=== PATIENT | female | born 1960 | race Caucasian/White ===

== ENCOUNTER 2016-11-13 11:57 | Emergency (ER) | payer MEDICAID, OTHER ==
[~2016-11-13] VITALS: Ht 142.2 cm; Wt 45.4 kg
[2016-11-13 13:15] LABS: Basophils # (auto) 0 uL; Basophils % (auto) 0.1 % (0.0-2.0); DEFINITIVE VIEW TRANSMISSION; Eosinophils # (auto) 0.1 uL; Eosinophils % (auto) 0.6 % (0.0-7.0); Hematocrit 40.7 % (36.0-46.0); Hemoglobin 12.7 g/dL (12.2-16.2); Lymphocytes # (auto) 0.8 uL; Lymphocytes % (auto) 5.9 % (10.0-50.0); Mean Corpuscular Hemoglobin 26.8 pg (28.0-32.0); Mean Corpuscular Hgb Conc. 31.2 g/dL (32.0-36.0); Mean Corpuscular Volume 85.9 fL (80.0-100.0); Mean Platelet Volume 8.8 fL (7.4-10.4); Monocytes # (auto) 1.2 uL; Monocytes % (auto) 8.3 % (0.0-12.0); Neutrophils # (auto) 12.1 uL; Neutrophils % (auto) 85.1 % (37.0-80.0); Platelet Count (auto) 336 10^3/uL (140-450); Red Cell Distribution Width 15.8 % (11.6-16.0); White Blood Cell 14.2 10^3/uL (4.4-10.8)
[2016-11-13] MEDS ORDERED: TETANUS-DIPTH-ACEL PERTUSSIS 0.5ML SYRG IM ONE (13:15)
[2016-11-13 13:37] LABS: Albumin 2.8 g/dL (3.4-5.0); BUN/Creatinine Ratio 8.5; Calcium 9.2 mg/dL (8.5-10.1); Magnesium 2.2 mg/dL (1.6-2.6); Potassium 3.8 mmol/L (3.5-5.1)
[2016-11-13] MEDS ORDERED: MORPHINE SULF INJ 2 MG/ML SYRINGE 1ML IV ONE ×4 (13:45→21:30)
[2016-11-13] MEDS ORDERED: ONDANSETRON HCL 4 MG/2 ML VIAL IV ONE ×4 (13:45→21:30)
[2016-11-13] MEDS ORDERED: SODIUM CHLORIDE 0.9% 1,000 ML IV ONE (13:45)
[2016-11-13 14:46] LABS: Bilirubin, Total 1.1 mg/dL (0.2-1.0); Total Protein 7.1 g/dL (6.4-8.2)
[2016-11-13 22:09] VITALS: BP 118/73
== END 2016-11-13 22:50 | disposition short-term general hospital (02) ==
LOC: ER 11:57
DX: S22.32XA Fracture of one rib, left side, initial encounter for closed fracture (principal); S61.217A Laceration without foreign body of left little finger without damage to nail, initial encounter; R06.02 Shortness of breath; I10 Essential (primary) hypertension; V49.9XXA Car occupant (driver) (passenger) injured in unspecified traffic accident, initial encounter; Y93.89 Activity, other specified; Y99.8 Other external cause status; Y92.89 Other specified places as the place of occurrence of the external cause
CPT/HCPCS: 36415; 71250; 73110; 73130; 74176; 80053; 83735; 84484; 85025; 90471; 90715; 96361; 96374; 96375; 96376; 99285; J2270; J2405; J7030

== ENCOUNTER 2024-02-21 12:05 | Inpatient (IN) | payer MEDICAID ==
[~2024-02-21] VITALS: Ht 152.4 cm; Wt 109.0 kg
[2024-02-21 12:50] LABS: Basophils # (auto) 0.1 10 ^3/uL (0-0.2); Basophils % (auto) 0.6 % (0.0-2.0); Eosinophils # (auto) 0.1 10 ^3/uL (0-0.8); Eosinophils % (auto) 0.9 % (0.0-7.0); Hematocrit 45.6 % (36.0-46.0); Lymphocytes # (auto) 1.3 10 ^3/uL (0.4-5.4); Lymphocytes % (auto) 9.2 % (10.0-50.0); Mean Corpuscular Hemoglobin 29.2 pg (28.0-32.0); Mean Corpuscular Hgb Conc. 32.9 g/dL (32.0-36.0); Mean Corpuscular Volume 88.8 fL (80.0-100.0); Monocytes % (auto) 7.2 % (0.0-12.0); Neutrophils # (auto) 11.7 10 ^3/uL (1.6-8.6); Neutrophils % (auto) 82.1 % (37.0-80.0); Red Blood Cells 5.13 10^6/uL (4.0-5.20); Red Cell Distribution Width 13.9 % (11.8-14.3); White Blood Cell 14.2 10^3/uL (4.4-10.8)
[2024-02-21 13:00] LABS: Chloride 108 mmol/L (98-107); Potassium 4.5 mmol/L (3.5-5.1); Sodium 139 mmol/L (136-145)
[2024-02-21 13:01] LABS: Anion Gap 6 (5-15); Calcium 9.7 mg/dL (8.7-10.4); Carbon Dioxide 25 mmol/L (20-30)
[2024-02-21 13:06] LABS: BUN/Creatinine Ratio 11.2 (10.0-20.0); Blood Urea Nitrogen 12 mg/dL (9-23); Glucose 111 mg/dL (74-106); Lipase 46 U/L (12-53)
[2024-02-21] MEDS: cefTRIAXone 1GM/50ML D5W 50 ML IV ONE (13:33)
[2024-02-21] MEDS: SODIUM CHLORIDE 0.9% 1,000 ML IV ONE (13:33)
[2024-02-21] MEDS ORDERED: DOCUSATE SOD 100 MG CAP PO PRN (15:45)
[2024-02-21] MEDS: SODIUM CHLORIDE 0.9% 1,000 ML IV SCH (15:45)
[2024-02-21] MEDS: MORPHINE SULFATE INJ 2 MG/ml SYRG IV PRN (17:40)
[2024-02-21] MEDS: ONDANSETRON HCL 4 MG/2 ML VIAL IV PRN (17:40)
[2024-02-21 18:01] VITALS: BP 122/72; PULSE 65; RESP 20; TEMP 98.4; O2SAT 96
[2024-02-21 18:15] VITALS: BP 122/72; PULSE 74; RESP 20; TEMP 98.4; O2SAT 96
[2024-02-21] MEDS: PIPERACILLIN-TAZOB 3.375GM 100 ML IV SCH (18:23)
[2024-02-21 21:00] VITALS: BP 134/70; PULSE 74; RESP 20; TEMP 97.6; O2SAT 90
[2024-02-21] MEDS: HYDROmorphone HCL 2 MG/ML VL/or syr IV ONE (21:53)
[2024-02-22] VITALS (7 sets, daily range): BP systolic 102–119; BP diastolic 48–61; PULSE 20–91; RESP 18–20; TEMP 97.7–100.4; O2SAT 90–96
[2024-02-22 07:23] LABS: Basophils # (auto) 0.1 10 ^3/uL (0-0.2); Basophils % (auto) 0.6 % (0.0-2.0); Eosinophils # (auto) 0.1 10 ^3/uL (0-0.8); Eosinophils % (auto) 0.9 % (0.0-7.0); Hematocrit 45.9 % (36.0-46.0); Hemoglobin 14.9 g/dL (12.2-16.2); Lymphocytes % (auto) 8.5 % (10.0-50.0); Mean Corpuscular Hemoglobin 28.7 pg (28.0-32.0); Mean Corpuscular Hgb Conc. 32.4 g/dL (32.0-36.0); Mean Corpuscular Volume 88.5 fL (80.0-100.0); Monocytes # (auto) 0.7 10 ^3/uL (0-1.3); Monocytes % (auto) 6.5 % (0.0-12.0); Neutrophils # (auto) 9.5 10 ^3/uL (1.6-8.6); Neutrophils % (auto) 83.5 % (37.0-80.0); Red Blood Cells 5.18 10^6/uL (4.0-5.20); Red Cell Distribution Width 13.8 % (11.8-14.3); White Blood Cell 11.3 10^3/uL (4.4-10.8)
[2024-02-22 07:35] LABS: Alanine Aminotransferase 14 U/L (7-40); Albumin 3.9 g/dL (3.2-4.8); Alkaline Phosphatase 152 U/L (46-116); Anion Gap 7 (5-15); Aspartate Aminotransferase 14 U/L (13-40); BUN/Creatinine Ratio 7.8 (10.0-20.0); Blood Urea Nitrogen 10 mg/dL (9-23); Carbon Dioxide 24 mmol/L (20-30); Chloride 108 mmol/L (98-107); Glucose 108 mg/dL (74-106); Potassium 4.4 mmol/L (3.5-5.1); Sodium 139 mmol/L (136-145)
[2024-02-22 07:36] LABS: Total Protein 6.2 g/dL (5.7-8.2)
[2024-02-23] VITALS (8 sets, daily range): BP systolic 91–131; BP diastolic 41–69; PULSE 66–85; RESP 17–19; TEMP 97.1–98.7; O2SAT 93–96
[2024-02-23 12:50] LABS: Urine Bacteria FEW /hpf (None Seen); Urine Blood Negative /uL (Negative); Urine Clarity Clear (Clear); Urine Color Light-Yellow (Yellow); Urine Protein, UAD Negative (Negative); Urine Urobilinogen Normal (Negative); Urine WBC 3 /hpf (0 - 5); Urine pH 6.5 (5.0-9.0)
[2024-02-24] VITALS (7 sets, daily range): BP systolic 114–138; BP diastolic 59–76; PULSE 66–94; RESP 20; TEMP 98.4–98.8; O2SAT 93–96
[2024-02-24] MEDS: MANNITOL FTV 25% 12.5 GM/50 ML 50 ML IV ONE (15:30)
[2024-02-25 01:01] VITALS: BP 140/85; PULSE 81; RESP 18; TEMP 98.4; O2SAT 92
[2024-02-25 05:01] VITALS: BP 114/78; PULSE 81; RESP 20; TEMP 98.2; O2SAT 91
[2024-02-25 08:00] VITALS: PULSE 88; RESP 20; O2SAT 95
[2024-02-25 08:23] VITALS: BP 122/72; PULSE 78; RESP 20; TEMP 98; O2SAT 94
[2024-02-25 12:40] VITALS: BP 101/56; PULSE 64; RESP 20; TEMP 98; O2SAT 95
[2024-02-25] MEDS ORDERED: LEVO500T91 PO (12:58)
[2024-02-25] MEDS ORDERED: TAMS-35 PO (13:02)
[2024-02-25] MEDS ORDERED: PIPERACILLIN-TAZOB 3.375GM 100 ML IV SCH (21:00)
== END 2024-02-25 16:20 | disposition home or self-care (01) | DRG 465 ==
LOC: EDBD 12:05 → ER 12:05 → OVERFLOW 15:54 → WEST WING 17:53
PROVIDERS: ADMIT Nurse Practitioner Family; ATTEND Internal Medicine
DX: N13.2 Hydronephrosis with renal and ureteral calculous obstruction (principal); N17.0 Acute kidney failure with tubular necrosis; D72.829 Elevated white blood cell count, unspecified; K42.9 Umbilical hernia without obstruction or gangrene; K43.9 Ventral hernia without obstruction or gangrene; I10 Essential (primary) hypertension; N21.1 Calculus in urethra; F17.290 Nicotine dependence, other tobacco product, uncomplicated; Z82.49 Family history of ischemic heart disease and other diseases of the circulatory system; Z83.3 Family history of diabetes mellitus; Z79.899 Other long term (current) drug therapy
CPT/HCPCS: 36415; 74176; 80048; 80053; 81001; 83690; 85025; 93005; 96365; 96375; G0378; J2405; J2543

== ENCOUNTER 2024-09-02 15:00 | Inpatient (IN) | payer MEDICAID ==
[~2024-09-02] VITALS: Ht 172.7 cm; Wt 118.6 kg
[2024-09-02] MEDS: CEFEPIME 1GM/ 50ML 50 ML IV SCH (02:00)
[~2024-09-02 15:00] MED LIST: LEVO500T91 PO; TAMS-35 PO
--- NOTE | 2024-09-02 15:14 | ED.PDOC ---
SOB-HPI HPI Comments 63y F who presents to the ED via EMS for chief complaint of shortness of breath. Per EMS, pt has been having shortness of breath, back pain and fever since last night PM. Pt states her symptoms have been worsening and eventually called EMS to the scene. EMS on scene noted pt had 70% 02 sat on room air with noted respiratory distress. Pt was placed on BIPAP and brought to the ED. Pt in the ED, noted to have increased respiratory distress with 02 sat of 80% and temp of 102F and heart rate of 120 in the ED. Pt unable to answer any questions due to her respiratory distress. 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 all SCRAP PICKER Hx Family History Family History: No family hx of HTN Social History Smoker: Non-Smoker Alcohol: Rarely Drugs: Denies Drug Use Lives In: Home Constitutional: reports: fever; denies: chills, diaphoresis, fatigue, malaise, sweats, weakness, others EENTM: denies: blurred vision, double vision, ear bleeding, ear discharge, ear drainage, ear pain, ear ringing, eye pain, eye redness, hearing loss, mouth pain, mouth swelling, nasal discharge, nose bleeding, nose congestion, nose pain, photophobia, tearing, throat pain, throat swelling, voice changes, others Respiratory: reports: SOB at rest, shortness of breath, SOB with excertion; denies: cough, hemoptysis, orthopnea, stridor, wheezing, others Cardiovascular: denies: chest pain, dizzy spells, diaphoresis, Dyspnea on exertion, edema, irregular heart beat, left arm pain, lightheadedness, palpitations, PND, syncope, others Gastrointestinal: denies: abdomen distended, abdominal pain, blood streaked bowels, constipated, diarrhea, dysphagia, difficulty swallowing, hematemesis, melena, nausea, poor appetite, poor fluid intake, rectal bleeding, rectal pain, vomiting, others Genitourinary: denies: abnormal vagina bleeding, burning, dyspareunia, dysuria, flank pain, frequency, hematuria, incontinence, pain, , vagina discharge, urgency, others Neurological: denies: dizziness, fainting, headache, left sided numbness, left sided weakness, numbness, paresthesia, pre-existing deficit, right sided numbness, right sided weakness, seizure, speech problems, tingling, tremors, weakness, others Musculoskeletal: reports: back pain; denies: gout, joint pain, joint swelling, muscle pain, muscle stiffness, neck pain, others Integumetry: denies: bruises, change in color, change in hair/nails, dryness, laceration, lesions, lumps, rash, wounds, others Allergic/Immunocompromised: denies: Difficulty Healing, Frequent Infections, Hives, Itching, others Hematologic/Lymphatic: denies: anemia, blood clots, easy bleeding, easy bruising, swollen glands, others Endocrine: denies: excessive hunger, excessive sweating, excessive thirst, excessive urination, flushing, intolerance to cold, intolerance to heat, unexplained weight gain, unexplained weight loss, others Psychiatric: denies: anxiety, bipolar disorder, depression, hopeless, panic disorder, schizophrenia, sleepless, suicidal, others All Other Systems: Reviewed and Negative Physical Exam General Appearance: Severe Distress, Other HEENT: Normal ENT Inspection, Pharynx Normal, TMs Normal Neck: Full Range of Motion, Non-Tender, Normal, Normal Inspection Respiratory: Crackles, Respiratory Distress, Wheezing Cardiovascular: Tachycardia Breast Exam: Deferred Gastrointestinal: No Organomegaly, Non Tender, No Pulsatile Mass, Normal Bowel Sounds, Soft Genitalia: Deferred Pelvic: Deferred Rectal: Deferred Extremities: No calf tenderness, Normal capillary refill, Normal inspection, Normal range of motion, Non-tender, No pedal edema Neurologic: Other (Infused) Cerebellar Function: NOT DONE Reflexes: NOT DONE Skin: Cyanosis Lymphatic: No Adenopathy Was a procedure done? 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 Room prepared for procedure: Yes Maximal sterile barrier precau: Sterlie gloves, Large sterlie drape Skin preparation completely dr: Yes Insertion site: Right, Internal jugular Intubation Indication: Airway Protection Prep: Preoxygenation Pretreated with: Sedation (etomidate 20) Medicated with: Vecuronium (100mg rocuronium) Intubation Approach: Orotracheal Intubation size: cm (8.0) Differential Dx Differential Diagnosis: Bronchitis, Cardiogenic Shock, CHF, COPD, Pneumonia, Pulmonary Embolism, Respiratory Distress Comments COVID, Influenza A and B, X-Ray, Labs, Meds, VS Vital Signs Date Time Temp Pulse Resp B/P (MAP) Pulse Ox O2 Delivery O2 Flow Rate FiO2 09/02/24 18:45 101.7 112 20 86/48 (61) 95 101.7 09/02/24 18:45 86/48 09/02/24 18:36 89/52 09/02/24 18:36 102.0 114 20 89/52 (64) 94 102.0 09/02/24 18:30 86/52 09/02/24 18:15 102.9 121 20 101/56 (71) 93 102.9 09/02/24 18:06 103.5 125 20 103/57 (72) 92 103.5 09/02/24 18:00 103/57 09/02/24 18:00 103/57 09/02/24 17:46 140 18 106/52 (70) 95 09/02/24 17:37 127/68 09/02/24 17:30 143 18 127/68 (87) 95 09/02/24 17:15 144 18 140/67 (91) 95 09/02/24 17:11 100/46 09/02/24 17:10 78 20 158/67 (97) 95 100 09/02/24 17:00 143 20 100/46 (64) 83 09/02/24 17:00 100/46 09/02/24 17:00 100/46 09/02/24 16:45 147 20 175/85 (115) 84 09/02/24 16:34 144 18 163/82 (109) 84 09/02/24 16:30 163/82 09/02/24 16:13 124 09/02/24 16:12 127/64 09/02/24 16:00 103.9 129 20 183/89 (120) 83 103.9 09/02/24 16:00 135 09/02/24 15:54 134 20 183/89 (120) 91 100 09/02/24 15:41 127/67 09/02/24 15:40 103.9 117 55 09/02/24 15:39 Mechanical Ventilator+ 100 100 09/02/24 15:39 117 24 127/67 (87) 92 09/02/24 15:07 102.0 120 60 127/99 (108) 86 Lab Test 09/02/24 17:44 09/02/24 16:28 09/02/24 16:00 09/02/24 15:29 Range/Units Lactic Acid Level 2.6 *H 2.5 *H 0.4-2.0 mmol/L Troponin I High Sensitivity 45 *H 18 </=34 ng/L White Blood Count 32.9 *H 4.4-10.8 10^3/uL Red Blood Count 5.90 H 4.0-5.20 10^6/uL Hemoglobin 17.6 H 12.2-16.2 g/dL Hematocrit 53.2 H 36.0-46.0 % Mean Corpuscular Volume 90.2 80.0-100.0 fL Mean Corpuscular Hemoglobin 29.9 28.0-32.0 pg Mean Corpuscular Hemoglobin Concent 33.1 32.0-36.0 g/dL Red Cell Distribution Width 13.8 11.8-14.3 % Platelet Count 316 140-450 10^3/uL Mean Platelet Volume 8.0 6.9-10.8 fL Neutrophils (%) (Auto) 37.0-80.0 % Lymphocytes (%) (Auto) 10.0-50.0 % Monocytes (%) (Auto) 0.0-12.0 % Basophils (%) (Auto) 0.0-2.0 % Neutrophils # (Auto) 1.6-8.6 10 ^3/uL Lymphocytes # (Auto) 0.4-5.4 10 ^3/uL Monocytes # (Auto) 0-1.3 10 ^3/uL Differential Total Cells Counted 100.0 100 Neutrophils % (Manual) 57 37.0-80.0 Band Neutrophils % (Manual) 28 Lymphocytes % (Manual) 5 L 10.0-50.0 Monocytes % (Manual) 10 0-12 Eosinophils % (Manual) 0 0-7 Basophils % (Manual) 0 0.0-2.0 Metamyelocytes % (manual) 0 Myelocytes % (Manual) 0 Promyelocytes % (Manual) 0 Blast Cells % (Manual) 0 Reactive Lymphocytes 0 Platelet Estimate Adequate [place] Cells Moderate Sodium Level 135 L 136-145 mmol/L Potassium Level 4.1 3.5-5.1 mmol/L Chloride Level 103 98-107 mmol/L Carbon Dioxide Level 20 20-31 mmol/L Anion Gap 12 5-15 Blood Urea Nitrogen 15 9-23 mg/dL Creatinine 0.96 0.550-1.02 mg/dL Glomerular Filtration Rate Calc 67 >90 mL/min BUN/Creatinine Ratio 15.6 10.0-20.0 Serum Glucose 135 H 74-106 mg/dL Calcium Level 10.2 8.7-10.4 mg/dL Total Bilirubin 2.6 H 0.2-1.0 mg/dL Aspartate Amino Transferase (AST) 49 H 13-40 U/L Alanine Aminotransferase (ALT) 32 7-40 U/L Alkaline Phosphatase 164 H 46-116 U/L B-Type Natriuretic Peptide 249.65 0-100 pg/mL Total Protein 6.7 5.7-8.2 g/dL Albumin 4.2 3.2-4.8 g/dL Lipase 20 12-53 U/L Urine Color Yellow Yellow Urine Clarity Turbid H Clear Urine pH 5.5 5.0-9.0 Urine Specific [place] 1.024 1.001-1.035 Urine Protein Trace H Negative Urine Ketones Trace Negative Urine Blood Negative Negative /uL Urine Nitrite Negative Negative Urine Bilirubin Negative Negative Urine Urobilinogen 3 H Negative mg/dL Urine Leukocyte Esterase 2+ Negative /uL Urine RBC 1 0 - 4 /hpf Urine WBC 9 0 - 5 /hpf Urine Squamous Epithelial Cells Mod <5 /hpf Urine Bacteria Few H None Seen /hpf Urine Glucose Normal Normal mg/dL Influenza Type A Antigen Negative Negative Influenza Type B Antigen Negative Negative Test 09/02/24 15:13 Range/Units Blood Gas Specimen Type Arterial Blood Gas Sample Site Left radial Blood Gas Patient Temperature 37.0 Arterial Blood Date Drawn [id number] Arterial Blood pH 7.476 H 7.350-7.450 Arterial Blood Partial Pressure CO2 30.2 L 32.0-45.0 mmHg Arterial Blood Partial Pressure O2 48.4 *L 83.0-108.0 mmHg Arterial Blood HCO3 21.8 21.0-28.0 mmol/L Arterial Blood Oxygen Saturation 86.6 L 94.0-98.0 % Arterial Blood Base Excess -0.5 -2.0-3.0 mmol/L Arterial Blood Oxyhemoglobin 84.4 L 94.0-98.0 % Arterial Blood Carboxyhemoglobin 2.3 H 0.5-1.5 % Arterial Blood Methemoglobin 0.2 0.0-1.5 % Cy Test Modified Blood Gas Total Hemoglobin 16.80 H 12.0-16.0 g/dL Blood Gas Set Respiration Rate 12.0 Blood Gas Modality Mask - bipap FiO2 % 100.0 Blood Gas EPAP 5 Blood Gas IPAP 20 Blood Gas Critical Value Read Back yes Blood Gas Notified Whom lakshmi Napier md Blood Gas Notified Time [id number] Blood Gas Notified By Microbiology Date/Time Source Procedure Growth Status 09/02/24 17:44 Blood Blood Culture - Preliminary Resulted 09/02/24 16:28 Blood Blood Culture - Preliminary NO GROWTH AFTER 48 HOURS OF INCUBATION. Resulted 09/02/24 16:00 Urine - [place] Urine Culture - Preliminary Resulted 09/02/24 15:35 Sputum Gram Stain - Final Resulted 09/02/24 15:35 Respiratory Culture - Preliminary Methicillin Resistant S.aureus Resulted [place] [address] Ph: [phone] DIAGNOSTIC IMAGING Diagnostic Imaging Report : [id number] Signed PATIENT: JJ GLYNNT: [id number] UNIT: [id number] : 1960 LOC: ER ROOM / BED: / AGE / SEX: 63 / F ADM STATUS: REG ER SERVICE 1529 ORDERING PHYSICIAN: BALDEV NAPIER MD PROCEDURE(s): CXRP - CHEST PORTABLE REASON: sob ORDER NUMBER(s): [id number], ACCESSION NUMBER(s): [id number] CHEST RADIOGRAPH Indication: sob Technique: Single frontal view of the chest was obtained COMPARISON: None FINDINGS: Lines and Tubes: Endotracheal tube and enteric catheter in satisfactory position. Lungs: Bilateral lower lobe airspace disease. Pleura: Small left pleural effusion. No pneumothorax. Cardiomediastinal contours: Unremarkable Bones: Unremarkable IMPRESSION: Lines and tubes in satisfactory position. Pulmonary edema. ATED BY: JOVANI MCGHEE MD DICTATED DATE/TIME: 09/02/24 1635 SIGNED BY: JOVANI MCGHEE MD SIGNED DATE/TIME: 09/02/24 1635 CC: Time of 1ST Reevaluation: 15:40 Reevaluation 1ST: Unchanged Patient Education/Counseling: Diagnosis, Treatment Family Education/Counseling: No Family Present Departure 1 Departure Time of Disposition: 00:47 (Patient presenting respiratory distress. Patient was intubated and central line was placed. If you would labs he had x-ray and we will admit patient to ICU) Impression: Primary Impression: Acute respiratory failure Qualified Codes: J96.01 - Acute respiratory failure with hypoxia Additional Impression: Weakness Disposition: ADMITTED INPATIENT Admit to: ICU Condition: Critical Critical Care Note Critical Care Time?: Yes Critical care comment: Acute Respiratory failure Authorized and Performed by: Baldev Napier MD Total critical care time: Approximately 42 minutes Due to a high probability of clinically significant, life threatening deterioration, the patient required my highest level of preparedness to intervene emergently and I personally spent this critical care time directly and personally managing the patient. This critical care time included obtaining a history; examining the patient; pulse oximetry; ordering and review of studies; arranging urgent treatment with development of a management plan; evaluation of patient's response to treatment; frequent reassessment; and, discussions with other providers. This critical care time was performed to assess and manage the high probability of imminent, life-threatening deterioration that could result in multi-organ failure. It was exclusive of separately billable procedures and treating other patients and teaching time. Please see my other sections and the rest of the note for further information on patient assessment and treatment. Stability Stability form required: No Heart Score Heart Score: Heart Score Response (Comments) Value History Moderate Suspicious 1 EKG Repolarization Disturb 1 Age 45-64 1 Risk Factors 1 or 2 risk factors 1 Troponin 1-2 x's Normal limit 1 Total 5 I personally scribed for BALDEV NAPIER MD ([place]) on 09/02/24 at 15:14. Electronically submitted by Genoveva Oliveira ([email or web address]). I personally scribed for BALDEV NAPIER MD ([place]) on 09/02/24 at 16:22. Elec tronically submitted by Genoveva Oliveira (ELIJAH). I personally scribed for BALDEV NAPIER MD ([facility]) on 09/02/24 at 16:49. Electron[facility] ([facility] I personally scribed for BALDEV NAPIER MD ([facility]) on 09/02/24 at 17:07. Electronically submitted by Genoveva Oliveira ([facility]). BALDEV NAPIER MD Sep 02, 2024 15:14
[2024-09-02] MEDS: KETAMINE 50mg/ML 10ml Vial (500mg/10ml) IV ONE (15:25)
[2024-09-02] MEDS: ALBUTEROL SULF 2.5 MG/0.5ML(0.5%) NEB SOLN NEB ONE (15:30)
[2024-09-02] MEDS: IPRATROPIUM BROM 0.5 MG/2.5ML INH SOL NEB ONE (15:30)
[2024-09-02] MEDS: ETOMIDATE (2MG/ML) 20ML VIAL IV ONE ×2 (15:41→15:42)
[2024-09-02] MEDS: ROCURONIUM 10MG/ML 10ML VIAL IV ONE ×4 (15:41→17:11)
[2024-09-02] MEDS: fentaNYL Drip 2500mCg/250mlNS 250 ML IV SCH (15:45)
[2024-09-02] MEDS: MIDAZOLAM DRIP 50 mg/50mL 50 ML IV SCH (15:45)
[2024-09-02] MEDS: PROPOFOL 100 ML IV SCH ×2 (15:45→16:12)
[2024-09-02] MEDS: PROPOFOL 100 ML IV ONE (15:48)
[2024-09-02] MEDS: KETAMINE 50mg/ML 10ml Vial 10 ML ONE (15:48)
--- NOTE | 2024-09-02 16:39 | DVH ---
CHEST RADIOGRAPH Indication: sob Technique: Single frontal view of the chest was obtained COMPARISON: None FINDINGS: Lines and Tubes: Endotracheal tube and enteric catheter in satisfactory position. Lungs: Bilateral lower lobe airspace disease. Pleura: Small left pleural effusion. No pneumothorax. Cardiomediastinal contours: Unremarkable Bones: Unremarkable IMPRESSION: Lines and tubes in satisfactory position. Pulmonary edema.
[2024-09-02] MEDS: ACETAMINOPHEN IV 1000 MG/100ML (10MG/ML) IV STA (16:53)
[2024-09-02 16:55] LABS: Mean Corpuscular Hemoglobin 29.9 pg (28.0-32.0)
[2024-09-02 16:58] LABS: Hematocrit 53.2 % (36.0-46.0); Hemoglobin 17.6 g/dL (12.2-16.2); Mean Corpuscular Hgb Conc. 33.1 g/dL (32.0-36.0); Mean Corpuscular Volume 90.2 fL (80.0-100.0); Platelet Count (auto) 316 10^3/uL (140-450); Red Cell Distribution Width 13.8 % (11.8-14.3)
[2024-09-02 17:07] LABS: White Blood Cell 32.9 10^3/uL (4.4-10.8)
[2024-09-02 17:09] LABS: Basophils % (manual) 0 (0.0-2.0); Blast Cells 0; Eosinophils % (manual) 0 (0-7); Metamyelocytes % 0; Myelocytes % 0; Promyelocytes % 0; Reactive Lymphocytes 0
[2024-09-02 17:23] LABS: Alanine Aminotransferase 32 U/L (7-40); Albumin 4.2 g/dL (3.2-4.8); Alkaline Phosphatase 164 U/L (46-116); Anion Gap 12 (5-15); Aspartate Aminotransferase 49 U/L (13-40); BUN/Creatinine Ratio 15.6 (10.0-20.0); Bilirubin, Total 2.6 mg/dL (0.2-1.0); Blood Urea Nitrogen 15 mg/dL (9-23); Calcium 10.2 mg/dL (8.7-10.4); Carbon Dioxide 20 mmol/L (20-31); Chloride 103 mmol/L (98-107); Glucose 135 mg/dL (74-106); Potassium 4.1 mmol/L (3.5-5.1); Sodium 135 mmol/L (136-145); Total Protein 6.7 g/dL (5.7-8.2)
[2024-09-02 17:25] LABS: Lipase 20 U/L (12-53)
[2024-09-02 17:27] LABS: Lactic Acid w/Reflex 2.5 mmol/L (0.4-2.0)
[2024-09-02 17:28] LABS: Base Excess -0.5 mmol/L (-2.0-3.0)
[2024-09-02 17:33] LABS: Urine Bacteria FEW /hpf (None Seen); Urine Blood Negative /uL (Negative); Urine Clarity Turbid (Clear); Urine Color Yellow (Yellow); Urine Protein, UAD TRACE (Negative); Urine Specific Gravity 1.024 (1.001-1.035); Urine Squamous Epithelial Cell MOD /hpf (<5); Urine Urobilinogen 3 mg/dL (Negative); Urine WBC 9 /hpf (0 - 5); Urine pH 5.5 (5.0-9.0)
[2024-09-02] MEDS: VANCOMYCIN 1GM/250ML KIT 200 ML IV ONE (17:36)
[2024-09-02] MEDS: FUROSEMIDE 40 MG/4 ML VIAL IV ONE (17:37)
[2024-09-02 17:50] LABS: Band Neutrophils % (manual) 28; Lymphocytes % (manual) 5 (10.0-50.0); Monocytes % (manual) 10 (0-12); Platelet Estimate Adequate
[2024-09-02] MEDS ORDERED: VANCOMYCIN PER PHARMACY 0 MG IV SCH (18:30)
[2024-09-02] MEDS: KETOROLAC TROMETH 30 MG/ML 1ML VIAL IV ONE (18:37)
--- NOTE | 2024-09-02 18:48 | DVHINCON2 ---
Date of service: Sep 02, [address] Banda Reason for Consultation Acute hypoxic respiratory failure History of Present Illness 63-year-old woman history of hypertension, pulmonary embolism, morbid obesity who presented with a chief complaint of shortness of breath. She has been having shortness of breath, back pain and fever since the night prior to admission. Her symptoms worsened and called EMS for transportation to the ED. EMS found her to have a pulse oximetry reading of 70% on room air and in respiratory distress. She was initiated on noninvasive positive pressure ventilation. In the emergency department she continued to be febrile and hypoxic. She was tachycardic. She was emergently intubated and placed on mechanical ventilation. History is obtained from EMR, RN and MD caring for patient. Pulmonary consultation is called due to acute hypoxic respiratory failure on mechanical ventilator management. Review of systems: Fever, shortness of breath at rest and exertion, back pain. 14 point review of systems unable to be obtained due to patient's critical condition. Past medical history: Hypertension, pulmonary embolism Past surgical history: Hernia repair Medications: Reviewed Allergies: No known drug allergies. Family history: No family history of premature CAD. No family history of lung disease. Social history: Nonsmoker. Social alcohol use. No illicit drug use. Lives at home. Family History: Diabetes mellitus G8 BROTHER FH: hypertension G8 FATHER Allergies: Coded Allergies: Hydrocodone (Verified Allergy, Mild, 09/02/24) Itchy Home Meds Active Scripts Tamsulosin Hcl (Flomax) 0.4 Mg Cap, 1 CAP PO HS, #10 CAP 11 Refills Prov:RADHA DE LA TORRE MD 02/25/24 Levofloxacin Hemihydrate (LEVAQUIN 500 MG) 500 Mg Tab, 1 TAB PO DAILY, #7 TAB Prov:RADHA DE LA TORRE MD 02/25/24 Current Medications Current Medications Medications (Trade) Dose Ordered Sig/[place] Route PRN Reason Start Time Stop Time Status Last Admin Propofol 100 ml @ 3.54 mls/hr Q24H IV 09/02/24 15:45 09/02/24 17:24 DC Midazolam HCl 50 ml @ 1 mls/hr Q24H IV 09/02/24 15:45 Fentanyl Citrate 250 ml @ 2.5 mls/hr Q24H IV 09/02/24 15:45 Propofol 100 ml @ 3.54 mls/hr Q24H IV 09/02/24 15:45 09/02/24 16:12 Acetaminophen (Ofirmev) 1,000 mg ONCE STAT IV 09/02/24 16:35 09/02/24 16:36 DC 09/02/24 16:53 Vancomycin HCl 0 ml @ 0 mls/hr UD IV 09/02/24 18:30 UNV Cefepime HCl 50 ml @ 12.5 mls/hr Q8H IV 09/02/24 02:00 Albuterol (Ventolin Medneb) 2.5 mg Q4HWA PRN NEB SHORTNESS OF BREATH 09/02/24 18:30 Ipratropium [place] (Atrovent Medneb) 0.5 mg Q4HWA PRN NEB SHORTNESS OF BREATH 09/02/24 18:30 Vital Signs Vital Signs Date Time Temp Pulse Resp B/P (MAP) Pulse Ox O2 Delivery O2 Flow Rate FiO2 09/02/24 17:37 127/68 09/02/24 16:13 124 09/02/24 15:54 20 91 100 09/02/24 15:07 102.0 Physical Exam Gen.: Patient lying in bed in medical ICU. Sedated, intubated on mechanical ventilator. Head: Normocephalic, atraumatic. Eyes: PERRLA. Ears: Normal external anatomy. Throat: Endotracheal tube and orogastric tube in place. Neck: Supple, trachea midline. Chest: Transmitted breath sounds bilaterally. Decreased air entry bilaterally. No wheezing. Bibasilar crackles. Cardio vascular: Positive S1, positive S2. Regular rate and rhythm. Abdomen: Positive bowel sounds in all 4 quadrants. Soft, nontender, nondistended. : Vasquez in place. Normal external genitalia. Rectal: Deferred Skin: Warm, dry. Intact. Extremities: 2+ radial pulses bilaterally. No lower extremity edema. Neuro: Sedated. Labs/Diagnostic Data Labs Test 09/02/24 17:44 09/02/24 16:28 09/02/24 16:00 09/02/24 15:13 Range/Units White Blood Count 32.9 *H 4.4-10.8 10^3/uL Red Blood Count 5.90 H 4.0-5.20 10^6/uL Hemoglobin 17.6 H 12.2-16.2 g/dL Hematocrit 53.2 H 36.0-46.0 % Mean Corpuscular Volume 90.2 80.0-100.0 fL Mean Corpuscular Hemoglobin 29.9 28.0-32.0 pg Mean Corpuscular Hemoglobin Concent 33.1 32.0-36.0 g/dL Red Cell Distribution Width 13.8 11.8-14.3 % Platelet Count 316 140-450 10^3/uL Mean Platelet Volume 8.0 6.9-10.8 fL Neutrophils (%) (Auto) 37.0-80.0 % Lymphocytes (%) (Auto) 10.0-50.0 % Monocytes (%) (Auto) 0.0-12.0 % Basophils (%) (Auto) 0.0-2.0 % Neutrophils # (Auto) 1.6-8.6 10 ^3/uL Lymphocytes # (Auto) 0.4-5.4 10 ^3/uL Monocytes # (Auto) 0-1.3 10 ^3/uL Differential Total Cells Counted 100.0 100 Neutrophils % (Manual) 57 37.0-80.0 Band Neutrophils % (Manual) 28 Lymphocytes % (Manual) 5 L 10.0-50.0 Monocytes % (Manual) 10 0-12 Eosinophils % (Manual) 0 0-7 Basophils % (Manual) 0 0.0-2.0 Metamyelocytes % (manual) 0 Myelocytes % (Manual) 0 Promyelocytes % (Manual) 0 Blast Cells % (Manual) 0 Reactive Lymphocytes 0 Platelet Estimate Adequate [place] Cells Moderate Sodium Level 135 L 136-145 mmol/L Potassium Level 4.1 3.5-5.1 mmol/L Chloride Level 103 98-107 mmol/L Carbon Dioxide Level 20 20-31 mmol/L Anion Gap 12 5-15 Blood Urea Nitrogen 15 9-23 mg/dL Creatinine 0.96 0.550-1.02 mg/dL Glomerular Filtration Rate Calc 67 >90 mL/min BUN/Creatinine Ratio 15.6 10.0-20.0 Serum Glucose 135 H 74-106 mg/dL Calcium Level 10.2 8.7-10.4 mg/dL Total Bilirubin 2.6 H 0.2-1.0 mg/dL Aspartate Amino Transferase (AST) 49 H 13-40 U/L Alanine Aminotransferase (ALT) 32 7-40 U/L Alkaline Phosphatase 164 H 46-116 U/L B-Type Natriuretic Peptide 249.65 0-100 pg/mL Total Protein 6.7 5.7-8.2 g/dL Albumin 4.2 3.2-4.8 g/dL Lipase 20 12-53 U/L Urine Color Yellow Yellow Urine Clarity Turbid H Clear Urine pH 5.5 5.0-9.0 Urine Specific [place] 1.024 1.001-1.035 Urine Protein Trace H Negative Urine Ketones Trace Negative Urine Blood Negative Negative /uL Urine Nitrite Negative Negative Urine Bilirubin Negative Negative Urine Urobilinogen 3 H Negative mg/dL Urine Leukocyte Esterase 2+ Negative /uL Urine RBC 1 0 - 4 /hpf Urine WBC 9 0 - 5 /hpf Urine Squamous Epithelial Cells Mod <5 /hpf Urine Bacteria Few H None Seen /hpf Urine Glucose Normal Normal mg/dL Blood Gas Specimen Type Arterial Blood Gas Sample Site Left radial Blood Gas Patient Temperature 37.0 Arterial Blood Date Drawn [id number] Arterial Blood pH 7.476 H 7.350-7.450 Arterial Blood Partial Pressure CO2 30.2 L 32.0-45.0 mmHg Arterial Blood Partial Pressure O2 48.4 *L 83.0-108.0 mmHg Arterial Blood HCO3 21.8 21.0-28.0 mmol/L Arterial Blood Oxygen Saturation 86.6 L 94.0-98.0 % Arterial Blood Base Excess -0.5 -2.0-3.0 mmol/L Arterial Blood Oxyhemoglobin 84.4 L 94.0-98.0 % Arterial Blood Carboxyhemoglobin 2.3 H 0.5-1.5 % Arterial Blood Methemoglobin 0.2 0.0-1.5 % Cy Test Modified Blood Gas Total Hemoglobin 16.80 H 12.0-16.0 g/dL Blood Gas Set Respiration Rate 12.0 Blood Gas Modality Mask - bipap FiO2 % 100.0 Blood Gas EPAP 5 Blood Gas IPAP 20 Blood Gas Critical Value Read Back yes Blood Gas Notified Whom lakshmi Napier md Blood Gas Notified Time [id number] Blood Gas Notified By Assessment Impression: Acute on chronic hypoxic respiratory failure On mechanical ventilator Pulmonary edema Pleural effusion, left Atelectasis Leukocytosis Lactic acidosis Morbid obesity, BMI 40 Plan: s/p intubation on mechanical ventilator CXR image and report reviewed. Devices in place. Pulmonary edema. Small left pleural effusion. Atelectasis. ABG reviewed. Alkalemia due to respiratory alkalosis, hypoxemia PaO2 40.4 mmHg On pressure control with a respiratory rate of 20, inspiratory pressure of 18, I-time of 0.9 seconds, peep of 12, FiO2 at 100%. Titrate FIO2 to keep O2 saturation above 92%. VAP bundle Daily ABG and CXR while intubated. Sedate for ventilatory synchrony Bronchodilators Start pressors if necessary for hemodynamic support. On pressors for hemodynamic support. Titrate to keep MAP above 65 mmHg/SBP above 90 mmHg. Continue antibiotics. F/u cultures. Elevated WBC, 32.9 Monitor renal function Monitor ins/outs. Monitor electrolytes. Supplement as necessary. Monitor lactic acid On IVF Nutritional support. Accucheks, ISS. GI/DVT prophylaxis. Condition: Critical Prognosis: Poor given multiple comorbidities. Rest of plan per hospitalist and other consultants. A total of 36 minutes of critical care time was spent reviewing the patient record, examining the patient, making a diagnostic and therapeutic plan, discussing this plan with the medical personnel, following up on diagnostic studies and following the patient for clinical stability excluding any and all procedures. At least 50% of this time was spent in direct, [id number] contact. Thank you Dr. Banda for allowing me to participate in this patient's care. Further recommendations will depend on patient's clinical course. Please do not hesitate to contact me if you have any questions or concerns. This medical document was created using an electronic medical record system with [employer] dictation system. Although this document has been carefully reviewed, there may still be some phonetic and typographical errors. These areas are purely typographical due to imperfections of the software programs, and do not reflect any compromise in the patient's medical care. Plan discussed with: Other (DEIDRE Collins, RT, MD) SHAI SINGH MD Sep 02, 2024 18:48
--- NOTE | 2024-09-02 19:04 | DVHHP2 ---
History of Present Illness Reason for Visit: shortness of breath History of Present Illness 63 yo morbidly obese with acute respiratory failure patient with PE acute respiratory failure requiring intubation patient at this point in time was shown to meet sepsis criteria and will continue to be maaged in an acute critical care setting Cardiovascular: HTN Pulmonary: Pulmonary embolus Review of Systems Constitutional: No: Fever, Chills, Sweats, Weakness, Malaise, Other Eyes: No: Pain, Vision change, Conjunctivae inflammation, Eyelid inflammation, Other, Redness Respiratory: Shortness of breath, SOB with excertion, Wheezing; No: Cough, Dry, Hemoptysis, Pleuritic Pain, Sputum, Wheezing, Other Cardiovascular: No: Chest Pain, Palpitations, Orthopnea, Paroxysmal Noc. Dyspnea, Edema, Lt Headedness, Other Gastrointestinal: No: Nausea, Vomiting, Abdominal Pain, Diarrhea, Constipation, Melena, Hematochezia, Other Genitourinary: No Dysuria, No Frequency, No Incontinence, No Hematuria, No Rete ntion, No Other Musculoskeletal: No: other, neck pain, shoulder pain, arm pain, back pain, hand pain, leg pain, foot pain Skin: No: Rash, Lesions, Jaundice, Bruising, Other Neurological: No: Weakness, Numbness, Incoordination, Change in speech, Confusion, Seizures, Other Allergies: Coded Allergies: NO KNOWN ALLERGIES (Unverified , 11/13/16) Medications Current Medications Medications Dose Ordered Sig/[place]acia Route Start Time Stop Time Status Last Admin Dose Admin Midazolam HCl 50 ml @ 1 mls/hr Q24H IV 09/02/24 15:45 Fentanyl Citrate 250 ml @ 2.5 mls/hr Q24H IV 09/02/24 15:45 Propofol 100 ml @ 3.54 mls/hr Q24H IV 09/02/24 15:45 09/02/24 16:12 3.54 MLS/HR Vancomycin HCl 0 ml @ 0 mls/hr UD IV 09/02/24 18:30 UNV Cefepime HCl 50 ml @ 12.5 mls/hr Q8H IV 09/02/24 02:00 Albuterol 2.5 mg Q4HWA PRN NEB 09/02/24 18:30 Ipratropium [place] 0.5 mg Q4HWA PRN NEB 09/02/24 18:30 Exam Vital Signs Vital Signs Date Time Temp Pulse Resp B/P (MAP) Pulse Ox O2 Delivery O2 Flow Rate FiO2 09/02/24 17:37 127/68 09/02/24 16:13 124 09/02/24 15:54 20 91 100 09/02/24 15:07 102.0 General Appearance: severe distress, Other (intubataed sedated ) HEENT: Atraumatic Respiratory: Clear to auscultation (mechanically intubated and sedated ) Cardiovascular: Regular rate (tachycardia noted ), Normal S1, Normal S2 Abdominal: Normal bowel sounds (morbid pannus limited physical palpation ), Soft Extremities: No clubbing Skin: No rashes, No breakdown Neuro: Normal gait, Normal speech Psych/Mental Status: Mood NL Labs/Xrays Labs Test 09/02/24 17:44 09/02/24 16:28 09/02/24 16:00 09/02/24 15:13 Range/Units White Blood Count 32.9 *H 4.4-10.8 10^3/uL Red Blood Count 5.90 H 4.0-5.20 10^6/uL Hemoglobin 17.6 H 12.2-16.2 g/dL Hematocrit 53.2 H 36.0-46.0 % Mean Corpuscular Volume 90.2 80.0-100.0 fL Mean Corpuscular Hemoglobin 29.9 28.0-32.0 pg Mean Corpuscular Hemoglobin Concent 33.1 32.0-36.0 g/dL Red Cell Distribution Width 13.8 11.8-14.3 % Platelet Count 316 140-450 10^3/uL Mean Platelet Volume 8.0 6.9-10.8 fL Neutrophils (%) (Auto) 37.0-80.0 % Lymphocytes (%) (Auto) 10.0-50.0 % Monocytes (%) (Auto) 0.0-12.0 % Basophils (%) (Auto) 0.0-2.0 % Neutrophils # (Auto) 1.6-8.6 10 ^3/uL Lymphocytes # (Auto) 0.4-5.4 10 ^3/uL Monocytes # (Auto) 0-1.3 10 ^3/uL Differential Total Cells Counted 100.0 100 Neutrophils % (Manual) 57 37.0-80.0 Band Neutrophils % (Manual) 28 Lymphocytes % (Manual) 5 L 10.0-50.0 Monocytes % (Manual) 10 0-12 Eosinophils % (Manual) 0 0-7 Basophils % (Manual) 0 0.0-2.0 Metamyelocytes % (manual) 0 Myelocytes % (Manual) 0 Promyelocytes % (Manual) 0 Blast Cells % (Manual) 0 Reactive Lymphocytes 0 Platelet Estimate Adequate Toy Cells Moderate Sodium Level 135 L 136-145 mmol/L Potassium Level 4.1 3.5-5.1 mmol/L Chloride Level 103 98-107 mmol/L Carbon Dioxide Level 20 20-31 mmol/L Anion Gap 12 5-15 Blood Urea Nitrogen 15 9-23 mg/dL Creatinine 0.96 0.550-1.02 mg/dL Glomerular Filtration Rate Calc 67 >90 mL/min BUN/Creatinine Ratio 15.6 10.0-20.0 Serum Glucose 135 H 74-106 mg/dL Calcium Level 10.2 8.7-10.4 mg/dL Total Bilirubin 2.6 H 0.2-1.0 mg/dL Aspartate Amino Transferase (AST) 49 H 13-40 U/L Alanine Aminotransferase (ALT) 32 7-40 U/L Alkaline Phosphatase 164 H 46-116 U/L B-Type Natriuretic Peptide 249.65 0-100 pg/mL Total Protein 6.7 5.7-8.2 g/dL Albumin 4.2 3.2-4.8 g/dL Lipase 20 12-53 U/L Urine Color Yellow Yellow Urine Clarity Turbid H Clear Urine pH 5.5 5.0-9.0 Urine Specific [place] 1.024 1.001-1.035 Urine Protein Trace H Negative Urine Ketones Trace Negative Urine Blood Negative Negative /uL Urine Nitrite Negative Negative Urine Bilirubin Negative Negative Urine Urobilinogen 3 H Negative mg/dL Urine Leukocyte Esterase 2+ Negative /uL Urine RBC 1 0 - 4 /hpf Urine WBC 9 0 - 5 /hpf Urine Squamous Epithelial Cells Mod <5 /hpf Urine Bacteria Few H None Seen /hpf Urine Glucose Normal Normal mg/dL Blood Gas Specimen Type Arterial Blood Gas Sample Site Left radial Blood Gas Patient Temperature 37.0 Arterial Blood Date Drawn [id number] Arterial Blood pH 7.476 H 7.350-7.450 Arterial Blood Partial Pressure CO2 30.2 L 32.0-45.0 mmHg Arterial Blood Partial Pressure O2 48.4 *L 83.0-108.0 mmHg Arterial Blood HCO3 21.8 21.0-28.0 mmol/L Arterial Blood Oxygen Saturation 86.6 L 94.0-98.0 % Arterial Blood Base Excess -0.5 -2.0-3.0 mmol/L Arterial Blood Oxyhemoglobin 84.4 L 94.0-98.0 % Arterial Blood Carboxyhemoglobin 2.3 H 0.5-1.5 % Arterial Blood Methemoglobin 0.2 0.0-1.5 % Cy Test Modified Blood Gas Total Hemoglobin 16.80 H 12.0-16.0 g/dL Blood Gas Set Respiration Rate 12.0 Blood Gas Modality Mask - bipap FiO2 % 100.0 Blood Gas EPAP 5 Blood Gas IPAP 20 Blood Gas Critical Value Read Back yes Blood Gas Notified Whom lakshmi Napier md Blood Gas Notified Time [id number] Blood Gas Notified By Assessment/Plan Assessment/Plan Admit ICU Acute Respiratory Failure requiring mechanical ventilation Morbidly obese BMI = 40 PE history Sepsis triggered PNA being covered IV abx Vanco Cefepime Lactic acid initially elevated Pulmonary Consulted for vent management intubated sedated veserd propofol monitor for caute drops in BP CCT 42 mins Plan discussed with: Patient My Orders Orders - LAURA DIA MD Procedure Category Date Status Time *Consult CONS 09/02/24 Transmitted / 18:17 Vancomycin Per PHA 09/02/24 Logged Pharmacy 18:30 Cefepime 1gm/ 50ml PHA 09/02/24 In Process (Maxipime 1gm/50ml) 02:00 Albuterol Medneb PHA 09/02/24 In Process (Ventolin Medneb) 18:30 Ipratropium Medneb PHA 09/02/24 In Process (Atrovent Medneb) 18:30 Inline Breath RT 09/02/24 Logged Treatment 18:17 Admit ADMIT 09/02/24 Transmitted 18:47 Notify Md Of Changes SIMRAN 09/02/24 Transmitted From Base 18:47 Transfer Specialist For SIMRAN 09/02/24 Transmitted 24 Hours 18:47 Rhythm Strips Once SIMRAN 09/02/24 Transmitted Every Shift 18:47 Oxygen By Nasal RT 09/02/24 Transmitted Cannula 18:47 Date of Service: Sep 02, 2024 Billing Provider: LAURA DAI MD Common Visit Codes: [id number] CARE 30-74 MIN LAURA DAI MD Sep 02, 2024 19:04
--- NOTE | 2024-09-02 19:12 | ECG ---
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
[2024-09-02] MEDS: AZITHROMYCIN 500MG/ 250ML 250 ML IV ONE (19:25)
[2024-09-02 19:30] VITALS: PULSE 99; RESP 20; O2SAT 94
[2024-09-02 19:37] VITALS: BP 100/46; PULSE 143; RESP 20; O2SAT 95
[2024-09-02 19:41] LABS: COVID19 ANTIGEN SOFIA FIA NEGATIVE (NEGATIVE)
[2024-09-02 19:41] LABS: Rapid Influenza A Negative (Negative); Rapid Influenza B Negative (Negative)
[2024-09-02] MEDS: NOREPINEPHRINE 8 MG/250ML KIT 250 ML IV SCH (19:45)
[2024-09-02] MEDS: NOREPINEPHRINE 8 MG/250ML KIT 250 ML IV ONE (19:47)
[2024-09-02] MEDS: IPRATROPIUM BROM 0.5 MG/2.5ML INH SOL NEB PRN (20:04)
[2024-09-02 20:05] VITALS: BP 82/43; PULSE 95; RESP 22; O2SAT 95
[2024-09-02] MEDS: ALBUTEROL SULF 2.5 MG/0.5ML(0.5%) NEB SOLN NEB PRN (20:05)
[2024-09-02] MEDS: CEFEPIME 2GM/50ML NS 50 ML IV ONE (21:26)
[2024-09-02 21:40] VITALS: BP 93/59; PULSE 94; RESP 33; O2SAT 94
[2024-09-02 23:55] VITALS: BP 100/52; PULSE 96; RESP 33; O2SAT 95
[2024-09-03] VITALS (32 sets, daily range): BP systolic 81–126; BP diastolic 45–76; PULSE 93–116; RESP 20–22; TEMP 99.7–100.6; O2SAT 92–99
[2024-09-03] MEDS: VANCOMYCIN 1.5GM/300ML 300 ML IV ONE (05:11)
[2024-09-03] MEDS: VANCOMYCIN 1.5 GM in D5W 5% 250 ML IV SCH (05:43)
[2024-09-03] MEDS: ACETAMINOPHEN 650 mg PER 20.3 mL UD GT PRN (10:21)
[2024-09-03] MEDS: NOREPINEPHRINE BITARTRATE 32 MG in SODIUM CHL 0.9% 218 ML IV SCH (12:30)
--- NOTE | 2024-09-03 12:34 | DVHINCON2 ---
Date Seen: Sep 03, 2024 Referring Physician MD Jeremias Reason for Consultation CHF History of Present Illness This is a 63-year-old female patient who presents to the emergency room with chief complaint worsening shortness or breath. At the time of assessment, the patient is chemically sedated and mechanically ventilated. History obtained from previous medical records and from bedside RN. According to notes, the p ataudrey came in with an SpO2 at 70% on room air and was noted to be in severe respiratory distress in which she was urgently intubated by ER physician. Cardiology has now been consulted for possible CHF. Initial twelve electrocardiogram reveals sinus tachycardia with prolonged QTc interval at 570. Initial troponin level of 18ng/ L with uptrend thereafter. Initial BNP level of 249.65pg/mL. Significant past medical history includes obesity, umbilical hernia, and multiple abdominal surgeries. There is no family at bedside at time of assessment. Past Medical History Denies the use of tobacco, alcohol or illicit drugs. Past Surgical History Multiple abdominal surgeries Family History: Diabetes mellitus G8 BROTHER FH: hypertension G8 FATHER Family History Unable to obtain family history at this time Social History Unable to obtain social history at this time Allergies: Coded Allergies: Hydrocodone (Verified Allergy, Mild, 09/02/24) Itchy Home Meds Active Scripts Tamsulosin Hcl (Flomax) 0.4 Mg Cap, 1 CAP PO HS, #10 CAP 11 Refills Prov:RADHA DE LA TORRE MD 02/25/24 Levofloxacin Hemihydrate (LEVAQUIN 500 MG) 500 Mg Tab, 1 TAB PO DAILY, #7 TAB Prov:RADHA DE LA TORRE MD 02/25/24 Home Meds Unable to verify home medications at this time Current Medications Current Medications Medications (Trade) Dose Ordered Sig/[place] Route PRN Reason Start Time Stop Time Status Last Admin Propofol 100 ml @ 3.54 mls/hr Q24H IV 09/02/24 15:45 09/02/24 17:24 DC Midazolam HCl 50 ml @ 1 mls/hr Q24H IV 09/02/24 15:45 09/02/24 17:00 Fentanyl Citrate 250 ml @ 2.5 mls/hr Q24H IV 09/02/24 15:45 09/02/24 22:10 Propofol 100 ml @ 3.54 mls/hr Q24H IV 09/02/24 15:45 09/03/24 10:05 Acetaminophen (Ofirmev) 1,000 mg ONCE STAT IV 09/02/24 16:35 09/02/24 16:36 DC 09/02/24 16:53 Vancomycin HCl 0 ml @ 0 mls/hr UD IV 09/02/24 18:30 Albuterol (Ventolin Medneb) 2.5 mg Q4HWA PRN NEB SHORTNESS OF BREATH 09/02/24 18:30 09/03/24 09:26 Ipratropium [place] (Atrovent Medneb) 0.5 mg Q4HWA PRN NEB SHORTNESS OF BREATH 09/02/24 18:30 09/03/24 09:26 Norepinephrine Bitartrate 250 ml @ 3.75 mls/hr Q24H IV 09/02/24 19:45 09/03/24 12:25 DC 09/02/24 19:45 Vancomycin HCl 1.5 gm/Dextrose 250 ml @ 166.667 mls/hr Q12H IV 09/03/24 06:00 09/03/24 05:43 Acetaminophen (Tylenol Solution Oral) 650 mg Q4HP PRN GT TEMP GREATER THAN 100.4 09/03/24 10:00 09/03/24 10:21 Norepinephrine Bitartrate 32 mg/ Sodium Chloride 250 ml @ 0.938 mls/ hr Q24H IV 09/03/24 12:30 Review of Systems Constitutional: No symptom reported Ears, Nose, & Throat: No symptom reported Eyes: No symptom reported Neurological: No symptoms reported Pulmonary/Respiratory: Shortness of breath Cardiovascular: No symptom reported Gastrointestinal: No symptom reported Genitourinary: No symptom reported Musculoskeletal: No symptom reported Skin: No symptom reported Psychiatric: No symptom reported Endocrine: No symptom reported Hematologic/Lymphatic: No symptom reported Vital Signs Vital Signs Date Time Temp Pulse Resp B/P (MAP) Pulse Ox O2 Delivery O2 Flow Rate FiO2 09/03/24 12:18 101.7 09/03/24 11:17 115 20 92 Mechanical Ventilator+ 10 100 100 09/03/24 11:07 104/52 (69) Physical Exam General Appearance: Calm, relaxed. Morbidly obese Pulmonary/Respiratory: Mechanically ventilated, diminished bilateral lower lobe sounds Cardiovascular/Chest: Regular rate and rhythm. Peripheral Pulses: 2+ Radial (R). 2+ Radial (L). Abdominal Exam: Large, round abdomen. Ankle Exam: Negative ankle edema Lower extremities: Negative lower extremity edema Neuro/Mental Status: Chemically sedated Thoughts/Psych: Deferred Appearance: No acute distress. Skin Exam: Multiple scars to abdomen. Two open areas on abdomen with oozing wounds. Bilateral lower extremities cool to touch. Labs/Diagnostic Data Labs Test 09/03/24 06:10 09/02/24 19:17 09/02/24 18:49 09/02/24 17:44 Range/Units Blood Gas Specimen Type Arterial Blood Gas Sample Site Right radial Blood Gas Patient Temperature 37.0 Arterial Blood Date Drawn [id number] Arterial Blood pH 7.201 *L 7.350-7.450 Arterial Blood Partial Pressure CO2 53.8 H 32.0-45.0 mmHg Arterial Blood Partial Pressure O2 78.3 L 83.0-108.0 mmHg Arterial Blood HCO3 20.6 L 21.0-28.0 mmol/L Arterial Blood Oxygen Saturation 93.6 L 94.0-98.0 % Arterial Blood Base Excess -8.0 L -2.0-3.0 mmol/L Arterial Blood Oxyhemoglobin 92.5 L 94.0-98.0 % Arterial Blood Carboxyhemoglobin 1.0 0.5-1.5 % Arterial Blood Methemoglobin 0.2 0.0-1.5 % Cy Test Modified Blood Gas Total Hemoglobin 16.50 H 12.0-16.0 g/dL Blood Gas Set Respiration Rate 20.0 Blood Gas Modality Vent - p/c FiO2 % 100.0 Blood Gas Inspiratory Pressure 18.0 Blood Gas PEEP or CPAP 12.0 Blood Gas Critical Value Read Back Yes Blood Gas Notified Whom Blood Gas Notified Time [id number] Blood Gas Notified By Ryan stewart Troponin I High Sensitivity 72 *H </=34 ng/L SARS-CoV-2 Antigen (Rapid) Negative NEGATIVE Lactic Acid Level 2.6 *H 0.4-2.0 mmol/L Test 09/02/24 16:28 09/02/24 16:00 09/02/24 15:29 09/02/24 15:13 Range/Units White Blood Count 32.9 *H 4.4-10.8 10^3/uL Red Blood Count 5.90 H 4.0-5.20 10^6/uL Hemoglobin 17.6 H 12.2-16.2 g/dL Hematocrit 53.2 H 36.0-46.0 % Mean Corpuscular Volume 90.2 80.0-100.0 fL Mean Corpuscular Hemoglobin 29.9 28.0-32.0 pg Mean Corpuscular Hemoglobin Concent 33.1 32.0-36.0 g/dL Red Cell Distribution Width 13.8 11.8-14.3 % Platelet Count 316 140-450 10^3/uL Mean Platelet Volume 8.0 6.9-10.8 fL Neutrophils (%) (Auto) 37.0-80.0 % Lymphocytes (%) (Auto) 10.0-50.0 % Monocytes (%) (Auto) 0.0-12.0 % Basophils (%) (Auto) 0.0-2.0 % Neutrophils # (Auto) 1.6-8.6 10 ^3/uL Lymphocytes # (Auto) 0.4-5.4 10 ^3/uL Monocytes # (Auto) 0-1.3 10 ^3/uL Differential Total Cells Counted 100.0 100 Neutrophils % (Manual) 57 37.0-80.0 Band Neutrophils % (Manual) 28 Lymphocytes % (Manual) 5 L 10.0-50.0 Monocytes % (Manual) 10 0-12 Eosinophils % (Manual) 0 0-7 Basophils % (Manual) 0 0.0-2.0 Metamyelocytes % (manual) 0 Myelocytes % (Manual) 0 Promyelocytes % (Manual) 0 Blast Cells % (Manual) 0 Reactive Lymphocytes 0 Platelet Estimate Adequate Toy Cells Moderate Sodium Level 135 L 136-145 mmol/L Potassium Level 4.1 3.5-5.1 mmol/L Chloride Level 103 98-107 mmol/L Carbon Dioxide Level 20 20-31 mmol/L Anion Gap 12 5-15 Blood Urea Nitrogen 15 9-23 mg/dL Creatinine 0.96 0.550-1.02 mg/dL Glomerular Filtration Rate Calc 67 >90 mL/min BUN/Creatinine Ratio 15.6 10.0-20.0 Serum Glucose 135 H 74-106 mg/dL Calcium Level 10.2 8.7-10.4 mg/dL Total Bilirubin 2.6 H 0.2-1.0 mg/dL Aspartate Amino Transferase (AST) 49 H 13-40 U/L Alanine Aminotransferase (ALT) 32 7-40 U/L Alkaline Phosphatase 164 H 46-116 U/L B-Type Natriuretic Peptide 249.65 0-100 pg/mL Total Protein 6.7 5.7-8.2 g/dL Albumin 4.2 3.2-4.8 g/dL Lipase 20 12-53 U/L Urine Color Yellow Yellow Urine Clarity Turbid H Clear Urine pH 5.5 5.0-9.0 Urine Specific [place] 1.024 1.001-1.035 Urine Protein Trace H Negative Urine Ketones Trace Negative Urine Blood Negative Negative /uL Urine Nitrite Negative Negative Urine Bilirubin Negative Negative Urine Urobilinogen 3 H Negative mg/dL Urine Leukocyte Esterase 2+ Negative /uL Urine RBC 1 0 - 4 /hpf Urine WBC 9 0 - 5 /hpf Urine Squamous Epithelial Cells Mod <5 /hpf Urine Bacteria Few H None Seen /hpf Urine Glucose Normal Normal mg/dL Influenza Type A Antigen Negative Negative Influenza Type B Antigen Negative Negative Blood Gas EPAP 5 Blood Gas IPAP 20 Assessment Septic shock Acute on chronic respiratory failure NSTEMI type II secondary to above Rule out structural heart disease Prolonged QT interval Morbid obesity, Class 3 Plan/Recommendation We will continue with the following plan/recommendations (Dr. Bowman): We will proceed with obtaining a transthoracic echocardiogram to evaluate cardiac function. We will recommend to continue vasopressors for hemodynamic support at this time and we will change the strength to Quad concentration to prevent fluid overload. We will also recommend to avoid medications that prolong QT interval as patient already has a prolonged QT interval and is at risk for going into torsades de pointes. Repeat EKG in AM. Pending abdomen and pelvis CT results. In the meantime, continue with antibiotics per primary care team. Thank you for allowing us to care for this patient. Please call with any questions or concerns. Critical care time spent: 43 minutes This medical document was created using an electronic medical record system with voice recognition software and computerized dictation system. Although this do cument has been carefully reviewed, there might still be some phonetic and typographical errors. Occasional wrong-word or ``sound-alike substitutions may have occurred due to the inherent limitations of voice recognition software. These areas are purely typographical due to imperfections of the software programs and do not reflect any compromise in the patient's medical care. Please read the chart carefully and recognize, using context, where these substitutions have occurred. Plan discussed with: Other (Bedside RN) Date of Service: Sep 03, 2024 Billing Provider: RAMA ELLIS Cardiology Common Codes: [id number] INP/OBS CARE (High) RAMA ELLIS Sep 03, 2024 12:34
[2024-09-03 12:58] LABS: Hematocrit 49.3 % (36.0-46.0); Hemoglobin 16.4 g/dL (12.2-16.2); Mean Corpuscular Hemoglobin 29.8 pg (28.0-32.0); Mean Corpuscular Hgb Conc. 33.2 g/dL (32.0-36.0); Mean Corpuscular Volume 89.8 fL (80.0-100.0); Platelet Count (auto) 332 10^3/uL (140-450); Red Blood Cells 5.49 10^6/uL (4.0-5.20); Red Cell Distribution Width 14.3 % (11.8-14.3)
[2024-09-03 13:00] LABS: White Blood Cell 36.8 10^3/uL (4.4-10.8)
[2024-09-03 13:02] LABS: Basophils % (manual) 0 (0.0-2.0); Blast Cells 0; Eosinophils % (manual) 0 (0-7); Metamyelocytes % 0; Myelocytes % 0; Promyelocytes % 0; Reactive Lymphocytes 0
[2024-09-03 13:03] LABS: INR 1.41 (0.9-1.15); Prothrombin Time 14.6 sec (9.3-11.8)
[2024-09-03 13:18] LABS: Alanine Aminotransferase 40 U/L (7-40); Albumin 4.1 g/dL (3.2-4.8); Alkaline Phosphatase 152 U/L (46-116); Anion Gap 11 (5-15); Aspartate Aminotransferase 70 U/L (13-40); BUN/Creatinine Ratio 9.4 (10.0-20.0); Calcium 9.3 mg/dL (8.7-10.4); Carbon Dioxide 24 mmol/L (20-31); Chloride 101 mmol/L (98-107); Glucose 122 mg/dL (74-106); Potassium 4.7 mmol/L (3.5-5.1); Sodium 136 mmol/L (136-145)
[2024-09-03 13:19] LABS: Bilirubin, Total 0.9 mg/dL (0.2-1.0)
[2024-09-03 13:27] LABS: Blood Urea Nitrogen 31 mg/dL (9-23)
[2024-09-03 14:20] LABS: Band Neutrophils % (manual) 8; Lymphocytes % (manual) 6 (10.0-50.0); Monocytes % (manual) 5 (0-12)
[2024-09-03 14:21] LABS: Large Platelets FEW; Platelet Estimate Adequate
--- NOTE | 2024-09-03 14:59 | DVH ---
Exam: CT CT AB PEL WO CON-NO ORAL OR IV History: R/O OBSTRUCTION/BLEED Comparison Study: CT CT AB PEL WO CON-NO ORAL OR IV on DOS: 02/21/24 Technique: Multidetector spiral CT of the abdomen and pelvis was performed from lung bases to pubic symphysis. Imaging was performed without IV contrast. Axial, coronal and sagittal multiplanar reform ats were obtained from the axial data set by the technologist. Radiation dose : Abdomen/Pelvis: CTDIvol 27 mGy, DLP 1350.61 mGy*cm. Findings: Evaluation of solid organs is limited due to lack of intravenous contrast use. Lung Bases: Bilateral pleural effusions [id number] as well as bibasilar atelectasis and consolidation. Liver: The liver is normal in size. No focal lesions. Gallbladder and biliary Tree: Unremarkable Spleen: Unremarkable Pancreas: The pancreas is grossly normal in appearance. Adrenal Glands: Unremarkable Kidneys: Punctate left renal calculus. No hydronephrosis. Bladder: Bladder is decompressed with a Vasquez catheter and cannot be adequately assessed. Bowel: There is a nasogastric tube in the stomach. There is mild dilation of proximal jejunal loops. The appendix is not visualized; however, no secondary findings of acute appendicitis identified. Ascites: Absent Lymphadenopathy: No mesenteric, retroperitoneal or periportal lymphadenopathy. Abdominal wall and Mesentery: Multiple anterior abdominal wall hernias containing fat and bowel. Vasculature: The visualized abdominal aorta is normal in size and caliber. Evaluation of abdominal a nd pelvic vessels is limited due to lack of intravenous contrast. Pelvic Organs: Unremarkable Musculoskeletal: Grade 1 anterolisthesis of L4 on L5. IMPRESSION: 1. Multiple ventral wall hernias containing fat and bowel. Mild dilation of proximal jejunal loops wi th a nasogastric tube in the stomach. Jejunal loops course into a hernia in the left anterior abdomin al wall with an area of postsurgical changes. A decompressed bowel obstruction is suspected. Clinical correlation and continued follow-up is recommended. Radiation optimization: All CT scans at this facility use at least one of these dose optimization rashawn hniques: Automated exposure control mA and/or kV adjustment per patient size (includes targeted exams where dose is matched to clinical indication) or iterative reconstruction. HS:Y
[2024-09-03] MEDS: VASOPRESSIN 20 UNITS in SODIUM CHL 0.9% 99 ML IV SCH (15:30)
--- NOTE | 2024-09-03 16:10 | DVHPN2 ---
Subjective 63 year old female with h/o multiple abd surgeries last one 1 year ago, came with SOB, became increasingly hypoxic, needed intubation Currently on Levephed drip for septic shock, added vasopressin CXR: Pulmonary edema ABD CT: Possible bowel obstruction WBCs: 36 Cr: 3.3 Low urine output Changes from previous H/P or p: Changes Eyes: No Pain, No Vision change, No Conjunctivae inflammation, No Eyelid inflammation, No Other, No Redness Cardiovascular: No Chest Pain, No Palpitations, No Orthopnea, No Paroxysmal Noc. Dyspnea, No Edema, No Lt Headedness, No Other Respiratory: No Cough, No Dry; Shortness of breath, SOB with excertion, W heezing; No Hemoptysis, No Pleuritic Pain, No Sputum, No Other Gastrointestinal: No Nausea, No Vomiting, No Abdominal Pain, No Diarrhea, No Constipation, No Melena, No Hematochezia, No Other Genitourinary: No Dysuria, No Frequency, No Incontinence, No Hematuria, No Retention, No Other Musculoskeletal: No other, No neck pain, No shoulder pain, No arm pain, No back pain, No hand pain, No leg pain, No foot pain Skin: No Rash, No Lesions, No Jaundice, No Bruising, No Other Objective Vitals Vital Signs Date Time Temp Pulse Resp B/P (MAP) Pulse Ox O2 Delivery O2 Flow Rate FiO2 09/03/24 15:04 100 20 81/50 (60) 93 100 09/03/24 14:00 101.3 101.3 09/03/24 11:17 Mechanical Ventilator+ 10 Intake/Output Intake and Output 09/03/24 07:00 Intake Total 815.00 ml Balance 815.00 ml Intake IV Total 815.00 ml General Appearance: Other (intubated and sedated) Lungs: Other (B rhonchi) Abdomen: Soft Extremities: No edema Medications Current Medications Medications Dose Ordered Sig/Acacia Route Start Time Stop Time Status Last Admin Dose Admin Midazolam HCl 50 ml @ 1 mls/hr Q24H IV 09/02/24 15:45 09/02/24 17:00 10 MLS/HR Fentanyl Citrate 250 ml @ 2.5 mls/hr Q24H IV 09/02/24 15:45 09/02/24 22:10 2.5 MLS/HR Propofol 100 ml @ 3.54 mls/hr Q24H IV 09/02/24 15:45 09/03/24 10:05 3.54 MLS/HR Vancomycin HCl 0 ml @ 0 mls/hr UD IV 09/02/24 18:30 Cefepime HCl 50 ml @ 12.5 mls/hr Q8H IV 09/02/24 02:00 09/03/24 10:00 12.5 MLS/HR Albuterol 2.5 mg Q4HWA PRN NEB 09/02/24 18:30 09/03/24 13:23 2.5 MG Ipratropium [place] 0.5 mg Q4HWA PRN NEB 09/02/24 18:30 09/03/24 13:23 0.5 MG Acetaminophen 650 mg Q4HP PRN GT 09/03/24 10:00 09/03/24 10:21 650 MG Norepinephrine Bitartrate 32 mg/ Sodium Chloride 250 ml @ 0.938 mls/ hr Q24H IV 09/03/24 12:30 09/03/24 12:30 0.938 MLS/HR Methylprednisolone Sodium Succinate 100 mg Q6HP IV 09/03/24 15:30 UNV Vasopressin 20 units/Sodium Chloride 100 ml @ 9 mls/hr Q11H7M IV 09/03/24 15:30 UNV Laboratory Results Laboratory Tests 09/03/24 12:36 Chemistry Test 09/02/24 16:28 09/03/24 12:36 Albumin 4.2 g/dL (3.2-4.8) 4.1 g/dL (3.2-4.8) Calcium Level 10.2 mg/dL (8.7-10.4) 9.3 mg/dL (8.7-10.4) Total Protein 6.7 g/dL (5.7-8.2) 7.0 g/dL (5.7-8.2) Magnesium Level 2.0 mg/dL (1.6-2.6) Coagulation Test 09/03/24 12:36 Prothrombin Time 14.6 sec (9.3-11.8) H Prothrombin Time INR 1.41 (0.9-1.15) H Lipid panel Test 09/02/24 16:28 Lipase 20 U/L (12-53) Cardiac Markers Test 09/02/24 16:28 B-Type Natriuretic Peptide 249.65 pg/mL (0-100) LFT Test 09/02/24 16:28 09/03/24 12:36 Alanine Aminotransferase (ALT) 32 U/L (7-40) 40 U/L (7-40) Alkaline Phosphatase 164 U/L (46-116) H 152 U/L (46-116) H Aspartate Amino Transferase (AST) 49 U/L (13-40) H 70 U/L (13-40) H Total Bilirubin 2.6 mg/dL (0.2-1.0) H 0.9 mg/dL (0.2-1.0) Urinalysis Test 09/02/24 16:00 Urine Color Yellow (Yellow) Urine Clarity Turbid (Clear) H Urine pH 5.5 (5.0-9.0) Urine Specific [place] 1.024 (1.001-1.035) Urine Protein Trace (Negative) H Urine Ketones Trace (Negative) Urine Blood Negative /uL (Negative) Urine Nitrite Negative (Negative) Urine Bilirubin Negative (Negative) Urine Urobilinogen 3 mg/dL (Negative) H Urine Leukocyte Esterase 2+ /uL (Negative) Urine RBC 1 /hpf (0 - 4) Urine WBC 9 /hpf (0 - 5) Urine Squamous Epithelial Cells Mod /hpf (<5) Urine Bacteria Few /hpf (None Seen) H Urine Glucose Normal mg/dL (Normal) Blood Gas Results Test 09/03/24 06:10 Arterial Blood pH 7.201 (7.350-7.450) FiO2 % 100.0 Assessment/Plan Assessment/Plan Sepsis with septic shock FEDE Leukocytosis Acute hypoxic respiratory failure Pulmonary edema Rule out CHF Obesity Abdominal wall hernia Rule out Bowel Obstruction UTI HTN h/o Hernia Sx x4, last one [address] Li h/o kidney stones Tobacco dependence PLAN: Mechanical ventilation Vasopressors: Levophed, add Vasopressin Broad spectrum antibiotics: Meropenem and Vanco IV fluids Echo to rule out CHF Cardiology consult Nephrology consult Surgical consult ID consult Protonix Sedation as needed Full code Discussed with her son over the phone Advanced directives discussed with her son x 20 minutes Plan discussed with: Patient My Orders Orders - DAO SORIANO MD Procedure Category Date Status Time Urine Bacterial MOISES 09/03/24 In Process Culture 11:42 Communication Order ORDERS 09/03/24 Transmitted 14:10 Methylprednisolone PHA 11/22/24 Logged Sod Succ (Solu Medrol 15:30 Sodium Chl 0.9% PHA 09/03/24 Logged (So... W/Vasopressin 15:30 * Surgical Consult CONS 09/03/24 Transmitted Meropenem 500mg Ivpb PHA 09/03/24 Logged (Merrem 500mg/Ns) 15:45 Meropenem 500mg PHA 09/03/24 Transmitted Q12h([id number] 22:00 *Dr. [facility] CONS 09/03/24 Transmitted -[place] 15:38 * Infectious Gm- CONS 09/03/24 Verified [place] 15:39 Date of Service: Sep 03, 2024 Billing Provider: DAO SORIANO MD Common Visit Codes: 71075-[id number] INP/OBS CARE(HIGH) Secondary Visit Codes: 07095-[id number] CARE PLAN 30 MINUTES DAO SORIANO MD Sep 03, 2024 16:10
[2024-09-03] MEDS: methylPREDNISolone SOD SUCC 125 MG/2 ML VL IV SCH (16:11)
[2024-09-03] MEDS: MEROPENEM 500MG IVPB 50 ML IV ONE (16:11)
[2024-09-03] MEDS: SODIUM CHLORIDE 0.9% 1,000 ML IV SCH (16:12)
[2024-09-03] MEDS: PANTOPRAZOLE 40 MG/10 ML VIAL INJ IV ONE (16:13)
--- NOTE | 2024-09-03 20:39 | DVHPN2 ---
Progress Note - Dictate Date Seen: Sep 03, 2024 Medical Necessity Reason Pt with a Central, PICC or Fol: Yes The following are medically ne: Betancourt Catheter Reason for betancourt catheter: Strict I&O Subjective Patient seen and examined at bedside. Sedated, intubated on mechanical ventilator. Overnight events reviewed. vital signs Vital Sign Date Time Temp Pulse Resp B/P (MAP) Pulse Ox O2 Delivery O2 Flow Rate FiO2 09/03/24 19:00 136/73 09/03/24 18:40 102 20 96 100 09/03/24 18:00 100.6 100.6 09/03/24 11:17 Mechanical Ventilator+ 10 Total Intake and Output 09/02/24 09/02/24 09/03/24 15:00 23:00 07:00 Intake Total 462.5 ml 352.50 ml Balance 462.5 ml 352.50 ml medications Current Medications Medications Dose Ordered Sig/Acacia Route Start Time Stop Time Status Last Admin Dose Admin Midazolam HCl 50 ml @ 1 mls/hr Q24H IV 09/02/24 15:45 09/03/24 20:09 15 MLS/HR Fentanyl Citrate 250 ml @ 2.5 mls/hr Q24H IV 09/02/24 15:45 09/02/24 22:10 2.5 MLS/HR Propofol 100 ml @ 3.54 mls/hr Q24H IV 09/02/24 15:45 09/03/24 10:05 3.54 MLS/HR Vancomycin HCl 0 ml @ 0 mls/hr UD IV 09/02/24 18:30 Albuterol 2.5 mg Q4HWA PRN NEB 09/02/24 18:30 09/03/24 13:23 2.5 MG Ipratropium [place] 0.5 mg Q4HWA PRN NEB 09/02/24 18:30 09/03/24 13:23 0.5 MG Acetaminophen 650 mg Q4HP PRN GT 09/03/24 10:00 09/03/24 10:21 650 MG Norepinephrine Bitartrate 32 mg/ Sodium Chloride 250 ml @ 0.938 mls/ hr Q24H IV 09/03/24 12:30 09/03/24 12:30 0.938 MLS/HR Methylprednisolone Sodium Succinate 100 mg Q6HP IV 09/03/24 15:30 09/03/24 16:11 100 MG Vasopressin 20 units/Sodium Chloride 100 ml @ 9 mls/hr Q11H7M IV 09/03/24 15:30 Meropenem 50 ml @ 17 mls/hr Q12HR IV 09/03/24 22:00 Pantoprazole Sodium 40 mg DAILY IV 09/04/24 10:00 Sodium Chloride 1,000 ml @ 100 mls/hr Q10H IV 09/03/24 15:45 09/03/24 16:12 100 MLS/HR objective Gen.: Patient lying in bed in medical ICU. Sedated, intubated on mechanical ventilator. Head: Normocephalic, atraumatic. Eyes: PERRLA. Ears: Normal external anatomy. Throat: Endotracheal tube and orogastric tube in place. Neck: Supple, trachea midline. Chest: Transmitted breath sounds bilaterally. Decreased air entry bilaterally. No wheezing. Bibasilar crackles. Cardio vascular: Positive S1, positive S2. Regular rate and rhythm. Abdomen: Positive bowel sounds in all 4 quadrants. Soft, nontender, nondistended. : Betancourt in place. Normal external genitalia. Rectal: Deferred Skin: Warm, dry. Intact. Extremities: 2+ radial pulses bilaterally. No lower extremity edema. Neuro: Sedated. laboratory and microbiology Laboratory Tests 09/03/24 12:36 Test 09/03/24 12:36 Range/Units Serum Glucose 122 H 74-106 mg/dL Assessment/Plan Impression: Acute on chronic hypoxic respiratory failure On mechanical ventilator Pulmonary edema Pleural effusion, left Atelectasis Leukocytosis Lactic acidosis Morbid obesity, BMI 40 Events: Remains on vent support On pressure control with a respiratory rate of 20, inspiratory pressure of 18, I-time of 0.9 seconds, peep of 12, FiO2 at 100%. Patient desaturates with movement. ABG notable for acidemia d/t CO2 retention. Sedated on Propofol, Versed, Fentanyl. On pressors for hemodynamic support Levophed 30 mcg/min Titrate to keep mean arterial pressure greater than 65 mmHg. Continue antibiotics - meropenem. Labs and imaging reviewed. Rest of plan as noted below. Plan: s/p intubation on mechanical ventilator CXR image and report reviewed. Devices in place. Pulmonary edema. Small left pleural effusion. Atelectasis. ABG reviewed. Alkalemia due to respiratory alkalosis, hypoxemia PaO2 40.4 mmHg On pressure control with a respiratory rate of 20, inspiratory pressure of 18, I-time of 0.9 seconds, peep of 12, FiO2 at 100%. Titrate FIO2 to keep O2 saturation above 92%. VAP bundle Daily ABG and CXR while intubated. Sedate for ventilatory synchrony Bronchodilators On pressors for hemodynamic support. Titrate to keep MAP above 65 mmHg/SBP above 90 mmHg. Continue antibiotics. F/u cultures. Elevated WBC, 32.9 Monitor renal function Monitor ins/outs. Monitor electrolytes. Supplement as necessary. Monitor lactic acid On IVF Nutritional support. Accucheks, ISS. GI/DVT prophylaxis. Condition: Critical Prognosis: Poor given multiple comorbidities. Rest of plan per hospitalist and other consultants. A total of 35 minutes of critical care time was spent reviewing the patient record, examining the patient, making a diagnostic and therapeutic plan, discussing this plan with the medical personnel, following up on diagnostic studies and following the patient for clinical stability excluding any and all procedures. At least 50% of this time was spent in direct, [id number] contact. Thank you Dr. Banda for allowing me to participate in this patient's care. Further recommendations will depend on patient's clinical course. Please do not hesitate to contact me if you have any questions or concerns. This medical document was created using an electronic medical record system with [employer] dictation system. Although this document has been carefully reviewed, there may still be some phonetic and typographical errors. These areas are purely typographical due to imperfections of the software programs, and do not reflect any compromise in the patient's medical care. Plan discussed with: Other (DEIDRE Wilson) Critical Care Time(min): 35 SHAI SINGH MD Sep 03, 2024 20:39
[2024-09-03] MEDS: MEROPENEM 500MG IVPB 50 ML IV SCH (22:09)
--- NOTE | 2024-09-03 23:01 | DVHINCON2 ---
Date of service: Sep 03, 2024 Referring Physician MD Jeremias Reason for Consultation CHF History of Present Illness This is a 63-year-old female with a PMH of obesity, umbilical hernia, and multiple abdominal surgeries who presents to the ED with complaint of worsening shortness or breath. At the time of assessment, the patient is chemically sedated and mechanically ventilated. Patients history was obtained from previous medical records and bedside RN. No family at bedside. In the ED, the patient had an SpO2 at 70% on room air and in severe respiratory distress in which she was urgently intubated by ED physician. Cardiology consulted for possible CHF. Initial twelve electrocardiogram reveals sinus tachycardia with prolonged QTc interval at 570. Initial troponin level of 18ng/ L with uptrend thereafter. Initial BNP level of 249.65pg/mL. Chest x-ray shows pulmonary edema. Family History: Diabetes mellitus G8 BROTHER FH: hypertension G8 FATHER Allergies: Coded Allergies: Hydrocodone (Verified Allergy, Mild, 09/02/24) Itchy Home Meds Active Scripts Tamsulosin Hcl (Flomax) 0.4 Mg Cap, 1 CAP PO HS, #10 CAP 11 Refills Prov:RADHA DE LA TORRE MD 02/25/24 Levofloxacin Hemihydrate (LEVAQUIN 500 MG) 500 Mg Tab, 1 TAB PO DAILY, #7 TAB Prov:RADHA DE LA TORRE MD 02/25/24 Current Medications Current Medications Medications (Trade) Dose Ordered Sig/[place] Route PRN Reason Start Time Stop Time Status Last Admin Propofol 100 ml @ 3.54 mls/hr Q24H IV 09/02/24 15:45 09/02/24 17:24 DC Midazolam HCl 50 ml @ 1 mls/hr Q24H IV 09/02/24 15:45 09/02/24 17:00 Fentanyl Citrate 250 ml @ 2.5 mls/hr Q24H IV 09/02/24 15:45 09/02/24 22:10 Propofol 100 ml @ 3.54 mls/hr Q24H IV 09/02/24 15:45 09/03/24 10:05 Acetaminophen (Ofirmev) 1,000 mg ONCE STAT IV 09/02/24 16:35 09/02/24 16:36 DC 09/02/24 16:53 Vancomycin HCl 0 ml @ 0 mls/hr UD IV 09/02/24 18:30 Albuterol (Ventolin Medneb) 2.5 mg Q4HWA PRN NEB SHORTNESS OF BREATH 09/02/24 18:30 09/03/24 09:26 Ipratropium [place] (Atrovent Medneb) 0.5 mg Q4HWA PRN NEB SHORTNESS OF BREATH 09/02/24 18:30 09/03/24 09:26 Norepinephrine Bitartrate 250 ml @ 3.75 mls/hr Q24H IV 09/02/24 19:45 09/02/24 19:45 Vancomycin HCl 1.5 gm/Dextrose 250 ml @ 166.667 mls/hr Q12H IV 09/03/24 06:00 09/03/24 05:43 Acetaminophen (Tylenol Solution Oral) 650 mg Q4HP PRN GT TEMP GREATER THAN 100.4 09/03/24 10:00 09/03/24 10:21 Review of Systems Unable to review: Intubated on a ventilator Vital Signs Vital Signs Date Time Temp Pulse Resp B/P (MAP) Pulse Ox O2 Delivery O2 Flow Rate FiO2 09/03/24 10:21 100.8 09/03/24 10:15 117/65 09/03/24 09:26 108 20 95 100 09/02/24 20:05 Mechanical Ventilator Physical Exam GENERAL: Intubated on a ventilator. Morbidly obese LUNGS: Decreased breath sounds. CARDIOVASCULAR: Heart sounds are good. ABDOMEN: Soft. Morbid pannus limited physical palpation. SKIN: Multiple scars to abdomen. Two open areas on abdomen with oozing wounds. Labs/Diagnostic Data Labs Test 09/03/24 06:10 09/02/24 19:17 09/02/24 18:49 09/02/24 17:44 Range/Units Blood Gas Specimen Type Arterial Blood Gas Sample Site Right radial Blood Gas Patient Temperature 37.0 Arterial Blood Date Drawn [id number] Arterial Blood pH 7.201 *L 7.350-7.450 Arterial Blood Partial Pressure CO2 53.8 H 32.0-45.0 mmHg Arterial Blood Partial Pressure O2 78.3 L 83.0-108.0 mmHg Arterial Blood HCO3 20.6 L 21.0-28.0 mmol/L Arterial Blood Oxygen Saturation 93.6 L 94.0-98.0 % Arterial Blood Base Excess -8.0 L -2.0-3.0 mmol/L Arterial Blood Oxyhemoglobin 92.5 L 94.0-98.0 % Arterial Blood Carboxyhemoglobin 1.0 0.5-1.5 % Arterial Blood Methemoglobin 0.2 0.0-1.5 % Cy Test Modified Blood Gas Total Hemoglobin 16.50 H 12.0-16.0 g/dL Blood Gas Set Respiration Rate 20.0 Blood Gas Modality Vent - p/c FiO2 % 100.0 Blood Gas Inspiratory Pressure 18.0 Blood Gas PEEP or CPAP 12.0 Blood Gas Critical Value Read Back Yes Blood Gas Notified Whom Blood Gas Notified Time [id number] Blood Gas Notified By Ryan stewart Troponin I High Sensitivity 72 *H </=34 ng/L SARS-CoV-2 Antigen (Rapid) Negative NEGATIVE Lactic Acid Level 2.6 *H 0.4-2.0 mmol/L Test 09/02/24 16:28 09/02/24 16:00 09/02/24 15:29 09/02/24 15:13 Range/Units White Blood Count 32.9 *H 4.4-10.8 10^3/uL Red Blood Count 5.90 H 4.0-5.20 10^6/uL Hemoglobin 17.6 H 12.2-16.2 g/dL Hematocrit 53.2 H 36.0-46.0 % Mean Corpuscular Volume 90.2 80.0-100.0 fL Mean Corpuscular Hemoglobin 29.9 28.0-32.0 pg Mean Corpuscular Hemoglobin Concent 33.1 32.0-36.0 g/dL Red Cell Distribution Width 13.8 11.8-14.3 % Platelet Count 316 140-450 10^3/uL Mean Platelet Volume 8.0 6.9-10.8 fL Neutrophils (%) (Auto) 37.0-80.0 % Lymphocytes (%) (Auto) 10.0-50.0 % Monocytes (%) (Auto) 0.0-12.0 % Basophils (%) (Auto) 0.0-2.0 % Neutrophils # (Auto) 1.6-8.6 10 ^3/uL Lymphocytes # (Auto) 0.4-5.4 10 ^3/uL Monocytes # (Auto) 0-1.3 10 ^3/uL Differential Total Cells Counted 100.0 100 Neutrophils % (Manual) 57 37.0-80.0 Band Neutrophils % (Manual) 28 Lymphocytes % (Manual) 5 L 10.0-50.0 Monocytes % (Manual) 10 0-12 Eosinophils % (Manual) 0 0-7 Basophils % (Manual) 0 0.0-2.0 Metamyelocytes % (manual) 0 Myelocytes % (Manual) 0 Promyelocytes % (Manual) 0 Blast Cells % (Manual) 0 Reactive Lymphocytes 0 Platelet Estimate Adequate Toy Cells Moderate Sodium Level 135 L 136-145 mmol/L Potassium Level 4.1 3.5-5.1 mmol/L Chloride Level 103 98-107 mmol/L Carbon Dioxide Level 20 20-31 mmol/L Anion Gap 12 5-15 Blood Urea Nitrogen 15 9-23 mg/dL Creatinine 0.96 0.550-1.02 mg/dL Glomerular Filtration Rate Calc 67 >90 mL/min BUN/Creatinine Ratio 15.6 10.0-20.0 Serum Glucose 135 H 74-106 mg/dL Calcium Level 10.2 8.7-10.4 mg/dL Total Bilirubin 2.6 H 0.2-1.0 mg/dL Aspartate Amino Transferase (AST) 49 H 13-40 U/L Alanine Aminotransferase (ALT) 32 7-40 U/L Alkaline Phosphatase 164 H 46-116 U/L B-Type Natriuretic Peptide 249.65 0-100 pg/mL Total Protein 6.7 5.7-8.2 g/dL Albumin 4.2 3.2-4.8 g/dL Lipase 20 12-53 U/L Urine Color Yellow Yellow Urine Clarity Turbid H Clear Urine pH 5.5 5.0-9.0 Urine Specific [place] 1.024 1.001-1.035 Urine Protein Trace H Negative Urine Ketones Trace Negative Urine Blood Negative Negative /uL Urine Nitrite Negative Negative Urine Bilirubin Negative Negative Urine Urobilinogen 3 H Negative mg/dL Urine Leukocyte Esterase 2+ Negative /uL Urine RBC 1 0 - 4 /hpf Urine WBC 9 0 - 5 /hpf Urine Squamous Epithelial Cells Mod <5 /hpf Urine Bacteria Few H None Seen /hpf Urine Glucose Normal Normal mg/dL Influenza Type A Antigen Negative Negative Influenza Type B Antigen Negative Negative Blood Gas EPAP 5 Blood Gas IPAP 20 Assessment Septic shock. Acute on chronic respiratory failure. NSTEMI type II secondary to above. Rule out structural heart disease. Prolonged QT interval. Morbid obesity, Class 3. Plan/Recommendation I agree with your ongoing assessment and care of plan. Patient has been seen by Hyacinth Lee on my behalf, her and I discussed the plan with the patient. Transthoracic echocardiogram to evaluate cardiac function. Continue vasopressors for hemodynamic support at this time and we will change the strength to Quad concentration to prevent fluid overload. Avoid medications that prolong QT interval as patient already has a prolonged QT interval and is at risk for going into torsades de pointes. Repeat EKG in AM. Pending abdomen and pelvis CT results. Continue with antibiotics per primary care team. Additional plan as per the hospital course. Critical care time of 90 minutes provided to include time spent evaluation of patient at bedside, when appropriate patient/family education for diagnosis, treatment plan, review of pertinent medical information and discussion of care with specialty providers and PCP. Mechanical ventilator parameters, treatment and adjustments have personally been reviewed by me and treatment plan by pulm onologist has also been reviewed. Plan discussed with: Other RELL STEWART MD Sep 03, 2024 11:09
[2024-09-04] VITALS (105 sets, daily range): BP systolic 109–153; BP diastolic 65–100; PULSE 68–113; RESP 17–21; TEMP 97.7–99.7; O2SAT 89–100
--- NOTE | 2024-09-04 03:59 | DVH ---
Examination: CXRP Clinical Indication: Vent Comparison: None. Technique: Frontal radiograph of the chest was obtained. Findings: Endotracheal tube approximately 2.7 cm from the teetee. Nasogastric tube is identified with distal a spect of the tube in the proximal gastric body of the tip is not visualized. Mild bilateral pleural effusion, left more than right with adjacent lung apices. Subsegmental atelectasis in the right lowe r lobe. Borderline cardiomegaly with mild bilateral hilar congestion. No evidence of pneumothorax. No acute osseous abnormality is seen. Impression: 1. Endotracheal tube approximately 2.7 cm from the teetee. Nasogastric tube is identified with dist al aspect of the tube in the proximal gastric body of the tip is not visualized. 2. Mild bilateral pleural effusion, left more than right with adjacent lung apices. Subsegmental at electasis in the right lower lobe. Borderline cardiomegaly with mild bilateral hilar congestion. Electronically Signed 09/04/2024 03:51 Catie Wild
[2024-09-04 04:59] LABS: Hematocrit 48.5 % (36.0-46.0); Hemoglobin 16.2 g/dL (12.2-16.2); Mean Corpuscular Hemoglobin 29.9 pg (28.0-32.0); Mean Corpuscular Hgb Conc. 33.3 g/dL (32.0-36.0); Mean Corpuscular Volume 89.8 fL (80.0-100.0); Platelet Count (auto) 291 10^3/uL (140-450); Red Cell Distribution Width 13.9 % (11.8-14.3)
[2024-09-04 05:07] LABS: White Blood Cell 30.7 10^3/uL (4.4-10.8)
[2024-09-04 05:08] LABS: Basophils % (manual) 0 (0.0-2.0); Blast Cells 0; Eosinophils % (manual) 0 (0-7); Metamyelocytes % 0; Myelocytes % 0; Promyelocytes % 0; Reactive Lymphocytes 0
[2024-09-04 05:11] LABS: INR 1.23 (0.9-1.15); Partial Thromboplastin Time 30.2 SEC (24.5-34.5); Prothrombin Time 12.8 sec (9.3-11.8)
[2024-09-04 05:13] LABS: Alanine Aminotransferase 64 U/L (7-40); Albumin 3.8 g/dL (3.2-4.8); Alkaline Phosphatase 166 U/L (46-116); Anion Gap 12 (5-15); Aspartate Aminotransferase 200 U/L (13-40); BUN/Creatinine Ratio 9.8 (10.0-20.0); Bilirubin, Total 0.8 mg/dL (0.2-1.0); Calcium 8.8 mg/dL (8.7-10.4); Carbon Dioxide 20 mmol/L (20-31); Chloride 100 mmol/L (98-107); Cholesterol 145 mg/dL (< 200); Glucose 192 mg/dL (74-106); HDL Cholesterol 10 mg/dL (40-59); Magnesium 2.3 mg/dL (1.6-2.6); Potassium 5.4 mmol/L (3.5-5.1); Sodium 132 mmol/L (136-145); Triglycerides 623 mg/dL (< 150)
[2024-09-04 05:14] LABS: Total Protein 6.8 g/dL (5.7-8.2)
[2024-09-04 05:33] LABS: Blood Urea Nitrogen 44 mg/dL (9-23)
[2024-09-04 05:43] LABS: Lipase 26 U/L (12-53)
[2024-09-04 06:27] LABS: Base Excess -9.9 mmol/L (-2.0-3.0)
[2024-09-04 06:51] LABS: Band Neutrophils % (manual) 5; Lymphocytes % (manual) 8 (10.0-50.0); Monocytes % (manual) 9 (0-12); Smudge Cells 1 /100 WBC
[2024-09-04 06:52] LABS: Large Platelets FEW; Platelet Estimate Adequa
--- NOTE | 2024-09-04 08:24 | DVHINCON2 ---
Date of service: Sep 04, 2024 Family History: Diabetes mellitus G8 BROTHER FH: hypertension G8 FATHER Allergies: Coded Allergies: Hydrocodone (Verified Allergy, Mild, 09/02/24) Itchy Home Meds Active Scripts Tamsulosin Hcl (Flomax) 0.4 Mg Cap, 1 CAP PO HS, #10 CAP 11 Refills Prov:RADHA DE LA TORRE MD 02/25/24 Levofloxacin Hemihydrate (LEVAQUIN 500 MG) 500 Mg Tab, 1 TAB PO DAILY, #7 TAB Prov:RAHDA DE LA TORRE MD 02/25/24 Current Medications Current Medications Medications (Trade) Dose Ordered Sig/[place]acia Route PRN Reason Start Time Stop Time Status Last Admin Acetaminophen (Tylenol Solution Oral) 650 mg Q4HP PRN GT TEMP GREATER THAN 100.4 09/03/24 10:00 09/03/24 10:21 Norepinephrine Bitartrate 32 mg/ Sodium Chloride 250 ml @ 0.938 mls/ hr Q24H IV 09/03/24 12:30 09/03/24 12:30 Methylprednisolone Sodium Succinate (Solu Medrol) 100 mg Q6HP IV 09/03/24 15:30 09/04/24 06:59 Vasopressin 20 units/Sodium Chloride 100 ml @ 9 mls/hr Q11H7M IV 09/03/24 15:30 Meropenem 50 ml @ 17 mls/hr Q12HR IV 09/03/24 22:00 09/03/24 22:09 Pantoprazole Sodium (Protonix) 40 mg DAILY IV 09/04/24 10:00 Sodium Chloride 1,000 ml @ 100 mls/hr Q10H IV 09/03/24 15:45 09/04/24 02:42 Vital Signs Vital Signs Date Time Temp Pulse Resp B/P (MAP) Pulse Ox O2 Delivery O2 Flow Rate FiO2 09/04/24 08:02 122/78 09/04/24 06:45 99.0 88 20 98 99.0 09/04/24 06:27 80 09/04/24 06:00 Mechanical Ventilator+ 09/03/24 11:17 10 Labs/Diagnostic Data Labs Test 09/04/24 06:13 09/04/24 04:10 09/03/24 12:36 09/03/24 06:10 Range/Units Blood Gas Specimen Type Arterial Blood Gas Sample Site Right radial Blood Gas Patient Temperature 37.0 Arterial Blood Date Drawn [id number] Arterial Blood pH 7.193 *L 7.350-7.450 Arterial Blood Partial Pressure CO2 48.7 H 32.0-45.0 mmHg Arterial Blood Partial Pressure O2 65.3 L 83.0-108.0 mmHg Arterial Blood HCO3 18.3 L 21.0-28.0 mmol/L Arterial Blood Oxygen Saturation 91.7 L 94.0-98.0 % Arterial Blood Base Excess -9.9 L -2.0-3.0 mmol/L Arterial Blood Oxyhemoglobin 90.7 L 94.0-98.0 % Arterial Blood Carboxyhemoglobin 1.0 0.5-1.5 % Arterial Blood Methemoglobin 0.1 0.0-1.5 % Cy Test Modified Blood Gas Total Hemoglobin 16.00 12.0-16.0 g/dL Blood Gas Set Respiration Rate 20.0 Blood Gas Modality Vent - p/c FiO2 % 80.0 Blood Gas PEEP or CPAP 12.0 Blood Gas Critical Value Read Back Yes Blood Gas Notified Whom Blood Gas Notified Time [id number] Blood Gas Notified By Ryan davenport White Blood Count 30.7 *H 4.4-10.8 10^3/uL Red Blood Count 5.40 H 4.0-5.20 10^6/uL Hemoglobin 16.2 12.2-16.2 g/dL Hematocrit 48.5 H 36.0-46.0 % Mean Corpuscular Volume 89.8 80.0-100.0 fL Mean Corpuscular Hemoglobin 29.9 28.0-32.0 pg Mean Corpuscular Hemoglobin Concent 33.3 32.0-36.0 g/dL Red Cell Distribution Width 13.9 11.8-14.3 % Platelet Count 291 140-450 10^3/uL Mean Platelet Volume 8.7 6.9-10.8 fL Neutrophils (%) (Auto) 37.0-80.0 % Lymphocytes (%) (Auto) 10.0-50.0 % Monocytes (%) (Auto) 0.0-12.0 % Basophils (%) (Auto) 0.0-2.0 % Neutrophils # (Auto) 1.6-8.6 10 ^3/uL Lymphocytes # (Auto) 0.4-5.4 10 ^3/uL Monocytes # (Auto) 0-1.3 10 ^3/uL Differential Total Cells Counted 100.0 100 Neutrophils % (Manual) 78 37.0-80.0 Band Neutrophils % (Manual) 5 Lymphocytes % (Manual) 8 L 10.0-50.0 Monocytes % (Manual) 9 0-12 Eosinophils % (Manual) 0 0-7 Basophils % (Manual) 0 0.0-2.0 Metamyelocytes % (manual) 0 Myelocytes % (Manual) 0 Promyelocytes % (Manual) 0 Blast Cells % (Manual) 0 Reactive Lymphocytes 0 Smudge Cells 1 /100 WBC Platelet Estimate [place] Clumped Platelets Few Large Platelets Few Prothrombin Time 12.8 H 9.3-11.8 sec Prothrombin Time INR 1.23 H 0.9-1.15 Activated Partial Thromboplast Time 30.2 24.5-34.5 SEC Sodium Level 132 L 136-145 mmol/L Potassium Level 5.4 H 3.5-5.1 mmol/L Chloride Level 100 98-107 mmol/L Carbon Dioxide Level 20 20-31 mmol/L Anion Gap 12 5-15 Blood Urea Nitrogen 44 #H 9-23 mg/dL Creatinine 4.48 #H 0.550-1.02 mg/dL Glomerular Filtration Rate Calc 11 >90 mL/min BUN/Creatinine Ratio 9.8 L 10.0-20.0 Serum Glucose 192 H 74-106 mg/dL Hemoglobin A1c 5.7 <5.7 % A1C Calcium Level 8.8 8.7-10.4 mg/dL Magnesium Level 2.3 1.6-2.6 mg/dL Total Bilirubin 0.8 0.2-1.0 mg/dL Aspartate Amino Transferase (AST) 200 H 13-40 U/L Alanine Aminotransferase (ALT) 64 H 7-40 U/L Alkaline Phosphatase 166 H 46-116 U/L Ammonia 21 11-32 umol/L Total Protein 6.8 5.7-8.2 g/dL Albumin 3.8 3.2-4.8 g/dL Triglycerides Level 623 H < 150 mg/dL Cholesterol Level 145 < 200 mg/dL LDL Cholesterol < 100 mg/dL HDL Cholesterol 10 L 40-59 mg/dL Lipase 26 12-53 U/L Thyroid Stimulating Hormone (TSH) 0.83 0.55-4.78 uIU/mL Random Vancomycin Level 24.5 H 5-10 ug/mL Nucleated Red Blood Cells 1.0 % Lactic Acid Level 3.0 *H 0.4-2.0 mmol/L Blood Gas Inspiratory Pressure 18.0 Test 09/02/24 19:17 09/02/24 18:49 09/02/24 16:28 09/02/24 16:00 Range/Units Troponin I High Sensitivity 72 *H </=34 ng/L SARS-CoV-2 Antigen (Rapid) Negative NEGATIVE Toy Cells Moderate B-Type Natriuretic Peptide 249.65 0-100 pg/mL Urine Color Yellow Yellow Urine Clarity Turbid H Clear Urine pH 5.5 5.0-9.0 Urine Specific [place] 1.024 1.001-1.035 Urine Protein Trace H Negative Urine Ketones Trace Negative Urine Blood Negative Negative /uL Urine Nitrite Negative Negative Urine Bilirubin Negative Negative Urine Urobilinogen 3 H Negative mg/dL Urine Leukocyte Esterase 2+ Negative /uL Urine RBC 1 0 - 4 /hpf Urine WBC 9 0 - 5 /hpf Urine Squamous Epithelial Cells Mod <5 /hpf Urine Bacteria Few H None Seen /hpf Urine Glucose Normal Normal mg/dL Test 09/02/24 15:29 09/02/24 15:13 Range/Units Influenza Type A Antigen Negative Negative Influenza Type B Antigen Negative Negative Blood Gas EPAP 5 Blood Gas IPAP 20 Microbiology Date/Time Source Procedure Growth Status 09/02/24 17:44 Blood Blood Culture - Preliminary Resulted 09/02/24 15:35 Sputum Gram Stain - Final Resulted 09/02/24 15:35 Sputum Respiratory Culture - Preliminary Resulted Assessment abdomen soft, several reducible ventral hernias(recurrent), ct reviewed. will request gastrografin small bowel follow through Plan discussed with: Other JUNI DRISCOLL MD Sep 04, 2024 08:24
[2024-09-04] MEDS: GASTROGRAFIN 120 ML SOL ONE (09:30)
[2024-09-04] MEDS: PANTOPRAZOLE 40 MG/10 ML VIAL INJ IV SCH (09:57)
--- NOTE | 2024-09-04 10:15 | DVHINCON2 ---
Date of service: Sep 04, [address] Mcdowell Reason for Consultation Shortness of breath History of Present Illness Patient is a 63-year-old female who is morbidly obese with previous h/o PE presents to the hospital for the complaint of worsening shortness of breath. She ended up getting intubated due to respiraotory distress. She was hypotensive with multiple organ failure. . Initial twelve electrocardiogram reveals sinus tachycardia with prolonged QTc interval at 570. Initial troponin level of 18ng/ L with uptrend thereafter. Initial BNP level of 249.65pg/mL. Chest x-ray shows pulmonary edema. She meets sepsis criteria and will continue to be managed in an acute critical care setting She also has suture granuloma from previous surgery. Patient's past medical history is significant for obesity, umbilical hernia, and multiple abdominal surgeries. Past Medical History Patient's past medical is significant for Hypertension and Pulmonary embolus. Family History: Diabetes mellitus G8 BROTHER FH: hypertension G8 FATHER Allergies: Coded Allergies: Hydrocodone (Verified Allergy, Mild, 09/02/24) Itchy Home Meds Active Scripts Tamsulosin Hcl (Flomax) 0.4 Mg Cap, 1 CAP PO HS, #10 CAP 11 Refills Prov:RADHA DE LA TORRE MD 02/25/24 Levofloxacin Hemihydrate (LEVAQUIN 500 MG) 500 Mg Tab, 1 TAB PO DAILY, #7 TAB Prov:RADHA DE LA TORRE MD 02/25/24 Current Medications Current Medications Medications (Trade) Dose Ordered Sig/[place] Route PRN Reason Start Time Stop Time Status Last Admin Acetaminophen (Tylenol Solution Oral) 650 mg Q4HP PRN GT TEMP GREATER THAN 100.4 09/03/24 10:00 09/03/24 10:21 Norepinephrine Bitartrate 32 mg/ Sodium Chloride 250 ml @ 0.938 mls/ hr Q24H IV 09/03/24 12:30 09/03/24 12:30 Methylprednisolone Sodium Succinate (Solu Medrol) 100 mg Q6HP IV 09/03/24 15:30 09/04/24 06:59 Vasopressin 20 units/Sodium Chloride 100 ml @ 9 mls/hr Q11H7M IV 09/03/24 15:30 Meropenem 50 ml @ 17 mls/hr Q12HR IV 09/03/24 22:00 09/03/24 22:09 Pantoprazole Sodium (Protonix) 40 mg DAILY IV 09/04/24 10:00 Sodium Chloride 1,000 ml @ 100 mls/hr Q10H IV 09/03/24 15:45 09/04/24 02:42 Review of Systems Constitutional: No: Fever, Chills, Sweats, Weakness, Malaise, Other Eyes: No: Pain, Vision change, Conjunctivae inflammation, Eyelid inflammation, Other, Redness Respiratory: Shortness of breath, SOB with exertion, Wheezing; No: Cough, Dry, Hemoptysis, Pleuritic Pain, Sputum, Wheezing, Other Cardiovascular: No: Chest Pain, Palpitations, Orthopnea, Paroxysmal Noc. Dyspnea, Edema, Lt Headedness, Other Gastrointestinal: No: Nausea, Vomiting, Abdominal Pain, Diarrhea, Constipation, Melena, Hematochezia, Other Genitourinary: No Dysuria, No Frequency, No Incontinence, No Hematuria, No Retention, No Other Musculoskeletal: No: other, neck pain, shoulder pain, arm pain, back pain, hand pain, leg pain, foot pain Skin: No: Rash, Lesions, Jaundice, Bruising, Other Neurological: No: Weakness, Numbness, Incoordination, Change in speech, Confusion, Seizures, Other Vital Signs Vital Signs Date Time Temp Pulse Resp B/P (MAP) Pulse Ox O2 Delivery O2 Flow Rate FiO2 09/04/24 08:25 91 20 119/78 (92) 97 75 09/04/24 08:00 Mechanical Ventilator+ 09/04/24 06:45 99.0 99.0 09/03/24 11:17 10 Physical Exam General Appearance: sedated, Other (intubated sedated ) HEENT: Atraumatic Respiratory: Clear to auscultation (mechanically intubated and sedated ) Cardiovascular: Regular rate (tachycardia noted ), Normal S1, Normal S2 Abdominal: Normal bowel sounds (morbid pannus limited physical palpation ), Soft Extremities: edema Skin: suture granuloma on abdomen wall Neuro: unable to assess Labs/Diagnostic Data Labs Test 09/04/24 06:13 09/04/24 04:10 09/03/24 12:36 09/03/24 06:10 Range/Units Blood Gas Specimen Type Arterial Blood Gas Sample Site Right radial Blood Gas Patient Temperature 37.0 Arterial Blood Date Drawn [id number] Arterial Blood pH 7.193 *L 7.350-7.450 Arterial Blood Partial Pressure CO2 48.7 H 32.0-45.0 mmHg Arterial Blood Partial Pressure O2 65.3 L 83.0-108.0 mmHg Arterial Blood HCO3 18.3 L 21.0-28.0 mmol/L Arterial Blood Oxygen Saturation 91.7 L 94.0-98.0 % Arterial Blood Base Excess -9.9 L -2.0-3.0 mmol/L Arterial Blood Oxyhemoglobin 90.7 L 94.0-98.0 % Arterial Blood Carboxyhemoglobin 1.0 0.5-1.5 % Arterial Blood Methemoglobin 0.1 0.0-1.5 % Cy Test Modified Blood Gas Total Hemoglobin 16.00 12.0-16.0 g/dL Blood Gas Set Respiration Rate 20.0 Blood Gas Modality Vent - p/c FiO2 % 80.0 Blood Gas PEEP or CPAP 12.0 Blood Gas Critical Value Read Back Yes Blood Gas Notified Whom Blood Gas Notified Time [id number] Blood Gas Notified By Administrative Support Clerk ethel White Blood Count 30.7 *H 4.4-10.8 10^3/uL Red Blood Count 5.40 H 4.0-5.20 10^6/uL Hemoglobin 16.2 12.2-16.2 g/dL Hematocrit 48.5 H 36.0-46.0 % Mean Corpuscular Volume 89.8 80.0-100.0 fL Mean Corpuscular Hemoglobin 29.9 28.0-32.0 pg Mean Corpuscular Hemoglobin Concent 33.3 32.0-36.0 g/dL Red Cell Distribution Width 13.9 11.8-14.3 % Platelet Count 291 140-450 10^3/uL Mean Platelet Volume 8.7 6.9-10.8 fL Neutrophils (%) (Auto) 37.0-80.0 % Lymphocytes (%) (Auto) 10.0-50.0 % Monocytes (%) (Auto) 0.0-12.0 % Basophils (%) (Auto) 0.0-2.0 % Neutrophils # (Auto) 1.6-8.6 10 ^3/uL Lymphocytes # (Auto) 0.4-5.4 10 ^3/uL Monocytes # (Auto) 0-1.3 10 ^3/uL Differential Total Cells Counted 100.0 100 Neutrophils % (Manual) 78 37.0-80.0 Band Neutrophils % (Manual) 5 Lymphocytes % (Manual) 8 L 10.0-50.0 Monocytes % (Manual) 9 0-12 Eosinophils % (Manual) 0 0-7 Basophils % (Manual) 0 0.0-2.0 Metamyelocytes % (manual) 0 Myelocytes % (Manual) 0 Promyelocytes % (Manual) 0 Blast Cells % (Manual) 0 Reactive Lymphocytes 0 Smudge Cells 1 /100 WBC Platelet Estimate [place] Clumped Platelets Few Large Platelets Few Prothrombin Time 12.8 H 9.3-11.8 sec Prothrombin Time INR 1.23 H 0.9-1.15 Activated Partial Thromboplast Time 30.2 24.5-34.5 SEC Sodium Level 132 L 136-145 mmol/L Potassium Level 5.4 H 3.5-5.1 mmol/L Chloride Level 100 98-107 mmol/L Carbon Dioxide Level 20 20-31 mmol/L Anion Gap 12 5-15 Blood Urea Nitrogen 44 #H 9-23 mg/dL Creatinine 4.48 #H 0.550-1.02 mg/dL Glomerular Filtration Rate Calc 11 >90 mL/min BUN/Creatinine Ratio 9.8 L 10.0-20.0 Serum Glucose 192 H 74-106 mg/dL Hemoglobin A1c 5.7 <5.7 % A1C Calcium Level 8.8 8.7-10.4 mg/dL Magnesium Level 2.3 1.6-2.6 mg/dL Total Bilirubin 0.8 0.2-1.0 mg/dL Aspartate Amino Transferase (AST) 200 H 13-40 U/L Alanine Aminotransferase (ALT) 64 H 7-40 U/L Alkaline Phosphatase 166 H 46-116 U/L Ammonia 21 11-32 umol/L Total Protein 6.8 5.7-8.2 g/dL Albumin 3.8 3.2-4.8 g/dL Triglycerides Level 623 H < 150 mg/dL Cholesterol Level 145 < 200 mg/dL LDL Cholesterol < 100 mg/dL HDL Cholesterol 10 L 40-59 mg/dL Lipase 26 12-53 U/L Thyroid Stimulating Hormone (TSH) 0.83 0.55-4.78 uIU/mL Random Vancomycin Level 24.5 H 5-10 ug/mL Nucleated Red Blood Cells 1.0 % Lactic Acid Level 3.0 *H 0.4-2.0 mmol/L Blood Gas Inspiratory Pressure 18.0 Test 09/02/24 19:17 09/02/24 18:49 09/02/24 16:28 09/02/24 16:00 Range/Units Troponin I High Sensitivity 72 *H </=34 ng/L SARS-CoV-2 Antigen (Rapid) Negative NEGATIVE Toy Cells Moderate B-Type Natriuretic Peptide 249.65 0-100 pg/mL Urine Color Yellow Yellow Urine Clarity Turbid H Clear Urine pH 5.5 5.0-9.0 Urine Specific [place] 1.024 1.001-1.035 Urine Protein Trace H Negative Urine Ketones Trace Negative Urine Blood Negative Negative /uL Urine Nitrite Negative Negative Urine Bilirubin Negative Negative Urine Urobilinogen 3 H Negative mg/dL Urine Leukocyte Esterase 2+ Negative /uL Urine RBC 1 0 - 4 /hpf Urine WBC 9 0 - 5 /hpf Urine Squamous Epithelial Cells Mod <5 /hpf Urine Bacteria Few H None Seen /hpf Urine Glucose Normal Normal mg/dL Test 09/02/24 15:29 09/02/24 15:13 Range/Units Influenza Type A Antigen Negative Negative Influenza Type B Antigen Negative Negative Blood Gas EPAP 5 Blood Gas IPAP 20 Microbiology Date/Time Source Procedure Growth Status 09/02/24 17:44 Blood Blood Culture - Preliminary Resulted 09/02/24 15:35 Sputum Gram Stain - Final Resulted 09/02/24 15:35 Sputum Respiratory Culture - Preliminary Resulted Assessment Patient is a 63-year-old female presented to the hospital with: Staphylococcus aureus pneumonia Septic shock Acute Respiratory Failure [requiring mechanical ventilation] Metabolic acidosis FEDE Morbidly obese BMI = 40 PE history Recommendations: cont IV Vancomycin and IV Cefepime switched to Meropenem Lactic acid initially elevated Pulmonary Consulted for vent management Blood culture: Positive for Cocci in clusters Sputum culture: Positive for Staphylococcus aureus nephrology is on board possible plan for HD follow cultures and senstivity prognosis very poor crit time 45 mins spent during the encounter. Thank you for consult and for giving an opportunity to take care of this patient. Plan discussed with: ANGELLA Peng MD Sep 04, 2024 10:15
--- NOTE | 2024-09-04 12:20 | DVH ---
Procedure: XY SMALL BOWEL SERIES-W GASTROGRA Reason for study/Clinical History: r/o obstruction Comparison Study: None available at time of dictation. Technique: Single contrast small bowel series performed. FINDINGS/IMPRESSION: Initial replenishment buyer view of the abdomen and pelvis demonstrates nonspecific bowel-gas pattern. Patient unable to tolerate exam.
--- NOTE | 2024-09-04 12:40 | DVHINCON2 ---
Date of service: Sep 04, 2024 Referring Physician Aj Banda MD Reason for Consultation Acute kidney injury History of Present Illness Mrs. Armendariz is a 63-year-old female with known history of obesity, prior history of PE presented for further evaluation and management of shortness of breath. Her clinical course has been notable for requiring intubation, mechanical ventilatory support. She has had profound hypotension requiring vasopressor therapy. She was seen in the emergency department intubated and sedated. All the history was obtained through the chart. Serum creatinine has increased significantly since admission. Urine volumes oliguric. Past Medical History Hypertension Diabetes Obesity Past Surgical History History abdominal surgery for hernia Allergies: Coded Allergies: Hydrocodone (Verified Allergy, Mild, 09/02/24) Itchy Home Meds Active Scripts Tamsulosin Hcl (Flomax) 0.4 Mg Cap, 1 CAP PO HS, #10 CAP 11 Refills Prov:RADHA DE LA TORRE MD 02/25/24 Levofloxacin Hemihydrate (LEVAQUIN 500 MG) 500 Mg Tab, 1 TAB PO DAILY, #7 TAB Prov:RADHA DE LA TORRE MD 02/25/24 Current Medications Current Medications Medications (Trade) Dose Ordered Sig/[place] Route PRN Reason Start Time Stop Time Status Last Admin Methylprednisolone Sodium Succinate (Solu Medrol) 100 mg Q6HP IV 09/03/24 15:30 09/04/24 11:35 Vasopressin 20 units/Sodium Chloride 100 ml @ 9 mls/hr Q11H7M IV 09/03/24 15:30 Meropenem 50 ml @ 17 mls/hr Q12HR IV 09/03/24 22:00 09/04/24 09:51 Pantoprazole Sodium (Protonix) 40 mg DAILY IV 09/04/24 10:00 09/04/24 09:57 Sodium Chloride 1,000 ml @ 100 mls/hr Q10H IV 09/03/24 15:45 09/04/24 11:41 Family History: Diabetes mellitus G8 BROTHER FH: hypertension G8 FATHER Review of Systems Unable to be obtained due to patient's critical status H&P Exam Vital Signs/I&O Vital Sign Date Time Temp Pulse Resp B/P (MAP) Pulse Ox O2 Delivery O2 Flow Rate FiO2 09/04/24 12:00 99.1 102 20 141/85 (103) 94 99.1 09/04/24 12:00 95 09/04/24 12:00 Mechanical Ventilator+ 09/03/24 11:17 10 Intake and Output 09/03/24 09/04/24 19:00 07:00 Intake Total 1678.207 ml 2094.342 ml Output Total 525 ml Balance 1678.207 ml 1569.342 ml Intake Oral 0 ml IV Total 1678.207 ml 2094.342 ml Output Urine Total 325 ml Gastric Drainage Total 200 ml Physical Exam Gen: Intubated, sedated heent: nc/at, mmm lungs: Clear to auscultation cvs: No appreciable friction rub abd: soft, bowel sounds audible ext: no edema skin: no rash neuro: Sedated Labs/Diagnostic Data Labs/Diagnostic Data Laboratory Tests Test 09/04/24 06:13 09/04/24 04:10 09/03/24 12:36 09/03/24 06:10 Range/Units Blood Gas Specimen Type Arterial Arterial Blood Gas Sample Site Right radial Right radial Blood Gas Patient Temperature 37.0 37.0 Arterial Blood Date Drawn [id number] Arterial Blood pH 7.193 *L 7.201 *L 7.350-7.450 Arterial Blood Partial Pressure CO2 48.7 H 53.8 H 32.0-45.0 mmHg Arterial Blood Partial Pressure O2 65.3 L 78.3 L 83.0-108.0 mmHg Arterial Blood HCO3 18.3 L 20.6 L 21.0-28.0 mmol/L Arterial Blood Oxygen Saturation 91.7 L 93.6 L 94.0-98.0 % Arterial Blood Base Excess -9.9 L -8.0 L -2.0-3.0 mmol/L Arterial Blood Oxyhemoglobin 90.7 L 92.5 L 94.0-98.0 % Arterial Blood Carboxyhemoglobin 1.0 1.0 0.5-1.5 % Arterial Blood Methemoglobin 0.1 0.2 0.0-1.5 % Cy Test Modified Modified Blood Gas Total Hemoglobin 16.00 16.50 H 12.0-16.0 g/dL Blood Gas Set Respiration Rate 20.0 20.0 Blood Gas Modality Vent - p/c Vent - p/c FiO2 % 80.0 100.0 Blood Gas PEEP or CPAP 12.0 12.0 Blood Gas Critical Value Read Back Yes Yes Blood Gas Notified Whom Dr.r.gomez Krishnan Blood Gas Notified Time [id number] Blood Gas Notified By Sm[employer] P[employer]er ethel Sm[employer] pat White Blood Count 30.7 *H 36.8 *H 4.4-10.8 10^3/uL Red Blood Count 5.40 H 5.49 H 4.0-5.20 10^6/uL Hemoglobin 16.2 16.4 H 12.2-16.2 g/dL Hematocrit 48.5 H 49.3 H 36.0-46.0 % Mean Corpuscular Volume 89.8 89.8 80.0-100.0 fL Mean Corpuscular Hemoglobin 29.9 29.8 28.0-32.0 pg Mean Corpuscular Hemoglobin Concent 33.3 33.2 32.0-36.0 g/dL Red Cell Distribution Width 13.9 14.3 11.8-14.3 % Platelet Count 291 332 140-450 10^3/uL Mean Platelet Volume 8.7 8.4 6.9-10.8 fL Neutrophils (%) (Auto) 37.0-80.0 % Lymphocytes (%) (Auto) 10.0-50.0 % Monocytes (%) (Auto) 0.0-12.0 % Basophils (%) (Auto) 0.0-2.0 % Neutrophils # (Auto) 1.6-8.6 10 ^3/uL Lymphocytes # (Auto) 0.4-5.4 10 ^3/uL Monocytes # (Auto) 0-1.3 10 ^3/uL Differential Total Cells Counted 100.0 100.0 100 Neutrophils % (Manual) 78 81 H 37.0-80.0 Band Neutrophils % (Manual) 5 8 Lymphocytes % (Manual) 8 L 6 L 10.0-50.0 Monocytes % (Manual) 9 5 0-12 Eosinophils % (Manual) 0 0 0-7 Basophils % (Manual) 0 0 0.0-2.0 Metamyelocytes % (manual) 0 0 Myelocytes % (Manual) 0 0 Promyelocytes % (Manual) 0 0 Blast Cells % (Manual) 0 0 Reactive Lymphocytes 0 0 Smudge Cells 1 /100 WBC Platelet Estimate [place] Adequate Clumped Platelets Few Large Platelets Few Few Prothrombin Time 12.8 H 14.6 H 9.3-11.8 sec Prothrombin Time INR 1.23 H 1.41 H 0.9-1.15 Activated Partial Thromboplast Time 30.2 24.5-34.5 SEC Sodium Level 132 L 136 136-145 mmol/L Potassium Level 5.4 H 4.7 3.5-5.1 mmol/L Chloride Level 100 101 98-107 mmol/L Carbon Dioxide Level 20 24 20-31 mmol/L Anion Gap 12 11 5-15 Blood Urea Nitrogen 44 #H 31 #H 9-23 mg/dL Creatinine 4.48 #H 3.30 #H 0.550-1.02 mg/dL Glomerular Filtration Rate Calc 11 15 >90 mL/min BUN/Creatinine Ratio 9.8 L 9.4 L 10.0-20.0 Serum Glucose 192 H 122 H 74-106 mg/dL Hemoglobin A1c 5.7 <5.7 % A1C Calcium Level 8.8 9.3 8.7-10.4 mg/dL Magnesium Level 2.3 2.0 1.6-2.6 mg/dL Total Bilirubin 0.8 0.9 0.2-1.0 mg/dL Aspartate Amino Transferase (AST) 200 H 70 H 13-40 U/L Alanine Aminotransferase (ALT) 64 H 40 7-40 U/L Alkaline Phosphatase 166 H 152 H 46-116 U/L Ammonia 21 < 10 L 11-32 umol/L Total Protein 6.8 7.0 5.7-8.2 g/dL Albumin 3.8 4.1 3.2-4.8 g/dL Triglycerides Level 623 H < 150 mg/dL Cholesterol Level 145 < 200 mg/dL LDL Cholesterol < 100 mg/dL HDL Cholesterol 10 L 40-59 mg/dL Lipase 26 12-53 U/L Thyroid Stimulating Hormone (TSH) 0.83 0.55-4.78 uIU/mL Random Vancomycin Level 24.5 H 5-10 ug/mL Nucleated Red Blood Cells 1.0 % Lactic Acid Level 3.0 *H 0.4-2.0 mmol/L Blood Gas Inspiratory Pressure 18.0 Test 09/02/24 19:17 09/02/24 18:49 09/02/24 17:44 09/02/24 16:28 Range/Units Troponin I High Sensitivity 72 *H 45 *H 18 </=34 ng/L SARS-CoV-2 Antigen (Rapid) Negative NEGATIVE Lactic Acid Level 2.6 *H 2.5 *H 0.4-2.0 mmol/L White Blood Count 32.9 *H 4.4-10.8 10^3/uL Red Blood Count 5.90 H 4.0-5.20 10^6/uL Hemoglobin 17.6 H 12.2-16.2 g/dL Hematocrit 53.2 H 36.0-46.0 % Mean Corpuscular Volume 90.2 80.0-100.0 fL Mean Corpuscular Hemoglobin 29.9 28.0-32.0 pg Mean Corpuscular Hemoglobin Concent 33.1 32.0-36.0 g/dL Red Cell Distribution Width 13.8 11.8-14.3 % Platelet Count 316 140-450 10^3/uL Mean Platelet Volume 8.0 6.9-10.8 fL Neutrophils (%) (Auto) 37.0-80.0 % Lymphocytes (%) (Auto) 10.0-50.0 % Monocytes (%) (Auto) 0.0-12.0 % Basophils (%) (Auto) 0.0-2.0 % Neutrophils # (Auto) 1.6-8.6 10 ^3/uL Lymphocytes # (Auto) 0.4-5.4 10 ^3/uL Monocytes # (Auto) 0-1.3 10 ^3/uL Differential Total Cells Counted 100.0 100 Neutrophils % (Manual) 57 37.0-80.0 Band Neutrophils % (Manual) 28 Lymphocytes % (Manual) 5 L 10.0-50.0 Monocytes % (Manual) 10 0-12 Eosinophils % (Manual) 0 0-7 Basophils % (Manual) 0 0.0-2.0 Metamyelocytes % (manual) 0 Myelocytes % (Manual) 0 Promyelocytes % (Manual) 0 Blast Cells % (Manual) 0 Reactive Lymphocytes 0 Platelet Estimate Adequate [place] Cells Moderate Sodium Level 135 L 136-145 mmol/L Potassium Level 4.1 3.5-5.1 mmol/L Chloride Level 103 98-107 mmol/L Carbon Dioxide Level 20 20-31 mmol/L Anion Gap 12 5-15 Blood Urea Nitrogen 15 9-23 mg/dL Creatinine 0.96 0.550-1.02 mg/dL Glomerular Filtration Rate Calc 67 >90 mL/min BUN/Creatinine Ratio 15.6 10.0-20.0 Serum Glucose 135 H 74-106 mg/dL Calcium Level 10.2 8.7-10.4 mg/dL Total Bilirubin 2.6 H 0.2-1.0 mg/dL Aspartate Amino Transferase (AST) 49 H 13-40 U/L Alanine Aminotransferase (ALT) 32 7-40 U/L Alkaline Phosphatase 164 H 46-116 U/L B-Type Natriuretic Peptide 249.65 0-100 pg/mL Total Protein 6.7 5.7-8.2 g/dL Albumin 4.2 3.2-4.8 g/dL Lipase 20 12-53 U/L Test 09/02/24 16:00 09/02/24 15:29 09/02/24 15:13 Range/Units Urine Color Yellow Yellow Urine Clarity Turbid H Clear Urine pH 5.5 5.0-9.0 Urine Specific [place] 1.024 1.001-1.035 Urine Protein Trace H Negative Urine Ketones Trace Negative Urine Blood Negative Negative /uL Urine Nitrite Negative Negative Urine Bilirubin Negative Negative Urine Urobilinogen 3 H Negative mg/dL Urine Leukocyte Esterase 2+ Negative /uL Urine RBC 1 0 - 4 /hpf Urine WBC 9 0 - 5 /hpf Urine Squamous Epithelial Cells Mod <5 /hpf Urine Bacteria Few H None Seen /hpf Urine Glucose Normal Normal mg/dL Influenza Type A Antigen Negative Negative Influenza Type B Antigen Negative Negative Blood Gas Specimen Type Arterial Blood Gas Sample Site Left radial Blood Gas Patient Temperature 37.0 Arterial Blood Date Drawn [id number] Arterial Blood pH 7.476 H 7.350-7.450 Arterial Blood Partial Pressure CO2 30.2 L 32.0-45.0 mmHg Arterial Blood Partial Pressure O2 48.4 *L 83.0-108.0 mmHg Arterial Blood HCO3 21.8 21.0-28.0 mmol/L Arterial Blood Oxygen Saturation 86.6 L 94.0-98.0 % Arterial Blood Base Excess -0.5 -2.0-3.0 mmol/L Arterial Blood Oxyhemoglobin 84.4 L 94.0-98.0 % Arterial Blood Carboxyhemoglobin 2.3 H 0.5-1.5 % Arterial Blood Methemoglobin 0.2 0.0-1.5 % Cy Test Modified Blood Gas Total Hemoglobin 16.80 H 12.0-16.0 g/dL Blood Gas Set Respiration Rate 12.0 Blood Gas Modality Mask - bipap FiO2 % 100.0 Blood Gas EPAP 5 Blood Gas IPAP 20 Blood Gas Critical Value Read Back yes Blood Gas Notified Whom lakshmi Napier md Blood Gas Notified Time [id number] Blood Gas Notified By Assessment IMP: 1) Hemodynamically mediated FEDE/VMN setting of hypotension, concurrent NSAID use 2) CKD stage IIIA? 3) shock with multiorgan involvement 4) history of PE 5) leukocytosis 6) bacteremia REC: - we will check urine studies, serial chemistry panels - volume expansion as cardiopulmonary status permits - avoidance of further intravenous contrast studies and NSAIDs if able - we will continue to follow closely with you. - thank you for the consultation Plan discussed with: PERICO Copeland MD Sep 04, 2024 12:40
--- NOTE | 2024-09-04 13:13 | DVHPN2 ---
Consult Progress Note Date Seen: Sep 04, 2024 Subjective Other Systems: Patient remains chemically sedated and mechanically ventilated. Objective vital signs Vital Sign Date Time Temp Pulse Resp B/P (MAP) Pulse Ox O2 Delivery O2 Flow Rate FiO2 09/04/24 12:00 99.1 102 20 141/85 (103) 94 99.1 09/04/24 12:00 95 09/04/24 12:00 Mechanical Ventilator+ 09/03/24 11:17 10 Total Intake and Output 09/03/24 09/03/24 09/04/24 15:00 23:00 07:00 Intake Total 1033.030 ml 1351.729 ml 1387.790 ml Output Total 525 ml Balance 1033.030 ml 1351.729 ml 862.790 ml medications Current Medications Medications Dose Ordered Sig/[place] Route Start Time Stop Time Status Last Admin Dose Admin Midazolam HCl 50 ml @ 1 mls/hr Q24H IV 09/02/24 15:45 09/04/24 11:28 15 MLS/HR Fentanyl Citrate 250 ml @ 2.5 mls/hr Q24H IV 09/02/24 15:45 09/04/24 11:07 27.5 MLS/HR Propofol 100 ml @ 3.54 mls/hr Q24H IV 09/02/24 15:45 09/04/24 11:48 17.7 MLS/HR Vancomycin HCl 0 ml @ 0 mls/hr UD IV 09/02/24 18:30 Albuterol 2.5 mg Q4HWA PRN NEB 09/02/24 18:30 09/04/24 10:36 2.5 MG Ipratropium [place] 0.5 mg Q4HWA PRN NEB 09/02/24 18:30 09/04/24 10:36 0.5 MG Acetaminophen 650 mg Q4HP PRN GT 09/03/24 10:00 09/03/24 10:21 650 MG Norepinephrine Bitartrate 32 mg/ Sodium Chloride 250 ml @ 0.938 mls/ hr Q24H IV 09/03/24 12:30 09/04/24 11:10 8.438 MLS/HR Methylprednisolone Sodium Succinate 100 mg Q6HP IV 09/03/24 15:30 09/04/24 11:35 100 MG Vasopressin 20 units/Sodium Chloride 100 ml @ 9 mls/hr Q11H7M IV 09/03/24 15:30 Meropenem 50 ml @ 17 mls/hr Q12HR IV 09/03/24 22:00 09/04/24 09:51 17 MLS/HR Pantoprazole Sodium 40 mg DAILY IV 09/04/24 10:00 09/04/24 09:57 40 MG Sodium Chloride 1,000 ml @ 100 mls/hr Q10H IV 09/03/24 15:45 09/04/24 11:41 100 MLS/HR Examination: GENERAL:Abnormal, LUNGS:Abnormal (Mechanically ventilated, FIO2 95%, PEEP 12), CVS:Normal, NEURO:Abnormal (Chemically sedated) laboratory and microbiology Laboratory Tests 09/04/24 04:10 Test 09/04/24 04:10 Range/Units Serum Glucose 192 H 74-106 mg/dL Problem List/Assessment/Plan Problem List/Assessment/Plan Septic shock Bacteremia Acute on chronic respiratory failure NSTEMI type II secondary to above Acute on chronic HFpEF, NYHA class IV Prolonged QT interval, resolved Chronic kidney disease Morbid obesity, Class 3 Plan/Recommendation (Dr. Bowman): Patient seen and examined at bedside with . Transthoracic echocardiogram reveals EF 65%. We will recommend to continue vasopressors for hemodynamic support at this time and we will change the strength to Quad concentration to prevent fluid overload. We will also recommend to avoid medications that prolong QT interval as patient came in with a prolonged QT interval and is at risk for going into torsades de pointes. Repeat twelve lead electrocardiogram on 09/04/2024 reveals improvement in QTc interval, now less than 500. Abdomen CT reveals a suspected bowel obstruction. Surgical consult and recommendations. Antibiotics per primary care team. Thank you for allowing us to care for this patient. Please call with any questions or concerns. Critical care time spent: 39 minutes. This medical document was created using an electronic medical record system with voice recognition software and computerized dictation system. Although this document has been carefully reviewed, there might still be some phonetic and typographical errors. Occasional wrong-word or ``sound-alike substitutions may have occurred due to the inherent limitations of voice recognition software. These areas are purely typographical due to imperfections of the software programs and do not reflect any compromise in the patient's medical care. Please read the chart carefully and recognize, using context, where these substitutions have occurred. Plan discussed with: Other (Bedside RN) Date of Service: Sep 04, 2024 Billing Provider: RAMA ELLIS Cardiology Common Codes: [id number] INP/OBS CARE(Mod) RAMA ELLIS Sep 04, 2024 13:13
--- NOTE | 2024-09-04 14:27 | DVHSR ---
APPROVED REPORT EXAM: LIMITED Two-dimensional and M-mode echocardiogram with Doppler and color Doppler. Blood Pressure: 119/78 mmHg INDICATION Evaluate cardiac function RISK FACTORS Obesity: Height: 5' 8", Weight: 260 DIMENSIONS LVDd4.6 (3.8-5.7cm)LA (2D)3.9 (1.9-4.0cm)Aortic Root3.3 (2.0-3.7cm) LVDs3.5 (2.5-4.0cm)LA (MM) (1.9-4.0cm)Aortic Cusp Exc1.8 (1.5-2.0cm) EF (%) 50.0 (55-70%)Rt. Atrium4.0 (1.9-4.0cm)Asc. Aorta cm IVSd1.1 (0.7-1.1cm)RV (D) (1.8-2.4cm) PWd1.1 (0.7-1.1cm) Mitral Valve MitralMitral Stenosis E wave1.00m/sMV Mean GR.mmHg A wave0.90m/sMV Peak GR.mmHg E/A ratio1.12D MVAcm2 Aortic Valve Aortic ValveAortic Stenosis V11.30m/[place] Mean GR.5mmHg V21.50m/[place] Peak GR.9mmHg LVOT Diameter2.1 (1.8-2.4cm)Doppler AVA3.00cm2 Pulmonic Valve V20.60m/s Other Information Quality : Technically LimitedRhythm : Abnormal Technically limited study due to body habitus. Conclusion MILD LVH AND MILD LV DIASTOLIC DYSFUNCTION LV EJECTION FRACTION IS 65% POSTERIOR MITRAL LEAFLET IS CALCIFIED BUT NO STENOSIS NORMAL TV,PV AND AORTIC VALVE NO EFFUSION MODERATELY DILATED RV AND RA DYSKINESIS OF IVS FINDINGS REVEAL RV FAILURE
[2024-09-04 14:49] LABS: Urine Amorphous Crystal FEW /hpf (None Seen); Urine Bacteria FEW /hpf (None Seen); Urine Blood 3+ /uL (Negative); Urine Clarity Turbid (Clear); Urine Color Yellow (Yellow); Urine Protein, UAD 2+ (Negative); Urine Specific Gravity 1.021 (1.001-1.035); Urine Squamous Epithelial Cell FEW /hpf (<5); Urine Urobilinogen Normal (Negative); Urine WBC 12 /hpf (0 - 5)
[2024-09-04 14:51] LABS: Creatinine, Urine 148.33 mg/dL (30.0-125.0)
[2024-09-04 14:54] LABS: Protein, Urine 253.7 mg/dL (1-14)
--- NOTE | 2024-09-04 15:31 | DVHPN2 ---
Subjective The patient is intubated and sedated on Levophed drip Potassium is 5.4 Creatinine went up to 4.4 Sodium 132 White count is down to 30.7 Changes from previous H/P or p: Changes Eyes: No Pain, No Vision change, No Conjunctivae inflammation, No Eyelid inflammation, No Other, No Redness Cardiovascular: No Chest Pain, No Palpitations, No Orthopnea, No Paroxysmal Noc. Dyspnea, No Edema, No Lt Headedness, No Other Respiratory: Shortness of breath, SOB with excertion, Wheezing Gastrointestinal: No Nausea, No Vomiting, No Abdominal Pain, No Diarrhea, No Constipation, No Melena, No Hematochezia, No Other Genitourinary: No Dysuria, No Frequency, No Incontinence, No Hematuria, No Retention, No Other Musculoskeletal: No other, No neck pain, No shoulder pain, No arm pain, No back pain, No hand pain, No leg pain, No foot pain Skin: No Rash, No Lesions, No Jaundice, No Bruising, No Other Objective Vitals Vital Signs Date Time Temp Pulse Resp B/P (MAP) Pulse Ox O2 Delivery O2 Flow Rate FiO2 09/04/24 15:00 94 20 122/82 (95) 94 09/04/24 14:10 95 09/04/24 14:00 Mechanical Ventilator+ 09/04/24 12:00 99.1 99.1 09/03/24 11:17 10 Intake/Output Intake and Output 09/04/24 07:00 Intake Total 3772.549 ml Output Total 525 ml Balance 3247.549 ml Intake Oral 0 ml IV Total 3772.549 ml Output Urine Total 325 ml Gastric Drainage Total 200 ml General Appearance: Other Lungs: Other Abdomen: Soft Extremities: No edema Medications Current Medications Medications Dose Ordered Sig/[place] Route Start Time Stop Time Status Last Admin Dose Admin Midazolam HCl 50 ml @ 1 mls/hr Q24H IV 09/02/24 15:45 09/04/24 14:47 15 MLS/HR Fentanyl Citrate 250 ml @ 2.5 mls/hr Q24H IV 09/02/24 15:45 09/04/24 11:07 27.5 MLS/HR Propofol 100 ml @ 3.54 mls/hr Q24H IV 09/02/24 15:45 09/04/24 11:48 17.7 MLS/HR Vancomycin HCl 0 ml @ 0 mls/hr UD IV 09/02/24 18:30 Albuterol 2.5 mg Q4HWA PRN NEB 09/02/24 18:30 09/04/24 10:36 2.5 MG Ipratropium [place] 0.5 mg Q4HWA PRN NEB 09/02/24 18:30 09/04/24 10:36 0.5 MG Acetaminophen 650 mg Q4HP PRN GT 09/03/24 10:00 09/03/24 10:21 650 MG Norepinephrine Bitartrate 32 mg/ Sodium Chloride 250 ml @ 0.938 mls/ hr Q24H IV 09/03/24 12:30 09/04/24 11:10 8.438 MLS/HR Methylprednisolone Sodium Succinate 100 mg Q6HP IV 09/03/24 15:30 09/04/24 11:35 100 MG Vasopressin 20 units/Sodium Chloride 100 ml @ 9 mls/hr Q11H7M IV 09/03/24 15:30 Meropenem 50 ml @ 17 mls/hr Q12HR IV 09/03/24 22:00 09/04/24 09:51 17 MLS/HR Pantoprazole Sodium 40 mg DAILY IV 09/04/24 10:00 09/04/24 09:57 40 MG Sodium Chloride 1,000 ml @ 100 mls/hr Q10H IV 09/03/24 15:45 09/04/24 11:41 100 MLS/HR Laboratory Results Laboratory Tests 09/04/24 04:10 Chemistry Test 09/04/24 04:10 Albumin 3.8 g/dL (3.2-4.8) Calcium Level 8.8 mg/dL (8.7-10.4) Magnesium Level 2.3 mg/dL (1.6-2.6) Total Protein 6.8 g/dL (5.7-8.2) Coagulation Test 09/04/24 04:10 Prothrombin Time 12.8 sec (9.3-11.8) H Prothrombin Time INR 1.23 (0.9-1.15) H Activated Partial Thromboplast Time 30.2 SEC (24.5-34.5) Lipid panel Test 09/04/24 04:10 Cholesterol Level 145 mg/dL (< 200) HDL Cholesterol 10 mg/dL (40-59) L Lipase 26 U/L (12-53) Triglycerides Level 623 mg/dL (< 150) H LFT Test 09/04/24 04:10 Alanine Aminotransferase (ALT) 64 U/L (7-40) H Alkaline Phosphatase 166 U/L (46-116) H Aspartate Amino Transferase (AST) 200 U/L (13-40) H Total Bilirubin 0.8 mg/dL (0.2-1.0) HgA1c, TSH Test 09/04/24 04:10 Hemoglobin A1c 5.7 % A1C (<5.7) Thyroid Stimulating Hormone (TSH) 0.83 uIU/mL (0.55-4.78) Urinalysis Test 09/04/24 14:26 Urine Color Yellow (Yellow) Urine Clarity Turbid (Clear) H Urine pH 5.0 (5.0-9.0) Urine Specific [place] 1.021 (1.001-1.035) Urine Protein 2+ (Negative) H Urine Ketones Trace (Negative) Urine Blood 3+ /uL (Negative) H Urine Nitrite Negative (Negative) Urine Bilirubin Negative (Negative) Urine Urobilinogen Normal mg/dL (Negative) Urine Leukocyte Esterase Negative /uL (Negative) Urine RBC 8 /hpf (0 - 4) Urine WBC 12 /hpf (0 - 5) Urine Squamous Epithelial Cells Few /hpf (<5) Urine Amorphous Crystals Few /hpf (None Seen) Urine Bacteria Few /hpf (None Seen) H Urine Creatinine 148.33 mg/dL (30.0-125.0) H Urine Sodium 24 mmol/L (40-220) L Urine Glucose 1+ mg/dL (Normal) H Urine Total Protein 253.7 mg/dL (1-14) H Blood Gas Results Test 09/04/24 06:13 Arterial Blood pH 7.193 (7.350-7.450) FiO2 % 80.0 Microbiology Microbiology Date/Time Source Procedure Growth Status 09/02/24 17:44 Blood Blood Culture - Preliminary Resulted 09/02/24 16:00 Urine - [place] Urine Culture - Preliminary Resulted 09/02/24 15:35 Sputum Gram Stain - Final Resulted 09/02/24 15:35 Respiratory Culture - Preliminary Methicillin Resistant S.aureus Resulted Assessment/Plan Assessment/Plan Sepsis with septic shock FEDE Leukocytosis Acute hypoxic respiratory failure Pulmonary edema Rule out CHF Obesity Abdominal wall hernia Rule out Bowel Obstruction UTI HTN h/o Hernia Sx x4, last one [address] Li h/o kidney stones Tobacco dependence PLAN: Mechanical ventilation Vasopressors: Levophed, add Vasopressin Broad spectrum antibiotics: Meropenem and Vanco IV fluids Echo to rule out CHF Cardiology consult Nephrology consult Surgical consult ID consult Protonix Sedation as needed Full code Discussed with her son over the phone Advanced directives discussed with her son x 20 minutes 09/04/2024: Patient was made chemical code by family Gastrografin study was not tolerated so it was not diagnostic Echocardiogram showed ejection fraction 65% with mild diastolic dysfunction Continue IV antibiotics meropenem and vancomycin Continue IV fluids Septic shock with bacteremia with Gram-positive cocci in clusters and pairs: Continue vasopressors and IV steroids Acute on chronic kidney disease Morbid obesity Acute on chronic heart failure with preserved ejection fraction NSTEMI type 2 Acute hypoxic respiratory failure, mechanical ventilation Gallbladder ultrasound is pending Surgical consult, Dr. Ruiz is following Cardiology consult ID consult Chemical code Plan discussed with: Other My Orders Orders - DAO SORIANO MD Procedure Category Date Status Time Communication Order ORDERS 09/03/24 Transmitted 14:10 Methylprednisolone PHA 09/03/24 In Process Sod Succ (Solu Medrol 15:30 Sodium Chl 0.9% PHA 09/03/24 In Process (So... W/Vasopressin 15:30 * Surgical Consult CONS 09/03/24 Transmitted Meropenem 500mg Ivpb PHA 09/03/24 In Process (Merrem 500mg/Ns) 22:00 *Dr. Portillo [facility] CONS 09/03/24 Transmitted -[place] 15:38 * Infectious Gm- CONS 09/03/24 Transmitted [place] 15:39 Chest Portable XY 09/04/24 Resulted 06:00 Abg W/ Co-Ox RT 09/04/24 Logged 06:00 Pantoprazole PHA 09/04/24 In Process (Protonix) 10:00 Sodium Chloride 0.9% PHA 09/03/24 In Process 15:45 Apply: SIMRAN 09/04/24 In Process 13:53 Date of Service: Sep 04, 2024 Billing Provider: DAO SORIANO MD Common Visit Codes: [id number] CARE 30-74 MIN DAO SORIANO MD Sep 04, 2024 15:31
--- NOTE | 2024-09-04 15:48 | ECG ---
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
--- NOTE | 2024-09-04 16:04 | DVH ---
EXAM: US GALLBLADDER CLINICAL HISTORY: r/o cholelithiasis and/ or cholecystitis TECHNIQUE: Grayscale and limited color flow doppler ultrasound of the right upper quadrant is perfor med. COMPARISON: None Findings: Technically difficult exam due to patient's body habitus and ventilated. Liver measures 16.4 cm in length with increased echotexture and contour. No evidence of focal hepatic lesions or intra- or extrahepatic ductal dilatation. Common bile duct not visualized. Normal hepato pedal flow noted within the portal vein. No perihepatic free fluid is noted. Gallbladder wall thickness measuring 0.3 cm. There is pericholecystic free fluid and shadowing calcu li. No evidence of biliary sludge. Negative sonographic Flowers's sign. Pancreas not well-visualized due to overlying bowel gas. Right kidney measures 11.3 cm with normal contours, echotexture and cortical thickness. No evidence o f hydronephrosis, calculi, cystic or solid renal lesions. Partially visualized inferior vena cava unremarkable. Impression: 1. No evidence of acute right upper quadrant abnormalities. 2. Cholelithiasis with pericholecystic free fluid with a negative sonographic Flowers's sign. Findings are equivocal for acute cholecystitis. Consider further evaluation with a nuclear medicine hepatobil iary scan. 3. Borderline hepatomegaly with hepatic steatosis.
--- NOTE | 2024-09-04 20:40 | DVHPN2 ---
Progress Note - Dictate Date Seen: Sep 04, 2024 Medical Necessity Reason Pt with a Central, PICC or Fol: Yes The following are medically ne: Betancourt Catheter Reason for betancourt catheter: Strict I&O Subjective Patient was seen and evaluated in follow up in the ICU. Patient is chemically sedated and mechanically ventilated. FiO2 95%. WBC 30.7, PT 12.8, INR 1.23, NA 132, K 5.4, BUN 44, CANDY SP[employer] HELPER 4.48, AST 20, ALT 64. Small bowel x-ray initial ambulatory analyst view of the abdomen and pelvis demonstrates nonspecific bowel-gas pattern. Patient unable to tolerate exam. vital signs Vital Sign Date Time Temp Pulse Resp B/P (MAP) Pulse Ox O2 Delivery O2 Flow Rate FiO2 09/04/24 14:47 122/82 09/04/24 14:10 98 20 94 95 09/04/24 14:00 Mechanical Ventilator+ 09/04/24 12:00 99.1 99.1 09/03/24 11:17 10 Total Intake and Output 09/03/24 09/03/24 09/04/24 15:00 23:00 07:00 Intake Total 1033.030 ml 1351.729 ml 1387.790 ml Output Total 525 ml Balance 1033.030 ml 1351.729 ml 862.790 ml medications Current Medications Medications Dose Ordered Sig/[place]acia Route Start Time Stop Time Status Last Admin Dose Admin Midazolam HCl 50 ml @ 1 mls/hr Q24H IV 09/02/24 15:45 09/04/24 14:47 15 MLS/HR Fentanyl Citrate 250 ml @ 2.5 mls/hr Q24H IV 09/02/24 15:45 09/04/24 11:07 27.5 MLS/HR Propofol 100 ml @ 3.54 mls/hr Q24H IV 09/02/24 15:45 09/04/24 11:48 17.7 MLS/HR Vancomycin HCl 0 ml @ 0 mls/hr UD IV 09/02/24 18:30 Albuterol 2.5 mg Q4HWA PRN NEB 09/02/24 18:30 09/04/24 10:36 2.5 MG Ipratropium [place] 0.5 mg Q4HWA PRN NEB 09/02/24 18:30 09/04/24 10:36 0.5 MG Acetaminophen 650 mg Q4HP PRN GT 09/03/24 10:00 09/03/24 10:21 650 MG Norepinephrine Bitartrate 32 mg/ Sodium Chloride 250 ml @ 0.938 mls/ hr Q24H IV 09/03/24 12:30 09/04/24 11:10 8.438 MLS/HR Methylprednisolone Sodium Succinate 100 mg Q6HP IV 09/03/24 15:30 09/04/24 11:35 100 MG Vasopressin 20 units/Sodium Chloride 100 ml @ 9 mls/hr Q11H7M IV 09/03/24 15:30 Meropenem 50 ml @ 17 mls/hr Q12HR IV 09/03/24 22:00 09/04/24 09:51 17 MLS/HR Pantoprazole Sodium 40 mg DAILY IV 09/04/24 10:00 09/04/24 09:57 40 MG Sodium Chloride 1,000 ml @ 100 mls/hr Q10H IV 09/03/24 15:45 09/04/24 11:41 100 MLS/HR objective GENERAL: Intubated on ventilator. Morbidly obese LUNGS: Decreased breath sounds. CARDIOVASCULAR: Heart sounds are good. ABDOMEN: Soft. Morbid pannus limited physical palpation. SKIN: Multiple scars to abdomen. Two open areas on abdomen with oozing wounds. laboratory and microbiology Laboratory Tests 09/04/24 04:10 Test 09/04/24 04:10 Range/Units Serum Glucose 192 H 74-106 mg/dL Problem List Septic shock. Acute on chronic respiratory failure. NSTEMI type II secondary to above. Rule out structural heart disease. Prolonged QT interval. Morbid obesity, Class 3. Assessment/Plan Continued all current supportive medical care. Patient has been seen by Hyacinth Lee on my behalf, her and I discussed the plan with the patient. Transthoracic echocardiogram reveals EF 65%. We will recommend to continue vasopressors for hemodynamic support at this time and we will change the strength to Quad concentration to prevent fluid overload. We will also recommend to avoid medications that prolong QT interval as patient came in with a prolonged QT interval and is at risk for going into torsades de pointes. Repeat twelve lead electrocardiogram on 09/04/2024 reveals improvement in QTc interval, now less than 500. Abdomen CT reveals a suspected bowel obstruction. Surgical consult and recommendations. Antibiotics per primary care team. Additional plan as per the hospital course. Critical care time of 45 minutes provided to include time spent evaluation of patient at bedside, when appropriate patient/family education for diagnosis, treatment plan, review of pertinent medical information and discussion of care with specialty providers and PCP. Mechanical ventilator parameters, treatment and adjustments have personally been reviewed by me and treatment plan by wildlife refuge specialist has also been reviewed. Plan discussed with: Other RELL STEWART MD Sep 04, 2024 15:08
--- NOTE | 2024-09-04 21:55 | DVHPN2 ---
Progress Note - Dictate Date Seen: Sep 04, 2024 Medical Necessity Reason Pt with a Central, PICC or Fol: Yes The following are medically ne: Betancourt Catheter Reason for betancourt catheter: Strict I&O Subjective Patient seen and examined at bedside. Sedated, intubated on mechanical ventilator. Overnight events reviewed. vital signs Vital Sign Date Time Temp Pulse Resp B/P (MAP) Pulse Ox O2 Delivery O2 Flow Rate FiO2 09/04/24 21:17 120/74 09/04/24 20:08 95 20 95 100 09/04/24 19:00 98.1 98.1 09/04/24 18:00 Mechanical Ventilator+ 09/03/24 11:17 10 Total Intake and Output 09/04/24 09/04/24 09/04/24 01:30 09:30 17:30 Intake Total 1466.979 ml 1363.164 ml 2103.555 ml Output Total 525 ml 275 ml Balance 1466.979 ml 838.164 ml 1828.555 ml medications Current Medications Medications Dose Ordered Sig/[place] Route Start Time Stop Time Status Last Admin Dose Admin Midazolam HCl 50 ml @ 1 mls/hr Q24H IV 09/02/24 15:45 09/04/24 21:17 15 MLS/HR Fentanyl Citrate 250 ml @ 2.5 mls/hr Q24H IV 09/02/24 15:45 09/04/24 11:07 27.5 MLS/HR Propofol 100 ml @ 3.54 mls/hr Q24H IV 09/02/24 15:45 09/04/24 15:42 24.78 MLS/HR Vancomycin HCl 0 ml @ 0 mls/hr UD IV 09/02/24 18:30 Albuterol 2.5 mg Q4HWA PRN NEB 09/02/24 18:30 09/04/24 16:25 2.5 MG Ipratropium [place] 0.5 mg Q4HWA PRN NEB 09/02/24 18:30 09/04/24 16:25 0.5 MG Acetaminophen 650 mg Q4HP PRN GT 09/03/24 10:00 09/03/24 10:21 650 MG Norepinephrine Bitartrate 32 mg/ Sodium Chloride 250 ml @ 0.938 mls/ hr Q24H IV 09/03/24 12:30 09/04/24 11:10 8.438 MLS/HR Methylprednisolone Sodium Succinate 100 mg Q6HP IV 09/03/24 15:30 09/04/24 17:45 100 MG Vasopressin 20 units/Sodium Chloride 100 ml @ 9 mls/hr Q11H7M IV 09/03/24 15:30 Meropenem 50 ml @ 17 mls/hr Q12HR IV 09/03/24 22:00 09/04/24 09:51 17 MLS/HR Pantoprazole Sodium 40 mg DAILY IV 09/04/24 10:00 09/04/24 09:57 40 MG Sodium Chloride 1,000 ml @ 100 mls/hr Q10H IV 09/03/24 15:45 09/04/24 11:41 100 MLS/HR objective Gen.: Patient lying in bed in medical ICU. Sedated, intubated on mechanical ventilator. Head: Normocephalic, atraumatic. Eyes: PERRLA. Ears: Normal external anatomy. Throat: Endotracheal tube and orogastric tube in place. Neck: Supple, trachea midline. Chest: Transmitted breath sounds bilaterally. Decreased air entry bilaterally. No wheezing. Bibasilar crackles. Cardio vascular: Positive S1, positive S2. Regular rate and rhythm. Abdomen: Positive bowel sounds in all 4 quadrants. Soft, nontender, nondistended. : Betancourt in place. Normal external genitalia. Rectal: Deferred Skin: Warm, dry. Intact. Extremities: 2+ radial pulses bilaterally. No lower extremity edema. Neuro: Sedated. laboratory and microbiology Laboratory Tests 09/04/24 04:10 Test 09/04/24 04:10 Range/Units Serum Glucose 192 H 74-106 mg/dL Assessment/Plan Impression: Acute on chronic hypoxic respiratory failure On mechanical ventilator Pulmonary edema Pleural effusion, left Atelectasis Leukocytosis Lactic acidosis Morbid obesity, BMI 40 Events: Remains on vent support On pressure control with a respiratory rate of 20, inspiratory pressure of 18, I-time of 0.9 seconds, peep of 12, FiO2 at 100%. FiO2 improved to 80% ABG notable for acidemia d/t metabolic and respiratory acidosis. CXR demonstrated bilateral pleural effusion/atelectasis; mild pulmonary vascular congestion. Sedated on Propofol, Versed, Fentanyl. On pressors for hemodynamic support Levophed 30 mcg/min Titrate to keep mean arterial pressure greater than 65 mmHg. Continue antibiotics - meropenem, vancomycin. WBC trended down to 30.7 Patient remains in critical condition, not tolerating turns. Continue permissive hypercarbia. Continue to monitor respiratory status closely. Labs and imaging reviewed. Rest of plan as noted below. Plan: s/p intubation on mechanical ventilator CXR image and report reviewed. Devices in place. Pulmonary edema. Small left pleural effusion. Atelectasis. ABG reviewed. Alkalemia due to respiratory alkalosis, hypoxemia PaO2 40.4 mmHg On pressure control with a respiratory rate of 20, inspiratory pressure of 18, I-time of 0.9 seconds, peep of 12, FiO2 at 80%. Titrate FIO2 to keep O2 saturation above 92%. VAP bundle Daily ABG and CXR while intubated. Sedate for ventilatory synchrony Bronchodilators On pressors for hemodynamic support. Titrate to keep MAP above 65 mmHg/SBP above 90 mmHg. Continue antibiotics. F/u cultures. Elevated WBC Monitor renal function Monitor ins/outs. Monitor electrolytes. Supplement as necessary. Monitor lactic acid On IVF Nutritional support. Accucheks, ISS. GI/DVT prophylaxis. Condition: Critical Prognosis: Poor given multiple comorbidities. Rest of plan per hospitalist and other consultants. A total of 35 minutes of critical care time was spent reviewing the patient record, examining the patient, making a diagnostic and therapeutic plan, discussing this plan with the medical personnel, following up on diagnostic studies and following the patient for clinical stability excluding any and all procedures. At least 50% of this time was spent in direct, [id number] contact. Thank you Dr. Banda for allowing me to participate in this patient's care. Further recommendations will depend on patient's clinical course. Please do not hesitate to contact me if you have any questions or concerns. This medical document was created using an electronic medical record system with [employer] system. Although this document has been carefully reviewed, there may still be some phonetic and typographical errors. These areas are purely typographical due to imperfections of the software programs, and do not reflect any compromise in the patient's medical care. Plan discussed with: Other (DEIDRE Jo) Critical Care Time(min): 35 SHAI SINGH MD Sep 04, 2024 21:55
[2024-09-05] VITALS (106 sets, daily range): BP systolic 84–138; BP diastolic 43–80; PULSE 81–104; RESP 18–26; TEMP 97.9–98.8; O2SAT 89–100
[2024-09-05 03:52] LABS: Hematocrit 44.9 % (36.0-46.0); Mean Corpuscular Hemoglobin 30.2 pg (28.0-32.0); Mean Corpuscular Hgb Conc. 33.4 g/dL (32.0-36.0); Mean Corpuscular Volume 90.3 fL (80.0-100.0); Platelet Count (auto) 247 10^3/uL (140-450); Red Blood Cells 4.97 10^6/uL (4.0-5.20); Red Cell Distribution Width 14.3 % (11.8-14.3); White Blood Cell 25.6 10^3/uL (4.4-10.8)
[2024-09-05 03:58] LABS: Alanine Aminotransferase 105 U/L (7-40); Albumin 3.9 g/dL (3.2-4.8); Alkaline Phosphatase 164 U/L (46-116); Anion Gap 13 (5-15); Aspartate Aminotransferase 368 U/L (13-40); BUN/Creatinine Ratio 12.5 (10.0-20.0); Calcium 8.4 mg/dL (8.7-10.4); Carbon Dioxide 18 mmol/L (20-31); Chloride 102 mmol/L (98-107); Glucose 143 mg/dL (74-106); Magnesium 2.5 mg/dL (1.6-2.6); Sodium 133 mmol/L (136-145); Uric Acid 9.8 mg/dL (3.1-7.8)
[2024-09-05 03:59] LABS: Bilirubin, Total 0.7 mg/dL (0.2-1.0); Phosphorus 9.8 mg/dL (2.4-5.1); Total Protein 6.6 g/dL (5.7-8.2)
[2024-09-05 04:19] LABS: Blood Urea Nitrogen 68 mg/dL (9-23); Potassium 6.8 mmol/L (3.5-5.1)
[2024-09-05 04:30] LABS: Basophils % (manual) 0 (0.0-2.0); Blast Cells 0; Eosinophils % (manual) 0 (0-7); Metamyelocytes % 0; Monocytes % (manual) 0 (0-12); Myelocytes % 0; Promyelocytes % 0; Reactive Lymphocytes 0
[2024-09-05 05:05] LABS: Band Neutrophils % (manual) 31; Lymphocytes % (manual) 14 (10.0-50.0); Platelet Estimate Adequate
[2024-09-05] MEDS: CALCIUM GLUC 1,000mg/50ml-NS 50 ML IV ONE (05:27)
--- NOTE | 2024-09-05 05:28 | DVH ---
CHEST RADIOGRAPH Indication: vent Technique: Single frontal view of the chest was obtained COMPARISON: XY CHEST PORTABLE on DOS: 09/04/24, XY CHEST PORTABLE on DOS: 09/02/24 FINDINGS: Lines and Tubes: Endotracheal tube, enteric catheter and right central venous catheter in satisfactor y position. Lungs: Pulmonary vascular congestion. Pleura: No effusion. No pneumothorax. Cardiomediastinal contours: Unremarkable Bones: Unremarkable IMPRESSION: Lines and tubes in satisfactory position. No significant interval change.
[2024-09-05] MEDS: InsuLIN REG 1unit/0.01ml Soln (100units/ml) IV ONE (05:29)
[2024-09-05] MEDS: SODIUM BICARB 8.4% 50Meq/50ml SYR INJ IV ONE (05:30)
[2024-09-05] MEDS: DEXTROSE (50%) 50ML SYRG IV ONE (05:30)
[2024-09-05 07:25] LABS: Base Excess -11.7 mmol/L (-2.0-3.0)
[2024-09-05 09:30] LABS: Base Excess -10.1 mmol/L (-2.0-3.0)
--- NOTE | 2024-09-05 09:54 | DVHPN2 ---
Progress Note Date Seen: Sep 05, 2024 Medical Necessity Reason Pt with a Central, PICC or Fol: Yes The following are medically ne: Betancourt Catheter Reason for betancourt catheter: Strict I&O Objective vital signs Vital Sign Date Time Temp Pulse Resp B/P (MAP) Pulse Ox O2 Delivery O2 Flow Rate FiO2 09/05/24 08:45 98.2 87 26 99/59 (72) 97 208.8 09/05/24 08:00 Mechanical Ventilator+ 80 80 09/03/24 11:17 10 Total Intake and Output 09/04/24 09/04/24 09/05/24 15:00 23:00 07:00 Intake Total 2102.520 ml 1349.493 ml 1341.054 ml Output Total 275 ml 50 ml Balance 2102.520 ml 1074.493 ml 1291.054 ml medications Current Medications Medications Dose Ordered Sig/[place] Route Start Time Stop Time Status Last Admin Dose Admin Midazolam HCl 50 ml @ 1 mls/hr Q24H IV 09/02/24 15:45 09/05/24 07:54 15 MLS/HR Fentanyl Citrate 250 ml @ 2.5 mls/hr Q24H IV 09/02/24 15:45 09/05/24 04:38 27.5 MLS/HR Propofol 100 ml @ 3.54 mls/hr Q24H IV 09/02/24 15:45 09/05/24 06:02 24.78 MLS/HR Vancomycin HCl 0 ml @ 0 mls/hr UD IV 09/02/24 18:30 Albuterol 2.5 mg Q4HWA PRN NEB 09/02/24 18:30 09/05/24 06:30 2.5 MG Ipratropium [place] 0.5 mg Q4HWA PRN NEB 09/02/24 18:30 09/05/24 06:30 0.5 MG Acetaminophen 650 mg Q4HP PRN GT 09/03/24 10:00 09/03/24 10:21 650 MG Norepinephrine Bitartrate 32 mg/ Sodium Chloride 250 ml @ 0.938 mls/ hr Q24H IV 09/03/24 12:30 09/04/24 11:10 8.438 MLS/HR Methylprednisolone Sodium Succinate 100 mg Q6HP IV 09/03/24 15:30 09/05/24 05:34 100 MG Vasopressin 20 units/Sodium Chloride 100 ml @ 9 mls/hr Q11H7M IV 09/03/24 15:30 Meropenem 50 ml @ 17 mls/hr Q12HR IV 09/03/24 22:00 09/04/24 22:44 17 MLS/HR Pantoprazole Sodium 40 mg DAILY IV 09/04/24 10:00 09/04/24 09:57 40 MG Sodium Chloride 1,000 ml @ 100 mls/hr Q10H IV 09/03/24 15:45 09/04/24 23:24 100 MLS/HR laboratory and microbiology Laboratory Tests 09/05/24 03:20 Test 09/05/24 03:20 Range/Units Serum Glucose 143 H 74-106 mg/dL Problem List/Assessment/Plan Problem List/Assessment/Plan 09/05/24 REMAINS INTUBATED AND SEDATED, ABDOMEN SOFT, NON DISTENDED, NO GUARDING, TWO SMALL GRANULATING WOUNDS ON ABDOMINAL WOUND ARE SUTURE GRANULOMAS, i HAVE REMOVED THE SUTURES, THE WOUNDS CAN BE WASHED VIGOROUSLY TO REMOVE SCABS, NO FURTHER SURGICAL INTERVENTION NEEDED Plan discussed with: JUNI Villa MD Sep 05, 2024 09:54
--- NOTE | 2024-09-05 10:58 | DVHPN2 ---
Subjective She is off Vasopressors Sedated and intubated 80% FiO2 and 12 of PEEP Potassium is high at 6.8 and creatinine is worse at 5.4, CO2 18 White count is better 25 Changes from previous H/P or p: Changes Eyes: No Pain, No Vision change, No Conjunctivae inflammation, No Eyelid inflammation, No Other, No Redness Cardiovascular: No Chest Pain, No Palpitations, No Orthopnea, No Paroxysmal Noc. Dyspnea, No Edema, No Lt Headedness, No Other Respiratory: Shortness of breath, SOB with excertion, Wheezing Gastrointestinal: No Nausea, No Vomiting, No Abdominal Pain, No Diarrhea, No Constipation, No Melena, No Hematochezia, No Other Genitourinary: No Dysuria, No Frequency, No Incontinence, No Hematuria, No Retention, No Other Musculoskeletal: No other, No neck pain, No shoulder pain, No arm pain, No back pain, No hand pain, No leg pain, No foot pain Skin: No Rash, No Lesions, No Jaundice, No Bruising, No Other Objective Vitals Vital Signs Date Time Temp Pulse Resp B/P (MAP) Pulse Ox O2 Delivery O2 Flow Rate FiO2 09/05/24 10:00 87 26 104/60 (75) 97 80 09/05/24 08:45 98.2 208.8 09/05/24 08:00 Mechanical Ventilator+ 09/03/24 11:17 10 Intake/Output Intake and Output 09/05/24 07:00 Intake Total 4793.067 ml Output Total 325 ml Balance 4468.067 ml Intake Oral 0 ml IV Total 4793.067 ml Output Urine Total 175 ml Gastric Drainage Total 150 ml General Appearance: Other Lungs: Other Abdomen: Soft Extremities: No edema Medications Current Medications Medications Dose Ordered Sig/[place] Route Start Time Stop Time Status Last Admin Dose Admin Midazolam HCl 50 ml @ 1 mls/hr Q24H IV 09/02/24 15:45 09/05/24 07:54 15 MLS/HR Fentanyl Citrate 250 ml @ 2.5 mls/hr Q24H IV 09/02/24 15:45 09/05/24 04:38 27.5 MLS/HR Propofol 100 ml @ 3.54 mls/hr Q24H IV 09/02/24 15:45 09/05/24 10:29 24.78 MLS/HR Vancomycin HCl 0 ml @ 0 mls/hr UD IV 09/02/24 18:30 Albuterol 2.5 mg Q4HWA PRN NEB 09/02/24 18:30 09/05/24 06:30 2.5 MG Ipratropium [place] 0.5 mg Q4HWA PRN NEB 09/02/24 18:30 09/05/24 06:30 0.5 MG Acetaminophen 650 mg Q4HP PRN GT 09/03/24 10:00 09/03/24 10:21 650 MG Norepinephrine Bitartrate 32 mg/ Sodium Chloride 250 ml @ 0.938 mls/ hr Q24H IV 09/03/24 12:30 09/04/24 11:10 8.438 MLS/HR Methylprednisolone Sodium Succinate 100 mg Q6HP IV 09/03/24 15:30 09/05/24 05:34 100 MG Vasopressin 20 units/Sodium Chloride 100 ml @ 9 mls/hr Q11H7M IV 09/03/24 15:30 Meropenem 50 ml @ 17 mls/hr Q12HR IV 09/03/24 22:00 09/05/24 10:28 17 MLS/HR Pantoprazole Sodium 40 mg DAILY IV 09/04/24 10:00 09/05/24 10:28 40 MG Sodium Chloride 1,000 ml @ 100 mls/hr Q10H IV 09/03/24 15:45 09/05/24 10:28 100 MLS/HR Laboratory Results Laboratory Tests 09/05/24 03:20 Chemistry Test 09/05/24 03:20 Albumin 3.9 g/dL (3.2-4.8) Calcium Level 8.4 mg/dL (8.7-10.4) L Magnesium Level 2.5 mg/dL (1.6-2.6) Phosphorus Level 9.8 mg/dL (2.4-5.1) H Total Protein 6.6 g/dL (5.7-8.2) LFT Test 09/05/24 03:20 Alanine Aminotransferase (ALT) 105 U/L (7-40) H Alkaline Phosphatase 164 U/L (46-116) H Aspartate Amino Transferase (AST) 368 U/L (13-40) H Total Bilirubin 0.7 mg/dL (0.2-1.0) Urinalysis Test 09/04/24 14:26 Urine Color Yellow (Yellow) Urine Clarity Turbid (Clear) H Urine pH 5.0 (5.0-9.0) Urine Specific [place] 1.021 (1.001-1.035) Urine Protein 2+ (Negative) H Urine Ketones Trace (Negative) Urine Blood 3+ /uL (Negative) H Urine Nitrite Negative (Negative) Urine Bilirubin Negative (Negative) Urine Urobilinogen Normal mg/dL (Negative) Urine Leukocyte Esterase Negative /uL (Negative) Urine RBC 8 /hpf (0 - 4) Urine WBC 12 /hpf (0 - 5) Urine Squamous Epithelial Cells Few /hpf (<5) Urine Amorphous Crystals Few /hpf (None Seen) Urine Bacteria Few /hpf (None Seen) H Urine Creatinine 148.33 mg/dL (30.0-125.0) H Urine Sodium 24 mmol/L (40-220) L Urine Glucose 1+ mg/dL (Normal) H Urine Total Protein 253.7 mg/dL (1-14) H Blood Gas Results Test 09/05/24 07:04 09/05/24 09:16 Arterial Blood pH 7.097 (7.350-7.450) 7.174 (7.350-7.450) FiO2 % 80.0 80.0 Microbiology Microbiology Date/Time Source Procedure Growth Status 09/02/24 17:44 Blood Blood Culture - Preliminary Resulted 09/02/24 16:00 Urine - [place] Urine Culture - Preliminary Resulted 09/02/24 15:35 Sputum Gram Stain - Final Resulted 09/02/24 15:35 Respiratory Culture - Preliminary Methicillin Resistant S.aureus Resulted Assessment/Plan Assessment/Plan Sepsis with septic shock FEDE Leukocytosis Acute hypoxic respiratory failure Pulmonary edema Rule out CHF Obesity Abdominal wall hernia Rule out Bowel Obstruction UTI HTN h/o Hernia Sx x4, last one [address] Li h/o kidney stones Tobacco dependence PLAN: Mechanical ventilation Vasopressors: Levophed, add Vasopressin Broad spectrum antibiotics: Meropenem and Vanco IV fluids Echo to rule out CHF Cardiology consult Nephrology consult Surgical consult ID consult Protonix Sedation as needed Full code Discussed with her son over the phone Advanced directives discussed with her son x 20 minutes 09/04/2024: Patient was made chemical code by family Gastrografin study was not tolerated so it was not diagnostic Echocardiogram showed ejection fraction 65% with mild diastolic dysfunction Continue IV antibiotics meropenem and vancomycin Continue IV fluids Septic shock with bacteremia with Gram-positive cocci in clusters and pairs: Continue vasopressors and IV steroids Acute on chronic kidney disease Morbid obesity Acute on chronic heart failure with preserved ejection fraction NSTEMI type 2 Acute hypoxic respiratory failure, mechanical ventilation Gallbladder ultrasound is pending Surgical consult, Dr. Ruiz is following Cardiology consult ID consult Chemical code 09/05/2024: Sepsis: Continue IV antibiotics meropenem and vancomycin Acute kidney injury, continue IV fluids, nephrology consult Septic shock: Improved, off the norepinephrine now, continue IV steroid Rule out bowel obstruction: Bowel series was not tolerated so was not diagnostic, surgery is following Acute hypoxic respiratory failure: Continue mechanical ventilation Pulmonary edema and pleural effusion: Lactic acidosis Morbid obesity History of multiple abdominal surgeries Chemical code Plan discussed with: Other My Orders Orders - DAO SORIANO MD Procedure Category Date Status Time Apply: SIMRAN 09/04/24 In Process 13:53 Chest Portable XY 09/05/24 Resulted 06:00 Abg W/ Co-Ox RT 09/05/24 Logged 06:00 Mrsa Screen MOISES 09/05/24 In Process 02:58 Date of Service: Sep 05, 2024 Billing Provider: DAO SORIANO MD Common Visit Codes: [id number] CARE 30-74 MIN DAO SORIANO MD Sep 05, 2024 10:58
--- NOTE | 2024-09-05 11:43 | DVHPN2 ---
Progress Note - Dictate Date Seen: Sep 05, 2024 Medical Necessity Reason Pt with a Central, PICC or Fol: Yes The following are medically ne: Betancourt Catheter Reason for betancourt catheter: Strict I&O Subjective Patient is seen and evaluated. Pt is sedated and intubated. on mechanical ventilation FIO2 85% and PEEP 12 White count is slightly better 25; off pressors Potassium is high at 6.8 and creatinine is worse at 5.4, CO2 18 09/05 chest x-ray : reviewed unremarkable 09/04 : gall bladder US reviewed vital signs Vital Sign Date Time Temp Pulse Resp B/P (MAP) Pulse Ox O2 Delivery O2 Flow Rate FiO2 09/05/24 10:00 87 26 104/60 (75) 97 80 09/05/24 08:45 98.2 208.8 09/05/24 08:00 Mechanical Ventilator+ 09/03/24 11:17 10 Total Intake and Output 09/04/24 09/04/24 09/05/24 14:59 22:59 06:59 Intake Total 2101.065 ml 1352.305 ml 1341.992 ml Output Total 275 ml 50 ml Balance 2101.065 ml 1077.305 ml 1291.992 ml medications Current Medications Medications Dose Ordered Sig/Acacia Route Start Time Stop Time Status Last Admin Dose Admin Midazolam HCl 50 ml @ 1 mls/hr Q24H IV 09/02/24 15:45 09/05/24 07:54 15 MLS/HR Fentanyl Citrate 250 ml @ 2.5 mls/hr Q24H IV 09/02/24 15:45 09/05/24 04:38 27.5 MLS/HR Propofol 100 ml @ 3.54 mls/hr Q24H IV 09/02/24 15:45 09/05/24 10:29 24.78 MLS/HR Vancomycin HCl 0 ml @ 0 mls/hr UD IV 09/02/24 18:30 Albuterol 2.5 mg Q4HWA PRN NEB 09/02/24 18:30 09/05/24 06:30 2.5 MG Ipratropium [place] 0.5 mg Q4HWA PRN NEB 09/02/24 18:30 09/05/24 06:30 0.5 MG Acetaminophen 650 mg Q4HP PRN GT 09/03/24 10:00 09/03/24 10:21 650 MG Norepinephrine Bitartrate 32 mg/ Sodium Chloride 250 ml @ 0.938 mls/ hr Q24H IV 09/03/24 12:30 09/04/24 11:10 8.438 MLS/HR Methylprednisolone Sodium Succinate 100 mg Q6HP IV 09/03/24 15:30 09/05/24 05:34 100 MG Vasopressin 20 units/Sodium Chloride 100 ml @ 9 mls/hr Q11H7M IV 09/03/24 15:30 Meropenem 50 ml @ 17 mls/hr Q12HR IV 09/03/24 22:00 09/05/24 10:28 17 MLS/HR Pantoprazole Sodium 40 mg DAILY IV 09/04/24 10:00 09/05/24 10:28 40 MG Sodium Chloride 1,000 ml @ 100 mls/hr Q10H IV 09/03/24 15:45 09/05/24 10:28 100 MLS/HR objective General intubated and sedated HEENT: Atraumatic,intubated Neck: No swelling Lungs: Equal air entry and clear to auscultation Cardiovascular: S1 S2 heard no murmur Abdomen: Soft nontender, no organomegaly, nondistended Neuro: sedated, unable to assess Psych: unable to assess laboratory and microbiology Laboratory Tests 09/05/24 03:20 Test 09/05/24 03:20 Range/Units Serum Glucose 143 H 74-106 mg/dL Assessment/Plan Patient is a 63-year-old female presented to the hospital with: Staphylococcus aureus pneumonia ( MRSA) Streptococcus Pneumoniae pneumonia Septic shock bacteremia : coag neg staphylococccus Acute Respiratory Failure [requiring mechanical ventilation] severe hypoxia Metabolic acidosis FEDE Morbidly obese BMI = 40 PE history Recommendations: cont IV Vancomycin and switch Meropenem to IV Cefepime repeat 2 sets of blood cx, Pulmonary Consulted for vent management Blood culture: Positive for Cocci in clusters: co ag neg staph, i think its contaminated Sputum culture: Positive for Staphylococcus aureus nephrology is on board possible plan for HD follow cultures and senstivity Chemical code prognosis very poor crit time 35 mins spent during the encounter. Thank you for consult and for giving an opportunity to take care of this patient. Dietary Evaluation Review Comments: 1. Consider EN/TPN if NPO >7days 2. Continue plan of care Expected Outcomes/Goals: 1. Pt will meet >75% of estimated needs within 2-3 days Plan discussed with: Other ANGELLA REYES MD Sep 05, 2024 11:43
[2024-09-05] MEDS ORDERED: CEFEPIME 1GM/ 50ML 50 ML IV SCH (14:00)
--- NOTE | 2024-09-05 14:37 | DVHPN2 ---
Progress Note - Dictate Date Seen: Sep 05, 2024 Medical Necessity Reason Pt with a Central, PICC or Fol: Yes The following are medically ne: Bet[place]orut Catheter Reason for betancourt catheter: Strict I&O Subjective remains oliguric vital signs Vital Sign Date Time Temp Pulse Resp B/P (MAP) Pulse Ox O2 Delivery O2 Flow Rate FiO2 09/05/24 13:33 84 26 104/57 (73) 94 75 09/05/24 08:45 98.2 208.8 09/05/24 08:00 Mechanical Ventilator+ 09/03/24 11:17 10 Total Intake and Output 09/04/24 09/04/24 09/05/24 15:00 23:00 07:00 Intake Total 2102.520 ml 1349.493 ml 1341.054 ml Output Total 275 ml 50 ml Balance 2102.520 ml 1074.493 ml 1291.054 ml medications Current Medications Medications Dose Ordered Sig/Acacia Route Start Time Stop Time Status Last Admin Dose Admin Midazolam HCl 50 ml @ 1 mls/hr Q24H IV 09/02/24 15:45 09/05/24 12:36 10 MLS/HR Fentanyl Citrate 250 ml @ 2.5 mls/hr Q24H IV 09/02/24 15:45 09/05/24 12:32 25 MLS/HR Propofol 100 ml @ 3.54 mls/hr Q24H IV 09/02/24 15:45 09/05/24 12:36 24.78 MLS/HR Vancomycin HCl 0 ml @ 0 mls/hr UD IV 09/02/24 18:30 Albuterol 2.5 mg Q4HWA PRN NEB 09/02/24 18:30 09/05/24 06:30 2.5 MG Ipratropium [place] 0.5 mg Q4HWA PRN NEB 09/02/24 18:30 09/05/24 06:30 0.5 MG Acetaminophen 650 mg Q4HP PRN GT 09/03/24 10:00 09/03/24 10:21 650 MG Norepinephrine Bitartrate 32 mg/ Sodium Chloride 250 ml @ 0.938 mls/ hr Q24H IV 09/03/24 12:30 09/04/24 11:10 8.438 MLS/HR Methylprednisolone Sodium Succinate 100 mg Q6HP IV 09/03/24 15:30 09/05/24 12:36 100 MG Vasopressin 20 units/Sodium Chloride 100 ml @ 9 mls/hr Q11H7M IV 09/03/24 15:30 Pantoprazole Sodium 40 mg DAILY IV 09/04/24 10:00 09/05/24 10:28 40 MG Sodium Chloride 1,000 ml @ 100 mls/hr Q10H IV 09/03/24 15:45 09/05/24 10:28 100 MLS/HR Cefepime HCl 50 ml @ 12.5 mls/hr DAILY IV 09/05/24 14:00 objective gen: intubated lungs: occ ronchi cvs: no rub ext: no sigifnicant edema laboratory and microbiology Laboratory Tests 09/05/24 03:20 Test 09/05/24 14:04 Range/Units Serum Glucose Pending Assessment/Plan IMP: 1) Hemodynamically mediated FEDE/VMN setting of shock 2) CKD stage IIIA? 3) shock with multiorgan involvement 4) history of PE 5) leukocytosis 6) bacteremia REC: - discussed at length with patient's daughter who is an emergency medical scribe regarding Current clinical state and likely need to initiate renal replacement therapy. - Patient's daughter expressed understanding and agreed to initiation of dialysis if needed. - repeat urine Na - We will check CPK to eval for rhabdomyolysis given elevated phosphorus and uric acid. Dietary Evaluation Review Comments: 1. Consider EN/TPN if NPO >7days 2. Continue plan of care Expected Outcomes/Goals: 1. Pt will meet >75% of estimated needs within 2-3 days Plan discussed with: Daughter PERICO CASAREZ MD Sep 05, 2024 14:37
[2024-09-05 14:42] LABS: Chloride 103 mmol/L (98-107); Sodium 134 mmol/L (136-145)
[2024-09-05 14:43] LABS: Anion Gap 16 (5-15); Carbon Dioxide 15 mmol/L (20-31)
[2024-09-05 14:48] LABS: BUN/Creatinine Ratio 11.2 (10.0-20.0); Blood Urea Nitrogen 69 mg/dL (9-23); Glucose 134 mg/dL (74-106)
[2024-09-05 15:06] LABS: Potassium 5.9 mmol/L (3.5-5.1)
[2024-09-05] MEDS: SODIUM BICARB 8.4% 50Meq/50ml SYR Vial IV ONE ×2 (16:05)
[2024-09-05] MEDS: SODIUM BICARB 50mEq/50ml Vial 150 ML in D5W 5% 1,000 ML IV SCH (16:06)
[2024-09-05] MEDS: CEFEPIME 1GM/ 50ML 50 ML IV SCH (16:06)
--- NOTE | 2024-09-05 16:33 | DVHNC2 ---
Procedure - ULTRASOUND-GUIDED RIGHT SUBCLAVIAN CENTRAL VENOUS CANNULATION CPT Codes: 25453 (ultrasound guidance) 84695 (insertion of non-tunneled centrally inserted central venous catheter) 56512 (CXR interpretation) DATE: 09/05/2024 PHYSICIAN: Shai Luis PREOPERATIVE DIAGNOSIS: Need of venous access for hemodialysis POSTOPERATIVE DIAGNOSIS: Need of venous access for hemodialysis PROCEDURE PERFORMED: Limited Ultrasound-guided RIGHT SUBCLAVIAN jugular central line placement. ANESTHESIA: 2 mL of 1% lidocaine plain. ESTIMATED BLOOD LOSS: less than 5 mL. SPECIMENS: None. COMPLICATIONS: None. INDICATIONS FOR PROCEDURE: The patient is in need of large bore IV access for administration of fluids, including blood products and vasoactive drugs, possible transvenous cardiac pacing and CVP monitoring for hemodynamic instability. DESCRIPTION OF PROCEDURE IN DETAIL: The patient was lying in the Trendelenburg position with head turned 30 degrees away from the insertion site. The skin was thoroughly sponged with chlorhexidine and allowed to dry. All persons involved were shielded with hair nets, face masks and sterile gowns. With sterile-gloved hands the right neck area was draped with the large disposable sterile field provided in the pre-manufactured kit. The skin and subcutaneous tissues superficial to the RIGHT SUBCLAVIAN vein were anesthetized with 2 mL of 1% lidocaine. The RIGHT SUBCLAVIAN vein was identified on ultrasound using the linear ultrasound probe in the transverse orientation. The subclavian artery was identified and avoided utilizing color-flow. The subclavian vein was then placed in the center of the ultrasound field and compressed for patency. A movement artifact was identified as the needle was advanced through the skin and advanced toward the vessel. A real time hyperechoic signal revealed visualization of vascular needle entry into the lumen as blood was noted to flashback in the syringe. The needle was then held in place while the guide wire was advanced. The needle was then removed. Direct visualization of guide wire location within the vein was noted on ultrasound indicating proper placement and was document in the electronic medical record chart. A skin dilator was advanced over the guidewire and removed, and the triple-lumen catheter was then advanced over the guide wire into proper position. The guide wire was removed and discarded. The ports were aspirated which showed good blood return and then carefully flushed with normal saline. The catheter was stabilized and sutured to the skin with 2-0 silk at 2 anchor points. A sterile bio-patch and dressing was placed over the catheter, including the insertion site. The patient tolerated the procedure well. A chest x-ray was ordered for position confirmation. I reviewed the image immediately after it was taken at bedside. Post-procedure chest x-ray demonstrates the central line in the superior vena and no evidence of any pneumothorax. An image recording of the procedure accompanies the chart. SHAI LUIS MD Sep 05, 2024 16:33
--- NOTE | 2024-09-05 17:29 | DVH ---
CHEST RADIOGRAPH Indication: Hemodialysis catheter placement, right subclavian Technique: Single frontal view of the chest was obtained Comparison: XY CHEST PORTABLE on DOS: 09/05/24, XY CHEST PORTABLE on DOS: 09/04/24, XY CHEST PORTABLE on DOS: 09/02/24 Findings/ impression: Limited evaluation due to chosen field of view and poor penetration. Endotracheal tube projects 3.5 c m superior to the teetee. Enteric tube projects below the GE junction without visualization of side port tip. Right subclavian HD catheter with tip projected at the cavoatrial junction. Right IJ CVC pr ojecting in the SVC. Left lower lung zone opacification which may be from prominent epicardial fat pa d with underlying pleural effusion or developing airspace disease not excluded.
[2024-09-05] MEDS: ALBUMIN 25% 100 ML IV SCH (20:04)
--- NOTE | 2024-09-05 20:47 | DVHPN2 ---
Progress Note - Dictate Date Seen: Sep 05, 2024 Medical Necessity Reason Pt with a Central, PICC or Fol: Yes The following are medically ne: Betancourt Catheter Reason for betancourt catheter: Strict I&O Subjective Patient was seen and evaluated in follow up in the ICU. Patient is intubated and sedated on ventilator. FiO2 decreased to 70%. WBC 25.6, K 5.9, CO2 15, BUN 69, HEAD PORTER 6.16, AST 368, ALT 105. Chest x-ray is unchanged. Gallbladder US shows cholelithiasis with pericholecystic free fluid with a negative sonographic Flowers's sign. Borderline hepatomegaly with hepatic steatosis. Echocardiogram revealed an EF of 65%. vital signs Vital Sign Date Time Temp Pulse Resp B/P (MAP) Pulse Ox O2 Delivery O2 Flow Rate FiO2 09/05/24 15:48 83 26 99/58 (72) 97 70 09/05/24 15:00 98.1 208.6 09/05/24 14:00 Mechanical Ventilator+ 09/03/24 11:17 10 Total Intake and Output 09/04/24 09/04/24 09/05/24 15:00 23:00 07:00 Intake Total 2102.520 ml 1349.493 ml 1341.054 ml Output Total 275 ml 50 ml Balance 2102.520 ml 1074.493 ml 1291.054 ml medications Current Medications Medications Dose Ordered Sig/Acacia Route Start Time Stop Time Status Last Admin Dose Admin Midazolam HCl 50 ml @ 1 mls/hr Q24H IV 09/02/24 15:45 09/05/24 12:36 10 MLS/HR Fentanyl Citrate 250 ml @ 2.5 mls/hr Q24H IV 09/02/24 15:45 09/05/24 12:32 25 MLS/HR Propofol 100 ml @ 3.54 mls/hr Q24H IV 09/02/24 15:45 09/05/24 12:36 24.78 MLS/HR Vancomycin HCl 0 ml @ 0 mls/hr UD IV 09/02/24 18:30 Albuterol 2.5 mg Q4HWA PRN NEB 09/02/24 18:30 09/05/24 13:30 2.5 MG Ipratropium [place] 0.5 mg Q4HWA PRN NEB 09/02/24 18:30 09/05/24 13:30 0.5 MG Acetaminophen 650 mg Q4HP PRN GT 09/03/24 10:00 09/03/24 10:21 650 MG Norepinephrine Bitartrate 32 mg/ Sodium Chloride 250 ml @ 0.938 mls/ hr Q24H IV 09/03/24 12:30 09/04/24 11:10 8.438 MLS/HR Methylprednisolone Sodium Succinate 100 mg Q6HP IV 09/03/24 15:30 09/05/24 12:36 100 MG Vasopressin 20 units/Sodium Chloride 100 ml @ 9 mls/hr Q11H7M IV 09/03/24 15:30 Pantoprazole Sodium 40 mg DAILY IV 09/04/24 10:00 09/05/24 10:28 40 MG Sodium Bicarbonate 150 ml/Dextrose 1,150 ml @ 100 mls/hr [id number] IV 09/05/24 14:45 09/05/24 16:06 100 MLS/HR Cefepime HCl 50 ml @ 12.5 mls/hr DAILY IV 09/05/24 15:35 09/05/24 16:06 12.5 MLS/HR objective GENERAL: Intubated on ventilator. Morbidly obese LUNGS: Decreased breath sounds. CARDIOVASCULAR: Heart sounds are good. ABDOMEN: Soft. Morbid pannus limited physical palpation. SKIN: Multiple scars to abdomen. Two open areas on abdomen with oozing wounds. laboratory and microbiology Laboratory Tests 09/05/24 14:04 09/05/24 03:20 Test 09/05/24 14:04 Range/Units Serum Glucose 134 H 74-106 mg/dL Problem List Septic shock. Acute on chronic respiratory failure. NSTEMI type II secondary to above. Rule out structural heart disease. Prolonged QT interval. Morbid obesity, Class 3. Assessment/Plan Continued all current supportive medical care. IV antibiotics as ordered. Vasopressors for hemodynamic support. GI prophylactics. Additional plan as per the hospital course. Critical care time of 45 minutes provided to include time spent evaluation of patient at bedside, when appropriate patient/family education for diagnosis, treatment plan, review of pertinent medical information and discussion of care with specialty providers and PCP. Mechanical ventilator parameters, treatment and adjustments have personally been reviewed by me and treatment plan by quality control microbiologist has also been reviewed. Dietary Evaluation Review Comments: 1. Consider EN/TPN if NPO >7days 2. Continue plan of care Expected Outcomes/Goals: 1. Pt will meet >75% of estimated needs within 2-3 days Plan discussed with: Other RELL STEWART MD Sep 05, 2024 16:34
[2024-09-05] MEDS: HEPARIN 1,000 UNITS/ml 1ML VIAL IV ONE (21:48)
--- NOTE | 2024-09-05 22:48 | DVHPN2 ---
Progress Note - Dictate Date Seen: Sep 05, 2024 Medical Necessity Reason Pt with a Central, PICC or Fol: Yes The following are medically ne: Betancourt Catheter Reason for betancourt catheter: Strict I&O Subjective Patient seen and examined at bedside. Sedated, intubated on mechanical ventilator. Overnight events reviewed. vital signs Vital Sign Date Time Temp Pulse Resp B/P (MAP) Pulse Ox O2 Delivery O2 Flow Rate FiO2 09/05/24 22:44 93 26 109/53 (71) 92 75 09/05/24 22:30 97.9 208.2 09/05/24 22:00 Mechanical Ventilator+ 09/03/24 11:17 10 Total Intake and Output 09/04/24 09/04/24 09/05/24 15:00 23:00 07:00 Intake Total 2102.520 ml 1349.493 ml 1341.054 ml Output Total 275 ml 50 ml Balance 2102.520 ml 1074.493 ml 1291.054 ml medications Current Medications Medications Dose Ordered Sig/[place]acia Route Start Time Stop Time Status Last Admin Dose Admin Midazolam HCl 50 ml @ 1 mls/hr Q24H IV 09/02/24 15:45 09/05/24 18:16 7 MLS/HR Fentanyl Citrate 250 ml @ 2.5 mls/hr Q24H IV 09/02/24 15:45 09/05/24 12:32 25 MLS/HR Propofol 100 ml @ 3.54 mls/hr Q24H IV 09/02/24 15:45 09/05/24 18:17 14.16 MLS/HR Vancomycin HCl 0 ml @ 0 mls/hr UD IV 09/02/24 18:30 Albuterol 2.5 mg Q4HWA PRN NEB 09/02/24 18:30 09/05/24 22:42 2.5 MG Ipratropium [place] 0.5 mg Q4HWA PRN NEB 09/02/24 18:30 09/05/24 22:42 0.5 MG Acetaminophen 650 mg Q4HP PRN GT 09/03/24 10:00 09/03/24 10:21 650 MG Norepinephrine Bitartrate 32 mg/ Sodium Chloride 250 ml @ 0.938 mls/ hr Q24H IV 09/03/24 12:30 09/04/24 11:10 8.438 MLS/HR Methylprednisolone Sodium Succinate 100 mg Q6HP IV 09/03/24 15:30 09/05/24 18:16 100 MG Vasopressin 20 units/Sodium Chloride 100 ml @ 9 mls/hr Q11H7M IV 09/03/24 15:30 Pantoprazole Sodium 40 mg DAILY IV 09/04/24 10:00 09/05/24 10:28 40 MG Sodium Bicarbonate 150 ml/Dextrose 1,150 ml @ 100 mls/hr [id number] IV 09/05/24 14:45 09/05/24 16:06 100 MLS/HR Cefepime HCl 50 ml @ 12.5 mls/hr DAILY IV 09/05/24 15:35 09/05/24 16:06 12.5 MLS/HR objective Gen.: Patient lying in bed in medical ICU. Sedated, intubated on mechanical ventilator. Head: Normocephalic, atraumatic. Eyes: PERRLA. Ears: Normal external anatomy. Throat: Endotracheal tube and orogastric tube in place. Neck: Supple, trachea midline. Chest: Transmitted breath sounds bilaterally. Decreased air entry bilaterally. No wheezing. Bibasilar crackles. Cardio vascular: Positive S1, positive S2. Regular rate and rhythm. Abdomen: Positive bowel sounds in all 4 quadrants. Soft, nontender, nondistended. : Betancourt in place. Normal external genitalia. Rectal: Deferred Skin: Warm, dry. Intact. Extremities: 2+ radial pulses bilaterally. No lower extremity edema. Neuro: Sedated. laboratory and microbiology Laboratory Tests 09/05/24 14:04 09/05/24 03:20 Test 09/05/24 14:04 Range/Units Serum Glucose 134 H 74-106 mg/dL Assessment/Plan Impression: Acute on chronic hypoxic respiratory failure On mechanical ventilator Pulmonary edema Pleural effusion, left Atelectasis Leukocytosis Lactic acidosis Morbid obesity, BMI 40 Events: Remains on vent support On pressure control with a respiratory rate of 26, inspiratory pressure of 18, I-time of 0.9 seconds, peep of 12, FiO2 at 80%. ABG notable for acidemia d/t metabolic acidosis and hypercarbia. WBC trending down. Hyperkalemia/worsening renal failure Plan for hemodialysis by Nephrology Consent for large-bore central line placement for HD. Worsening LFTs. Blood cultures show no growth x48 hours Sputum grew MRSA. Sedated on Versed, Propofol drip. Continue antibiotics - meropenem, vancomycin. Patient remains in critical condition, not tolerating turns. Continue permissive hypercarbia. Continue to monitor respiratory status closely. Poor prognosis due to multiorgan failure - renal, respiratory and liver failure. Labs and imaging reviewed. Rest of plan as noted below. Plan: s/p intubation on mechanical ventilator CXR image and report reviewed. Devices in place. Pulmonary edema. Small left pleural effusion. Atelectasis. ABG reviewed. Alkalemia due to respiratory alkalosis, hypoxemia PaO2 40.4 mmHg On pressure control with a respiratory rate of 26, inspiratory pressure of 18, I-time of 0.9 seconds, peep of 12, FiO2 at 80%. Titrate FIO2 to keep O2 saturation above 92%. VAP bundle Daily ABG and CXR while intubated. Sedate for ventilatory synchrony Bronchodilators Pressors as necessary for hemodynamic support. Titrate to keep MAP above 65 mmHg/SBP above 90 mmHg. Continue antibiotics. F/u cultures. Elevated WBC Monitor renal function Monitor ins/outs. Monitor electrolytes. Supplement as necessary. Monitor lactic acid On IVF Nutritional support. Accucheks, ISS. GI/DVT prophylaxis. Condition: Critical Prognosis: Poor given multiple comorbidities. Rest of plan per hospitalist and other consultants. A total of 35 minutes of critical care time was spent reviewing the patient record, examining the patient, making a diagnostic and therapeutic plan, discussing this plan with the medical personnel, following up on diagnostic studies and following the patient for clinical stability excluding any and all procedures. At least 50% of this time was spent in direct, [id number] contact. Thank you Dr. Banda for allowing me to participate in this patient's care. Further recommendations will depend on patient's clinical course. Please do not hesitate to contact me if you have any questions or concerns. This medical document was created using an electronic medical record system with [employer] system. Although this document has been carefully reviewed, there may still be some phonetic and typographical errors. These areas are purely typographical due to imperfections of the software programs, and do not reflect any compromise in the patient's medical care. Dietary Evaluation Review Comments: 1. Consider EN/TPN if NPO >7days 2. Continue plan of care Expected Outcomes/Goals: 1. Pt will meet >75% of estimated needs within 2-3 days Plan discussed with: Other (DEIDRE Soliz) Critical Care Time(min): 35 SHAI SINGH MD Sep 05, 2024 22:48
[2024-09-06] VITALS (105 sets, daily range): BP systolic 89–132; BP diastolic 44–74; PULSE 68–103; RESP 12–27; TEMP 97.3–99.1; O2SAT 86–99
[2024-09-06] MEDS: SODIUM BICARB 8.4% 50Meq/50ml SYR Vial IV ONE (02:48)
[2024-09-06 04:31] LABS: Hematocrit 35.9 % (36.0-46.0); Hemoglobin 12.2 g/dL (12.2-16.2); Mean Corpuscular Hemoglobin 29.7 pg (28.0-32.0); Mean Corpuscular Volume 87.2 fL (80.0-100.0); Platelet Count (auto) 180 10^3/uL (140-450); Red Blood Cells 4.12 10^6/uL (4.0-5.20); Red Cell Distribution Width 13.5 % (11.8-14.3); White Blood Cell 16.5 10^3/uL (4.4-10.8)
[2024-09-06 04:39] LABS: INR 1.03 (0.9-1.15); Prothrombin Time 10.9 sec (9.3-11.8)
[2024-09-06 04:43] LABS: Basophils % (manual) 0 (0.0-2.0); Blast Cells 0; Eosinophils % (manual) 0 (0-7); Metamyelocytes % 0; Promyelocytes % 0; Reactive Lymphocytes 0
[2024-09-06 04:46] LABS: Alanine Aminotransferase 90 U/L (7-40); Albumin 3.6 g/dL (3.2-4.8); Alkaline Phosphatase 124 U/L (46-116); Anion Gap 13 (5-15); Aspartate Aminotransferase 241 U/L (13-40); BUN/Creatinine Ratio 11.5 (10.0-20.0); Calcium 8.6 mg/dL (8.7-10.4); Carbon Dioxide 26 mmol/L (20-31); Chloride 100 mmol/L (98-107); Glucose 167 mg/dL (74-106); Magnesium 2.3 mg/dL (1.6-2.6); Sodium 139 mmol/L (136-145)
[2024-09-06 04:47] LABS: Bilirubin, Total 0.8 mg/dL (0.2-1.0); Total Protein 5.9 g/dL (5.7-8.2)
--- NOTE | 2024-09-06 04:53 | DVH ---
CHEST RADIOGRAPH Indication: VENTILATED Technique: Single frontal view of the chest was obtained COMPARISON: XY CHEST XRAY 1 VIEW on DOS: 09/05/24, XY CHEST PORTABLE on DOS: 09/05/24, XY CHEST ERIC BLE on DOS: 09/04/24 FINDINGS: Lines and Tubes: Right subclavian central venous catheter in satisfactory position. Right internal j ugular central venous catheter projects superiorly possibly within the azygous vein or looping in the internal jugular vein. Repositioning may be required. Endotracheal tube and enteric catheter in sat isfactory position. Lungs: Left mid and lower lung consolidation. Pleura: Moderate left pleural effusion. No pneumothorax. Cardiomediastinal contours: Cardiomegaly Bones: Unremarkable IMPRESSION: Right internal jugular central venous catheter May require repositioning it appears to project director regulatory affairs iorly and superiorly. Clinical correlation advised. Increasing left lung airspace consolidation.
[2024-09-06 04:58] LABS: Blood Urea Nitrogen 50 mg/dL (9-23); Creatine Kinase IFCC 8215 U/L (34-145)
[2024-09-06 06:54] LABS: Band Neutrophils % (manual) 3; Myelocytes % 1
[2024-09-06 06:55] LABS: Large Platelets FEW; Lymphocytes % (manual) 4 (10.0-50.0); Monocytes % (manual) 5 (0-12); Platelet Estimate Adequate
[2024-09-06 06:56] LABS: Anisocytosis Slight; Target Cell FEW
[2024-09-06 07:26] LABS: Base Excess -2.5 mmol/L (-2.0-3.0)
--- NOTE | 2024-09-06 08:19 | DVHPN2 ---
Progress Note - Dictate Date Seen: Sep 06, 2024 Medical Necessity Reason Pt with a Central, PICC or Fol: Yes The following are medically ne: Betancourt Catheter Reason for betancourt catheter: Strict I&O Subjective Patient was seen and evaluated. She is sedated and intubated on mechanical ventilation FIO2 85% and PEEP 12 White count is slightly better 16.5, off pressors Potassium is high at 4.0, yesterday it was 6.8 Creatinine is elevated at 4.34, yesterday it was 5.4. 09/06 chest x-ray : Right internal jugular central venous catheter May require repositioning it appears to project posteriorly and superiorly. Clinical correlation advised. 09/04 : gall bladder US reviewed vital signs Vital Sign Date Time Temp Pulse Resp B/P (MAP) Pulse Ox O2 Delivery O2 Flow Rate FiO2 09/06/24 07:56 92 26 111/58 (75) 92 75 09/06/24 07:00 98.1 208.6 09/06/24 06:00 Mechanical Ventilator+ Total Intake and Output 09/05/24 09/05/24 09/06/24 15:00 23:00 07:00 Intake Total 1264.920 ml 885.048 ml 1026.22 ml Output Total 75 ml 30 ml Balance 1264.920 ml 810.048 ml 996.22 ml medications Current Medications Medications Dose Ordered Sig/Acacia Route Start Time Stop Time Status Last Admin Dose Admin Midazolam HCl 50 ml @ 1 mls/hr Q24H IV 09/02/24 15:45 09/06/24 02:45 4 MLS/HR Fentanyl Citrate 250 ml @ 2.5 mls/hr Q24H IV 09/02/24 15:45 09/06/24 00:59 15 MLS/HR Propofol 100 ml @ 3.54 mls/hr Q24H IV 09/02/24 15:45 09/06/24 01:01 7.08 MLS/HR Vancomycin HCl 0 ml @ 0 mls/hr UD IV 09/02/24 18:30 Albuterol 2.5 mg Q4HWA PRN NEB 09/02/24 18:30 09/06/24 06:12 2.5 MG Ipratropium [place] 0.5 mg Q4HWA PRN NEB 09/02/24 18:30 11/25/24 06:11 0.5 MG Acetaminophen 650 mg Q4HP PRN GT 09/03/24 10:00 09/03/24 10:21 650 MG Norepinephrine Bitartrate 32 mg/ Sodium Chloride 250 ml @ 0.938 mls/ hr Q24H IV 09/03/24 12:30 09/04/24 11:10 8.438 MLS/HR Methylprednisolone Sodium Succinate 100 mg Q6HP IV 09/03/24 15:30 09/06/24 05:40 100 MG Vasopressin 20 units/Sodium Chloride 100 ml @ 9 mls/hr Q11H7M IV 09/03/24 15:30 Pantoprazole Sodium 40 mg DAILY IV 09/04/24 10:00 09/05/24 10:28 40 MG Sodium Bicarbonate 150 ml/Dextrose 1,150 ml @ 100 mls/hr [id number] IV 09/05/24 14:45 09/06/24 02:44 100 MLS/HR Cefepime HCl 50 ml @ 12.5 mls/hr DAILY IV 09/05/24 15:35 09/05/24 16:06 12.5 MLS/HR objective General intubated and sedated HEENT: Atraumatic,intubated Neck: No swelling Lungs: Equal air entry and clear to auscultation Cardiovascular: S1 S2 heard no murmur Abdomen: Soft nontender, no organomegaly, nondistended Neuro: sedated, unable to assess Psych: unable to assess laboratory and microbiology Laboratory Tests 09/06/24 03:00 Test 09/06/24 03:00 Range/Units Serum Glucose 167 H 74-106 mg/dL Assessment/Plan Patient is a 63-year-old female presented to the hospital with: Staphylococcus aureus pneumonia ( MRSA) Streptococcus Pneumoniae pneumonia Septic shock resolving bacteremia : coag neg staphylococccus Acute Respiratory Failure [requiring mechanical ventilation] severe hypoxia Metabolic acidosis FEDE Morbidly obese BMI = 40 PE history Recommendations: cont IV Vancomycin and cont IV Cefepime wbc trending down; cont to monitor repeat 2 sets of blood cx, Pulmonary on board for vent management Blood culture:co ag neg staph, i think its contaminated Sputum culture: Positive for Staphylococcus aureus nephrology is on board s.p HD full code prognosis very poor crit time 35 mins spent during the encounter. Thank you for consult and for giving an opportunity to take care of this patient. Dietary Evaluation Review Comments: 1. Consider EN/TPN if NPO >7days 2. Continue plan of care Expected Outcomes/Goals: 1. Pt will meet >75% of estimated needs within 2-3 days Plan discussed with: ANGELLA Peng MD Sep 06, 2024 08:18
--- NOTE | 2024-09-06 10:21 | DVHPN2 ---
Progress Note Date Seen: Sep 06, 2024 Medical Necessity Reason Pt with a Central, PICC or Fol: Yes The following are medically ne: Betancourt Catheter Reason for betancourt catheter: Strict I&O Objective vital signs Vital Sign Date Time Temp Pulse Resp B/P (MAP) Pulse Ox O2 Delivery O2 Flow Rate FiO2 09/06/24 09:48 83 26 112/59 (76) 93 75 09/06/24 09:15 98.2 208.8 09/06/24 08:00 Mechanical Ventilator+ Total Intake and Output 09/05/24 09/05/24 09/06/24 14:59 22:59 06:59 Intake Total 1400.325 ml 779.990 ml 1038.823 ml Output Total 75 ml 30 ml Balance 1400.325 ml 704.990 ml 1008.823 ml medications Current Medications Medications Dose Ordered Sig/Acacia Route Start Time Stop Time Status Last Admin Dose Admin Midazolam HCl 50 ml @ 1 mls/hr Q24H IV 09/02/24 15:45 09/06/24 02:45 4 MLS/HR Fentanyl Citrate 250 ml @ 2.5 mls/hr Q24H IV 09/02/24 15:45 09/06/24 00:59 15 MLS/HR Propofol 100 ml @ 3.54 mls/hr Q24H IV 09/02/24 15:45 09/06/24 01:01 7.08 MLS/HR Vancomycin HCl 0 ml @ 0 mls/hr UD IV 09/02/24 18:30 Albuterol 2.5 mg Q4HWA PRN NEB 09/02/24 18:30 09/06/24 06:12 2.5 MG Ipratropium [place] 0.5 mg Q4HWA PRN NEB 09/02/24 18:30 09/06/24 06:11 0.5 MG Acetaminophen 650 mg Q4HP PRN GT 09/03/24 10:00 09/03/24 10:21 650 MG Norepinephrine Bitartrate 32 mg/ Sodium Chloride 250 ml @ 0.938 mls/ hr Q24H IV 09/03/24 12:30 09/04/24 11:10 8.438 MLS/HR Methylprednisolone Sodium Succinate 100 mg Q6HP IV 09/03/24 15:30 09/06/24 05:40 100 MG Vasopressin 20 units/Sodium Chloride 100 ml @ 9 mls/hr Q11H7M IV 09/03/24 15:30 Pantoprazole Sodium 40 mg DAILY IV 09/04/24 10:00 09/05/24 10:28 40 MG Sodium Bicarbonate 150 ml/Dextrose 1,150 ml @ 100 mls/hr [id number] IV 09/05/24 14:45 09/06/24 02:44 100 MLS/HR Cefepime HCl 50 ml @ 12.5 mls/hr DAILY IV 09/05/24 15:35 09/05/24 16:06 12.5 MLS/HR laboratory and microbiology Laboratory Tests 09/06/24 03:00 Test 09/06/24 03:00 Range/Units Serum Glucose 167 H 74-106 mg/dL Problem List/Assessment/Plan Problem List/Assessment/Plan 09/05/24 REMAINS INTUBATED AND SEDATED, ABDOMEN SOFT, NON DISTENDED, NO GUARDING, TWO SMALL GRANULATING WOUNDS ON ABDOMINAL WOUND ARE SUTURE GRANULOMAS, i HAVE REMOVED THE SUTURES, THE WOUNDS CAN BE WASHED VIGOROUSLY TO REMOVE SCABS, NO FURTHER SURGICAL INTERVENTION NEEDED 09/06/24 essentially unchanged, abdomen is sift, non distended, hernias reducible, no evidence of surgical problem, she could not tolerated having the gastrografin study due to desaturation, i will sign off for now, please recall if needed Plan discussed with: Patient Dietary Evaluation Review Comments: 1. Consider EN/TPN if NPO >7days 2. Continue plan of care Expected Outcomes/Goals: 1. Pt will meet >75% of estimated needs within 2-3 days JUNI DRISCOLL MD Sep 06, 2024 10:21
[2024-09-06 10:46] LABS: Hepatitis B Surface Antigen Negative (Negative)
[2024-09-06 11:07] LABS: Hepatitis A Ab IgM Negative
[2024-09-06 11:08] LABS: Hepatitis B Core IgM Negative; Hepatitis C Antibody Negative (Negative)
--- NOTE | 2024-09-06 14:22 | DVH ---
Bilateral Chest Sonogram Date: 09/06/2024 02:06 PM Clinical history: left lung consolidation Technique: Limited sonographic evaluation of the bilateral chest was performed to evaluate for pleur al effusion. Finding/Impression: No evidence for right or left pleural effusion on the provided images. HS:Y
--- NOTE | 2024-09-06 15:41 | DVHPN2 ---
Progress Note Date Seen: Sep 06, 2024 Medical Necessity Reason Pt with a Central, PICC or Fol: Yes The following are medically ne: Betancourt Catheter Reason for betancourt catheter: Strict I&O Subjective Review of Systems: RESPIRATORY:Abnormal Other Systems: Patient seen and examined by myself follow-up today, patient remained intubated on ventilator Patient examined hemodialysis, blood pressure stable Objective vital signs Vital Sign Date Time Temp Pulse Resp B/P (MAP) Pulse Ox O2 Delivery O2 Flow Rate FiO2 09/06/24 14:38 78 26 102/66 (78) 94 80 09/06/24 13:00 97.9 208.2 09/06/24 12:00 Mechanical Ventilator+ Total Intake and Output 09/05/24 09/05/24 09/06/24 15:00 23:00 07:00 Intake Total 1264.920 ml 885.048 ml 1026.22 ml Output Total 75 ml 30 ml Balance 1264.920 ml 810.048 ml 996.22 ml medications Current Medications Medications Dose Ordered Sig/Acacia Route Start Time Stop Time Status Last Admin Dose Admin Fentanyl Citrate 250 ml @ 2.5 mls/hr Q24H IV 09/02/24 15:45 09/06/24 00:59 15 MLS/HR Propofol 100 ml @ 3.54 mls/hr Q24H IV 09/02/24 15:45 09/06/24 14:39 21.24 MLS/HR Vancomycin HCl 0 ml @ 0 mls/hr UD IV 09/02/24 18:30 Albuterol 2.5 mg Q4HWA PRN NEB 09/02/24 18:30 09/06/24 06:12 2.5 MG Ipratropium [place] 0.5 mg Q4HWA PRN NEB 09/02/24 18:30 09/06/24 06:11 0.5 MG Acetaminophen 650 mg Q4HP PRN GT 09/03/24 10:00 09/03/24 10:21 650 MG Norepinephrine Bitartrate 32 mg/ Sodium Chloride 250 ml @ 0.938 mls/ hr Q24H IV 09/03/24 12:30 09/04/24 11:10 8.438 MLS/HR Vasopressin 20 units/Sodium Chloride 100 ml @ 9 mls/hr Q11H7M IV 09/03/24 15:30 Pantoprazole Sodium 40 mg DAILY IV 09/04/24 10:00 09/06/24 10:35 40 MG Cefepime HCl 50 ml @ 12.5 mls/hr DAILY IV 09/05/24 15:35 09/06/24 10:35 12.5 MLS/HR Docusate Sodium 200 mg BID NG 09/06/24 22:00 Sennosides 17.2 mg HS PO 09/06/24 22:00 Hydrocortisone Sodium Succinate 100 mg Q12HR IV 09/06/24 22:00 Vancomycin HCl 100 ml @ 200 mls/hr Q12H IV 09/06/24 18:00 UNV laboratory and microbiology Laboratory Tests 09/06/24 03:00 Test 09/06/24 03:00 Range/Units Serum Glucose 167 H 74-106 mg/dL Microbiology Date/Time Source Procedure Growth Status 09/04/24 20:40 Nose MRSA Screen - Final Complete 09/02/24 17:44 Blood Blood Culture - Preliminary Staph hominis subsp homins Resulted 09/02/24 16:00 Urine - Bet[place]ourt [place] Urine Culture - Final Complete 09/02/24 15:35 Sputum Gram Stain - Final Complete 09/02/24 15:35 Respiratory Culture - Final Methicillin Resistant S.aureus Streptococcus pneumoniae Streptococcus pneumoniae#2 Complete Problem List/Assessment/Plan Problem List/Assessment/Plan Acute kidney injury superimposed Chronic Kidney Disease secondary to multifactorial, FeNa < 1%, oliguric requiring initiation of hemodialysis Acute respiratory failure, patient intubated on ventilator CKD stage IIIA? Septic shock with multiorgan involvement history of PE Hyperkalemia Vancomycin toxicity Recommendations Continue with UF 1-2 L as tolerated Fluid restrictions IV antibiotic per ID consult Start low-dose dopamine Avoid nephrotoxic DC vanco if okay with ID consult Betancourt catheter Strict I&Os We will continue to follow Plan discussed with: Other (Nurse) Dietary Evaluation Review Comments: 1. Consider EN/TPN if NPO >7days 2. Continue plan of care Expected Outcomes/Goals: 1. Pt will meet >75% of estimated needs within 2-3 days ADAM MONTOYA MD Sep 06, 2024 15:41
[2024-09-06] MEDS: DOPamine 1600MCG/ML D5W 250 ML IV SCH (17:15)
[2024-09-06] MEDS: VANCOMYCIN 500mg/100mL 100 ML IV SCH (17:49)
[2024-09-06] MEDS: ENOXAPARIN SOD 40 MG/0.4 ML SYRINGE SC ONE (17:52)
--- NOTE | 2024-09-06 17:57 | DVHPN2 ---
Progress Note - Dictate Date Seen: Sep 06, 2024 Medical Necessity Reason Pt with a Central, PICC or Fol: Yes The following are medically ne: Betancourt Catheter Reason for betancourt catheter: Strict I&O Subjective Patient was seen and evaluated in follow up in the ICU. Patient is intubated and sedated on ventilator. 80% FiO2. Chest x-ray shows right internal jugular central venous catheter May require repositioning it appears to project posteriorly and superiorly. Clinical correlation advised. Increasing left lung airspace consolidation. Chest US showed no evidence for right or left pleural effusion on the provided images. WBC down to 16.5. BUN 50, Election Watcher 4.34, AST 241, ALT 90, CK 8215. vital signs Vital Sign Date Time Temp Pulse Resp B/P (MAP) Pulse Ox O2 Delivery O2 Flow Rate FiO2 09/06/24 17:15 97.9 77 26 99/44 (62) 92 208.2 09/06/24 16:00 80 09/06/24 16:00 Mechanical Ventilator+ Total Intake and Output 09/05/24 09/05/24 09/06/24 15:00 23:00 07:00 Intake Total 1264.920 ml 885.048 ml 1026.22 ml Output Total 75 ml 30 ml Balance 1264.920 ml 810.048 ml 996.22 ml medications Current Medications Medications Dose Ordered Sig/Acacia Route Start Time Stop Time Status Last Admin Dose Admin Fentanyl Citrate 250 ml @ 2.5 mls/hr Q24H IV 09/02/24 15:45 09/06/24 17:15 20 MLS/HR Propofol 100 ml @ 3.54 mls/hr Q24H IV 09/02/24 15:45 09/06/24 14:39 21.24 MLS/HR Vancomycin HCl 0 ml @ 0 mls/hr UD IV 09/02/24 18:30 Albuterol 2.5 mg Q4HWA PRN NEB 09/02/24 18:30 09/06/24 06:12 2.5 MG Ipratropium [place] 0.5 mg Q4HWA PRN NEB 09/02/24 18:30 09/06/24 06:11 0.5 MG Acetaminophen 650 mg Q4HP PRN GT 09/03/24 10:00 09/03/24 10:21 650 MG Norepinephrine Bitartrate 32 mg/ Sodium Chloride 250 ml @ 0.938 mls/ hr Q24H IV 09/03/24 12:30 09/04/24 11:10 8.438 MLS/HR Vasopressin 20 units/Sodium Chloride 100 ml @ 9 mls/hr Q11H7M IV 09/03/24 15:30 Pantoprazole Sodium 40 mg DAILY IV 09/04/24 10:00 09/06/24 10:35 40 MG Docusate Sodium 200 mg BID NG 09/06/24 22:00 Sennosides 17.2 mg HS PO 09/06/24 22:00 Hydrocortisone Sodium Succinate 100 mg Q12HR IV 09/06/24 22:00 Vancomycin HCl 100 ml @ 200 mls/hr Q12H IV 09/06/24 18:00 09/06/24 17:49 200 MLS/HR Dopamine HCl/ Dextrose 250 ml @ 8.925 mls/ hr Q24H IV 09/06/24 15:45 09/06/24 17:15 8.925 MLS/HR Ceftriaxone Sodium/Dextrose 50 ml @ 50 mls/hr DAILY IV 09/07/24 10:00 objective GENERAL: Intubated on ventilator. Morbidly obese LUNGS: Decreased breath sounds. CARDIOVASCULAR: Heart sounds are good. ABDOMEN: Soft. Morbid pannus limited physical palpation. SKIN: Multiple scars to abdomen. Two open areas on abdomen with oozing wounds. laboratory and microbiology Laboratory Tests 09/06/24 03:00 Test 09/06/24 03:00 Range/Units Serum Glucose 167 H 74-106 mg/dL Problem List Septic shock. Acute on chronic respiratory failure. NSTEMI type II secondary to above. Rule out structural heart disease. Prolonged QT interval. Morbid obesity, Class 3. Assessment/Plan Continued all current supportive medical care. IV antibiotics as ordered. Vasopressors for hemodynamic support. GI prophylactics. Additional plan as per the hospital course. Critical care time of 45 minutes provided to include time spent evaluation of patient at bedside, when appropriate patient/family education for diagnosis, treatment plan, review of pertinent medical information and discussion of care with specialty providers and PCP. Mechanical ventilator parameters, treatment and adjustments have personally been reviewed by me and treatment plan by cable installation manager has also been reviewed. Dietary Evaluation Review Comments: 1. Consider EN/TPN if NPO >7days 2. Continue plan of care Expected Outcomes/Goals: 1. Pt will meet >75% of estimated needs within 2-3 days Plan discussed with: Other RELL STEWART MD Sep 06, 2024 17:57
--- NOTE | 2024-09-06 18:04 | DVHPNRES ---
Progress Note Date Seen: Sep 07, 2024 Resident Creating Document: DAVID RIDDLE RESDIENT Medical Necessity Reason Pt with a Central, PICC or Fol: Yes The following are medically ne: Betancourt Catheter Reason for betancourt catheter: Strict I&O Subjective Review of Systems Patient seen and examined at the bedside. Patient is sedated and on mechanical ventilation. Review of system could not obtain. Patient reports: No new complaints Changes from previous H/P or p: No Changes Objective vital signs Vital Sign Date Time Temp Pulse Resp B/P (MAP) Pulse Ox O2 Delivery O2 Flow Rate FiO2 09/06/24 17:15 97.9 77 26 99/44 (62) 92 208.2 09/06/24 16:00 80 09/06/24 16:00 Mechanical Ventilator+ Total Intake and Output 09/05/24 09/05/24 09/06/24 15:00 23:00 07:00 Intake Total 1264.920 ml 885.048 ml 1026.22 ml Output Total 75 ml 30 ml Balance 1264.920 ml 810.048 ml 996.22 ml medications Current Medications Medications Dose Ordered Sig/[place]acia Route Start Time Stop Time Status Last Admin Dose Admin Fentanyl Citrate 250 ml @ 2.5 mls/hr Q24H IV 09/02/24 15:45 09/06/24 17:15 20 MLS/HR Propofol 100 ml @ 3.54 mls/hr Q24H IV 09/02/24 15:45 09/06/24 14:39 21.24 MLS/HR Vancomycin HCl 0 ml @ 0 mls/hr UD IV 09/02/24 18:30 Albuterol 2.5 mg Q4HWA PRN NEB 09/02/24 18:30 09/06/24 06:12 2.5 MG Ipratropium [place] 0.5 mg Q4HWA PRN NEB 09/02/24 18:30 09/06/24 06:11 0.5 MG Acetaminophen 650 mg Q4HP PRN GT 09/03/24 10:00 09/03/24 10:21 650 MG Norepinephrine Bitartrate 32 mg/ Sodium Chloride 250 ml @ 0.938 mls/ hr Q24H IV 09/03/24 12:30 09/04/24 11:10 8.438 MLS/HR Vasopressin 20 units/Sodium Chloride 100 ml @ 9 mls/hr Q11H7M IV 09/03/24 15:30 Pantoprazole Sodium 40 mg DAILY IV 09/04/24 10:00 09/06/24 10:35 40 MG Docusate Sodium 200 mg BID NG 09/06/24 22:00 Sennosides 17.2 mg HS PO 09/06/24 22:00 Hydrocortisone Sodium Succinate 100 mg Q12HR IV 09/06/24 22:00 Vancomycin HCl 100 ml @ 200 mls/hr Q12H IV 09/06/24 18:00 09/06/24 17:49 200 MLS/HR Dopamine HCl/ Dextrose 250 ml @ 8.925 mls/ hr Q24H IV 09/06/24 15:45 09/06/24 17:15 8.925 MLS/HR Ceftriaxone Sodium/Dextrose 50 ml @ 50 mls/hr DAILY IV 09/07/24 10:00 Examination General Appearance: Patient is sedated and on mechanical ventilation. RASS score -3 (opens eyes to painful stimuli) HEENT: Atraumatic, PERRLA, EOMI, Mucous membrane moist/pink Respiratory: Clear to auscultation, Normal air movement Cardiovascular: Regular rate, Normal S1, Normal S2, No murmurs, no chest wall tenderness Abdominal: Reducible abdominal hernia Extremities: No clubbing, No cyanosis, No edema, Normal pulses, No tenderness/swelling Skin: No rashes, No breakdown, No significant lesion laboratory and microbiology Laboratory Tests 09/06/24 03:00 Test 09/06/24 03:00 Range/Units Serum Glucose 167 H 74-106 mg/dL Microbiology Date/Time Source Procedure Growth Status 09/04/24 20:40 Nose MRSA Screen - Final Complete 09/02/24 17:44 Blood Blood Culture - Preliminary Staph hominis subsp homins Resulted 09/02/24 16:00 Urine - [place] Urine Culture - Final Complete 09/02/24 15:35 Sputum Gram Stain - Final Complete 09/02/24 15:35 Respiratory Culture - Final Methicillin Resistant S.aureus Streptococcus pneumoniae Streptococcus pneumoniae#2 Complete Labs and/or images reviewed: Labs reviewed by me, Image(s) reviewed by me Problem List/Assessment/Plan Problem List/Assessment/Plan NEURO: Acute metabolic encephalopathy likely due to septic shock Patient is sedated and on mechanical ventilation with RASS score -3 (opens eyes to painful stimuli) CARDIOVASCULAR: NSTEMI type 2 likely due to septic shock Cardiology on the board, recommended conservative management Echocardiogram shows mild LVH with mild LV diastolic dysfunction with ejection fraction of 65 PULMONARY: Patient is sedated and on mechanical ventilation with pressure control mode with PEEP 12 Acute Hypoxic respiratory failure, likely due to pneumonia Septic shock likely due to pneumonia Pneumonia likely due to Gram-positive Gram-negative bacteria Blood culture from 09/02/2024 shows staph hominis sensitive to vancomycin Sputum culture from 09/02/2024 shows MRSA, Streptococcus pneumoniae vancomycin Continue vancomycin Stopped cefepime and start ceftriaxone Bronchoscopy planned for tomorrow Chest CT scan without contrast Chest ultrasound Switch methylprednisolone to Hydrocortisone 100 mg b.i.d. Continue N-acetylcysteine MRSA nares screening negative Influenza and COVID-19 screening negative Breathing treatment q.4 hours as needed GI: Abdominal ventral hernias, abdominal CT scan shows multiple ventral wall hernias containing fat and bowel with mild dilatation of proximal jejunum loops with jejunal loops course into the abdominal hernia Possible bowel obstruction, surgery consulted, recommended conservative management, suggested that small bowel series could not perform at the moment due to respiratory status of the patient Transaminitis, likely ischemic secondary to septic shock Bowel regimen: Started docusate and sennosides GI ppx: Protonix RENAL: Hyperkalemia, improved Hyponatremia, improved FEDE on CKD(baseline record not available), likely hemodynamically mediated Nephrology on the board, performed hemodialysis today and took out 4 L ENDOCRINE: Hypertriglyceridemia, TG 623 Possible PID Patient has purulent vaginal discharge Vaginal bacterial culture LINES/DRAINS/ACCESS: ETT, intubated on 09/02/2024 IV access Hemodialysis catheter on the right subclavian vein, placed on 09/05/2024 Right internal jugular when CVC, placed on 09/03/2024 Left upper limb peripheral IV line, placed on 09/02/2024 Levophed 6 Dopamine to Diprivan 30 Fentanyl 200 DVT ppx: Lovenox DIET: Jevity CODE STATUS: Full code Patient's status was updated with the patient's daughter at the bedside, counseled regarding the bronchoscopy for tomorrow Critical time spent more than 50 minutes, including patient care, chart review and updating the family. excluding any procedures. Case discussed with Dr. Beck Plan discussed with: Daughter, Other (RN) My Orders My Orders Orders - DAVID RIDDLE RESDIENT Procedure Category Date Status Time Ceftriaxone 2gm/50ml PHA 09/07/24 In Process D5w (Rocephin 2gm/5 10:00 Enoxaparin Sodium PHA 09/06/24 In Process (Lovenox) 17:30 Dietary Evaluation Review Comments: 1. Consider EN/TPN if NPO >7days 2. Continue plan of care Expected Outcomes/Goals: 1. Pt will meet >75% of estimated needs within 2-3 days Date of Service: Sep 08, 2024 Billing Provider: IVAN BECK MD Common Visit Codes: 53098-[id number] CARE 30-74 MIN DAVID RIDDLE RESDIENT Sep 06, 2024 18:04 IVAN BECK MD Sep 09, 2024 13:43
[2024-09-06 18:31] LABS: Base Excess 0.8 mmol/L (-2.0-3.0)
[2024-09-06] MEDS: SENNA 8.6 MG TAB PO SCH (22:18)
[2024-09-06] MEDS: DOCUSATE ORAL LIQUID 100 MG/10 ML UD NG SCH (22:18)
[2024-09-06] MEDS: HYDROCORTISONE SOD SUCC 100 MG/2ML INJ VIAL IV SCH (22:18)
--- NOTE | 2024-09-06 23:42 | DVH ---
CT BRAIN WITHOUT CONTRAST HISTORY: aloc TECHNIQUE: Axial scans were obtained from the skull base through the vertex without contrast. [place] l and coronal reformats were generated. One or more of the following radiation dose reduction techniq ues were used for this examination: automated exposure control, adjustment of the mA and/or kV accord ing to patient size, use of iterative reconstruction technique. COMPARISON: None FINDINGS: No acute intracranial hemorrhage or evidence of large vessel territorial infarction is identified at this time. No midline shift. The basilar cisterns are patent. The visualized paranasal sinuses are clear. Partial opacification of the bilateral mastoid air cells . No grossly displaced calvarial fractures identified. IMPRESSION: No acute intracranial hemorrhage or evidence of large vessel territorial infarction identified at thi s time. If there is persistent clinical concern, MRI may be obtained to further evaluate. Bilateral mastoid effusions.
[2024-09-07] VITALS (108 sets, daily range): BP systolic 92–131; BP diastolic 49–68; PULSE 61–79; RESP 14–27; TEMP 97.7–98.8; O2SAT 87–99
[2024-09-07 04:13] LABS: Alanine Aminotransferase 92 U/L (7-40); Albumin 3.9 g/dL (3.2-4.8); Alkaline Phosphatase 134 U/L (46-116); Anion Gap 14 (5-15); Aspartate Aminotransferase 186 U/L (13-40); BUN/Creatinine Ratio 10.3 (10.0-20.0); Bilirubin, Total 0.6 mg/dL (0.2-1.0); Blood Urea Nitrogen 41 mg/dL (9-23); Calcium 9.1 mg/dL (8.7-10.4); Carbon Dioxide 20 mmol/L (20-31); Chloride 101 mmol/L (98-107); Glucose 145 mg/dL (74-106); Sodium 135 mmol/L (136-145); Total Protein 6.4 g/dL (5.7-8.2)
[2024-09-07 04:28] LABS: Hematocrit 41.3 % (36.0-46.0); Mean Corpuscular Hemoglobin 30.2 pg (28.0-32.0); Mean Corpuscular Hgb Conc. 33.9 g/dL (32.0-36.0); Mean Corpuscular Volume 89.2 fL (80.0-100.0); Platelet Count (auto) 188 10^3/uL (140-450); Red Blood Cells 4.63 10^6/uL (4.0-5.20); Red Cell Distribution Width 14.1 % (11.8-14.3); White Blood Cell 18.5 10^3/uL (4.4-10.8)
[2024-09-07 04:30] LABS: Basophils % (manual) 0 (0.0-2.0); Blast Cells 0; Eosinophils % (manual) 0 (0-7); Metamyelocytes % 0; Myelocytes % 0; Promyelocytes % 0; Reactive Lymphocytes 0
--- NOTE | 2024-09-07 04:31 | DVH ---
Procedure: CT CHEST WITHOUT CONTRAST Reason for study/Clinical History: left lung consolidation per xray Comparison Study: Chest x-ray 09/06/2024 Exam Date: 09/06/2024 11:05 PM TECHNIQUE: Multidetector CT of the chest was performed from the lung apices to the upper abdomen with out the use of intravenous contract. Axial, coronal and sagittal multiplanar reformats were performed . Radiation Dose Information: CT Dose: CTDI volume is 30.65 mGy. Dose-length product is 1253.6 mGy*cm The dose indicators for CT are the volume Computed Tomography (CT) Dose Index (CTDIvol) and the Dose Length Product (DLP), and are measured in units of mGy and mGy-cm, respectively. These indicators are not patient dose, but values generated from the CT scanner acquisition factors. The report includes radiation exposure data for exposures received during this examination. Radiation optimization: All CT scans at this facility use at least one of these dose optimization rashawn hniques: automated exposure control mA and/or kV adjustment per patient size (includes targeted exam s where dose is matched to clinical indication) or iterative reconstruction. FINDINGS: Thyroid gland appears unremarkable. The tip of the endotracheal tube is at the teetee towards the rig ht mainstem bronchus and retraction of approximately 2 cm is recommended for ideal positioning. Enter ic tube tip is within the stomach. There is consolidation and atelectasis of the left lower lobe and portion of the left upper lobe. The re is some narrowing of the left upper lobe bronchus and nonvisualization of the left lower lobe bron chus. Fluid density is noted suggesting small pleural effusion. Consolidation in the right lower lobe favors atelectasis. There are a few prominent mediastinal lymph nodes with left hilar lymph node max suring up to 1.2 cm in short axis. Coronary calcifications are noted. Thoracic aorta appears normal i n caliber and contour. There is no pericardial effusion. Visualized portions of the upper abdomen demonstrate trace perihepatic fluid. There is fatty replacem ent of the pancreas. No suspicious osseous lesion IMPRESSION: 1. Endotracheal tube at the teetee pointed towards the right mainstem bronchus retraction of approxim ately 1-2 cm is recommended. 2. Consolidation, atelectasis of the left lung with complete obscuration of the left lower lobe bronc hus and narrowing of the left upper lobe bronchus with small pleural effusion. Findings may be on th e basis infectious process, neoplasm, or mucous plug. Bronchoscopy may be of benefit. 3. Nonspecific prominent mediastinal and hilar lymph nodes, may be reactive. HS:Y
[2024-09-07 07:03] LABS: Band Neutrophils % (manual) 4; Lymphocytes % (manual) 4 (10.0-50.0); Monocytes % (manual) 6 (0-12)
[2024-09-07 07:04] LABS: Platelet Estimate Adequate
[2024-09-07 07:05] LABS: Large Platelets FEW; RBC Morphology Normal
--- NOTE | 2024-09-07 08:35 | DVHPN2 ---
Progress Note - Dictate Date Seen: Sep 07, 2024 Medical Necessity Reason Pt with a Central, PICC or Fol: Yes The following are medically ne: Betancourt Catheter Reason for betancourt catheter: Strict I&O Subjective Patient was seen and evaluated. She is sedated and intubated on mechanical ventilation FIO2 80%. White count is slightly better 15.5, off pressors Potassium is at 5.0 Creatinine is elevated at 4.00. 09/06 chest x-ray : Right internal jugular central venous catheter May require repositioning it appears to project posteriorly and superiorly. Clinical correlation advised. 09/04 : gall bladder US reviewed Chest US showed no evidence for right or left pleural effusion on the provided images. vital signs Vital Sign Date Time Temp Pulse Resp B/P (MAP) Pulse Ox O2 Delivery O2 Flow Rate FiO2 09/07/24 08:07 64 26 117/62 (80) 98 90 09/07/24 06:45 98.6 209.5 09/07/24 06:00 Mechanical Ventilator+ Total Intake and Output 09/06/24 09/06/24 09/07/24 15:00 23:00 07:00 Intake Total 770.382 ml 490.483 ml 550.846 ml Output Total 30 ml 220 ml Balance 770.382 ml 460.483 ml 330.846 ml medications Current Medications Medications Dose Ordered Sig/Acacia Route Start Time Stop Time Status Last Admin Dose Admin Fentanyl Citrate 250 ml @ 2.5 mls/hr Q24H IV 09/02/24 15:45 09/06/24 17:15 20 MLS/HR Propofol 100 ml @ 3.54 mls/hr Q24H IV 09/02/24 15:45 09/06/24 17:52 21.24 MLS/HR Vancomycin HCl 0 ml @ 0 mls/hr UD IV 09/02/24 18:30 Albuterol 2.5 mg Q4HWA PRN NEB 09/02/24 18:30 09/07/24 06:10 2.5 MG Ipratropium [place] 0.5 mg Q4HWA PRN NEB 09/02/24 18:30 09/07/24 06:10 0.5 MG Acetaminophen 650 mg Q4HP PRN GT 09/03/24 10:00 09/03/24 10:21 650 MG Norepinephrine Bitartrate 32 mg/ Sodium Chloride 250 ml @ 0.938 mls/ hr Q24H IV 09/03/24 12:30 09/04/24 11:10 8.438 MLS/HR Vasopressin 20 units/Sodium Chloride 100 ml @ 9 mls/hr Q11H7M IV 09/03/24 15:30 Pantoprazole Sodium 40 mg DAILY IV 09/04/24 10:00 09/06/24 10:35 40 MG Docusate Sodium 200 mg BID NG 09/06/24 22:00 09/06/24 22:18 200 MG Sennosides 17.2 mg HS PO 09/06/24 22:00 09/06/24 22:18 17.2 MG Hydrocortisone Sodium Succinate 100 mg Q12HR IV 09/06/24 22:00 09/06/24 22:18 100 MG Vancomycin HCl 100 ml @ 200 mls/hr Q12H IV 09/06/24 18:00 09/07/24 05:38 200 MLS/HR Dopamine HCl/ Dextrose 250 ml @ 8.925 mls/ hr Q24H IV 09/06/24 15:45 09/06/24 17:15 8.925 MLS/HR Ceftriaxone Sodium/Dextrose 50 ml @ 50 mls/hr DAILY IV 09/07/24 10:00 objective General intubated and sedated HEENT: Atraumatic,intubated Neck: No swelling Lungs: Equal air entry and clear to auscultation Cardiovascular: S1 S2 heard no murmur Abdomen: Soft nontender, no organomegaly, nondistended Neuro: sedated, unable to assess Psych: unable to assess laboratory and microbiology Laboratory Tests 09/07/24 03:07 Test 09/07/24 03:07 Range/Units Serum Glucose 145 H 74-106 mg/dL Assessment/Plan Patient is a 63-year-old female presented to the hospital with: Staphylococcus aureus pneumonia ( MRSA) Streptococcus Pneumoniae pneumonia Septic shock resolving bacteremia : coag neg staphylococccus Acute Respiratory Failure [requiring mechanical ventilation] severe hypoxia Metabolic acidosis FEDE Morbidly obese BMI = 40 PE history Recommendations: Continue IV Vancomycin and Continue IV Cefepime WBC trending down; cont to monitor repeat 2 sets of blood cx, Pulmonary on board for vent management Blood culture:co ag neg staph, i think its contaminated Sputum culture: Positive for Staphylococcus aureus nephrology is on board s.p HD full code prognosis very poor crit time 35 mins spent during the encounter. Thank you for consult and for giving an opportunity to take care of this patient. Dietary Evaluation Review Comments: 1. Consider EN/TPN if NPO >7days 2. Continue plan of care Expected Outcomes/Goals: 1. Pt will meet >75% of estimated needs within 2-3 days Plan discussed with: Other ANGELLA REYES MD Sep 07, 2024 08:35
--- NOTE | 2024-09-07 09:43 | DVH ---
CLINICAL INFORMATION: 63 years old, Female; [place]. TECHNIQUE: Single AP portable chest radiograph was obtained. COMPARISON: XY CHEST PORTABLE on DOS: 09/06/24, XY CHEST XRAY 1 VIEW on DOS: 09/05/24, XY CHEST ERIC BLE on DOS: 09/05/24 FINDINGS: Stable satisfactory positioning of the endotracheal tube. Enteric tube reaches the stomach and exten ds below the [id number] of the exam. Stable satisfactory positioning of the right subclavian dialy sis catheter and right internal jugular central venous catheter. Improved aeration in the left lung c ompared to the prior exam with small left pleural effusion and overlying atelectasis and/or consolida tion. Slightly increased atelectasis and/or consolidation in the right lung base. No pneumothorax. No other significant interval change. IMPRESSION: 1. Stable positioning of the endotracheal tube, enteric tube, and right-sided catheters. 2. Improved aeration in the left lung compared to the prior exam with small left pleural effusion and overlying atelectasis and/or consolidation. 3. Slightly increased atelectasis and/or consolidation in the right lung base.
[2024-09-07] MEDS: cefTRIAXone 2GM/50ML D5W 50 ML IV SCH (10:01)
--- NOTE | 2024-09-07 11:21 | DVH ---
CHEST RADIOGRAPH Indication: Right IJ repositioning Technique: Single frontal view of the chest was obtained COMPARISON: XY CHEST XRAY 1 VIEW on DOS: 09/07/24, XY CHEST PORTABLE on DOS: 09/06/24, XY CHEST XRAY 1 VIEW on DOS: 09/05/24 FINDINGS: Lines and Tubes: Endotracheal tube, enteric catheter in satisfactory position. 2 right central venou s catheters appear in satisfactory position. Lungs: Multifocal airspace disease. Pleura: No effusion. No pneumothorax. Cardiomediastinal contours: Unremarkable Bones: Unremarkable IMPRESSION: No significant interval change.
--- NOTE | 2024-09-07 12:35 | DVHPN2 ---
Progress Note Date Seen: Sep 07, 2024 Medical Necessity Reason Pt with a Central, PICC or Fol: Yes The following are medically ne: Betancourt Catheter Reason for betancourt catheter: Strict I&O Subjective Review of Systems: RESPIRATORY:Abnormal Other Systems: Patient seen and examined by myself today in follow-up Objective vital signs Vital Sign Date Time Temp Pulse Resp B/P (MAP) Pulse Ox O2 Delivery O2 Flow Rate FiO2 09/07/24 12:15 98.1 68 26 108/59 (75) 98 208.6 09/07/24 12:00 Mechanical Ventilator+ 90 90 Total Intake and Output 09/06/24 09/06/24 09/07/24 14:59 22:59 06:59 Intake Total 853.472 ml 478.745 ml 603.824 ml Output Total 30 ml 220 ml Balance 853.472 ml 448.745 ml 383.824 ml medications Current Medications Medications Dose Ordered Sig/Acacia Route Start Time Stop Time Status Last Admin Dose Admin Fentanyl Citrate 250 ml @ 2.5 mls/hr Q24H IV 09/02/24 15:45 09/06/24 17:15 20 MLS/HR Propofol 100 ml @ 3.54 mls/hr Q24H IV 09/02/24 15:45 09/07/24 11:17 21.24 MLS/HR Vancomycin HCl 0 ml @ 0 mls/hr UD IV 09/02/24 18:30 Albuterol 2.5 mg Q4HWA PRN NEB 09/02/24 18:30 09/07/24 06:10 2.5 MG Ipratropium [place] 0.5 mg Q4HWA PRN NEB 09/02/24 18:30 09/07/24 06:10 0.5 MG Acetaminophen 650 mg Q4HP PRN GT 09/03/24 10:00 09/03/24 10:21 650 MG Norepinephrine Bitartrate 32 mg/ Sodium Chloride 250 ml @ 0.938 mls/ hr Q24H IV 09/03/24 12:30 09/04/24 11:10 8.438 MLS/HR Vasopressin 20 units/Sodium Chloride 100 ml @ 9 mls/hr Q11H7M IV 09/03/24 15:30 Pantoprazole Sodium 40 mg DAILY IV 09/04/24 10:00 09/07/24 10:01 40 MG Docusate Sodium 200 mg BID NG 09/06/24 22:00 09/07/24 12:00 200 MG Sennosides 17.2 mg HS PO 09/06/24 22:00 09/06/24 22:18 17.2 MG Hydrocortisone Sodium Succinate 100 mg Q12HR IV 09/06/24 22:00 09/07/24 10:01 100 MG Vancomycin HCl 100 ml @ 200 mls/hr Q12H IV 09/06/24 18:00 09/07/24 05:38 200 MLS/HR Dopamine HCl/ Dextrose 250 ml @ 8.925 mls/ hr Q24H IV 09/06/24 15:45 09/06/24 17:15 8.925 MLS/HR Ceftriaxone Sodium/Dextrose 50 ml @ 50 mls/hr DAILY IV 09/07/24 10:00 09/07/24 10:01 50 MLS/HR Acetylcysteine 200 mg Q8HR NEB 09/07/24 14:00 UNV Examination: LUNGS:Normal, LUNGS:Abnormal, CVS:Normal, MSK:Abnormal laboratory and microbiology Laboratory Tests 09/07/24 03:07 Test 09/07/24 03:07 Range/Units Serum Glucose 145 H 74-106 mg/dL Microbiology Date/Time Source Procedure Growth Status 09/06/24 13:00 Vaginal Vaginal Culture - Preliminary Resulted 09/04/24 20:40 Nose MRSA Screen - Final Complete 09/02/24 17:44 Blood Blood Culture - Preliminary Staph hominis subsp homins Resulted 09/02/24 16:00 Urine - Bet[place] Urine Culture - Final Complete 09/02/24 15:35 Sputum Gram Stain - Final Complete 09/02/24 15:35 Respiratory Culture - Final Methicillin Resistant S.aureus Streptococcus pneumoniae Streptococcus pneumoniae#2 Complete Problem List/Assessment/Plan Problem List/Assessment/Plan Acute kidney injury superimposed Chronic Kidney Disease secondary to multifactorial, FeNa < 1%, oliguric requiring initiation of hemodialysis Acute respiratory failure, patient intubated on ventilator CKD stage IIIA? Septic shock with multiorgan involvement history of PE Hyperkalemia Vancomycin toxicity Recommendations Hemodialysis tomorrow Fluid restrictions IV antibiotic per ID consult Continue low-dose dopamine Avoid nephrotoxic DC vanco if okayed with ID consult Betancourt catheter Strict I&Os We will continue to follow Plan discussed with: Other (Nurse) My Orders My Orders Orders - ADAM MONTOYA MD Procedure Category Date Status Time Dopamine 1600mcg/Ml PHA 09/06/24 In Process D5W 15:45 Dietary Evaluation Review Comments: 1. Consider EN/TPN if NPO >7days 2. Continue plan of care Expected Outcomes/Goals: 1. Pt will meet >75% of estimated needs within 2-3 days ADAM MONTOYA MD Sep 07, 2024 12:34
[2024-09-07] MEDS: ACETYLCYSTEINE 20%(200MG/ML) SOL 4ML NEB SCH (14:10)
--- NOTE | 2024-09-07 14:36 | DVHNC2 ---
Other Procedure Procedure Bronchoscopy Operative Note Procedure Performed: 1. Flexible Bronchoscopy 2. Left lower lobe bronchial washing Anesthesia/Medication: Patient intubated and sedated Preoperative Diagnosis: Pneumonia Postoperative Diagnosis: Same Estimated Blood Loss: Less than 10 ml Consent: The risk, benefits, and alternatives of bronchoscopy were discussed with the patients who expressed understanding and agreed to proceed. Indications: Findings: No significant endobronchial lesions or abnormalities were seen. Description of the Procedure: Bronchoscope was introduced through the ET tube the bronchoscope was then inserted into the subglottic area, followed by the trachea, bilateral mainstem bronchi, and to the level of the subsegmental bronchi. There was no evidence of intrinsic or extrinsic compression. I could see mucus plug in the left lower lobe. I suctioned out the mucus plug. I did left lower lobe bronchial washings. I also suctioned out mucus from the right lower lobe. At this point, there was no evidence of any ongoing bleeding. The bronchoscope was then withdrawn and the patient was allowed to recover. Date of Service: Sep 07, 2024 Billing Provider: IVAN BRYANT MD Common Visit Codes: PROCEDURE ONLY Procedure Codes: [id number] IVAN BRYANT MD Sep 07, 2024 14:36
[2024-09-07] MEDS: LACTULOSE 20Gm/30ML SOLN PO PRN (16:41)
[2024-09-07] MEDS: Jevity 1.2 Cal/Fiber 1 Liter GT SCH (17:20)
[2024-09-07 18:26] LABS: Base Excess -2.9 mmol/L (-2.0-3.0)
[2024-09-07] MEDS: ATORVASTATIN 20 MG TAB PO SCH (20:37)
--- NOTE | 2024-09-07 21:17 | DVHPNRES ---
Progress Note Date Seen: Sep 07, 2024 Resident Creating Document: DAVID RIDDLE YENNI Has the PT tested + for MRSA If YES, has PT been informed?: Yes Medical Necessity Reason Pt with a Central, PICC or Fol: Yes The following are medically ne: Betancourt Catheter Reason for betancourt catheter: Strict I&O Subjective Review of Systems Patient seen and examined at the bedside. Patient is sedated and on mechanical ventilation. Review of system could not obtain. Patient reports: No new complaints Changes from previous H/P or p: No Changes Objective vital signs Vital Sign Date Time Temp Pulse Resp B/P (MAP) Pulse Ox O2 Delivery O2 Flow Rate FiO2 09/07/24 19:48 70 26 96/56 (69) 97 80 09/07/24 18:45 97.9 208.2 09/07/24 18:00 Mechanical Ventilator+ Total Intake and Output 09/06/24 09/06/24 09/07/24 15:00 23:00 07:00 Intake Total 770.382 ml 490.483 ml 603.824 ml Output Total 30 ml 220 ml Balance 770.382 ml 460.483 ml 383.824 ml medications Current Medications Medications Dose Ordered Sig/[place]acia Route Start Time Stop Time Status Last Admin Dose Admin Fentanyl Citrate 250 ml @ 2.5 mls/hr Q24H IV 09/02/24 15:45 09/07/24 16:55 17.5 MLS/HR Propofol 100 ml @ 3.54 mls/hr Q24H IV 09/02/24 15:45 09/07/24 18:38 24.78 MLS/HR Vancomycin HCl 0 ml @ 0 mls/hr UD IV 09/02/24 18:30 Albuterol 2.5 mg Q4HWA PRN NEB 09/02/24 18:30 09/07/24 14:10 2.5 MG Ipratropium [place] 0.5 mg Q4HWA PRN NEB 09/02/24 18:30 09/07/24 14:10 0.5 MG Acetaminophen 650 mg Q4HP PRN GT 09/03/24 10:00 09/03/24 10:21 650 MG Norepinephrine Bitartrate 32 mg/ Sodium Chloride 250 ml @ 0.938 mls/ hr Q24H IV 09/03/24 12:30 09/07/24 15:26 1.875 MLS/HR Vasopressin 20 units/Sodium Chloride 100 ml @ 9 mls/hr Q11H7M IV 09/03/24 15:30 Pantoprazole Sodium 40 mg DAILY IV 09/04/24 10:00 09/07/24 10:01 40 MG Docusate Sodium 200 mg BID NG 09/06/24 22:00 09/07/24 12:00 200 MG Sennosides 17.2 mg HS PO 09/06/24 22:00 09/06/24 22:18 17.2 MG Hydrocortisone Sodium Succinate 100 mg Q12HR IV 09/06/24 22:00 09/07/24 10:01 100 MG Dopamine HCl/ Dextrose 250 ml @ 8.925 mls/ hr Q24H IV 09/06/24 15:45 09/07/24 16:49 8.925 MLS/HR Ceftriaxone Sodium/Dextrose 50 ml @ 50 mls/hr DAILY IV 09/07/24 10:00 09/07/24 10:01 50 MLS/HR Acetylcysteine 200 mg Q8HR NEB 09/07/24 14:00 09/07/24 14:10 200 MG Atorvastatin Calcium 40 mg HS PO 09/07/24 22:00 Lactulose 30 ml Q8HR PRN PO 09/07/24 15:00 09/07/24 16:41 30 ML Enteral Nutritional Formula 1,000 ml 40ML/HR GT 09/07/24 16:30 09/07/24 17:20 1,000 ML Examination General Appearance: Patient is sedated and on mechanical ventilation. RASS score -3 (opens eyes to painful stimuli) HEENT: Atraumatic, PERRLA, EOMI, Mucous membrane moist/pink Respiratory: Clear to auscultation, Normal air movement Cardiovascular: Regular rate, Normal S1, Normal S2, No murmurs, no chest wall tenderness Abdominal: Reducible abdominal hernia Extremities: No clubbing, No cyanosis, No edema, Normal pulses, No tenderness/swelling Skin: No rashes, No breakdown, No significant lesion laboratory and microbiology Laboratory Tests 09/07/24 03:07 Test 09/07/24 03:07 Range/Units Serum Glucose 145 H 74-106 mg/dL Microbiology Date/Time Source Procedure Growth Status 09/06/24 13:00 Vaginal Vaginal Culture - Preliminary Resulted 09/04/24 20:40 Nose MRSA Screen - Final Complete 09/02/24 17:44 Blood Blood Culture - Final Staph hominis subsp homins Complete 09/02/24 16:00 Urine - Bet[place]ourt [place] Urine Culture - Final Complete 09/02/24 15:35 Sputum Gram Stain - Final Complete 09/02/24 15:35 Respiratory Culture - Final Methicillin Resistant S.aureus Streptococcus pneumoniae Streptococcus pneumoniae#2 Complete Labs and/or images reviewed: Labs reviewed by me, Image(s) reviewed by me Problem List/Assessment/Plan Problem List/Assessment/Plan NEURO: Acute metabolic encephalopathy likely due to septic shock Patient is sedated and on mechanical ventilation with RASS score -3 (opens eyes to painful stimuli) CARDIOVASCULAR: NSTEMI type 2 likely due to septic shock Cardiology on the board, recommended conservative management Echocardiogram shows mild LVH with mild LV diastolic dysfunction with ejection fraction of 65 PULMONARY: Patient is sedated and on mechanical ventilation with pressure control mode with PEEP 12 Acute Hypoxic respiratory failure, likely due to pneumonia Septic shock likely due to pneumonia Pneumonia likely due to Gram-positive Gram-negative Today the ventilator was changed to volume control mode (with a setting of TV 500, RR 26, peep 12, FiO2 90%), but patient could not tolerated and switched back to the pressure control mode Bronchoscopy performed today, showed thick mucus secretion on the left main bronchus, bronchial lavage performed and sample was sent for the sputum culture/sensitivity, Gram stain and cytology, due to high burden of mucus bronchoscopy is planned for 09/09/2024 Blood culture from 09/02/2024 shows staph hominis sensitive to vancomycin Sputum culture from 09/02/2024 shows MRSA, Streptococcus pneumoniae vancomycin Continue vancomycin and ceftriaxone Hydrocortisone 100 mg b.i.d. Continue N-acetylcysteine MRSA nares screening negative Influenza and COVID-19 screening negative Breathing treatment q.4 hours as needed GI: Abdominal ventral hernias, abdominal CT scan shows multiple ventral wall hernias containing fat and bowel with mild dilatation of proximal jejunum loops with jejunal loops course into the abdominal hernia Possible bowel obstruction, surgery consulted, recommended conservative management, suggested that small bowel series could not perform at the moment due to respiratory status of the patient Transaminitis, likely ischemic secondary to septic shock Bowel regimen: Lactulose 30 mL b.i.d., docusate and sennosides GI ppx: Protonix RENAL: Hyperkalemia, improved Hyponatremia, improved FEDE on CKD(baseline record not available), likely hemodynamically mediated Nephrology on the board, performed hemodialysis yesterday and took out 4 L, planned for hemodialysis for tomorrow Possible rhabdomyolysis, likely due to immobilization Creatinine kinase is raised at 8215 Monitoring ENDOCRINE: Hypertriglyceridemia, TG 623 Atorvastatin 40 mg ID Sputum cultures from 09/02/2024 shows MRSA, Streptococcus pneumoniae Blood culture from 09/02/2024 shows Staph hominis ID on the board, suggested that the culture results are probably due to contamination and recommended to repeat the culture Repeat blood culture Possible PID Patient has purulent vaginal discharge Vaginal bacterial culture LINES/DRAINS/ACCESS: ETT, intubated on 09/02/2024 IV access Hemodialysis catheter on the right subclavian vein, placed on 09/05/2024 Right internal jugular when CVC, placed on 09/03/2024 Left upper limb peripheral IV line, placed on 09/02/2024 Levophed 6 Dopamine to Diprivan 30 Fentanyl 200 DVT ppx: Lovenox DIET: Jevity CODE STATUS: Full code Patient's status was updated with the patient's daughter at the bedside, counseled regarding the bronchoscopy finding and the planned bronchoscopy for the 09/09/2024 Critical time spent more than 45 minutes, including patient care, chart review and updating the family. excluding any procedures. Case discussed with Dr. Beck Plan discussed with: Patient, Daughter My Orders My Orders Orders - DAVID RIDDLE RESDIRAYMOND Procedure Category Date Status Time Abg W/ Co-Ox RT 09/07/24 Logged 05:24 Chest Xray 1 View XY 09/07/24 Resulted 08:29 Blood Culture MOISES 09/07/24 In Process 08:44 Bronchosc Dx W/W/O BD 09/07/24 Transmitted Fluor&Wash 11:30 Respiratory Culture MOISES 09/07/24 In Process W/ Gs 14:38 Atorvastatin (Lipitor) PHA 09/07/24 In Process 22:00 Lactulose Oral PHA 09/07/24 In Process 15:00 Complete Blood Count LAB 09/08/24 Verified 04:00 Comprehensive LAB 09/08/24 Verified Metabolic Panel 04:00 Chest Xray 1 View XY 09/08/24 Logged 04:00 Abg W/ Co-Ox RT 09/08/24 Logged 04:00 Dietary Evaluation Review Comments: 1. Consider EN/TPN if NPO >7days 2. Continue plan of care Expected Outcomes/Goals: 1. Pt will meet >75% of estimated needs within 2-3 days Date of Service: Sep 07, 2024 Billing Provider: IVAN BECK MD Common Visit Codes: [id number] CARE 30-74 MIN DAVID RIDDLE Sep 07, 2024 21:17 IVAN BECK MD Sep 09, 2024 13:42
[2024-09-07] MEDS: ENOXAPARIN SOD 30 MG/0.3 ML SYRINGE SC ONE (22:16)
--- NOTE | 2024-09-07 22:24 | DVHPN2 ---
Progress Note - Dictate Date Seen: Sep 07, 2024 Has the PT tested + for MRSA If YES, has PT been informed?: Yes Medical Necessity Reason Pt with a Central, PICC or Fol: Yes The following are medically ne: Betancourt Catheter Reason for betancourt catheter: Strict I&O Subjective Patient was seen and evaluated in follow up in the ICU. Patient is intubated and sedated on ventilator. 80% FiO2. Bronchoscopy performed today, showed thick mucus secretion on the left main bronchus, bronchial lavage performed and sample was sent for the sputum culture/sensitivity, Gram stain and cytology, due to high burden of mucus bronchoscopy is planned for 09/09/2024. WBC 18.5. 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 vital signs Vital Sign Date Time Temp Pulse Resp B/P (MAP) Pulse Ox O2 Delivery O2 Flow Rate FiO2 09/07/24 22:17 101/55 09/07/24 21:54 69 26 97 80 09/07/24 18:45 97.9 208.2 09/07/24 18:00 Mechanical Ventilator+ Total Intake and Output 09/06/24 09/06/24 09/07/24 15:00 23:00 07:00 Intake Total 770.382 ml 490.483 ml 603.824 ml Output Total 30 ml 220 ml Balance 770.382 ml 460.483 ml 383.824 ml medications Current Medications Medications Dose Ordered Sig/Acacia Route Start Time Stop Time Status Last Admin Dose Admin Fentanyl Citrate 250 ml @ 2.5 mls/hr Q24H IV 09/02/24 15:45 09/07/24 16:55 17.5 MLS/HR Propofol 100 ml @ 3.54 mls/hr Q24H IV 09/02/24 15:45 09/07/24 22:17 24.78 MLS/HR Vancomycin HCl 0 ml @ 0 mls/hr UD IV 09/02/24 18:30 Albuterol 2.5 mg Q4HWA PRN NEB 09/02/24 18:30 09/07/24 21:53 2.5 MG Ipratropium [place] 0.5 mg Q4HWA PRN NEB 09/02/24 18:30 09/07/24 14:10 0.5 MG Acetaminophen 650 mg Q4HP PRN GT 09/03/24 10:00 09/03/24 10:21 650 MG Norepinephrine Bitartrate 32 mg/ Sodium Chloride 250 ml @ 0.938 mls/ hr Q24H IV 09/03/24 12:30 09/07/24 15:26 1.875 MLS/HR Vasopressin 20 units/Sodium Chloride 100 ml @ 9 mls/hr Q11H7M IV 09/03/24 15:30 Pantoprazole Sodium 40 mg DAILY IV 09/04/24 10:00 09/07/24 10:01 40 MG Docusate Sodium 200 mg BID NG 09/06/24 22:00 09/07/24 20:37 200 MG Sennosides 17.2 mg HS PO 09/06/24 22:00 09/07/24 20:37 17.2 MG Hydrocortisone Sodium Succinate 100 mg Q12HR IV 09/06/24 22:00 09/07/24 20:36 100 MG Dopamine HCl/ Dextrose 250 ml @ 8.925 mls/ hr Q24H IV 09/06/24 15:45 09/07/24 16:49 8.925 MLS/HR Ceftriaxone Sodium/Dextrose 50 ml @ 50 mls/hr DAILY IV 09/07/24 10:00 09/07/24 10:01 50 MLS/HR Acetylcysteine 200 mg Q8HR NEB 09/07/24 14:00 09/07/24 21:53 200 MG Atorvastatin Calcium 40 mg HS PO 09/07/24 22:00 09/07/24 20:37 40 MG Lactulose 30 ml Q8HR PRN PO 09/07/24 15:00 09/07/24 16:41 30 ML Enteral Nutritional Formula 1,000 ml 40ML/HR GT 09/07/24 16:30 09/07/24 17:20 1,000 ML Enoxaparin Sodium 30 mg DAILY SC 09/08/24 10:00 objective GENERAL: Intubated on ventilator. Morbidly obese LUNGS: Decreased breath sounds. CARDIOVASCULAR: Heart sounds are good. ABDOMEN: Soft. Morbid pannus limited physical palpation. SKIN: Multiple scars to abdomen. Two open areas on abdomen with oozing wounds. laboratory and microbiology Laboratory Tests 09/07/24 03:07 Test 09/07/24 03:07 Range/Units Serum Glucose 145 H 74-106 mg/dL Problem List Septic shock. Acute on chronic respiratory failure. NSTEMI type II secondary to above. Rule out structural heart disease. Prolonged QT interval. Morbid obesity, Class 3. Assessment/Plan Continued all current supportive medical care. IV antibiotics as ordered. Vasopressors for hemodynamic support. GI prophylactics. Additional plan as per the hospital course. Critical care time of 45 minutes provided to include time spent evaluation of patient at bedside, when appropriate patient/family education for diagnosis, treatment plan, review of pertinent medical information and discussion of care with specialty providers and PCP. Mechanical ventilator parameters, treatment and adjustments have personally been reviewed by me and treatment plan by clutch operator has also been reviewed. Dietary Evaluation Review Comments: 1. Consider EN/TPN if NPO >7days 2. Continue plan of care Expected Outcomes/Goals: 1. Pt will meet >75% of estimated needs within 2-3 days Plan discussed with: Other RELL STEWART MD Sep 07, 2024 22:24
[2024-09-08] VITALS (110 sets, daily range): BP systolic 88–158; BP diastolic 48–73; PULSE 61–86; RESP 14–27; TEMP 97.7–99.3; O2SAT 75–99
[2024-09-08 04:21] LABS: Hematocrit 39.7 % (36.0-46.0); Hemoglobin 13.3 g/dL (12.2-16.2); Mean Corpuscular Hemoglobin 29.5 pg (28.0-32.0); Mean Corpuscular Hgb Conc. 33.6 g/dL (32.0-36.0); Mean Corpuscular Volume 87.8 fL (80.0-100.0); Platelet Count (auto) 211 10^3/uL (140-450); Red Blood Cells 4.52 10^6/uL (4.0-5.20); Red Cell Distribution Width 13.8 % (11.8-14.3); White Blood Cell 17.2 10^3/uL (4.4-10.8)
[2024-09-08 04:24] LABS: Basophils % (manual) 0 (0.0-2.0); Blast Cells 0; Eosinophils % (manual) 0 (0-7); Metamyelocytes % 0; Myelocytes % 0; Promyelocytes % 0; Reactive Lymphocytes 0
[2024-09-08 04:41] LABS: Alanine Aminotransferase 74 U/L (7-40); Alkaline Phosphatase 108 U/L (46-116); Anion Gap 16 (5-15); BUN/Creatinine Ratio 18.7 (10.0-20.0); Carbon Dioxide 22 mmol/L (20-31); Chloride 100 mmol/L (98-107); Glucose 120 mg/dL (74-106); Potassium 4.8 mmol/L (3.5-5.1); Sodium 138 mmol/L (136-145)
[2024-09-08 04:42] LABS: Albumin 3.7 g/dL (3.2-4.8); Aspartate Aminotransferase 89 U/L (13-40); Bilirubin, Total 0.4 mg/dL (0.2-1.0); Total Protein 5.9 g/dL (5.7-8.2)
--- NOTE | 2024-09-08 04:47 | DVH ---
CHEST RADIOGRAPH Indication: Pneumonia Technique: Single frontal view of the chest was obtained COMPARISON: XY CHEST XRAY 1 VIEW on DOS: 09/07/24, XY CHEST XRAY 1 VIEW on DOS: 09/07/24, XY CHEST PO RTABLE on DOS: 09/06/24 FINDINGS: Lines and Tubes: Endotracheal tube, enteric catheter and right central venous catheter is in satisfac tory position. Lungs: Left lower lobe airspace disease. Pleura: Small left pleural effusion. No pneumothorax. Cardiomediastinal contours: Unremarkable Bones: Unremarkable IMPRESSION: Lines and tubes in satisfactory position. No significant interval change.
[2024-09-08 04:50] LABS: Blood Urea Nitrogen 99 mg/dL (9-23)
[2024-09-08 06:45] LABS: Base Excess -3.6 mmol/L (-2.0-3.0)
[2024-09-08] MEDS: SODIUM CHL 0.9% 1000 ML BAG XX ONE (07:00)
[2024-09-08 07:18] LABS: Band Neutrophils % (manual) 7
[2024-09-08 07:19] LABS: Platelet Estimate Adequate
[2024-09-08 07:20] LABS: RBC Morphology Normal
[2024-09-08 07:26] LABS: Lymphocytes % (manual) 7 (10.0-50.0); Monocytes % (manual) 7 (0-12)
--- NOTE | 2024-09-08 09:41 | DVHPN2 ---
Progress Note Date Seen: Sep 08, 2024 Has the PT tested + for MRSA If YES, has PT been informed?: Yes Medical Necessity Reason Pt with a Central, PICC or Fol: Yes The following are medically ne: Betancourt Catheter Reason for betancourt catheter: Strict I&O Subjective Review of Systems: RESPIRATORY:Abnormal Other Systems: Patient seen and examined by myself today in follow-up, patient remained intubated on ventilator Patient examined hemodialysis, blood pressure stable Objective vital signs Vital Sign Date Time Temp Pulse Resp B/P (MAP) Pulse Ox O2 Delivery O2 Flow Rate FiO2 09/08/24 09:07 71 26 110/56 (74) 94 100 09/08/24 08:00 Mechanical Ventilator+ 09/08/24 06:00 98.1 208.6 Total Intake and Output 09/07/24 09/07/24 09/08/24 15:00 23:00 07:00 Intake Total 468.196 ml 475.898 ml 556.508 ml Output Total 140 ml 100 ml Balance 468.196 ml 335.898 ml 456.508 ml medications Current Medications Medications Dose Ordered Sig/Acacia Route Start Time Stop Time Status Last Admin Dose Admin Fentanyl Citrate 250 ml @ 2.5 mls/hr Q24H IV 09/02/24 15:45 09/08/24 05:10 20 MLS/HR Propofol 100 ml @ 3.54 mls/hr Q24H IV 09/02/24 15:45 09/08/24 05:04 24.78 MLS/HR Vancomycin HCl 0 ml @ 0 mls/hr UD IV 09/02/24 18:30 Albuterol 2.5 mg Q4HWA PRN NEB 09/02/24 18:30 09/08/24 05:51 2.5 MG Ipratropium [place] 0.5 mg Q4HWA PRN NEB 09/02/24 18:30 09/08/24 05:51 0.5 MG Acetaminophen 650 mg Q4HP PRN GT 09/03/24 10:00 09/03/24 10:21 650 MG Norepinephrine Bitartrate 32 mg/ Sodium Chloride 250 ml @ 0.938 mls/ hr Q24H IV 09/03/24 12:30 09/07/24 15:26 1.875 MLS/HR Vasopressin 20 units/Sodium Chloride 100 ml @ 9 mls/hr Q11H7M IV 09/03/24 15:30 Pantoprazole Sodium 40 mg DAILY IV 09/04/24 10:00 09/07/24 10:01 40 MG Docusate Sodium 200 mg BID NG 09/06/24 22:00 09/07/24 20:37 200 MG Sennosides 17.2 mg HS PO 09/06/24 22:00 09/07/24 20:37 17.2 MG Hydrocortisone Sodium Succinate 100 mg Q12HR IV 09/06/24 22:00 09/07/24 20:36 100 MG Dopamine HCl/ Dextrose 250 ml @ 8.925 mls/ hr Q24H IV 09/06/24 15:45 09/07/24 16:49 8.925 MLS/HR Ceftriaxone Sodium/Dextrose 50 ml @ 50 mls/hr DAILY IV 09/07/24 10:00 09/07/24 10:01 50 MLS/HR Acetylcysteine 200 mg Q8HR NEB 09/07/24 14:00 09/08/24 05:51 200 MG Atorvastatin Calcium 40 mg HS PO 09/07/24 22:00 09/07/24 20:37 40 MG Enteral Nutritional Formula 1,000 ml 40ML/HR GT 09/07/24 16:30 09/07/24 17:20 1,000 ML Enoxaparin Sodium 30 mg DAILY SC 09/08/24 10:00 Lactulose 30 ml Q8HR PO 09/08/24 09:45 UNV Examination: LUNGS:Normal, CVS:Normal, MSK:Normal laboratory and microbiology Laboratory Tests 09/08/24 03:23 Test 09/08/24 03:23 Range/Units Serum Glucose 120 H 74-106 mg/dL Microbiology Date/Time Source Procedure Growth Status 09/06/24 13:00 Vaginal Vaginal Culture - Preliminary Resulted 09/04/24 20:40 Nose MRSA Screen - Final Complete 09/02/24 17:44 Blood Blood Culture - Final Staph hominis subsp homins Complete 09/02/24 16:00 Urine - [place] Urine Culture - Final Complete 09/02/24 15:35 Sputum Gram Stain - Final Complete 09/02/24 15:35 Respiratory Culture - Final Methicillin Resistant S.aureus Streptococcus pneumoniae Streptococcus pneumoniae#2 Complete Problem List/Assessment/Plan Problem List/Assessment/Plan Acute kidney injury superimposed Chronic Kidney Disease secondary to multifactorial, FeNa < 1%, oliguric requiring initiation of hemodialysis Acute respiratory failure, patient intubated on ventilator CKD stage IIIA? Septic shock with multiorgan involvement history of PE Hyperkalemia Vancomycin toxicity Recommendations Continue with UF 1-2 L as tolerated Albumin 25% with hemodialysis IV pressors for blood pressure support Fluid restrictions IV antibiotic per ID consult Continue low-dose dopamine Avoid nephrotoxic DC vanco if okayed with ID consult Betancourt catheter Strict I&Os We will continue to follow Plan discussed with: Other (Nurse) My Orders My Orders Orders - ADAM MONTOYA MD Procedure Category Date Status Time Hemodialysis Orders ORDERS 09/08/24 Transmitted 07:00 Dialysis Nursing SIMRAN 09/08/24 In Process Message 07:00 Document Fluid Input [facility] 09/08/24 In Process And Outpu 07:00 Dietary Evaluation Review Comments: 1. Consider EN/TPN if NPO >7days 2. Continue plan of care Expected Outcomes/Goals: 1. Pt will meet >75% of estimated needs within 2-3 days ADAM MONTOYA MD Sep 08, 2024 09:41
[2024-09-08] MEDS: LACTULOSE 20Gm/30ML SOLN PO SCH (10:07)
[2024-09-08] MEDS: ENOXAPARIN SOD 30 MG/0.3 ML SYRINGE SC SCH (10:08)
[2024-09-08] MEDS ORDERED: GLYCOPYRROLATE 0.2 MG/ML 1ML VIAL ONE (10:47)
[2024-09-08] MEDS ORDERED: fentaNYL CITRATE 100 MCG/2 ML VL ONE (10:49)
[2024-09-08] MEDS ORDERED: MIDAZOLAM HCL 5 MG/ML-1ML VIAL ONE (10:49)
[2024-09-08] MEDS: LIDOCAINE 2%HCL (LOCAL ANESTH.) INJ 10ml MDV ONE (10:52)
[2024-09-08] MEDS: EPINEPHrine HCL 1 MG/1 ML AMP ONE (10:53)
[2024-09-08] MEDS: LIDOCAINE 2% JELLY 11ml (GLYDO) ONE (10:53)
--- NOTE | 2024-09-08 11:17 | DVHPN2 ---
Progress Note - Dictate Date Seen: Sep 08, 2024 Has the PT tested + for MRSA If YES, has PT been informed?: Yes Medical Necessity Reason Pt with a Central, PICC or Fol: Yes The following are medically ne: Betancourt Catheter Reason for betancourt catheter: Strict I&O Subjective Patient was seen and evaluated. She is sedated and intubated on mechanical ventilation. Patient examined hemodialysis, blood pressure stable. White count trending up, currently at 17.2, off pressors Potassium is at 4.8 Creatinine is elevated at 5.29. 09/08 chest x-ray : No interval change. 09/04 : gall bladder US reviewed Chest US showed no evidence for right or left pleural effusion on the provided images. vital signs Vital Sign Date Time Temp Pulse Resp B/P (MAP) Pulse Ox O2 Delivery O2 Flow Rate FiO2 09/08/24 10:40 71 26 104/55 (71) 95 90 09/08/24 08:00 Mechanical Ventilator+ 09/08/24 06:00 98.1 208.6 Total Intake and Output 09/07/24 09/07/24 09/08/24 15:00 23:00 07:00 Intake Total 468.196 ml 475.898 ml 556.508 ml Output Total 140 ml 100 ml Balance 468.196 ml 335.898 ml 456.508 ml medications Current Medications Medications Dose Ordered Sig/Acacia Route Start Time Stop Time Status Last Admin Dose Admin Fentanyl Citrate 250 ml @ 2.5 mls/hr Q24H IV 09/02/24 15:45 09/08/24 05:10 20 MLS/HR Propofol 100 ml @ 3.54 mls/hr Q24H IV 09/02/24 15:45 09/08/24 05:04 24.78 MLS/HR Vancomycin HCl 0 ml @ 0 mls/hr UD IV 09/02/24 18:30 Albuterol 2.5 mg Q4HWA PRN NEB 09/02/24 18:30 09/08/24 05:51 2.5 MG Ipratropium [place] 0.5 mg Q4HWA PRN NEB 09/02/24 18:30 09/08/24 05:51 0.5 MG Acetaminophen 650 mg Q4HP PRN GT 09/03/24 10:00 09/03/24 10:21 650 MG Norepinephrine Bitartrate 32 mg/ Sodium Chloride 250 ml @ 0.938 mls/ hr Q24H IV 09/03/24 12:30 09/07/24 15:26 1.875 MLS/HR Vasopressin 20 units/Sodium Chloride 100 ml @ 9 mls/hr Q11H7M IV 09/03/24 15:30 Pantoprazole Sodium 40 mg DAILY IV 09/04/24 10:00 09/08/24 10:07 40 MG Docusate Sodium 200 mg BID NG 09/06/24 22:00 09/08/24 10:07 200 MG Sennosides 17.2 mg HS PO 09/06/24 22:00 09/07/24 20:37 17.2 MG Hydrocortisone Sodium Succinate 100 mg Q12HR IV 09/06/24 22:00 09/08/24 10:07 100 MG Dopamine HCl/ Dextrose 250 ml @ 8.925 mls/ hr Q24H IV 09/06/24 15:45 09/07/24 16:49 8.925 MLS/HR Ceftriaxone Sodium/Dextrose 50 ml @ 50 mls/hr DAILY IV 09/07/24 10:00 09/08/24 10:07 50 MLS/HR Acetylcysteine 200 mg Q8HR NEB 09/07/24 14:00 09/08/24 05:51 200 MG Atorvastatin Calcium 40 mg HS PO 09/07/24 22:00 09/07/24 20:37 40 MG Enteral Nutritional Formula 1,000 ml 40ML/HR GT 09/07/24 16:30 09/07/24 17:20 1,000 ML Enoxaparin Sodium 30 mg DAILY SC 09/08/24 10:00 09/08/24 10:08 30 MG Lactulose 30 ml Q8HR PO 09/08/24 09:45 09/08/24 10:07 30 ML objective General intubated and sedated HEENT: Atraumatic,intubated Neck: No swelling Lungs: Equal air entry and clear to auscultation Cardiovascular: S1 S2 heard no murmur Abdomen: Soft nontender, no organomegaly, nondistended Neuro: sedated, unable to assess Psych: unable to assess laboratory and microbiology Laboratory Tests 09/08/24 03:23 Test 09/08/24 03:23 Range/Units Serum Glucose 120 H 74-106 mg/dL Assessment/Plan Patient is a 63-year-old female presented to the hospital with: Staphylococcus aureus pneumonia ( MRSA) Streptococcus Pneumoniae pneumonia Septic shock resolving bacteremia : coag neg staphylococccus Acute Respiratory Failure [requiring mechanical ventilation] severe hypoxia Metabolic acidosis FEDE Morbidly obese BMI = 40 PE history Recommendations: Continue IV Vancomycin and Continue IV Cefepime WBC trending down; cont to monitor repeat 2 sets of blood cx, Pulmonary on board for vent management Blood culture:co ag neg staph, i think its contaminated. Recent on 09/07 showed no growth Sputum culture: Positive for Staphylococcus aureus nephrology is on board s.p HD Vaginal culture: Positive full code prognosis very poor crit time 35 mins spent during the encounter. Thank you for consult and for giving an opportunity to take care of this patient. Dietary Evaluation Review Comments: 1. Consider EN/TPN if NPO >7days 2. Continue plan of care Expected Outcomes/Goals: 1. Pt will meet >75% of estimated needs within 2-3 days Plan discussed with: Other ANGELLA REYES MD Sep 08, 2024 11:17
--- NOTE | 2024-09-08 14:24 | DVHNC2 ---
Other Procedure Procedure Bronchoscopy Operative Note Procedure Performed: 1. Flexible Bronchoscopy 2. Left lower lobe bronchial washing Anesthesia/Medication: Patient intubated and sedated Preoperative Diagnosis: Pneumonia Postoperative Diagnosis: Same Estimated Blood Loss: Less than 10 ml Consent: The risk, benefits, and alternatives of bronchoscopy were discussed with the patients who expressed understanding and agreed to proceed. Indications: Findings: No significant endobronchial lesions or abnormalities were seen. Description of the Procedure: Bronchoscope was introduced through the ET tube the bronchoscope was then inserted into the subglottic area, followed by the trachea, bilateral mainstem bronchi, and to the level of the subsegmental bronchi. There was no evidence of intrinsic or extrinsic compression. I could see mucus plug in the left lower lobe which had improved from earlier bronchoscopy. I suctioned out the mucus plug. I did left lower lobe bronchial washings. At this point, there was no evidence of any ongoing bleeding. The bronchoscope was then withdrawn and the patient was allowed to recover. Date of Service: Sep 08, 2024 Billing Provider: IVAN BRYANT MD Common Visit Codes: PROCEDURE ONLY Procedure Codes: [id number] IVAN BRYANT MD Sep 08, 2024 14:24
[2024-09-08] MEDS: ALBUMIN 25% 100 ML IV SCH (14:44)
--- NOTE | 2024-09-08 20:19 | DVHPN2 ---
Progress Note - Dictate Date Seen: Sep 08, 2024 Has the PT tested + for MRSA If YES, has PT been informed?: Yes Medical Necessity Reason Pt with a Central, PICC or Fol: Yes The following are medically ne: Betancourt Catheter Reason for betancourt catheter: Strict I&O Subjective Patient was seen and evaluated in follow up in the ICU. Patient is intubated and sedated on ventilator. 85% FiO2. Patient received HD today. Respiratory culture is growing normal Oropharyngeal [place]la. Chest x-ray is unchanged. WBC 17.2, BUN 99, IMMIGRATION SPECIALIST 5.29, AST 89 ALT 74, Creatine kinase 2384. vital signs Vital Sign Date Time Temp Pulse Resp B/P (MAP) Pulse Ox O2 Delivery O2 Flow Rate FiO2 09/08/24 12:29 77 26 100/53 (69) 95 85 09/08/24 12:00 Mechanical Ventilator+ 09/08/24 06:00 98.1 208.6 Total Intake and Output 09/07/24 09/07/24 09/08/24 15:00 23:00 07:00 Intake Total 468.196 ml 475.898 ml 556.508 ml Output Total 140 ml 100 ml Balance 468.196 ml 335.898 ml 456.508 ml medications Current Medications Medications Dose Ordered Sig/[place]acia Route Start Time Stop Time Status Last Admin Dose Admin Fentanyl Citrate 250 ml @ 2.5 mls/hr Q24H IV 09/02/24 15:45 09/08/24 05:10 20 MLS/HR Propofol 100 ml @ 3.54 mls/hr Q24H IV 09/02/24 15:45 09/08/24 05:04 24.78 MLS/HR Vancomycin HCl 0 ml @ 0 mls/hr UD IV 09/02/24 18:30 Albuterol 2.5 mg Q4HWA PRN NEB 09/02/24 18:30 09/08/24 05:51 2.5 MG Ipratropium [place] 0.5 mg Q4HWA PRN NEB 09/02/24 18:30 09/08/24 05:51 0.5 MG Acetaminophen 650 mg Q4HP PRN GT 09/03/24 10:00 09/03/24 10:21 650 MG Norepinephrine Bitartrate 32 mg/ Sodium Chloride 250 ml @ 0.938 mls/ hr Q24H IV 09/03/24 12:30 09/07/24 15:26 1.875 MLS/HR Vasopressin 20 units/Sodium Chloride 100 ml @ 9 mls/hr Q11H7M IV 09/03/24 15:30 Pantoprazole Sodium 40 mg DAILY IV 09/04/24 10:00 09/08/24 10:07 40 MG Docusate Sodium 200 mg BID NG 09/06/24 22:00 09/08/24 10:07 200 MG Sennosides 17.2 mg HS PO 09/06/24 22:00 09/07/24 20:37 17.2 MG Hydrocortisone Sodium Succinate 100 mg Q12HR IV 09/06/24 22:00 09/08/24 10:07 100 MG Dopamine HCl/ Dextrose 250 ml @ 8.925 mls/ hr Q24H IV 09/06/24 15:45 09/07/24 16:49 8.925 MLS/HR Ceftriaxone Sodium/Dextrose 50 ml @ 50 mls/hr DAILY IV 09/07/24 10:00 09/08/24 10:07 50 MLS/HR Acetylcysteine 200 mg Q8HR NEB 09/07/24 14:00 09/08/24 05:51 200 MG Atorvastatin Calcium 40 mg HS PO 09/07/24 22:00 09/07/24 20:37 40 MG Enteral Nutritional Formula 1,000 ml 40ML/HR GT 09/07/24 16:30 09/07/24 17:20 1,000 ML Enoxaparin Sodium 30 mg DAILY SC 09/08/24 10:00 09/08/24 10:08 30 MG Lactulose 30 ml Q8HR PO 09/08/24 09:45 09/08/24 10:07 30 ML objective GENERAL: Intubated on ventilator. Morbidly obese LUNGS: Decreased breath sounds. CARDIOVASCULAR: Heart sounds are good. ABDOMEN: Soft. Morbid pannus limited physical palpation. SKIN: Multiple scars to abdomen. Two open areas on abdomen with oozing wounds. laboratory and microbiology Laboratory Tests 09/08/24 03:23 Test 09/08/24 03:23 Range/Units Serum Glucose 120 H 74-106 mg/dL Problem List Septic shock. Acute on chronic respiratory failure. NSTEMI type II secondary to above. Rule out structural heart disease. Prolonged QT interval. Morbid obesity, Class 3. Assessment/Plan Continued all current supportive medical care. IV antibiotics as ordered. Vasopressors for hemodynamic support. GI prophylactics. Additional plan as per the hospital course. Critical care time of 45 minutes provided to include time spent evaluation of patient at bedside, when appropriate patient/family education for diagnosis, treatment plan, review of pertinent medical information and discussion of care with specialty providers and PCP. Mechanical ventilator parameters, treatment and adjustments have personally been reviewed by me and treatment plan by office electrician has also been reviewed. Dietary Evaluation Review Comments: 1. Consider EN/TPN if NPO >7days 2. Continue plan of care Expected Outcomes/Goals: 1. Pt will meet >75% of estimated needs within 2-3 days Plan discussed with: Other RELL STEWART MD Sep 08, 2024 13:46
--- NOTE | 2024-09-08 20:33 | DVHPNRES ---
Progress Note Date Seen: Sep 08, 2024 Resident Creating Document: DAVID RIDDLE RESNEPTALIENT Has the PT tested + for MRSA If YES, has PT been informed?: Yes Medical Necessity Reason Pt with a Central, PICC or Fol: Yes The following are medically ne: Betancourt Catheter Reason for betancourt catheter: Strict I&O Subjective Review of Systems Patient seen and examined at the bedside. Patient is sedated and on mechanical ventilation. Review of system could not obtain. Objective vital signs Vital Sign Date Time Temp Pulse Resp B/P (MAP) Pulse Ox O2 Delivery O2 Flow Rate FiO2 09/08/24 19:34 115/56 09/08/24 19:03 65 26 98 70 09/08/24 18:45 98.4 209.1 09/08/24 18:00 Mechanical Ventilator+ Total Intake and Output 09/07/24 09/07/24 09/08/24 15:00 23:00 07:00 Intake Total 468.196 ml 475.898 ml 611.151 ml Output Total 140 ml 100 ml Balance 468.196 ml 335.898 ml 511.151 ml medications Current Medications Medications Dose Ordered Sig/Acacia Route Start Time Stop Time Status Last Admin Dose Admin Fentanyl Citrate 250 ml @ 2.5 mls/hr Q24H IV 09/02/24 15:45 09/08/24 19:34 15 MLS/HR Propofol 100 ml @ 3.54 mls/hr Q24H IV 09/02/24 15:45 09/08/24 16:22 21.24 MLS/HR Vancomycin HCl 0 ml @ 0 mls/hr UD IV 09/02/24 18:30 Albuterol 2.5 mg Q4HWA PRN NEB 09/02/24 18:30 09/08/24 14:58 2.5 MG Ipratropium [place] 0.5 mg Q4HWA PRN NEB 09/02/24 18:30 09/08/24 14:58 0.5 MG Acetaminophen 650 mg Q4HP PRN GT 09/03/24 10:00 09/03/24 10:21 650 MG Norepinephrine Bitartrate 32 mg/ Sodium Chloride 250 ml @ 0.938 mls/ hr Q24H IV 09/03/24 12:30 09/07/24 15:26 1.875 MLS/HR Vasopressin 20 units/Sodium Chloride 100 ml @ 9 mls/hr Q11H7M IV 09/03/24 15:30 Pantoprazole Sodium 40 mg DAILY IV 09/04/24 10:00 09/08/24 10:07 40 MG Docusate Sodium 200 mg BID NG 09/06/24 22:00 09/08/24 10:07 200 MG Sennosides 17.2 mg HS PO 09/06/24 22:00 09/07/24 20:37 17.2 MG Hydrocortisone Sodium Succinate 100 mg Q12HR IV 09/06/24 22:00 09/08/24 10:07 100 MG Dopamine HCl/ Dextrose 250 ml @ 8.925 mls/ hr Q24H IV 09/06/24 15:45 09/07/24 16:49 8.925 MLS/HR Ceftriaxone Sodium/Dextrose 50 ml @ 50 mls/hr DAILY IV 09/07/24 10:00 09/08/24 10:07 50 MLS/HR Acetylcysteine 200 mg Q8HR NEB 09/07/24 14:00 09/08/24 14:53 200 MG Atorvastatin Calcium 40 mg HS PO 09/07/24 22:00 09/07/24 20:37 40 MG Enteral Nutritional Formula 1,000 ml 40ML/HR GT 09/07/24 16:30 09/07/24 17:20 1,000 ML Enoxaparin Sodium 30 mg DAILY SC 09/08/24 10:00 09/08/24 10:08 30 MG Lactulose 30 ml Q8HR PO 09/08/24 09:45 09/08/24 15:00 30 ML Examination Patient seen and examined at the bedside. Patient is sedated and on mechanical ventilation. Review of system could not obtain. laboratory and microbiology Laboratory Tests 09/08/24 03:23 Test 09/08/24 03:23 Range/Units Serum Glucose 120 H 74-106 mg/dL Microbiology Date/Time Source Procedure Growth Status 09/07/24 11:18 Bronchial Washings Gram Stain - Final Resulted 09/07/24 11:18 Bronchial Washings Respiratory Culture - Preliminary Resulted 09/07/24 09:28 Blood Blood Culture - Preliminary NO GROWTH AFTER 24 HOURS OF INCUBATION. Resulted 09/06/24 13:00 Vaginal Vaginal Culture - Preliminary Resulted 09/04/24 20:40 Nose MRSA Screen - Final Complete 09/02/24 16:00 Urine - [place] Urine Culture - Final Complete Labs and/or images reviewed: Labs reviewed by me, Image(s) reviewed by me Problem List/Assessment/Plan Problem List/Assessment/Plan NEURO: Acute metabolic encephalopathy likely due to septic shock Patient is sedated and on mechanical ventilation with RASS score -4 (opens eyes to painful stimuli) CARDIOVASCULAR: NSTEMI type 2 likely due to septic shock Cardiology on the board, recommended conservative management Echocardiogram shows mild LVH with mild LV diastolic dysfunction with ejection fraction of 65 PULMONARY: Patient is sedated and on mechanical ventilation with pressure control mode with PEEP 10, RR 26, FiO2 80% Acute Hypoxic respiratory failure, likely due to pneumonia Septic shock likely due to pneumonia Pneumonia likely due to Gram-positive Gram-negative Bronchoscopy repeated today today, showed mucus secretion on the left main bronchus, bronchial lavage performed and sample was sent for the sputum culture/sensitivity, Gram stain and cytology, secretion was less than compared to yesterday bronchoscopy find Blood culture from 09/02/2024 shows staph hominis sensitive to vancomycin Sputum culture from 09/02/2024 shows MRSA, Streptococcus pneumoniae vancomycin Continue vancomycin and ceftriaxone Hydrocortisone 100 mg b.i.d. Continue N-acetylcysteine MRSA nares screening negative Influenza and COVID-19 screening negative Breathing treatment q.4 hours as needed GI: Abdominal ventral hernias, abdominal CT scan shows multiple ventral wall hernias containing fat and bowel with mild dilatation of proximal jejunum loops with jejunal loops course into the abdominal hernia Possible bowel obstruction, surgery consulted, recommended conservative management, suggested that small bowel series could not perform at the moment due to respiratory status of the patient Transaminitis, likely ischemic secondary to septic shock Bowel regimen: Lactulose 30 mL t.i.d., docusate and sennosides GI ppx: Protonix RENAL: Hyperkalemia, improved Hyponatremia, improved FEDE on CKD(baseline record not available), likely hemodynamically mediated Nephrology on the board, performed hemodialysis and taken out 2 L of fluids Possible rhabdomyolysis, likely due to immobilization Creatinine kinase is raised at 8215 Monitoring ENDOCRINE: Hypertriglyceridemia, TG 623 Atorvastatin 40 mg ID Sputum cultures from 09/02/2024 shows MRSA, Streptococcus pneumoniae Blood culture from 09/02/2024 shows Staph hominis Results from bronchial washing, from 09/07/2024 shows no growth after 24 hours ID on the board, suggested that the culture results are probably due to contamination and recommended to repeat the culture Repeat blood culture Possible PID Patient has purulent vaginal discharge Vaginal bacterial culture, shows coagulase-negative Staphylococcus with few growth of possible Enterococcus species LINES/DRAINS/ACCESS: ETT, intubated on 09/02/2024 IV access Hemodialysis catheter on the right subclavian vein, placed on 09/05/2024 Right internal jugular when CVC, placed on 09/03/2024 Left upper limb peripheral IV line, placed on 09/02/2024 Levophed 10 Dopamine 2 Diprivan 30 Fentanyl 175 DVT ppx: Lovenox DIET: Jevity, 40 mL/hour CODE STATUS: Full code Patient's status was updated with the patient's daughter on the phone, counseled regarding the bronchoscopy finding. Critical time spent more than 45 minutes, including patient care, chart review and updating the family. excluding any procedures. Case discussed with Dr. Beck Plan discussed with: Daughter, Other (RN) My Orders My Orders Orders - DAVID RIDDLE Procedure Category Date Status Time Enoxaparin Sodium PHA 09/08/24 In Process (Lovenox) 10:00 Lactulose Oral PHA 09/08/24 In Process 09:45 Communication Order ORDERS 09/08/24 Transmitted 09:36 Bronchosc Dx W/W/O BD 09/08/24 Transmitted Fluor&Wash 13:01 Complete Blood Count LAB 09/09/24 Verified 04:00 Comprehensive LAB 09/09/24 Verified Metabolic Panel 04:00 Chest Xray 1 View XY 09/09/24 Logged 04:00 Abg W/ Co-Ox RT 09/09/24 Logged 04:00 Dietary Evaluation Review Comments: 1. Consider EN/TPN if NPO >7days 2. Continue plan of care Expected Outcomes/Goals: 1. Pt will meet >75% of estimated needs within 2-3 days Date of Service: Sep 08, 2024 Billing Provider: IVAN BECK MD Common Visit Codes: [id number] CARE 30-74 MIN DAVID RIDDLE RESDIRAYMOND Sep 08, 2024 20:33 IVAN BECK MD Sep 09, 2024 13:51
[2024-09-09] VITALS (109 sets, daily range): BP systolic 95–142; BP diastolic 49–67; PULSE 54–77; RESP 22–27; TEMP 97.9–99; O2SAT 87–100
[2024-09-09 04:15] LABS: Hematocrit 38.1 % (36.0-46.0); Hemoglobin 12.9 g/dL (12.2-16.2); Mean Corpuscular Hemoglobin 29.6 pg (28.0-32.0); Mean Corpuscular Volume 87.3 fL (80.0-100.0); Platelet Count (auto) 238 10^3/uL (140-450); Red Blood Cells 4.36 10^6/uL (4.0-5.20); Red Cell Distribution Width 13.8 % (11.8-14.3); White Blood Cell 20.5 10^3/uL (4.4-10.8)
[2024-09-09 04:18] LABS: Basophils % (manual) 0 (0.0-2.0); Blast Cells 0; Eosinophils % (manual) 0 (0-7); Metamyelocytes % 0; Myelocytes % 0; Promyelocytes % 0; Reactive Lymphocytes 0
[2024-09-09 04:20] LABS: Alkaline Phosphatase 98 U/L (46-116); Anion Gap 16 (5-15); BUN/Creatinine Ratio 17.9 (10.0-20.0); Calcium 9.3 mg/dL (8.7-10.4); Carbon Dioxide 22 mmol/L (20-31); Chloride 101 mmol/L (98-107); Potassium 4.3 mmol/L (3.5-5.1); Sodium 139 mmol/L (136-145)
[2024-09-09 04:21] LABS: Albumin 3.8 g/dL (3.2-4.8); Bilirubin, Total 0.5 mg/dL (0.2-1.0); Total Protein 6.1 g/dL (5.7-8.2)
[2024-09-09 04:26] LABS: Alanine Aminotransferase 55 U/L (7-40); Aspartate Aminotransferase 54 U/L (13-40); Blood Urea Nitrogen 77 mg/dL (9-23); Glucose 117 mg/dL (74-106)
[2024-09-09 05:03] LABS: Band Neutrophils % (manual) 12; Lymphocytes % (manual) 19 (10.0-50.0); Monocytes % (manual) 7 (0-12)
[2024-09-09 05:04] LABS: Platelet Estimate Adequate
--- NOTE | 2024-09-09 05:21 | DVH ---
CHEST RADIOGRAPH Indication: Pneumonia Technique: Single frontal view of the chest was obtained Comparison: XY CHEST XRAY 1 VIEW on DOS: 09/08/24, XY CHEST XRAY 1 VIEW on DOS: 09/07/24, XY CHEST XR AY 1 VIEW on DOS: 09/07/24 IMPRESSION: There are low lung volumes. The heart appears prominent size with small bilateral pleural effusions and moderate pulmonary vascular congestion. Support lines and tubes appear unchanged in satisfactory position.
[2024-09-09 06:55] LABS: Base Excess -1.3 mmol/L (-2.0-3.0)
--- NOTE | 2024-09-09 11:34 | DVHPN2 ---
Progress Note - Dictate Date Seen: Sep 09, 2024 Has the PT tested + for MRSA If YES, has PT been informed?: Yes Medical Necessity Reason Pt with a Central, PICC or Fol: Yes The following are medically ne: Betancourt Catheter Reason for betancourt catheter: Strict I&O Subjective Patient was seen and evaluated. She is sedated and intubated on mechanical ventilation. Respiratory culture is growing normal Oropharyngeal Layla White count trending up, currently at 20.5, off pressors Potassium is at 4.3 Creatinine is elevated at 4.30. 09/09 chest x-ray : There are low lung volumes. The heart appears prominent size with small bilateral pleural effusions and moderate pulmonary vascular congestion. Support lines and tubes appear unchanged in satisfactory position. 09/04 : gall bladder US reviewed Chest US showed no evidence for right or left pleural effusion on the provided images. vital signs Vital Sign Date Time Temp Pulse Resp B/P (MAP) Pulse Ox O2 Delivery O2 Flow Rate FiO2 09/09/24 10:20 68 22 105/52 (69) 98 50 09/09/24 10:00 Mechanical Ventilator+ 09/09/24 06:00 98.2 208.8 Total Intake and Output 09/08/24 09/08/24 09/09/24 15:00 23:00 07:00 Intake Total 589.956 ml 487.570 ml 483.704 ml Output Total 2250 ml 250 ml Balance 589.956 ml -1762.430 ml 233.704 ml medications Current Medications Medications Dose Ordered Sig/Acacia Route Start Time Stop Time Status Last Admin Dose Admin Fentanyl Citrate 250 ml @ 2.5 mls/hr Q24H IV 09/02/24 15:45 09/08/24 19:34 15 MLS/HR Propofol 100 ml @ 3.54 mls/hr Q24H IV 09/02/24 15:45 09/09/24 06:45 28.32 MLS/HR Vancomycin HCl 0 ml @ 0 mls/hr UD IV 09/02/24 18:30 Albuterol 2.5 mg Q4HWA PRN NEB 09/02/24 18:30 09/09/24 06:05 2.5 MG Ipratropium [place] 0.5 mg Q4HWA PRN NEB 09/02/24 18:30 09/09/24 06:05 0.5 MG Acetaminophen 650 mg Q4HP PRN GT 09/03/24 10:00 09/03/24 10:21 650 MG Norepinephrine Bitartrate 32 mg/ Sodium Chloride 250 ml @ 0.938 mls/ hr Q24H IV 09/03/24 12:30 09/07/24 15:26 1.875 MLS/HR Vasopressin 20 units/Sodium Chloride 100 ml @ 9 mls/hr Q11H7M IV 09/03/24 15:30 Pantoprazole Sodium 40 mg DAILY IV 09/04/24 10:00 09/09/24 11:04 40 MG Docusate Sodium 200 mg BID NG 09/06/24 22:00 09/09/24 11:03 200 MG Sennosides 17.2 mg HS PO 09/06/24 22:00 09/08/24 20:21 17.2 MG Hydrocortisone Sodium Succinate 100 mg Q12HR IV 09/06/24 22:00 09/09/24 11:03 100 MG Dopamine HCl/ Dextrose 250 ml @ 8.925 mls/ hr Q24H IV 09/06/24 15:45 09/08/24 21:12 8.925 MLS/HR Ceftriaxone Sodium/Dextrose 50 ml @ 50 mls/hr DAILY IV 09/07/24 10:00 09/09/24 11:04 50 MLS/HR Acetylcysteine 200 mg Q8HR NEB 09/07/24 14:00 09/09/24 06:06 200 MG Atorvastatin Calcium 40 mg HS PO 09/07/24 22:00 09/08/24 20:18 40 MG Enteral Nutritional Formula 1,000 ml 40ML/HR GT 09/07/24 16:30 09/07/24 17:20 1,000 ML Enoxaparin Sodium 30 mg DAILY SC 09/08/24 10:00 09/09/24 11:03 30 MG Lactulose 30 ml Q8HR PO 09/08/24 09:45 09/09/24 05:43 30 ML objective General intubated and sedated HEENT: Atraumatic,intubated Neck: No swelling Lungs: Equal air entry and clear to auscultation Cardiovascular: S1 S2 heard no murmur Abdomen: Soft nontender, no organomegaly, nondistended Neuro: sedated, unable to assess Psych: unable to assess laboratory and microbiology Laboratory Tests 09/09/24 03:10 Test 09/09/24 03:10 Range/Units Serum Glucose 117 H 74-106 mg/dL Assessment/Plan Patient is a 63-year-old female presented to the hospital with: Staphylococcus aureus pneumonia ( MRSA) Streptococcus Pneumoniae pneumonia Septic shock resolving bacteremia : coag neg staphylococccus Acute Respiratory Failure [requiring mechanical ventilation] severe hypoxia Metabolic acidosis FEDE Morbidly obese BMI = 40 PE history Recommendations: Continue IV Vancomycin and on IV Ceftriaxone WBC trending down; cont to monitor Pulmonary on board for vent management Blood culture:co ag neg staph, i think its contaminated. Recent on 09/07 showed no growth Sputum culture: Positive for Staphylococcus aureus. nephrology is on board s.p HD Vaginal culture: Positive MRSA full code prognosis very poor crit time 35 mins spent during the encounter. Thank you for consult and for giving an opportunity to take care of this patient. Dietary Evaluation Review Comments: 1. Consider EN/TPN if NPO >7days 2. Continue plan of care Expected Outcomes/Goals: 1. Pt will meet >75% of estimated needs within 2-3 days Plan discussed with: ANGELLA Peng MD Sep 09, 2024 11:34
[2024-09-09] MEDS: VANCOMYCIN 500mg/100mL 100 ML IV ONE (11:37)
--- NOTE | 2024-09-09 14:11 | DVHPN2 ---
Progress Note Date Seen: Sep 09, 2024 Has the PT tested + for MRSA If YES, has PT been informed?: Yes Medical Necessity Reason Pt with a Central, PICC or Fol: Yes The following are medically ne: Betancourt Catheter Reason for betancourt catheter: Strict I&O Subjective Patient reports: Other Review of Systems: Deferred (intubated) Objective vital signs Vital Sign Date Time Temp Pulse Resp B/P (MAP) Pulse Ox O2 Delivery O2 Flow Rate FiO2 09/09/24 13:15 98.6 71 22 113/52 (72) 87 209.5 09/09/24 12:00 Mechanical Ventilator+ 40 40 Total Intake and Output 09/08/24 09/08/24 09/09/24 15:00 23:00 07:00 Intake Total 589.956 ml 487.570 ml 483.704 ml Output Total 2250 ml 250 ml Balance 589.956 ml -1762.430 ml 233.704 ml medications Current Medications Medications Dose Ordered Sig/Acacia Route Start Time Stop Time Status Last Admin Dose Admin Fentanyl Citrate 250 ml @ 2.5 mls/hr Q24H IV 09/02/24 15:45 09/09/24 12:14 15 MLS/HR Propofol 100 ml @ 3.54 mls/hr Q24H IV 09/02/24 15:45 09/09/24 06:45 28.32 MLS/HR Vancomycin HCl 0 ml @ 0 mls/hr UD IV 09/02/24 18:30 Albuterol 2.5 mg Q4HWA PRN NEB 09/02/24 18:30 09/09/24 13:04 2.5 MG Ipratropium [place] 0.5 mg Q4HWA PRN NEB 09/02/24 18:30 09/09/24 13:03 0.5 MG Acetaminophen 650 mg Q4HP PRN GT 09/03/24 10:00 09/03/24 10:21 650 MG Norepinephrine Bitartrate 32 mg/ Sodium Chloride 250 ml @ 0.938 mls/ hr Q24H IV 09/03/24 12:30 09/07/24 15:26 1.875 MLS/HR Vasopressin 20 units/Sodium Chloride 100 ml @ 9 mls/hr Q11H7M IV 09/03/24 15:30 Pantoprazole Sodium 40 mg DAILY IV 09/04/24 10:00 09/09/24 11:04 40 MG Docusate Sodium 200 mg BID NG 09/06/24 22:00 09/09/24 11:03 200 MG Sennosides 17.2 mg HS PO 09/06/24 22:00 09/08/24 20:21 17.2 MG Hydrocortisone Sodium Succinate 100 mg Q12HR IV 09/06/24 22:00 09/09/24 11:03 100 MG Dopamine HCl/ Dextrose 250 ml @ 8.925 mls/ hr Q24H IV 09/06/24 15:45 09/08/24 21:12 8.925 MLS/HR Ceftriaxone Sodium/Dextrose 50 ml @ 50 mls/hr DAILY IV 09/07/24 10:00 09/09/24 11:04 50 MLS/HR Acetylcysteine 200 mg Q8HR NEB 09/07/24 14:00 09/09/24 13:04 200 MG Atorvastatin Calcium 40 mg HS PO 09/07/24 22:00 09/08/24 20:18 40 MG Enteral Nutritional Formula 1,000 ml 40ML/HR GT 09/07/24 16:30 09/07/24 17:20 1,000 ML Enoxaparin Sodium 30 mg DAILY SC 09/08/24 10:00 09/09/24 11:03 30 MG Lactulose 30 ml Q8HR PO 09/08/24 09:45 09/09/24 05:43 30 ML Examination: GENERAL:Abnormal, LUNGS:Abnormal, MSK:Abnormal, SKIN:Abnormal, NEURO:Abnormal laboratory and microbiology Laboratory Tests 09/09/24 03:10 Test 09/09/24 03:10 Range/Units Serum Glucose 117 H 74-106 mg/dL Microbiology Date/Time Source Procedure Growth Status 09/08/24 14:33 Bronchial Washings Gram Stain Pending Resulted 09/08/24 14:33 Bronchial Washings Respiratory Culture - Preliminary Resulted 09/07/24 09:28 Blood Blood Culture - Preliminary NO GROWTH AFTER 48 HOURS OF INCUBATION. Resulted 09/06/24 13:00 Vaginal Vaginal Culture - Preliminary Resulted 09/04/24 20:40 Nose MRSA Screen - Final Complete 09/02/24 16:00 Urine - [place] Urine Culture - Final Complete Problem List/Assessment/Plan Problem List/Assessment/Plan Acute kidney injury superimposed Chronic Kidney Disease secondary to multifactorial, FeNa < 1%, oliguric requiring initiation of hemodialysis Acute respiratory failure, patient intubated on ventilator CKD stage IIIA? Septic shock with multiorgan involvement history of PE Hyperkalemia Vancomycin toxicity recs repeat HD today for solute and volume removal Plan discussed with: Other My Orders My Orders Orders - NAILA IBARRA MD Procedure Category Date Status Time Hemodialysis Orders ORDERS 09/09/24 Transmitted 09:40 Dietary Evaluation Review Comments: 1. Consider EN/TPN if NPO >7days 2. Continue plan of care Expected Outcomes/Goals: 1. Pt will meet >75% of estimated needs within 2-3 days NAILA IBARRA MD Sep 09, 2024 14:11
[2024-09-09] MEDS ORDERED: PROPOFOL 10 MG/ML 20 ML IV ONE (16:30)
--- NOTE | 2024-09-09 16:37 | DVHPNRES ---
Progress Note Date Seen: Sep 09, 2024 Resident Creating Document: DAVID RIDDLE YENNI Has the PT tested + for MRSA If YES, has PT been informed?: Yes Medical Necessity Reason Pt with a Central, PICC or Fol: Yes The following are medically ne: Betancourt Catheter Reason for betancourt catheter: Strict I&O Subjective Review of Systems Patient seen and examined at the bedside. Patient is sedated and on mechanical ventilation. Review of system could not obtain. Patient reports: No new complaints Objective vital signs Vital Sign Date Time Temp Pulse Resp B/P (MAP) Pulse Ox O2 Delivery O2 Flow Rate FiO2 09/09/24 16:07 65 22 111/57 (75) 95 50 09/09/24 14:00 Mechanical Ventilator+ 09/09/24 13:15 98.6 209.5 Total Intake and Output 09/08/24 09/08/24 09/09/24 15:00 23:00 07:00 Intake Total 589.956 ml 487.570 ml 483.704 ml Output Total 2250 ml 250 ml Balance 589.956 ml -1762.430 ml 233.704 ml medications Current Medications Medications Dose Ordered Sig/Acacia Route Start Time Stop Time Status Last Admin Dose Admin Fentanyl Citrate 250 ml @ 2.5 mls/hr Q24H IV 09/02/24 15:45 09/09/24 12:14 15 MLS/HR Vancomycin HCl 0 ml @ 0 mls/hr UD IV 09/02/24 18:30 Albuterol 2.5 mg Q4HWA PRN NEB 09/02/24 18:30 09/09/24 13:04 2.5 MG Ipratropium [place] 0.5 mg Q4HWA PRN NEB 09/02/24 18:30 09/09/24 13:03 0.5 MG Acetaminophen 650 mg Q4HP PRN GT 09/03/24 10:00 09/03/24 10:21 650 MG Norepinephrine Bitartrate 32 mg/ Sodium Chloride 250 ml @ 0.938 mls/ hr Q24H IV 09/03/24 12:30 09/07/24 15:26 1.875 MLS/HR Vasopressin 20 units/Sodium Chloride 100 ml @ 9 mls/hr Q11H7M IV 09/03/24 15:30 Pantoprazole Sodium 40 mg DAILY IV 09/04/24 10:00 09/09/24 11:04 40 MG Docusate Sodium 200 mg BID NG 09/06/24 22:00 09/09/24 11:03 200 MG Sennosides 17.2 mg HS PO 09/06/24 22:00 09/08/24 20:21 17.2 MG Hydrocortisone Sodium Succinate 100 mg Q12HR IV 09/06/24 22:00 09/09/24 11:03 100 MG Dopamine HCl/ Dextrose 250 ml @ 8.925 mls/ hr Q24H IV 09/06/24 15:45 09/08/24 21:12 8.925 MLS/HR Ceftriaxone Sodium/Dextrose 50 ml @ 50 mls/hr DAILY IV 09/07/24 10:00 09/09/24 11:04 50 MLS/HR Acetylcysteine 200 mg Q8HR NEB 09/07/24 14:00 09/09/24 13:04 200 MG Atorvastatin Calcium 40 mg HS PO 09/07/24 22:00 09/08/24 20:18 40 MG Enteral Nutritional Formula 1,000 ml 40ML/HR GT 09/07/24 16:30 09/07/24 17:20 1,000 ML Enoxaparin Sodium 30 mg DAILY SC 09/08/24 10:00 09/09/24 11:03 30 MG Lactulose 30 ml Q8HR PO 09/08/24 09:45 09/09/24 16:13 30 ML Examination General: RASS -5, afebrile, mucosae are moist Cardiovascular: Normal S1 and S2. No murmurs, gallops or rubs Respiratory: Mechanically assisted ventilation, equal bilateral airway entree. Clear lung sounds on auscultation Abdomen: Soft, nontender, no organomegaly, bowel sounds not audible MSK/skin: Mobilization of limbs cannot be evaluated. Skin is dry and warm. Neurological: Orientation cannot be assessed. No apparent motor no sensitive deficits. Pupils are isocoric and reactive laboratory and microbiology Laboratory Tests 09/09/24 03:10 Test 09/09/24 03:10 Range/Units Serum Glucose 117 H 74-106 mg/dL Microbiology Date/Time Source Procedure Growth Status 09/08/24 14:33 Bronchial Washings Gram Stain Pending Resulted 09/08/24 14:33 Bronchial Washings Respiratory Culture - Preliminary Resulted 09/07/24 09:28 Blood Blood Culture - Preliminary NO GROWTH AFTER 48 HOURS OF INCUBATION. Resulted 09/06/24 13:00 Vaginal Vaginal Culture - Preliminary Resulted 09/04/24 20:40 Nose MRSA Screen - Final Complete 09/02/24 16:00 Urine - [place] Urine Culture - Final Complete Labs and/or images reviewed: Labs reviewed by me, Image(s) reviewed by me Problem List/Assessment/Plan Problem List/Assessment/Plan NEURO: Acute metabolic encephalopathy likely due to septic shock Patient is sedated and on mechanical ventilation with RASS score -4 (opens eyes to painful stimuli) CARDIOVASCULAR: NSTEMI type 2 likely due to septic shock Cardiology on the board, recommended conservative management Echocardiogram shows mild LVH with mild LV diastolic dysfunction with ejection fraction of 65 PULMONARY: Patient is sedated and on mechanical ventilation with pressure control mode with PEEP 8, respiratory rate 22, FiO2 60% Acute Hypoxic respiratory failure, likely due to pneumonia Septic shock likely due to pneumonia Pneumonia likely due to Gram-positive Gram-negative Bronchoscopy repeated today today, showed mucus secretion on the left main bronchus, bronchial lavage performed and sample was sent for the sputum culture/sensitivity, Gram stain and cytology, secretion was less than compared to yesterday bronchoscopy find Blood culture from 09/02/2024 shows staph hominis sensitive to vancomycin Sputum culture from 09/02/2024 shows MRSA, Streptococcus pneumoniae vancomycin Continue vancomycin and ceftriaxone Hydrocortisone 100 mg b.i.d. Continue N-acetylcysteine MRSA nares screening negative Influenza and COVID-19 screening negative Breathing treatment q.4 hours as needed GI: Abdominal ventral hernias, abdominal CT scan shows multiple ventral wall hernias containing fat and bowel with mild dilatation of proximal jejunum loops with jejunal loops course into the abdominal hernia Possible bowel obstruction, surgery consulted, recommended conservative management, suggested that small bowel series could not perform at the moment due to respiratory status of the patient Transaminitis, likely ischemic secondary to septic shock Bowel regimen: Lactulose 30 mL t.i.d., docusate and sennosides GI ppx: Protonix RENAL: Hyperkalemia, improved Hyponatremia, improved FEDE on CKD(baseline record not available), likely hemodynamically mediated Nephrology on the board, performed hemodialysis and taken out 2 L of fluids Possible rhabdomyolysis, likely due to immobilization Creatinine kinase is raised at 8215 Monitoring ENDOCRINE: Hypertriglyceridemia, TG 623 Atorvastatin 40 mg ID Sputum cultures from 09/02/2024 shows MRSA, Streptococcus pneumoniae Blood culture from 09/02/2024 shows Staph hominis Results from bronchial washing, from 09/07/2024 shows no growth after 24 hours ID on the board, suggested that the culture results are probably due to contamination and recommended to repeat the culture Repeat blood culture Possible PID Patient has purulent vaginal discharge Vaginal bacterial culture, shows coagulase-negative Staphylococcus with few growth of possible Enterococcus species LINES/DRAINS/ACCESS: ETT, intubated on 09/02/2024 IV access Hemodialysis catheter on the right subclavian vein, placed on 09/05/2024 Right internal jugular when CVC, placed on 09/03/2024 Left upper limb peripheral IV line, placed on 09/02/2024 Levophed 10 Dopamine 2 Diprivan 30 Fentanyl 175 DVT ppx: Lovenox DIET: NPO CODE STATUS: Full code Patient's status was updated with the patient's daughter on the phone. Critical time spent more than 35 minutes, including patient care, chart review and updating the family. excluding any procedures. Case discussed with Dr. Beck Plan discussed with: Patient, Daughter, Other (RN) My Orders My Orders Orders - DAVID RIDDLE RESDIRAYMOND Procedure Category Date Status Time Propofol (Diprivan) PHA 09/09/24 Transmitted 16:30 Dietary Evaluation Review Comments: 1. Consider EN/TPN if NPO >7days 2. Continue plan of care Expected Outcomes/Goals: 1. Pt will meet >75% of estimated needs within 2-3 days Date of Service: Sep 09, 2024 Billing Provider: IVAN BECK MD Common Visit Codes: [id number] CARE 30-74 MIN DAVID RIDDLE RESDIENT Sep 09, 2024 16:37 IVAN BECK MD Sep 10, 2024 13:15
[2024-09-09] MEDS: PROPOFOL 100 ML IV SCH (17:11)
[2024-09-09] MEDS: METOCLOPRAMIDE HCL 5MG/ml INJ 2ml VIAL IV ONE (18:45)
[2024-09-09 19:41] LABS: Base Excess 1.5 mmol/L (-2.0-3.0)
--- NOTE | 2024-09-09 20:49 | DVHPN2 ---
Progress Note - Dictate Date Seen: Sep 09, 2024 Has the PT tested + for MRSA If YES, has PT been informed?: Yes Medical Necessity Reason Pt with a Central, PICC or Fol: Yes The following are medically ne: Betancourt Catheter Reason for betancourt catheter: Strict I&O Subjective Patient was seen and evaluated in follow up in the ICU. Patient is intubated and sedated on ventilator. FiO2 decreased to 50%. Patient is not tolerating turning/repositioning due to desaturating. WBC 20.5, BUN 77, BRUSH MAKER MACHINE 4.30, AST 54, ALT 55. Chest x-ray shows small bilateral pleural effusions and moderate pulmonary vascular congestion. vital signs Vital Sign Date Time Temp Pulse Resp B/P (MAP) Pulse Ox O2 Delivery O2 Flow Rate FiO2 09/09/24 10:20 68 22 105/52 (69) 98 50 09/09/24 10:00 Mechanical Ventilator+ 09/09/24 06:00 98.2 208.8 Total Intake and Output 09/08/24 09/08/24 09/09/24 15:00 23:00 07:00 Intake Total 589.956 ml 487.570 ml 483.704 ml Output Total 2250 ml 250 ml Balance 589.956 ml -1762.430 ml 233.704 ml medications Current Medications Medications Dose Ordered Sig/Acacia Route Start Time Stop Time Status Last Admin Dose Admin Fentanyl Citrate 250 ml @ 2.5 mls/hr Q24H IV 09/02/24 15:45 09/08/24 19:34 15 MLS/HR Propofol 100 ml @ 3.54 mls/hr Q24H IV 09/02/24 15:45 09/09/24 06:45 28.32 MLS/HR Vancomycin HCl 0 ml @ 0 mls/hr UD IV 09/02/24 18:30 Albuterol 2.5 mg Q4HWA PRN NEB 09/02/24 18:30 09/09/24 06:05 2.5 MG Ipratropium [place] 0.5 mg Q4HWA PRN NEB 09/02/24 18:30 09/09/24 06:05 0.5 MG Acetaminophen 650 mg Q4HP PRN GT 09/03/24 10:00 09/03/24 10:21 650 MG Norepinephrine Bitartrate 32 mg/ Sodium Chloride 250 ml @ 0.938 mls/ hr Q24H IV 09/03/24 12:30 09/07/24 15:26 1.875 MLS/HR Vasopressin 20 units/Sodium Chloride 100 ml @ 9 mls/hr Q11H7M IV 09/03/24 15:30 Pantoprazole Sodium 40 mg DAILY IV 09/04/24 10:00 09/09/24 11:04 40 MG Docusate Sodium 200 mg BID NG 09/06/24 22:00 09/09/24 11:03 200 MG Sennosides 17.2 mg HS PO 09/06/24 22:00 09/08/24 20:21 17.2 MG Hydrocortisone Sodium Succinate 100 mg Q12HR IV 09/06/24 22:00 09/09/24 11:03 100 MG Dopamine HCl/ Dextrose 250 ml @ 8.925 mls/ hr Q24H IV 09/06/24 15:45 09/08/24 21:12 8.925 MLS/HR Ceftriaxone Sodium/Dextrose 50 ml @ 50 mls/hr DAILY IV 09/07/24 10:00 09/09/24 11:04 50 MLS/HR Acetylcysteine 200 mg Q8HR NEB 09/07/24 14:00 09/09/24 06:06 200 MG Atorvastatin Calcium 40 mg HS PO 09/07/24 22:00 09/08/24 20:18 40 MG Enteral Nutritional Formula 1,000 ml 40ML/HR GT 09/07/24 16:30 09/07/24 17:20 1,000 ML Enoxaparin Sodium 30 mg DAILY SC 09/08/24 10:00 09/09/24 11:03 30 MG Lactulose 30 ml Q8HR PO 09/08/24 09:45 09/09/24 05:43 30 ML objective GENERAL: Intubated on ventilator. Morbidly obese LUNGS: Decreased breath sounds. CARDIOVASCULAR: Heart sounds are good. ABDOMEN: Soft. Morbid pannus limited physical palpation. SKIN: Multiple scars to abdomen. Two open areas on abdomen with oozing wounds. laboratory and microbiology Laboratory Tests 09/09/24 03:10 Test 09/09/24 03:10 Range/Units Serum Glucose 117 H 74-106 mg/dL Problem List Septic shock. Acute on chronic respiratory failure. NSTEMI type II secondary to above. Rule out structural heart disease. Prolonged QT interval. Morbid obesity, Class 3. Assessment/Plan Continued all current supportive medical care. IV antibiotics as ordered. Vasopressors for hemodynamic support. GI prophylactics. Additional plan as per the hospital course. Critical care time of 45 minutes provided to include time spent evaluation of patient at bedside, when appropriate patient/family education for diagnosis, treatment plan, review of pertinent medical information and discussion of care with specialty providers and PCP. Mechanical ventilator parameters, treatment and adjustments have personally been reviewed by me and treatment plan by securities supervisor has also been reviewed. Dietary Evaluation Review Comments: 1. Consider EN/TPN if NPO >7days 2. Continue plan of care Expected Outcomes/Goals: 1. Pt will meet >75% of estimated needs within 2-3 days Plan discussed with: Other RELL STEWART MD Sep 09, 2024 11:28
[2024-09-10] VITALS (127 sets, daily range): BP systolic 87–154; BP diastolic 48–79; PULSE 56–77; RESP 12–27; TEMP 97.2–99.5; O2SAT 91–100
[2024-09-10 04:02] LABS: Hematocrit 39.2 % (36.0-46.0); Hemoglobin 13.5 g/dL (12.2-16.2); Mean Corpuscular Hemoglobin 30.1 pg (28.0-32.0); Mean Corpuscular Hgb Conc. 34.3 g/dL (32.0-36.0); Mean Corpuscular Volume 87.6 fL (80.0-100.0); Platelet Count (auto) 241 10^3/uL (140-450); Red Blood Cells 4.48 10^6/uL (4.0-5.20); Red Cell Distribution Width 13.5 % (11.8-14.3); White Blood Cell 24.6 10^3/uL (4.4-10.8)
[2024-09-10 04:05] LABS: Basophils % (manual) 0 (0.0-2.0); Blast Cells 0; Metamyelocytes % 0; Myelocytes % 0; Promyelocytes % 0; Reactive Lymphocytes 0
[2024-09-10 04:17] LABS: Alkaline Phosphatase 100 U/L (46-116); Anion Gap 20 (5-15); BUN/Creatinine Ratio 18.8 (10.0-20.0); Bilirubin, Total 0.4 mg/dL (0.2-1.0); Calcium 9.4 mg/dL (8.7-10.4); Chloride 99 mmol/L (98-107); Potassium 3.7 mmol/L (3.5-5.1); Sodium 138 mmol/L (136-145); Total Protein 6.2 g/dL (5.7-8.2)
[2024-09-10 04:30] LABS: Alanine Aminotransferase 44 U/L (7-40); Aspartate Aminotransferase 48 U/L (13-40); Blood Urea Nitrogen 63 mg/dL (9-23); Carbon Dioxide 19 mmol/L (20-31); Glucose 113 mg/dL (74-106)
[2024-09-10 04:56] LABS: Band Neutrophils % (manual) 9; Eosinophils % (manual) 1 (0-7); Lymphocytes % (manual) 16 (10.0-50.0); Monocytes % (manual) 7 (0-12)
[2024-09-10 04:57] LABS: Platelet Estimate Adequate
--- NOTE | 2024-09-10 05:43 | DVH ---
CHEST RADIOGRAPH Indication: Pneumonia Technique: Single frontal view of the chest was obtained Comparison: XY CHEST XRAY 1 VIEW on DOS: 09/09/24 FINDINGS: Lines and Tubes: The endotracheal tube terminates 3.3 cm above the teetee. Right central venous cath eter terminates in the superior vena cava. The enteric tube courses below the left hemidiaphragm and the tip extends outside the field of view. Lungs: Stable pulmonary congestion. Bibasilar atelectasis. Pleura: Bilateral pleural effusions. No pneumothorax. Cardiomediastinal contours: Stable cardiovascular silhouette. Bones: No acute osseous abnormality. IMPRESSION: 1. Pulmonary congestion and bilateral pleural effusions similar to prior study. Bibasilar atelectasis .
[2024-09-10 08:23] LABS: Base Excess -3.7 mmol/L (-2.0-3.0)
--- NOTE | 2024-09-10 09:27 | DVHPN2 ---
Progress Note - Dictate Date Seen: Sep 10, 2024 Has the PT tested + for MRSA If YES, has PT been informed?: Yes Medical Necessity Reason Pt with a Central, PICC or Fol: Yes The following are medically ne: Betancourt Catheter Reason for betancourt catheter: Strict I&O Subjective Patient was seen and evaluated. She is sedated and intubated on mechanical ventilation. FiO2 decreased to 50%. Patient is not tolerating turning/repositioning due to desaturating. Respiratory culture is growing normal Oropharyngeal Layla White count trending up, currently at 24.6, off pressors Potassium is at 3.7 Creatinine is elevated at 3.35. 09/10 chest x-ray : Pulmonary congestion and bilateral pleural effusions similar to prior study. Bibasilar atelectasis. 09/04 : gall bladder US reviewed Chest US showed no evidence for right or left pleural effusion on the provided images. vital signs Vital Sign Date Time Temp Pulse Resp B/P (MAP) Pulse Ox O2 Delivery O2 Flow Rate FiO2 09/10/24 08:27 151/73 09/10/24 07:58 61 22 96 60 09/10/24 07:15 98.1 208.6 09/10/24 06:00 Mechanical Ventilator+ Total Intake and Output 09/09/24 09/09/24 09/10/24 15:00 23:00 07:00 Intake Total 575.464 ml 421.712 ml 657.080 ml Output Total 350 ml 3300 ml Balance 575.464 ml 71.712 ml -2642.920 ml medications Current Medications Medications Dose Ordered Sig/Acacia Route Start Time Stop Time Status Last Admin Dose Admin Fentanyl Citrate 250 ml @ 2.5 mls/hr Q24H IV 09/02/24 15:45 09/10/24 02:47 15 MLS/HR Vancomycin HCl 0 ml @ 0 mls/hr UD IV 09/02/24 18:30 Albuterol 2.5 mg Q4HWA PRN NEB 09/02/24 18:30 09/10/24 06:04 2.5 MG Ipratropium [place] 0.5 mg Q4HWA PRN NEB 09/02/24 18:30 09/10/24 06:04 0.5 MG Acetaminophen 650 mg Q4HP PRN GT 09/03/24 10:00 09/03/24 10:21 650 MG Norepinephrine Bitartrate 32 mg/ Sodium Chloride 250 ml @ 0.938 mls/ hr Q24H IV 09/03/24 12:30 09/07/24 15:26 1.875 MLS/HR Vasopressin 20 units/Sodium Chloride 100 ml @ 9 mls/hr Q11H7M IV 09/03/24 15:30 Pantoprazole Sodium 40 mg DAILY IV 09/04/24 10:00 09/09/24 11:04 40 MG Docusate Sodium 200 mg BID NG 09/06/24 22:00 09/09/24 21:25 200 MG Sennosides 17.2 mg HS PO 09/06/24 22:00 09/09/24 21:26 17.2 MG Hydrocortisone Sodium Succinate 100 mg Q12HR IV 09/06/24 22:00 09/09/24 21:26 100 MG Dopamine HCl/ Dextrose 250 ml @ 8.925 mls/ hr Q24H IV 09/06/24 15:45 09/10/24 00:19 8.925 MLS/HR Ceftriaxone Sodium/Dextrose 50 ml @ 50 mls/hr DAILY IV 09/07/24 10:00 09/09/24 11:04 50 MLS/HR Acetylcysteine 200 mg Q8HR NEB 09/07/24 14:00 09/10/24 06:04 200 MG Atorvastatin Calcium 40 mg HS PO 09/07/24 22:00 09/09/24 21:25 40 MG Enteral Nutritional Formula 1,000 ml 40ML/HR GT 09/07/24 16:30 09/07/24 17:20 1,000 ML Enoxaparin Sodium 30 mg DAILY SC 09/08/24 10:00 09/09/24 11:03 30 MG Lactulose 30 ml Q8HR PO 09/08/24 09:45 09/10/24 05:34 30 ML Propofol 100 ml @ 3.54 mls/hr Q24H IV 09/09/24 16:30 09/10/24 08:27 35.4 MLS/HR Metoclopramide HCl 10 mg DAILY IV 09/10/24 10:00 objective General intubated and sedated HEENT: Atraumatic,intubated Neck: No swelling Lungs: Equal air entry and clear to auscultation Cardiovascular: S1 S2 heard no murmur Abdomen: Soft nontender, no organomegaly, nondistended Neuro: sedated, unable to assess Psych: unable to assess laboratory and microbiology Laboratory Tests 09/10/24 03:16 Test 09/10/24 03:16 Range/Units Serum Glucose 113 H 74-106 mg/dL Assessment/Plan Patient is a 63-year-old female presented to the hospital with: Staphylococcus aureus pneumonia ( MRSA) Streptococcus Pneumoniae pneumonia Septic shock resolving bacteremia : coag neg staphylococccus Acute Respiratory Failure [requiring mechanical ventilation] severe hypoxia Metabolic acidosis FEDE Morbidly obese BMI = 40 PE history Recommendations: Continue IV Vancomycin and Continue IV Cefepime WBC trending down; cont to monitor repeat 2 sets of blood cx, Pulmonary on board for vent management Blood culture:co ag neg staph, i think its contaminated. Recent on 09/07 showed no growth Sputum culture: Positive for Staphylococcus aureus. nephrology is on board s.p HD Vaginal culture: Positive full code prognosis very poor crit time 35 mins spent during the encounter. Thank you for consult and for giving an opportunity to take care of this patient. Dietary Evaluation Review Comments: 1. Consider EN/TPN if NPO >7days 2. Continue plan of care Expected Outcomes/Goals: 1. Pt will meet >75% of estimated needs within 2-3 days ANGELLA REYES MD Sep 10, 2024 09:27
[2024-09-10] MEDS: METOCLOPRAMIDE HCL 5MG/ml INJ 2ml VIAL IV SCH ×3 (10:12→14:00)
[2024-09-10] MEDS: HYDROCORTISONE SOD SUCC 100 MG/2ML INJ VIAL IV SCH (13:15)
--- NOTE | 2024-09-10 13:27 | DVHNC2 ---
Other Procedure Procedure Bronchoscopy Operative Note Procedure Performed: 1. Flexible Bronchoscopy 2. Right lower lobe bronchial washings 3. Left upper lobe bronchial washings Anesthesia/Medication: Patient intubated and sedated Preoperative Diagnosis: Pneumonia Postoperative Diagnosis: Same Estimated Blood Loss: Less than 10 ml Indications: Findings: No significant endobronchial lesions or abnormalities were seen. Description of the Procedure: Bronchoscope was introduced through the ET tube the bronchoscope was then inserted into the subglottic area, followed by the trachea, bilateral mainstem bronchi, and to the level of the subsegmental bronchi. There was no evidence of intrinsic or extrinsic compression. I first did right lower lobe bronchial washings. I then did left upper lobe bronchial washings. At this point, there was no evidence of any ongoing bleeding. The bronchoscope was then withdrawn and the patient was allowed to recover. Date of Service: Sep 10, 2024 Billing Provider: IVAN BRYANT MD Common Visit Codes: PROCEDURE ONLY Procedure Codes: [id number] IVAN BRYANT MD Sep 10, 2024 13:27
[2024-09-10] MEDS: FLEET MINERAL OIL ENEMA 133 ML PR ONE (14:03)
[2024-09-10] MEDS: MIDAZOLAM DRIP 50 mg/50mL 50 ML IV SCH (15:22)
--- NOTE | 2024-09-10 16:43 | DVHPNRES ---
Progress Note Date Seen: Sep 10, 2024 Resident Creating Document: DAVID RIDDLE YENNI Has the PT tested + for MRSA If YES, has PT been informed?: Yes Medical Necessity Reason Pt with a Central, PICC or Fol: Yes The following are medically ne: Betancourt Catheter Reason for betancourt catheter: Strict I&O Subjective Review of Systems Patient seen and examined at the bedside. Patient is sedated and on mechanical ventilation. Review of system could not obtain. Patient reports: No new complaints Objective vital signs Vital Sign Date Time Temp Pulse Resp B/P (MAP) Pulse Ox O2 Delivery O2 Flow Rate FiO2 09/10/24 16:18 68 22 101/48 (65) 93 55 09/10/24 16:00 Mechanical Ventilator+ 09/10/24 13:15 97.7 207.9 Total Intake and Output 09/09/24 09/09/24 09/10/24 15:00 23:00 07:00 Intake Total 575.464 ml 421.712 ml 657.080 ml Output Total 350 ml 3300 ml Balance 575.464 ml 71.712 ml -2642.920 ml medications Current Medications Medications Dose Ordered Sig/Acacia Route Start Time Stop Time Status Last Admin Dose Admin Fentanyl Citrate 250 ml @ 2.5 mls/hr Q24H IV 09/02/24 15:45 09/10/24 15:32 25 MLS/HR Albuterol 2.5 mg Q4HWA PRN NEB 09/02/24 18:30 09/10/24 14:29 2.5 MG Ipratropium [place] 0.5 mg Q4HWA PRN NEB 09/02/24 18:30 09/10/24 14:29 0.5 MG Acetaminophen 650 mg Q4HP PRN GT 09/03/24 10:00 09/03/24 10:21 650 MG Norepinephrine Bitartrate 32 mg/ Sodium Chloride 250 ml @ 0.938 mls/ hr Q24H IV 09/03/24 12:30 09/07/24 15:26 1.875 MLS/HR Vasopressin 20 units/Sodium Chloride 100 ml @ 9 mls/hr Q11H7M IV 09/03/24 15:30 Pantoprazole Sodium 40 mg DAILY IV 09/04/24 10:00 09/10/24 10:11 40 MG Docusate Sodium 200 mg BID NG 09/06/24 22:00 09/10/24 10:13 200 MG Sennosides 17.2 mg HS PO 09/06/24 22:00 09/09/24 21:26 17.2 MG Ceftriaxone Sodium/Dextrose 50 ml @ 50 mls/hr DAILY IV 09/07/24 10:00 09/10/24 10:14 50 MLS/HR Acetylcysteine 200 mg Q8HR NEB 09/07/24 14:00 09/10/24 14:29 200 MG Atorvastatin Calcium 40 mg HS PO 09/07/24 22:00 09/09/24 21:25 40 MG Enoxaparin Sodium 30 mg DAILY SC 09/08/24 10:00 09/10/24 10:12 30 MG Lactulose 30 ml Q8HR PO 09/08/24 09:45 09/10/24 15:20 30 ML Propofol 100 ml @ 3.54 mls/hr Q24H IV 09/09/24 16:30 09/10/24 15:30 35.4 MLS/HR Hydrocortisone Sodium Succinate 100 mg DAILY IV 09/10/24 13:15 Enteral Nutritional Formula 1,000 ml 30ML/HR GT 09/10/24 13:15 Metoclopramide HCl 5 mg Q8HR IV 09/10/24 13:45 09/10/24 15:21 5 MG Midazolam HCl 50 ml @ 1 mls/hr Q24H IV 09/10/24 14:45 09/10/24 15:22 1 MLS/HR Examination General: RASS -5, afebrile, mucosae are moist Cardiovascular: Normal S1 and S2. No murmurs, gallops or rubs Respiratory: Mechanically assisted ventilation, equal bilateral airway entree. Clear lung sounds on auscultation Abdomen: Soft, nontender, no organomegaly, bowel sounds not audible MSK/skin: Mobilization of limbs cannot be evaluated. Skin is dry and warm. Neurological: Orientation cannot be assessed. No apparent motor no sensitive deficits. Pupils are isocoric and reactive laboratory and microbiology Laboratory Tests 09/10/24 03:16 Test 09/10/24 03:16 Range/Units Serum Glucose 113 H 74-106 mg/dL Microbiology Date/Time Source Procedure Growth Status 09/08/24 14:33 Bronchial Washings Gram Stain - Final Resulted 09/08/24 14:33 Bronchial Washings Respiratory Culture - Preliminary Resulted 09/07/24 09:28 Blood Blood Culture - Preliminary NO GROWTH AFTER 72 HOURS OF INCUBATION. Resulted 09/06/24 13:00 Vaginal Vaginal Culture - Preliminary Enterococcus faecalis Methicillin Resistant S.aureus Resulted 09/04/24 20:40 Nose MRSA Screen - Final Complete 09/02/24 16:00 Urine - [place] Urine Culture - Final Complete Labs and/or images reviewed: Labs reviewed by me, Image(s) reviewed by me Problem List/Assessment/Plan Problem List/Assessment/Plan NEURO: Acute metabolic encephalopathy likely due to septic shock Patient is sedated and on mechanical ventilation with RASS score -4 (opens eyes to painful stimuli) CARDIOVASCULAR: NSTEMI type 2 likely due to septic shock Cardiology on the board, recommended conservative management Echocardiogram shows mild LVH with mild LV diastolic dysfunction with ejection fraction of 65 PULMONARY: Patient is sedated and on mechanical ventilation with pressure control mode with PEEP 8, respiratory rate 22, FiO2 55% Acute Hypoxic respiratory failure, likely due to pneumonia Septic shock likely due to pneumonia Pneumonia likely due to Gram-positive Gram-negative Bronchoscopy repeated today today, showed mucus secretion on the left main bronchus, bronchial lavage performed and sample was sent for the sputum culture/sensitivity, Gram stain and cytology, secretion was less than compared to yesterday bronchoscopy find Blood culture from 09/02/2024 shows staph hominis sensitive to vancomycin Sputum culture from 09/02/2024 shows MRSA, Streptococcus pneumoniae vancomycin Continue ceftriaxone Discontinue vancomycin Hydrocortisone 100 mg daily Continue N-acetylcysteine MRSA nares screening negative Influenza and COVID-19 screening negative Breathing treatment q.4 hours as needed GI: Abdominal ventral hernias, abdominal CT scan shows multiple ventral wall hernias containing fat and bowel with mild dilatation of proximal jejunum loops with jejunal loops course into the abdominal hernia Possible bowel obstruction, surgery consulted, recommended conservative management, suggested that small bowel series could not perform at the moment due to respiratory status of the patient Transaminitis, likely ischemic secondary to septic shock Bowel regimen: Lactulose 30 mL t.i.d., docusate and sennosides Injection metoclopramide 10 mg t.i.d. Enema GI ppx: Protonix RENAL: Hyperkalemia, improved Hyponatremia, improved FEDE on CKD(baseline record not available), likely hemodynamically mediated Nephrology on the board, performed hemodialysis and taken out 2 L of fluids Possible rhabdomyolysis, likely due to immobilization Creatinine kinase is raised at 8215 Monitoring ENDOCRINE: Hypertriglyceridemia, TG 623 Atorvastatin 40 mg ID Sputum cultures from 09/02/2024 shows MRSA, Streptococcus pneumoniae Blood culture from 09/02/2024 shows Staph hominis Results from bronchial washing, from 09/07/2024 shows no growth after 24 hours ID on the board, suggested that the culture results are probably due to contamination and recommended to repeat the culture Repeat blood culture Possible PID Patient has purulent vaginal discharge Vaginal bacterial culture, shows coagulase-negative Staphylococcus with few growth of possible Enterococcus species LINES/DRAINS/ACCESS: ETT, intubated on 09/02/2024 IV access Hemodialysis catheter on the right subclavian vein, placed on 09/05/2024 Right internal jugular when CVC, placed on 09/03/2024 Left upper limb peripheral IV line, placed on 09/02/2024 Drips: Levophed 2 Diprivan 50 Fentanyl 200 DVT ppx: Lovenox DIET: DVT 20 mL/hour CODE STATUS: Full code Patient's status was updated with the patient's daughter on the phone. Critical time spent more than 40 minutes, including patient care, chart review and updating the family. excluding any procedures. The patient did not have bowel movement for a couple of days, patient is on lactulose, senna and Colace, today we added injection metoclopramide 10 mg t.i.d. and did an enema, surgery has been evaluated the patient for possible bowel obstruction and recommended that the patient do not need any procedure at the moment and due to respiratory status of the patient small bowel is series could not be performed. Patient respiratory status has been improving, we will observe the patient for the requirement of CPAP trial. Case discussed with Dr. Beck Plan discussed with: Patient, Daughter My Orders My Orders Orders - DAVID RIDDLE Procedure Category Date Status Time Chest Xray 1 View XY 09/10/24 Resulted 04:00 Abg W/ Co-Ox RT 09/10/24 Logged 04:00 Hydrocortisone PHA 09/10/24 In Process Succinate Inj 13:15 Nutritional PHA 09/10/24 In Process Supplements (Jevity 13:15 Metoclopramide PHA 09/10/24 In Process Injection (Reglan 13:45 Comprehensive LAB 09/11/24 Verified Metabolic Panel 04:00 Complete Blood Count LAB 09/11/24 Verified 04:00 Chest Xray 1 View XY 09/11/24 Logged 04:00 Abg W/ Co-Ox RT 09/11/24 Logged 04:00 Dietary Evaluation Review Comments: 1. Consider EN/TPN if NPO >7days 2. Continue plan of care Expected Outcomes/Goals: 1. Pt will meet >75% of estimated needs within 2-3 days Date of Service: Sep 10, 2024 Billing Provider: IVAN BECK MD Common Visit Codes: [id number] CARE 30-74 MIN DAVID RIDDLE RESDIENT Sep 10, 2024 16:43 IVAN BECK MD Sep 17, 2024 13:11
--- NOTE | 2024-09-10 19:35 | DVHPN2 ---
Progress Note - Dictate Date Seen: Sep 10, 2024 Has the PT tested + for MRSA If YES, has PT been informed?: Yes Medical Necessity Reason Pt with a Central, PICC or Fol: Yes The following are medically ne: Betancourt Catheter Reason for betancourt catheter: Strict I&O Subjective Patient was seen and evaluated in follow up in the ICU. Patient is intubated and sedated on ventilator. FiO2 55%. Patient is on vasopressors for hemodynamic support. 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 Chest x-ray shows pulmonary congestion and bilateral pleural effusions similar to prior study. Bibasilar atelectasis. vital signs Vital Sign Date Time Temp Pulse Resp B/P (MAP) Pulse Ox O2 Delivery O2 Flow Rate FiO2 09/10/24 12:04 71 27 112/57 (75) 98 55 09/10/24 12:00 Mechanical Ventilator+ 09/10/24 11:30 97.7 207.9 Total Intake and Output 09/09/24 09/09/24 09/10/24 14:59 22:59 06:59 Intake Total 575.464 ml 435.775 ml 639.580 ml Output Total 350 ml 3300 ml Balance 575.464 ml 85.775 ml -2660.420 ml medications Current Medications Medications Dose Ordered Sig/[place] Route Start Time Stop Time Status Last Admin Dose Admin Fentanyl Citrate 250 ml @ 2.5 mls/hr Q24H IV 09/02/24 15:45 09/10/24 02:47 15 MLS/HR Vancomycin HCl 0 ml @ 0 mls/hr UD IV 09/02/24 18:30 Albuterol 2.5 mg Q4HWA PRN NEB 09/02/24 18:30 09/10/24 06:04 2.5 MG Ipratropium [place] 0.5 mg Q4HWA PRN NEB 09/02/24 18:30 09/10/24 06:04 0.5 MG Acetaminophen 650 mg Q4HP PRN GT 09/03/24 10:00 09/03/24 10:21 650 MG Norepinephrine Bitartrate 32 mg/ Sodium Chloride 250 ml @ 0.938 mls/ hr Q24H IV 09/03/24 12:30 09/07/24 15:26 1.875 MLS/HR Vasopressin 20 units/Sodium Chloride 100 ml @ 9 mls/hr Q11H7M IV 09/03/24 15:30 Pantoprazole Sodium 40 mg DAILY IV 09/04/24 10:00 09/10/24 10:11 40 MG Docusate Sodium 200 mg BID NG 09/06/24 22:00 09/10/24 10:13 200 MG Sennosides 17.2 mg HS PO 09/06/24 22:00 09/09/24 21:26 17.2 MG Hydrocortisone Sodium Succinate 100 mg Q12HR IV 09/06/24 22:00 09/10/24 10:12 100 MG Dopamine HCl/ Dextrose 250 ml @ 8.925 mls/ hr Q24H IV 09/06/24 15:45 09/10/24 00:19 8.925 MLS/HR Ceftriaxone Sodium/Dextrose 50 ml @ 50 mls/hr DAILY IV 09/07/24 10:00 09/10/24 10:14 50 MLS/HR Acetylcysteine 200 mg Q8HR NEB 09/07/24 14:00 09/10/24 06:04 200 MG Atorvastatin Calcium 40 mg HS PO 09/07/24 22:00 09/09/24 21:25 40 MG Enteral Nutritional Formula 1,000 ml 40ML/HR GT 09/07/24 16:30 09/07/24 17:20 1,000 ML Enoxaparin Sodium 30 mg DAILY SC 09/08/24 10:00 09/10/24 10:12 30 MG Lactulose 30 ml Q8HR PO 09/08/24 09:45 09/10/24 05:34 30 ML Propofol 100 ml @ 3.54 mls/hr Q24H IV 09/09/24 16:30 09/10/24 11:03 35.4 MLS/HR Metoclopramide HCl 10 mg DAILY IV 09/10/24 10:00 09/10/24 10:12 10 MG objective GENERAL: Intubated on ventilator. Morbidly obese LUNGS: Decreased breath sounds. CARDIOVASCULAR: Heart sounds are good. ABDOMEN: Soft. Morbid pannus limited physical palpation. SKIN: Multiple scars to abdomen. Two open areas on abdomen with oozing wounds. laboratory and microbiology Laboratory Tests 09/10/24 03:16 Test 11/29/24 03:16 Range/Units Serum Glucose 113 H 74-106 mg/dL Problem List Septic shock. Acute on chronic respiratory failure. NSTEMI type II secondary to above. Rule out structural heart disease. Prolonged QT interval. Morbid obesity, Class 3. Assessment/Plan Continued all current supportive medical care. IV antibiotics as ordered. Vasopressors for hemodynamic support. GI prophylactics. Additional plan as per the hospital course. Critical care time of 45 minutes provided to include time spent evaluation of patient at bedside, when appropriate patient/family education for diagnosis, treatment plan, review of pertinent medical information and discussion of care with specialty providers and PCP. Mechanical ventilator parameters, treatment and adjustments have personally been reviewed by me and treatment plan by sales merchandise associate has also been reviewed. Dietary Evaluation Review Comments: 1. Consider EN/TPN if NPO >7days 2. Continue plan of care Expected Outcomes/Goals: 1. Pt will meet >75% of estimated needs within 2-3 days Plan discussed with: Other RELL STEWART MD Sep 10, 2024 12:17
--- NOTE | 2024-09-10 21:15 | DVHPN2 ---
Progress Note Date Seen: Sep 10, 2024 Has the PT tested + for MRSA If YES, has PT been informed?: Yes Medical Necessity Reason Pt with a Central, PICC or Fol: Yes The following are medically ne: Betancourt Catheter Reason for betancourt catheter: Strict I&O Subjective Patient reports: Other (no events) Review of Systems: Deferred Objective vital signs Vital Sign Date Time Temp Pulse Resp B/P (MAP) Pulse Ox O2 Delivery O2 Flow Rate FiO2 09/10/24 21:10 98.1 67 22 96/62 (73) 97 208.6 09/10/24 20:30 55 09/10/24 20:30 Mechanical Ventilator+ Total Intake and Output 09/09/24 09/09/24 09/10/24 15:00 23:00 07:00 Intake Total 575.464 ml 421.712 ml 657.080 ml Output Total 350 ml 3300 ml Balance 575.464 ml 71.712 ml -2642.920 ml medications Current Medications Medications Dose Ordered Sig/Acacia Route Start Time Stop Time Status Last Admin Dose Admin Fentanyl Citrate 250 ml @ 2.5 mls/hr Q24H IV 09/02/24 15:45 09/10/24 15:32 25 MLS/HR Albuterol 2.5 mg Q4HWA PRN NEB 09/02/24 18:30 09/10/24 14:29 2.5 MG Ipratropium [place] 0.5 mg Q4HWA PRN NEB 09/02/24 18:30 09/10/24 14:29 0.5 MG Acetaminophen 650 mg Q4HP PRN GT 09/03/24 10:00 09/03/24 10:21 650 MG Norepinephrine Bitartrate 32 mg/ Sodium Chloride 250 ml @ 0.938 mls/ hr Q24H IV 09/03/24 12:30 09/07/24 15:26 1.875 MLS/HR Vasopressin 20 units/Sodium Chloride 100 ml @ 9 mls/hr Q11H7M IV 09/03/24 15:30 Pantoprazole Sodium 40 mg DAILY IV 09/04/24 10:00 09/10/24 10:11 40 MG Docusate Sodium 200 mg BID NG 09/06/24 22:00 09/10/24 10:13 200 MG Sennosides 17.2 mg HS PO 09/06/24 22:00 09/09/24 21:26 17.2 MG Ceftriaxone Sodium/Dextrose 50 ml @ 50 mls/hr DAILY IV 09/07/24 10:00 09/10/24 10:14 50 MLS/HR Acetylcysteine 200 mg Q8HR NEB 09/07/24 14:00 09/10/24 14:29 200 MG Atorvastatin Calcium 40 mg HS PO 09/07/24 22:00 09/09/24 21:25 40 MG Enoxaparin Sodium 30 mg DAILY SC 09/08/24 10:00 09/10/24 10:12 30 MG Lactulose 30 ml Q8HR PO 09/08/24 09:45 09/10/24 15:20 30 ML Propofol 100 ml @ 3.54 mls/hr Q24H IV 09/09/24 16:30 09/10/24 16:50 35.4 MLS/HR Hydrocortisone Sodium Succinate 100 mg DAILY IV 09/10/24 13:15 Enteral Nutritional Formula 1,000 ml 30ML/HR GT 09/10/24 13:15 Metoclopramide HCl 5 mg Q8HR IV 09/10/24 13:45 09/10/24 15:21 5 MG Midazolam HCl 50 ml @ 1 mls/hr Q24H IV 09/10/24 14:45 09/10/24 15:22 1 MLS/HR Examination: GENERAL:Abnormal, LUNGS:Abnormal, MSK:Abnormal, NEURO:Abnormal laboratory and microbiology Laboratory Tests 09/10/24 03:16 Test 09/10/24 03:16 Range/Units Serum Glucose 113 H 74-106 mg/dL Microbiology Date/Time Source Procedure Growth Status 09/08/24 14:33 Bronchial Washings Gram Stain - Final Resulted 09/08/24 14:33 Bronchial Washings Respiratory Culture - Preliminary Resulted 09/07/24 09:28 Blood Blood Culture - Preliminary NO GROWTH AFTER 72 HOURS OF INCUBATION. Resulted 09/06/24 13:00 Vaginal Vaginal Culture - Preliminary Enterococcus faecalis Methicillin Resistant S.aureus Resulted 09/04/24 20:40 Nose MRSA Screen - Final Complete 09/02/24 16:00 Urine - [place] Urine Culture - Final Complete Problem List/Assessment/Plan Problem List/Assessment/Plan Acute kidney injury superimposed Chronic Kidney Disease secondary to hemodynamic etiology +/- tubular injury oliguric requiring initiation of hemodialysis Acute respiratory failure, patient intubated on ventilator CKD stage IIIA? Septic shock with multiorgan involvement history of PE Hyperkalemia Vancomycin toxicity recs repeat HD today for solute and volume removal next HD friday Plan discussed with: Other Dietary Evaluation Review Comments: 1. Consider EN/TPN if NPO >7days 2. Continue plan of care Expected Outcomes/Goals: 1. Pt will meet >75% of estimated needs within 2-3 days NAILA IBARRA MD Sep 10, 2024 21:15
[2024-09-11] VITALS (113 sets, daily range): BP systolic 91–130; BP diastolic 49–67; PULSE 66–78; RESP 15–26; TEMP 97.5–99.5; O2SAT 88–100
[2024-09-11 03:51] LABS: Mean Corpuscular Volume 87.9 fL (80.0-100.0)
[2024-09-11 03:54] LABS: Hematocrit 40.7 % (36.0-46.0); Hemoglobin 13.8 g/dL (12.2-16.2); Mean Corpuscular Hemoglobin 29.7 pg (28.0-32.0); Mean Corpuscular Hgb Conc. 33.8 g/dL (32.0-36.0); Platelet Count (auto) 260 10^3/uL (140-450); Red Blood Cells 4.63 10^6/uL (4.0-5.20); Red Cell Distribution Width 13.4 % (11.8-14.3)
[2024-09-11 04:08] LABS: Alkaline Phosphatase 107 U/L (46-116); Anion Gap 18 (5-15); Bilirubin, Total 0.4 mg/dL (0.2-1.0); Calcium 9.8 mg/dL (8.7-10.4); Carbon Dioxide 20 mmol/L (20-31); Glucose 96 mg/dL (74-106); Potassium 3.6 mmol/L (3.5-5.1); Sodium 136 mmol/L (136-145); Total Protein 6.4 g/dL (5.7-8.2)
[2024-09-11 04:09] LABS: Alanine Aminotransferase 42 U/L (7-40); Aspartate Aminotransferase 46 U/L (13-40); Blood Urea Nitrogen 60 mg/dL (9-23); Chloride 98 mmol/L (98-107)
[2024-09-11 04:15] LABS: White Blood Cell 31.7 10^3/uL (4.4-10.8)
[2024-09-11 04:16] LABS: Basophils % (manual) 0 (0.0-2.0); Blast Cells 0; Eosinophils % (manual) 0 (0-7); Metamyelocytes % 0; Myelocytes % 0; Promyelocytes % 0; Reactive Lymphocytes 0
[2024-09-11 05:25] LABS: Band Neutrophils % (manual) 10; Lymphocytes % (manual) 9 (10.0-50.0); Monocytes % (manual) 2 (0-12); Platelet Estimate Adequate
--- NOTE | 2024-09-11 05:58 | DVH ---
CHEST RADIOGRAPH Indication: Pneumonia Technique: Single frontal view of the chest was obtained Comparison: XY CHEST XRAY 1 VIEW on DOS: 09/10/24, XY CHEST XRAY 1 VIEW on DOS: 09/09/24, XY CHEST XR AY 1 VIEW on DOS: 09/08/24 IMPRESSION: There are low lung volumes. The heart is prominent size. Small bilateral pleural effusions, left gre ater than right with bibasilar atelectasis. No pneumothorax. Support lines and tubes appear unchang ed in position.
[2024-09-11 07:48] LABS: Base Excess -2.8 mmol/L (-2.0-3.0)
--- NOTE | 2024-09-11 10:55 | DVHPN2 ---
Progress Note - Dictate Date Seen: Sep 11, 2024 Has the PT tested + for MRSA If YES, has PT been informed?: Yes Medical Necessity Reason Pt with a Central, PICC or Fol: Yes The following are medically ne: Betancourt Catheter Reason for betancourt catheter: Strict I&O Subjective Pharmacy called due to leucocytosis, She is sedated and intubated on mechanical ventilation. FiO2 decreased to 50%. s/p bronch 09/10 White count trending up, currently at 31.7, 09/11 chest x-ray : There are low lung volumes. The heart is prominent size. Small bilateral pleural effusions, left greater than right with bibasilar atelectasis. No pneumothorax. Support lines and tubes appear unchanged in position. 09/04 : gall bladder US reviewed Chest US showed no evidence for right or left pleural effusion on the provided images. vital signs Vital Sign Date Time Temp Pulse Resp B/P (MAP) Pulse Ox O2 Delivery O2 Flow Rate FiO2 09/11/24 10:40 73 22 106/54 (71) 94 40 09/11/24 10:15 99.0 210.2 09/11/24 10:00 Mechanical Ventilator+ Total Intake and Output 09/10/24 09/10/24 09/11/24 15:00 23:00 07:00 Intake Total 503.852 ml 584.203 ml 711.766 ml Output Total 200 ml 300 ml Balance 503.852 ml 384.203 ml 411.766 ml medications Current Medications Medications Dose Ordered Sig/[place]acia Route Start Time Stop Time Status Last Admin Dose Admin Fentanyl Citrate 250 ml @ 2.5 mls/hr Q24H IV 09/02/24 15:45 09/11/24 07:58 25 MLS/HR Albuterol 2.5 mg Q4HWA PRN NEB 09/02/24 18:30 09/11/24 06:33 2.5 MG Ipratropium [place] 0.5 mg Q4HWA PRN NEB 09/02/24 18:30 09/11/24 06:33 0.5 MG Acetaminophen 650 mg Q4HP PRN GT 09/03/24 10:00 09/03/24 10:21 650 MG Norepinephrine Bitartrate 32 mg/ Sodium Chloride 250 ml @ 0.938 mls/ hr Q24H IV 09/03/24 12:30 09/11/24 03:15 2.813 MLS/HR Vasopressin 20 units/Sodium Chloride 100 ml @ 9 mls/hr Q11H7M IV 09/03/24 15:30 Pantoprazole Sodium 40 mg DAILY IV 09/04/24 10:00 09/11/24 08:57 40 MG Docusate Sodium 200 mg BID NG 09/06/24 22:00 09/11/24 08:57 200 MG Sennosides 17.2 mg HS PO 09/06/24 22:00 09/10/24 21:22 17.2 MG Ceftriaxone Sodium/Dextrose 50 ml @ 50 mls/hr DAILY IV 09/07/24 10:00 09/11/24 08:58 50 MLS/HR Acetylcysteine 200 mg Q8HR NEB 09/07/24 14:00 09/11/24 06:33 200 MG Atorvastatin Calcium 40 mg HS PO 09/07/24 22:00 09/10/24 21:22 40 MG Enoxaparin Sodium 30 mg DAILY SC 09/08/24 10:00 09/11/24 08:58 30 MG Lactulose 30 ml Q8HR PO 09/08/24 09:45 09/11/24 05:01 30 ML Propofol 100 ml @ 3.54 mls/hr Q24H IV 09/09/24 16:30 09/11/24 10:02 35.4 MLS/HR Hydrocortisone Sodium Succinate 100 mg DAILY IV 09/10/24 13:15 09/11/24 08:58 100 MG Enteral Nutritional Formula 1,000 ml 30ML/HR GT 09/10/24 13:15 Metoclopramide HCl 5 mg Q8HR IV 09/10/24 13:45 09/11/24 05:01 5 MG Midazolam HCl 50 ml @ 1 mls/hr Q24H IV 09/10/24 14:45 09/10/24 22:17 2 MLS/HR objective General intubated and sedated HEENT: Atraumatic,intubated Neck: No swelling Lungs: Equal air entry and clear to auscultation Cardiovascular: S1 S2 heard no murmur Abdomen: Soft nontender, no organomegaly, nondistended Neuro: sedated, unable to assess Psych: unable to assess laboratory and microbiology Laboratory Tests 09/11/24 03:06 Test 09/11/24 03:06 Range/Units Serum Glucose 96 74-106 mg/dL Assessment/Plan Patient is a 63-year-old female presented to the hospital with: Staphylococcus aureus pneumonia ( MRSA) Streptococcus Pneumoniae pneumonia Septic shock resolving bacteremia : coag neg staphylococccus Acute Respiratory Failure [requiring mechanical ventilation] severe hypoxia Metabolic acidosis FEDE Morbidly obese BMI = 40 PE history Recommendations: vancomycin was on hold, trough/ random level was in range > 15 hence therapeutic for MRSA pneumonia; FIp2 is trending down from earlier few days ago which was 80% to now 40% patient is started on hydrocortisone from 09/10; hence leucocytosis posisbly related to steroids. discussed with pharmacy, to restarted Vancomycin DC Ceftriaxone WBC trending up, likely reactive due to steroids ( baseline high) on pressors, if pressors requirement worsens, recommend repeat CT abdomen and pelvis with contrast, last scan was on 09/03 s/p bronch: follow new cultures from BAL Pulmonary on board for vent management Blood culture:co ag neg staph, i think its contaminated. Recent on 09/07 showed no growth Sputum culture: Positive for Staphylococcus aureus. nephrology is on board s.p HD Vaginal culture: Positive MRSA/ E feacalis full code prognosis very poor crit time 35 mins spent during the encounter. Thank you for consult and for giving an opportunity to take care of this patient. Dietary Evaluation Review Comments: 1. Consider EN/TPN if NPO >7days 2. Continue plan of care Expected Outcomes/Goals: 1. Pt will meet >75% of estimated needs within 2-3 days Plan discussed with: Other ANGELLA REYES MD Sep 11, 2024 10:55
--- NOTE | 2024-09-11 11:40 | MEDREC ---
[facility] Intervention Section I [facility] Intervention: Review courses of therapy (PER DR. REYES VIA PHONE, KEEP CEFTRIAXONE FOR NOW. ADD VANCOMYCIN TO COVER FOR MRSA AND E. FAECALIS. PATIENT WBC TRENDING UP (WBC=31.7 ON 09/11)) CHELY DAVE Sep 11, 2024 11:39
[2024-09-11] MEDS ORDERED: VANCOMYCIN PER PHARMACY 0 MG IV SCH (11:45)
[2024-09-11] MEDS: VANCOMYCIN 500mg/100mL 100 ML IV ONE (12:22)
--- NOTE | 2024-09-11 14:03 | DVHPN2 ---
Subjective Sedated and intubated Reviewed: Care Plan, H&P, Labs, Medications, Previous Orders, Radiology, Other (Consultants) Changes from previous H/P or p: No Changes Objective Vitals Vital Signs Date Time Temp Pulse Resp B/P (MAP) Pulse Ox O2 Delivery O2 Flow Rate FiO2 09/11/24 13:45 98.4 75 24 102/61 (75) 95 209.1 09/11/24 12:19 60 09/11/24 10:00 Mechanical Ventilator+ Intake/Output Intake and Output 09/11/24 07:00 Intake Total 1799.821 ml Output Total 500 ml Balance 1299.821 ml Intake Oral 150 ml IV Total 1542.821 ml Tube Feeding 107 ml Output Urine Total 500 ml General Appearance: Other (Sedated and intubated) HEENT: Atraumatic Lungs: Other (Crackles bilateral lungs) Cardiovascular: Regular rate Abdomen: Other Extremities: Other (Decreased edema bilateral lower extremities/skin shrinkage) Medications Current Medications Medications Dose Ordered Sig/Acacia Route Start Time Stop Time Status Last Admin Dose Admin Fentanyl Citrate 250 ml @ 2.5 mls/hr Q24H IV 09/02/24 15:45 09/11/24 07:58 25 MLS/HR Albuterol 2.5 mg Q4HWA PRN NEB 09/02/24 18:30 09/11/24 06:33 2.5 MG Ipratropium [place] 0.5 mg Q4HWA PRN NEB 09/02/24 18:30 09/11/24 06:33 0.5 MG Acetaminophen 650 mg Q4HP PRN GT 09/03/24 10:00 09/03/24 10:21 650 MG Norepinephrine Bitartrate 32 mg/ Sodium Chloride 250 ml @ 0.938 mls/ hr Q24H IV 09/03/24 12:30 09/11/24 03:15 2.813 MLS/HR Vasopressin 20 units/Sodium Chloride 100 ml @ 9 mls/hr Q11H7M IV 09/03/24 15:30 Pantoprazole Sodium 40 mg DAILY IV 09/04/24 10:00 09/11/24 08:57 40 MG Docusate Sodium 200 mg BID NG 09/06/24 22:00 09/11/24 08:57 200 MG Sennosides 17.2 mg HS PO 09/06/24 22:00 09/10/24 21:22 17.2 MG Ceftriaxone Sodium/Dextrose 50 ml @ 50 mls/hr DAILY IV 09/07/24 10:00 09/11/24 08:58 50 MLS/HR Acetylcysteine 200 mg Q8HR NEB 09/07/24 14:00 09/11/24 06:33 200 MG Atorvastatin Calcium 40 mg HS PO 09/07/24 22:00 09/10/24 21:22 40 MG Enoxaparin Sodium 30 mg DAILY SC 09/08/24 10:00 09/11/24 08:58 30 MG Lactulose 30 ml Q8HR PO 09/08/24 09:45 09/11/24 12:16 30 ML Propofol 100 ml @ 3.54 mls/hr Q24H IV 09/09/24 16:30 09/11/24 11:50 35.4 MLS/HR Hydrocortisone Sodium Succinate 100 mg DAILY IV 09/10/24 13:15 09/11/24 08:58 100 MG Enteral Nutritional Formula 1,000 ml 30ML/HR GT 09/10/24 13:15 Metoclopramide HCl 5 mg Q8HR IV 09/10/24 13:45 09/11/24 12:17 5 MG Midazolam HCl 50 ml @ 1 mls/hr Q24H IV 09/10/24 14:45 09/10/24 22:17 2 MLS/HR Linezolid 300 ml @ 150 mls/hr Q12HR IV 09/11/24 22:00 Laboratory Results Laboratory Tests 09/11/24 03:06 Chemistry Test 09/11/24 03:06 Albumin 4.0 g/dL (3.2-4.8) Calcium Level 9.8 mg/dL (8.7-10.4) Total Protein 6.4 g/dL (5.7-8.2) LFT Test 09/11/24 03:06 Alanine Aminotransferase (ALT) 42 U/L (7-40) H Alkaline Phosphatase 107 U/L (46-116) Aspartate Amino Transferase (AST) 46 U/L (13-40) H Total Bilirubin 0.4 mg/dL (0.2-1.0) Urinalysis Test 09/04/24 14:26 Urine Color Yellow (Yellow) Urine Clarity Turbid (Clear) H Urine pH 5.0 (5.0-9.0) Urine Specific [place] 1.021 (1.001-1.035) Urine Protein 2+ (Negative) H Urine Ketones Trace (Negative) Urine Blood 3+ /uL (Negative) H Urine Nitrite Negative (Negative) Urine Bilirubin Negative (Negative) Urine Urobilinogen Normal mg/dL (Negative) Urine Leukocyte Esterase Negative /uL (Negative) Urine RBC 8 /hpf (0 - 4) Urine WBC 12 /hpf (0 - 5) Urine Squamous Epithelial Cells Few /hpf (<5) Urine Amorphous Crystals Few /hpf (None Seen) Urine Bacteria Few /hpf (None Seen) H Urine Creatinine 148.33 mg/dL (30.0-125.0) H Urine Sodium 24 mmol/L (40-220) L Urine Glucose 1+ mg/dL (Normal) H Urine Total Protein 253.7 mg/dL (1-14) H Blood Gas Results Test 09/11/24 07:36 Arterial Blood pH 7.371 (7.350-7.450) FiO2 % 40.0 Microbiology Microbiology Date/Time Source Procedure Growth Status 09/08/24 14:33 Bronchial Washings Gram Stain - Final Resulted 09/08/24 14:33 Bronchial Washings Respiratory Culture - Preliminary Resulted 09/07/24 09:28 Blood Blood Culture - Preliminary NO GROWTH AFTER 72 HOURS OF INCUBATION. Resulted 09/06/24 13:00 Vaginal Vaginal Culture - Final Enterococcus faecalis Methicillin Resistant S.aureus Complete 09/04/24 20:40 Nose MRSA Screen - Final Complete 09/02/24 16:00 Urine - [place] Urine Culture - Final Complete Assessment/Plan Assessment/Plan Acute respiratory failure/intubated Pneumonia Positive for staph aureus and coag-negative staph Septic shock Acute kidney injury/acute renal failure requiring dialysis/possibly temporary History of PE Morbid obesity Leukocytosis Small bilateral pleural effusion Plan: Stop vancomycin due to the kidney function. Start Zyvox to help with the staph infection and leukocytosis. Continue Rocephin. Repeat labs and x-rays. Blood cultures. Further plan per orders Total critical care time 40 minutes. Plan discussed with: Other (Nursing) My Orders Orders - MARIA LUZ RAMIREZ MD Procedure Category Date Status Time Linezolid 600mg/300ml PHA 09/11/24 In Process (Zyvox) 22:00 Complete Blood Count LAB 09/12/24 Verified 06:00 Comprehensive LAB 09/12/24 Verified Metabolic Panel 06:00 C-Reactive Protein LAB 09/12/24 Verified 05:00 Erythrocyte LAB 09/12/24 Verified Sedimentation Rate 05:00 Chest Portable XY 09/12/24 Logged 06:00 Abg W/ Co-Ox RT 09/12/24 Logged 06:00 Date of Service: Sep 11, 2024 Billing Provider: MARIA LUZ RAMIREZ MD Common Visit Codes: [id number] CARE 30-74 MIN MARIA LUZ RAMIREZ MD Sep 11, 2024 14:03
--- NOTE | 2024-09-11 14:19 | DVHPN2 ---
Progress Note - Dictate Date Seen: Sep 11, 2024 Has the PT tested + for MRSA If YES, has PT been informed?: Yes Medical Necessity Reason Pt with a Central, PICC or Fol: Yes The following are medically ne: Betancourt Catheter Reason for betancourt catheter: Strict I&O Subjective Patient was seen and evaluated in follow up in the ICU. Patient is intubated and sedated on ventilator. 40% FiO20 Patient remains on vasopressors. Vaginal culture grew coagulase negative staphylococcus. Patient received HD yesterday afternoon. Chest x-ray is unchanged. WBC 31.7, BUN 60, FLEET ADMINISTRATOR 3, AST 46, ALT 42. vital signs Vital Sign Date Time Temp Pulse Resp B/P (MAP) Pulse Ox O2 Delivery O2 Flow Rate FiO2 09/11/24 11:50 115/56 09/11/24 11:00 98.8 73 22 93 209.8 09/11/24 10:40 40 09/11/24 10:00 Mechanical Ventilator+ Total Intake and Output 09/10/24 09/10/24 09/11/24 15:00 23:00 07:00 Intake Total 503.852 ml 584.203 ml 711.766 ml Output Total 200 ml 300 ml Balance 503.852 ml 384.203 ml 411.766 ml medications Current Medications Medications Dose Ordered Sig/[place]acia Route Start Time Stop Time Status Last Admin Dose Admin Fentanyl Citrate 250 ml @ 2.5 mls/hr Q24H IV 09/02/24 15:45 09/11/24 07:58 25 MLS/HR Albuterol 2.5 mg Q4HWA PRN NEB 09/02/24 18:30 09/11/24 06:33 2.5 MG Ipratropium [place] 0.5 mg Q4HWA PRN NEB 09/02/24 18:30 09/11/24 06:33 0.5 MG Acetaminophen 650 mg Q4HP PRN GT 09/03/24 10:00 09/03/24 10:21 650 MG Norepinephrine Bitartrate 32 mg/ Sodium Chloride 250 ml @ 0.938 mls/ hr Q24H IV 09/03/24 12:30 09/11/24 03:15 2.813 MLS/HR Vasopressin 20 units/Sodium Chloride 100 ml @ 9 mls/hr Q11H7M IV 09/03/24 15:30 Pantoprazole Sodium 40 mg DAILY IV 09/04/24 10:00 09/11/24 08:57 40 MG Docusate Sodium 200 mg BID NG 09/06/24 22:00 09/11/24 08:57 200 MG Sennosides 17.2 mg HS PO 09/06/24 22:00 09/10/24 21:22 17.2 MG Ceftriaxone Sodium/Dextrose 50 ml @ 50 mls/hr DAILY IV 09/07/24 10:00 09/11/24 08:58 50 MLS/HR Acetylcysteine 200 mg Q8HR NEB 09/07/24 14:00 09/11/24 06:33 200 MG Atorvastatin Calcium 40 mg HS PO 09/07/24 22:00 09/10/24 21:22 40 MG Enoxaparin Sodium 30 mg DAILY SC 09/08/24 10:00 09/11/24 08:58 30 MG Lactulose 30 ml Q8HR PO 09/08/24 09:45 09/11/24 05:01 30 ML Propofol 100 ml @ 3.54 mls/hr Q24H IV 09/09/24 16:30 09/11/24 11:50 35.4 MLS/HR Hydrocortisone Sodium Succinate 100 mg DAILY IV 09/10/24 13:15 09/11/24 08:58 100 MG Enteral Nutritional Formula 1,000 ml 30ML/HR GT 09/10/24 13:15 Metoclopramide HCl 5 mg Q8HR IV 09/10/24 13:45 09/11/24 05:01 5 MG Midazolam HCl 50 ml @ 1 mls/hr Q24H IV 09/10/24 14:45 09/10/24 22:17 2 MLS/HR Vancomycin HCl 0 ml @ 0 mls/hr UD IV 09/11/24 11:45 objective GENERAL: Intubated on ventilator. Morbidly obese LUNGS: Decreased breath sounds. CARDIOVASCULAR: Heart sounds are good. ABDOMEN: Soft. Morbid pannus limited physical palpation. SKIN: Multiple scars to abdomen. Two open areas on abdomen with oozing wounds. laboratory and microbiology Laboratory Tests 09/11/24 03:06 Test 09/11/24 03:06 Range/Units Serum Glucose 96 74-106 mg/dL Problem List Septic shock. Acute on chronic respiratory failure. NSTEMI type II secondary to above. Rule out structural heart disease. Prolonged QT interval. Morbid obesity, Class 3. Assessment/Plan Continued all current supportive medical care. IV antibiotics as ordered. Vasopressors for hemodynamic support. GI prophylactics. Additional plan as per the hospital course. Critical care time of 45 minutes provided to include time spent evaluation of patient at bedside, when appropriate patient/family education for diagnosis, treatment plan, review of pertinent medical information and discussion of care with specialty providers and PCP. Mechanical ventilator parameters, treatment and adjustments have personally been reviewed by me and treatment plan by safety deposit clerk has also been reviewed. Dietary Evaluation Review Comments: 1. Consider EN/TPN if NPO >7days 2. Continue plan of care Expected Outcomes/Goals: 1. Pt will meet >75% of estimated needs within 2-3 days Plan discussed with: Other RELL STEWART MD Sep 11, 2024 11:58
[2024-09-11 15:40] LABS: Urine Bacteria FEW /hpf (None Seen); Urine Blood 2+ /uL (Negative); Urine Clarity Ex.Turbid (Clear); Urine Color Light-Orange (Yellow); Urine Mucus FEW (None Seen); Urine Protein, UAD 1+ (Negative); Urine Specific Gravity 1.016 (1.001-1.035); Urine Squamous Epithelial Cell MOD /hpf (<5); Urine Urobilinogen Normal (Negative); Urine WBC 40 /hpf (0 - 5); Urine pH 5.5 (5.0-9.0)
--- NOTE | 2024-09-11 19:24 | DVHPN2 ---
Progress Note Date Seen: Sep 11, 2024 Has the PT tested + for MRSA If YES, has PT been informed?: Yes Medical Necessity Reason Pt with a Central, PICC or Fol: Yes The following are medically ne: Betancourt Catheter Reason for betancourt catheter: Strict I&O Subjective Patient reports: Other (Remains intubated) Review of Systems: Deferred Objective vital signs Vital Sign Date Time Temp Pulse Resp B/P (MAP) Pulse Ox O2 Delivery O2 Flow Rate FiO2 09/11/24 19:19 106/55 09/11/24 19:00 76 22 98 09/11/24 18:00 50 09/11/24 16:45 97.7 207.9 09/11/24 10:00 Mechanical Ventilator+ Total Intake and Output 09/10/24 09/10/24 09/11/24 15:00 23:00 07:00 Intake Total 503.852 ml 584.203 ml 711.766 ml Output Total 200 ml 300 ml Balance 503.852 ml 384.203 ml 411.766 ml medications Current Medications Medications Dose Ordered Sig/[place] Route Start Time Stop Time Status Last Admin Dose Admin Fentanyl Citrate 250 ml @ 2.5 mls/hr Q24H IV 09/02/24 15:45 09/11/24 16:38 25 MLS/HR Albuterol 2.5 mg Q4HWA PRN NEB 09/02/24 18:30 09/11/24 14:07 2.5 MG Ipratropium [place] 0.5 mg Q4HWA PRN NEB 09/02/24 18:30 09/11/24 14:07 0.5 MG Acetaminophen 650 mg Q4HP PRN GT 09/03/24 10:00 09/03/24 10:21 650 MG Norepinephrine Bitartrate 32 mg/ Sodium Chloride 250 ml @ 0.938 mls/ hr Q24H IV 09/03/24 12:30 09/11/24 03:15 2.813 MLS/HR Vasopressin 20 units/Sodium Chloride 100 ml @ 9 mls/hr Q11H7M IV 09/03/24 15:30 Pantoprazole Sodium 40 mg DAILY IV 09/04/24 10:00 09/11/24 08:57 40 MG Docusate Sodium 200 mg BID NG 09/06/24 22:00 09/11/24 08:57 200 MG Sennosides 17.2 mg HS PO 09/06/24 22:00 09/10/24 21:22 17.2 MG Ceftriaxone Sodium/Dextrose 50 ml @ 50 mls/hr DAILY IV 09/07/24 10:00 09/11/24 08:58 50 MLS/HR Acetylcysteine 200 mg Q8HR NEB 09/07/24 14:00 09/11/24 14:07 200 MG Atorvastatin Calcium 40 mg HS PO 09/07/24 22:00 09/10/24 21:22 40 MG Enoxaparin Sodium 30 mg DAILY SC 09/08/24 10:00 09/11/24 08:58 30 MG Lactulose 30 ml Q8HR PO 09/08/24 09:45 09/11/24 12:16 30 ML Propofol 100 ml @ 3.54 mls/hr Q24H IV 09/09/24 16:30 09/11/24 19:19 35.4 MLS/HR Hydrocortisone Sodium Succinate 100 mg DAILY IV 09/10/24 13:15 09/11/24 08:58 100 MG Enteral Nutritional Formula 1,000 ml 30ML/HR GT 09/10/24 13:15 Metoclopramide HCl 5 mg Q8HR IV 09/10/24 13:45 09/11/24 12:17 5 MG Midazolam HCl 50 ml @ 1 mls/hr Q24H IV 09/10/24 14:45 09/11/24 15:14 4 MLS/HR Linezolid 300 ml @ 150 mls/hr Q12HR IV 09/11/24 22:00 Examination: GENERAL:Abnormal, LUNGS:Abnormal, MSK:Abnormal laboratory and microbiology Laboratory Tests 09/11/24 03:06 Test 09/11/24 03:06 Range/Units Serum Glucose 96 74-106 mg/dL Microbiology Date/Time Source Procedure Growth Status 09/08/24 14:33 Bronchial Washings Gram Stain - Final Resulted 09/08/24 14:33 Bronchial Washings Respiratory Culture - Preliminary Resulted 09/07/24 09:28 Blood Blood Culture - Preliminary NO GROWTH AFTER 72 HOURS OF INCUBATION. Resulted 09/06/24 13:00 Vaginal Vaginal Culture - Final Enterococcus faecalis Methicillin Resistant S.aureus Complete 09/04/24 20:40 Nose MRSA Screen - Final Complete 09/02/24 16:00 Urine - [place] Urine Culture - Final Complete Problem List/Assessment/Plan Problem List/Assessment/Plan Acute kidney injury superimposed Chronic Kidney Disease secondary to hemodynamic etiology +/- tubular injury oliguric requiring initiation of hemodialysis Acute respiratory failure, patient intubated on ventilator CKD stage IIIA? Septic shock with multiorgan involvement history of PE Hyperkalemia Vancomycin toxicity recs Lasix IV b.i.d. next HD friday Plan discussed with: Other My Orders My Orders Orders - NAILA IBARRA MD Procedure Category Date Status Time Furosemide Injection PHA 09/11/24 Transmitted (Lasix Injection) 19:30 Dietary Evaluation Review Comments: 1. Consider EN/TPN if NPO >7days 2. Continue plan of care Expected Outcomes/Goals: 1. Pt will meet >75% of estimated needs within 2-3 days NAILA IBARRA MD Sep 11, 2024 19:24
[2024-09-11] MEDS: FUROSEMIDE 100 MG/10ML VIAL IV SCH (19:57)
[2024-09-11] MEDS: LINEZOLID 600MG/300ML 300 ML IV SCH (21:47)
--- NOTE | 2024-09-11 23:19 | DVHPN2 ---
Progress Note - Dictate Date Seen: Sep 11, 2024 Has the PT tested + for MRSA If YES, has PT been informed?: Yes Medical Necessity Reason Pt with a Central, PICC or Fol: Yes The following are medically ne: Betancourt Catheter Reason for betancourt catheter: Strict I&O Subjective Patient seen and examined at bedside. Sedated, intubated on mechanical ventilator. Overnight events reviewed. vital signs Vital Sign Date Time Temp Pulse Resp B/P (MAP) Pulse Ox O2 Delivery O2 Flow Rate FiO2 09/11/24 23:00 76 22 103/53 (70) 100 09/11/24 22:07 40 09/11/24 20:00 98.4 98.4 09/11/24 20:00 Mechanical Ventilator+ Total Intake and Output 09/10/24 09/10/24 09/11/24 15:00 23:00 07:00 Intake Total 503.852 ml 584.203 ml 711.766 ml Output Total 200 ml 300 ml Balance 503.852 ml 384.203 ml 411.766 ml medications Current Medications Medications Dose Ordered Sig/Acacia Route Start Time Stop Time Status Last Admin Dose Admin Fentanyl Citrate 250 ml @ 2.5 mls/hr Q24H IV 09/02/24 15:45 09/11/24 16:38 25 MLS/HR Albuterol 2.5 mg Q4HWA PRN NEB 09/02/24 18:30 09/11/24 22:06 2.5 MG Ipratropium [place] 0.5 mg Q4HWA PRN NEB 09/02/24 18:30 09/11/24 22:06 0.5 MG Acetaminophen 650 mg Q4HP PRN GT 09/03/24 10:00 09/03/24 10:21 650 MG Norepinephrine Bitartrate 32 mg/ Sodium Chloride 250 ml @ 0.938 mls/ hr Q24H IV 09/03/24 12:30 09/11/24 03:15 2.813 MLS/HR Vasopressin 20 units/Sodium Chloride 100 ml @ 9 mls/hr Q11H7M IV 09/03/24 15:30 Pantoprazole Sodium 40 mg DAILY IV 09/04/24 10:00 09/11/24 08:57 40 MG Docusate Sodium 200 mg BID NG 09/06/24 22:00 09/11/24 21:48 200 MG Sennosides 17.2 mg HS PO 09/06/24 22:00 09/11/24 21:47 17.2 MG Ceftriaxone Sodium/Dextrose 50 ml @ 50 mls/hr DAILY IV 09/07/24 10:00 09/11/24 08:58 50 MLS/HR Acetylcysteine 200 mg Q8HR NEB 09/07/24 14:00 09/11/24 22:06 200 MG Atorvastatin Calcium 40 mg HS PO 09/07/24 22:00 09/11/24 21:47 40 MG Enoxaparin Sodium 30 mg DAILY SC 09/08/24 10:00 09/11/24 08:58 30 MG Lactulose 30 ml Q8HR PO 09/08/24 09:45 09/11/24 21:48 30 ML Propofol 100 ml @ 3.54 mls/hr Q24H IV 09/09/24 16:30 09/11/24 21:39 35.4 MLS/HR Hydrocortisone Sodium Succinate 100 mg DAILY IV 09/10/24 13:15 09/11/24 08:58 100 MG Enteral Nutritional Formula 1,000 ml 30ML/HR GT 09/10/24 13:15 Metoclopramide HCl 5 mg Q8HR IV 09/10/24 13:45 09/11/24 21:48 5 MG Midazolam HCl 50 ml @ 1 mls/hr Q24H IV 09/10/24 14:45 09/11/24 15:14 4 MLS/HR Linezolid 300 ml @ 150 mls/hr Q12HR IV 09/11/24 22:00 09/11/24 21:47 150 MLS/HR Furosemide 60 mg BIDD IV 09/11/24 19:30 09/11/24 19:57 60 MG objective Gen.: Patient lying in bed in medical ICU. Sedated, intubated on mechanical ventilator. Head: Normocephalic, atraumatic. Eyes: PERRLA. Ears: Normal external anatomy. Throat: Endotracheal tube and orogastric tube in place. Neck: Supple, trachea midline. Chest: Transmitted breath sounds bilaterally. Decreased air entry bilaterally. No wheezing. Bibasilar crackles. Cardio vascular: Positive S1, positive S2. Regular rate and rhythm. Abdomen: Positive bowel sounds in all 4 quadrants. Soft, nontender, nondistended. : Betancourt in place. Normal external genitalia. Rectal: Deferred Skin: Warm, dry. Intact. Extremities: 2+ radial pulses bilaterally. No lower extremity edema. Neuro: Sedated. laboratory and microbiology Laboratory Tests 09/11/24 03:06 Test 09/11/24 03:06 Range/Units Serum Glucose 96 74-106 mg/dL Assessment/Plan Impression: Acute on chronic hypoxic respiratory failure On mechanical ventilator Pulmonary edema Pleural effusion, left Atelectasis Leukocytosis Lactic acidosis Morbid obesity, BMI 40 Events: Remains on vent support On pressure control with a respiratory rate of 22, inspiratory pressure of 18, I-time of 0.9 seconds, PEEP of 8, FiO2 at 50%. Improved FiO2 requirements. Patient tolerating turns. Sedated on Versed, Propofol drip. On pressors for hemodynamic support Levophed 2 mcg/min Titrate to keep mean arterial pressure greater than 65 mmHg. Patient with constipation. Taper FiO2 as tolerated. Continue antibiotics - Started Zyvox.. Vancomycin stopped d/t kidney failure. Rocephin. Continue to monitor respiratory status closely. Poor prognosis due to multiorgan failure - renal, respiratory and liver failure. Labs and imaging reviewed. Rest of plan as noted below. Plan: s/p intubation on mechanical ventilator CXR image and report reviewed. Devices in place. Pulmonary edema. Small left pleural effusion. Atelectasis. ABG reviewed. Alkalemia due to respiratory alkalosis, hypoxemia PaO2 40.4 mmHg On pressure control with a respiratory rate of 22, inspiratory pressure of 18, I-time of 0.9 seconds, PEEP of 8, FiO2 at 50%. Titrate FIO2 to keep O2 saturation above 92%. VAP bundle Daily ABG and CXR while intubated. Sedate for ventilatory synchrony Bronchodilators Pressors as necessary for hemodynamic support. Titrate to keep MAP above 65 mmHg/SBP above 90 mmHg. Continue antibiotics. F/u cultures. Elevated WBC Monitor renal function Monitor ins/outs. Monitor electrolytes. Supplement as necessary. Monitor lactic acid On IVF Nutritional support. Accucheks, ISS. GI/DVT prophylaxis. Condition: Critical Prognosis: Poor given multiple comorbidities. Rest of plan per hospitalist and other consultants. A total of 35 minutes of critical care time was spent reviewing the patient record, examining the patient, making a diagnostic and therapeutic plan, discussing this plan with the medical personnel, following up on diagnostic studies and following the patient for clinical stability excluding any and all procedures. At least 50% of this time was spent in direct, [id number] contact. Thank you Dr. Banda for allowing me to participate in this patient's care. Further recommendations will depend on patient's clinical course. Please do not hesitate to contact me if you have any questions or concerns. This medical document was created using an electronic medical record system with [email or web address] dictation system. Although this document has been carefully reviewed, there may still be some phonetic and typographical errors. These areas are purely typographical due to imperfections of the software programs, and do not reflect any compromise in the patient's medical care. Dietary Evaluation Review Comments: 1. Consider EN/TPN if NPO >7days 2. Continue plan of care Expected Outcomes/Goals: 1. Pt will meet >75% of estimated needs within 2-3 days Plan discussed with: Other (DEIDRE Bernabe) Critical Care Time(min): 35 SHAI SINGH MD Sep 11, 2024 23:18
[2024-09-12] VITALS (116 sets, daily range): BP systolic 89–129; BP diastolic 47–68; PULSE 67–82; RESP 22–23; TEMP 97.7–98.9; O2SAT 89–100
[2024-09-12 04:04] LABS: Hematocrit 37.1 % (36.0-46.0); Hemoglobin 12.3 g/dL (12.2-16.2); Mean Corpuscular Hemoglobin 29.5 pg (28.0-32.0); Mean Corpuscular Hgb Conc. 33.1 g/dL (32.0-36.0); Mean Corpuscular Volume 89.3 fL (80.0-100.0); Platelet Count (auto) 247 10^3/uL (140-450); Red Blood Cells 4.15 10^6/uL (4.0-5.20); Red Cell Distribution Width 13.6 % (11.8-14.3); White Blood Cell 29.8 10^3/uL (4.4-10.8)
[2024-09-12 04:15] LABS: Basophils % (manual) 0 (0.0-2.0); Blast Cells 0; Metamyelocytes % 0; Myelocytes % 0; Promyelocytes % 0; Reactive Lymphocytes 0
[2024-09-12 04:24] LABS: Alkaline Phosphatase 107 U/L (46-116); Anion Gap 19 (5-15); BUN/Creatinine Ratio 24.9 (10.0-20.0); Calcium 9.6 mg/dL (8.7-10.4); Carbon Dioxide 22 mmol/L (20-31); Glucose 91 mg/dL (74-106); Potassium 3.6 mmol/L (3.5-5.1); Sodium 136 mmol/L (136-145)
[2024-09-12 04:26] LABS: Albumin 3.6 g/dL (3.2-4.8); Bilirubin, Total 0.4 mg/dL (0.2-1.0)
[2024-09-12 04:33] LABS: Alanine Aminotransferase 40 U/L (7-40); Aspartate Aminotransferase 42 U/L (13-40); Blood Urea Nitrogen 78 mg/dL (9-23); Chloride 95 mmol/L (98-107)
[2024-09-12 04:51] LABS: Erythrocyte Sedimentation Rate 66 mm/hr (0-20)
[2024-09-12 05:02] LABS: Band Neutrophils % (manual) 7; Eosinophils % (manual) 2 (0-7); Lymphocytes % (manual) 5 (10.0-50.0); Monocytes % (manual) 6 (0-12)
[2024-09-12 05:03] LABS: Platelet Estimate Adequate
[2024-09-12 05:07] LABS: CRP High Sensitivity 13.19 mg/dL (<1.0)
[2024-09-12 07:13] LABS: Base Excess -1.8 mmol/L (-2.0-3.0)
--- NOTE | 2024-09-12 07:53 | DVH ---
CLINICAL INFORMATION: 63 years old, Female; follow-up. No other clinical information provided. TECHNIQUE: Single AP portable chest radiograph was obtained. COMPARISON: XY CHEST XRAY 1 VIEW on DOS: 09/11/24, XY CHEST XRAY 1 VIEW on DOS: 09/10/24, XY CHEST XR AY 1 VIEW on DOS: 09/09/24 FINDINGS: Stable positioning of the endotracheal tube, enteric tube, right internal jugular central venous cath eter, and right subclavian catheter. Grossly stable bilateral pleural effusions with overlying atele ctasis and consolidation. No other significant interval change. IMPRESSION: No significant interval change as detailed above.
--- NOTE | 2024-09-12 09:28 | DVHPN2 ---
Subjective Sedated and intubated Reviewed: Care Plan, H&P, Labs, Medications, Previous Orders, Radiology, Other (Consultants) Changes from previous H/P or p: No Changes Objective Vitals Vital Signs Date Time Temp Pulse Resp B/P (MAP) Pulse Ox O2 Delivery O2 Flow Rate FiO2 09/12/24 09:00 78 22 104/56 (72) 89 09/12/24 08:28 40 09/12/24 08:00 98.1 98.1 09/12/24 07:32 Mechanical Ventilator+ Intake/Output Intake and Output 09/12/24 07:00 Intake Total 4165.977 ml Output Total 1550 ml Balance 2615.977 ml Intake Oral 160 ml IV Total 3810.977 ml Tube Feeding 110 ml Other 85 ml Output Urine Total 1550 ml General Appearance: Other (Sedated and intubated) HEENT: Atraumatic, PERRLA Lungs: Other (Crackles bilateral lungs) Cardiovascular: Regular rate Abdomen: Other Extremities: Other (Decreased edema bilateral lower extremities/skin shrinkage) Medications Current Medications Medications Dose Ordered Sig/Acacia Route Start Time Stop Time Status Last Admin Dose Admin Fentanyl Citrate 250 ml @ 2.5 mls/hr Q24H IV 09/02/24 15:45 09/12/24 02:41 25 MLS/HR Albuterol 2.5 mg Q4HWA PRN NEB 09/02/24 18:30 09/12/24 06:40 2.5 MG Ipratropium [place] 0.5 mg Q4HWA PRN NEB 09/02/24 18:30 09/12/24 06:40 0.5 MG Acetaminophen 650 mg Q4HP PRN GT 09/03/24 10:00 09/03/24 10:21 650 MG Norepinephrine Bitartrate 32 mg/ Sodium Chloride 250 ml @ 0.938 mls/ hr Q24H IV 09/03/24 12:30 09/11/24 03:15 2.813 MLS/HR Vasopressin 20 units/Sodium Chloride 100 ml @ 9 mls/hr Q11H7M IV 09/03/24 15:30 Pantoprazole Sodium 40 mg DAILY IV 09/04/24 10:00 09/12/24 07:54 40 MG Docusate Sodium 200 mg BID NG 09/06/24 22:00 09/12/24 07:54 200 MG Sennosides 17.2 mg HS PO 09/06/24 22:00 09/11/24 21:47 17.2 MG Ceftriaxone Sodium/Dextrose 50 ml @ 50 mls/hr DAILY IV 09/07/24 10:00 09/11/24 08:58 50 MLS/HR Acetylcysteine 200 mg Q8HR NEB 09/07/24 14:00 09/12/24 06:40 200 MG Atorvastatin Calcium 40 mg HS PO 09/07/24 22:00 09/11/24 21:47 40 MG Enoxaparin Sodium 30 mg DAILY SC 09/08/24 10:00 09/12/24 07:54 30 MG Lactulose 30 ml Q8HR PO 09/08/24 09:45 09/12/24 05:23 30 ML Propofol 100 ml @ 3.54 mls/hr Q24H IV 09/09/24 16:30 09/12/24 07:45 35.4 MLS/HR Hydrocortisone Sodium Succinate 100 mg DAILY IV 09/10/24 13:15 09/12/24 07:54 100 MG Enteral Nutritional Formula 1,000 ml 30ML/HR GT 09/10/24 13:15 Metoclopramide HCl 5 mg Q8HR IV 09/10/24 13:45 09/12/24 05:24 5 MG Midazolam HCl 50 ml @ 1 mls/hr Q24H IV 09/10/24 14:45 09/12/24 02:39 4 MLS/HR Linezolid 300 ml @ 150 mls/hr Q12HR IV 09/11/24 22:00 09/12/24 07:55 150 MLS/HR Furosemide 60 mg BIDD IV 09/11/24 19:30 09/12/24 05:24 60 MG Laboratory Results Laboratory Tests 09/12/24 03:05 Chemistry Test 09/12/24 03:05 Albumin 3.6 g/dL (3.2-4.8) Calcium Level 9.6 mg/dL (8.7-10.4) Total Protein 6.0 g/dL (5.7-8.2) LFT Test 09/12/24 03:05 Alanine Aminotransferase (ALT) 40 U/L (7-40) Alkaline Phosphatase 107 U/L (46-116) Aspartate Amino Transferase (AST) 42 U/L (13-40) H Total Bilirubin 0.4 mg/dL (0.2-1.0) Urinalysis Test 09/04/24 14:26 09/11/24 00:00 Urine Amorphous Crystals Few /hpf (None Seen) Urine Creatinine 148.33 mg/dL (30.0-125.0) H Urine Sodium 24 mmol/L (40-220) L Urine Total Protein 253.7 mg/dL (1-14) H Urine Color Light-orange (Yellow) Urine Clarity Ex.turbid (Clear) Urine pH 5.5 (5.0-9.0) Urine Specific [place] 1.016 (1.001-1.035) Urine Protein 1+ (Negative) H Urine Ketones Negative (Negative) Urine Blood 2+ /uL (Negative) H Urine Nitrite Negative (Negative) Urine Bilirubin Negative (Negative) Urine Urobilinogen Normal mg/dL (Negative) Urine Leukocyte Esterase Negative /uL (Negative) Urine RBC 20 /hpf (0 - 4) Urine WBC 40 /hpf (0 - 5) Urine Squamous Epithelial Cells Mod /hpf (<5) Urine Bacteria Few /hpf (None Seen) H Urine Mucus Few (None Seen) Urine Glucose Normal mg/dL (Normal) Blood Gas Results Test 09/12/24 07:00 Arterial Blood pH 7.459 (7.350-7.450) FiO2 % 40.0 Microbiology Microbiology Date/Time Source Procedure Growth Status 09/11/24 00:00 Voided Urine Urine Culture - Preliminary Resulted 09/08/24 14:33 Bronchial Washings Gram Stain - Final Complete 09/08/24 14:33 Bronchial Washings Respiratory Culture - Final Complete 09/07/24 09:28 Blood Blood Culture - Preliminary NO GROWTH AFTER 72 HOURS OF INCUBATION. Resulted 09/06/24 13:00 Vaginal Vaginal Culture - Final Enterococcus faecalis Methicillin Resistant S.aureus Complete 09/04/24 20:40 Nose MRSA Screen - Final Complete Assessment/Plan Assessment/Plan Acute respiratory failure/intubated Pneumonia Positive for staph aureus and coag-negative staph Septic shock Acute kidney injury/acute renal failure requiring dialysis/possibly temporary History of PE Morbid obesity Leukocytosis Small bilateral pleural effusion Plan: Ventilator support. Monitor vital signs and saturation. Repeat labs. Waiting for urine culture. Continue antibiotics. Further plan per orders Total critical care time 40 minutes. Plan discussed with: Other (Nursing) My Orders Orders - MARIA LUZ RAMIREZ MD Procedure Category Date Status Time Linezolid 600mg/300ml PHA 09/11/24 In Process (Zyvox) 22:00 Chest Portable XY 09/12/24 Resulted 06:00 Abg W/ Co-Ox RT 09/12/24 Logged 06:00 Blood Culture MOISES 09/11/24 In Process 14:03 Urine Bacterial MOISES 09/11/24 In Process Culture 14:04 Date of Service: Sep 12, 2024 Billing Provider: MAIRA LUZ RAMIREZ MD Common Visit Codes: 50547-AOXYOFPC CARE 30-74 MIN MARIA LUZ RAMIREZ MD Sep 12, 2024 09:28
--- NOTE | 2024-09-12 13:08 | DVHPN2 ---
Progress Note - Dictate Date Seen: Sep 12, 2024 Has the PT tested + for MRSA If YES, has PT been informed?: Yes Medical Necessity Reason Pt with a Central, PICC or Fol: Yes The following are medically ne: Betancourt Catheter Reason for betancourt catheter: Strict I&O Subjective Pharmacy called due to leucocytosis, She is sedated and intubated on mechanical ventilation. FiO2 decreased to 50%. s/p bronch 09/10 White count trending up, currently at 31.7, Dialysis tomorrow Linezolid started 09/11- 09/11 chest x-ray : There are low lung volumes. The heart is prominent size. Small bilateral pleural effusions, left greater than right with bibasilar atelectasis. No pneumothorax. Support lines and tubes appear unchanged in position. 09/04 : gall bladder US reviewed Chest US showed no evidence for right or left pleural effusion on the provided images. vital signs Vital Sign Date Time Temp Pulse Resp B/P (MAP) Pulse Ox O2 Delivery O2 Flow Rate FiO2 09/12/24 12: 98.9 71 22 96/55 (69) 93 98.9 09/12/24 12:03 80 09/12/24 07:32 Mechanical Ventilator+ Total Intake and Output 09/11/24 09/11/24 09/12/24 15:00 23:00 07:00 Intake Total 576.508 ml 969.578 ml 2619.891 ml Output Total 450 ml 1100 ml Balance 576.508 ml 519.578 ml 1519.891 ml medications Current Medications Medications Dose Ordered Sig/[place]acia Route Start Time Stop Time Status Last Admin Dose Admin Fentanyl Citrate 250 ml @ 2.5 mls/hr Q24H IV 09/02/24 15:45 09/12/24 12:15 25 MLS/HR Albuterol 2.5 mg Q4HWA PRN NEB 09/02/24 18:30 09/12/24 06:40 2.5 MG Ipratropium [place] 0.5 mg Q4HWA PRN NEB 09/02/24 18:30 09/12/24 06:40 0.5 MG Acetaminophen 650 mg Q4HP PRN GT 09/03/24 10:00 09/03/24 10:21 650 MG Norepinephrine Bitartrate 32 mg/ Sodium Chloride 250 ml @ 0.938 mls/ hr Q24H IV 09/03/24 12:30 09/11/24 03:15 2.813 MLS/HR Vasopressin 20 units/Sodium Chloride 100 ml @ 9 mls/hr Q11H7M IV 09/03/24 15:30 Pantoprazole Sodium 40 mg DAILY IV 09/04/24 10:00 09/12/24 07:54 40 MG Docusate Sodium 200 mg BID NG 09/06/24 22:00 09/12/24 07:54 200 MG Sennosides 17.2 mg HS PO 09/06/24 22:00 09/11/24 21:47 17.2 MG Ceftriaxone Sodium/Dextrose 50 ml @ 50 mls/hr DAILY IV 09/07/24 10:00 09/12/24 10:06 50 MLS/HR Acetylcysteine 200 mg Q8HR NEB 09/07/24 14:00 09/12/24 06:40 200 MG Atorvastatin Calcium 40 mg HS PO 09/07/24 22:00 09/11/24 21:47 40 MG Enoxaparin Sodium 30 mg DAILY SC 09/08/24 10:00 09/12/24 07:54 30 MG Lactulose 30 ml Q8HR PO 09/08/24 09:45 09/12/24 05:23 30 ML Propofol 100 ml @ 3.54 mls/hr Q24H IV 09/09/24 16:30 09/12/24 10:46 35.4 MLS/HR Hydrocortisone Sodium Succinate 100 mg DAILY IV 09/10/24 13:15 09/12/24 07:54 100 MG Enteral Nutritional Formula 1,000 ml 30ML/HR GT 09/10/24 13:15 Metoclopramide HCl 5 mg Q8HR IV 09/10/24 13:45 09/12/24 05:24 5 MG Midazolam HCl 50 ml @ 1 mls/hr Q24H IV 09/10/24 14:45 09/12/24 02:39 4 MLS/HR Linezolid 300 ml @ 150 mls/hr Q12HR IV 09/11/24 22:00 09/12/24 07:55 150 MLS/HR Furosemide 60 mg BIDD IV 09/11/24 19:30 09/12/24 05:24 60 MG objective General intubated and sedated HEENT: Atraumatic,intubated Neck: No swelling Lungs: Equal air entry and clear to auscultation Cardiovascular: S1 S2 heard no murmur Abdomen: Soft nontender, no organomegaly, nondistended Neuro: sedated, unable to assess Psych: unable to assess laboratory and microbiology Laboratory Tests 09/12/24 03:05 Test 09/12/24 03:05 Range/Units Serum Glucose 91 74-106 mg/dL Assessment/Plan Patient is a 63-year-old female presented to the hospital with: Staphylococcus aureus pneumonia ( MRSA) Streptococcus Pneumoniae pneumonia Septic shock resolving bacteremia : coag neg staphylococccus Acute Respiratory Failure [requiring mechanical ventilation] severe hypoxia Metabolic acidosis FEDE Morbidly obese BMI = 40 PE history Recommendations: vancomycin was on hold, trough/ random level was in range > 15 hence therapeutic for MRSA pneumonia; FIp2 is trending down from earlier few days ago which was 80% to now 40% patient is started on hydrocortisone from 09/10; hence leucocytosis posisbly related to steroids. discussed with pharmacy, to restarted Vancomycin Ceftriaxone is given today WBC trending up, likely reactive due to steroids ( baseline high) on pressors, if pressors requirement worsens, recommend repeat CT abdomen and pelvis with contrast, last scan was on 09/03 s/p bronch: follow new cultures from BAL Pulmonary on board for vent management Blood culture:co ag neg staph, i think its contaminated. Recent on 09/07 showed no growth Sputum culture: Positive for Staphylococcus aureus. nephrology is on board s.p HD Vaginal culture: Positive MRSA/ E feacalis full code prognosis very poor crit time 35 mins spent during the encounter. Thank you for consult and for giving an opportunity to take care of this patient. Dietary Evaluation Review Comments: 1. Consider EN/TPN if NPO >7days 2. Continue plan of care Expected Outcomes/Goals: 1. Pt will meet >75% of estimated needs within 2-3 days ANGELLA REYES MD Sep 12, 2024 13:08
--- NOTE | 2024-09-12 16:34 | DVHPN2 ---
Progress Note - Dictate Date Seen: Sep 12, 2024 Has the PT tested + for MRSA If YES, has PT been informed?: Yes Medical Necessity Reason Pt with a Central, PICC or Fol: Yes The following are medically ne: Betancourt Catheter Reason for betancourt catheter: Strict I&O Subjective Patient was seen and evaluated in follow up in the ICU. Patient is intubated and sedated on ventilator. FiO2 was increased to 80%. Patient continues not being able to tolerate any turning/repositioning due to desaturating. WBC 29.8, CL 95, BUN 78, DOWEL MACHINE OPERATOR 3.13, AST 42. Chest x-ray is unchanged. vital signs Vital Sign Date Time Temp Pulse Resp B/P (MAP) Pulse Ox O2 Delivery O2 Flow Rate FiO2 09/12/24 13:02 99/56 09/12/24 12:30 98.9 71 22 93 98.9 09/12/24 12:03 80 09/12/24 07:32 Mechanical Ventilator+ Total Intake and Output 09/11/24 09/11/24 09/12/24 15:00 23:00 07:00 Intake Total 576.508 ml 969.578 ml 2619.891 ml Output Total 450 ml 1100 ml Balance 576.508 ml 519.578 ml 1519.891 ml medications Current Medications Medications Dose Ordered Sig/[place] Route Start Time Stop Time Status Last Admin Dose Admin Fentanyl Citrate 250 ml @ 2.5 mls/hr Q24H IV 09/02/24 15:45 09/12/24 12:15 25 MLS/HR Albuterol 2.5 mg Q4HWA PRN NEB 09/02/24 18:30 09/12/24 06:40 2.5 MG Ipratropium [place] 0.5 mg Q4HWA PRN NEB 09/02/24 18:30 09/12/24 06:40 0.5 MG Acetaminophen 650 mg Q4HP PRN GT 09/03/24 10:00 09/03/24 10:21 650 MG Norepinephrine Bitartrate 32 mg/ Sodium Chloride 250 ml @ 0.938 mls/ hr Q24H IV 09/03/24 12:30 09/11/24 03:15 2.813 MLS/HR Vasopressin 20 units/Sodium Chloride 100 ml @ 9 mls/hr Q11H7M IV 09/03/24 15:30 Pantoprazole Sodium 40 mg DAILY IV 09/04/24 10:00 09/12/24 07:54 40 MG Docusate Sodium 200 mg BID NG 09/06/24 22:00 09/12/24 07:54 200 MG Sennosides 17.2 mg HS PO 09/06/24 22:00 09/11/24 21:47 17.2 MG Ceftriaxone Sodium/Dextrose 50 ml @ 50 mls/hr DAILY IV 09/07/24 10:00 09/12/24 10:06 50 MLS/HR Acetylcysteine 200 mg Q8HR NEB 09/07/24 14:00 09/12/24 06:40 200 MG Atorvastatin Calcium 40 mg HS PO 09/07/24 22:00 09/11/24 21:47 40 MG Enoxaparin Sodium 30 mg DAILY SC 09/08/24 10:00 09/12/24 07:54 30 MG Lactulose 30 ml Q8HR PO 09/08/24 09:45 09/12/24 13:04 30 ML Propofol 100 ml @ 3.54 mls/hr Q24H IV 09/09/24 16:30 09/12/24 13:02 35.4 MLS/HR Hydrocortisone Sodium Succinate 100 mg DAILY IV 09/10/24 13:15 09/12/24 07:54 100 MG Enteral Nutritional Formula 1,000 ml 30ML/HR GT 09/10/24 13:15 Metoclopramide HCl 5 mg Q8HR IV 09/10/24 13:45 09/12/24 05:24 5 MG Midazolam HCl 50 ml @ 1 mls/hr Q24H IV 09/10/24 14:45 09/12/24 02:39 4 MLS/HR Linezolid 300 ml @ 150 mls/hr Q12HR IV 09/11/24 22:00 09/12/24 07:55 150 MLS/HR Furosemide 60 mg BIDD IV 09/11/24 19:30 09/12/24 05:24 60 MG objective GENERAL: Intubated on ventilator. Morbidly obese LUNGS: Decreased breath sounds. CARDIOVASCULAR: Heart sounds are good. ABDOMEN: Soft. Morbid pannus limited physical palpation. SKIN: Multiple scars to abdomen. Two open areas on abdomen with oozing wounds. laboratory and microbiology Laboratory Tests 09/12/24 03:05 Test 09/12/24 03:05 Range/Units Serum Glucose 91 74-106 mg/dL Problem List Septic shock. Acute on chronic respiratory failure. NSTEMI type II secondary to above. Rule out structural heart disease. Prolonged QT interval. Morbid obesity, Class 3. Assessment/Plan Continued all current supportive medical care. IV antibiotics as ordered. Vasopressors for hemodynamic support. GI prophylactics. Additional plan as per the hospital course. Critical care time of 45 minutes provided to include time spent evaluation of patient at bedside, when appropriate patient/family education for diagnosis, treatment plan, review of pertinent medical information and discussion of care with specialty providers and PCP. Mechanical ventilator parameters, treatment and adjustments have personally been reviewed by me and treatment plan by rental boats caretaker has also been reviewed. Dietary Evaluation Review Comments: 1. Consider EN/TPN if NPO >7days 2. Continue plan of care Expected Outcomes/Goals: 1. Pt will meet >75% of estimated needs within 2-3 days Plan discussed with: Other RELL STEWART MD Sep 12, 2024 13:14
--- NOTE | 2024-09-12 16:48 | DVHPN2 ---
Progress Note Date Seen: Sep 12, 2024 Has the PT tested + for MRSA If YES, has PT been informed?: Yes Medical Necessity Reason Pt with a Central, PICC or Fol: Yes The following are medically ne: Betancourt Catheter Reason for betancourt catheter: Strict I&O Subjective Patient reports: Other (no new events) Review of Systems: Deferred Objective vital signs Vital Sign Date Time Temp Pulse Resp B/P (MAP) Pulse Ox O2 Delivery O2 Flow Rate FiO2 09/12/24 16:30 97.7 69 22 96/54 (68) 94 97.7 09/12/24 15:44 80 09/12/24 07:32 Mechanical Ventilator+ Total Intake and Output 09/11/24 09/11/24 09/12/24 15:00 23:00 07:00 Intake Total 576.508 ml 969.578 ml 2619.891 ml Output Total 450 ml 1100 ml Balance 576.508 ml 519.578 ml 1519.891 ml medications Current Medications Medications Dose Ordered Sig/Acacia Route Start Time Stop Time Status Last Admin Dose Admin Fentanyl Citrate 250 ml @ 2.5 mls/hr Q24H IV 09/02/24 15:45 09/12/24 12:15 25 MLS/HR Albuterol 2.5 mg Q4HWA PRN NEB 09/02/24 18:30 09/12/24 13:38 2.5 MG Ipratropium [place] 0.5 mg Q4HWA PRN NEB 09/02/24 18:30 09/12/24 13:38 0.5 MG Acetaminophen 650 mg Q4HP PRN GT 09/03/24 10:00 09/03/24 10:21 650 MG Norepinephrine Bitartrate 32 mg/ Sodium Chloride 250 ml @ 0.938 mls/ hr Q24H IV 09/03/24 12:30 09/11/24 03:15 2.813 MLS/HR Vasopressin 20 units/Sodium Chloride 100 ml @ 9 mls/hr Q11H7M IV 09/03/24 15:30 Pantoprazole Sodium 40 mg DAILY IV 09/04/24 10:00 09/12/24 07:54 40 MG Docusate Sodium 200 mg BID NG 09/06/24 22:00 09/12/24 07:54 200 MG Sennosides 17.2 mg HS PO 09/06/24 22:00 09/11/24 21:47 17.2 MG Ceftriaxone Sodium/Dextrose 50 ml @ 50 mls/hr DAILY IV 09/07/24 10:00 09/12/24 10:06 50 MLS/HR Acetylcysteine 200 mg Q8HR NEB 09/07/24 14:00 09/12/24 13:38 200 MG Atorvastatin Calcium 40 mg HS PO 09/07/24 22:00 09/11/24 21:47 40 MG Enoxaparin Sodium 30 mg DAILY SC 09/08/24 10:00 09/12/24 07:54 30 MG Lactulose 30 ml Q8HR PO 09/08/24 09:45 09/12/24 13:04 30 ML Propofol 100 ml @ 3.54 mls/hr Q24H IV 09/09/24 16:30 09/12/24 15:38 35.4 MLS/HR Hydrocortisone Sodium Succinate 100 mg DAILY IV 09/10/24 13:15 09/12/24 07:54 100 MG Enteral Nutritional Formula 1,000 ml 30ML/HR GT 09/10/24 13:15 Metoclopramide HCl 5 mg Q8HR IV 09/10/24 13:45 09/12/24 05:24 5 MG Midazolam HCl 50 ml @ 1 mls/hr Q24H IV 09/10/24 14:45 09/12/24 15:00 4 MLS/HR Linezolid 300 ml @ 150 mls/hr Q12HR IV 09/11/24 22:00 09/12/24 07:55 150 MLS/HR Furosemide 60 mg BIDD IV 09/11/24 19:30 09/12/24 05:24 60 MG Examination: GENERAL:Abnormal, LUNGS:Abnormal, MSK:Abnormal, SKIN:Normal, NEURO:Abnormal laboratory and microbiology Laboratory Tests 09/12/24 03:05 Test 09/12/24 03:05 Range/Units Serum Glucose 91 74-106 mg/dL Microbiology Date/Time Source Procedure Growth Status 09/11/24 14:35 Blood Blood Culture - Preliminary Resulted 09/11/24 00:00 Voided Urine Urine Culture - Preliminary Resulted 09/08/24 14:33 Bronchial Washings Gram Stain - Final Complete 09/08/24 14:33 Bronchial Washings Respiratory Culture - Final Complete 09/06/24 13:00 Vaginal Vaginal Culture - Final Enterococcus faecalis Methicillin Resistant S.aureus Complete 09/04/24 20:40 Nose MRSA Screen - Final Complete Problem List/Assessment/Plan Problem List/Assessment/Plan Acute kidney injury superimposed Chronic Kidney Disease secondary to hemodynamic etiology +/- tubular injury oliguric requiring initiation of hemodialysis Acute respiratory failure, patient intubated on ventilator CKD stage III Septic shock with multiorgan involvement history of PE Hyperkalemia Vancomycin toxicity recs Lasix IV b.i.d. next HD friday monitor for renal recovery Plan discussed with: Other My Orders My Orders Orders - NAILA IBARRA MD Procedure Category Date Status Time Furosemide Injection PHA 09/11/24 In Process (Lasix Injection) 19:30 Dietary Evaluation Review Comments: 1. Consider EN/TPN if NPO >7days 2. Continue plan of care Expected Outcomes/Goals: 1. Pt will meet >75% of estimated needs within 2-3 days NAILA IBARRA MD Sep 12, 2024 16:48
--- NOTE | 2024-09-12 23:01 | DVHPN2 ---
Progress Note - Dictate Date Seen: Sep 12, 2024 Has the PT tested + for MRSA If YES, has PT been informed?: Yes Medical Necessity Reason Pt with a Central, PICC or Fol: Yes The following are medically ne: Betancourt Catheter Reason for betancourt catheter: Strict I&O Subjective Patient seen and examined at bedside. Sedated, intubated on mechanical ventilator. Overnight events reviewed. vital signs Vital Sign Date Time Temp Pulse Resp B/P (MAP) Pulse Ox O2 Delivery O2 Flow Rate FiO2 09/12/24 22:45 74 22 113/65 (81) 97 09/12/24 22:20 80 09/12/24 20:00 Mechanical Ventilator+ 09/12/24 20:00 98.1 98.1 Total Intake and Output 09/11/24 09/11/24 09/12/24 15:00 23:00 07:00 Intake Total 576.508 ml 969.578 ml 2619.891 ml Output Total 450 ml 1100 ml Balance 576.508 ml 519.578 ml 1519.891 ml medications Current Medications Medications Dose Ordered Sig/Acacia Route Start Time Stop Time Status Last Admin Dose Admin Fentanyl Citrate 250 ml @ 2.5 mls/hr Q24H IV 09/02/24 15:45 09/12/24 21:57 25 MLS/HR Albuterol 2.5 mg Q4HWA PRN NEB 09/02/24 18:30 09/12/24 22:43 2.5 MG Ipratropium [place] 0.5 mg Q4HWA PRN NEB 09/02/24 18:30 09/12/24 22:43 0.5 MG Acetaminophen 650 mg Q4HP PRN GT 09/03/24 10:00 09/03/24 10:21 650 MG Norepinephrine Bitartrate 32 mg/ Sodium Chloride 250 ml @ 0.938 mls/ hr Q24H IV 09/03/24 12:30 09/12/24 16:00 1.875 MLS/HR Vasopressin 20 units/Sodium Chloride 100 ml @ 9 mls/hr Q11H7M IV 09/03/24 15:30 Pantoprazole Sodium 40 mg DAILY IV 09/04/24 10:00 09/12/24 07:54 40 MG Docusate Sodium 200 mg BID NG 09/06/24 22:00 09/12/24 21:42 200 MG Sennosides 17.2 mg HS PO 09/06/24 22:00 09/12/24 21:42 17.2 MG Ceftriaxone Sodium/Dextrose 50 ml @ 50 mls/hr DAILY IV 09/07/24 10:00 09/12/24 10:06 50 MLS/HR Acetylcysteine 200 mg Q8HR NEB 09/07/24 14:00 09/12/24 22:43 200 MG Atorvastatin Calcium 40 mg HS PO 09/07/24 22:00 09/12/24 21:42 40 MG Enoxaparin Sodium 30 mg DAILY SC 09/08/24 10:00 09/12/24 07:54 30 MG Lactulose 30 ml Q8HR PO 09/08/24 09:45 09/12/24 21:41 30 ML Propofol 100 ml @ 3.54 mls/hr Q24H IV 09/09/24 16:30 09/12/24 20:42 35.4 MLS/HR Hydrocortisone Sodium Succinate 100 mg DAILY IV 09/10/24 13:15 09/12/24 07:54 100 MG Enteral Nutritional Formula 1,000 ml 30ML/HR GT 09/10/24 13:15 Metoclopramide HCl 5 mg Q8HR IV 09/10/24 13:45 09/12/24 21:42 5 MG Midazolam HCl 50 ml @ 1 mls/hr Q24H IV 09/10/24 14:45 09/12/24 21:55 4 MLS/HR Linezolid 300 ml @ 150 mls/hr Q12HR IV 09/11/24 22:00 09/12/24 21:42 150 MLS/HR Furosemide 60 mg BIDD IV 09/11/24 19:30 09/12/24 16:52 60 MG objective Gen.: Patient lying in bed in medical ICU. Sedated, intubated on mechanical ventilator. Head: Normocephalic, atraumatic. Eyes: PERRLA. Ears: Normal external anatomy. Throat: Endotracheal tube and orogastric tube in place. Neck: Supple, trachea midline. Chest: Transmitted breath sounds bilaterally. Decreased air entry bilaterally. No wheezing. Bibasilar crackles. Cardio vascular: Positive S1, positive S2. Regular rate and rhythm. Abdomen: Positive bowel sounds in all 4 quadrants. Soft, nontender, nondistended. : Betancourt in place. Normal external genitalia. Rectal: Deferred Skin: Warm, dry. Intact. Extremities: 2+ radial pulses bilaterally. No lower extremity edema. Neuro: Sedated. laboratory and microbiology Laboratory Tests 09/12/24 03:05 Test 09/12/24 03:05 Range/Units Serum Glucose 91 74-106 mg/dL Assessment/Plan Impression: Acute on chronic hypoxic respiratory failure On mechanical ventilator Pulmonary edema Pleural effusion, left Atelectasis Leukocytosis Lactic acidosis Morbid obesity, BMI 40 Events: Remains on vent support On pressure control with a respiratory rate of 22, inspiratory pressure of 18, I-time of 0.9 seconds, PEEP of 8, FiO2 at 80%. Increased FiO2 requirements, up from 50%. Sedated on Fentanyl, Versed. On pressors for hemodynamic support Levophed 4 mcg/min Titrate to keep mean arterial pressure greater than 65 mmHg. Continue abx Tube feeds for nutritional support HD per Nephrology Plan for Friday. Taper FiO2 as tolerated. Continue antibiotics - Zyvox, Rocephin. Vancomycin stopped d/t kidney failure. Continue to monitor respiratory status closely. Poor prognosis due to multiorgan failure - renal, respiratory and liver failure. Labs and imaging reviewed. Rest of plan as noted below. Plan: s/p intubation on mechanical ventilator CXR image and report reviewed. Devices in place. Pulmonary edema. Small left pleural effusion. Atelectasis. ABG reviewed. Alkalemia due to respiratory alkalosis, hypoxemia PaO2 40.4 mmHg On pressure control with a respiratory rate of 22, inspiratory pressure of 18, I-time of 0.9 seconds, PEEP of 8, FiO2 at 80%. Titrate FIO2 to keep O2 saturation above 92%. VAP bundle Daily ABG and CXR while intubated. Sedate for ventilatory synchrony Bronchodilators Pressors as necessary for hemodynamic support. Titrate to keep MAP above 65 mmHg/SBP above 90 mmHg. Continue antibiotics. F/u cultures. Elevated WBC Monitor renal function Monitor ins/outs. Monitor electrolytes. Supplement as necessary. Monitor lactic acid On IVF Nutritional support. Accucheks, ISS. GI/DVT prophylaxis. Condition: Critical Prognosis: Poor given multiple comorbidities. Rest of plan per hospitalist and other consultants. A total of 35 minutes of critical care time was spent reviewing the patient record, examining the patient, making a diagnostic and therapeutic plan, discussing this plan with the medical personnel, following up on diagnostic studies and following the patient for clinical stability excluding any and all procedures. At least 50% of this time was spent in direct, [id number] contact. Thank you Dr. Banda for allowing me to participate in this patient's care. Further recommendations will depend on patient's clinical course. Please do not hesitate to contact me if you have any questions or concerns. This medical document was created using an electronic medical record system with [employer] dictation system. Although this document has been carefully reviewed, there may still be some phonetic and typographical errors. These areas are purely typographical due to imperfections of the software programs, and do not reflect any compromise in the patient's medical care. Dietary Evaluation Review Comments: 1. Consider EN/TPN if NPO >7days 2. Continue plan of care Expected Outcomes/Goals: 1. Pt will meet >75% of estimated needs within 2-3 days Plan discussed with: Other (DEIDRE Powers) Critical Care Time(min): 35 SHAI SINGH MD Sep 12, 2024 23:01
[2024-09-13] VITALS (114 sets, daily range): BP systolic 88–147; BP diastolic 48–77; PULSE 63–84; RESP 15–27; TEMP 98.1–98.9; O2SAT 80–100
[2024-09-13 03:56] LABS: Hematocrit 38.1 % (36.0-46.0); Mean Corpuscular Hemoglobin 29.7 pg (28.0-32.0); Mean Corpuscular Hgb Conc. 34.3 g/dL (32.0-36.0); Mean Corpuscular Volume 86.6 fL (80.0-100.0); Platelet Count (auto) 285 10^3/uL (140-450); Red Blood Cells 4.39 10^6/uL (4.0-5.20); Red Cell Distribution Width 13.4 % (11.8-14.3); White Blood Cell 27.4 10^3/uL (4.4-10.8)
[2024-09-13 04:11] LABS: Alanine Aminotransferase 37 U/L (7-40); Albumin 3.7 g/dL (3.2-4.8); Alkaline Phosphatase 113 U/L (46-116); Anion Gap 18 (5-15); BUN/Creatinine Ratio 31.7 (10.0-20.0); Calcium 9.7 mg/dL (8.7-10.4); Carbon Dioxide 23 mmol/L (20-31); Glucose 106 mg/dL (74-106)
[2024-09-13 04:12] LABS: Aspartate Aminotransferase 39 U/L (13-40); Bilirubin, Total 0.4 mg/dL (0.2-1.0); Total Protein 6.4 g/dL (5.7-8.2)
[2024-09-13 04:17] LABS: Basophils % (manual) 0 (0.0-2.0); Blast Cells 0; Eosinophils % (manual) 0 (0-7); Metamyelocytes % 0; Promyelocytes % 0; Reactive Lymphocytes 0
[2024-09-13 04:32] LABS: Blood Urea Nitrogen 88 mg/dL (9-23); Chloride 94 mmol/L (98-107); Potassium 3.2 mmol/L (3.5-5.1); Sodium 135 mmol/L (136-145)
--- NOTE | 2024-09-13 04:34 | DVH ---
CHEST RADIOGRAPH Indication: fu Technique: Single frontal view of the chest was obtained COMPARISON: XY CHEST PORTABLE on DOS: 09/12/24, XY CHEST XRAY 1 VIEW on DOS: 09/11/24, XY CHEST XRAY 1 VIEW on DOS: 09/10/24 FINDINGS: Lines and Tubes: Endotracheal tube, enteric catheter and right central venous catheter in satisfactor y position. Lungs: Bilateral lower lobe airspace disease. Pleura: No effusion. No pneumothorax. Cardiomediastinal contours: Unremarkable Bones: Unremarkable IMPRESSION: Lines and tubes in satisfactory position. No significant interval change.
[2024-09-13] MEDS: POTASSIUM CHL 20MEQ/100ML 100 ML IV ONE (06:02)
[2024-09-13 06:29] LABS: Band Neutrophils % (manual) 3; Lymphocytes % (manual) 4 (10.0-50.0); Monocytes % (manual) 2 (0-12); Myelocytes % 2
[2024-09-13 06:30] LABS: Platelet Estimate Adequate
[2024-09-13 07:16] LABS: Base Excess -2.7 mmol/L (-2.0-3.0)
--- NOTE | 2024-09-13 10:22 | DVHPN2 ---
Progress Note - Dictate Date Seen: Sep 13, 2024 Has the PT tested + for MRSA If YES, has PT been informed?: Yes Medical Necessity Reason Pt with a Central, PICC or Fol: Yes The following are medically ne: Betancourt Catheter Reason for betancourt catheter: Strict I&O Subjective UOP 4.9L overnight vital signs Vital Sign Date Time Temp Pulse Resp B/P (MAP) Pulse Ox O2 Delivery O2 Flow Rate FiO2 09/13/24 09:56 77 09/13/24 09:56 60 09/13/24 09:38 22 95/51 (66) 98 09/13/24 07:41 Mechanical Ventilator+ 09/13/24 04:00 98.9 98.9 Total Intake and Output 09/12/24 09/12/24 09/13/24 14:59 22:59 06:59 Intake Total 880.200 ml 880.200 ml 776.453 ml Output Total 2100 ml 2800 ml Balance 880.200 ml -1219.800 ml -2023.547 ml medications Current Medications Medications Dose Ordered Sig/Acacia Route Start Time Stop Time Status Last Admin Dose Admin Fentanyl Citrate 250 ml @ 2.5 mls/hr Q24H IV 09/02/24 15:45 09/13/24 08:04 25 MLS/HR Albuterol 2.5 mg Q4HWA PRN NEB 09/02/24 18:30 09/13/24 06:31 2.5 MG Ipratropium [place] 0.5 mg Q4HWA PRN NEB 09/02/24 18:30 09/13/24 06:30 0.5 MG Acetaminophen 650 mg Q4HP PRN GT 09/03/24 10:00 09/03/24 10:21 650 MG Norepinephrine Bitartrate 32 mg/ Sodium Chloride 250 ml @ 0.938 mls/ hr Q24H IV 09/03/24 12:30 09/12/24 16:00 1.875 MLS/HR Vasopressin 20 units/Sodium Chloride 100 ml @ 9 mls/hr Q11H7M IV 09/03/24 15:30 Pantoprazole Sodium 40 mg DAILY IV 09/04/24 10:00 09/13/24 07:58 40 MG Docusate Sodium 200 mg BID NG 09/06/24 22:00 09/13/24 07:59 200 MG Sennosides 17.2 mg HS PO 09/06/24 22:00 09/12/24 21:42 17.2 MG Ceftriaxone Sodium/Dextrose 50 ml @ 50 mls/hr DAILY IV 09/07/24 10:00 09/13/24 07:59 50 MLS/HR Acetylcysteine 200 mg Q8HR NEB 09/07/24 14:00 09/13/24 06:31 200 MG Atorvastatin Calcium 40 mg HS PO 09/07/24 22:00 09/12/24 21:42 40 MG Enoxaparin Sodium 30 mg DAILY SC 09/08/24 10:00 09/13/24 07:59 30 MG Lactulose 30 ml Q8HR PO 09/08/24 09:45 09/13/24 05:27 30 ML Propofol 100 ml @ 3.54 mls/hr Q24H IV 09/09/24 16:30 09/13/24 08:51 35.4 MLS/HR Hydrocortisone Sodium Succinate 100 mg DAILY IV 09/10/24 13:15 09/13/24 07:59 100 MG Enteral Nutritional Formula 1,000 ml 30ML/HR GT 09/10/24 13:15 Metoclopramide HCl 5 mg Q8HR IV 09/10/24 13:45 09/13/24 05:27 5 MG Midazolam HCl 50 ml @ 1 mls/hr Q24H IV 09/10/24 14:45 09/13/24 08:50 4 MLS/HR Linezolid 300 ml @ 150 mls/hr Q12HR IV 09/11/24 22:00 09/13/24 07:59 150 MLS/HR Furosemide 60 mg BIDD IV 09/11/24 19:30 09/13/24 05:55 60 MG objective elderly female intubated no ankle edema laboratory and microbiology Laboratory Tests 09/13/24 03:00 Test 09/13/24 03:00 Range/Units Serum Glucose 106 74-106 mg/dL Assessment/Plan Acute kidney injury superimposed Chronic Kidney Disease secondary to hemodynamic etiology +/- tubular injury oliguric requiring initiation of hemodialysis Acute respiratory failure, patient intubated on ventilator CKD stage III Septic shock with multiorgan involvement history of PE Hypokakalemia Vancomycin toxicity Lasix IV b.i.d. reduce dose NO hd GIVEN improved urinary volume. replace electrolytes and monitor for recovery monitor for renal recovery Dietary Evaluation Review Comments: 1. Consider EN/TPN if NPO >7days 2. Continue plan of care Expected Outcomes/Goals: 1. Pt will meet >75% of estimated needs within 2-3 days Plan discussed with: Other Critical Care Time(min): 34 GUCCI ASHBY MD Sep 13, 2024 10:22
--- NOTE | 2024-09-13 11:49 | DVHPN2 ---
Progress Note - Dictate Date Seen: Sep 13, 2024 Has the PT tested + for MRSA If YES, has PT been informed?: Yes Medical Necessity Reason Pt with a Central, PICC or Fol: Yes The following are medically ne: Betancourt Catheter Reason for betancourt catheter: Strict I&O Subjective Patient is sedated and intubated on mechanical ventilation. REPORT POTASSIUM OF 3.2 AND BUN OF 88 WITH DIALYSIS PENDING FOR TODAY. White count trending up, currently at 27.4 Patient is stable. Patient has been npo for possible procedure (peg tube placement). Linezolid started 09/11- 09/11 chest x-ray : There are low lung volumes. The heart is prominent size. Small bilateral pleural effusions, left greater than right with bibasilar atelectasis. No pneumothorax. Support lines and tubes appear unchanged in position. 09/04 : gall bladder US reviewed Chest US showed no evidence for right or left pleural effusion on the provided images. 09/11 : blood cultures : show Gram Positive Cocci in clusters vital signs Vital Sign Date Time Temp Pulse Resp B/P (MAP) Pulse Ox O2 Delivery O2 Flow Rate FiO2 09/13/24 11:38 77 09/13/24 11:38 60 09/13/24 09:38 22 95/51 (66) 98 09/13/24 07:41 Mechanical Ventilator+ 09/13/24 04:00 98.9 98.9 Total Intake and Output 09/12/24 09/12/24 09/13/24 15:00 23:00 07:00 Intake Total 880.200 ml 1030.200 ml 625.516 ml Output Total 2100 ml 2800 ml Balance 880.200 ml -1069.800 ml -2174.484 ml medications Current Medications Medications Dose Ordered Sig/Acacia Route Start Time Stop Time Status Last Admin Dose Admin Fentanyl Citrate 250 ml @ 2.5 mls/hr Q24H IV 09/02/24 15:45 09/13/24 08:04 25 MLS/HR Albuterol 2.5 mg Q4HWA PRN NEB 09/02/24 18:30 09/13/24 06:31 2.5 MG Ipratropium [place] 0.5 mg Q4HWA PRN NEB 09/02/24 18:30 09/13/24 06:30 0.5 MG Acetaminophen 650 mg Q4HP PRN GT 09/03/24 10:00 09/03/24 10:21 650 MG Norepinephrine Bitartrate 32 mg/ Sodium Chloride 250 ml @ 0.938 mls/ hr Q24H IV 09/03/24 12:30 09/12/24 16:00 1.875 MLS/HR Vasopressin 20 units/Sodium Chloride 100 ml @ 9 mls/hr Q11H7M IV 09/03/24 15:30 Pantoprazole Sodium 40 mg DAILY IV 09/04/24 10:00 09/13/24 07:58 40 MG Docusate Sodium 200 mg BID NG 09/06/24 22:00 09/13/24 07:59 200 MG Sennosides 17.2 mg HS PO 09/06/24 22:00 09/12/24 21:42 17.2 MG Ceftriaxone Sodium/Dextrose 50 ml @ 50 mls/hr DAILY IV 09/07/24 10:00 09/13/24 07:59 50 MLS/HR Acetylcysteine 200 mg Q8HR NEB 09/07/24 14:00 09/13/24 06:31 200 MG Atorvastatin Calcium 40 mg HS PO 09/07/24 22:00 09/12/24 21:42 40 MG Enoxaparin Sodium 30 mg DAILY SC 09/08/24 10:00 09/13/24 07:59 30 MG Lactulose 30 ml Q8HR PO 09/08/24 09:45 09/13/24 05:27 30 ML Propofol 100 ml @ 3.54 mls/hr Q24H IV 09/09/24 16:30 09/13/24 08:51 35.4 MLS/HR Hydrocortisone Sodium Succinate 100 mg DAILY IV 09/10/24 13:15 09/13/24 07:59 100 MG Enteral Nutritional Formula 1,000 ml 30ML/HR GT 09/10/24 13:15 Metoclopramide HCl 5 mg Q8HR IV 09/10/24 13:45 09/13/24 05:27 5 MG Midazolam HCl 50 ml @ 1 mls/hr Q24H IV 09/10/24 14:45 09/13/24 08:50 4 MLS/HR Linezolid 300 ml @ 150 mls/hr Q12HR IV 09/11/24 22:00 09/13/24 07:59 150 MLS/HR Furosemide 40 mg BIDD IV 09/13/24 18:00 objective General intubated and sedated HEENT: Atraumatic,intubated Neck: No swelling Lungs: Equal air entry and clear to auscultation Cardiovascular: S1 S2 heard no murmur Abdomen: Soft nontender, no organomegaly, nondistended Neuro: sedated, unable to assess Psych: unable to assess laboratory and microbiology Laboratory Tests 09/13/24 03:00 Test 09/13/24 03:00 Range/Units Serum Glucose 106 74-106 mg/dL Assessment/Plan Patient is a 63-year-old female presented to the hospital with: Staphylococcus aureus pneumonia ( MRSA) Streptococcus Pneumoniae pneumonia Septic shock resolving bacteremia : coag neg staphylococccus Acute Respiratory Failure [requiring mechanical ventilation] severe hypoxia Metabolic acidosis FEDE Morbidly obese BMI = 40 PE history Recommendations: vancomycin was on hold, trough/ random level was in range > 15 hence therapeutic for MRSA pneumonia; FIp2 is trending down from earlier few days ago which was 80% to now 40% patient is started on hydrocortisone from 09/10; hence leucocytosis posisbly related to steroids. discussed with pharmacy, to restarted Vancomycin Ceftriaxone is given today WBC trending up, likely reactive due to steroids ( baseline high) on pressors, if pressors requirement worsens, recommend repeat CT abdomen and pelvis with contrast, last scan was on 09/03 s/p bronch: follow new cultures from BAL Pulmonary on board for vent management Blood culture:co ag neg staph, i think its contaminated. Recent on 09/07 showed no growth 09/11 : show Gram Positive Cocci in clusters Sputum culture: Positive for Staphylococcus aureus. nephrology is on board s.p HD Vaginal culture: Positive MRSA/ E feacalis full code prognosis very poor crit time 35 mins spent during the encounter. Thank you for consult and for giving an opportunity to take care of this patient. Dietary Evaluation Review Comments: 1. Consider EN/TPN if NPO >7days 2. Continue plan of care Expected Outcomes/Goals: 1. Pt will meet >75% of estimated needs within 2-3 days ANGELLA REYES MD Sep 13, 2024 11:49
[2024-09-13] MEDS: LACTULOSE 20Gm/30ML SOLN PO SCH (14:54)
--- NOTE | 2024-09-13 17:30 | DVHPN2 ---
Progress Note - Dictate Date Seen: Sep 13, 2024 Has the PT tested + for MRSA If YES, has PT been informed?: Yes Medical Necessity Reason Pt with a Central, PICC or Fol: Yes The following are medically ne: Betancourt Catheter Reason for betancourt catheter: Strict I&O Subjective Patient was seen and evaluated in follow up in the ICU. Patient is intubated and sedated on ventilator. FiO2 100%. UOP 4.9L overnight. WBC 27.4, K 3.2, BUN 88, STRATE[employer]ATE 2.78. Patients electrolytes were replaced. Patients blood cultures are growing Gram Positive Cocci in clusters. vital signs Vital Sign Date Time Temp Pulse Resp B/P (MAP) Pulse Ox O2 Delivery O2 Flow Rate FiO2 09/13/24 16:18 64 22 93/53 (66) 94 100 09/13/24 12:00 98.3 98.3 09/13/24 07:41 Mechanical Ventilator+ Total Intake and Output 09/12/24 09/12/24 09/13/24 15:00 23:00 07:00 Intake Total 880.200 ml 1030.200 ml 625.516 ml Output Total 2100 ml 2800 ml Balance 880.200 ml -1069.800 ml -2174.484 ml medications Current Medications Medications Dose Ordered Sig/Acacia Route Start Time Stop Time Status Last Admin Dose Admin Fentanyl Citrate 250 ml @ 2.5 mls/hr Q24H IV 09/02/24 15:45 09/13/24 08:04 25 MLS/HR Albuterol 2.5 mg Q4HWA PRN NEB 09/02/24 18:30 09/13/24 13:27 2.5 MG Ipratropium [place] 0.5 mg Q4HWA PRN NEB 09/02/24 18:30 09/13/24 13:27 0.5 MG Acetaminophen 650 mg Q4HP PRN GT 09/03/24 10:00 09/03/24 10:21 650 MG Norepinephrine Bitartrate 32 mg/ Sodium Chloride 250 ml @ 0.938 mls/ hr Q24H IV 09/03/24 12:30 09/12/24 16:00 1.875 MLS/HR Vasopressin 20 units/Sodium Chloride 100 ml @ 9 mls/hr Q11H7M IV 09/03/24 15:30 Pantoprazole Sodium 40 mg DAILY IV 09/04/24 10:00 09/13/24 07:58 40 MG Docusate Sodium 200 mg BID NG 09/06/24 22:00 09/13/24 07:59 200 MG Sennosides 17.2 mg HS PO 09/06/24 22:00 09/12/24 21:42 17.2 MG Acetylcysteine 200 mg Q8HR NEB 09/07/24 14:00 09/13/24 13:27 200 MG Atorvastatin Calcium 40 mg HS PO 09/07/24 22:00 09/12/24 21:42 40 MG Enoxaparin Sodium 30 mg DAILY SC 09/08/24 10:00 09/13/24 07:59 30 MG Propofol 100 ml @ 3.54 mls/hr Q24H IV 09/09/24 16:30 09/13/24 13:24 35.4 MLS/HR Enteral Nutritional Formula 1,000 ml 30ML/HR GT 09/10/24 13:15 Metoclopramide HCl 5 mg Q8HR IV 09/10/24 13:45 09/13/24 14:00 5 MG Midazolam HCl 50 ml @ 1 mls/hr Q24H IV 09/10/24 14:45 09/13/24 08:50 4 MLS/HR Linezolid 300 ml @ 150 mls/hr Q12HR IV 09/11/24 22:00 09/13/24 07:59 150 MLS/HR Furosemide 40 mg BIDD IV 09/13/24 18:00 Lactulose 30 ml Q4HR PO 09/13/24 14:00 09/13/24 14:54 30 ML Ceftriaxone Sodium/Dextrose 50 ml @ 50 mls/hr DAILY IV 09/14/24 10:00 objective GENERAL: Intubated on ventilator. Morbidly obese LUNGS: Decreased breath sounds. CARDIOVASCULAR: Heart sounds are good. ABDOMEN: Soft. Morbid pannus limited physical palpation. SKIN: Multiple scars to abdomen. Two open areas on abdomen with oozing wounds. laboratory and microbiology Laboratory Tests 09/13/24 03:00 Test 09/13/24 03:00 Range/Units Serum Glucose 106 74-106 mg/dL Problem List Septic shock. Acute on chronic respiratory failure. NSTEMI type II secondary to above. Rule out structural heart disease. Prolonged QT interval. Morbid obesity, Class 3. Assessment/Plan Continued all current supportive medical care. IV antibiotics as ordered. Vasopressors for hemodynamic support. GI prophylactics. Additional plan as per the hospital course. Critical care time of 45 minutes provided to include time spent evaluation of patient at bedside, when appropriate patient/family education for diagnosis, treatment plan, review of pertinent medical information and discussion of care with specialty providers and PCP. Mechanical ventilator parameters, treatment and adjustments have personally been reviewed by me and treatment plan by link trainer teacher has also been reviewed. Dietary Evaluation Review Comments: 1. Consider EN/TPN if NPO >7days 2. Continue plan of care Expected Outcomes/Goals: 1. Pt will meet >75% of estimated needs within 2-3 days Plan discussed with: Other RELL STEWART MD Sep 13, 2024 17:30
[2024-09-13] MEDS: LIDOCAINE 1% (LOCAL ANESTH.) PF 5ml SDV ID ONE (17:33)
[2024-09-13] MEDS: FUROSEMIDE 100 MG/10ML VIAL IV SCH (18:30)
--- NOTE | 2024-09-13 21:44 | DVHPNRES ---
Progress Note Date Seen: Sep 14, 2024 Resident Creating Document: DAVID RIDLDE YENNI Has the PT tested + for MRSA If YES, has PT been informed?: Yes Medical Necessity Reason Pt with a Central, PICC or Fol: Yes The following are medically ne: Betancourt Catheter Reason for betancourt catheter: Strict I&O Subjective Review of Systems Patient seen examined at the bedside. Patient is sedated and on mechanical ventilation. Review of system could not obtain. Chest x-ray shows bilateral basal infiltration mild improvement in compared to previous x-ray. We will patient requiring refer the oxygen has increased from 55% to 70%. May perform CT scan tomorrow. Patient reports: Feels worse Changes from previous H/P or p: Changes Objective vital signs Vital Sign Date Time Temp Pulse Resp B/P (MAP) Pulse Ox O2 Delivery O2 Flow Rate FiO2 09/13/24 21:01 93/56 09/13/24 20:26 73 22 100 100 09/13/24 18:45 98.8 98.8 09/13/24 07:41 Mechanical Ventilator+ Total Intake and Output 09/12/24 09/12/24 09/13/24 15:00 23:00 07:00 Intake Total 880.200 ml 1030.200 ml 625.516 ml Output Total 2100 ml 2800 ml Balance 880.200 ml -1069.800 ml -2174.484 ml medications Current Medications Medications Dose Ordered Sig/Acacia Route Start Time Stop Time Status Last Admin Dose Admin Albuterol 2.5 mg Q4HWA PRN NEB 09/02/24 18:30 09/13/24 18:36 2.5 MG Ipratropium [place] 0.5 mg Q4HWA PRN NEB 09/02/24 18:30 09/13/24 18:36 0.5 MG Acetaminophen 650 mg Q4HP PRN GT 09/03/24 10:00 09/03/24 10:21 650 MG Norepinephrine Bitartrate 32 mg/ Sodium Chloride 250 ml @ 0.938 mls/ hr Q24H IV 09/03/24 12:30 09/13/24 20:42 1.875 MLS/HR Vasopressin 20 units/Sodium Chloride 100 ml @ 9 mls/hr Q11H7M IV 09/03/24 15:30 Pantoprazole Sodium 40 mg DAILY IV 09/04/24 10:00 09/13/24 07:58 40 MG Docusate Sodium 200 mg BID NG 09/06/24 22:00 09/13/24 07:59 200 MG Sennosides 17.2 mg HS PO 09/06/24 22:00 09/12/24 21:42 17.2 MG Acetylcysteine 200 mg Q8HR NEB 09/07/24 14:00 09/13/24 18:37 200 MG Atorvastatin Calcium 40 mg HS PO 09/07/24 22:00 09/12/24 21:42 40 MG Enoxaparin Sodium 30 mg DAILY SC 09/08/24 10:00 09/13/24 07:59 30 MG Propofol 100 ml @ 3.54 mls/hr Q24H IV 09/09/24 16:30 09/13/24 21:01 35.4 MLS/HR Enteral Nutritional Formula 1,000 ml 30ML/HR GT 09/10/24 13:15 Metoclopramide HCl 5 mg Q8HR IV 09/10/24 13:45 09/13/24 14:00 5 MG Midazolam HCl 50 ml @ 1 mls/hr Q24H IV 09/10/24 14:45 09/13/24 20:43 4 MLS/HR Linezolid 300 ml @ 150 mls/hr Q12HR IV 09/11/24 22:00 09/13/24 07:59 150 MLS/HR Furosemide 40 mg BIDD IV 09/13/24 18:00 09/13/24 18:30 40 MG Lactulose 30 ml Q4HR PO 09/13/24 14:00 09/13/24 18:31 30 ML Ceftriaxone Sodium/Dextrose 50 ml @ 50 mls/hr DAILY IV 09/14/24 10:00 Sodium Chloride 10 ml QSHIFT@10,22 IV 09/13/24 22:00 Examination General: RASS -5 afebrile, mucosae are moist Cardiovascular: Normal S1 and S2. No murmurs, gallops or rubs Respiratory: Mechanically assisted ventilation, equal bilateral airway entree. Clear lung sounds on auscultation Abdomen: Soft, nontender, no organomegaly, normal bowel sounds MSK/skin: Mobilization of limbs cannot be evaluated. Skin is dry and warm. T race bilateral pedal edema Neurological: Orientation cannot be assessed. No apparent motor no sensitive deficits. Pupils are isocoric and reactive laboratory and microbiology Laboratory Tests 09/13/24 03:00 Test 09/13/24 03:00 Range/Units Serum Glucose 106 74-106 mg/dL Microbiology Date/Time Source Procedure Growth Status 09/11/24 14:35 Blood Blood Culture - Preliminary Resulted 09/11/24 00:00 Voided Urine Urine Culture - Final Complete 09/08/24 14:33 Bronchial Washings Gram Stain - Final Complete 09/08/24 14:33 Bronchial Washings Respiratory Culture - Final Complete 09/06/24 13:00 Vaginal Vaginal Culture - Final Enterococcus faecalis Methicillin Resistant S.aureus Complete 09/04/24 20:40 Nose MRSA Screen - Final Complete Labs and/or images reviewed: Labs reviewed by me, Image(s) reviewed by me Problem List/Assessment/Plan Problem List/Assessment/Plan NEURO: Acute metabolic encephalopathy likely due to septic shock Patient is sedated and on mechanical ventilation with RASS score -5 CARDIOVASCULAR: NSTEMI type 2 likely due to septic shock Cardiology on the board, recommended conservative management Echocardiogram shows mild LVH with mild LV diastolic dysfunction with ejection fraction of 65 PULMONARY: Patient is sedated and on mechanical ventilation with pressure control mode with PEEP 8, respiratory rate 22, FiO2 70% Acute Hypoxic respiratory failure, likely due to pneumonia Septic shock likely due to pneumonia Pneumonia due to MRSA Bronchoscopy performed on 09/07 shows lots of secretion on the left main bronchus, bronchial lavage results shows MRSA Bronchoscopy was repeated on 09/08, shows less mucus secretion in compared to previous bronchoscopy Blood culture from 09/02/2024 shows staph hominis sensitive to vancomycin Sputum culture from 09/02/2024 shows MRSA, Streptococcus pneumoniae vancomycin Influenza and COVID-19 screening negative Continue N-acetylcysteine Continue breathing treatment Increased dose of ceftriaxone from 1 g to 2 g daily on 09/13 Continue linezolid, started on 09/11 Discontinue hydrocortisone If patient condition did not improved, may consider chest CT scan tomorrow Breathing treatment q.4 hours as needed GI: Abdominal ventral hernias, abdominal CT scan shows multiple ventral wall hernias containing fat and bowel with mild dilatation of proximal jejunum loops with jejunal loops course into the abdominal hernia Possible bowel obstruction, surgery consulted, recommended conservative management, suggested that small bowel series could not perform at the moment due to respiratory status of the patient Transaminitis, likely ischemic secondary to septic shock Bowel regimen: Increased lactulose to 30 mL q.4 hours and continue docusate and sennosides Continue metoclopramide 10 mg t.i.d. GI ppx: Protonix RENAL: FEDE , likely hemodynamically mediated Nephrology on the board, last HD session on 09/10 Recommended Lasix 40 mg b.i.d. Possible rhabdomyolysis, likely due to immobilization Creatinine kinase is raised at 8215, downtrending Monitoring ENDOCRINE: Hypertriglyceridemia, TG 623 Continue Atorvastatin 40 mg ID: Sputum cultures from 09/02/2024 shows MRSA, Streptococcus pneumoniae Blood culture from 09/02/2024 shows Staph hominis Results from bronchial washing, from 09/07/2024 shows no growth after 24 hours ID on the board, suggested that the culture results are probably due to contamination and recommended to repeat the culture Repeat blood culture Possible PID Patient has purulent vaginal discharge Vaginal bacterial culture, shows coagulase-negative Staphylococcus with few growth of possible Enterococcus species Metabolic: Hyperkalemia, improved Hyponatremia, improved Hypokalemia, supplemented LINES/DRAINS/ACCESS: ETT, intubated on 09/02/2024 IV access Hemodialysis catheter on the right subclavian vein, placed on 09/05/2024 Right internal jugular when CVC, placed on 09/03/2024 and removed on 09/13 Left upper arm PICC line, placed on 09/13 Drips: Versed 5 Fentanyl to 50 Levophed 2 DVT ppx: Lovenox DIET: Jevity 30 mL/hour CODE STATUS: Full code Patient's status was updated with the patient's daughter on the phone. Critical time spent more than 82 minutes, including patient care, chart review and updating the family. excluding any procedures. Case discussed with Dr. Pinon Plan discussed with: Patient, Daughter, Other (RN) My Orders My Orders Orders - DAVID RIDDLE RESDIRAYMOND Procedure Category Date Status Time Complete Blood Count LAB 09/14/24 Verified 04:00 Comprehensive LAB 09/14/24 Verified Metabolic Panel 04:00 Chest Xray 1 View XY 09/14/24 Logged 04:00 Abg W/ Co-Ox RT 09/14/24 Logged 04:00 Dietary Evaluation Review Comments: 1. Consider EN/TPN if NPO >7days 2. Continue plan of care Expected Outcomes/Goals: 1. Pt will meet >75% of estimated needs within 2-3 days Date of Service: Sep 13, 2024 Billing Provider: DANE PINON MD Common Visit Codes: 82778-[id number] CARE 30-74 MIN, 73572-[id number] CARE-EACH +30MIN DAVID RIDDLE RESDIRAYMOND Sep 13, 2024 21:43 DANE PINON MD Sep 14, 2024 11:18
[2024-09-13] MEDS: SODIUM CHLOR 0.9% PF (SALINE LOCK) 10ML VIAL/SYR IV SCH (22:00)
[2024-09-14] VITALS (110 sets, daily range): BP systolic 87–127; BP diastolic 49–80; PULSE 70–103; RESP 18–39; TEMP 97.8–99.2; O2SAT 91–100
[2024-09-14 04:16] LABS: Hematocrit 37.2 % (36.0-46.0); Hemoglobin 12.6 g/dL (12.2-16.2); Mean Corpuscular Hemoglobin 29.7 pg (28.0-32.0); Mean Corpuscular Hgb Conc. 33.9 g/dL (32.0-36.0); Mean Corpuscular Volume 87.7 fL (80.0-100.0); Platelet Count (auto) 281 10^3/uL (140-450); Red Blood Cells 4.24 10^6/uL (4.0-5.20); Red Cell Distribution Width 13.6 % (11.8-14.3); White Blood Cell 23.8 10^3/uL (4.4-10.8)
[2024-09-14 04:31] LABS: Alanine Aminotransferase 38 U/L (7-40); Alkaline Phosphatase 107 U/L (46-116); Anion Gap 19 (5-15); BUN/Creatinine Ratio 36.1 (10.0-20.0); Calcium 9.7 mg/dL (8.7-10.4); Carbon Dioxide 23 mmol/L (20-31); Chloride 95 mmol/L (98-107); Glucose 89 mg/dL (74-106); Sodium 137 mmol/L (136-145)
[2024-09-14 04:32] LABS: Albumin 3.8 g/dL (3.2-4.8); Aspartate Aminotransferase 37 U/L (13-40); Bilirubin, Total 0.5 mg/dL (0.2-1.0); Total Protein 6.6 g/dL (5.7-8.2)
--- NOTE | 2024-09-14 04:35 | DVH ---
Exam: US US GUIDED VASCULAR ACCESS Clinical History: PICC line placement Comparison: None Findings: Targeted sonographic evaluation of the left armwas obtained utilizing grayscale and color Doppler mars ging. IMPRESSION: Sonographic assistance for central line placement. Please refer to procedural report for detailed fin dings.
--- NOTE | 2024-09-14 04:36 | DVH ---
CHEST RADIOGRAPH Indication: Pneumonia Technique: Single frontal view of the chest was obtained COMPARISON: XY CHEST PORTABLE on DOS: 09/13/24, XY CHEST PORTABLE on DOS: 09/12/24, XY CHEST XRAY 1 VIE W on DOS: 09/11/24, XY CHEST PORTABLE on DOS: 09/13/24 FINDINGS: Lines and Tubes: Left PICC, Endotracheal tube, enteric catheter and right central venous catheters in satisfactory position. Lungs: Bilateral lower lobe airspace disease. Pleura: No effusion. No pneumothorax. Cardiomediastinal contours: Unremarkable Bones: Unremarkable IMPRESSION: Lines and tubes in satisfactory position. No significant interval change.
[2024-09-14 04:37] LABS: Basophils % (manual) 0 (0.0-2.0); Blast Cells 0; Metamyelocytes % 0; Promyelocytes % 0; Reactive Lymphocytes 0
[2024-09-14 04:52] LABS: Blood Urea Nitrogen 84 mg/dL (9-23)
[2024-09-14 06:01] LABS: Band Neutrophils % (manual) 2; Eosinophils % (manual) 3 (0-7); Lymphocytes % (manual) 2 (10.0-50.0); Monocytes % (manual) 4 (0-12); Myelocytes % 1; Platelet Estimate Adequate
[2024-09-14] MEDS: POTASSIUM CHL 20MEQ/100ML 100 ML IV SCH (06:37)
[2024-09-14] MEDS: METOCLOPRAMIDE HCL 5MG/ml INJ 2ml VIAL IV SCH ×2 (06:45→14:02)
[2024-09-14 07:16] LABS: Base Excess -2.1 mmol/L (-2.0-3.0)
[2024-09-14] MEDS: cefTRIAXone 2GM/50ML D5W 50 ML IV SCH (09:58)
--- NOTE | 2024-09-14 10:14 | DVHPN2 ---
Progress Note - Dictate Date Seen: Sep 14, 2024 Has the PT tested + for MRSA If YES, has PT been informed?: Yes Medical Necessity Reason Pt with a Central, PICC or Fol: Yes The following are medically ne: Betancourt Catheter Reason for betancourt catheter: Strict I&O Subjective She is sedated and intubated on mechanical ventilation. Chest x-ray shows Lines and tubes in satisfactory position. No significant interval change. White count trending down currently at 23.8 Patient is stable. Patient has been npo for possible procedure (peg tube placement). Cefepime 09/02- 09/06 Meropenem 09/03-09/05 Ceftriaxone 09/07-ongoing Vancomycin 09/03- 09/11 Linezolid 09/11- ongoing 09/11 chest x-ray : There are low lung volumes. The heart is prominent size. Small bilateral pleural effusions, left greater than right with bibasilar atelectasis. No pneumothorax. Support lines and tubes appear unchanged in position. 09/04 : gall bladder US reviewed Chest US showed no evidence for right or left pleural effusion on the provided images. 09/11 : blood cultures : show Gram Positive Cocci in clusters vital signs Vital Sign Date Time Temp Pulse Resp B/P (MAP) Pulse Ox O2 Delivery O2 Flow Rate FiO2 09/14/24 08:39 81 22 110/62 (78) 97 55 09/14/24 04:00 98.6 98.6 09/13/24 20:00 Mechanical Ventilator+ Total Intake and Output 09/13/24 09/13/24 09/14/24 15:00 23:00 07:00 Intake Total 824.327 ml 744.800 ml 662.925 ml Output Total 1300 ml 2000 ml Balance 824.327 ml -555.200 ml -1337.075 ml medications Current Medications Medications Dose Ordered Sig/Acacia Route Start Time Stop Time Status Last Admin Dose Admin Albuterol 2.5 mg Q4HWA PRN NEB 09/02/24 18:30 09/14/24 06:40 2.5 MG Ipratropium [place] 0.5 mg Q4HWA PRN NEB 09/02/24 18:30 09/14/24 06:40 0.5 MG Acetaminophen 650 mg Q4HP PRN GT 09/03/24 10:00 09/03/24 10:21 650 MG Norepinephrine Bitartrate 32 mg/ Sodium Chloride 250 ml @ 0.938 mls/ hr Q24H IV 09/03/24 12:30 09/13/24 20:42 1.875 MLS/HR Vasopressin 20 units/Sodium Chloride 100 ml @ 9 mls/hr Q11H7M IV 09/03/24 15:30 Pantoprazole Sodium 40 mg DAILY IV 09/04/24 10:00 09/13/24 07:58 40 MG Docusate Sodium 200 mg BID NG 09/06/24 22:00 09/13/24 21:45 200 MG Sennosides 17.2 mg HS PO 09/06/24 22:00 09/13/24 21:45 17.2 MG Acetylcysteine 200 mg Q8HR NEB 09/07/24 14:00 09/14/24 06:40 200 MG Atorvastatin Calcium 40 mg HS PO 09/07/24 22:00 09/13/24 21:45 40 MG Enoxaparin Sodium 30 mg DAILY SC 09/08/24 10:00 09/13/24 07:59 30 MG Propofol 100 ml @ 3.54 mls/hr Q24H IV 09/09/24 16:30 09/14/24 07:33 35.4 MLS/HR Enteral Nutritional Formula 1,000 ml 30ML/HR GT 09/10/24 13:15 Midazolam HCl 50 ml @ 1 mls/hr Q24H IV 09/10/24 14:45 09/14/24 04:02 4 MLS/HR Linezolid 300 ml @ 150 mls/hr Q12HR IV 09/11/24 22:00 09/13/24 21:45 150 MLS/HR Furosemide 40 mg BIDD IV 09/13/24 18:00 09/13/24 18:30 40 MG Lactulose 30 ml Q4HR PO 09/13/24 14:00 09/14/24 05:33 30 ML Ceftriaxone Sodium/Dextrose 50 ml @ 50 mls/hr DAILY IV 09/14/24 10:00 Sodium Chloride 10 ml QSHIFT@10,22 IV 09/13/24 22:00 09/13/24 22:00 10 ML Potassium Chloride 100 ml @ 50 mls/hr Q2H IV 09/14/24 06:15 12/3/24 12:14 09/14/24 09:02 50 MLS/HR Metoclopramide HCl 5 mg Q8HR IV 09/14/24 06:45 Fentanyl Citrate 250 ml @ 2.5 mls/hr Q24H IV 09/14/24 07:30 objective General intubated and sedated HEENT: Atraumatic,intubated Neck: No swelling Lungs: Equal air entry and clear to auscultation Cardiovascular: S1 S2 heard no murmur Abdomen: Soft nontender, no organomegaly, nondistended Neuro: sedated, unable to assess Psych: unable to assess laboratory and microbiology Laboratory Tests 09/14/24 03:37 Test 09/14/24 03:37 Range/Units Serum Glucose 89 74-106 mg/dL Assessment/Plan Patient is a 63-year-old female presented to the hospital with: Staphylococcus aureus pneumonia ( MRSA) Streptococcus Pneumoniae pneumonia Septic shock resolving bacteremia : coag neg staphylococccus Acute Respiratory Failure [requiring mechanical ventilation] severe hypoxia Metabolic acidosis FEDE Morbidly obese BMI = 40 PE history Recommendations: antibiotics review Cefepime 09/02- 09/06 Meropenem 09/03-09/05 Ceftriaxone 09/07-ongoing Vancomycin 09/03- 09/11 Linezolid 09/11- ongoing overall, patient has received rx for MRSA pneumonia from 09/03 until now. total 12 days, plan to dc antibiotics in 2 days respiratory status is stable on vent. Pulmonary on board for vent management full code prognosis very poor crit time 35 mins spent during the encounter. Thank you for consult and for giving an opportunity to take care of this patient. Dietary Evaluation Review Comments: 1. Consider EN/TPN if NPO >7days 2. Continue plan of care Expected Outcomes/Goals: 1. Pt will meet >75% of estimated needs within 2-3 days Plan discussed with: ANGELLA Peng MD Sep 14, 2024 10:14
--- NOTE | 2024-09-14 13:47 | DVHPN2 ---
Progress Note - Dictate Date Seen: Sep 14, 2024 Has the PT tested + for MRSA If YES, has PT been informed?: Yes Medical Necessity Reason Pt with a Central, PICC or Fol: Yes The following are medically ne: Betancourt Catheter Reason for betancourt catheter: Strict I&O Subjective remains intubated vital signs Vital Sign Date Time Temp Pulse Resp B/P (MAP) Pulse Ox O2 Delivery O2 Flow Rate FiO2 09/14/24 13:00 87 22 107/63 (78) 96 09/14/24 12:00 45 09/14/24 12:00 98.8 98.8 09/14/24 08:00 Mechanical Ventilator+ Total Intake and Output 09/13/24 09/13/24 09/14/24 15:00 23:00 07:00 Intake Total 824.327 ml 744.800 ml 662.925 ml Output Total 1300 ml 2000 ml Balance 824.327 ml -555.200 ml -1337.075 ml medications Current Medications Medications Dose Ordered Sig/[place] Route Start Time Stop Time Status Last Admin Dose Admin Albuterol 2.5 mg Q4HWA PRN NEB 09/02/24 18:30 09/14/24 06:40 2.5 MG Ipratropium [place] 0.5 mg Q4HWA PRN NEB 09/02/24 18:30 09/14/24 06:40 0.5 MG Acetaminophen 650 mg Q4HP PRN GT 09/03/24 10:00 09/03/24 10:21 650 MG Norepinephrine Bitartrate 32 mg/ Sodium Chloride 250 ml @ 0.938 mls/ hr Q24H IV 09/03/24 12:30 09/13/24 20:42 1.875 MLS/HR Pantoprazole Sodium 40 mg DAILY IV 09/04/24 10:00 09/14/24 09:57 40 MG Docusate Sodium 200 mg BID NG 09/06/24 22:00 09/14/24 09:58 200 MG Sennosides 17.2 mg HS PO 09/06/24 22:00 09/13/24 21:45 17.2 MG Acetylcysteine 200 mg Q8HR NEB 09/07/24 14:00 09/14/24 06:40 200 MG Atorvastatin Calcium 40 mg HS PO 09/07/24 22:00 09/13/24 21:45 40 MG Enoxaparin Sodium 30 mg DAILY SC 09/08/24 10:00 09/14/24 09:59 30 MG Propofol 100 ml @ 3.54 mls/hr Q24H IV 09/09/24 16:30 09/14/24 11:12 24.78 MLS/HR Enteral Nutritional Formula 1,000 ml 30ML/HR GT 09/10/24 13:15 Midazolam HCl 50 ml @ 1 mls/hr Q24H IV 09/10/24 14:45 09/14/24 04:02 4 MLS/HR Linezolid 300 ml @ 150 mls/hr Q12HR IV 09/11/24 22:00 09/14/24 11:17 150 MLS/HR Furosemide 40 mg BIDD IV 09/13/24 18:00 09/13/24 18:30 40 MG Lactulose 30 ml Q4HR PO 09/13/24 14:00 09/14/24 09:58 30 ML Ceftriaxone Sodium/Dextrose 50 ml @ 50 mls/hr DAILY IV 09/14/24 10:00 09/14/24 09:58 50 MLS/HR Sodium Chloride 10 ml QSHIFT@10,22 IV 09/13/24 22:00 09/14/24 09:58 10 ML Fentanyl Citrate 250 ml @ 2.5 mls/hr Q24H IV 09/14/24 07:30 Metoclopramide HCl 10 mg Q8HR IV 09/14/24 14:00 objective elderly female intubated no ankle edema laboratory and microbiology Laboratory Tests 09/14/24 03:37 Test 09/14/24 03:37 Range/Units Serum Glucose 89 74-106 mg/dL Assessment/Plan Acute kidney injury to hemodynamic etiology +/- tubular injury oliguric requiring initiation of hemodialysis multiple resolving Tabby in past but admission cr less than 1 Acute respiratory failure, patient intubated on ventilator Septic shock with multiorgan involvement history of PE Hypokakalemia Vancomycin toxicity Lasix IV b.i.d. reduce dose NO hd GIVEN improved urinary volume. replace electrolytes and monitor for recovery monitor for renal recovery Dietary Evaluation Review Comments: 1. Consider EN/TPN if NPO >7days 2. Continue plan of care Expected Outcomes/Goals: 1. Pt will meet >75% of estimated needs within 2-3 days Plan discussed with: Other Critical Care Time(min): 34 GUCCI ASHBY MD Sep 14, 2024 13:47
--- NOTE | 2024-09-14 17:10 | DVHPNRES ---
Progress Note Date Seen: Sep 14, 2024 Resident Creating Document: DAVID RIDDLE RESDIENT Has the PT tested + for MRSA If YES, has PT been informed?: Yes Medical Necessity Reason Pt with a Central, PICC or Fol: Yes The following are medically ne: Betancourt Catheter Reason for betancourt catheter: Strict I&O Subjective Review of Systems 63 yo morbidly obese with past history of pulmonary emboli, knee surgery (2015) ,multiple (6) abdominal surgery for hernia (2015) and bowel obstruction (2019) and multiple drug abuse brought to the hospital with shortness of breaths. Admitted and intubated on 09/02. Today, Patient seen examined at the bedside. Patient is sedated and on mechanical ventilation. Review of system could not obtain. Chest x-ray shows bilateral basal infiltration same to previous x-ray. Objective vital signs Vital Sign Date Time Temp Pulse Resp B/P (MAP) Pulse Ox O2 Delivery O2 Flow Rate FiO2 09/14/24 16:30 89 22 92/57 (69) 96 09/14/24 16:00 98.9 98.9 09/14/24 16:00 45 09/14/24 08:00 Mechanical Ventilator+ Total Intake and Output 09/13/24 09/13/24 09/14/24 15:00 23:00 07:00 Intake Total 824.327 ml 744.800 ml 662.925 ml Output Total 1300 ml 2000 ml Balance 824.327 ml -555.200 ml -1337.075 ml medications Current Medications Medications Dose Ordered Sig/Acacia Route Start Time Stop Time Status Last Admin Dose Admin Albuterol 2.5 mg Q4HWA PRN NEB 09/02/24 18:30 09/14/24 14:09 2.5 MG Ipratropium [place] 0.5 mg Q4HWA PRN NEB 09/02/24 18:30 09/14/24 14:09 0.5 MG Acetaminophen 650 mg Q4HP PRN GT 09/03/24 10:00 09/03/24 10:21 650 MG Norepinephrine Bitartrate 32 mg/ Sodium Chloride 250 ml @ 0.938 mls/ hr Q24H IV 09/03/24 12:30 09/13/24 20:42 1.875 MLS/HR Pantoprazole Sodium 40 mg DAILY IV 09/04/24 10:00 09/14/24 09:57 40 MG Docusate Sodium 200 mg BID NG 09/06/24 22:00 09/14/24 09:58 200 MG Sennosides 17.2 mg HS PO 09/06/24 22:00 09/13/24 21:45 17.2 MG Acetylcysteine 200 mg Q8HR NEB 09/07/24 14:00 09/14/24 14:10 200 MG Atorvastatin Calcium 40 mg HS PO 09/07/24 22:00 09/13/24 21:45 40 MG Enoxaparin Sodium 30 mg DAILY SC 09/08/24 10:00 09/14/24 09:59 30 MG Propofol 100 ml @ 3.54 mls/hr Q24H IV 09/09/24 16:30 09/14/24 11:12 24.78 MLS/HR Enteral Nutritional Formula 1,000 ml 30ML/HR GT 09/10/24 13:15 Midazolam HCl 50 ml @ 1 mls/hr Q24H IV 09/10/24 14:45 09/14/24 14:03 7 MLS/HR Linezolid 300 ml @ 150 mls/hr Q12HR IV 09/11/24 22:00 09/14/24 11:17 150 MLS/HR Furosemide 40 mg BIDD IV 09/13/24 18:00 09/13/24 18:30 40 MG Lactulose 30 ml Q4HR PO 09/13/24 14:00 09/14/24 09:58 30 ML Ceftriaxone Sodium/Dextrose 50 ml @ 50 mls/hr DAILY IV 09/14/24 10:00 09/14/24 09:58 50 MLS/HR Sodium Chloride 10 ml QSHIFT@10,22 IV 09/13/24 22:00 09/14/24 09:58 10 ML Fentanyl Citrate 250 ml @ 2.5 mls/hr Q24H IV 09/14/24 07:30 Metoclopramide HCl 10 mg Q8HR IV 09/14/24 14:00 09/14/24 14:02 10 MG Examination General: RASS -5 afebrile, mucosae are moist Cardiovascular: Normal S1 and S2. No murmurs, gallops or rubs Respiratory: Mechanically assisted ventilation, equal bilateral airway entree. Clear lung sounds on auscultation Abdomen: Soft, nontender, no organomegaly, normal bowel sounds MSK/skin: Mobilization of limbs cannot be evaluated. Skin is dry and warm. T race bilateral pedal edema Neurological: Orientation cannot be assessed. No apparent motor no sensitive deficits. Pupils are isocoric and reactive laboratory and microbiology Laboratory Tests 09/14/24 03:37 Test 09/14/24 03:37 Range/Units Serum Glucose 89 74-106 mg/dL Microbiology Date/Time Source Procedure Growth Status 09/11/24 14:35 Blood Blood Culture - Preliminary Resulted 09/11/24 00:00 Voided Urine Urine Culture - Final Complete 09/08/24 14:33 Bronchial Washings Gram Stain - Final Complete 09/08/24 14:33 Bronchial Washings Respiratory Culture - Final Complete 09/06/24 13:00 Vaginal Vaginal Culture - Final Enterococcus faecalis Methicillin Resistant S.aureus Complete 09/04/24 20:40 Nose MRSA Screen - Final Complete Labs and/or images reviewed: Labs reviewed by me, Image(s) reviewed by me Problem List/Assessment/Plan Problem List/Assessment/Plan NEURO: Acute metabolic encephalopathy likely due to septic shock Patient is sedated and on mechanical ventilation with RASS score -5 CARDIOVASCULAR: NSTEMI type 2 likely due to septic shock Has history of pulmonary emboli in 2016 Cardiology on the board, recommended conservative management Echocardiogram shows mild LVH with mild LV diastolic dysfunction with ejection fraction of 65 Doppler ultrasound of lower limb PULMONARY: Patient is sedated and on mechanical ventilation with pressure control mode with PEEP 8, respiratory rate 22, FiO2 45% Acute Hypoxic respiratory failure, likely due to pneumonia Septic shock likely due to pneumonia Pneumonia due to MRSA Bronchoscopy performed on 09/07 shows lots of secretion on the left main bronchus, bronchial lavage results shows MRSA Bronchoscopy was repeated on 09/08, shows less mucus secretion in compared to previous bronchoscopy Blood culture from 09/02/2024 shows staph hominis sensitive to vancomycin Sputum culture from 09/02/2024 shows MRSA, Streptococcus pneumoniae vancomycin Influenza and COVID-19 screening negative Continue N-acetylcysteine Continue breathing treatment Increased dose of ceftriaxone from 1 g to 2 g daily on 09/13 Continue linezolid, started on 09/11 Discontinue hydrocortisone If patient condition did not improved, may consider chest CT scan tomorrow Breathing treatment q.4 hours as needed GI: Patient has history of multiple surgery of hernia(2015) and bowel obstruction(2019) Abdominal ventral hernias, abdominal CT scan shows multiple ventral wall hernias containing fat and bowel with mild dilatation of proximal jejunum loops with jejunal loops course into the abdominal hernia Possible bowel obstruction, surgery consulted, recommended conservative management, suggested that small bowel series could not perform at the moment due to respiratory status of the patient Transaminitis, likely ischemic secondary to septic shock Bowel regimen: Increased lactulose to 30 mL q.4 hours and continue docusate and sennosides Continue metoclopramide 10 mg t.i.d. GI ppx: Protonix RENAL: FEDE , likely hemodynamically mediated Nephrology on the board, last HD session on 09/10 Recommended Lasix 40 mg b.i.d. Possible rhabdomyolysis, likely due to immobilization Creatinine kinase is raised at 8215, downtrending Monitoring ENDOCRINE: Hypertriglyceridemia, TG 623 Continue Atorvastatin 40 mg ID: Sputum cultures from 09/02/2024 shows MRSA, Streptococcus pneumoniae Blood culture from 09/02/2024 shows Staph hominis Results from bronchial washing, from 09/07/2024 shows no growth after 24 hours ID on the board, suggested that the culture results are probably due to contamination and recommended to repeat the culture Repeat blood culture Possible PID Patient has purulent vaginal discharge Vaginal bacterial culture, shows coagulase-negative Staphylococcus with few growth of possible Enterococcus species Metabolic: Hyperkalemia, improved Hyponatremia, improved Hypokalemia, supplemented Hypomagnesemia, supplemented Multidrug abuser: Per patient's daughter, she is a current user of amphetamine, marijuana and smoking cigarettes Hepatitis B and C serology negative Check HIV LINES/DRAINS/ACCESS: ETT, intubated on 09/02/2024 IV access Hemodialysis catheter on the right subclavian vein, placed on 09/05/2024 Left upper arm PICC line, placed on 09/13 Drips: Versed 5 Fentanyl to 50 Levophed 2 Switched propofol to Versed due to hypertriglyceridemia DVT ppx: Lovenox DIET: Jevity 30 mL/hour CODE STATUS: Full code Patient's status was updated with the patient's daughter on the phone. Critical time spent more than 83 minutes, including patient care, chart review and updating the family, excluding any procedures. Case discussed with Dr. Pinon Plan discussed with: Patient, Daughter, Other (RN) My Orders My Orders Orders - HEWADMAL,HEWAD RESDIENT Procedure Category Date Status Time Chest Xray 1 View XY 09/14/24 Resulted 04:00 Abg W/ Co-Ox RT 09/14/24 Logged 04:00 Dietary Evaluation Review Comments: 1. Consider EN/TPN if NPO >7days 2. Continue plan of care Expected Outcomes/Goals: 1. Pt will meet >75% of estimated needs within 2-3 days Date of Service: Sep 14, 2024 Billing Provider: DANE PINON MD Common Visit Codes: 06803-XOOZNOFL CARE 30-74 MIN, 20046-WBXKGNOT CARE-EACH +30MIN DAVID RIDDLE RESDIENT Sep 14, 2024 17:10 DANE PINON MD Sep 15, 2024 11:30
[2024-09-14] MEDS: fentaNYL Drip 2500mCg/250mlNS 250 ML IV SCH (17:50)
[2024-09-14] MEDS: FUROSEMIDE 40 MG/4 ML VIAL IV SCH (18:07)
--- NOTE | 2024-09-14 18:28 | DVHPN2 ---
Progress Note - Dictate Date Seen: Sep 14, 2024 Has the PT tested + for MRSA If YES, has PT been informed?: Yes Medical Necessity Reason Pt with a Central, PICC or Fol: Yes The following are medically ne: Betancourt Catheter Reason for betancourt catheter: Strict I&O Subjective Patient was seen and evaluated in follow up in the ICU. Patient is intubated and sedated on ventilator. 40% FiO2. Chest x-ray shows no change. BLE US is pending. Patients potassium was replaced. WBC is down to 23.8. BUN 84, Ehs Specialist 2.33. vital signs Vital Sign Date Time Temp Pulse Resp B/P (MAP) Pulse Ox O2 Delivery O2 Flow Rate FiO2 09/14/24 18:07 104/67 09/14/24 17:15 88 23 99 09/14/24 16:00 98.9 98.9 09/14/24 16:00 45 09/14/24 08:00 Mechanical Ventilator+ Total Intake and Output 09/13/24 09/13/24 09/14/24 15:00 23:00 07:00 Intake Total 824.327 ml 744.800 ml 662.925 ml Output Total 1300 ml 2000 ml Balance 824.327 ml -555.200 ml -1337.075 ml medications Current Medications Medications Dose Ordered Sig/Acacia Route Start Time Stop Time Status Last Admin Dose Admin Albuterol 2.5 mg Q4HWA PRN NEB 09/02/24 18:30 09/14/24 14:09 2.5 MG Ipratropium [place] 0.5 mg Q4HWA PRN NEB 09/02/24 18:30 09/14/24 14:09 0.5 MG Acetaminophen 650 mg Q4HP PRN GT 09/03/24 10:00 09/03/24 10:21 650 MG Norepinephrine Bitartrate 32 mg/ Sodium Chloride 250 ml @ 0.938 mls/ hr Q24H IV 09/03/24 12:30 09/13/24 20:42 1.875 MLS/HR Pantoprazole Sodium 40 mg DAILY IV 09/04/24 10:00 09/14/24 09:57 40 MG Docusate Sodium 200 mg BID NG 09/06/24 22:00 09/14/24 09:58 200 MG Sennosides 17.2 mg HS PO 09/06/24 22:00 09/13/24 21:45 17.2 MG Acetylcysteine 200 mg Q8HR NEB 09/07/24 14:00 09/14/24 14:10 200 MG Atorvastatin Calcium 40 mg HS PO 09/07/24 22:00 09/13/24 21:45 40 MG Enoxaparin Sodium 30 mg DAILY SC 09/08/24 10:00 09/14/24 09:59 30 MG Propofol 100 ml @ 3.54 mls/hr Q24H IV 09/09/24 16:30 09/14/24 11:12 24.78 MLS/HR Enteral Nutritional Formula 1,000 ml 30ML/HR GT 09/10/24 13:15 Midazolam HCl 50 ml @ 1 mls/hr Q24H IV 09/10/24 14:45 09/14/24 17:47 12 MLS/HR Linezolid 300 ml @ 150 mls/hr Q12HR IV 09/11/24 22:00 09/14/24 11:17 150 MLS/HR Lactulose 30 ml Q4HR PO 09/13/24 14:00 09/14/24 17:47 30 ML Ceftriaxone Sodium/Dextrose 50 ml @ 50 mls/hr DAILY IV 09/14/24 10:00 09/14/24 09:58 50 MLS/HR Sodium Chloride 10 ml QSHIFT@10,22 IV 09/13/24 22:00 09/14/24 09:58 10 ML Fentanyl Citrate 250 ml @ 2.5 mls/hr Q24H IV 09/14/24 07:30 09/14/24 17:50 17.5 MLS/HR Metoclopramide HCl 10 mg Q8HR IV 09/14/24 14:00 09/14/24 14:02 10 MG Furosemide 40 mg BIDD IV 09/14/24 18:00 09/14/24 18:07 40 MG objective GENERAL: Intubated on ventilator. Morbidly obese LUNGS: Decreased breath sounds. CARDIOVASCULAR: Heart sounds are good. ABDOMEN: Soft. Morbid pannus limited physical palpation. SKIN: Multiple scars to abdomen. Two open areas on abdomen with oozing wounds. laboratory and microbiology Laboratory Tests 09/14/24 03:37 Test 09/14/24 03:37 Range/Units Serum Glucose 89 74-106 mg/dL Problem List Septic shock. Acute on chronic respiratory failure. NSTEMI type II secondary to above. Rule out structural heart disease. Prolonged QT interval. Morbid obesity, Class 3. Assessment/Plan Continued all current supportive medical care. IV antibiotics as ordered. Vasopressors for hemodynamic support. GI prophylactics. Additional plan as per the hospital course. Critical care time of 45 minutes provided to include time spent evaluation of patient at bedside, when appropriate patient/family education for diagnosis, treatment plan, review of pertinent medical information and discussion of care with specialty providers and PCP. Mechanical ventilator parameters, treatment and adjustments have personally been reviewed by me and treatment plan by manager talent has also been reviewed. Dietary Evaluation Review Comments: 1. Consider EN/TPN if NPO >7days 2. Continue plan of care Expected Outcomes/Goals: 1. Pt will meet >75% of estimated needs within 2-3 days Plan discussed with: Other RELL STEWART MD Sep 14, 2024 18:28
--- NOTE | 2024-09-14 18:51 | DVH ---
EXAM: US BILAT LOWER DVT Clinical History: leg swelling Comparison: None Technique: Duplex Doppler evaluation of the deep venous systems of both lower extremities from the common femora l veins to the popliteal veins including color Doppler and spectral/pulsed waveform analysis was perf ormed. Findings: Incompressibility of the left popliteal vein. No visible intraluminal venous thrombus. No evidence of incompressibility or abnormal color or spectr al Doppler flow visualized in the deep right lower extremity and remaining left lower extremity veins . Proximal greater saphenous veins are grossly unremarkable. Impression: 1. Nonocclusive deep venous thrombus in the left popliteal vein. Critical Result: DVT Findings discussed with Cesar JIANG at 09/14/2024 06:46 PM.
[2024-09-15] VITALS (106 sets, daily range): BP systolic 81–135; BP diastolic 47–78; PULSE 80–98; RESP 20–31; TEMP 98.5–98.9; O2SAT 79–100
[2024-09-15 04:18] LABS: Basophils # (auto) 0.1 10 ^3/uL (0-0.2); Basophils % (auto) 0.2 % (0.0-2.0); Eosinophils # (auto) 0.4 10 ^3/uL (0-0.8); Eosinophils % (auto) 1.6 % (0.0-7.0); Hematocrit 38.8 % (36.0-46.0); Hemoglobin 13.1 g/dL (12.2-16.2); Lymphocytes # (auto) 1.1 10 ^3/uL (0.4-5.4); Lymphocytes % (auto) 4.8 % (10.0-50.0); Mean Corpuscular Hemoglobin 29.7 pg (28.0-32.0); Mean Corpuscular Hgb Conc. 33.9 g/dL (32.0-36.0); Mean Corpuscular Volume 87.6 fL (80.0-100.0); Monocytes % (auto) 8.4 % (0.0-12.0); Neutrophils # (auto) 19.9 10 ^3/uL (1.6-8.6); Platelet Count (auto) 321 10^3/uL (140-450); Red Blood Cells 4.43 10^6/uL (4.0-5.20); Red Cell Distribution Width 13.6 % (11.8-14.3); White Blood Cell 23.4 10^3/uL (4.4-10.8)
--- NOTE | 2024-09-15 04:18 | DVH ---
CHEST RADIOGRAPH Indication: Pneumonia Technique: Single frontal view of the chest was obtained Comparison: XY CHEST XRAY 1 VIEW on DOS: 09/14/24 FINDINGS: Lines and Tubes: The endotracheal tube terminates 3.5 cm above the teetee. Right central venous cath eter terminates in the superior vena cava. The enteric tube courses below the left hemidiaphragm and the tip extends outside the field of view. Left upper extremity PICC terminates in the superior vena cava. Lungs: No focal consolidation. Bilateral interstitial prominence. Pleura: There are small bilateral pleural effusions. No pneumothorax. Cardiomediastinal contours: Unremarkable Bones: No acute osseous abnormality. IMPRESSION: 1. Stable position of the support lines and tubes. Small bilateral pleural effusions. Bibasilar atele ctasis.
[2024-09-15 04:31] LABS: Albumin 3.9 g/dL (3.2-4.8); Anion Gap 14 (5-15); Aspartate Aminotransferase 39 U/L (13-40); BUN/Creatinine Ratio 42.7 (10.0-20.0); Bilirubin, Total 0.6 mg/dL (0.2-1.0); Calcium 10.1 mg/dL (8.7-10.4); Carbon Dioxide 26 mmol/L (20-31); Chloride 100 mmol/L (98-107); Sodium 140 mmol/L (136-145); Total Protein 7.2 g/dL (5.7-8.2)
[2024-09-15 05:07] LABS: Alanine Aminotransferase 46 U/L (7-40); Alkaline Phosphatase 124 U/L (46-116); Blood Urea Nitrogen 90 mg/dL (9-23); Glucose 111 mg/dL (74-106); Potassium 3.1 mmol/L (3.5-5.1)
[2024-09-15] MEDS: POTASSIUM CHL 20MEQ/100ML 100 ML IV SCH (06:06)
[2024-09-15 07:29] LABS: Base Excess -0.9 mmol/L (-2.0-3.0)
--- NOTE | 2024-09-15 12:01 | DVHPN2 ---
Progress Note - Dictate Date Seen: Sep 15, 2024 Has the PT tested + for MRSA If YES, has PT been informed?: Yes Medical Necessity Reason Pt with a Central, PICC or Fol: Yes The following are medically ne: Betancourt Catheter Reason for betancourt catheter: Strict I&O Subjective She is sedated and intubated on mechanical ventilation. White count trending down, currently at 23.4 vital signs Vital Sign Date Time Temp Pulse Resp B/P (MAP) Pulse Ox O2 Delivery O2 Flow Rate FiO2 09/15/24 10:00 90 09/15/24 10:00 40 09/15/24 09:45 22 104/66 (79) 94 09/15/24 08:00 Mechanical Ventilator+ 09/15/24 08:00 98.5 98.5 Total Intake and Output 09/14/24 09/14/24 09/15/24 15:00 23:00 07:00 Intake Total 807 ml 601.5 ml 691.566 ml Output Total 1650 ml 2300 ml Balance 807 ml -1048.5 ml -1608.434 ml medications Current Medications Medications Dose Ordered Sig/[place]acia Route Start Time Stop Time Status Last Admin Dose Admin Albuterol 2.5 mg Q4HWA PRN NEB 09/02/24 18:30 09/14/24 22:12 2.5 MG Ipratropium [place] 0.5 mg Q4HWA PRN NEB 09/02/24 18:30 09/15/24 07:57 0.5 MG Acetaminophen 650 mg Q4HP PRN GT 09/03/24 10:00 09/03/24 10:21 650 MG Norepinephrine Bitartrate 32 mg/ Sodium Chloride 250 ml @ 0.938 mls/ hr Q24H IV 09/03/24 12:30 09/13/24 20:42 1.875 MLS/HR Pantoprazole Sodium 40 mg DAILY IV 09/04/24 10:00 09/15/24 08:53 40 MG Docusate Sodium 200 mg BID NG 09/06/24 22:00 09/14/24 22:00 200 MG Acetylcysteine 200 mg Q8HR NEB 09/07/24 14:00 09/15/24 07:57 200 MG Atorvastatin Calcium 40 mg HS PO 09/07/24 22:00 09/14/24 22:00 40 MG Propofol 100 ml @ 3.54 mls/hr Q24H IV 09/09/24 16:30 09/14/24 11:12 24.78 MLS/HR Enteral Nutritional Formula 1,000 ml 30ML/HR GT 09/10/24 13:15 Midazolam HCl 50 ml @ 1 mls/hr Q24H IV 09/10/24 14:45 09/15/24 10:16 12 MLS/HR Linezolid 300 ml @ 150 mls/hr Q12HR IV 09/11/24 22:00 09/15/24 11:28 150 MLS/HR Ceftriaxone Sodium/Dextrose 50 ml @ 50 mls/hr DAILY IV 09/14/24 10:00 09/15/24 08:55 50 MLS/HR Sodium Chloride 10 ml QSHIFT@10,22 IV 09/13/24 22:00 09/15/24 08:55 10 ML Fentanyl Citrate 250 ml @ 2.5 mls/hr Q24H IV 09/14/24 07:30 09/15/24 06:14 22.5 MLS/HR Enoxaparin Sodium 60 mg Q12HR SC 09/15/24 22:00 UNV Metoclopramide HCl 5 mg Q8HR IV 09/15/24 14:00 objective General intubated and sedated HEENT: Atraumatic,intubated Neck: No swelling Lungs: Equal air entry and clear to auscultation Cardiovascular: S1 S2 heard no murmur Abdomen: Soft nontender, no organomegaly, nondistended Neuro: sedated, unable to assess Psych: unable to assess laboratory and microbiology Laboratory Tests 09/15/24 03:53 Test 09/15/24 03:53 Range/Units Serum Glucose 111 H 74-106 mg/dL Assessment/Plan Patient is a 63-year-old female presented to the hospital with: Staphylococcus aureus pneumonia ( MRSA) Streptococcus Pneumoniae pneumonia Septic shock resolving bacteremia : coag neg staphylococccus Acute Respiratory Failure [requiring mechanical ventilation] severe hypoxia Metabolic acidosis FEDE Morbidly obese BMI = 40 PE history Recommendations: antibiotics review Cefepime 09/02- 09/06 Meropenem 09/03-09/05 Ceftriaxone 09/07-ongoing Vancomycin 09/03- 09/11 Linezolid 09/11- ongoing overall, patient has received rx for MRSA pneumonia from 09/03 until now. total 13 days, plan to dc antibiotics in 1 days respiratory status is stable on vent. increased wbc possibly due to steroids Pulmonary on board for vent management full code prognosis very poor crit time 35 mins spent during the encounter. Thank you for consult and for giving an opportunity to take care of this patient. Dietary Evaluation Review Comments: 1. Consider EN/TPN if NPO >7days 2. Continue plan of care Expected Outcomes/Goals: 1. Pt will meet >75% of estimated needs within 2-3 days Plan discussed with: ANGELLA Peng MD Sep 15, 2024 12:01
[2024-09-15] MEDS: METOCLOPRAMIDE HCL 5MG/ml INJ 2ml VIAL IV SCH (13:54)
--- NOTE | 2024-09-15 14:46 | DVHPN2 ---
Progress Note - Dictate Date Seen: Sep 15, 2024 Has the PT tested + for MRSA If YES, has PT been informed?: Yes Medical Necessity Reason Pt with a Central, PICC or Fol: Yes The following are medically ne: Betancourt Catheter Reason for betancourt catheter: Strict I&O Subjective Patient was seen and evaluated in follow up in the ICU. Patient is intubated and sedated on ventilator. 45% FiO2. Patient is having loose BMs. WBC 23.4, K3.1, BUN 90, KERRICK KLEANER OPERATOR 2.11, ALT 46. vital signs Vital Sign Date Time Temp Pulse Resp B/P (MAP) Pulse Ox O2 Delivery O2 Flow Rate FiO2 09/15/24 12:00 45 09/15/24 12:00 98.9 93 22 94/61 (72) 91 98.9 09/15/24 08:00 Mechanical Ventilator+ Total Intake and Output 09/14/24 09/14/24 09/15/24 15:00 23:00 07:00 Intake Total 807 ml 601.5 ml 691.566 ml Output Total 1650 ml 2300 ml Balance 807 ml -1048.5 ml -1608.434 ml medications Current Medications Medications Dose Ordered Sig/[place] Route Start Time Stop Time Status Last Admin Dose Admin Albuterol 2.5 mg Q4HWA PRN NEB 09/02/24 18:30 09/14/24 22:12 2.5 MG Ipratropium [place] 0.5 mg Q4HWA PRN NEB 09/02/24 18:30 09/15/24 07:57 0.5 MG Acetaminophen 650 mg Q4HP PRN GT 09/03/24 10:00 09/03/24 10:21 650 MG Norepinephrine Bitartrate 32 mg/ Sodium Chloride 250 ml @ 0.938 mls/ hr Q24H IV 09/03/24 12:30 09/13/24 20:42 1.875 MLS/HR Pantoprazole Sodium 40 mg DAILY IV 09/04/24 10:00 09/15/24 08:53 40 MG Docusate Sodium 200 mg BID NG 09/06/24 22:00 09/14/24 22:00 200 MG Acetylcysteine 200 mg Q8HR NEB 09/07/24 14:00 09/15/24 07:57 200 MG Atorvastatin Calcium 40 mg HS PO 09/07/24 22:00 09/14/24 22:00 40 MG Propofol 100 ml @ 3.54 mls/hr Q24H IV 09/09/24 16:30 09/14/24 11:12 24.78 MLS/HR Enteral Nutritional Formula 1,000 ml 30ML/HR GT 09/10/24 13:15 Midazolam HCl 50 ml @ 1 mls/hr Q24H IV 09/10/24 14:45 09/15/24 10:16 12 MLS/HR Linezolid 300 ml @ 150 mls/hr Q12HR IV 09/11/24 22:00 09/15/24 11:28 150 MLS/HR Ceftriaxone Sodium/Dextrose 50 ml @ 50 mls/hr DAILY IV 09/14/24 10:00 09/15/24 08:55 50 MLS/HR Sodium Chloride 10 ml QSHIFT@10,22 IV 09/13/24 22:00 09/15/24 08:55 10 ML Fentanyl Citrate 250 ml @ 2.5 mls/hr Q24H IV 09/14/24 07:30 09/15/24 06:14 22.5 MLS/HR Enoxaparin Sodium 60 mg Q12HR SC 09/15/24 22:00 Metoclopramide HCl 5 mg Q8HR IV 09/15/24 14:00 objective GENERAL: Intubated on ventilator. Morbidly obese LUNGS: Decreased breath sounds. CARDIOVASCULAR: Heart sounds are good. ABDOMEN: Soft. Morbid pannus limited physical palpation. SKIN: Multiple scars to abdomen. Two open areas on abdomen with oozing wounds. laboratory and microbiology Laboratory Tests 09/15/24 03:53 Test 09/15/24 03:53 Range/Units Serum Glucose 111 H 74-106 mg/dL Problem List Septic shock. Acute on chronic respiratory failure. NSTEMI type II secondary to above. Rule out structural heart disease. Prolonged QT interval. Morbid obesity, Class 3. Assessment/Plan Continued all current supportive medical care. IV antibiotics as ordered. Vasopressors for hemodynamic support. GI prophylactics. Additional plan as per the hospital course. Critical care time of 45 minutes provided to include time spent evaluation of patient at bedside, when appropriate patient/family education for diagnosis, treatment plan, review of pertinent medical information and discussion of care with specialty providers and PCP. Mechanical ventilator parameters, treatment and adjustments have personally been reviewed by me and treatment plan by clinical microbiologist has also been reviewed. Dietary Evaluation Review Comments: 1. Consider EN/TPN if NPO >7days 2. Continue plan of care Expected Outcomes/Goals: 1. Pt will meet >75% of estimated needs within 2-3 days Plan discussed with: Other RELL STEWART MD Sep 15, 2024 13:47
--- NOTE | 2024-09-15 15:00 | DVHPN2 ---
Progress Note - Dictate Date Seen: Sep 15, 2024 Has the PT tested + for MRSA If YES, has PT been informed?: Yes Medical Necessity Reason Pt with a Central, PICC or Fol: Yes The following are medically ne: Betancourt Catheter Reason for betancourt catheter: Strict I&O Subjective remains intubated vital signs Vital Sign Date Time Temp Pulse Resp B/P (MAP) Pulse Ox O2 Delivery O2 Flow Rate FiO2 09/15/24 14:01 91 22 104/64 (77) 91 45 09/15/24 12:00 98.9 98.9 09/15/24 08:00 Mechanical Ventilator+ Total Intake and Output 09/14/24 09/14/24 09/15/24 15:00 23:00 07:00 Intake Total 807 ml 601.5 ml 691.566 ml Output Total 1650 ml 2300 ml Balance 807 ml -1048.5 ml -1608.434 ml medications Current Medications Medications Dose Ordered Sig/[place]acia Route Start Time Stop Time Status Last Admin Dose Admin Albuterol 2.5 mg Q4HWA PRN NEB 09/02/24 18:30 09/15/24 13:57 2.5 MG Ipratropium [place] 0.5 mg Q4HWA PRN NEB 09/02/24 18:30 09/15/24 13:57 0.5 MG Acetaminophen 650 mg Q4HP PRN GT 09/03/24 10:00 09/03/24 10:21 650 MG Norepinephrine Bitartrate 32 mg/ Sodium Chloride 250 ml @ 0.938 mls/ hr Q24H IV 09/03/24 12:30 09/13/24 20:42 1.875 MLS/HR Pantoprazole Sodium 40 mg DAILY IV 09/04/24 10:00 09/15/24 08:53 40 MG Docusate Sodium 200 mg BID NG 09/06/24 22:00 09/14/24 22:00 200 MG Acetylcysteine 200 mg Q8HR NEB 09/07/24 14:00 09/15/24 13:57 200 MG Atorvastatin Calcium 40 mg HS PO 09/07/24 22:00 09/14/24 22:00 40 MG Propofol 100 ml @ 3.54 mls/hr Q24H IV 09/09/24 16:30 09/14/24 11:12 24.78 MLS/HR Enteral Nutritional Formula 1,000 ml 30ML/HR GT 09/10/24 13:15 Midazolam HCl 50 ml @ 1 mls/hr Q24H IV 09/10/24 14:45 09/15/24 14:32 12 MLS/HR Linezolid 300 ml @ 150 mls/hr Q12HR IV 09/11/24 22:00 09/15/24 11:28 150 MLS/HR Ceftriaxone Sodium/Dextrose 50 ml @ 50 mls/hr DAILY IV 09/14/24 10:00 09/15/24 08:55 50 MLS/HR Sodium Chloride 10 ml QSHIFT@10,22 IV 09/13/24 22:00 09/15/24 08:55 10 ML Fentanyl Citrate 250 ml @ 2.5 mls/hr Q24H IV 09/14/24 07:30 09/15/24 06:14 22.5 MLS/HR Enoxaparin Sodium 60 mg Q12HR SC 09/15/24 22:00 Metoclopramide HCl 5 mg Q8HR IV 09/15/24 14:00 09/15/24 13:54 5 MG objective elderly female intubated no ankle edema laboratory and microbiology Laboratory Tests 09/15/24 03:53 Test 09/15/24 03:53 Range/Units Serum Glucose 111 H 74-106 mg/dL Assessment/Plan Acute kidney injury to hemodynamic etiology +/- tubular injury oliguric requiring initiation of hemodialysis multiple resolving Tabby in past but admission cr less than 1 Acute respiratory failure, patient intubated on ventilator Septic shock with multiorgan involvement history of PE Hypokakalemia Vancomycin toxicity Renal recovery is noted Lasix hold today Continue to replace electrolytes including potassium Review patient creatinine tomorrow a.m. and if continues to show downward trend and or geremias then recommend removal of dialysis catheter NO hd GIVEN improved urinary volume Dietary Evaluation Review Comments: 1. Consider EN/TPN if NPO >7days 2. Continue plan of care Expected Outcomes/Goals: 1. Pt will meet >75% of estimated needs within 2-3 days Plan discussed with: Other GUCCI ASHBY MD Sep 15, 2024 15:00
--- NOTE | 2024-09-15 20:26 | DVHPNRES ---
Progress Note Date Seen: Sep 15, 2024 Resident Creating Document: DAVID RIDDLE CHHAYAENT Has the PT tested + for MRSA If YES, has PT been informed?: Yes Medical Necessity Reason Pt with a Central, PICC or Fol: Yes The following are medically ne: Betancourt Catheter Reason for betancourt catheter: Strict I&O Subjective Review of Systems 63 yo morbidly obese with past history of pulmonary emboli, knee surgery (2015) ,multiple (6) abdominal surgery for hernia (2015) and bowel obstruction (2019) and multiple drug abuse brought to the hospital with shortness of breaths. Admitted and intubated on 09/02. Today, Patient seen examined at the bedside. Patient is sedated and on mechanical ventilation. Review of system could not obtain. Chest x-ray shows bilateral small pleural effusion, with bilateral basilar atelectasis. Patient reports: No new complaints, Feels better Changes from previous H/P or p: Changes Objective vital signs Vital Sign Date Time Temp Pulse Resp B/P (MAP) Pulse Ox O2 Delivery O2 Flow Rate FiO2 09/15/24 18:45 94 22 108/66 (80) 99 09/15/24 18:39 45 09/15/24 16:00 98.8 98.8 09/15/24 08:00 Mechanical Ventilator+ Total Intake and Output 09/14/24 09/14/24 09/15/24 15:00 23:00 07:00 Intake Total 807 ml 601.5 ml 691.566 ml Output Total 1650 ml 2300 ml Balance 807 ml -1048.5 ml -1608.434 ml medications Current Medications Medications Dose Ordered Sig/[place] Route Start Time Stop Time Status Last Admin Dose Admin Albuterol 2.5 mg Q4HWA PRN NEB 09/02/24 18:30 09/15/24 13:57 2.5 MG Ipratropium [place] 0.5 mg Q4HWA PRN NEB 09/02/24 18:30 09/15/24 13:57 0.5 MG Acetaminophen 650 mg Q4HP PRN GT 09/03/24 10:00 09/03/24 10:21 650 MG Norepinephrine Bitartrate 32 mg/ Sodium Chloride 250 ml @ 0.938 mls/ hr Q24H IV 09/03/24 12:30 09/13/24 20:42 1.875 MLS/HR Pantoprazole Sodium 40 mg DAILY IV 09/04/24 10:00 09/15/24 08:53 40 MG Docusate Sodium 200 mg BID NG 09/06/24 22:00 09/14/24 22:00 200 MG Acetylcysteine 200 mg Q8HR NEB 09/07/24 14:00 09/15/24 13:57 200 MG Atorvastatin Calcium 40 mg HS PO 09/07/24 22:00 09/14/24 22:00 40 MG Propofol 100 ml @ 3.54 mls/hr Q24H IV 09/09/24 16:30 09/14/24 11:12 24.78 MLS/HR Enteral Nutritional Formula 1,000 ml 30ML/HR GT 09/10/24 13:15 Midazolam HCl 50 ml @ 1 mls/hr Q24H IV 09/10/24 14:45 09/15/24 18:36 12 MLS/HR Linezolid 300 ml @ 150 mls/hr Q12HR IV 09/11/24 22:00 09/15/24 11:28 150 MLS/HR Ceftriaxone Sodium/Dextrose 50 ml @ 50 mls/hr DAILY IV 09/14/24 10:00 09/15/24 08:55 50 MLS/HR Sodium Chloride 10 ml QSHIFT@10,22 IV 09/13/24 22:00 09/15/24 08:55 10 ML Fentanyl Citrate 250 ml @ 2.5 mls/hr Q24H IV 09/14/24 07:30 09/15/24 17:28 22.5 MLS/HR Enoxaparin Sodium 60 mg Q12HR SC 09/15/24 22:00 Metoclopramide HCl 5 mg Q8HR IV 09/15/24 14:00 09/15/24 13:54 5 MG Examination General: RASS -5 afebrile, mucosae are moist Cardiovascular: Normal S1 and S2. No murmurs, gallops or rubs Respiratory: Mechanically assisted ventilation, equal bilateral airway entree. Clear lung sounds on auscultation Abdomen: Soft, nontender, no organomegaly, normal bowel sounds MSK/skin: Mobilization of limbs cannot be evaluated. Skin is dry and warm. T race bilateral pedal edema Neurological: Orientation cannot be assessed. No apparent motor no sensitive deficits. Pupils are isocoric and reactive laboratory and microbiology Laboratory Tests 09/15/24 03:53 Test 09/15/24 03:53 Range/Units Serum Glucose 111 H 74-106 mg/dL Microbiology Date/Time Source Procedure Growth Status 09/11/24 14:35 Blood Blood Culture - Final Staphylococcus epidermidis Complete 09/11/24 00:00 Voided Urine Urine Culture - Final Complete 09/08/24 14:33 Bronchial Washings Gram Stain - Final Complete 09/08/24 14:33 Bronchial Washings Respiratory Culture - Final Complete 09/06/24 13:00 Vaginal Vaginal Culture - Final Enterococcus faecalis Methicillin Resistant S.aureus Complete 09/04/24 20:40 Nose MRSA Screen - Final Complete Labs and/or images reviewed: Labs reviewed by me, Image(s) reviewed by me Problem List/Assessment/Plan Problem List/Assessment/Plan NEURO: Acute metabolic encephalopathy likely due to septic shock Patient is sedated and on mechanical ventilation with RASS score -5 CARDIOVASCULAR: NSTEMI type 2 likely due to septic shock Has history of pulmonary emboli in 2015 Cardiology on the board, recommended conservative management Echocardiogram shows mild LVH with mild LV diastolic dysfunction with ejection fraction of 65 PULMONARY: Patient is sedated and on mechanical ventilation with pressure control mode with PEEP 8, respiratory rate 22, FiO2 40%, making VT of 740 mL Acute Hypoxic respiratory failure, likely due to pneumonia Septic shock likely due to pneumonia Pneumonia due to MRSA Bronchoscopy performed on 09/07 shows lots of secretion on the left main bronchus, bronchial lavage results shows MRSA Bronchoscopy was repeated on 09/08, shows less mucus secretion in compared to previous bronchoscopy Blood culture from 09/02/2024 shows staph hominis sensitive to vancomycin Sputum culture from 09/02/2024 shows MRSA, Streptococcus pneumoniae vancomycin Influenza and COVID-19 screening negative Today, respiratory status improved, could maintain saturation at 93% with 40% FiO2 Continue N-acetylcysteine Continue breathing treatment Increased dose of ceftriaxone from 1 g to 2 g daily on 09/13 Continue linezolid, started on 09/11 Breathing treatment q.4 hours as needed CPAP trial tomorrow GI: Patient has history of multiple surgery of hernia(2015) and bowel obstruction(2019) Abdominal ventral hernias, abdominal CT scan shows multiple ventral wall hernias containing fat and bowel with mild dilatation of proximal jejunum loops with jejunal loops course into the abdominal hernia Possible bowel obstruction, surgery consulted, recommended conservative management, suggested that small bowel series could not perform at the moment due to respiratory status of the patient Transaminitis, likely ischemic secondary to septic shock Patient had 2 large bowel movement last night Bowel regimen: Increased continue docusate, discontinue lactulose and sennoside Discontinue Reglan GI ppx: Protonix RENAL: FEDE , likely hemodynamically mediated, improving Nephrology on the board, last HD session on 09/10 Discontinued Lasix, due to hypokalemia and increased BUN Possible rhabdomyolysis, likely due to immobilization Creatinine kinase is raised at 8215, downtrending Monitoring ENDOCRINE: Hypertriglyceridemia, TG 623 09/04, 320 at 09/15 Likely due to propofol, discontinued propofol Continue Atorvastatin 40 mg ID: Sputum cultures from 09/02/2024 shows MRSA, Streptococcus pneumoniae Blood culture from 09/02/2024 shows Staph hominis Results from bronchial washing, from 09/07/2024 shows no growth after 24 hours ID on the board, suggested that the culture results are probably due to contamination and recommended to repeat the culture Repeat blood culture Possible PID Patient has purulent vaginal discharge Vaginal bacterial culture, shows coagulase-negative Staphylococcus with few growth of possible Enterococcus species Metabolic: Hyperkalemia, improved Hyponatremia, improved Hypokalemia, supplemented Hypomagnesemia, supplemented Multidrug abuser: Per patient's daughter, she is a current user of amphetamine, marijuana and smoking cigarettes Hepatitis B and C serology negative Check HIV Heme: DVT Doppler ultrasound of lower limb at 08/15 shows, nonocclusive DVT at left popliteal vein Lovenox 60 mg b.i.d., if kidney function improves may increase dose of Lovenox LINES/DRAINS/ACCESS: ETT, intubated on 09/02/2024 IV access Hemodialysis catheter on the right subclavian vein, placed on 09/05/2024 Left upper arm PICC line, placed on 09/13 Drips: Versed 5 Fentanyl to 225 Levophed 0 DVT ppx: Lovenox DIET: Jevity 30 mL/hour CODE STATUS: Full code Patient's status was updated with the patient's daughter on the phone. Critical time spent more than 82 minutes, including patient care, chart review and updating the family, excluding any procedures. Case discussed with Dr. Pinon Plan discussed with: Patient, Daughter, Other (RN) My Orders My Orders Orders - DAVID RIDDLE Procedure Category Date Status Time Enoxaparin Sodium PHA 09/15/24 In Process (Lovenox) 22:00 Comprehensive LAB 09/16/24 Verified Metabolic Panel 04:00 Complete Blood Count LAB 09/16/24 Verified 04:00 Chest Xray 1 View XY 09/16/24 Logged 04:00 Abg W/ Co-Ox RT 09/16/24 Logged 04:00 Dietary Evaluation Review Comments: 1. Consider EN/TPN if NPO >7days 2. Continue plan of care Expected Outcomes/Goals: 1. Pt will meet >75% of estimated needs within 2-3 days Date of Service: Sep 15, 2024 Billing Provider: DANE PINON MD Common Visit Codes: 66063-LCKWJCXP CARE 30-74 MIN, 69390-[id number] CARE-EACH +30MIN DAVID RIDDLE RESDIENT Sep 15, 2024 20:26 DANE PINON MD Sep 16, 2024 11:20
[2024-09-15] MEDS: Jevity 1.2 Cal/Fiber 1 Liter GT SCH (22:43)
[2024-09-15] MEDS: ENOXAPARIN SOD 60 MG/0.6 ML SYRINGE SC SCH (22:43)
[2024-09-16] VITALS (105 sets, daily range): BP systolic 88–139; BP diastolic 49–80; PULSE 84–110; RESP 16–29; TEMP 98.8–99.1; O2SAT 87–100
[2024-09-16 03:49] LABS: Basophils # (auto) 0.1 10 ^3/uL (0-0.2); Basophils % (auto) 0.7 % (0.0-2.0); Eosinophils # (auto) 0.3 10 ^3/uL (0-0.8); Eosinophils % (auto) 1.7 % (0.0-7.0); Hematocrit 35.8 % (36.0-46.0); Lymphocytes # (auto) 1.2 10 ^3/uL (0.4-5.4); Lymphocytes % (auto) 6.7 % (10.0-50.0); Mean Corpuscular Hemoglobin 29.4 pg (28.0-32.0); Mean Corpuscular Hgb Conc. 33.5 g/dL (32.0-36.0); Mean Corpuscular Volume 87.7 fL (80.0-100.0); Monocytes # (auto) 1.7 10 ^3/uL (0-1.3); Monocytes % (auto) 9.1 % (0.0-12.0); Neutrophils % (auto) 81.8 % (37.0-80.0); Nucleated Red Blood Cells % 0.1 %; Platelet Count (auto) 322 10^3/uL (140-450); Red Blood Cells 4.08 10^6/uL (4.0-5.20); Red Cell Distribution Width 13.3 % (11.8-14.3); White Blood Cell 18.3 10^3/uL (4.4-10.8)
--- NOTE | 2024-09-16 04:08 | DVH ---
CHEST RADIOGRAPH Indication: Pneumonia Technique: Single frontal view of the chest was obtained Comparison: XY CHEST XRAY 1 VIEW on DOS: 09/15/24, XY CHEST XRAY 1 VIEW on DOS: 09/14/24, XY CHEST PORT ABLE on DOS: 09/13/24, XY CHEST PORTABLE on DOS: 09/12/24, XY CHEST XRAY 1 VIEW on DOS: 09/11/24, XY CH EST XRAY 1 VIEW on DOS: 09/15/24 FINDINGS: Lines and Tubes: The endotracheal tube terminates 3.5 cm above the teetee. Right central venous cath eter terminates in the superior vena cava. The enteric tube courses below the left hemidiaphragm and the tip extends outside the field of view. Left upper extremity PICC terminates in the superior vena cava. Lungs: No focal consolidation. Bilateral interstitial prominence. Pleura: There are small bilateral pleural effusions. No pneumothorax. Cardiomediastinal contours: Unremarkable Bones: No acute osseous abnormality. IMPRESSION: 1. Stable position of the support lines and tubes. Small bilateral pleural effusions. Bibasilar atele ctasis.
[2024-09-16 04:09] LABS: Albumin 3.6 g/dL (3.2-4.8); Alkaline Phosphatase 104 U/L (46-116); Anion Gap 11 (5-15); BUN/Creatinine Ratio 46.7 (10.0-20.0); Calcium 10.1 mg/dL (8.7-10.4); Carbon Dioxide 27 mmol/L (20-31); Chloride 105 mmol/L (98-107); Glucose 100 mg/dL (74-106); Sodium 143 mmol/L (136-145)
[2024-09-16 04:10] LABS: Bilirubin, Total 0.6 mg/dL (0.2-1.0); Total Protein 6.7 g/dL (5.7-8.2)
[2024-09-16 04:15] LABS: Alanine Aminotransferase 46 U/L (7-40); Aspartate Aminotransferase 45 U/L (13-40); Blood Urea Nitrogen 84 mg/dL (9-23); Potassium 3.2 mmol/L (3.5-5.1)
[2024-09-16] MEDS: POTASSIUM CHL 20MEQ/100ML 100 ML IV SCH ×2 (06:04→12:46)
[2024-09-16 07:06] LABS: Base Excess 0.3 mmol/L (-2.0-3.0)
[2024-09-16 09:32] LABS: Base Excess -1.4 mmol/L (-2.0-3.0)
--- NOTE | 2024-09-16 11:32 | DVHPN2 ---
Progress Note - Dictate Date Seen: Sep 16, 2024 Has the PT tested + for MRSA If YES, has PT been informed?: Yes Medical Necessity Reason Pt with a Central, PICC or Fol: Yes The following are medically ne: Betancourt Catheter Reason for betancourt catheter: Strict I&O Subjective Patient was seen and evaluated at bedside. She is sedated and intubated on mechanical ventilation. No new acute complaints noted. She is feeling better. White count trending down, currently at 18.3. Linezolid: [started 09/11- Ongoing] Ceftriaxone Sodium [Started 09/07 - Ongoing] 09/15, chest x-ray : Stable position of the support lines and tubes. Small bilateral pleural effusions. Bibasilar atelectasis. 09/04 : gall bladder US reviewed Chest US showed no evidence for right or left pleural effusion on the provided images. 09/11 : blood cultures : show Gram Positive Cocci in clusters vital signs Vital Sign Date Time Temp Pulse Resp B/P (MAP) Pulse Ox O2 Delivery O2 Flow Rate FiO2 09/16/24 10:15 91 22 107/62 (77) 95 45 09/16/24 10:00 Mechanical Ventilator+ 09/16/24 04:00 98.8 98.8 Total Intake and Output 09/15/24 09/15/24 09/16/24 15:00 23:00 07:00 Intake Total 833 ml 507.5 ml 562.5 ml Output Total 950 ml 1300 ml Balance 833 ml -442.5 ml -737.5 ml medications Current Medications Medications Dose Ordered Sig/[place] Route Start Time Stop Time Status Last Admin Dose Admin Albuterol 2.5 mg Q4HWA PRN NEB 09/02/24 18:30 09/16/24 10:11 2.5 MG Ipratropium [place] 0.5 mg Q4HWA PRN NEB 09/02/24 18:30 09/16/24 10:11 0.5 MG Acetaminophen 650 mg Q4HP PRN GT 09/03/24 10:00 09/03/24 10:21 650 MG Norepinephrine Bitartrate 32 mg/ Sodium Chloride 250 ml @ 0.938 mls/ hr Q24H IV 09/03/24 12:30 09/13/24 20:42 1.875 MLS/HR Pantoprazole Sodium 40 mg DAILY IV 09/04/24 10:00 09/16/24 09:32 40 MG Docusate Sodium 200 mg BID NG 09/06/24 22:00 09/15/24 22:43 200 MG Acetylcysteine 200 mg Q8HR NEB 09/07/24 14:00 09/16/24 06:04 200 MG Atorvastatin Calcium 40 mg HS PO 09/07/24 22:00 09/15/24 22:44 40 MG Enteral Nutritional Formula 1,000 ml 30ML/HR GT 09/10/24 13:15 09/15/24 22:43 1,000 ML Midazolam HCl 50 ml @ 1 mls/hr Q24H IV 09/10/24 14:45 09/16/24 07:55 9 MLS/HR Linezolid 300 ml @ 150 mls/hr Q12HR IV 09/11/24 22:00 09/16/24 09:32 150 MLS/HR Ceftriaxone Sodium/Dextrose 50 ml @ 50 mls/hr DAILY IV 09/14/24 10:00 09/16/24 09:32 50 MLS/HR Sodium Chloride 10 ml QSHIFT@10,22 IV 09/13/24 22:00 09/15/24 22:44 10 ML Fentanyl Citrate 250 ml @ 2.5 mls/hr Q24H IV 09/14/24 07:30 09/16/24 05:56 20 MLS/HR Enoxaparin Sodium 60 mg Q12HR SC 09/15/24 22:00 09/16/24 09:32 60 MG Metoclopramide HCl 5 mg Q8HR IV 09/15/24 14:00 09/16/24 05:56 5 MG Potassium Chloride 100 ml @ 50 mls/hr Q2H IV 09/16/24 12:00 09/16/24 15:59 objective General intubated and sedated HEENT: Atraumatic,intubated Neck: No swelling Lungs: Equal air entry and clear to auscultation Cardiovascular: S1 S2 heard no murmur Abdomen: Soft nontender, no organomegaly, nondistended Neuro: sedated, unable to assess Psych: unable to assess laboratory and microbiology Laboratory Tests 09/16/24 03:28 Test 09/16/24 03:28 Range/Units Serum Glucose 100 74-106 mg/dL Assessment/Plan Patient is a 63-year-old female presented to the hospital with: Staphylococcus aureus pneumonia ( MRSA) Streptococcus Pneumoniae pneumonia Septic shock resolving bacteremia : coag neg staphylococccus Acute Respiratory Failure [requiring mechanical ventilation] severe hypoxia Metabolic acidosis FEDE Morbidly obese BMI = 40 PE history Recommendations: antibiotics review Cefepime 09/02- 09/06 Meropenem 09/03-09/05 Ceftriaxone 09/07-ongoing Vancomycin 09/03- 09/11 Linezolid 09/11- ongoing overall, patient has received rx for MRSA pneumonia from 09/03 until now. total 13 days, plan to dc antibiotics in 1 days respiratory status is stable on vent. Blood culture:co ag neg staph, i think its contaminated. Recent on 09/07 showed no growth 09/11 : show Gram Positive Cocci in clusters Pulmonary on board for vent management full code prognosis gaurded crit time 35 mins spent during the encounter. Thank you for consult and for giving an opportunity to take care of this patient. Dietary Evaluation Review Comments: 1. Consider EN/TPN if NPO >7days 2. Continue plan of care Expected Outcomes/Goals: 1. Pt will meet >75% of estimated needs within 2-3 days Plan discussed with: ANGELLA Peng MD Sep 16, 2024 11:32
--- NOTE | 2024-09-16 12:06 | DVHPN2 ---
Progress Note - Dictate Date Seen: Sep 16, 2024 Has the PT tested + for MRSA If YES, has PT been informed?: Yes Medical Necessity Reason Pt with a Central, PICC or Fol: Yes The following are medically ne: Betancourt Catheter Reason for betancourt catheter: Strict I&O Subjective Patient was seen and evaluated in follow up in the ICU. Patient is intubated and sedated on ventilator. 45% FiO2. Patient received wound care this am. Chest x- ray shows small bilateral pleural effusions and bibasilar atelectasis. WBC 18.3, K 3.2, BUN 84, FEATHER DUSTER WINDER 1.80, AST 45, ALT 46. vital signs Vital Sign Date Time Temp Pulse Resp B/P (MAP) Pulse Ox O2 Delivery O2 Flow Rate FiO2 09/16/24 10:15 91 22 107/62 (77) 95 45 09/16/24 10:00 Mechanical Ventilator+ 09/16/24 04:00 98.8 98.8 Total Intake and Output 09/15/24 09/15/24 09/16/24 15:00 23:00 07:00 Intake Total 833 ml 507.5 ml 562.5 ml Output Total 950 ml 1300 ml Balance 833 ml -442.5 ml -737.5 ml medications Current Medications Medications Dose Ordered Sig/[place] Route Start Time Stop Time Status Last Admin Dose Admin Albuterol 2.5 mg Q4HWA PRN NEB 09/02/24 18:30 09/16/24 10:11 2.5 MG Ipratropium [place] 0.5 mg Q4HWA PRN NEB 09/02/24 18:30 09/16/24 10:11 0.5 MG Acetaminophen 650 mg Q4HP PRN GT 09/03/24 10:00 09/03/24 10:21 650 MG Norepinephrine Bitartrate 32 mg/ Sodium Chloride 250 ml @ 0.938 mls/ hr Q24H IV 09/03/24 12:30 09/13/24 20:42 1.875 MLS/HR Pantoprazole Sodium 40 mg DAILY IV 09/04/24 10:00 09/16/24 09:32 40 MG Docusate Sodium 200 mg BID NG 09/06/24 22:00 09/15/24 22:43 200 MG Acetylcysteine 200 mg Q8HR NEB 09/07/24 14:00 09/16/24 06:04 200 MG Atorvastatin Calcium 40 mg HS PO 09/07/24 22:00 09/15/24 22:44 40 MG Enteral Nutritional Formula 1,000 ml 30ML/HR GT 09/10/24 13:15 09/15/24 22:43 1,000 ML Midazolam HCl 50 ml @ 1 mls/hr Q24H IV 09/10/24 14:45 09/16/24 07:55 9 MLS/HR Linezolid 300 ml @ 150 mls/hr Q12HR IV 09/11/24 22:00 09/16/24 09:32 150 MLS/HR Ceftriaxone Sodium/Dextrose 50 ml @ 50 mls/hr DAILY IV 09/14/24 10:00 09/16/24 09:32 50 MLS/HR Sodium Chloride 10 ml QSHIFT@10,22 IV 09/13/24 22:00 09/15/24 22:44 10 ML Fentanyl Citrate 250 ml @ 2.5 mls/hr Q24H IV 09/14/24 07:30 09/16/24 05:56 20 MLS/HR Enoxaparin Sodium 60 mg Q12HR SC 09/15/24 22:00 09/16/24 09:32 60 MG Metoclopramide HCl 5 mg Q8HR IV 09/15/24 14:00 09/16/24 05:56 5 MG Potassium Chloride 100 ml @ 50 mls/hr Q2H IV 09/16/24 12:00 09/16/24 15:59 objective GENERAL: Intubated on ventilator. Morbidly obese LUNGS: Decreased breath sounds. CARDIOVASCULAR: Heart sounds are good. ABDOMEN: Soft. Morbid pannus limited physical palpation. SKIN: Multiple scars to abdomen. Two open areas on abdomen with oozing wounds. laboratory and microbiology Laboratory Tests 09/16/24 03:28 Test 09/16/24 03:28 Range/Units Serum Glucose 100 74-106 mg/dL Problem List Septic shock. Acute on chronic respiratory failure. NSTEMI type II secondary to above. Rule out structural heart disease. Prolonged QT interval. Morbid obesity, Class 3. Assessment/Plan Continued all current supportive medical care. IV antibiotics as ordered. Vasopressors for hemodynamic support. GI prophylactics. Additional plan as per the hospital course. Critical care time of 45 minutes provided to include time spent evaluation of patient at bedside, when appropriate patient/family education for diagnosis, treatment plan, review of pertinent medical information and discussion of care with specialty providers and PCP. Mechanical ventilator parameters, treatment and adjustments have personally been reviewed by me and treatment plan by teasel setter has also been reviewed. Dietary Evaluation Review Comments: 1. Consider EN/TPN if NPO >7days 2. Continue plan of care Expected Outcomes/Goals: 1. Pt will meet >75% of estimated needs within 2-3 days Plan discussed with: Other RELL STEWART MD Sep 16, 2024 11:48
--- NOTE | 2024-09-16 15:38 | DVHPN2 ---
Progress Note - Dictate Date Seen: Sep 16, 2024 Has the PT tested + for MRSA If YES, has PT been informed?: Yes Medical Necessity Reason Pt with a Central, PICC or Fol: Yes The following are medically ne: Betancourt Catheter Reason for betancourt catheter: Strict I&O Subjective remains intubated vital signs Vital Sign Date Time Temp Pulse Resp B/P (MAP) Pulse Ox O2 Delivery O2 Flow Rate FiO2 09/16/24 14:15 95 22 105/61 (76) 97 09/16/24 14:00 Mechanical Ventilator+ 45 45 09/16/24 12:00 99.0 99.0 Total Intake and Output 09/15/24 09/15/24 09/16/24 15:00 23:00 07:00 Intake Total 833 ml 507.5 ml 562.5 ml Output Total 950 ml 1300 ml Balance 833 ml -442.5 ml -737.5 ml medications Current Medications Medications Dose Ordered Sig/Acacia Route Start Time Stop Time Status Last Admin Dose Admin Albuterol 2.5 mg Q4HWA PRN NEB 09/02/24 18:30 09/16/24 14:04 2.5 MG Ipratropium [place] 0.5 mg Q4HWA PRN NEB 09/02/24 18:30 09/16/24 14:04 0.5 MG Acetaminophen 650 mg Q4HP PRN GT 09/03/24 10:00 09/03/24 10:21 650 MG Norepinephrine Bitartrate 32 mg/ Sodium Chloride 250 ml @ 0.938 mls/ hr Q24H IV 09/03/24 12:30 09/13/24 20:42 1.875 MLS/HR Pantoprazole Sodium 40 mg DAILY IV 09/04/24 10:00 09/16/24 09:32 40 MG Docusate Sodium 200 mg BID NG 09/06/24 22:00 09/15/24 22:43 200 MG Acetylcysteine 200 mg Q8HR NEB 09/07/24 14:00 09/16/24 14:05 200 MG Atorvastatin Calcium 40 mg HS PO 09/07/24 22:00 09/15/24 22:44 40 MG Enteral Nutritional Formula 1,000 ml 30ML/HR GT 09/10/24 13:15 09/15/24 22:43 1,000 ML Midazolam HCl 50 ml @ 1 mls/hr Q24H IV 09/10/24 14:45 09/16/24 13:38 9 MLS/HR Linezolid 300 ml @ 150 mls/hr Q12HR IV 09/11/24 22:00 09/16/24 09:32 150 MLS/HR Ceftriaxone Sodium/Dextrose 50 ml @ 50 mls/hr DAILY IV 09/14/24 10:00 09/16/24 09:32 50 MLS/HR Sodium Chloride 10 ml QSHIFT@10,22 IV 09/13/24 22:00 09/16/24 12:45 10 ML Fentanyl Citrate 250 ml @ 2.5 mls/hr Q24H IV 09/14/24 07:30 09/16/24 05:56 20 MLS/HR Enoxaparin Sodium 60 mg Q12HR SC 09/15/24 22:00 09/16/24 09:32 60 MG Metoclopramide HCl 5 mg Q8HR IV 09/15/24 14:00 09/16/24 13:38 5 MG Potassium Chloride 100 ml @ 50 mls/hr Q2H IV 09/16/24 12:00 09/16/24 15:59 09/16/24 14:36 50 MLS/HR objective elderly female intubated no ankle edema laboratory and microbiology Laboratory Tests 09/16/24 03:28 Test 09/16/24 03:28 Range/Units Serum Glucose 100 74-106 mg/dL Assessment/Plan Acute kidney injury to hemodynamic etiology +/- tubular injury oliguric requiring initiation of hemodialysis multiple resolving Tabby in past but admission cr less than 1 Acute respiratory failure, patient intubated on ventilator Septic shock with multiorgan involvement history of PE Hypokakalemia Vancomycin toxicity TABBY resolving UOP >2L without lasix. may use PRN going forward No further HD, discussed removal of HD catheter by primary team potassium replacement Dietary Evaluation Review Comments: 1. Consider EN/TPN if NPO >7days 2. Continue plan of care Expected Outcomes/Goals: 1. Pt will meet >75% of estimated needs within 2-3 days Plan discussed with: Other Critical Care Time(min): 33 GUCCI ASHBY MD Sep 16, 2024 15:38
[2024-09-16] MEDS: MAGNESIUM SULFATE 1GM/100ML 100 ML IV ONE (16:56)
--- NOTE | 2024-09-16 17:17 | DVHPNRES ---
Progress Note Date Seen: Sep 16, 2024 Resident Creating Document: DAVID RIDDLE YENNI Has the PT tested + for MRSA If YES, has PT been informed?: Yes Medical Necessity Reason Pt with a Central, PICC or Fol: Yes The following are medically ne: Betancourt Catheter Reason for betancourt catheter: Strict I&O Subjective Review of Systems 63 yo morbidly obese with past history of pulmonary emboli, knee surgery (2015) ,multiple (6) abdominal surgery for hernia (2015) and bowel obstruction (2019) and multiple drug abuse brought to the hospital with shortness of breaths. Admitted and intubated on 09/02. Today, Patient seen examined at the bedside. Patient is sedated and on mechanical ventilation. Review of system could not obtain. Chest x-ray shows bilateral small pleural effusion, with bilateral basilar atelectasis Serum to previous film. Patient reports: No new complaints Changes from previous H/P or p: No Changes Objective vital signs Vital Sign Date Time Temp Pulse Resp B/P (MAP) Pulse Ox O2 Delivery O2 Flow Rate FiO2 09/16/24 16:06 93 22 122/64 (83) 100 45 09/16/24 14:00 Mechanical Ventilator+ 09/16/24 12:00 99.0 99.0 Total Intake and Output 09/15/24 09/15/24 09/16/24 15:00 23:00 07:00 Intake Total 833 ml 507.5 ml 562.5 ml Output Total 950 ml 1300 ml Balance 833 ml -442.5 ml -737.5 ml medications Current Medications Medications Dose Ordered Sig/[place] Route Start Time Stop Time Status Last Admin Dose Admin Albuterol 2.5 mg Q4HWA PRN NEB 09/02/24 18:30 09/16/24 14:04 2.5 MG Ipratropium [place] 0.5 mg Q4HWA PRN NEB 09/02/24 18:30 09/16/24 14:04 0.5 MG Acetaminophen 650 mg Q4HP PRN GT 09/03/24 10:00 09/03/24 10:21 650 MG Norepinephrine Bitartrate 32 mg/ Sodium Chloride 250 ml @ 0.938 mls/ hr Q24H IV 09/03/24 12:30 09/13/24 20:42 1.875 MLS/HR Pantoprazole Sodium 40 mg DAILY IV 09/04/24 10:00 09/16/24 09:32 40 MG Docusate Sodium 200 mg BID NG 09/06/24 22:00 09/15/24 22:43 200 MG Acetylcysteine 200 mg Q8HR NEB 09/07/24 14:00 09/16/24 14:05 200 MG Atorvastatin Calcium 40 mg HS PO 09/07/24 22:00 09/15/24 22:44 40 MG Enteral Nutritional Formula 1,000 ml 30ML/HR GT 09/10/24 13:15 09/15/24 22:43 1,000 ML Midazolam HCl 50 ml @ 1 mls/hr Q24H IV 09/10/24 14:45 09/16/24 13:38 9 MLS/HR Linezolid 300 ml @ 150 mls/hr Q12HR IV 09/11/24 22:00 09/16/24 09:32 150 MLS/HR Ceftriaxone Sodium/Dextrose 50 ml @ 50 mls/hr DAILY IV 09/14/24 10:00 09/16/24 09:32 50 MLS/HR Sodium Chloride 10 ml QSHIFT@10,22 IV 09/13/24 22:00 09/16/24 12:45 10 ML Fentanyl Citrate 250 ml @ 2.5 mls/hr Q24H IV 09/14/24 07:30 09/16/24 17:00 17.5 MLS/HR Enoxaparin Sodium 60 mg Q12HR SC 09/15/24 22:00 09/16/24 09:32 60 MG Metoclopramide HCl 5 mg Q8HR IV 09/15/24 14:00 09/16/24 13:38 5 MG Examination General: RASS -5 afebrile, mucosae are moist Cardiovascular: Normal S1 and S2. No murmurs, gallops or rubs Respiratory: Mechanically assisted ventilation, equal bilateral airway entree. Clear lung sounds on auscultation Abdomen: Soft, nontender, no organomegaly, normal bowel sounds MSK/skin: Mobilization of limbs cannot be evaluated. Skin is dry and warm. T race bilateral pedal edema Neurological: Orientation cannot be assessed. No apparent motor no sensitive deficits. Pupils are isocoric and reactive laboratory and microbiology Laboratory Tests 09/16/24 03:28 Test 09/16/24 03:28 Range/Units Serum Glucose 100 74-106 mg/dL Microbiology Date/Time Source Procedure Growth Status 09/11/24 14:35 Blood Blood Culture - Final Staphylococcus epidermidis Complete 09/11/24 00:00 Voided Urine Urine Culture - Final Complete 09/08/24 14:33 Bronchial Washings Gram Stain - Final Complete 09/08/24 14:33 Bronchial Washings Respiratory Culture - Final Complete 09/06/24 13:00 Vaginal Vaginal Culture - Final Enterococcus faecalis Methicillin Resistant S.aureus Complete 09/04/24 20:40 Nose MRSA Screen - Final Complete Labs and/or images reviewed: Labs reviewed by me, Image(s) reviewed by me Problem List/Assessment/Plan Problem List/Assessment/Plan NEURO: Acute metabolic encephalopathy likely due to septic shock Patient is sedated and on mechanical ventilation with RASS score -5 CARDIOVASCULAR: NSTEMI type 2 likely due to septic shock Has history of pulmonary emboli in 2015 Cardiology on the board, recommended conservative management Echocardiogram shows mild LVH with mild LV diastolic dysfunction with ejection fraction of 65 PULMONARY: Patient is sedated and on mechanical ventilation with pressure control mode with PEEP 8, respiratory rate 22, FiO2 40%, making VT of 740 mL Acute Hypoxic respiratory failure, likely due to pneumonia Septic shock likely due to pneumonia Pneumonia due to MRSA Bronchoscopy performed on 09/07 shows lots of secretion on the left main bronchus, bronchial lavage results shows MRSA Bronchoscopy was repeated on 09/08, shows less mucus secretion in compared to previous bronchoscopy Blood culture from 09/02/2024 shows staph hominis sensitive to vancomycin Sputum culture from 09/02/2024 shows MRSA, Streptococcus pneumoniae vancomycin Influenza and COVID-19 screening negative Blood culture from 09/11 shows Staphylococcus epidermidis, sensitive to vancomycin Can maintain saturation at 93% with 40% FiO2 Continue N-acetylcysteine Continue breathing treatment Increased dose of ceftriaxone from 1 g to 2 g daily on 09/13 Continue linezolid, started on 09/11 Breathing treatment q.4 hours as needed CPAP trial tomorrow GI: Patient has history of multiple surgery of hernia(2015) and bowel obstruction(2019) Abdominal ventral hernias, abdominal CT scan shows multiple ventral wall hernias containing fat and bowel with mild dilatation of proximal jejunum loops with jejunal loops course into the abdominal hernia Possible bowel obstruction, surgery consulted, recommended conservative management, suggested that small bowel series could not perform at the moment due to respiratory status of the patient Transaminitis, likely ischemic secondary to septic shock Patient had 2 large bowel movement last night Bowel regimen: Docusate Discontinue Reglan GI ppx: Protonix RENAL: FEDE , likely hemodynamically mediated, improving Nephrology on the board, last HD session on 09/10 Discontinued Lasix, due to hypokalemia and increased BUN Possible rhabdomyolysis, likely due to immobilization Creatinine kinase is raised at 8215, downtrending Monitoring ENDOCRINE: Hypertriglyceridemia, TG 623 09/04, 320 at 09/15 Likely due to propofol, discontinued propofol Continue Atorvastatin 40 mg ID: Sputum cultures from 09/02/2024 shows MRSA, Streptococcus pneumoniae Blood culture from 09/02/2024 shows Staph hominis Results from bronchial washing, from 09/07/2024 shows no growth after 24 hours ID on the board, suggested that the culture results are probably due to contamination and recommended to repeat the culture Repeat blood culture Possible PID Patient has purulent vaginal discharge Vaginal bacterial culture, shows coagulase-negative Staphylococcus with few growth of possible Enterococcus species Metabolic: Hyperkalemia, improved Hyponatremia, improved Hypokalemia, supplemented Hypomagnesemia, supplemented Multidrug abuser: Per patient's daughter, she is a current user of amphetamine, marijuana and smoking cigarettes Hepatitis B and C serology negative Check HIV Heme: DVT Doppler ultrasound of lower limb at 08/15 shows, nonocclusive DVT at left popliteal vein Lovenox 60 mg b.i.d., if kidney function improves may increase dose of Lovenox LINES/DRAINS/ACCESS: ETT, intubated on 09/02/2024 IV access Hemodialysis catheter on the right subclavian vein, placed on 09/05/2024, and removed on 09/17 Left upper arm PICC line, placed on 09/13 Drips: Versed 5 Fentanyl to 225 Levophed 0 DVT ppx: Therapeutic dose of Lovenox DIET: Jevity 30 mL/hour CODE STATUS: Full code Patient's status was updated with the patient's daughter on the phone. Critical time spent more than 83 minutes, including patient care, chart review and updating the family, excluding any procedures. Case discussed with Dr. Pinon Plan discussed with: Patient, Daughter, Other (RN) My Orders My Orders Orders - DAVID RIDDLE Procedure Category Date Status Time Chest Xray 1 View XY 09/16/24 Resulted 04:00 Abg W/ Co-Ox RT 09/16/24 Logged 04:00 Communication Order ORDERS 09/16/24 Transmitted 15:54 Dietary Evaluation Review Comments: 1. Consider EN/TPN if NPO >7days 2. Continue plan of care Expected Outcomes/Goals: 1. Pt will meet >75% of estimated needs within 2-3 days Date of Service: Sep 16, 2024 Billing Provider: DANE PINON MD Common Visit Codes: 27408-[id number] CARE 30-74 MIN, 04780-[id number] CARE-EACH +30MIN DAVID RIDDLE RESDIENT Sep 16, 2024 17:17 DANE PINON MD Sep 19, 2024 15:16
[2024-09-17] VITALS (96 sets, daily range): BP systolic 85–133; BP diastolic 43–100; PULSE 82–99; RESP 12–22; TEMP 98.8–99.2; O2SAT 92–100
[2024-09-17 04:00] LABS: Basophils # (auto) 0.1 10 ^3/uL (0-0.2); Basophils % (auto) 0.7 % (0.0-2.0); Eosinophils # (auto) 0.2 10 ^3/uL (0-0.8); Eosinophils % (auto) 1.3 % (0.0-7.0); Hematocrit 32.4 % (36.0-46.0); Lymphocytes # (auto) 1.3 10 ^3/uL (0.4-5.4); Lymphocytes % (auto) 8.3 % (10.0-50.0); Mean Corpuscular Hemoglobin 29.9 pg (28.0-32.0); Mean Corpuscular Volume 87.9 fL (80.0-100.0); Monocytes # (auto) 1.5 10 ^3/uL (0-1.3); Monocytes % (auto) 9.5 % (0.0-12.0); Neutrophils # (auto) 12.5 10 ^3/uL (1.6-8.6); Neutrophils % (auto) 80.2 % (37.0-80.0); Platelet Count (auto) 309 10^3/uL (140-450); Red Blood Cells 3.68 10^6/uL (4.0-5.20); Red Cell Distribution Width 13.2 % (11.8-14.3); White Blood Cell 15.6 10^3/uL (4.4-10.8)
[2024-09-17 04:05] LABS: Albumin 3.6 g/dL (3.2-4.8); Alkaline Phosphatase 104 U/L (46-116); Anion Gap 11 (5-15); BUN/Creatinine Ratio 48.3 (10.0-20.0); Bilirubin, Total 0.6 mg/dL (0.2-1.0); Calcium 10.1 mg/dL (8.7-10.4); Carbon Dioxide 26 mmol/L (20-31); Potassium 3.7 mmol/L (3.5-5.1); Total Protein 6.5 g/dL (5.7-8.2)
[2024-09-17 04:21] LABS: Alanine Aminotransferase 62 U/L (7-40); Aspartate Aminotransferase 71 U/L (13-40); Blood Urea Nitrogen 72 mg/dL (9-23); Chloride 110 mmol/L (98-107); Glucose 111 mg/dL (74-106); Sodium 147 mmol/L (136-145)
--- NOTE | 2024-09-17 05:36 | DVH ---
CHEST RADIOGRAPH Indication: Pneumonia Technique: Single frontal view of the chest was obtained COMPARISON: XY CHEST XRAY 1 VIEW on DOS: 09/16/24, XY CHEST XRAY 1 VIEW on DOS: 09/15/24, XY CHEST XRAY 1 VIEW on DOS: 09/14/24 FINDINGS: Lines and Tubes: Endotracheal tube and enteric catheter in satisfactory position. Left PICC in satisf actory position. Lungs: Multifocal airspace disease Pleura: No effusion. No pneumothorax. Cardiomediastinal contours: Unremarkable Bones: Unremarkable IMPRESSION: Lines and tubes in satisfactory position. No significant interval change.
[2024-09-17 07:16] LABS: Base Excess 0.2 mmol/L (-2.0-3.0)
[2024-09-17 13:05] LABS: Base Excess 1.6 mmol/L (-2.0-3.0)
--- NOTE | 2024-09-17 15:05 | DVHPN2 ---
Progress Note - Dictate Date Seen: Sep 17, 2024 Has the PT tested + for MRSA If YES, has PT been informed?: Yes Medical Necessity Reason Pt with a Central, PICC or Fol: Yes The following are medically ne: Betancourt Catheter Reason for betancourt catheter: Strict I&O Subjective She is sedated and intubated on mechanical ventilation. No new acute complaints noted White count trending down, currently at 15.6. vital signs Vital Sign Date Time Temp Pulse Resp B/P (MAP) Pulse Ox O2 Delivery O2 Flow Rate FiO2 09/17/24 14:08 89 22 114/65 (81) 96 45 09/17/24 12:00 Mechanical Ventilator+ 09/17/24 04:00 99.2 99.2 Total Intake and Output 09/16/24 09/16/24 09/17/24 15:00 23:00 07:00 Intake Total 812.0 ml 336.0 ml 602.0 ml Output Total 775 ml 1100 ml Balance 812.0 ml -439.0 ml -498.0 ml medications Current Medications Medications Dose Ordered Sig/[place] Route Start Time Stop Time Status Last Admin Dose Admin Albuterol 2.5 mg Q4HWA PRN NEB 09/02/24 18:30 09/17/24 14:08 2.5 MG Ipratropium [place] 0.5 mg Q4HWA PRN NEB 09/02/24 18:30 09/17/24 14:08 0.5 MG Acetaminophen 650 mg Q4HP PRN GT 09/03/24 10:00 09/03/24 10:21 650 MG Norepinephrine Bitartrate 32 mg/ Sodium Chloride 250 ml @ 0.938 mls/ hr Q24H IV 09/03/24 12:30 09/13/24 20:42 1.875 MLS/HR Pantoprazole Sodium 40 mg DAILY IV 09/04/24 10:00 09/17/24 09:34 40 MG Docusate Sodium 200 mg BID NG 09/06/24 22:00 09/17/24 09:34 200 MG Acetylcysteine 200 mg Q8HR NEB 09/07/24 14:00 09/17/24 14:08 200 MG Atorvastatin Calcium 40 mg HS PO 09/07/24 22:00 09/16/24 21:22 40 MG Enteral Nutritional Formula 1,000 ml 30ML/HR GT 09/10/24 13:15 09/15/24 22:43 1,000 ML Midazolam HCl 50 ml @ 1 mls/hr Q24H IV 09/10/24 14:45 09/17/24 11:22 9 MLS/HR Linezolid 300 ml @ 150 mls/hr Q12HR IV 09/11/24 22:00 09/17/24 09:44 150 MLS/HR Ceftriaxone Sodium/Dextrose 50 ml @ 50 mls/hr DAILY IV 09/14/24 10:00 09/17/24 09:35 50 MLS/HR Sodium Chloride 10 ml QSHIFT@10,22 IV 09/13/24 22:00 09/17/24 09:35 10 ML Fentanyl Citrate 250 ml @ 2.5 mls/hr Q24H IV 09/14/24 07:30 09/17/24 07:46 17.5 MLS/HR Enoxaparin Sodium 60 mg Q12HR SC 09/15/24 22:00 09/17/24 09:35 60 MG Metoclopramide HCl 5 mg Q8HR IV 09/15/24 14:00 09/17/24 05:45 5 MG objective General intubated and sedated HEENT: Atraumatic,intubated Neck: No swelling Lungs: Equal air entry and clear to auscultation Cardiovascular: S1 S2 heard no murmur Abdomen: Soft nontender, no organomegaly, nondistended Neuro: sedated, unable to assess Psych: unable to assess laboratory and microbiology Laboratory Tests 09/17/24 03:27 Test 09/17/24 03:27 Range/Units Serum Glucose 111 H 74-106 mg/dL Assessment/Plan Patient is a 63-year-old female presented to the hospital with: Staphylococcus aureus pneumonia ( MRSA) Streptococcus Pneumoniae pneumonia Septic shock resolving bacteremia : coag neg staphylococccus Acute Respiratory Failure [requiring mechanical ventilation] severe hypoxia Metabolic acidosis FEDE Morbidly obese BMI = 40 PE history Recommendations: antibiotics review Cefepime 09/02- 09/06 Meropenem 09/03-09/05 Ceftriaxone 09/07-ongoing Vancomycin 09/03- 09/11 Linezolid 09/11- ongoing overall, patient has received rx for MRSA pneumonia from 09/03 until now. total 14 days, plan to dc antibiotics respiratory status is stable on vent. Blood culture:co ag neg staph, i think its contaminated. Recent on 09/07 showed no growth 09/11 : show Gram Positive Cocci in clusters Pulmonary on board for vent management full code prognosis gaurded crit time 35 mins spent during the encounter. Thank you for consult and for giving an opportunity to take care of this patient. Dietary Evaluation Review Comments: 1. Consider EN/TPN if NPO >7days 2. Continue plan of care Expected Outcomes/Goals: 1. Pt will meet >75% of estimated needs within 2-3 days Plan discussed with: ANGELLA Peng MD Sep 17, 2024 15:05
--- NOTE | 2024-09-17 16:14 | DVHPN2 ---
Progress Note - Dictate Date Seen: Sep 17, 2024 Has the PT tested + for MRSA If YES, has PT been informed?: Yes Medical Necessity Reason Pt with a Central, PICC or Fol: Yes The following are medically ne: Betancourt Catheter Reason for betancourt catheter: Strict I&O Subjective Adequate urine volumes vital signs Vital Sign Date Time Temp Pulse Resp B/P (MAP) Pulse Ox O2 Delivery O2 Flow Rate FiO2 09/17/24 14:08 89 22 114/65 (81) 96 45 09/17/24 14:00 Mechanical Ventilator+ 09/17/24 08:00 98.8 98.8 Total Intake and Output 09/16/24 09/16/24 09/17/24 15:00 23:00 07:00 Intake Total 812.0 ml 336.0 ml 602.0 ml Output Total 775 ml 1100 ml Balance 812.0 ml -439.0 ml -498.0 ml medications Current Medications Medications Dose Ordered Sig/[place] Route Start Time Stop Time Status Last Admin Dose Admin Albuterol 2.5 mg Q4HWA PRN NEB 09/02/24 18:30 09/17/24 14:08 2.5 MG Ipratropium [place] 0.5 mg Q4HWA PRN NEB 09/02/24 18:30 09/17/24 14:08 0.5 MG Acetaminophen 650 mg Q4HP PRN GT 09/03/24 10:00 09/03/24 10:21 650 MG Norepinephrine Bitartrate 32 mg/ Sodium Chloride 250 ml @ 0.938 mls/ hr Q24H IV 09/03/24 12:30 09/13/24 20:42 1.875 MLS/HR Pantoprazole Sodium 40 mg DAILY IV 09/04/24 10:00 09/17/24 09:34 40 MG Docusate Sodium 200 mg BID NG 09/06/24 22:00 09/17/24 09:34 200 MG Acetylcysteine 200 mg Q8HR NEB 09/07/24 14:00 09/17/24 14:08 200 MG Atorvastatin Calcium 40 mg HS PO 09/07/24 22:00 09/16/24 21:22 40 MG Enteral Nutritional Formula 1,000 ml 30ML/HR GT 09/10/24 13:15 09/15/24 22:43 1,000 ML Midazolam HCl 50 ml @ 1 mls/hr Q24H IV 09/10/24 14:45 09/17/24 11:22 9 MLS/HR Ceftriaxone Sodium/Dextrose 50 ml @ 50 mls/hr DAILY IV 09/14/24 10:00 09/17/24 09:35 50 MLS/HR Sodium Chloride 10 ml QSHIFT@10,22 IV 09/13/24 22:00 09/17/24 09:35 10 ML Fentanyl Citrate 250 ml @ 2.5 mls/hr Q24H IV 09/14/24 07:30 09/17/24 07:46 17.5 MLS/HR Enoxaparin Sodium 60 mg Q12HR SC 09/15/24 22:00 09/17/24 09:35 60 MG Metoclopramide HCl 5 mg Q8HR IV 09/15/24 14:00 09/17/24 15:36 5 MG objective gen: intubated lungs: occ ronchi cvs: no rub ext: no sigifnicant edema laboratory and microbiology Laboratory Tests 09/17/24 03:27 Test 09/17/24 03:27 Range/Units Serum Glucose 111 H 74-106 mg/dL Assessment/Plan IMP: 1) Hemodynamically mediated FEDE/VMN setting of shock - resolving 2) CKD stage IIIA? 3) shock with multiorgan involvement 4) history of PE 5) leukocytosis 6) bacteremia REC: - hypotonic IV fluids - resolved acute kidney injury - even fluid balance if able Dietary Evaluation Review Comments: 1. Consider EN/TPN if NPO >7days 2. Continue plan of care Expected Outcomes/Goals: 1. Pt will meet >75% of estimated needs within 2-3 days Plan discussed with: Other PERICO CASAREZ MD Sep 17, 2024 16:14
--- NOTE | 2024-09-17 20:52 | DVHPNRES ---
Progress Note Date Seen: Sep 17, 2024 Resident Creating Document: DAVID RIDDLE YENNI Has the PT tested + for MRSA If YES, has PT been informed?: Yes Medical Necessity Reason Pt with a Central, PICC or Fol: Yes The following are medically ne: Betancourt Catheter Reason for betancourt catheter: Strict I&O Subjective Review of Systems 63 yo morbidly obese with past history of pulmonary emboli, knee surgery (2015) ,multiple (6) abdominal surgery for hernia (2015) and bowel obstruction (2019) and multiple drug abuse brought to the hospital with shortness of breaths. Admitted and intubated on 09/02. Today, Patient seen examined at the bedside. Patient is sedated and on mechanical ventilation. Review of system could not obtain. Chest x-ray shows bilateral small pleural effusion, with bilateral basilar atelectasis, seem to previous film. Patient reports: No new complaints Objective vital signs Vital Sign Date Time Temp Pulse Resp B/P (MAP) Pulse Ox O2 Delivery O2 Flow Rate FiO2 09/17/24 20:15 87 18 95/50 (65) 94 45 09/17/24 18:00 Mechanical Ventilator+ 09/17/24 16:00 98.9 98.9 Total Intake and Output 09/16/24 09/16/24 09/17/24 15:00 23:00 07:00 Intake Total 812.0 ml 336.0 ml 602.0 ml Output Total 775 ml 1100 ml Balance 812.0 ml -439.0 ml -498.0 ml medications Current Medications Medications Dose Ordered Sig/Acacia Route Start Time Stop Time Status Last Admin Dose Admin Albuterol 2.5 mg Q4HWA PRN NEB 09/02/24 18:30 09/17/24 18:47 2.5 MG Ipratropium [place] 0.5 mg Q4HWA PRN NEB 09/02/24 18:30 09/17/24 18:47 0.5 MG Acetaminophen 650 mg Q4HP PRN GT 09/03/24 10:00 09/03/24 10:21 650 MG Norepinephrine Bitartrate 32 mg/ Sodium Chloride 250 ml @ 0.938 mls/ hr Q24H IV 09/03/24 12:30 09/13/24 20:42 1.875 MLS/HR Pantoprazole Sodium 40 mg DAILY IV 09/04/24 10:00 09/17/24 09:34 40 MG Docusate Sodium 200 mg BID NG 09/06/24 22:00 09/17/24 09:34 200 MG Acetylcysteine 200 mg Q8HR NEB 09/07/24 14:00 09/17/24 18:48 200 MG Atorvastatin Calcium 40 mg HS PO 09/07/24 22:00 09/16/24 21:22 40 MG Enteral Nutritional Formula 1,000 ml 30ML/HR GT 09/10/24 13:15 09/15/24 22:43 1,000 ML Midazolam HCl 50 ml @ 1 mls/hr Q24H IV 09/10/24 14:45 09/17/24 17:04 7 MLS/HR Ceftriaxone Sodium/Dextrose 50 ml @ 50 mls/hr DAILY IV 09/14/24 10:00 09/17/24 09:35 50 MLS/HR Sodium Chloride 10 ml QSHIFT@10,22 IV 09/13/24 22:00 09/17/24 09:35 10 ML Fentanyl Citrate 250 ml @ 2.5 mls/hr Q24H IV 09/14/24 07:30 09/17/24 19:48 15 MLS/HR Metoclopramide HCl 5 mg Q8HR IV 09/15/24 14:00 09/17/24 15:36 5 MG Enoxaparin Sodium 100 mg Q12HR SC 09/17/24 22:00 Examination General: RASS -5 afebrile, mucosae are moist Cardiovascular: Normal S1 and S2. No murmurs, gallops or rubs Respiratory: Mechanically assisted ventilation, equal bilateral airway entree. Clear lung sounds on auscultation Abdomen: Soft, nontender, no organomegaly, normal bowel sounds MSK/skin: Mobilization of limbs cannot be evaluated. Skin is dry and warm. T race bilateral pedal edema Neurological: Orientation cannot be assessed. No apparent motor no sensitive deficits. Pupils are isocoric and reactive laboratory and microbiology Laboratory Tests 09/17/24 03:27 Test 09/17/24 03:27 Range/Units Serum Glucose 111 H 74-106 mg/dL Microbiology Date/Time Source Procedure Growth Status 09/11/24 14:35 Blood Blood Culture - Final Staphylococcus epidermidis Complete 09/11/24 00:00 Voided Urine Urine Culture - Final Complete 09/08/24 14:33 Bronchial Washings Gram Stain - Final Complete 09/08/24 14:33 Bronchial Washings Respiratory Culture - Final Complete 09/06/24 13:00 Vaginal Vaginal Culture - Final Enterococcus faecalis Methicillin Resistant S.aureus Complete 09/04/24 20:40 Nose MRSA Screen - Final Complete Labs and/or images reviewed: Labs reviewed by me, Image(s) reviewed by me Problem List/Assessment/Plan Problem List/Assessment/Plan NEURO: Acute metabolic encephalopathy likely due to septic shock Patient is sedated and on mechanical ventilation with RASS score -5 CARDIOVASCULAR: NSTEMI type 2 likely due to septic shock Has history of pulmonary emboli in 2016 Cardiology on the board, recommended conservative management Echocardiogram shows mild LVH with mild LV diastolic dysfunction with ejection fraction of 65 PULMONARY: Patient is sedated and on mechanical ventilation with pressure control mode with PEEP 8, respiratory rate 22, FiO2 40%, making VT of 740 mL Acute Hypoxic respiratory failure, likely due to pneumonia Septic shock likely due to pneumonia Pneumonia due to MRSA Bronchoscopy performed on 09/07 shows lots of secretion on the left main bronchus, bronchial lavage results shows MRSA Bronchoscopy was repeated on 09/08, shows less mucus secretion in compared to previous bronchoscopy Blood culture from 09/02/2024 shows staph hominis sensitive to vancomycin Sputum culture from 09/02/2024 shows MRSA, Streptococcus pneumoniae vancomycin Influenza and COVID-19 screening negative Blood culture from 09/11 shows Staphylococcus epidermidis, sensitive to vancomycin Can maintain saturation at 93% with 45% FiO2 Secretion was bilateral infiltration Continue N-acetylcysteine Continue breathing treatment Increased dose of ceftriaxone from 1 g to 2 g daily on 09/13 Discontinued linezolid, used for 6 days Breathing treatment q.4 hours as needed CPAP trial tomorrow GI: Patient has history of multiple surgery of hernia(2015) and bowel obstruction(2019) Abdominal ventral hernias, abdominal CT scan shows multiple ventral wall hernias containing fat and bowel with mild dilatation of proximal jejunum loops with jejunal loops course into the abdominal hernia Possible bowel obstruction, surgery consulted, recommended conservative management, suggested that small bowel series could not perform at the moment due to respiratory status of the patient Transaminitis, likely ischemic secondary to septic shock Patient had 2 large bowel movement last night Bowel regimen: Docusate GI ppx: Protonix RENAL: FEDE , likely hemodynamically mediated, improving Nephrology on the board, last HD session on 09/10 Renal function improving Possible rhabdomyolysis, likely due to immobilization Creatinine kinase is raised at 8215, downtrending Monitoring ENDOCRINE: Hypertriglyceridemia, TG 623 09/04, 320 at 09/15 Likely due to propofol, discontinued propofol Continue Atorvastatin 40 mg ID: Sputum cultures from 09/02/2024 shows MRSA, Streptococcus pneumoniae Blood culture from 09/02/2024 shows Staph hominis Results from bronchial washing, from 09/07/2024 shows no growth after 24 hours ID on the board, suggested that the culture results are probably due to contamination and recommended to repeat the culture Repeat blood culture Possible PID Patient had purulent vaginal discharge Vaginal bacterial culture, shows coagulase-negative Staphylococcus with few growth of possible Enterococcus species Metabolic: Hyperkalemia, improved Hyponatremia, improved Hypokalemia, supplemented Hypomagnesemia, supplemented Hypernatremia, monitoring Multidrug abuser: Per patient's daughter, she is a current user of amphetamine, marijuana and smoking cigarettes Hepatitis B and C serology negative Check HIV Heme: DVT Doppler ultrasound of lower limb at 08/15 shows, nonocclusive DVT at left popliteal vein Lovenox 100 mg b.i.d. LINES/DRAINS/ACCESS: ETT, intubated on 09/02/2024 IV access Left upper arm PICC line, placed on 09/13 Drips: Versed 5 Fentanyl to 225 Levophed 0 DVT ppx: Therapeutic dose of Lovenox DIET: Jevity 30 mL/hour CODE STATUS: Full code Patient's status was updated with the patient's daughter on the phone. Critical time spent more than 83 minutes, including patient care, chart review and updating the family, excluding any procedures. Case discussed with Dr. Beck Plan discussed with: Patient, Daughter, Other (RN) My Orders My Orders Orders - DAVID RIDDLE RESDIRAYMOND Procedure Category Date Status Time Ventilator Orders RT 09/17/24 Transmitted 14:37 Abg W/ Co-Ox RT 09/17/24 Logged 14:50 Cpap Trial For Am ORDERS 09/17/24 Transmitted 17:02 Communication Order ORDERS 09/17/24 Transmitted 17:02 Comprehensive LAB 09/18/24 Verified Metabolic Panel 04:00 Complete Blood Count LAB 09/18/24 Verified 04:00 Chest Xray 1 View XY 09/18/24 Logged 04:00 Abg W/ Co-Ox RT 09/18/24 Logged 04:00 Enoxaparin Sodium PHA 09/17/24 In Process (Lovenox) 22:00 Dietary Evaluation Review Comments: 1. Consider EN/TPN if NPO >7days 2. Continue plan of care Expected Outcomes/Goals: 1. Pt will meet >75% of estimated needs within 2-3 days Date of Service: Sep 17, 2024 Billing Provider: IVAN BECK MD Common Visit Codes: 42623-[id number] CARE 30-74 MIN DAVID RIDDLE RESDIRAYMOND Sep 17, 2024 20:52 IVAN BECK MD Sep 24, 2024 14:43
--- NOTE | 2024-09-17 21:02 | DVHPN2 ---
Progress Note - Dictate Date Seen: Sep 17, 2024 Has the PT tested + for MRSA If YES, has PT been informed?: Yes Medical Necessity Reason Pt with a Central, PICC or Fol: Yes The following are medically ne: Betancourt Catheter Reason for betancourt catheter: Strict I&O Subjective Patient was seen and evaluated in follow up in the ICU. Patient is intubated and sedated on ventilator. 45% FiO2. Patient is receiving TFs. Patient is pending CPAP trial once patient's FiO2 is below 40%. NA 147, CL 110, BUN 72, MOTION GRAPHICS DESIGNER 1.49, AST 71, ALT 62. vital signs Vital Sign Date Time Temp Pulse Resp B/P (MAP) Pulse Ox O2 Delivery O2 Flow Rate FiO2 09/17/24 10:00 87 09/17/24 10:00 45 09/17/24 10:00 22 97 Mechanical Ventilator+ 09/17/24 09:56 107/71 (83) 09/17/24 04:00 99.2 99.2 Total Intake and Output 09/16/24 09/16/24 09/17/24 15:00 23:00 07:00 Intake Total 812.0 ml 336.0 ml 602.0 ml Output Total 775 ml 1100 ml Balance 812.0 ml -439.0 ml -498.0 ml medications Current Medications Medications Dose Ordered Sig/Acacia Route Start Time Stop Time Status Last Admin Dose Admin Albuterol 2.5 mg Q4HWA PRN NEB 09/02/24 18:30 09/17/24 09:56 2.5 MG Ipratropium [place] 0.5 mg Q4HWA PRN NEB 09/02/24 18:30 09/17/24 09:56 0.5 MG Acetaminophen 650 mg Q4HP PRN GT 09/03/24 10:00 09/03/24 10:21 650 MG Norepinephrine Bitartrate 32 mg/ Sodium Chloride 250 ml @ 0.938 mls/ hr Q24H IV 09/03/24 12:30 09/13/24 20:42 1.875 MLS/HR Pantoprazole Sodium 40 mg DAILY IV 09/04/24 10:00 09/17/24 09:34 40 MG Docusate Sodium 200 mg BID NG 09/06/24 22:00 09/17/24 09:34 200 MG Acetylcysteine 200 mg Q8HR NEB 09/07/24 14:00 09/17/24 06:20 200 MG Atorvastatin Calcium 40 mg HS PO 09/07/24 22:00 09/16/24 21:22 40 MG Enteral Nutritional Formula 1,000 ml 30ML/HR GT 09/10/24 13:15 09/15/24 22:43 1,000 ML Midazolam HCl 50 ml @ 1 mls/hr Q24H IV 09/10/24 14:45 09/17/24 11:22 9 MLS/HR Linezolid 300 ml @ 150 mls/hr Q12HR IV 09/11/24 22:00 09/17/24 09:44 150 MLS/HR Ceftriaxone Sodium/Dextrose 50 ml @ 50 mls/hr DAILY IV 09/14/24 10:00 09/17/24 09:35 50 MLS/HR Sodium Chloride 10 ml QSHIFT@10,22 IV 09/13/24 22:00 09/17/24 09:35 10 ML Fentanyl Citrate 250 ml @ 2.5 mls/hr Q24H IV 09/14/24 07:30 09/17/24 07:46 17.5 MLS/HR Enoxaparin Sodium 60 mg Q12HR SC 09/15/24 22:00 09/17/24 09:35 60 MG Metoclopramide HCl 5 mg Q8HR IV 09/15/24 14:00 09/17/24 05:45 5 MG objective GENERAL: Intubated on ventilator. Morbidly obese LUNGS: Decreased breath sounds. CARDIOVASCULAR: Heart sounds are good. ABDOMEN: Soft. Morbid pannus limited physical palpation. SKIN: Multiple scars to abdomen. Two open areas on abdomen with oozing wounds. laboratory and microbiology Laboratory Tests 09/17/24 03:27 Test 09/17/24 03:27 Range/Units Serum Glucose 111 H 74-106 mg/dL Problem List Septic shock. Acute on chronic respiratory failure. NSTEMI type II secondary to above. Rule out structural heart disease. Prolonged QT interval. Morbid obesity, Class 3. Assessment/Plan Continued all current supportive medical care. IV antibiotics as ordered. Vasopressors for hemodynamic support. GI prophylactics. Additional plan as per the hospital course. Critical care time of 45 minutes provided to include time spent evaluation of patient at bedside, when appropriate patient/family education for diagnosis, treatment plan, review of pertinent medical information and discussion of care with specialty providers and PCP. Mechanical ventilator parameters, treatment and adjustments have personally been reviewed by me and treatment plan by derrick worker well service has also been reviewed. Dietary Evaluation Review Comments: 1. Consider EN/TPN if NPO >7days 2. Continue plan of care Expected Outcomes/Goals: 1. Pt will meet >75% of estimated needs within 2-3 days Plan discussed with: Other RELL STEWART MD Sep 17, 2024 11:42
[2024-09-17] MEDS: ENOXAPARIN SOD 100 MG/1 ML SYRINGE SC SCH (22:03)
[2024-09-17] MEDS: MAGNESIUM SULFATE 1GM/100ML 100 ML IV ONE (23:32)
[2024-09-17] MEDS: POTASSIUM CHL 20MEQ/100ML 100 ML IV SCH (23:32)
[2024-09-18] VITALS (107 sets, daily range): BP systolic 94–172; BP diastolic 56–89; PULSE 46–106; RESP 9–25; TEMP 99–99.3; O2SAT 91–100
[2024-09-18 03:53] LABS: Basophils # (auto) 0.2 10 ^3/uL (0-0.2); Basophils % (auto) 1.5 % (0.0-2.0); Eosinophils # (auto) 0.2 10 ^3/uL (0-0.8); Eosinophils % (auto) 1.6 % (0.0-7.0); Hematocrit 31.2 % (36.0-46.0); Hemoglobin 10.5 g/dL (12.2-16.2); Lymphocytes # (auto) 1.2 10 ^3/uL (0.4-5.4); Lymphocytes % (auto) 8.3 % (10.0-50.0); Mean Corpuscular Hgb Conc. 33.5 g/dL (32.0-36.0); Mean Corpuscular Volume 89.4 fL (80.0-100.0); Monocytes # (auto) 1.3 10 ^3/uL (0-1.3); Monocytes % (auto) 9.3 % (0.0-12.0); Neutrophils # (auto) 11.3 10 ^3/uL (1.6-8.6); Neutrophils % (auto) 79.3 % (37.0-80.0); Platelet Count (auto) 345 10^3/uL (140-450); Red Blood Cells 3.49 10^6/uL (4.0-5.20); Red Cell Distribution Width 13.8 % (11.8-14.3); White Blood Cell 14.3 10^3/uL (4.4-10.8)
[2024-09-18 04:01] LABS: Albumin 3.5 g/dL (3.2-4.8); Alkaline Phosphatase 105 U/L (46-116); Anion Gap 9 (5-15); BUN/Creatinine Ratio 49.6 (10.0-20.0); Calcium 10.2 mg/dL (8.7-10.4); Carbon Dioxide 28 mmol/L (20-31); Potassium 4.2 mmol/L (3.5-5.1)
[2024-09-18 04:02] LABS: Bilirubin, Total 0.5 mg/dL (0.2-1.0); Total Protein 6.6 g/dL (5.7-8.2)
[2024-09-18 04:14] LABS: Alanine Aminotransferase 74 U/L (7-40); Aspartate Aminotransferase 67 U/L (13-40); Blood Urea Nitrogen 62 mg/dL (9-23); Chloride 114 mmol/L (98-107); Glucose 107 mg/dL (74-106); Sodium 151 mmol/L (136-145)
--- NOTE | 2024-09-18 04:17 | DVH ---
CHEST RADIOGRAPH Indication: Pneumonia Technique: Single frontal view of the chest was obtained Comparison: XY CHEST XRAY 1 VIEW on DOS: 09/17/24, XY CHEST XRAY 1 VIEW on DOS: 09/16/24, XY CHEST XRAY 1 VIEW on DOS: 09/15/24 IMPRESSION: There are low lung volumes. Support lines and tubes appear unchanged in satisfactory position. Small bilateral pleural effusions with mild pulmonary vascular congestion. No pneumothorax.
[2024-09-18 08:09] LABS: Base Excess 0.7 mmol/L (-2.0-3.0)
--- NOTE | 2024-09-18 12:57 | DVHPN2 ---
Progress Note - Dictate Date Seen: Sep 18, 2024 Has the PT tested + for MRSA If YES, has PT been informed?: Yes Medical Necessity Reason Pt with a Central, PICC or Fol: Yes The following are medically ne: Betancourt Catheter Reason for betancourt catheter: Strict I&O Subjective Patient was seen and evaluated in follow up in the ICU. Patient is intubated and sedated on ventilator. 45% FiO2. Patient has increased urine output. NA 151, CL 114, BUN 62, WATERPROOFER 1.25, AST 67, ALT 74. Chest x-ray shows small bilateral pleural effusions with mild pulmonary vascular congestion. vital signs Vital Sign Date Time Temp Pulse Resp B/P (MAP) Pulse Ox O2 Delivery O2 Flow Rate FiO2 09/18/24 10:50 97 18 118/69 (85) 96 45 09/18/24 10:00 Mechanical Ventilator+ 09/18/24 00:00 99.2 99.2 Total Intake and Output 09/17/24 09/17/24 09/18/24 15:00 23:00 07:00 Intake Total 562.0 ml 436.5 ml 310.5 ml Output Total 1000 ml 1100 ml Balance 562.0 ml -563.5 ml -789.5 ml medications Current Medications Medications Dose Ordered Sig/[place] Route Start Time Stop Time Status Last Admin Dose Admin Albuterol 2.5 mg Q4HWA PRN NEB 09/02/24 18:30 09/18/24 07:00 2.5 MG Ipratropium [place] 0.5 mg Q4HWA PRN NEB 09/02/24 18:30 09/18/24 07:00 0.5 MG Acetaminophen 650 mg Q4HP PRN GT 09/03/24 10:00 09/03/24 10:21 650 MG Norepinephrine Bitartrate 32 mg/ Sodium Chloride 250 ml @ 0.938 mls/ hr Q24H IV 09/03/24 12:30 09/13/24 20:42 1.875 MLS/HR Pantoprazole Sodium 40 mg DAILY IV 09/04/24 10:00 09/18/24 11:07 40 MG Docusate Sodium 200 mg BID NG 09/06/24 22:00 09/17/24 22:02 200 MG Acetylcysteine 200 mg Q8HR NEB 09/07/24 14:00 09/18/24 07:00 200 MG Atorvastatin Calcium 40 mg HS PO 09/07/24 22:00 09/17/24 22:02 40 MG Enteral Nutritional Formula 1,000 ml 30ML/HR GT 09/10/24 13:15 09/15/24 22:43 1,000 ML Midazolam HCl 50 ml @ 1 mls/hr Q24H IV 09/10/24 14:45 09/18/24 01:45 5 MLS/HR Ceftriaxone Sodium/Dextrose 50 ml @ 50 mls/hr DAILY IV 09/14/24 10:00 09/18/24 11:07 50 MLS/HR Sodium Chloride 10 ml QSHIFT@10,22 IV 09/13/24 22:00 09/18/24 11:08 10 ML Fentanyl Citrate 250 ml @ 2.5 mls/hr Q24H IV 09/14/24 07:30 09/17/24 19:48 15 MLS/HR Metoclopramide HCl 5 mg Q8HR IV 09/15/24 14:00 09/18/24 06:27 5 MG Enoxaparin Sodium 100 mg Q12HR SC 09/17/24 22:00 09/18/24 11:07 100 MG objective GENERAL: Intubated on ventilator. Morbidly obese LUNGS: Decreased breath sounds. CARDIOVASCULAR: Heart sounds are good. ABDOMEN: Soft. Morbid pannus limited physical palpation. SKIN: Multiple scars to abdomen. Two open areas on abdomen with oozing wounds. laboratory and microbiology Laboratory Tests 09/18/24 03:29 Test 09/18/24 03:29 Range/Units Serum Glucose 107 H 74-106 mg/dL Problem List Septic shock. Acute on chronic respiratory failure. NSTEMI type II secondary to above. Rule out structural heart disease. Prolonged QT interval. Morbid obesity, Class 3. Assessment/Plan Continued all current supportive medical care. IV antibiotics as ordered. Vasopressors for hemodynamic support. GI prophylactics. Additional plan as per the hospital course. Critical care time of 45 minutes provided to include time spent evaluation of patient at bedside, when appropriate patient/family education for diagnosis, treatment plan, review of pertinent medical information and discussion of care with specialty providers and PCP. Mechanical ventilator parameters, treatment and adjustments have personally been reviewed by me and treatment plan by assembler body has also been reviewed. Dietary Evaluation Review Comments: 1. Consider EN/TPN if NPO >7days 2. Continue plan of care Expected Outcomes/Goals: 1. Pt will meet >75% of estimated needs within 2-3 days Plan discussed with: Other RELL STEWART MD Sep 18, 2024 11:49
--- NOTE | 2024-09-18 12:57 | DVHPN2 ---
Progress Note - Dictate Date Seen: Sep 18, 2024 Has the PT tested + for MRSA If YES, has PT been informed?: Yes Medical Necessity Reason Pt with a Central, PICC or Fol: Yes The following are medically ne: Betancourt Catheter Reason for betancourt catheter: Strict I&O Subjective remains intubated vital signs Vital Sign Date Time Temp Pulse Resp B/P (MAP) Pulse Ox O2 Delivery O2 Flow Rate FiO2 09/18/24 12:20 95 18 121/70 (87) 97 45 09/18/24 10:00 Mechanical Ventilator+ 09/18/24 00:00 99.2 99.2 Total Intake and Output 09/17/24 09/17/24 09/18/24 15:00 23:00 07:00 Intake Total 562.0 ml 436.5 ml 310.5 ml Output Total 1000 ml 1100 ml Balance 562.0 ml -563.5 ml -789.5 ml medications Current Medications Medications Dose Ordered Sig/[place] Route Start Time Stop Time Status Last Admin Dose Admin Albuterol 2.5 mg Q4HWA PRN NEB 09/02/24 18:30 09/18/24 07:00 2.5 MG Ipratropium [place] 0.5 mg Q4HWA PRN NEB 09/02/24 18:30 09/18/24 07:00 0.5 MG Acetaminophen 650 mg Q4HP PRN GT 09/03/24 10:00 09/03/24 10:21 650 MG Norepinephrine Bitartrate 32 mg/ Sodium Chloride 250 ml @ 0.938 mls/ hr Q24H IV 09/03/24 12:30 09/13/24 20:42 1.875 MLS/HR Pantoprazole Sodium 40 mg DAILY IV 09/04/24 10:00 09/18/24 11:07 40 MG Docusate Sodium 200 mg BID NG 09/06/24 22:00 09/17/24 22:02 200 MG Acetylcysteine 200 mg Q8HR NEB 09/07/24 14:00 09/18/24 07:00 200 MG Atorvastatin Calcium 40 mg HS PO 09/07/24 22:00 09/17/24 22:02 40 MG Enteral Nutritional Formula 1,000 ml 30ML/HR GT 09/10/24 13:15 09/15/24 22:43 1,000 ML Midazolam HCl 50 ml @ 1 mls/hr Q24H IV 09/10/24 14:45 09/18/24 01:45 5 MLS/HR Ceftriaxone Sodium/Dextrose 50 ml @ 50 mls/hr DAILY IV 09/14/24 10:00 09/18/24 11:07 50 MLS/HR Sodium Chloride 10 ml QSHIFT@10,22 IV 09/13/24 22:00 09/18/24 11:08 10 ML Fentanyl Citrate 250 ml @ 2.5 mls/hr Q24H IV 09/14/24 07:30 09/17/24 19:48 15 MLS/HR Metoclopramide HCl 5 mg Q8HR IV 09/15/24 14:00 09/18/24 06:27 5 MG Enoxaparin Sodium 100 mg Q12HR SC 09/17/24 22:00 09/18/24 11:07 100 MG Dexmedetomidine HCl 400 mcg/ Dextrose 100 ml @ 5.555 mls/ hr Q18H1M IV 09/18/24 11:45 objective gen: intubated lungs: occ ronchi cvs: no rub ext: no sigifnicant edema laboratory and microbiology Laboratory Tests 09/18/24 03:29 Test 09/18/24 03:29 Range/Units Serum Glucose 107 H 74-106 mg/dL Assessment/Plan IMP: 1) Hemodynamically mediated FEDE/VMN setting of shock - resolving 2) CKD stage IIIA? 3) shock with multiorgan involvement 4) history of PE 5) leukocytosis 6) bacteremia REC: - hypotonic IV fluids, serum sodium up trending slightly - We will continue to follow - Removal of dialysis catheter (if not already removed), discussed with patients GLOBAL CLINICAL LEADER Dietary Evaluation Review Comments: 1. Consider EN/TPN if NPO >7days 2. Continue plan of care Expected Outcomes/Goals: 1. Pt will meet >75% of estimated needs within 2-3 days Plan discussed with: Other PERICO CASAREZ MD Sep 18, 2024 12:57
[2024-09-18] MEDS: SOD CHL 0.45% 1,000 ML IV SCH (14:37)
--- NOTE | 2024-09-18 16:16 | DVHPN2 ---
Subjective 63 yo morbidly obese with past history of pulmonary emboli, knee surgery (2016) ,multiple (6) abdominal surgery for hernia (2016) and bowel obstruction (2019) and multiple drug abuse brought to the hospital with shortness of breaths. Admitted and intubated on 09/02. Today, Patient seen examined at the bedside. Patient is sedated and on mechanical ventilation. Review of system could not obtain. Chest x-ray shows bilateral small pleural effusion, with bilateral basilar atelectasis, seem to previous film. Reviewed: Care Plan, H&P, Labs, Medications, Previous Orders, Radiology, Other (Consultants) Changes from previous H/P or p: No Changes Objective Vitals Vital Signs Date Time Temp Pulse Resp B/P (MAP) Pulse Ox O2 Delivery O2 Flow Rate FiO2 09/18/24 15:30 100 12 134/82 (99) 96 09/18/24 15:19 45 09/18/24 14:00 Mechanical Ventilator+ 09/18/24 12:15 99.2 99.2 Intake/Output Intake and Output 09/18/24 05:00 Intake Total 1356.5 ml Output Total 2100 ml Balance -743.5 ml Intake Oral 120 ml IV Total 858.5 ml Tube Feeding 378 ml Output Urine Total 2100 ml General Appearance: Other (Sedated and intubated) HEENT: Atraumatic, PERRLA Lungs: Other (Crackles bilateral lungs) Cardiovascular: Regular rate Abdomen: Other Extremities: Other (Decreased edema bilateral lower extremities/skin shrinkage) Medications Current Medications Medications Dose Ordered Sig/[place] Route Start Time Stop Time Status Last Admin Dose Admin Albuterol 2.5 mg Q4HWA PRN NEB 09/02/24 18:30 09/18/24 14:16 2.5 MG Ipratropium [place] 0.5 mg Q4HWA PRN NEB 09/02/24 18:30 09/18/24 14:16 0.5 MG Acetaminophen 650 mg Q4HP PRN GT 09/03/24 10:00 09/03/24 10:21 650 MG Norepinephrine Bitartrate 32 mg/ Sodium Chloride 250 ml @ 0.938 mls/ hr Q24H IV 09/03/24 12:30 09/13/24 20:42 1.875 MLS/HR Pantoprazole Sodium 40 mg DAILY IV 09/04/24 10:00 09/18/24 11:07 40 MG Docusate Sodium 200 mg BID NG 09/06/24 22:00 09/17/24 22:02 200 MG Acetylcysteine 200 mg Q8HR NEB 09/07/24 14:00 09/18/24 14:16 200 MG Atorvastatin Calcium 40 mg HS PO 09/07/24 22:00 09/17/24 22:02 40 MG Enteral Nutritional Formula 1,000 ml 30ML/HR GT 09/10/24 13:15 09/15/24 22:43 1,000 ML Midazolam HCl 50 ml @ 1 mls/hr Q24H IV 09/10/24 14:45 09/18/24 01:45 5 MLS/HR Sodium Chloride 10 ml QSHIFT@10,22 IV 09/13/24 22:00 09/18/24 11:08 10 ML Fentanyl Citrate 250 ml @ 2.5 mls/hr Q24H IV 09/14/24 07:30 09/17/24 19:48 15 MLS/HR Metoclopramide HCl 5 mg Q8HR IV 09/15/24 14:00 09/18/24 14:37 5 MG Enoxaparin Sodium 100 mg Q12HR SC 09/17/24 22:00 09/18/24 11:07 100 MG Dexmedetomidine HCl 400 mcg/ Dextrose 100 ml @ 5.555 mls/ hr Q18H1M IV 09/18/24 11:45 Sodium Chloride 1,000 ml @ 100 mls/hr Q10H IV 09/18/24 13:00 09/18/24 14:37 100 MLS/HR Laboratory Results Laboratory Tests 09/18/24 03:29 Chemistry Test 09/18/24 03:29 Albumin 3.5 g/dL (3.2-4.8) Calcium Level 10.2 mg/dL (8.7-10.4) Total Protein 6.6 g/dL (5.7-8.2) LFT Test 09/18/24 03:29 Alanine Aminotransferase (ALT) 74 U/L (7-40) H Alkaline Phosphatase 105 U/L (46-116) Aspartate Amino Transferase (AST) 67 U/L (13-40) H Total Bilirubin 0.5 mg/dL (0.2-1.0) Urinalysis Test 09/04/24 14:26 09/11/24 00:00 Urine Amorphous Crystals Few /hpf (None Seen) Urine Creatinine 148.33 mg/dL (30.0-125.0) H Urine Sodium 24 mmol/L (40-220) L Urine Total Protein 253.7 mg/dL (1-14) H Urine Color Light-orange (Yellow) Urine Clarity Ex.turbid (Clear) Urine pH 5.5 (5.0-9.0) Urine Specific [place] 1.016 (1.001-1.035) Urine Protein 1+ (Negative) H Urine Ketones Negative (Negative) Urine Blood 2+ /uL (Negative) H Urine Nitrite Negative (Negative) Urine Bilirubin Negative (Negative) Urine Urobilinogen Normal mg/dL (Negative) Urine Leukocyte Esterase Negative /uL (Negative) Urine RBC 20 /hpf (0 - 4) Urine WBC 40 /hpf (0 - 5) Urine Squamous Epithelial Cells Mod /hpf (<5) Urine Bacteria Few /hpf (None Seen) H Urine Mucus Few (None Seen) Urine Glucose Normal mg/dL (Normal) Blood Gas Results Test 09/18/24 07:59 Arterial Blood pH 7.472 (7.350-7.450) FiO2 % 45.0 Microbiology Microbiology Date/Time Source Procedure Growth Status 09/11/24 14:35 Blood Blood Culture - Final Staphylococcus epidermidis Complete 09/11/24 00:00 Voided Urine Urine Culture - Final Complete 09/08/24 14:33 Bronchial Washings Gram Stain - Final Complete 09/08/24 14:33 Bronchial Washings Respiratory Culture - Final Complete 09/06/24 13:00 Vaginal Vaginal Culture - Final Enterococcus faecalis Methicillin Resistant S.aureus Complete 09/04/24 20:40 Nose MRSA Screen - Final Complete Assessment/Plan Assessment/Plan NEURO: Acute metabolic encephalopathy likely due to septic shock Patient is sedated and on mechanical ventilation with RASS score -5 CARDIOVASCULAR: NSTEMI type 2 likely due to septic shock Has history of pulmonary emboli in 2016 Cardiology on the board, recommended conservative management Echocardiogram shows mild LVH with mild LV diastolic dysfunction with ejection fraction of 65 PULMONARY: Patient is sedated and on mechanical ventilation with pressure control mode with PEEP 8, respiratory rate 22, FiO2 40%, making VT of 740 mL Acute Hypoxic respiratory failure, likely due to pneumonia Septic shock likely due to pneumonia Pneumonia due to MRSA Bronchoscopy performed on 09/07 shows lots of secretion on the left main bronchus, bronchial lavage results shows MRSA Bronchoscopy was repeated on 09/08, shows less mucus secretion in compared to previous bronchoscopy Blood culture from 09/02/2024 shows staph hominis sensitive to vancomycin Sputum culture from 09/02/2024 shows MRSA, Streptococcus pneumoniae vancomycin Influenza and COVID-19 screening negative Blood culture from 09/11 shows Staphylococcus epidermidis, sensitive to vancomycin Can maintain saturation at 93% with 45% FiO2 Secretion was bilateral infiltration Continue N-acetylcysteine Continue breathing treatment Increased dose of ceftriaxone from 1 g to 2 g daily on 09/13 Discontinued linezolid, used for 6 days Breathing treatment q.4 hours as needed CPAP trial tomorrow GI: Patient has history of multiple surgery of hernia(2015) and bowel obstruction(2019) Abdominal ventral hernias, abdominal CT scan shows multiple ventral wall hernias containing fat and bowel with mild dilatation of proximal jejunum loops with jejunal loops course into the abdominal hernia Possible bowel obstruction, surgery consulted, recommended conservative management, suggested that small bowel series could not perform at the moment due to respiratory status of the patient Transaminitis, likely ischemic secondary to septic shock Patient had 2 large bowel movement last night Bowel regimen: Docusate GI ppx: Protonix RENAL: FEDE , likely hemodynamically mediated, improving Nephrology on the board, last HD session on 09/10 Renal function improving Possible rhabdomyolysis, likely due to immobilization Creatinine kinase is raised at 8215, downtrending Monitoring ENDOCRINE: Hypertriglyceridemia, TG 623 09/04, 320 at 09/15 Likely due to propofol, discontinued propofol Continue Atorvastatin 40 mg ID: Sputum cultures from 09/02/2024 shows MRSA, Streptococcus pneumoniae Blood culture from 09/02/2024 shows Staph hominis Results from bronchial washing, from 09/07/2024 shows no growth after 24 hours ID on the board, suggested that the culture results are probably due to contamination and recommended to repeat the culture Repeat blood culture Possible PID Patient had purulent vaginal discharge Vaginal bacterial culture, shows coagulase-negative Staphylococcus with few growth of possible Enterococcus species Metabolic: Hyperkalemia, improved Hyponatremia, improved Hypokalemia, supplemented Hypomagnesemia, supplemented Hypernatremia, monitoring Multidrug abuser: Per patient's daughter, she is a current user of amphetamine, marijuana and smoking cigarettes Hepatitis B and C serology negative Check HIV Heme: DVT Doppler ultrasound of lower limb at 08/15 shows, nonocclusive DVT at left popliteal vein Lovenox 100 mg b.i.d. LINES/DRAINS/ACCESS: ETT, intubated on 09/02/2024 IV access Left upper arm PICC line, placed on 09/13 Drips: Versed 5 Fentanyl to 225 Levophed 0 DVT ppx: Therapeutic dose of Lovenox DIET: Jevity 30 mL/hour CODE STATUS: Full code Patient's status was updated with the patient's daughter on the phone. Critical time spent more than 83 minutes, including patient care, chart review and updating the family, excluding any procedures. Plan discussed with: Other (nurse) Date of Service: Sep 18, 2024 Billing Provider: TALI LARA MD Common Visit Codes: [id number]-[id number] CARE 30-74 MIN TALI LARA MD Sep 18, 2024 16:16
--- NOTE | 2024-09-18 16:28 | DVHPN2 ---
Progress Note - Dictate Date Seen: Sep 18, 2024 Has the PT tested + for MRSA If YES, has PT been informed?: Yes Medical Necessity Reason Pt with a Central, PICC or Fol: Yes The following are medically ne: Betancourt Catheter Reason for betancourt catheter: Strict I&O Subjective She is sedated and intubated on mechanical ventilation. No new acute complaints noted. Patient placed on CPAP. White count trending down, currently at 14.3. 09/18, Chest x-ray: There are low lung volumes. Support lines and tubes appear unchanged in satisfactory position. Small bilateral pleural effusions with mild pulmonary vascular congestion. No pneumothorax. vital signs Vital Sign Date Time Temp Pulse Resp B/P (MAP) Pulse Ox O2 Delivery O2 Flow Rate FiO2 09/18/24 15:30 100 12 134/82 (99) 96 09/18/24 15:19 45 09/18/24 14:00 Mechanical Ventilator+ 09/18/24 12:15 99.2 99.2 Total Intake and Output 09/17/24 09/17/24 09/18/24 15:00 23:00 07:00 Intake Total 562.0 ml 436.5 ml 318.5 ml Output Total 1000 ml 1100 ml Balance 562.0 ml -563.5 ml -781.5 ml medications Current Medications Medications Dose Ordered Sig/[place] Route Start Time Stop Time Status Last Admin Dose Admin Albuterol 2.5 mg Q4HWA PRN NEB 09/02/24 18:30 09/18/24 14:16 2.5 MG Ipratropium [place] 0.5 mg Q4HWA PRN NEB 09/02/24 18:30 09/18/24 14:16 0.5 MG Acetaminophen 650 mg Q4HP PRN GT 09/03/24 10:00 09/03/24 10:21 650 MG Norepinephrine Bitartrate 32 mg/ Sodium Chloride 250 ml @ 0.938 mls/ hr Q24H IV 09/03/24 12:30 09/13/24 20:42 1.875 MLS/HR Pantoprazole Sodium 40 mg DAILY IV 09/04/24 10:00 09/18/24 11:07 40 MG Docusate Sodium 200 mg BID NG 09/06/24 22:00 09/17/24 22:02 200 MG Acetylcysteine 200 mg Q8HR NEB 09/07/24 14:00 09/18/24 14:16 200 MG Atorvastatin Calcium 40 mg HS PO 09/07/24 22:00 09/17/24 22:02 40 MG Enteral Nutritional Formula 1,000 ml 30ML/HR GT 09/10/24 13:15 09/15/24 22:43 1,000 ML Midazolam HCl 50 ml @ 1 mls/hr Q24H IV 09/10/24 14:45 09/18/24 01:45 5 MLS/HR Sodium Chloride 10 ml QSHIFT@10,22 IV 09/13/24 22:00 09/18/24 11:08 10 ML Fentanyl Citrate 250 ml @ 2.5 mls/hr Q24H IV 09/14/24 07:30 09/17/24 19:48 15 MLS/HR Metoclopramide HCl 5 mg Q8HR IV 09/15/24 14:00 09/18/24 14:37 5 MG Enoxaparin Sodium 100 mg Q12HR SC 09/17/24 22:00 09/18/24 11:07 100 MG Dexmedetomidine HCl 400 mcg/ Dextrose 100 ml @ 5.555 mls/ hr Q18H1M IV 09/18/24 11:45 Sodium Chloride 1,000 ml @ 100 mls/hr Q10H IV 09/18/24 13:00 09/18/24 14:37 100 MLS/HR objective General: Intubated and sedated HEENT: Atraumatic,intubated Neck: No swelling Lungs: Equal air entry and clear to auscultation Cardiovascular: S1 S2 heard no murmur Abdomen: Soft nontender, no organomegaly, nondistended Neuro: sedated, unable to assess Psych: unable to assess laboratory and microbiology Laboratory Tests 09/18/24 03:29 Test 09/18/24 03:29 Range/Units Serum Glucose 107 H 74-106 mg/dL Assessment/Plan Patient is a 63-year-old female presented to the hospital with: Staphylococcus aureus pneumonia ( MRSA) Streptococcus Pneumoniae pneumonia Septic shock resolving bacteremia : coag neg staphylococccus Acute Respiratory Failure [requiring mechanical ventilation] severe hypoxia Metabolic acidosis FEDE Morbidly obese BMI = 40 PE history Recommendations: antibiotics review Cefepime 09/02- 09/06 Meropenem 09/03-09/05 Ceftriaxone 09/07-ongoing Vancomycin 09/03- 09/11 Linezolid 09/11- ongoing overall, patient has received rx for MRSA pneumonia from 09/03 until now. total 14 days, plan to dc antibiotics respiratory status is stable on vent. Blood culture:co ag neg staph, i think its contaminated. Recent on 09/07 showed no growth 09/11 : show Gram Positive Cocci in clusters Pulmonary on board for vent management full code prognosis guarded crit time 35 mins spent during the encounter. Thank you for consult and for giving an opportunity to take care of this patient. Dietary Evaluation Review Comments: 1. Consider EN/TPN if NPO >7days 2. Continue plan of care Expected Outcomes/Goals: 1. Pt will meet >75% of estimated needs within 2-3 days Plan discussed with: ANGELLA Peng MD Sep 18, 2024 16:28
[2024-09-18 16:33] LABS: Base Excess 0.9 mmol/L (-2.0-3.0)
--- NOTE | 2024-09-18 22:35 | DVHPN2 ---
Progress Note - Dictate Date Seen: Sep 18, 2024 Has the PT tested + for MRSA If YES, has PT been informed?: Yes Medical Necessity Reason Pt with a Central, PICC or Fol: Yes The following are medically ne: Betancourt Catheter Reason for betancourt catheter: Strict I&O Subjective Patient seen and examined at bedside. Sedated, intubated on mechanical ventilator. Overnight events reviewed. vital signs Vital Sign Date Time Temp Pulse Resp B/P (MAP) Pulse Ox O2 Delivery O2 Flow Rate FiO2 09/18/24 22:23 45 09/18/24 22:23 84 09/18/24 22:23 22 99 Mechanical Ventilator+ 09/18/24 22:15 138/78 (98) 09/18/24 20:30 99.0 99.0 Total Intake and Output 09/17/24 09/17/24 09/18/24 15:00 23:00 07:00 Intake Total 562.0 ml 436.5 ml 318.5 ml Output Total 1000 ml 1100 ml Balance 562.0 ml -563.5 ml -781.5 ml medications Current Medications Medications Dose Ordered Sig/[place] Route Start Time Stop Time Status Last Admin Dose Admin Albuterol 2.5 mg Q4HWA PRN NEB 09/02/24 18:30 09/18/24 14:16 2.5 MG Ipratropium [place] 0.5 mg Q4HWA PRN NEB 09/02/24 18:30 09/18/24 14:16 0.5 MG Acetaminophen 650 mg Q4HP PRN GT 09/03/24 10:00 09/03/24 10:21 650 MG Norepinephrine Bitartrate 32 mg/ Sodium Chloride 250 ml @ 0.938 mls/ hr Q24H IV 09/03/24 12:30 09/13/24 20:42 1.875 MLS/HR Pantoprazole Sodium 40 mg DAILY IV 09/04/24 10:00 09/18/24 11:07 40 MG Docusate Sodium 200 mg BID NG 09/06/24 22:00 09/18/24 21:30 200 MG Acetylcysteine 200 mg Q8HR NEB 09/07/24 14:00 09/18/24 14:16 200 MG Atorvastatin Calcium 40 mg HS PO 09/07/24 22:00 09/18/24 21:31 40 MG Enteral Nutritional Formula 1,000 ml 30ML/HR GT 09/10/24 13:15 09/18/24 21:31 1,000 ML Midazolam HCl 50 ml @ 1 mls/hr Q24H IV 09/10/24 14:45 09/18/24 01:45 5 MLS/HR Sodium Chloride 10 ml QSHIFT@10,22 IV 09/13/24 22:00 09/18/24 21:31 10 ML Fentanyl Citrate 250 ml @ 2.5 mls/hr Q24H IV 09/14/24 07:30 09/17/24 19:48 15 MLS/HR Metoclopramide HCl 5 mg Q8HR IV 09/15/24 14:00 09/18/24 21:31 5 MG Enoxaparin Sodium 100 mg Q12HR SC 09/17/24 22:00 09/18/24 21:31 100 MG Dexmedetomidine HCl 400 mcg/ Dextrose 100 ml @ 5.555 mls/ hr Q18H1M IV 09/18/24 11:45 Sodium Chloride 1,000 ml @ 100 mls/hr Q10H IV 09/18/24 13:00 09/18/24 14:37 100 MLS/HR objective Gen.: Patient lying in bed in medical ICU. Sedated, intubated on mechanical ventilator. Head: Normocephalic, atraumatic. Eyes: PERRLA. Ears: Normal external anatomy. Throat: Endotracheal tube and orogastric tube in place. Neck: Supple, trachea midline. Chest: Transmitted breath sounds bilaterally. Decreased air entry bilaterally. No wheezing. Bibasilar crackles. Cardio vascular: Positive S1, positive S2. Regular rate and rhythm. Abdomen: Positive bowel sounds in all 4 quadrants. Soft, nontender, nondistended. : Betancourt in place. Normal external genitalia. Rectal: Deferred Skin: Warm, dry. Intact. Extremities: 2+ radial pulses bilaterally. No lower extremity edema. Neuro: Sedated. laboratory and microbiology Laboratory Tests 09/18/24 03:29 Test 09/18/24 03:29 Range/Units Serum Glucose 107 H 74-106 mg/dL Assessment/Plan Impression: Acute on chronic hypoxic respiratory failure On mechanical ventilator Pulmonary edema Pleural effusion, left Atelectasis Leukocytosis Lactic acidosis Morbid obesity, BMI 40 Events: Remains on vent support On pressure control with a respiratory rate of 18, inspiratory pressure of 18, PEEP of 6, FiO2 at 45%. CXR demonstrates hypoinflation. Small bilateral pleural effusions, pulmonary vascular congestion. No pneumothorax. ABG notable for alkalemia. WBC trending down. Sedated on Fentanyl, Versed. Taper sedation CPAP w/ PS 8, PEEP of 5. Obtain ABG in 1 hour. Off pressors,hemodynamically stable. Continue bronchodilators/Mucomyst Continue abx Tube feeds for nutritional support HD per Nephrology Monitor renal function Therapeutic Lovenox Continue to monitor respiratory status closely. Poor prognosis due to multiorgan failure - renal, respiratory and liver failure. Labs and imaging reviewed. Rest of plan as noted below. Plan: s/p intubation on mechanical ventilator On pressure control with a respiratory rate of 18, inspiratory pressure of 18, PEEP of 6, FiO2 at 45%. Titrate FIO2 to keep O2 saturation above 92%. VAP bundle Daily ABG and CXR while intubated. Sedate for ventilatory synchrony Bronchodilators Pressors as necessary for hemodynamic support. Titrate to keep MAP above 65 mmHg/SBP above 90 mmHg. Continue antibiotics. (Vancomycin stopped d/t kidney failure). F/u cultures. Elevated WBC Monitor renal function Monitor ins/outs. Monitor electrolytes. Supplement as necessary. Monitor lactic acid On IVF Nutritional support. Accucheks, ISS. GI/DVT prophylaxis. Condition: Critical Prognosis: Poor given multiple comorbidities. Rest of plan per hospitalist and other consultants. A total of 35 minutes of critical care time was spent reviewing the patient record, examining the patient, making a diagnostic and therapeutic plan, discussing this plan with the medical personnel, following up on diagnostic studies and following the patient for clinical stability excluding any and all procedures. At least 50% of this time was spent in direct, [id number] contact. Thank you Dr. Banda for allowing me to participate in this patient's care. Further recommendations will depend on patient's clinical course. Please do not hesitate to contact me if you have any questions or concerns. This medical document was created using an electronic medical record system with [employer] system. Although this document has been carefully reviewed, there may still be some phonetic and typographical errors. These areas are purely typographical due to imperfections of the software programs, and do not reflect any compromise in the patient's medical care. Dietary Evaluation Review Comments: 1. Consider EN/TPN if NPO >7days 2. Continue plan of care Expected Outcomes/Goals: 1. Pt will meet >75% of estimated needs within 2-3 days Plan discussed with: Other (DEIDRE Willard) Critical Care Time(min): 35 SHAI SINGH MD Sep 18, 2024 22:35
[2024-09-19] VITALS (115 sets, daily range): BP systolic 90–153; BP diastolic 59–88; PULSE 75–98; RESP 16–32; TEMP 98–99.9; O2SAT 93–100
[2024-09-19 04:30] LABS: Basophils # (auto) 0.2 10 ^3/uL (0-0.2); Eosinophils # (auto) 0.2 10 ^3/uL (0-0.8); Eosinophils % (auto) 1.8 % (0.0-7.0); Hemoglobin 10.8 g/dL (12.2-16.2); Lymphocytes # (auto) 1.1 10 ^3/uL (0.4-5.4); Lymphocytes % (auto) 10.2 % (10.0-50.0); Mean Corpuscular Hemoglobin 29.8 pg (28.0-32.0); Mean Corpuscular Hgb Conc. 32.8 g/dL (32.0-36.0); Mean Corpuscular Volume 90.9 fL (80.0-100.0); Monocytes # (auto) 0.9 10 ^3/uL (0-1.3); Monocytes % (auto) 8.2 % (0.0-12.0); Neutrophils # (auto) 8.3 10 ^3/uL (1.6-8.6); Neutrophils % (auto) 77.8 % (37.0-80.0); Platelet Count (auto) 329 10^3/uL (140-450); Red Blood Cells 3.63 10^6/uL (4.0-5.20); Red Cell Distribution Width 13.8 % (11.8-14.3); White Blood Cell 10.7 10^3/uL (4.4-10.8)
[2024-09-19 04:48] LABS: Albumin 3.4 g/dL (3.2-4.8); Alkaline Phosphatase 105 U/L (46-116); Anion Gap 11 (5-15); BUN/Creatinine Ratio 49.5 (10.0-20.0); Bilirubin, Total 0.5 mg/dL (0.2-1.0); Calcium 10.4 mg/dL (8.7-10.4); Carbon Dioxide 26 mmol/L (20-31); Glucose 92 mg/dL (74-106); Potassium 3.7 mmol/L (3.5-5.1); Total Protein 6.6 g/dL (5.7-8.2)
[2024-09-19 05:23] LABS: Alanine Aminotransferase 90 U/L (7-40); Aspartate Aminotransferase 89 U/L (13-40); Blood Urea Nitrogen 46 mg/dL (9-23); Chloride 118 mmol/L (98-107); Sodium 155 mmol/L (136-145)
--- NOTE | 2024-09-19 06:09 | DVH ---
CHEST RADIOGRAPH Indication: ET TUBE PLACEMENT Technique: Single frontal view of the chest was obtained Comparison: XY CHEST XRAY 1 VIEW on DOS: 09/18/24, XY CHEST XRAY 1 VIEW on DOS: 09/17/24, XY CHEST XRAY 1 VIEW on DOS: 09/16/24, XY CHEST XRAY 1 VIEW on DOS: 09/15/24, XY CHEST XRAY 1 VIEW on DOS: 09/14/24, XY CHEST XRAY 1 VIEW on DOS: 09/18/24 FINDINGS: There are low lung volumes. Support lines and tubes appear unchanged in satisfactory position. Small bilateral pleural effusions with mild pulmonary vascular congestion. No pneumothorax. IMPRESSION: There are low lung volumes. Support lines and tubes appear unchanged in satisfactory position. Small bilateral pleural effusions with mild pulmonary vascular congestion. No pneumothorax.
[2024-09-19] MEDS: MAGNESIUM SULFATE 1GM/100ML 100 ML IV ONE ×2 (06:30→06:34)
[2024-09-19 09:58] LABS: Base Excess 0.4 mmol/L (-2.0-3.0)
[2024-09-19] MEDS ORDERED: FUROSEMIDE 40 MG/4 ML VIAL IV ONE (11:00)
[2024-09-19] MEDS: FUROSEMIDE 20 MG/2 ML VIAL IV ONE (11:21)
--- NOTE | 2024-09-19 15:15 | DVHPN2 ---
Progress Note - Dictate Date Seen: Sep 19, 2024 Has the PT tested + for MRSA If YES, has PT been informed?: Yes Medical Necessity Reason Pt with a Central, PICC or Fol: Yes The following are medically ne: Betancourt Catheter Reason for betancourt catheter: Strict I&O Subjective Patient was seen and evaluated in follow up in the ICU. Patient is intubated on ventilator. FiO2 has been decreased to 35%. Patient's eyes are open however does not track or follow simple commands given by nursing staff. 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 Chest x-ray is unchanged. NA 155, CL 118, BUN 46, AST 89, ALT 90. vital signs Vital Sign Date Time Temp Pulse Resp B/P (MAP) Pulse Ox O2 Delivery O2 Flow Rate FiO2 09/19/24 12:31 82 24 120/74 (89) 98 35 09/19/24 12:00 Mechanical Ventilator+ 09/19/24 08:00 99.5 99.5 Total Intake and Output 09/18/24 09/18/24 09/19/24 15:00 23:00 07:00 Intake Total 105.5 ml 800 ml 1010 ml Output Total 850 ml 1050 ml Balance 105.5 ml -50 ml -40 ml medications Current Medications Medications Dose Ordered Sig/[place] Route Start Time Stop Time Status Last Admin Dose Admin Albuterol 2.5 mg Q4HWA PRN NEB 09/02/24 18:30 09/19/24 06:44 2.5 MG Ipratropium [place] 0.5 mg Q4HWA PRN NEB 09/02/24 18:30 09/19/24 06:44 0.5 MG Acetaminophen 650 mg Q4HP PRN GT 09/03/24 10:00 09/03/24 10:21 650 MG Norepinephrine Bitartrate 32 mg/ Sodium Chloride 250 ml @ 0.938 mls/ hr Q24H IV 09/03/24 12:30 09/13/24 20:42 1.875 MLS/HR Pantoprazole Sodium 40 mg DAILY IV 09/04/24 10:00 09/19/24 10:02 40 MG Docusate Sodium 200 mg BID NG 09/06/24 22:00 09/18/24 21:30 200 MG Acetylcysteine 200 mg Q8HR NEB 09/07/24 14:00 09/19/24 06:44 200 MG Atorvastatin Calcium 40 mg HS PO 09/07/24 22:00 09/18/24 21:31 40 MG Enteral Nutritional Formula 1,000 ml 30ML/HR GT 09/10/24 13:15 09/18/24 21:31 1,000 ML Midazolam HCl 50 ml @ 1 mls/hr Q24H IV 09/10/24 14:45 09/18/24 01:45 5 MLS/HR Sodium Chloride 10 ml QSHIFT@10,22 IV 09/13/24 22:00 09/19/24 10:02 10 ML Fentanyl Citrate 250 ml @ 2.5 mls/hr Q24H IV 09/14/24 07:30 09/17/24 19:48 15 MLS/HR Metoclopramide HCl 5 mg Q8HR IV 09/15/24 14:00 09/19/24 05:23 5 MG Dexmedetomidine HCl 400 mcg/ Dextrose 100 ml @ 5.555 mls/ hr Q18H1M IV 09/18/24 11:45 Sodium Chloride 1,000 ml @ 100 mls/hr Q10H IV 09/18/24 13:00 09/18/24 23:06 100 MLS/HR objective GENERAL: Intubated on ventilator. Morbidly obese LUNGS: Decreased breath sounds. CARDIOVASCULAR: Heart sounds are good. ABDOMEN: Soft. Morbid pannus limited physical palpation. SKIN: Multiple scars to abdomen. Two open areas on abdomen with oozing wounds. laboratory and microbiology Laboratory Tests 09/19/24 03:24 Test 09/19/24 03:24 Range/Units Serum Glucose 92 74-106 mg/dL Problem List Septic shock. Acute on chronic respiratory failure. NSTEMI type II secondary to above. Rule out structural heart disease. Prolonged QT interval. Morbid obesity, Class 3. Assessment/Plan Continued all current supportive medical care. IV antibiotics as ordered. Vasopressors for hemodynamic support. GI prophylactics. Additional plan as per the hospital course. Critical care time of 45 minutes provided to include time spent evaluation of patient at bedside, when appropriate patient/family education for diagnosis, treatment plan, review of pertinent medical information and discussion of care with specialty providers and PCP. Mechanical ventilator parameters, treatment and adjustments have personally been reviewed by me and treatment plan by streetcar conductor has also been reviewed. Dietary Evaluation Review Comments: 1. Consider EN/TPN if NPO >7days 2. Continue plan of care Expected Outcomes/Goals: 1. Pt will meet >75% of estimated needs within 2-3 days Plan discussed with: RELL Valle MD Sep 19, 2024 14:04
--- NOTE | 2024-09-19 16:49 | DVHPN2 ---
Progress Note - Dictate Date Seen: Sep 19, 2024 Has the PT tested + for MRSA If YES, has PT been informed?: Yes Medical Necessity Reason Pt with a Central, PICC or Fol: Yes The following are medically ne: Betancourt Catheter Reason for betancourt catheter: Strict I&O Subjective Received a dose of loop diuretic earlier today vital signs Vital Sign Date Time Temp Pulse Resp B/P (MAP) Pulse Ox O2 Delivery O2 Flow Rate FiO2 09/19/24 16:14 78 18 114/69 (84) 98 35 09/19/24 16:00 Mechanical Ventilator+ 09/19/24 08:00 99.5 99.5 Total Intake and Output 09/18/24 09/18/24 09/19/24 15:00 23:00 07:00 Intake Total 105.5 ml 800 ml 1010 ml Output Total 850 ml 1050 ml Balance 105.5 ml -50 ml -40 ml medications Current Medications Medications Dose Ordered Sig/Acacia Route Start Time Stop Time Status Last Admin Dose Admin Albuterol 2.5 mg Q4HWA PRN NEB 09/02/24 18:30 09/19/24 14:46 2.5 MG Ipratropium [place] 0.5 mg Q4HWA PRN NEB 09/02/24 18:30 09/19/24 14:46 0.5 MG Acetaminophen 650 mg Q4HP PRN GT 09/03/24 10:00 09/03/24 10:21 650 MG Norepinephrine Bitartrate 32 mg/ Sodium Chloride 250 ml @ 0.938 mls/ hr Q24H IV 09/03/24 12:30 09/13/24 20:42 1.875 MLS/HR Pantoprazole Sodium 40 mg DAILY IV 09/04/24 10:00 09/19/24 10:02 40 MG Docusate Sodium 200 mg BID NG 09/06/24 22:00 09/18/24 21:30 200 MG Acetylcysteine 200 mg Q8HR NEB 09/07/24 14:00 09/19/24 14:46 200 MG Atorvastatin Calcium 40 mg HS PO 09/07/24 22:00 09/18/24 21:31 40 MG Enteral Nutritional Formula 1,000 ml 30ML/HR GT 09/10/24 13:15 09/18/24 21:31 1,000 ML Midazolam HCl 50 ml @ 1 mls/hr Q24H IV 09/10/24 14:45 09/18/24 01:45 5 MLS/HR Sodium Chloride 10 ml QSHIFT@10,22 IV 09/13/24 22:00 09/19/24 10:02 10 ML Fentanyl Citrate 250 ml @ 2.5 mls/hr Q24H IV 09/14/24 07:30 09/17/24 19:48 15 MLS/HR Metoclopramide HCl 5 mg Q8HR IV 09/15/24 14:00 09/19/24 15:30 5 MG Dexmedetomidine HCl 400 mcg/ Dextrose 100 ml @ 5.555 mls/ hr Q18H1M IV 09/18/24 11:45 objective gen: intubated lungs: occ ronchi cvs: no rub ext: no sigifnicant edema laboratory and microbiology Laboratory Tests 09/19/24 03:24 Test 09/19/24 03:24 Range/Units Serum Glucose 92 74-106 mg/dL Assessment/Plan IMP: 1) Hemodynamically mediated FEDE/VMN setting of shock - resolving 2) CKD stage IIIA? 3) shock with multiorgan involvement 4) history of PE 5) leukocytosis 6) bacteremia REC: - D5 W due to significant uptrend of hypernatremia - Kidney function back to baseline Dietary Evaluation Review Comments: 1. Consider EN/TPN if NPO >7days 2. Continue plan of care Expected Outcomes/Goals: 1. Pt will meet >75% of estimated needs within 2-3 days Plan discussed with: PERICO Copeland MD Sep 19, 2024 16:49
--- NOTE | 2024-09-19 17:25 | DVHPN2 ---
Progress Note - Dictate Date Seen: Sep 19, 2024 Has the PT tested + for MRSA If YES, has PT been informed?: Yes Medical Necessity Reason Pt with a Central, PICC or Fol: Yes The following are medically ne: Betancourt Catheter Reason for betancourt catheter: Strict I&O Subjective She is sedated and intubated on mechanical ventilation. No new acute complaints noted. Patient placed on CPAP. Early this morning, patient was having frequent PVCs on the director of cardiac rehabilitation. Chest x-ray is unchanged. White count trending down, currently at 14.3. 09/18, Chest x-ray: There are low lung volumes. Support lines and tubes appear unchanged in satisfactory position. Small bilateral pleural effusions with mild pulmonary vascular congestion. No pneumothorax. vital signs Vital Sign Date Time Temp Pulse Resp B/P (MAP) Pulse Ox O2 Delivery O2 Flow Rate FiO2 09/19/24 16:14 78 18 114/69 (84) 98 35 09/19/24 16:00 Mechanical Ventilator+ 09/19/24 08:00 99.5 99.5 Total Intake and Output 09/18/24 09/18/24 09/19/24 15:00 23:00 07:00 Intake Total 105.5 ml 800 ml 1010 ml Output Total 850 ml 1050 ml Balance 105.5 ml -50 ml -40 ml medications Current Medications Medications Dose Ordered Sig/[place] Route Start Time Stop Time Status Last Admin Dose Admin Albuterol 2.5 mg Q4HWA PRN NEB 09/02/24 18:30 09/19/24 14:46 2.5 MG Ipratropium [place] 0.5 mg Q4HWA PRN NEB 09/02/24 18:30 09/19/24 14:46 0.5 MG Acetaminophen 650 mg Q4HP PRN GT 09/03/24 10:00 09/03/24 10:21 650 MG Norepinephrine Bitartrate 32 mg/ Sodium Chloride 250 ml @ 0.938 mls/ hr Q24H IV 09/03/24 12:30 09/13/24 20:42 1.875 MLS/HR Pantoprazole Sodium 40 mg DAILY IV 09/04/24 10:00 09/19/24 10:02 40 MG Docusate Sodium 200 mg BID NG 09/06/24 22:00 09/18/24 21:30 200 MG Acetylcysteine 200 mg Q8HR NEB 09/07/24 14:00 09/19/24 14:46 200 MG Atorvastatin Calcium 40 mg HS PO 09/07/24 22:00 09/18/24 21:31 40 MG Enteral Nutritional Formula 1,000 ml 30ML/HR GT 09/10/24 13:15 09/18/24 21:31 1,000 ML Midazolam HCl 50 ml @ 1 mls/hr Q24H IV 09/10/24 14:45 09/18/24 01:45 5 MLS/HR Sodium Chloride 10 ml QSHIFT@10,22 IV 09/13/24 22:00 09/19/24 10:02 10 ML Fentanyl Citrate 250 ml @ 2.5 mls/hr Q24H IV 09/14/24 07:30 09/17/24 19:48 15 MLS/HR Metoclopramide HCl 5 mg Q8HR IV 09/15/24 14:00 09/19/24 15:30 5 MG Dexmedetomidine HCl 400 mcg/ Dextrose 100 ml @ 5.555 mls/ hr Q18H1M IV 09/18/24 11:45 objective General: Intubated and sedated HEENT: Atraumatic,intubated Neck: No swelling Lungs: Equal air entry and clear to auscultation Cardiovascular: S1 S2 heard no murmur Abdomen: Soft nontender, no organomegaly, nondistended Neuro: sedated, unable to assess Psych: unable to assess laboratory and microbiology Laboratory Tests 09/19/24 03:24 Test 09/19/24 03:24 Range/Units Serum Glucose 92 74-106 mg/dL Assessment/Plan Patient is a 63-year-old female presented to the hospital with: Staphylococcus aureus pneumonia ( MRSA) Streptococcus Pneumoniae pneumonia Septic shock resolving bacteremia : coag neg staphylococccus Acute Respiratory Failure [requiring mechanical ventilation] severe hypoxia Metabolic acidosis FEDE Morbidly obese BMI = 40 PE history Recommendations: antibiotics review Cefepime 09/02- 09/06 Meropenem 09/03-09/05 Ceftriaxone 09/07-ongoing Vancomycin 09/03- 09/11 Linezolid 09/11- ongoing overall, patient has received rx for MRSA pneumonia from 09/03 until now. total 14 days, stopped antibiotics respiratory status is stable on vent. Blood culture:co ag neg staph, i think its contaminated. Recent on 09/07 showed no growth 09/11 : show Gram Positive Cocci in clusters Pulmonary on board for vent management full code prognosis guarded crit time 35 mins spent during the encounter. Thank you for consult and for giving an opportunity to take care of this patient. Dietary Evaluation Review Comments: 1. Consider EN/TPN if NPO >7days 2. Continue plan of care Expected Outcomes/Goals: 1. Pt will meet >75% of estimated needs within 2-3 days Plan discussed with: Other ANGELLA REYES MD Sep 19, 2024 17:25
[2024-09-19] MEDS: D5W 5% 1,000 ML IV ONE (17:36)
--- NOTE | 2024-09-19 20:06 | DVHPN2 ---
Progress Note - Dictate Date Seen: Sep 19, 2024 Has the PT tested + for MRSA If YES, has PT been informed?: Yes Medical Necessity Reason Pt with a Central, PICC or Fol: Yes The following are medically ne: Betancourt Catheter Reason for betancourt catheter: Strict I&O Subjective Patient seen and examined at bedside. Intubated on mechanical ventilator. Overnight events reviewed. vital signs Vital Sign Date Time Temp Pulse Resp B/P (MAP) Pulse Ox O2 Delivery O2 Flow Rate FiO2 09/19/24 19:17 79 28 119/71 99 30 09/19/24 18:35 Mechanical Ventilator 09/19/24 16:00 98.0 98.0 Total Intake and Output 09/18/24 09/18/24 09/19/24 15:00 23:00 07:00 Intake Total 105.5 ml 800 ml 1010 ml Output Total 850 ml 1050 ml Balance 105.5 ml -50 ml -40 ml medications Current Medications Medications Dose Ordered Sig/[place] Route Start Time Stop Time Status Last Admin Dose Admin Albuterol 2.5 mg Q4HWA PRN NEB 09/02/24 18:30 09/19/24 18:41 2.5 MG Ipratropium [place] 0.5 mg Q4HWA PRN NEB 09/02/24 18:30 09/19/24 18:41 0.5 MG Acetaminophen 650 mg Q4HP PRN GT 09/03/24 10:00 09/03/24 10:21 650 MG Norepinephrine Bitartrate 32 mg/ Sodium Chloride 250 ml @ 0.938 mls/ hr Q24H IV 09/03/24 12:30 09/13/24 20:42 1.875 MLS/HR Pantoprazole Sodium 40 mg DAILY IV 09/04/24 10:00 09/19/24 10:02 40 MG Docusate Sodium 200 mg BID NG 09/06/24 22:00 09/18/24 21:30 200 MG Acetylcysteine 200 mg Q8HR NEB 09/07/24 14:00 09/19/24 14:46 200 MG Atorvastatin Calcium 40 mg HS PO 09/07/24 22:00 09/18/24 21:31 40 MG Enteral Nutritional Formula 1,000 ml 30ML/HR GT 09/10/24 13:15 09/18/24 21:31 1,000 ML Midazolam HCl 50 ml @ 1 mls/hr Q24H IV 09/10/24 14:45 09/18/24 01:45 5 MLS/HR Sodium Chloride 10 ml QSHIFT@10,22 IV 09/13/24 22:00 09/19/24 10:02 10 ML Fentanyl Citrate 250 ml @ 2.5 mls/hr Q24H IV 09/14/24 07:30 09/17/24 19:48 15 MLS/HR Metoclopramide HCl 5 mg Q8HR IV 09/15/24 14:00 09/19/24 15:30 5 MG Dexmedetomidine HCl 400 mcg/ Dextrose 100 ml @ 5.555 mls/ hr Q18H1M IV 09/18/24 11:45 Enoxaparin Sodium 100 mg Q12HR SC 09/19/24 22:00 objective Gen.: Patient lying in bed in medical ICU. Intubated on mechanical ventilator. Head: Normocephalic, atraumatic. Eyes: PERRLA. Ears: Normal external anatomy. Throat: Endotracheal tube and orogastric tube in place. Neck: Supple, trachea midline. Chest: Transmitted breath sounds bilaterally. Decreased air entry bilaterally. No wheezing. Bibasilar crackles. Cardio vascular: Positive S1, positive S2. Regular rate and rhythm. Abdomen: Positive bowel sounds in all 4 quadrants. Soft, nontender, nondistended. : Betancourt in place. Normal external genitalia. Rectal: Deferred Skin: Warm, dry. Intact. Extremities: 2+ radial pulses bilaterally. No lower extremity edema. Neuro: Off sedation laboratory and microbiology Laboratory Tests 09/19/24 03:24 Test 09/19/24 03:24 Range/Units Serum Glucose 92 74-106 mg/dL Assessment/Plan Impression: Acute on chronic hypoxic respiratory failure On mechanical ventilator Pulmonary edema Pleural effusion, left Atelectasis Leukocytosis Lactic acidosis Morbid obesity, BMI 40 Events: Hypernatremia with sodium of 155 IV fluids with half NS at 100 ml/hr discontinued. Start Lasix 20 mg IVP x1 CVP of 12-14 cm H2O. Continue bronchodilators/Mucomyst Magnesium supplemented. ABG notable for alkalemia d/t respiratory alkalosis. CPAP this AM. CPAP with PS 8, PEEP of 5. Weaning parameters acceptable. Patient remains groggy. Will continue to exercise w/ CPAP. WBC trending down, 10.7 K. Off sedation Off pressors,hemodynamically stable. Tube feeds for nutritional support HD per Nephrology Monitor renal function Therapeutic Lovenox Continue to monitor respiratory status closely. Poor prognosis due to multiorgan failure - renal, respiratory and liver failure. Labs and imaging reviewed. Rest of plan as noted below. Plan: s/p intubation on mechanical ventilator On CPAP trial Vent settings; pressure control with a respiratory rate of 18, inspiratory pressure of 18, PEEP of 6, FiO2 at 45%. Titrate FIO2 to keep O2 saturation above 92%. VAP bundle Daily ABG and CXR while intubated. Off sedation Bronchodilators Pressors as necessary for hemodynamic support. Titrate to keep MAP above 65 mmHg/SBP above 90 mmHg. Antibiotics completed. (Vancomycin stopped d/t kidney failure). F/u cultures. Elevated WBC Monitor renal function Monitor ins/outs. Monitor electrolytes. Supplement as necessary. Monitor lactic acid On IVF Nutritional support. Accucheks, ISS. GI/DVT prophylaxis. Condition: Critical Prognosis: Poor given multiple comorbidities. Rest of plan per hospitalist and other consultants. A total of 35 minutes of critical care time was spent reviewing the patient record, examining the patient, making a diagnostic and therapeutic plan, discussing this plan with the medical personnel, following up on diagnostic studies and following the patient for clinical stability excluding any and all procedures. At least 50% of this time was spent in direct, [id number] contact. Thank you Dr. Banda for allowing me to participate in this patient's care. Further recommendations will depend on patient's clinical course. Please do not hesitate to contact me if you have any questions or concerns. This medical document was created using an electronic medical record system with [employer] dictation system. Although this document has been carefully reviewed, there may still be some phonetic and typographical errors. These areas are purely typographical due to imperfections of the software programs, and do not reflect any compromise in the patient's medical care. Dietary Evaluation Review Comments: 1. Consider EN/TPN if NPO >7days 2. Continue plan of care Expected Outcomes/Goals: 1. Pt will meet >75% of estimated needs within 2-3 days Plan discussed with: Other (DEIDRE Willard) Critical Care Time(min): 35 SHAI SINGH MD Sep 19, 2024 20:06
--- NOTE | 2024-09-19 20:55 | DVHPN2 ---
Subjective 63 yo morbidly obese with past history of pulmonary emboli, knee surgery (2016) ,multiple (6) abdominal surgery for hernia (2016) and bowel obstruction (2019) and multiple drug abuse brought to the hospital with shortness of breaths. Admitted and intubated on 09/02. Today, Patient seen examined at the bedside. Patient is sedated and on mechanical ventilation. Review of system could not obtain. Chest x-ray shows bilateral small pleural effusion, with bilateral basilar atelectasis, seem to previous film. Reviewed: Care Plan, H&P, Labs, Medications, Previous Orders, Radiology, Other (Consultants) Changes from previous H/P or p: No Changes Objective Vitals Vital Signs Date Time Temp Pulse Resp B/P (MAP) Pulse Ox O2 Delivery O2 Flow Rate FiO2 09/19/24 20:45 81 25 107/59 (75) 99 09/19/24 20:11 35 09/19/24 20:00 98.4 98.4 09/19/24 20:00 Mechanical Ventilator+ Intake/Output Intake and Output 09/19/24 05:00 Intake Total 1751.5 ml Output Total 1950 ml Balance -198.5 ml Intake Oral 60 ml IV Total 1521.5 ml Tube Feeding 170 ml Output Urine Total 1950 ml General Appearance: Other (Sedated and intubated) HEENT: Atraumatic, PERRLA Lungs: Other (Crackles bilateral lungs) Cardiovascular: Regular rate Abdomen: Other Extremities: Other (Decreased edema bilateral lower extremities/skin shrinkage) Medications Current Medications Medications Dose Ordered Sig/[place]acia Route Start Time Stop Time Status Last Admin Dose Admin Albuterol 2.5 mg Q4HWA PRN NEB 09/02/24 18:30 09/19/24 18:41 2.5 MG Ipratropium [place] 0.5 mg Q4HWA PRN NEB 09/02/24 18:30 09/19/24 18:41 0.5 MG Acetaminophen 650 mg Q4HP PRN GT 09/03/24 10:00 09/03/24 10:21 650 MG Norepinephrine Bitartrate 32 mg/ Sodium Chloride 250 ml @ 0.938 mls/ hr Q24H IV 09/03/24 12:30 09/13/24 20:42 1.875 MLS/HR Pantoprazole Sodium 40 mg DAILY IV 09/04/24 10:00 09/19/24 10:02 40 MG Docusate Sodium 200 mg BID NG 09/06/24 22:00 09/18/24 21:30 200 MG Acetylcysteine 200 mg Q8HR NEB 09/07/24 14:00 09/19/24 14:46 200 MG Atorvastatin Calcium 40 mg HS PO 09/07/24 22:00 09/18/24 21:31 40 MG Enteral Nutritional Formula 1,000 ml 30ML/HR GT 09/10/24 13:15 09/18/24 21:31 1,000 ML Midazolam HCl 50 ml @ 1 mls/hr Q24H IV 09/10/24 14:45 09/18/24 01:45 5 MLS/HR Sodium Chloride 10 ml QSHIFT@10,22 IV 09/13/24 22:00 09/19/24 10:02 10 ML Fentanyl Citrate 250 ml @ 2.5 mls/hr Q24H IV 09/14/24 07:30 09/17/24 19:48 15 MLS/HR Metoclopramide HCl 5 mg Q8HR IV 09/15/24 14:00 09/19/24 15:30 5 MG Dexmedetomidine HCl 400 mcg/ Dextrose 100 ml @ 5.555 mls/ hr Q18H1M IV 09/18/24 11:45 Enoxaparin Sodium 100 mg Q12HR SC 09/19/24 22:00 Laboratory Results Laboratory Tests 09/19/24 03:24 Chemistry Test 09/19/24 03:24 Albumin 3.4 g/dL (3.2-4.8) Calcium Level 10.4 mg/dL (8.7-10.4) Magnesium Level 1.8 mg/dL (1.6-2.6) Total Protein 6.6 g/dL (5.7-8.2) LFT Test 09/19/24 03:24 Alanine Aminotransferase (ALT) 90 U/L (7-40) H Alkaline Phosphatase 105 U/L (46-116) Aspartate Amino Transferase (AST) 89 U/L (13-40) H Total Bilirubin 0.5 mg/dL (0.2-1.0) Urinalysis Test 09/04/24 14:26 09/11/24 00:00 Urine Amorphous Crystals Few /hpf (None Seen) Urine Creatinine 148.33 mg/dL (30.0-125.0) H Urine Sodium 24 mmol/L (40-220) L Urine Total Protein 253.7 mg/dL (1-14) H Urine Color Light-orange (Yellow) Urine Clarity Ex.turbid (Clear) Urine pH 5.5 (5.0-9.0) Urine Specific [place] 1.016 (1.001-1.035) Urine Protein 1+ (Negative) H Urine Ketones Negative (Negative) Urine Blood 2+ /uL (Negative) H Urine Nitrite Negative (Negative) Urine Bilirubin Negative (Negative) Urine Urobilinogen Normal mg/dL (Negative) Urine Leukocyte Esterase Negative /uL (Negative) Urine RBC 20 /hpf (0 - 4) Urine WBC 40 /hpf (0 - 5) Urine Squamous Epithelial Cells Mod /hpf (<5) Urine Bacteria Few /hpf (None Seen) H Urine Mucus Few (None Seen) Urine Glucose Normal mg/dL (Normal) Blood Gas Results Test 09/19/24 09:50 Arterial Blood pH 7.471 (7.350-7.450) FiO2 % 35.0 Microbiology Microbiology Date/Time Source Procedure Growth Status 09/11/24 14:35 Blood Blood Culture - Final Staphylococcus epidermidis Complete 09/11/24 00:00 Voided Urine Urine Culture - Final Complete 09/08/24 14:33 Bronchial Washings Gram Stain - Final Complete 09/08/24 14:33 Bronchial Washings Respiratory Culture - Final Complete 09/06/24 13:00 Vaginal Vaginal Culture - Final Enterococcus faecalis Methicillin Resistant S.aureus Complete 09/04/24 20:40 Nose MRSA Screen - Final Complete Assessment/Plan Assessment/Plan NEURO: Acute metabolic encephalopathy likely due to septic shock Patient is sedated and on mechanical ventilation with RASS score -5 CARDIOVASCULAR: NSTEMI type 2 likely due to septic shock Has history of pulmonary emboli in 2016 Cardiology on the board, recommended conservative management Echocardiogram shows mild LVH with mild LV diastolic dysfunction with ejection fraction of 65 PULMONARY: Patient is sedated and on mechanical ventilation with pressure control mode with PEEP 8, respiratory rate 22, FiO2 40%, making VT of 740 mL Acute Hypoxic respiratory failure, likely due to pneumonia Septic shock likely due to pneumonia Pneumonia due to MRSA Bronchoscopy performed on 09/07 shows lots of secretion on the left main bronchus, bronchial lavage results shows MRSA Bronchoscopy was repeated on 09/08, shows less mucus secretion in compared to previous bronchoscopy Blood culture from 09/02/2024 shows staph hominis sensitive to vancomycin Sputum culture from 09/02/2024 shows MRSA, Streptococcus pneumoniae vancomycin Influenza and COVID-19 screening negative Blood culture from 09/11 shows Staphylococcus epidermidis, sensitive to vancomycin Can maintain saturation at 93% with 45% FiO2 Secretion was bilateral infiltration Continue N-acetylcysteine Continue breathing treatment Increased dose of ceftriaxone from 1 g to 2 g daily on 09/13 Discontinued linezolid, used for 6 days Breathing treatment q.4 hours as needed CPAP trial tomorrow GI: Patient has history of multiple surgery of hernia(2015) and bowel obstruction(2019) Abdominal ventral hernias, abdominal CT scan shows multiple ventral wall hernias containing fat and bowel with mild dilatation of proximal jejunum loops with jejunal loops course into the abdominal hernia Possible bowel obstruction, surgery consulted, recommended conservative management, suggested that small bowel series could not perform at the moment due to respiratory status of the patient Transaminitis, likely ischemic secondary to septic shock Patient had 2 large bowel movement last night Bowel regimen: Docusate GI ppx: Protonix RENAL: FEDE , likely hemodynamically mediated, improving Nephrology on the board, last HD session on 09/10 Renal function improving Possible rhabdomyolysis, likely due to immobilization Creatinine kinase is raised at 8215, downtrending Monitoring ENDOCRINE: Hypertriglyceridemia, TG 623 09/04, 320 at 09/15 Likely due to propofol, discontinued propofol Continue Atorvastatin 40 mg ID: Sputum cultures from 09/02/2024 shows MRSA, Streptococcus pneumoniae Blood culture from 09/02/2024 shows Staph hominis Results from bronchial washing, from 09/07/2024 shows no growth after 24 hours ID on the board, suggested that the culture results are probably due to contamination and recommended to repeat the culture Repeat blood culture Possible PID Patient had purulent vaginal discharge Vaginal bacterial culture, shows coagulase-negative Staphylococcus with few growth of possible Enterococcus species Metabolic: Hyperkalemia, improved Hyponatremia, improved Hypokalemia, supplemented Hypomagnesemia, supplemented Hypernatremia, monitoring Multidrug abuser: Per patient's daughter, she is a current user of amphetamine, marijuana and smoking cigarettes Hepatitis B and C serology negative Check HIV Heme: DVT Doppler ultrasound of lower limb at 08/15 shows, nonocclusive DVT at left popliteal vein Lovenox 100 mg b.i.d. LINES/DRAINS/ACCESS: ETT, intubated on 09/02/2024 IV access Left upper arm PICC line, placed on 09/13 Drips: Versed 5 Fentanyl to 225 Levophed 0 DVT ppx: Therapeutic dose of Lovenox DIET: Jevity 30 mL/hour CODE STATUS: Full code Patient's status was updated with the patient's daughter on the phone. Critical time spent more than 83 minutes, including patient care, chart review and updating the family, excluding any procedures. Plan discussed with: Other (nurse) My Orders Orders - TALI LARA MD Procedure Category Date Status Time Enoxaparin Sodium PHA 09/19/24 In Process (Lovenox) 22:00 Complete Blood Count LAB 09/20/24 Verified 04:00 Comprehensive LAB 09/20/24 Verified Metabolic Panel 04:00 Chest Portable XY 09/20/24 Logged 04:00 Abg W/ Co-Ox RT 09/20/24 Logged 06:00 Cpap Trial For Am ORDERS 09/20/24 Transmitted 07:00 Magnesium LAB 09/20/24 Verified 04:00 Continuous Monitoring SIMRAN 09/19/24 In Process Of Cvp,P 10:14 Date of Service: Sep 19, 2024 Billing Provider: TALI LARA MD Common Visit Codes: [id number] CARE 30-74 MIN TALI LARA MD Sep 19, 2024 20:55
[2024-09-19] MEDS: ENOXAPARIN SOD 100 MG/1 ML SYRINGE SC SCH (21:55)
[2024-09-20] VITALS (102 sets, daily range): BP systolic 87–127; BP diastolic 47–73; PULSE 68–95; RESP 13–34; TEMP 98.4–99.5; O2SAT 91–100
[2024-09-20 04:36] LABS: Lymphocytes % (auto) 12.5 % (10.0-50.0); Monocytes % (auto) 7.1 % (0.0-12.0); White Blood Cell 10.7 10^3/uL (4.4-10.8)
[2024-09-20 04:37] LABS: Basophils # (auto) 0.2 10 ^3/uL (0-0.2); Eosinophils # (auto) 0.3 10 ^3/uL (0-0.8); Eosinophils % (auto) 2.4 % (0.0-7.0); Hematocrit 33.5 % (36.0-46.0); Hemoglobin 10.9 g/dL (12.2-16.2); Lymphocytes # (auto) 1.3 10 ^3/uL (0.4-5.4); Mean Corpuscular Hemoglobin 29.8 pg (28.0-32.0); Mean Corpuscular Hgb Conc. 32.4 g/dL (32.0-36.0); Mean Corpuscular Volume 91.9 fL (80.0-100.0); Monocytes # (auto) 0.8 10 ^3/uL (0-1.3); Neutrophils # (auto) 8.1 10 ^3/uL (1.6-8.6); Platelet Count (auto) 369 10^3/uL (140-450); Red Blood Cells 3.64 10^6/uL (4.0-5.20); Red Cell Distribution Width 13.8 % (11.8-14.3)
[2024-09-20 04:59] LABS: Albumin 3.5 g/dL (3.2-4.8); Alkaline Phosphatase 105 U/L (46-116); Anion Gap 11 (5-15); Calcium 10.3 mg/dL (8.7-10.4); Carbon Dioxide 25 mmol/L (20-31); Magnesium 1.7 mg/dL (1.6-2.6)
[2024-09-20 05:00] LABS: Bilirubin, Total 0.3 mg/dL (0.2-1.0); Total Protein 6.4 g/dL (5.7-8.2)
--- NOTE | 2024-09-20 05:04 | DVH ---
CHEST RADIOGRAPH Indication: VASCULAR CONGESTION Technique: Single frontal view of the chest was obtained COMPARISON: XY CHEST PORTABLE on DOS: 09/19/24, XY CHEST XRAY 1 VIEW on DOS: 09/18/24, XY CHEST XRAY 1 VIEW on DOS: 09/17/24 FINDINGS: Lines and Tubes: Endotracheal tube, enteric catheter and left PICC in satisfactory position. Lungs: Multifocal airspace disease. Pleura: No effusion. No pneumothorax. Cardiomediastinal contours: Unremarkable Bones: Unremarkable IMPRESSION: Lines and tubes in satisfactory position. No significant interval change.
[2024-09-20 05:05] LABS: Alanine Aminotransferase 80 U/L (7-40); Aspartate Aminotransferase 60 U/L (13-40); Blood Urea Nitrogen 33 mg/dL (9-23); Chloride 117 mmol/L (98-107); Glucose 108 mg/dL (74-106); Potassium 2.9 mmol/L (3.5-5.1); Sodium 153 mmol/L (136-145)
[2024-09-20] MEDS: POTASSIUM CHL 20MEQ/100ML 100 ML IV SCH (07:36)
[2024-09-20] MEDS: MAGNESIUM SULFATE 1GM/100ML 100 ML IV SCH (07:50)
[2024-09-20] MEDS: D5W 5% 1,000 ML IV SCH (07:58)
[2024-09-20 09:15] LABS: Base Excess 0.5 mmol/L (-2.0-3.0)
[2024-09-20 12:05] LABS: Potassium 3.6 mmol/L (3.5-5.1)
--- NOTE | 2024-09-20 15:17 | DVHPN2 ---
Progress Note Date Seen: Sep 20, 2024 Has the PT tested + for MRSA If YES, has PT been informed?: Yes Medical Necessity Reason Pt with a Central, PICC or Fol: Yes The following are medically ne: Betancourt Catheter Reason for betancourt catheter: Strict I&O Subjective Patient reports: Other (intubated) Review of Systems: Deferred Objective vital signs Vital Sign Date Time Temp Pulse Resp B/P (MAP) Pulse Ox O2 Delivery O2 Flow Rate FiO2 09/20/24 15:03 91 32 115/56 (75) 98 35 09/20/24 12:00 Mechanical Ventilator+ 09/20/24 08:00 99.3 99.3 Total Intake and Output 09/19/24 09/19/24 09/20/24 15:00 23:00 07:00 Intake Total 700 ml 620 ml 600 ml Output Total 1700 ml 700 ml Balance 700 ml -1080 ml -100 ml medications Current Medications Medications Dose Ordered Sig/Acacia Route Start Time Stop Time Status Last Admin Dose Admin Albuterol 2.5 mg Q4HWA PRN NEB 09/02/24 18:30 09/20/24 15:02 2.5 MG Ipratropium [place] 0.5 mg Q4HWA PRN NEB 09/02/24 18:30 09/20/24 15:02 0.5 MG Acetaminophen 650 mg Q4HP PRN GT 09/03/24 10:00 09/03/24 10:21 650 MG Pantoprazole Sodium 40 mg DAILY IV 09/04/24 10:00 09/20/24 09:51 40 MG Docusate Sodium 200 mg BID NG 09/06/24 22:00 09/20/24 09:51 200 MG Acetylcysteine 200 mg Q8HR NEB 09/07/24 14:00 09/20/24 15:02 200 MG Atorvastatin Calcium 40 mg HS PO 09/07/24 22:00 09/19/24 21:55 40 MG Enteral Nutritional Formula 1,000 ml 30ML/HR GT 09/10/24 13:15 09/18/24 21:31 1,000 ML Sodium Chloride 10 ml QSHIFT@10,22 IV 09/13/24 22:00 09/20/24 09:51 10 ML Fentanyl Citrate 250 ml @ 2.5 mls/hr Q24H IV 09/14/24 07:30 09/17/24 19:48 15 MLS/HR Metoclopramide HCl 5 mg Q8HR IV 09/15/24 14:00 09/20/24 05:45 5 MG Dexmedetomidine HCl 400 mcg/ Dextrose 100 ml @ 5.555 mls/ hr Q18H1M IV 09/18/24 11:45 09/20/24 12:36 5.555 MLS/HR Enoxaparin Sodium 100 mg Q12HR SC 09/19/24 22:00 09/20/24 09:51 100 MG Examination: GENERAL:Abnormal, LUNGS:Abnormal, MSK:Abnormal, NEURO:Abnormal laboratory and microbiology Laboratory Tests 09/20/24 11:29 09/20/24 03:41 Test 09/20/24 03:41 Range/Units Serum Glucose 108 H 74-106 mg/dL Microbiology Date/Time Source Procedure Growth Status 09/11/24 14:35 Blood Blood Culture - Final Staphylococcus epidermidis Complete 09/11/24 00:00 Voided Urine Urine Culture - Final Complete 09/08/24 14:33 Bronchial Washings Gram Stain - Final Complete 09/08/24 14:33 Bronchial Washings Respiratory Culture - Final Complete 09/06/24 13:00 Vaginal Vaginal Culture - Final Enterococcus faecalis Methicillin Resistant S.aureus Complete 09/04/24 20:40 Nose MRSA Screen - Final Complete Problem List/Assessment/Plan Problem List/Assessment/Plan Acute kidney injury superimposed Chronic Kidney Disease secondary to hemodynamic etiology +/- tubular injury s/p HD intermittent Acute respiratory failure, patient intubated on ventilator CKD stage III Septic shock with multiorgan involvement history of PE Hyperkalemia Vancomycin toxicity recs renal function better free water for sodium correction dc ivf Plan discussed with: Other Dietary Evaluation Review Comments: 1. Consider EN/TPN if NPO >7days 2. Continue plan of care Expected Outcomes/Goals: 1. Pt will meet >75% of estimated needs within 2-3 days NAILA IBARRA MD Sep 20, 2024 15:17
[2024-09-20] MEDS: POTASSIUM EFFERVESENT TAB 25 MEQ GT ONE (15:25)
[2024-09-20] MEDS: FUROSEMIDE 20 MG/2 ML VIAL IV ONE (15:27)
[2024-09-20] MEDS: FREE WATER GT SCH (17:29)
--- NOTE | 2024-09-20 20:21 | DVHPNRES ---
Progress Note Date Seen: Sep 20, 2024 Resident Creating Document: DAVID RIDDLE YENNI Has the PT tested + for MRSA If YES, has PT been informed?: Yes Medical Necessity Reason Pt with a Central, PICC or Fol: Yes The following are medically ne: Betancourt Catheter Reason for betancourt catheter: Strict I&O Subjective Review of Systems 63 yo morbidly obese with past history of pulmonary emboli, knee surgery (2015) ,multiple (6) abdominal surgery for hernia (2015) and bowel obstruction (2019) and multiple drug abuse brought to the hospital with shortness of breaths. Admitted and intubated on 09/02. Today, Patient seen examined at the bedside. Patient is sedated and on mechanical ventilation. Review of system could not obtain. Patient reports: No new complaints, Feels better Objective vital signs Vital Sign Date Time Temp Pulse Resp B/P (MAP) Pulse Ox O2 Delivery O2 Flow Rate FiO2 09/20/24 18:45 76 13 111/62 (78) 94 09/20/24 18:25 Mechanical Ventilator 09/20/24 18:25 35 09/20/24 16:00 99.5 99.5 Total Intake and Output 09/19/24 09/19/24 09/20/24 15:00 23:00 07:00 Intake Total 700 ml 620 ml 600 ml Output Total 1700 ml 700 ml Balance 700 ml -1080 ml -100 ml medications Current Medications Medications Dose Ordered Sig/[place] Route Start Time Stop Time Status Last Admin Dose Admin Albuterol 2.5 mg Q4HWA PRN NEB 09/02/24 18:30 09/20/24 18:24 2.5 MG Ipratropium [place] 0.5 mg Q4HWA PRN NEB 09/02/24 18:30 09/20/24 18:24 0.5 MG Acetaminophen 650 mg Q4HP PRN GT 09/03/24 10:00 09/03/24 10:21 650 MG Pantoprazole Sodium 40 mg DAILY IV 09/04/24 10:00 09/20/24 09:51 40 MG Docusate Sodium 200 mg BID NG 09/06/24 22:00 09/20/24 09:51 200 MG Acetylcysteine 200 mg Q8HR NEB 09/07/24 14:00 09/20/24 18:25 200 MG Atorvastatin Calcium 40 mg HS PO 09/07/24 22:00 09/19/24 21:55 40 MG Enteral Nutritional Formula 1,000 ml 30ML/HR GT 09/10/24 13:15 09/18/24 21:31 1,000 ML Sodium Chloride 10 ml QSHIFT@10,22 IV 09/13/24 22:00 09/20/24 09:51 10 ML Fentanyl Citrate 250 ml @ 2.5 mls/hr Q24H IV 09/14/24 07:30 09/17/24 19:48 15 MLS/HR Metoclopramide HCl 5 mg Q8HR IV 09/15/24 14:00 09/20/24 15:26 5 MG Dexmedetomidine HCl 400 mcg/ Dextrose 100 ml @ 5.555 mls/ hr Q18H1M IV 09/18/24 11:45 09/20/24 12:36 5.555 MLS/HR Enoxaparin Sodium 100 mg Q12HR SC 09/19/24 22:00 09/20/24 09:51 100 MG Purified Water 150 ml Q6HR GT 09/20/24 18:00 09/20/24 17:29 150 ML Examination General: RASS 0 afebrile, mucosae are moist Cardiovascular: Normal S1 and S2. No murmurs, gallops or rubs Respiratory: Mechanically assisted ventilation, equal bilateral airway entree. Clear lung sounds on auscultation Abdomen: Soft, nontender, no organomegaly, normal bowel sounds MSK/skin: Mobilization of limbs cannot be evaluated. Skin is dry and warm. T race bilateral pedal edema Neurological: Orientation cannot be assessed. No apparent motor no sensitive deficits. Pupils are isocoric and reactive laboratory and microbiology Laboratory Tests 09/20/24 11:29 09/20/24 03:41 Test 09/20/24 03:41 Range/Units Serum Glucose 108 H 74-106 mg/dL Microbiology Date/Time Source Procedure Growth Status 09/11/24 14:35 Blood Blood Culture - Final Staphylococcus epidermidis Complete 09/11/24 00:00 Voided Urine Urine Culture - Final Complete 09/08/24 14:33 Bronchial Washings Gram Stain - Final Complete 09/08/24 14:33 Bronchial Washings Respiratory Culture - Final Complete 09/06/24 13:00 Vaginal Vaginal Culture - Final Enterococcus faecalis Methicillin Resistant S.aureus Complete 09/04/24 20:40 Nose MRSA Screen - Final Complete Labs and/or images reviewed: Labs reviewed by me, Image(s) reviewed by me Problem List/Assessment/Plan Problem List/Assessment/Plan NEURO: Acute metabolic encephalopathy likely due to septic shock Patient is sedated and on mechanical ventilation with RASS score 0 CARDIOVASCULAR: NSTEMI type 2 likely due to septic shock Has history of pulmonary emboli in 2016 Cardiology on the board, recommended conservative management Echocardiogram shows mild LVH with mild LV diastolic dysfunction with ejection fraction of 65 Chest x-ray shows pulmonary congestion, injection Lasix 20 mg given PULMONARY: Patient is sedated and on mechanical ventilation with volume control mode with VT 450, RR 18, peep 5, FiO2 35% Acute Hypoxic respiratory failure, likely due to pneumonia Septic shock likely due to pneumonia Pneumonia due to MRSA Bronchoscopy performed on 09/07 shows lots of secretion on the left main bronchus, bronchial lavage results shows MRSA Bronchoscopy was repeated on 09/08, shows less mucus secretion in compared to previous bronchoscopy Blood culture from 09/02/2024 shows staph hominis sensitive to vancomycin Sputum culture from 09/02/2024 shows MRSA, Streptococcus pneumoniae vancomycin Influenza and COVID-19 screening negative Blood culture from 09/11 shows Staphylococcus epidermidis, sensitive to vancomycin Cefepime was given for 5 days from to 09/06, meropenem given for 3 days from 09/03 to 09/05, vancomycin given 14 days from 09/03 to, ceftriaxone 2 g daily was given for 6 days from 09/13 to 09/19, linezolid given for 7 days from 09/11 to 09/17 Continue N-acetylcysteine Continue breathing treatment Chest x-ray shows bilateral infiltration, likely due to congestion, Lasix 20 mg once given ABGs shows mild respiratory alkalosis with pH 7.471 CPAP trial failed on 09/19 Today, CPAP trial failed, due to tachypnea at 40s and respiratory distress Breathing treatment q.4 hours as needed CPAP trial tomorrow GI: Patient has history of multiple surgery of hernia(2015) and bowel obstruction(2019) Abdominal ventral hernias, abdominal CT scan shows multiple ventral wall hernias containing fat and bowel with mild dilatation of proximal jejunum loops with jejunal loops course into the abdominal hernia Possible bowel obstruction, surgery consulted, recommended conservative management, suggested that small bowel series could not perform at the moment due to respiratory status of the patient Transaminitis, likely ischemic secondary to septic shock Patient had 1 bowel movement last night Bowel regimen: Docusate GI ppx: Protonix RENAL: FEDE , likely hemodynamically mediated, improved Nephrology on the board, last HD session on 09/10 Hypernatremia Discontinue D5W Free water 150 mL q.6 hours Possible rhabdomyolysis, likely due to immobilization Creatinine kinase is raised at 8215, downtrending CK at am ENDOCRINE: Hypertriglyceridemia, TG 623 09/04, 320 at 09/15 Likely due to propofol, discontinued propofol Continue Atorvastatin 40 mg ID: Sputum cultures from 09/02/2024 shows MRSA, Streptococcus pneumoniae Blood culture from 09/02/2024 shows Staph hominis Results from bronchial washing, from 09/07/2024 shows no growth after 24 hours ID on the board, suggested that the culture results are probably due to contamination and recommended to repeat the culture Blood culture from 09/11 shows Staphylococcus epidermidis, likely due to continue Possible PID Patient had purulent vaginal discharge Vaginal bacterial culture, shows coagulase-negative Staphylococcus with few growth of possible Enterococcus species Metabolic: Hyperkalemia, improved Hyponatremia, improved Hypokalemia, supplemented Hypomagnesemia, supplemented Hypernatremia, monitoring Multidrug abuser: Per patient's daughter, she is a current user of amphetamine, marijuana and smoking cigarettes Hepatitis B and C serology negative HIV is negative Heme: DVT Doppler ultrasound of lower limb at 08/15 shows, nonocclusive DVT at left popliteal vein Lovenox 100 mg b.i.d. LINES/DRAINS/ACCESS: ETT, intubated on 09/02/2024 IV access Left upper arm PICC line, placed on 09/13 Drips: Precedex 0.2 DVT ppx: Therapeutic dose of Lovenox DIET: Jevity 30 mL/hour CODE STATUS: Full code Patient's status was updated with the patient's daughter on the phone. Critical time spent more than 84 minutes, including patient care, chart review and updating the family, excluding any procedures. Case discussed with Dr. Pinon Plan discussed with: Patient My Orders My Orders Orders - DAVID RIDDLE Procedure Category Date Status Time Cpap/Sed Vacation Med ORDERS 09/20/24 Transmitted Weaning 10:31 Free Water PHA 09/20/24 In Process 18:00 Complete Blood Count LAB 09/21/24 Verified 04:00 Comprehensive LAB 09/21/24 Verified Metabolic Panel 04:00 Chest Xray 1 View XY 09/21/24 Logged 04:00 Abg W/ Co-Ox RT 09/21/24 Logged 04:00 Dietary Evaluation Review Comments: 1. Consider EN/TPN if NPO >7days 2. Continue plan of care Expected Outcomes/Goals: 1. Pt will meet >75% of estimated needs within 2-3 days Date of Service: Sep 20, 2024 Billing Provider: DANE PINON MD Common Visit Codes: 78711-[id number] CARE 30-74 MIN, [id number] CARE-EACH +30MIN DAVID RIDDLE RESDIRAYMOND Sep 20, 2024 20:21 DANE PINON MD Sep 21, 2024 14:53
--- NOTE | 2024-09-20 21:24 | DVHPN2 ---
Progress Note - Dictate Date Seen: Sep 20, 2024 Has the PT tested + for MRSA If YES, has PT been informed?: Yes Medical Necessity Reason Pt with a Central, PICC or Fol: Yes The following are medically ne: Betancourt Catheter Reason for betancourt catheter: Strict I&O Subjective Patient was seen and evaluated in follow up in the ICU. Patient is intubated and sedated on ventilator. FiO2 35%. Chest x-ray continues to show multifocal airspace disease. NA 151, BUN 33, AST 60, ALT 80. vital signs Vital Sign Date Time Temp Pulse Resp B/P (MAP) Pulse Ox O2 Delivery O2 Flow Rate FiO2 09/20/24 21:00 77 22 121/64 (83) 96 09/20/24 20:15 35 09/20/24 20:00 99.1 99.1 09/20/24 20:00 Mechanical Ventilator+ Total Intake and Output 09/19/24 09/19/24 09/20/24 15:00 23:00 07:00 Intake Total 700 ml 620 ml 600 ml Output Total 1700 ml 700 ml Balance 700 ml -1080 ml -100 ml medications Current Medications Medications Dose Ordered Sig/[place] Route Start Time Stop Time Status Last Admin Dose Admin Albuterol 2.5 mg Q4HWA PRN NEB 09/02/24 18:30 09/20/24 18:24 2.5 MG Ipratropium [place] 0.5 mg Q4HWA PRN NEB 09/02/24 18:30 09/20/24 18:24 0.5 MG Acetaminophen 650 mg Q4HP PRN GT 09/03/24 10:00 09/03/24 10:21 650 MG Pantoprazole Sodium 40 mg DAILY IV 09/04/24 10:00 09/20/24 09:51 40 MG Docusate Sodium 200 mg BID NG 09/06/24 22:00 09/20/24 09:51 200 MG Acetylcysteine 200 mg Q8HR NEB 09/07/24 14:00 09/20/24 18:25 200 MG Atorvastatin Calcium 40 mg HS PO 09/07/24 22:00 09/19/24 21:55 40 MG Enteral Nutritional Formula 1,000 ml 30ML/HR GT 09/10/24 13:15 09/18/24 21:31 1,000 ML Sodium Chloride 10 ml QSHIFT@ IV 09/13/24 22:00 09/20/24 09:51 10 ML Fentanyl Citrate 250 ml @ 2.5 mls/hr Q24H IV 09/14/24 07:30 09/17/24 19:48 15 MLS/HR Metoclopramide HCl 5 mg Q8HR IV 09/15/24 14:00 09/20/24 15:26 5 MG Dexmedetomidine HCl 400 mcg/ Dextrose 100 ml @ 5.555 mls/ hr Q18H1M IV 09/18/24 11:45 09/20/24 12:36 5.555 MLS/HR Enoxaparin Sodium 100 mg Q12HR SC 09/19/24 22:00 09/20/24 09:51 100 MG Purified Water 150 ml Q6HR GT 09/20/24 18:00 09/20/24 17:29 150 ML objective GENERAL: Intubated on ventilator. Morbidly obese LUNGS: Decreased breath sounds. CARDIOVASCULAR: Heart sounds are good. ABDOMEN: Soft. Morbid pannus limited physical palpation. SKIN: Multiple scars to abdomen. Two open areas on abdomen with oozing wounds. laboratory and microbiology Laboratory Tests 09/20/24 11:29 09/20/24 03:41 Test 09/20/24 03:41 Range/Units Serum Glucose 108 H 74-106 mg/dL Problem List Septic shock. Acute on chronic respiratory failure. NSTEMI type II secondary to above. Rule out structural heart disease. Prolonged QT interval. Morbid obesity, Class 3. Assessment/Plan Continued all current supportive medical care. Lipitor. DVT and GI prophylactics. Vasopressors for hemodynamic support. Additional plan as per the hospital course. Critical care time of 45 minutes provided to include time spent evaluation of patient at bedside, when appropriate patient/family education for diagnosis, treatment plan, review of pertinent medical information and discussion of care with specialty providers and PCP. Mechanical ventilator parameters, treatment and adjustments have personally been reviewed by me and treatment plan by financial internship has also been reviewed. Dietary Evaluation Review Comments: 1. Consider EN/TPN if NPO >7days 2. Continue plan of care Expected Outcomes/Goals: 1. Pt will meet >75% of estimated needs within 2-3 days Plan discussed with: Other RELL STEWART MD Sep 20, 2024 21:23
--- NOTE | 2024-09-20 23:34 | DVHPN2 ---
Progress Note - Dictate Date Seen: Sep 20, 2024 Has the PT tested + for MRSA If YES, has PT been informed?: Yes Medical Necessity Reason Pt with a Central, PICC or Fol: Yes The following are medically ne: Betancourt Catheter Reason for betancourt catheter: Strict I&O Subjective She is sedated and intubated on mechanical ventilation. No new acute complaints noted. Patient placed on CPAP. Early this morning, patient was having frequent PVCs on the gambling monitor. Chest x-ray is unchanged. White count trending down, currently at 14.3. 09/18, Chest x-ray: There are low lung volumes. Support lines and tubes appear unchanged in satisfactory position. Small bilateral pleural effusions with mild pulmonary vascular congestion. No pneumothorax. 09/20 Chest x-ray continues to show multifocal airspace disease. vital signs Vital Sign Date Time Temp Pulse Resp B/P (MAP) Pulse Ox O2 Delivery O2 Flow Rate FiO2 09/20/24 22:17 76 22 99/52 (68) 99 35 09/20/24 22:00 Mechanical Ventilator+ 09/20/24 20:00 99.1 99.1 Total Intake and Output 09/19/24 09/19/24 09/20/24 15:00 23:00 07:00 Intake Total 700 ml 620 ml 600 ml Output Total 1700 ml 700 ml Balance 700 ml -1080 ml -100 ml medications Current Medications Medications Dose Ordered Sig/[place] Route Start Time Stop Time Status Last Admin Dose Admin Albuterol 2.5 mg Q4HWA PRN NEB 09/02/24 18:30 09/20/24 22:17 2.5 MG Ipratropium [place] 0.5 mg Q4HWA PRN NEB 09/02/24 18:30 09/20/24 22:17 0.5 MG Acetaminophen 650 mg Q4HP PRN GT 09/03/24 10:00 09/03/24 10:21 650 MG Pantoprazole Sodium 40 mg DAILY IV 09/04/24 10:00 09/20/24 09:51 40 MG Docusate Sodium 200 mg BID NG 09/06/24 22:00 09/20/24 21:56 200 MG Acetylcysteine 200 mg Q8HR NEB 09/07/24 14:00 09/20/24 18:25 200 MG Atorvastatin Calcium 40 mg HS PO 09/07/24 22:00 09/20/24 21:56 40 MG Enteral Nutritional Formula 1,000 ml 30ML/HR GT 09/10/24 13:15 09/18/24 21:31 1,000 ML Sodium Chloride 10 ml QSHIFT@10,22 IV 09/13/24 22:00 09/20/24 21:56 10 ML Fentanyl Citrate 250 ml @ 2.5 mls/hr Q24H IV 09/14/24 07:30 09/17/24 19:48 15 MLS/HR Metoclopramide HCl 5 mg Q8HR IV 09/15/24 14:00 09/20/24 21:56 5 MG Dexmedetomidine HCl 400 mcg/ Dextrose 100 ml @ 5.555 mls/ hr Q18H1M IV 09/18/24 11:45 09/20/24 12:36 5.555 MLS/HR Enoxaparin Sodium 100 mg Q12HR SC 09/19/24 22:00 09/20/24 21:56 100 MG Purified Water 150 ml Q6HR GT 09/20/24 18:00 09/20/24 17:29 150 ML objective General: Intubated and sedated HEENT: Atraumatic,intubated Neck: No swelling Lungs: Equal air entry and clear to auscultation Cardiovascular: S1 S2 heard no murmur Abdomen: Soft nontender, no organomegaly, nondistended Neuro: sedated, unable to assess Psych: unable to assess laboratory and microbiology Laboratory Tests 09/20/24 11:29 09/20/24 03:41 Test 09/20/24 03:41 Range/Units Serum Glucose 108 H 74-106 mg/dL Assessment/Plan Patient is a 63-year-old female presented to the hospital with: Staphylococcus aureus pneumonia ( MRSA) Streptococcus Pneumoniae pneumonia Septic shock resolving bacteremia : coag neg staphylococccus Acute Respiratory Failure [requiring mechanical ventilation] severe hypoxia Metabolic acidosis FEDE Morbidly obese BMI = 40 PE history Recommendations: antibiotics review Cefepime 09/02- 09/06 Meropenem 09/03-09/05 Ceftriaxone 09/07-ongoing last given 09/18 Vancomycin 09/03- 09/11 Linezolid 09/11- ongoing - 09/17 last given overall, patient has received rx for MRSA pneumonia from 09/03 until now. total 14 days, stopped antibiotics respiratory status is stable on vent. Blood culture:co ag neg staph, i think its contaminated. Recent on 09/07 showed no growth 09/11 : show Gram Positive Cocci in clusters Pulmonary on board for vent management full code prognosis guarded crit time 35 mins spent during the encounter. Thank you for consult and for giving an opportunity to take care of this patient. Dietary Evaluation Review Comments: 1. Consider EN/TPN if NPO >7days 2. Continue plan of care Expected Outcomes/Goals: 1. Pt will meet >75% of estimated needs within 2-3 days Plan discussed with: Other ANGELLA REYES MD Sep 20, 2024 23:34
[2024-09-21] VITALS (86 sets, daily range): BP systolic 88–141; BP diastolic 49–78; PULSE 63–88; RESP 15–39; TEMP 98.6–99.6; O2SAT 89–100
[2024-09-21 03:58] LABS: Basophils # (auto) 0.1 10 ^3/uL (0-0.2); Basophils % (auto) 1.3 % (0.0-2.0); Eosinophils # (auto) 0.3 10 ^3/uL (0-0.8); Eosinophils % (auto) 2.9 % (0.0-7.0); Hematocrit 33.7 % (36.0-46.0); Lymphocytes # (auto) 1.5 10 ^3/uL (0.4-5.4); Lymphocytes % (auto) 14.2 % (10.0-50.0); Mean Corpuscular Hgb Conc. 32.5 g/dL (32.0-36.0); Mean Corpuscular Volume 92.4 fL (80.0-100.0); Monocytes # (auto) 0.7 10 ^3/uL (0-1.3); Monocytes % (auto) 6.9 % (0.0-12.0); Neutrophils # (auto) 7.7 10 ^3/uL (1.6-8.6); Neutrophils % (auto) 74.7 % (37.0-80.0); Nucleated Red Blood Cells % 0.1 %; Platelet Count (auto) 328 10^3/uL (140-450); Red Blood Cells 3.65 10^6/uL (4.0-5.20); Red Cell Distribution Width 14.1 % (11.8-14.3); White Blood Cell 10.4 10^3/uL (4.4-10.8)
[2024-09-21 04:11] LABS: Calcium 9.9 mg/dL (8.7-10.4); Carbon Dioxide 28 mmol/L (20-31); Glucose 99 mg/dL (74-106)
[2024-09-21 04:12] LABS: Albumin 3.3 g/dL (3.2-4.8); Anion Gap 10 (5-15); Bilirubin, Total 0.5 mg/dL (0.2-1.0); Creatine Kinase IFCC 77 U/L (34-145); Total Protein 5.8 g/dL (5.7-8.2)
[2024-09-21 04:14] LABS: Alanine Aminotransferase 82 U/L (7-40); Alkaline Phosphatase 121 U/L (46-116); Aspartate Aminotransferase 53 U/L (13-40); Blood Urea Nitrogen 30 mg/dL (9-23); Chloride 115 mmol/L (98-107); Sodium 153 mmol/L (136-145)
--- NOTE | 2024-09-21 05:02 | DVH ---
CHEST RADIOGRAPH Indication: Pneumonia Technique: Single frontal view of the chest was obtained Comparison: XY CHEST PORTABLE on DOS: 09/20/24, XY CHEST PORTABLE on DOS: 09/19/24, XY CHEST XRAY 1 VIE W on DOS: 09/18/24 IMPRESSION: There are low lung volumes with bilateral pleural effusions. The heart appears enlarged, stable. End otracheal tube and enteric tube are unchanged in satisfactory position. No pneumothorax.
[2024-09-21 07:58] LABS: Base Excess 1.3 mmol/L (-2.0-3.0)
[2024-09-21] MEDS: FUROSEMIDE 20 MG/2 ML VIAL IV ONE (09:36)
[2024-09-21 10:11] LABS: Base Excess 1.2 mmol/L (-2.0-3.0)
[2024-09-21 10:47] LABS: Base Excess 1.2 mmol/L (-2.0-3.0)
--- NOTE | 2024-09-21 19:13 | DVHPNRES ---
Progress Note Date Seen: Sep 21, 2024 Resident Creating Document: DAVID RIDDLE YENNI Has the PT tested + for MRSA If YES, has PT been informed?: Yes Medical Necessity Reason Pt with a Central, PICC or Fol: Yes The following are medically ne: Betancourt Catheter Reason for betancourt catheter: Strict I&O Subjective Review of Systems 63 yo morbidly obese with past history of pulmonary emboli, knee surgery (2015) ,multiple (6) abdominal surgery for hernia (2015) and bowel obstruction (2019) and multiple drug abuse brought to the hospital with shortness of breaths. Admitted and intubated on 09/02. Today, Patient seen examined at the bedside. Patient is sedated and on mechanical ventilation. CPAP trial performed and the patient extubated successfully. Patient reports: No new complaints, Feels better Changes from previous H/P or p: Changes Objective vital signs Vital Sign Date Time Temp Pulse Resp B/P (MAP) Pulse Ox O2 Delivery O2 Flow Rate FiO2 09/21/24 18:15 81 25 129/75 (93) 91 09/21/24 18:00 Nasal Cannula* 1 24 09/21/24 16:00 98.6 98.6 Total Intake and Output 09/20/24 09/20/24 09/21/24 15:00 23:00 07:00 Intake Total 1366.665 ml 315.440 ml 244.440 ml Output Total 525 ml 700 ml Balance 1366.665 ml -209.560 ml -455.560 ml medications Current Medications Medications Dose Ordered Sig/Acacia Route Start Time Stop Time Status Last Admin Dose Admin Acetaminophen 650 mg Q4HP PRN GT 09/03/24 10:00 09/03/24 10:21 650 MG Pantoprazole Sodium 40 mg DAILY IV 09/04/24 10:00 09/21/24 09:36 40 MG Docusate Sodium 200 mg BID NG 09/06/24 22:00 09/21/24 09:37 200 MG Atorvastatin Calcium 40 mg HS PO 09/07/24 22:00 09/20/24 21:56 40 MG Sodium Chloride 10 ml QSHIFT@, IV 09/13/24 22:00 09/21/24 09:37 10 ML Metoclopramide HCl 5 mg Q8HR IV 09/15/24 14:00 09/21/24 05:36 5 MG Enoxaparin Sodium 100 mg Q12HR SC 09/19/24 22:00 09/21/24 09:37 100 MG Examination General: RASS 0 afebrile, mucosae are moist Cardiovascular: Normal S1 and S2. No murmurs, gallops or rubs Respiratory: Mechanically assisted ventilation, equal bilateral airway entree. Clear lung sounds on auscultation Abdomen: Soft, nontender, no organomegaly, normal bowel sounds MSK/skin: Mobilization of limbs cannot be evaluated. Skin is dry and warm. T race bilateral pedal edema Neurological: Orientation cannot be assessed. No apparent motor no sensitive deficits. Pupils are isocoric and reactive laboratory and microbiology Laboratory Tests 09/21/24 03:09 Test 09/21/24 03:09 Range/Units Serum Glucose 99 74-106 mg/dL Microbiology Date/Time Source Procedure Growth Status 09/11/24 14:35 Blood Blood Culture - Final Staphylococcus epidermidis Complete 09/11/24 00:00 Voided Urine Urine Culture - Final Complete 09/08/24 14:33 Bronchial Washings Gram Stain - Final Complete 09/08/24 14:33 Bronchial Washings Respiratory Culture - Final Complete 09/06/24 13:00 Vaginal Vaginal Culture - Final Enterococcus faecalis Methicillin Resistant S.aureus Complete 09/04/24 20:40 Nose MRSA Screen - Final Complete Labs and/or images reviewed: Labs reviewed by me, Image(s) reviewed by me Problem List/Assessment/Plan Problem List/Assessment/Plan NEURO: Acute metabolic encephalopathy likely due to septic shock CARDIOVASCULAR: NSTEMI type 2 likely due to septic shock Has history of pulmonary emboli in 2016 Cardiology on the board, recommended conservative management Echocardiogram shows mild LVH with mild LV diastolic dysfunction with ejection fraction of 65 Chest x-ray shows pulmonary congestion, injection Lasix 20 mg given PULMONARY: Acute Hypoxic respiratory failure, likely due to pneumonia Septic shock likely due to pneumonia Pneumonia due to MRSA Bronchoscopy performed on 09/07 shows lots of secretion on the left main bronchus, bronchial lavage results shows MRSA Bronchoscopy was repeated on 09/08, shows less mucus secretion in compared to previous bronchoscopy Blood culture from 09/02/2024 shows staph hominis sensitive to vancomycin Sputum culture from 09/02/2024 shows MRSA, Streptococcus pneumoniae vancomycin Influenza and COVID-19 screening negative Blood culture from 09/11 shows Staphylococcus epidermidis, sensitive to vancomycin Cefepime was given for 5 days from 09/02t to 09/06, meropenem given for 3 days from 09/03 to 09/05, vancomycin given 14 days from 09/03 to, ceftriaxone 2 g daily was given for 6 days from 09/13 to 09/19, linezolid given for 7 days from 09/11 to 09/17 Continue N-acetylcysteine Chest x-ray shows bilateral infiltration, likely due to congestion, Lasix 20 mg once given ABGs shows mild respiratory alkalosis with pH 7.471 Breathing treatment q.6 hours as needed CPAP trial performed and the patient extubated successfully and could maintain O2 with 2 lit through NC PT evaluation Swallow evaluation GI: Patient has history of multiple surgery of hernia(2015) and bowel obstruction(2019) Abdominal ventral hernias, abdominal CT scan shows multiple ventral wall hernias containing fat and bowel with mild dilatation of proximal jejunum loops with jejunal loops course into the abdominal hernia Possible bowel obstruction, surgery consulted, recommended conservative management, suggested that small bowel series could not perform at the moment due to respiratory status of the patient Transaminitis, likely ischemic secondary to septic shock Patient had 1 bowel movement last night Bowel regimen: Docusate GI ppx: Protonix RENAL: FEDE , likely hemodynamically mediated, improved Nephrology on the board, last HD session on 09/10 Hypernatremia Discontinue D5W D5W 75ml per hour Possible rhabdomyolysis, likely due to immobilization Creatinine kinase is raised at 8215, downtrending CK at am ENDOCRINE: Hypertriglyceridemia, TG 623 09/04, 320 at / Likely due to propofol, discontinued propofol Continue Atorvastatin 40 mg ID: Sputum cultures from 09/02/2024 shows MRSA, Streptococcus pneumoniae Blood culture from 09/02/2024 shows Staph hominis Results from bronchial washing, from 09/07/2024 shows no growth after 24 hours ID on the board, suggested that the culture results are probably due to contamination and recommended to repeat the culture Blood culture from 09/11 shows Staphylococcus epidermidis, likely due to continue Possible PID Patient had purulent vaginal discharge Vaginal bacterial culture, shows coagulase-negative Staphylococcus with few growth of possible Enterococcus species Metabolic: Hyperkalemia, improved Hyponatremia, improved Hypokalemia, supplemented Hypomagnesemia, supplemented Hypernatremia, monitoring Multidrug abuser: Per patient's daughter, she is a current user of amphetamine, marijuana and smoking cigarettes Hepatitis B and C serology negative HIV is negative Heme: DVT Doppler ultrasound of lower limb at 08/15 shows, nonocclusive DVT at left popliteal vein Lovenox 100 mg b.i.d. LINES/DRAINS/ACCESS: ETT, intubated on 09/02/2024 IV access Left upper arm PICC line, placed on 09/13 Drips: DVT ppx: Therapeutic dose of Lovenox DIET: Purred cardiac diet CODE STATUS: Full code Patient's status was updated with the patient's daughter on the phone. Critical time spent more than 84 minutes, including patient care, chart review and updating the family, excluding any procedures. Case discussed with Dr. Pinon Plan discussed with: Patient, Daughter, Other (RN) My Orders My Orders Orders - DAVID RIDDLE RESDIRAYMOND Procedure Category Date Status Time Cpap Trial For Am ORDERS 09/21/24 Transmitted 07:16 Abg W/ Co-Ox RT 09/21/24 Logged 09:45 Extubate SIMRAN 09/21/24 In Process 10:12 Oxygen Via Cool Mist RT 09/21/24 Transmitted Mask 10:12 Pt Request For Service PT 09/21/24 Logged 12:29 * Swallow Request ST 09/21/24 Transmitted 12:29 Cardiac DIET 09/21/24 Transmitted Diet-2gna,Lofat,Lochol Dinner Pureed DIET 09/21/24 Transmitted Dinner Dietary Evaluation Review Comments: 1. Consider EN/TPN if NPO >7days 2. Continue plan of care Expected Outcomes/Goals: 1. Pt will meet >75% of estimated needs within 2-3 days Date of Service: Sep 21, 2024 Billing Provider: DANE PINON MD Common Visit Codes: 01546-[id number] CARE 30-74 MIN, [id number] CARE-EACH +30MIN DAVID RIDDLE RESDIENT Sep 21, 2024 19:13 DANE PINON MD Sep 22, 2024 10:38
[2024-09-21] MEDS: D5W 5% 1,000 ML IV SCH (20:29)
--- NOTE | 2024-09-21 21:15 | DVHPN2 ---
Progress Note Date Seen: Sep 21, 2024 Has the PT tested + for MRSA If YES, has PT been informed?: Yes Medical Necessity Reason Pt with a Central, PICC or Fol: Yes The following are medically ne: Betancourt Catheter Reason for betancourt catheter: Strict I&O Subjective Patient reports: Other (cpap ongoing) Review of Systems: Deferred Objective vital signs Vital Sign Date Time Temp Pulse Resp B/P (MAP) Pulse Ox O2 Delivery O2 Flow Rate FiO2 09/21/24 21:00 86 17 135/71 (92) 90 09/21/24 20:00 Nasal Cannula* 1 09/21/24 20:00 99.6 99.6 Total Intake and Output 09/20/24 09/20/24 09/21/24 15:00 23:00 07:00 Intake Total 1366.665 ml 315.440 ml 244.440 ml Output Total 525 ml 700 ml Balance 1366.665 ml -209.560 ml -455.560 ml medications Current Medications Medications Dose Ordered Sig/Acacia Route Start Time Stop Time Status Last Admin Dose Admin Acetaminophen 650 mg Q4HP PRN GT 09/03/24 10:00 09/03/24 10:21 650 MG Pantoprazole Sodium 40 mg DAILY IV 09/04/24 10:00 09/21/24 09:36 40 MG Docusate Sodium 200 mg BID NG 09/06/24 22:00 09/21/24 09:37 200 MG Atorvastatin Calcium 40 mg HS PO 09/07/24 22:00 09/20/24 21:56 40 MG Sodium Chloride 10 ml QSHIFT@10,22 IV 09/13/24 22:00 09/21/24 09:37 10 ML Metoclopramide HCl 5 mg Q8HR IV 09/15/24 14:00 09/21/24 05:36 5 MG Enoxaparin Sodium 100 mg Q12HR SC 09/19/24 22:00 09/21/24 09:37 100 MG Dextrose 1,000 ml @ 75 mls/hr [id number] IV 09/21/24 19:00 09/21/24 20:29 75 MLS/HR Albuterol 2.5 mg Q6HPRN PRN NEB 09/21/24 19:00 Ipratropium [place] 0.5 mg Q6HPRN PRN NEB 09/21/24 19:00 Examination: GENERAL:Abnormal, LUNGS:Abnormal, CVS:Normal, MSK:Normal, NEURO:Normal laboratory and microbiology Laboratory Tests 09/21/24 03:09 Test 09/21/24 03:09 Range/Units Serum Glucose 99 74-106 mg/dL Microbiology Date/Time Source Procedure Growth Status 09/11/24 14:35 Blood Blood Culture - Final Staphylococcus epidermidis Complete 09/11/24 00:00 Voided Urine Urine Culture - Final Complete 09/08/24 14:33 Bronchial Washings Gram Stain - Final Complete 09/08/24 14:33 Bronchial Washings Respiratory Culture - Final Complete 09/06/24 13:00 Vaginal Vaginal Culture - Final Enterococcus faecalis Methicillin Resistant S.aureus Complete 09/04/24 20:40 Nose MRSA Screen - Final Complete Problem List/Assessment/Plan Problem List/Assessment/Plan Acute kidney injury superimposed Chronic Kidney Disease secondary to hemodynamic etiology +/- tubular injury s/p HD intermittent Acute respiratory failure, patient intubated on ventilator CKD stage III Septic shock with multiorgan involvement history of PE Hyperkalemia Vancomycin toxicity hypernatremia recs renal function better on d5w for sodium correction Plan discussed with: Other Dietary Evaluation Review Comments: 1. Consider EN/TPN if NPO >7days 2. Continue plan of care Expected Outcomes/Goals: 1. Pt will meet >75% of estimated needs within 2-3 days NAILA IBARRA MD Sep 21, 2024 21:15
--- NOTE | 2024-09-21 21:35 | DVHPN2 ---
Progress Note - Dictate Date Seen: Sep 21, 2024 Has the PT tested + for MRSA If YES, has PT been informed?: Yes Medical Necessity Reason Pt with a Central, PICC or Fol: Yes The following are medically ne: Betancourt Catheter Reason for betancourt catheter: Strict I&O Subjective She is sedated and intubated on mechanical ventilation. No new acute complaints noted. Patient placed on CPAP. White count trending down, currently at 10.4 09/18, Chest x-ray: There are low lung volumes. Support lines and tubes appear unchanged in satisfactory position. Small bilateral pleural effusions with mild pulmonary vascular congestion. No pneumothorax. 09/20 Chest x-ray continues to show multifocal airspace disease. vital signs Vital Sign Date Time Temp Pulse Resp B/P (MAP) Pulse Ox O2 Delivery O2 Flow Rate FiO2 09/21/24 21:00 86 17 135/71 (92) 90 09/21/24 20:00 Nasal Cannula* 1 24 09/21/24 20:00 99.6 99.6 Total Intake and Output 09/20/24 09/20/24 09/21/24 15:00 23:00 07:00 Intake Total 1366.665 ml 315.440 ml 244.440 ml Output Total 525 ml 700 ml Balance 1366.665 ml -209.560 ml -455.560 ml medications Current Medications Medications Dose Ordered Sig/Acacia Route Start Time Stop Time Status Last Admin Dose Admin Acetaminophen 650 mg Q4HP PRN GT 09/03/24 10:00 09/03/24 10:21 650 MG Pantoprazole Sodium 40 mg DAILY IV 09/04/24 10:00 09/21/24 09:36 40 MG Docusate Sodium 200 mg BID NG 09/06/24 22:00 09/21/24 09:37 200 MG Atorvastatin Calcium 40 mg HS PO 09/07/24 22:00 09/20/24 21:56 40 MG Sodium Chloride 10 ml QSHIFT@10,22 IV 09/13/24 22:00 09/21/24 09:37 10 ML Metoclopramide HCl 5 mg Q8HR IV 09/15/24 14:00 09/21/24 05:36 5 MG Enoxaparin Sodium 100 mg Q12HR SC 09/19/24 22:00 09/21/24 09:37 100 MG Dextrose 1,000 ml @ 75 mls/hr [id number] IV 09/21/24 19:00 09/21/24 20:29 75 MLS/HR Albuterol 2.5 mg Q6HPRN PRN NEB 09/21/24 19:00 Ipratropium [place] 0.5 mg Q6HPRN PRN NEB 09/21/24 19:00 objective General: Intubated and sedated HEENT: Atraumatic,intubated Neck: No swelling Lungs: Equal air entry and clear to auscultation Cardiovascular: S1 S2 heard no murmur Abdomen: Soft nontender, no organomegaly, nondistended Neuro: sedated, unable to assess Psych: unable to assess laboratory and microbiology Laboratory Tests 09/21/24 03:09 Test 09/21/24 03:09 Range/Units Serum Glucose 99 74-106 mg/dL Assessment/Plan Patient is a 63-year-old female presented to the hospital with: Staphylococcus aureus pneumonia ( MRSA) Streptococcus Pneumoniae pneumonia Septic shock resolving bacteremia : coag neg staphylococccus Acute Respiratory Failure [requiring mechanical ventilation] severe hypoxia Metabolic acidosis FEDE Morbidly obese BMI = 40 PE history Recommendations: antibiotics review Cefepime 09/02- 09/06 Meropenem 09/03-09/05 Ceftriaxone 09/07-ongoing last given 09/18 Vancomycin 09/03- 09/11 Linezolid 09/11- ongoing - 09/17 last given overall, patient has received rx for MRSA pneumonia from 09/03 until now. total 14 days, stopped antibiotics ' monitor respiratory status is stable on vent. Blood culture:co ag neg staph, i think its contaminated. Recent on 09/07 showed no growth Pulmonary on board for vent management full code prognosis guarded crit time 35 mins spent during the encounter. Thank you for consult and for giving an opportunity to take care of this patient. Dietary Evaluation Review Comments: 1. Consider EN/TPN if NPO >7days 2. Continue plan of care Expected Outcomes/Goals: 1. Pt will meet >75% of estimated needs within 2-3 days Plan discussed with: ANGELLA Peng MD Sep 21, 2024 21:35
--- NOTE | 2024-09-21 21:45 | DVHPN2 ---
Progress Note - Dictate Date Seen: Sep 21, 2024 Has the PT tested + for MRSA If YES, has PT been informed?: Yes Medical Necessity Reason Pt with a Central, PICC or Fol: Yes The following are medically ne: Betancourt Catheter Reason for betancourt catheter: Strict I&O Subjective Patient was seen and evaluated in follow up in the ICU. CPAP trial performed and the patient extubated successfully. Patient is on 1 LPM NC. Patient c/o some throat discomfort. NA 153, BUN 30. Chest x-ray shows bilateral pleural effusions. vital signs Vital Sign Date Time Temp Pulse Resp B/P (MAP) Pulse Ox O2 Delivery O2 Flow Rate FiO2 09/21/24 21:00 86 17 135/71 (92) 90 09/21/24 20:00 Nasal Cannula* 1 09/21/24 20:00 99.6 99.6 Total Intake and Output 09/20/24 09/20/24 09/21/24 15:00 23:00 07:00 Intake Total 1366.665 ml 315.440 ml 244.440 ml Output Total 525 ml 700 ml Balance 1366.665 ml -209.560 ml -455.560 ml medications Current Medications Medications Dose Ordered Sig/Acacia Route Start Time Stop Time Status Last Admin Dose Admin Acetaminophen 650 mg Q4HP PRN GT 09/03/24 10:00 09/03/24 10:21 650 MG Pantoprazole Sodium 40 mg DAILY IV 09/04/24 10:00 09/21/24 09:36 40 MG Docusate Sodium 200 mg BID NG 09/06/24 22:00 09/21/24 09:37 200 MG Atorvastatin Calcium 40 mg HS PO 09/07/24 22:00 09/20/24 21:56 40 MG Sodium Chloride 10 ml QSHIFT@10,22 IV 09/13/24 22:00 09/21/24 09:37 10 ML Metoclopramide HCl 5 mg Q8HR IV 09/15/24 14:00 09/21/24 05:36 5 MG Enoxaparin Sodium 100 mg Q12HR SC 09/19/24 22:00 09/21/24 09:37 100 MG Dextrose 1,000 ml @ 75 mls/hr [id number] IV 09/21/24 19:00 09/21/24 20:29 75 MLS/HR Albuterol 2.5 mg Q6HPRN PRN NEB 09/21/24 19:00 Ipratropium [place] 0.5 mg Q6HPRN PRN NEB 09/21/24 19:00 objective GENERAL: GENERAL: Awake, alert, oriented. Morbidly obese LUNGS: Decreased breath sounds. CARDIOVASCULAR: Heart sounds are good. ABDOMEN: Soft. Morbid pannus limited physical palpation. SKIN: Multiple scars to abdomen. laboratory and microbiology Laboratory Tests 09/21/24 03:09 Test 09/21/24 03:09 Range/Units Serum Glucose 99 74-106 mg/dL Problem List Septic shock. Acute on chronic respiratory failure. NSTEMI type II secondary to above. Rule out structural heart disease. Prolonged QT interval. Morbid obesity, Class 3. Assessment/Plan Continued all current supportive medical care. Lipitor. DVT and GI prophylactics. Additional plan as per the hospital course. Critical care time of 45 minutes provided to include time spent evaluation of patient at bedside, when appropriate patient/family education for diagnosis, treatment plan, review of pertinent medical information and discussion of care with specialty providers and PCP. Dietary Evaluation Review Comments: 1. Consider EN/TPN if NPO >7days 2. Continue plan of care Expected Outcomes/Goals: 1. Pt will meet >75% of estimated needs within 2-3 days Plan discussed with: Patient RELL STEWART MD Sep 21, 2024 21:45
[2024-09-22] VITALS (50 sets, daily range): BP systolic 64–153; BP diastolic 33–92; PULSE 76–110; RESP 8–42; TEMP 98.4–99.6; O2SAT 84–100
[2024-09-22 03:16] LABS: Basophils # (auto) 0.2 10 ^3/uL (0-0.2); Basophils % (auto) 1.9 % (0.0-2.0); Eosinophils # (auto) 0.4 10 ^3/uL (0-0.8); Eosinophils % (auto) 4.7 % (0.0-7.0); Hematocrit 33.3 % (36.0-46.0); Hemoglobin 10.9 g/dL (12.2-16.2); Lymphocytes # (auto) 1.4 10 ^3/uL (0.4-5.4); Lymphocytes % (auto) 17.4 % (10.0-50.0); Mean Corpuscular Hemoglobin 29.8 pg (28.0-32.0); Mean Corpuscular Hgb Conc. 32.8 g/dL (32.0-36.0); Mean Corpuscular Volume 90.9 fL (80.0-100.0); Monocytes # (auto) 0.6 10 ^3/uL (0-1.3); Neutrophils # (auto) 5.6 10 ^3/uL (1.6-8.6); Platelet Count (auto) 320 10^3/uL (140-450); Red Blood Cells 3.67 10^6/uL (4.0-5.20); White Blood Cell 8.1 10^3/uL (4.4-10.8)
[2024-09-22 03:33] LABS: Albumin 3.3 g/dL (3.2-4.8); Anion Gap 9 (5-15); Aspartate Aminotransferase 33 U/L (13-40); BUN/Creatinine Ratio 36.1 (10.0-20.0); Calcium 9.8 mg/dL (8.7-10.4); Carbon Dioxide 27 mmol/L (20-31); Glucose 89 mg/dL (74-106)
[2024-09-22 03:34] LABS: Bilirubin, Total 0.6 mg/dL (0.2-1.0); Total Protein 5.8 g/dL (5.7-8.2)
[2024-09-22 03:39] LABS: Alanine Aminotransferase 64 U/L (7-40); Alkaline Phosphatase 125 U/L (46-116); Blood Urea Nitrogen 26 mg/dL (9-23); Chloride 116 mmol/L (98-107); Potassium 3.2 mmol/L (3.5-5.1); Sodium 152 mmol/L (136-145)
--- NOTE | 2024-09-22 04:36 | DVH ---
CHEST RADIOGRAPH Indication: Pneumonia Technique: Single frontal view of the chest was obtained Comparison: XY CHEST XRAY 1 VIEW on DOS: 09/21/24, XY CHEST PORTABLE on DOS: 09/20/24, XY CHEST PORTAB LE on DOS: 09/19/24 IMPRESSION: There are low lung volumes with bibasilar atelectasis and possible small pleural effusions. Mild pulm onary vascular congestion. No pneumothorax. There has been interval extubation and removal of the ent hilary tube.
[2024-09-22] MEDS: FUROSEMIDE 40 MG/4 ML VIAL IV ONE ×2 (09:28→10:57)
[2024-09-22] MEDS: FUROSEMIDE 40 MG/4 ML VIAL ONE (09:28)
[2024-09-22] MEDS: POTASSIUM CHL 20MEQ/100ML 100 ML IV SCH (09:30)
[2024-09-22] MEDS ORDERED: VANCOMYCIN PER PHARMACY 0 MG IV SCH (10:45)
[2024-09-22] MEDS ORDERED: levoFLOXacin 500MG 100 ML IV ONE (10:45)
[2024-09-22 10:50] LABS: Base Excess 2.9 mmol/L (-2.0-3.0)
[2024-09-22] MEDS: VANCOMYCIN 1.5GM/300ML 300 ML IV ONE (11:59)
[2024-09-22] MEDS: levoFLOXacin 250MG 50 ML IV SCH (12:00)
--- NOTE | 2024-09-22 18:11 | DVHPN2 ---
Progress Note - Dictate Date Seen: Sep 22, 2024 Has the PT tested + for MRSA If YES, has PT been informed?: Yes Medical Necessity Reason Pt with a Central, PICC or Fol: Yes The following are medically ne: Betancourt Catheter Reason for betancourt catheter: Strict I&O Subjective Patient reports some throat discomfort. She placed on CPAP and extubated successfully. Patient is on 1 LPM NC. White count currently at 8.1. 09/22 Chest x-ray showed: There are low lung volumes with bibasilar atelectasis and possible small pleural effusions. Mild pulmonary vascular congestion. No pneumothorax. There has been interval extubation and removal of the enteric tube. vital signs Vital Sign Date Time Temp Pulse Resp B/P (MAP) Pulse Ox O2 Delivery O2 Flow Rate FiO2 09/22/24 15:13 90 18 96 70.0 90 09/22/24 10:57 140/90 09/22/24 08:51 Non-Rebreather 09/22/24 04:00 99.6 99.6 Total Intake and Output 09/21/24 09/21/24 09/22/24 15:00 23:00 07:00 Intake Total 27.775 ml 285 ml 785 ml Output Total 1475 ml 750 ml Balance 27.775 ml -1190 ml 35 ml medications Current Medications Medications Dose Ordered Sig/Acacia Route Start Time Stop Time Status Last Admin Dose Admin Acetaminophen 650 mg Q4HP PRN GT 09/03/24 10:00 09/03/24 10:21 650 MG Pantoprazole Sodium 40 mg DAILY IV 09/04/24 10:00 09/22/24 10:12 40 MG Sodium Chloride 10 ml QSHIFT@10,22 IV 09/13/24 22:00 09/22/24 10:12 10 ML Enoxaparin Sodium 100 mg Q12HR SC 09/19/24 22:00 09/22/24 10:13 100 MG Albuterol 2.5 mg Q6HPRN PRN NEB 09/21/24 19:00 Ipratropium [place] 0.5 mg Q6HPRN PRN NEB 09/21/24 19:00 Vancomycin HCl 0 ml @ 0 mls/hr UD IV 09/22/24 10:45 Levofloxacin 50 ml @ 50 mls/hr DAILY@1200,1300 IV 09/22/24 12:00 09/22/24 12:00 50 MLS/HR Vancomycin HCl 300 ml @ 200 mls/hr Q12H IV 09/23/24 00:00 objective General: Intubated and sedated HEENT: Atraumatic,intubated Neck: No swelling Lungs: Equal air entry and clear to auscultation Cardiovascular: S1 S2 heard no murmur Abdomen: Soft nontender, no organomegaly, nondistended Neuro: sedated, unable to assess Psych: unable to assess laboratory and microbiology Laboratory Tests 09/22/24 02:47 Test 09/22/24 02:47 Range/Units Serum Glucose 89 74-106 mg/dL Assessment/Plan Recommendations: Patient is a 63-year-old female presented to the hospital with: Staphylococcus aureus pneumonia ( MRSA) Streptococcus Pneumoniae pneumonia Septic shock resolving bacteremia : coag neg staphylococccus, possible contamination Acute Respiratory Failure [requiring mechanical ventilation] severe hypoxia Metabolic acidosis FEDE Morbidly obese BMI = 40 PE history Recommendations: Reintubation on 09/22. 09/22 trach culture is growing preliminary staphylococcus aureus Follow sensitivity Continue IV vancomycin [Restarted today] Antibiotics review Cefepime 09/02- 09/06 Meropenem 09/03-09/05 Ceftriaxone 09/07-ongoing last given 09/18 Vancomycin 09/03- 09/11 Linezolid 09/11- ongoing - 09/17 last given Blood culture:co ag neg staph, i think its contaminated. Recent on 09/07 showed no growth Pulmonary on board for vent management full code prognosis guarded crit time 35 mins spent during the encounter. Thank you for consult and for giving an opportunity to take care of this patient. Dietary Evaluation Review Comments: 1. Consider EN/TPN if NPO >7days 2. Continue plan of care Expected Outcomes/Goals: 1. Pt will meet >75% of estimated needs within 2-3 days Plan discussed with: ANGELLA Peng MD Sep 22, 2024 18:11
--- NOTE | 2024-09-22 18:44 | DVHPN2 ---
Progress Note Date Seen: Sep 22, 2024 Has the PT tested + for MRSA If YES, has PT been informed?: Yes Medical Necessity Reason Pt with a Central, PICC or Fol: Yes The following are medically ne: Betancourt Catheter Reason for betancourt catheter: Strict I&O Subjective Patient reports: Other (extubated to [facility]) Review of Systems: Deferred Objective vital signs Vital Sign Date Time Temp Pulse Resp B/P (MAP) Pulse Ox O2 Delivery O2 Flow Rate FiO2 09/22/24 18:15 94 133/79 98 Facial BiPAP Mask 90 09/22/24 15:13 18 70.0 09/22/24 04:00 99.6 99.6 Total Intake and Output 09/21/24 09/21/24 09/22/24 15:00 23:00 07:00 Intake Total 27.775 ml 285 ml 785 ml Output Total 1475 ml 750 ml Balance 27.775 ml -1190 ml 35 ml medications Current Medications Medications Dose Ordered Sig/Acacia Route Start Time Stop Time Status Last Admin Dose Admin Acetaminophen 650 mg Q4HP PRN GT 09/03/24 10:00 09/03/24 10:21 650 MG Pantoprazole Sodium 40 mg DAILY IV 09/04/24 10:00 09/22/24 10:12 40 MG Sodium Chloride 10 ml QSHIFT@ IV 09/13/24 22:00 09/22/24 10:12 10 ML Enoxaparin Sodium 100 mg Q12HR SC 09/19/24 22:00 09/22/24 10:13 100 MG Albuterol 2.5 mg Q6HPRN PRN NEB 09/21/24 19:00 Ipratropium [place] 0.5 mg Q6HPRN PRN NEB 09/21/24 19:00 Vancomycin HCl 0 ml @ 0 mls/hr UD IV 09/22/24 10:45 Levofloxacin 50 ml @ 50 mls/hr DAILY@1200,1300 IV 09/22/24 12:00 09/22/24 12:00 50 MLS/HR Vancomycin HCl 300 ml @ 200 mls/hr Q12H IV 09/23/24 00:00 Dexmedetomidine HCl 400 mcg/ Dextrose 100 ml @ 5.085 mls/ hr [id number] IV 09/22/24 18:15 Furosemide 40 mg BIDD IV 09/22/24 18:45 UNV Examination: GENERAL:Abnormal, LUNGS:Abnormal, MSK:Abnormal, SKIN:Abnormal, NEURO:Normal laboratory and microbiology Laboratory Tests 09/22/24 02:47 Test 09/22/24 02:47 Range/Units Serum Glucose 89 74-106 mg/dL Microbiology Date/Time Source Procedure Growth Status 09/11/24 14:35 Blood Blood Culture - Final Staphylococcus epidermidis Complete 09/11/24 00:00 Voided Urine Urine Culture - Final Complete 09/08/24 14:33 Bronchial Washings Gram Stain - Final Complete 09/08/24 14:33 Bronchial Washings Respiratory Culture - Final Complete 09/06/24 13:00 Vaginal Vaginal Culture - Final Enterococcus faecalis Methicillin Resistant S.aureus Complete 09/04/24 20:40 Nose MRSA Screen - Final Complete Problem List/Assessment/Plan Problem List/Assessment/Plan Acute kidney injury superimposed Chronic Kidney Disease secondary to hemodynamic etiology +/- tubular injury s/p HD intermittent Acute respiratory failure, patient intubated on ventilator CKD stage III Septic shock with multiorgan involvement history of PE Hyperkalemia Vancomycin toxicity hypernatremia recs renal function better lasix iv bid dc ivf Plan discussed with: Other My Orders My Orders Orders - NAILA IBARRA MD Procedure Category Date Status Time Furosemide Injection PHA 09/22/24 Logged (Lasix Injection) 18:45 Dietary Evaluation Review Comments: 1. Consider EN/TPN if NPO >7days 2. Continue plan of care Expected Outcomes/Goals: 1. Pt will meet >75% of estimated needs within 2-3 days NAILA IBARRA MD Sep 22, 2024 18:43
[2024-09-22] MEDS: MIDAZOLAM DRIP 50 mg/50mL 50 ML IV ONE (19:27)
[2024-09-22] MEDS: fentaNYL Drip 2500mCg/250mlNS 250 ML IV ONE (19:28)
[2024-09-22] MEDS: fentaNYL Drip 2500mCg/250mlNS 250 ML IV SCH (19:45)
--- NOTE | 2024-09-22 19:54 | DVHNC2 ---
Procedure - Procedure: Endotracheal Intubation INDICATION: Acute respiratory failure, accessory muscle usage Physician: Shai Luis MD Registered Nurse Float Pool: Dr Uribe, PGY1 CONSENT: Emergent procedure. Implied. The risks and benefits of the procedure and the sedation options and risk were discussed with the patient's healthcare proxy and patient. All questions were answered and informed consent was obtained. Time out time: 0 Patient medications and allergies reviewed. Patient identification and proposed procedure were verified prior to the procedure by the physician, and a nurse in the patient's room. The heart rate, respiratory rate, oxygen saturations, blood pressure, adequacy of pulmonary ventilation, and response to care were monitored throughout the procedure. The physical status of the patient was reassessed after the procedure. PROCEDURE SUMMARY: A time out was performed. My hands were washed immediately prior to the procedure. I wore a surgical cap, mask with protective eyewear, gown and gloves throughout the procedure. The patient was placed on a rn cardiac rehab including continuous pulse oximetry. The patient received 16 mg Etomidate and 50 mg rocuronium for induction. Cricoid pressure was maintained from time induction agent was given to time of cuff balloon inflation. Using a MAC 4 GlideoScope and a size 8.0 endotracheal tube with stylet, the patient was intubated on the 1 attempt. The stylet was removed and cuff balloon was inflated. Appropriate endotracheal tube position was confirmed by direct visualization of vocal cord passage, fogging of the tube, CO2 colorimetric indicator and symmetric breath sounds. The tube was secured at 23 cm at the lips. Post intubation chest x-ray is demonstrates the ETT between 2-6 cm above the teetee. CPT Code: 26761 SHAI LUIS MD Sep 22, 2024 19:54
--- NOTE | 2024-09-22 19:56 | DVHNC2 ---
Procedure - Bronchoscopy procedure note: Indications: Left and right lower lobe atelectasis, Possible mucous plugging. Medicines: See [employer] notes. Complications: None Time out: 1920 PM Procedure: Patient medications and allergies reviewed. The risks and benefits of the procedure and the sedation options and risk were discussed with the patient's healthcare proxy. All questions were answered and informed consent was obtained. Patient identification and proposed procedure were verified prior to the procedure by the physician, and a nurse, and the respiratory therapist in ICU room. The heart rate, respiratory rate, oxygen saturations, blood pressure, adequacy of pulmonary ventilation, and response to care were monitored throughout the procedure. The physical status of the patient was reassessed after the procedure. After obtaining informed consent, the bronchoscope was introduced through the endotracheal tube and advanced into the trachea bronchial tree of both lungs. The procedure was accomplished without difficulty. The patient tolerated the procedure well. Findings: The trachea is in normal caliber. The teetee is sharp. The tracheobronchial tree of the right lung was examined to at least the first subsegmental level. The bronchial mucosa and anatomy in the right lung are normal. There are no endobronchial lesions. There was copious whitish secretions from right main stem bronchus onward throughout R4-R10. The left upper lobe, lingula, and left lower lobe were examined to at least the first subsegmental level. Bronchial mucosa and anatomy in the left upper lobe and lingula are normal. There were no endobronchial lesions. There was copious whitish secretions from left main stem bronchus onward throughout L1-L10. Mucous plugging removed from L6-L10. There was no active bleeding at the completion of the procedure. Estimated blood loss: Less than 5 mL. Impression: Left lower lobe atelectasis due to mucous plugging Mucous plugging from L6-L10 and R4-R10 RML BAL performed Recommendation: Pulmonary toileting Procedure codes: 45933, bronchoscopy, rigid and flexible, including fluoroscopic guidance, one performed; with bronchial endobronchial removal of mucous plugging, single or multiple sites SHAI SINGH MD Sep 22, 2024 19:56
[2024-09-22] MEDS: PROPOFOL 100 ML IV ONE (19:58)
--- NOTE | 2024-09-22 20:36 | DVHPNRES ---
Progress Note Date Seen: Sep 22, 2024 Resident Creating Document: DAVID RIDDLE YENNI Has the PT tested + for MRSA If YES, has PT been informed?: Yes Medical Necessity Reason Pt with a Central, PICC or Fol: Yes The following are medically ne: Betancourt Catheter Reason for betancourt catheter: Strict I&O Subjective Review of Systems 63 yo morbidly obese with past history of pulmonary emboli, knee surgery (2015) ,multiple (6) abdominal surgery for hernia (2015) and bowel obstruction (2019) and multiple drug abuse brought to the hospital with shortness of breaths. Admitted and intubated on 09/02. Today, Patient seen examined at the bedside. Patient is sedated and on mechanical ventilation. CPAP trial performed and the patient extubated successfully. Patient reports: Feels worse Changes from previous H/P or p: Changes Objective vital signs Vital Sign Date Time Temp Pulse Resp B/P (MAP) Pulse Ox O2 Delivery O2 Flow Rate FiO2 09/22/24 20:09 110 31 146/86 (106) 93 75 09/22/24 18:15 Facial BiPAP Mask 09/22/24 18:00 12 09/22/24 16:00 99.1 99.1 Total Intake and Output 09/21/24 09/21/24 09/22/24 15:00 23:00 07:00 Intake Total 27.775 ml 285 ml 860 ml Output Total 1475 ml 750 ml Balance 27.775 ml -1190 ml 110 ml medications Current Medications Medications Dose Ordered Sig/Acacia Route Start Time Stop Time Status Last Admin Dose Admin Acetaminophen 650 mg Q4HP PRN GT 09/03/24 10:00 09/03/24 10:21 650 MG Pantoprazole Sodium 40 mg DAILY IV 09/04/24 10:00 09/22/24 10:12 40 MG Sodium Chloride 10 ml QSHIFT@,22 IV 09/13/24 22:00 09/22/24 10:12 10 ML Enoxaparin Sodium 100 mg Q12HR SC 09/19/24 22:00 09/22/24 10:13 100 MG Albuterol 2.5 mg Q6HPRN PRN NEB 09/21/24 19:00 Ipratropium [place] 0.5 mg Q6HPRN PRN NEB 09/21/24 19:00 Vancomycin HCl 0 ml @ 0 mls/hr UD IV 09/22/24 10:45 Levofloxacin 50 ml @ 50 mls/hr DAILY@1200,1300 IV 09/22/24 12:00 09/22/24 12:00 50 MLS/HR Vancomycin HCl 300 ml @ 200 mls/hr Q12H IV 09/23/24 00:00 Dexmedetomidine HCl 400 mcg/ Dextrose 100 ml @ 5.085 mls/ hr [id number] IV 09/22/24 18:15 Furosemide 40 mg BIDD IV 09/22/24 18:45 Propofol 100 ml @ 3.051 mls/ hr Q24H IV 09/22/24 19:45 UNV Midazolam HCl 50 ml @ 1 mls/hr Q24H IV 09/22/24 19:45 UNV Fentanyl Citrate 250 ml @ 2.5 mls/hr Q24H IV 09/22/24 19:45 UNV Examination General: RASS -5 afebrile, mucosae are moist Cardiovascular: Normal S1 and S2. No murmurs, gallops or rubs Respiratory: Mechanically assisted ventilation, equal bilateral airway entree. Clear lung sounds on auscultation Abdomen: Soft, nontender, no organomegaly, normal bowel sounds MSK/skin: Mobilization of limbs cannot be evaluated. Skin is dry and warm. T race bilateral pedal edema Neurological: Orientation cannot be assessed. No apparent motor no sensitive deficits. Pupils are isocoric and reactive laboratory and microbiology Laboratory Tests 09/22/24 02:47 Test 09/22/24 02:47 Range/Units Serum Glucose 89 74-106 mg/dL Microbiology Date/Time Source Procedure Growth Status 09/11/24 14:35 Blood Blood Culture - Final Staphylococcus epidermidis Complete 09/11/24 00:00 Voided Urine Urine Culture - Final Complete 09/08/24 14:33 Bronchial Washings Gram Stain - Final Complete 09/08/24 14:33 Bronchial Washings Respiratory Culture - Final Complete 09/06/24 13:00 Vaginal Vaginal Culture - Final Enterococcus faecalis Methicillin Resistant S.aureus Complete 09/04/24 20:40 Nose MRSA Screen - Final Complete Labs and/or images reviewed: Labs reviewed by me, Image(s) reviewed by me Problem List/Assessment/Plan Problem List/Assessment/Plan NEURO: Acute metabolic encephalopathy likely due to septic shock Patient was sedated and on mechanical ventilation, RASS score -5 CARDIOVASCULAR: NSTEMI type 2 likely due to septic shock Has history of pulmonary emboli in 2016 Cardiology on the board, recommended conservative management Echocardiogram shows mild LVH with mild LV diastolic dysfunction with ejection fraction of 65 80 mg of Lasix given yesterday due to pulmonary congestion PULMONARY: Acute Hypoxic respiratory failure, likely due to pneumonia Septic shock likely due to pneumonia Pneumonia due to MRSA Bronchoscopy performed on 09/07 shows lots of secretion on the left main bronchus, bronchial lavage results shows MRSA Bronchoscopy was repeated on 09/08, shows less mucus secretion in compared to previous bronchoscopy Blood culture from 09/02/2024 shows staph hominis sensitive to vancomycin Sputum culture from 09/02/2024 shows MRSA, Streptococcus pneumoniae vancomycin Influenza and COVID-19 screening negative Blood culture from 09/11 shows Staphylococcus epidermidis, sensitive to vancomycin Cefepime was given for 5 days from to 09/06, meropenem given for 3 days from 09/03 to 09/05, vancomycin given 14 days from 09/03 to, ceftriaxone 2 g daily was given for 6 days from 09/13 to 09/19, linezolid given for 7 days from 09/11 to 09/17 Continue N-acetylcysteine Chest x-ray shows bilateral infiltration, likely due to congestion, improved in comparison to yesterday ABGs shows mild respiratory alkalosis with pH 7.471 Breathing treatment q.6 hours as needed Patient was respiratory status worsened during the morning, on auscultation there was course breath sounds bilaterally, 80 mg of Lasix given, patient was put on BiPAP 26/04, with the patient condition worsen and the patient was sedated has been put on mechanical ventilation in the setting of VT 450, RR 18, FiO2 85% and peep 5 Bronchoscopy performed due to asymmetric course breath sounds, found copious mucous secretion on the left mid and lower lobe, and right lower lobe Started back vancomycin and levofloxacin on 09/22 Repeat sputum culture GI: Patient has history of multiple surgery of hernia(2015) and bowel obstruction(2019) Abdominal ventral hernias, abdominal CT scan shows multiple ventral wall hernias containing fat and bowel with mild dilatation of proximal jejunum loops with jejunal loops course into the abdominal hernia Possible bowel obstruction, surgery consulted, recommended conservative management, suggested that small bowel series could not perform at the moment due to respiratory status of the patient Transaminitis, likely ischemic secondary to septic shock Patient had 1 bowel movement last night Bowel regimen: Docusate GI ppx: Protonix RENAL: FEDE , likely hemodynamically mediated, improved Nephrology on the board, last HD session on 09/10 Hypernatremia Discontinue D5W Possible rhabdomyolysis, likely due to immobilization Creatinine kinase is raised at 8215, normalized ENDOCRINE: Hypertriglyceridemia, TG 623 09/04, 320 at 09/15 Likely due to propofol, discontinued propofol Continue Atorvastatin 40 mg ID: Sputum cultures from 09/02/2024 shows MRSA, Streptococcus pneumoniae Blood culture from 09/02/2024 shows Staph hominis Results from bronchial washing, from 09/07/2024 shows no growth after 24 hours ID on the board, suggested that the culture results are probably due to contamination and recommended to repeat the culture Blood culture from 09/11 shows Staphylococcus epidermidis, likely due to continue Repeat urine analysis Possible PID Patient had purulent vaginal discharge Vaginal bacterial culture, shows coagulase-negative Staphylococcus with few growth of possible Enterococcus species Metabolic: Hyperkalemia, improved Hyponatremia, improved Hypokalemia, supplemented Hypomagnesemia, supplemented Hypernatremia, monitoring Multidrug abuser: Per patient's daughter, she is a current user of amphetamine, marijuana and smoking cigarettes Hepatitis B and C serology negative HIV is negative Heme: DVT Doppler ultrasound of lower limb at 08/15 shows, nonocclusive DVT at left popliteal vein Lovenox 100 mg b.i.d. LINES/DRAINS/ACCESS: ETT, intubated on 09/02/2024 IV access Left upper arm PICC line, placed on 09/13 Drips: DVT ppx: Therapeutic dose of Lovenox DIET: NPO and stopped oral medicine CODE STATUS: Full code Patient's status was updated with the patient's daughter on the bedside. Critical time spent more than 93 minutes, including patient care, chart review and updating the family, excluding any procedures. Case discussed with Dr. Pinon Plan discussed with: Patient, Daughter, Other (RN) My Orders My Orders Orders - DAVID RIDDLE Procedure Category Date Status Time Oxygen By High-Flow RT 09/22/24 Transmitted 09:07 Abg W/ Co-Ox RT 09/22/24 Logged 10:17 Urinalysis LAB 09/22/24 Logged 17:06 D5w 5% (Dextrose 5%) PHA 09/22/24 In Process W/Dexmedetomidine 18:15 Propofol (Diprivan) PHA 09/22/24 Logged 19:45 Midazolam Drip 50 PHA 09/22/24 Logged Mg/50ml (Versed Drip 5 19:45 Fentanyl Drip PHA 09/22/24 Logged 2500mcg/250mlns 19:45 Rass Sedation Scale SIMRAN 09/22/24 In Process 19:36 Chest Portable XY 09/22/24 Taken 20:08 Dietary Evaluation Review Comments: 1. Consider EN/TPN if NPO >7days 2. Continue plan of care Expected Outcomes/Goals: 1. Pt will meet >75% of estimated needs within 2-3 days Date of Service: Sep 22, 2024 Billing Provider: DANE PINON MD Common Visit Codes: 54627-COOFNABZ CARE 30-74 MIN, 81644-FOEGHNDK CARE-EACH +30MIN DAVID RIDDLE RESDIENT Sep 22, 2024 20:36 DANE PINON MD Sep 23, 2024 11:06
[2024-09-22 20:39] LABS: Base Excess 2.2 mmol/L (-2.0-3.0)
--- NOTE | 2024-09-22 20:39 | DVH ---
CHEST RADIOGRAPH Indication: RESPIRATORY FAILURE/INTUBATION Technique: Single frontal view of the chest was obtained Comparison: XY CHEST XRAY 1 VIEW on DOS: 09/22/24, XY CHEST XRAY 1 VIEW on DOS: 09/21/24, XY CHEST PO RTABLE on DOS: 09/20/24 Findings/ IMPRESSION: Endotracheal tube projected 4.8 cm superior to the teetee. Enteric tube projects below the GE junctio n without visualization of side port or catheter tip. Right basilar opacification which may represent atelectasis with developing airspace disease not excluded. No pneumothorax.
[2024-09-22] MEDS: ROCURONIUM 10MG/ML 10ML VIAL IV ONE (21:37)
[2024-09-22] MEDS: ETOMIDATE (2MG/ML) 20ML VIAL IV ONE (21:38)
[2024-09-22] MEDS: NOREPINEPHRINE BITARTRATE 32 MG in SODIUM CHL 0.9% 218 ML IV SCH (21:50)
[2024-09-22] MEDS: MIDAZOLAM DRIP 50 mg/50mL 50 ML IV SCH (21:55)
[2024-09-22] MEDS: PROPOFOL 100 ML IV SCH (21:56)
--- NOTE | 2024-09-22 22:26 | DVHPN2 ---
Progress Note - Dictate Date Seen: Sep 22, 2024 Has the PT tested + for MRSA If YES, has PT been informed?: Yes Medical Necessity Reason Pt with a Central, PICC or Fol: Yes The following are medically ne: Betancourt Catheter Reason for betancourt catheter: Strict I&O Subjective Patient was seen and evaluated in follow up in the ICU. This morning, patient was desaturating into the 70's with an increased WOB and was placed on 15 L NRB. Patient continued to be SOB and was transitioned over to high flow oxygen. Patient also complaining of a sore throat. NA 152, K 3.2, CL 116, BUN 26, ALT 64. Chest x-ray shows low lung volumes with bibasilar atelectasis, mild pulmonary vascular congestion. vital signs Vital Sign Date Time Temp Pulse Resp B/P (MAP) Pulse Ox O2 Delivery O2 Flow Rate FiO2 09/22/24 11:50 88 20 91 70.0 90 09/22/24 10:57 140/90 09/22/24 08:51 Non-Rebreather 09/22/24 04:00 99.6 99.6 Total Intake and Output 09/21/24 09/21/24 09/22/24 15:00 23:00 07:00 Intake Total 27.775 ml 285 ml 785 ml Output Total 1475 ml 750 ml Balance 27.775 ml -1190 ml 35 ml medications Current Medications Medications Dose Ordered Sig/Acacia Route Start Time Stop Time Status Last Admin Dose Admin Acetaminophen 650 mg Q4HP PRN GT 09/03/24 10:00 09/03/24 10:21 650 MG Pantoprazole Sodium 40 mg DAILY IV 09/04/24 10:00 09/22/24 10:12 40 MG Sodium Chloride 10 ml QSHIFT@10,22 IV 09/13/24 22:00 09/22/24 10:12 10 ML Enoxaparin Sodium 100 mg Q12HR SC 09/19/24 22:00 09/22/24 10:13 100 MG Albuterol 2.5 mg Q6HPRN PRN NEB 09/21/24 19:00 Ipratropium [place] 0.5 mg Q6HPRN PRN NEB 09/21/24 19:00 Potassium Chloride 100 ml @ 50 mls/hr Q2H IV 09/22/24 09:00 09/22/24 16:59 09/22/24 10:58 50 MLS/HR Vancomycin HCl 0 ml @ 0 mls/hr UD IV 09/22/24 10:45 UNV Levofloxacin 50 ml @ 50 mls/hr DAILY@1200,1300 IV 09/22/24 12:00 09/22/24 12:00 50 MLS/HR objective GENERAL: GENERAL: Awake, alert, oriented. Morbidly obese LUNGS: Decreased breath sounds. CARDIOVASCULAR: Heart sounds are good. ABDOMEN: Soft. Morbid pannus limited physical palpation. SKIN: Multiple scars to abdomen. laboratory and microbiology Laboratory Tests 09/22/24 02:47 Test 09/22/24 02:47 Range/Units Serum Glucose 89 74-106 mg/dL Problem List Septic shock. Acute on chronic respiratory failure. NSTEMI type II secondary to above. Rule out structural heart disease. Prolonged QT interval. Morbid obesity, Class 3. Assessment/Plan Continued all current supportive medical care. DVT and GI prophylactics. Diuretics with Lasix. Nebulized breathing treatments. Additional plan as per the hospital course. Critical care time of 45 minutes provided to include time spent evaluation of patient at bedside, when appropriate patient/family education for diagnosis, treatment plan, review of pertinent medical information and discussion of care with specialty providers and PCP. Dietary Evaluation Review Comments: 1. Consider EN/TPN if NPO >7days 2. Continue plan of care Expected Outcomes/Goals: 1. Pt will meet >75% of estimated needs within 2-3 days Plan discussed with: Patient RELL STEWART MD Sep 22, 2024 14:39
[2024-09-22] MEDS: VANCOMYCIN 1.5GM/300ML 300 ML IV SCH (23:34)
[2024-09-22] MEDS: FUROSEMIDE 40 MG/4 ML VIAL IV SCH (23:35)
[2024-09-23] VITALS (104 sets, daily range): BP systolic 97–148; BP diastolic 51–82; PULSE 77–108; RESP 14–39; TEMP 97.6–100.5; O2SAT 88–100
[2024-09-23] MEDS: ALBUTEROL SULF 2.5 MG/0.5ML(0.5%) NEB SOLN NEB PRN (03:49)
[2024-09-23] MEDS: IPRATROPIUM BROM 0.5 MG/2.5ML INH SOL NEB PRN (03:50)
[2024-09-23 04:32] LABS: Anion Gap 14 (5-15); BUN/Creatinine Ratio 26.1 (10.0-20.0); Carbon Dioxide 29 mmol/L (20-31); Glucose 106 mg/dL (74-106); Potassium 4.4 mmol/L (3.5-5.1)
[2024-09-23 04:33] LABS: Albumin 4.3 g/dL (3.2-4.8); Aspartate Aminotransferase 39 U/L (13-40); Bilirubin, Total 0.5 mg/dL (0.2-1.0); Total Protein 7.8 g/dL (5.7-8.2)
[2024-09-23 04:48] LABS: Blood Urea Nitrogen 31 mg/dL (9-23); Chloride 108 mmol/L (98-107); Sodium 151 mmol/L (136-145)
[2024-09-23 04:49] LABS: Alanine Aminotransferase 68 U/L (7-40); Alkaline Phosphatase 161 U/L (46-116)
--- NOTE | 2024-09-23 05:17 | DVH ---
CHEST RADIOGRAPH Indication: Pneumonia Technique: Single frontal view of the chest was obtained COMPARISON: XY CHEST PORTABLE on DOS: 09/22/24, XY CHEST XRAY 1 VIEW on DOS: 09/22/24, XY CHEST XRAY 1 VIEW on DOS: 09/21/24, XY CHEST PORTABLE on DOS: 09/20/24 FINDINGS: Lines and Tubes: Endotracheal tube, enteric catheter and left PICC in satisfactory position. Lungs: Multifocal airspace disease. Pleura: No effusion. No pneumothorax. Cardiomediastinal contours: Unremarkable Bones: Unremarkable IMPRESSION: Lines and tubes in satisfactory position. No significant interval change.
[2024-09-23 07:44] LABS: Basophils # (auto) 0.3 10 ^3/uL (0-0.2); Basophils % (auto) 1.1 % (0.0-2.0); Eosinophils # (auto) 0.6 10 ^3/uL (0-0.8); Eosinophils % (auto) 2.5 % (0.0-7.0); Hematocrit 42.6 % (36.0-46.0); Hemoglobin 13.6 g/dL (12.2-16.2); Lymphocytes # (auto) 1.8 10 ^3/uL (0.4-5.4); Lymphocytes % (auto) 7.8 % (10.0-50.0); Mean Corpuscular Hemoglobin 29.2 pg (28.0-32.0); Mean Corpuscular Hgb Conc. 31.8 g/dL (32.0-36.0); Mean Corpuscular Volume 91.6 fL (80.0-100.0); Monocytes # (auto) 1.2 10 ^3/uL (0-1.3); Monocytes % (auto) 5.1 % (0.0-12.0); Neutrophils # (auto) 19.2 10 ^3/uL (1.6-8.6); Neutrophils % (auto) 83.5 % (37.0-80.0); Nucleated Red Blood Cells % 0.1 %; Red Blood Cells 4.65 10^6/uL (4.0-5.20); Red Cell Distribution Width 14.1 % (11.8-14.3)
[2024-09-23 08:18] LABS: Platelet Count (auto) 383 10^3/uL (140-450)
[2024-09-23 09:31] LABS: Urine Bacteria None Seen /hpf (None Seen)
[2024-09-23 09:53] LABS: Urine Blood 1+ /uL (Negative); Urine Budding Yeast MODERATE /hpf (None Seen); Urine Clarity Turbid (Clear); Urine Color Light-Yellow (Yellow); Urine Hyaline Cast MANY /lpf (0 - 2); Urine Mucus FEW (None Seen); Urine Protein, UAD Negative (Negative); Urine Specific Gravity 1.011 (1.001-1.035); Urine Squamous Epithelial Cell FEW /hpf (<5); Urine Urobilinogen Normal (Negative); Urine WBC 14 /hpf (0 - 5)
[2024-09-23] MEDS ORDERED: levoFLOXacin 500MG 100 ML IV SCH (10:00)
[2024-09-23 10:07] LABS: Base Excess -3.1 mmol/L (-2.0-3.0)
[2024-09-23 10:50] LABS: Creatinine, Urine 24.25 mg/dL (30.0-125.0)
[2024-09-23] MEDS: SOD CHL 0.45% 1,000 ML IV SCH (13:08)
--- NOTE | 2024-09-23 13:59 | DVHPNRES ---
Progress Note Date Seen: Sep 23, 2024 Resident Creating Document: DAVID RIDDLE YENNI Has the PT tested + for MRSA If YES, has PT been informed?: Yes Medical Necessity Reason Pt with a Central, PICC or Fol: Yes The following are medically ne: Betancourt Catheter Reason for betancourt catheter: Strict I&O Subjective Review of Systems 63 yo morbidly obese with past history of pulmonary emboli, knee surgery (2015) ,multiple (6) abdominal surgery for hernia (2015) and bowel obstruction (2019) and multiple drug abuse brought to the hospital with shortness of breaths. Admitted and intubated on 09/02. Today, Patient seen examined at the bedside. Patient is sedated and on mechanical ventilation. Patient reports: No new complaints, Feels better Changes from previous H/P or p: No Changes Objective vital signs Vital Sign Date Time Temp Pulse Resp B/P (MAP) Pulse Ox O2 Delivery O2 Flow Rate FiO2 09/23/24 13:30 87 18 108/56 (73) 95 09/23/24 12:11 45 09/23/24 06:00 Mechanical Ventilator+ 09/23/24 00:00 100.5 100.5 09/22/24 18:00 12 Total Intake and Output 09/22/24 09/22/24 09/23/24 15:00 23:00 07:00 Intake Total 375 ml 109.857 ml 311.448 ml Output Total 3475 ml 675 ml Balance 375 ml -3365.143 ml -363.552 ml medications Current Medications Medications Dose Ordered Sig/Acacia Route Start Time Stop Time Status Last Admin Dose Admin Acetaminophen 650 mg Q4HP PRN GT 09/03/24 10:00 09/03/24 10:21 650 MG Pantoprazole Sodium 40 mg DAILY IV 09/04/24 10:00 09/23/24 10:28 40 MG Sodium Chloride 10 ml QSHIFT@, IV 09/13/24 22:00 09/23/24 10:29 10 ML Enoxaparin Sodium 100 mg Q12HR SC 09/19/24 22:00 09/23/24 10:28 100 MG Albuterol 2.5 mg Q6HPRN PRN NEB 09/21/24 19:00 09/23/24 03:49 2.5 MG Ipratropium [place] 0.5 mg Q6HPRN PRN NEB 09/21/24 19:00 09/23/24 03:50 0.5 MG Vancomycin HCl 0 ml @ 0 mls/hr UD IV 09/22/24 10:45 Levofloxacin 50 ml @ 50 mls/hr DAILY@1200,1300 IV 09/22/24 12:00 09/23/24 13:09 50 MLS/HR Vancomycin HCl 300 ml @ 200 mls/hr Q12H IV 09/23/24 00:00 09/22/24 23:34 200 MLS/HR Midazolam HCl 50 ml @ 1 mls/hr Q24H IV 09/22/24 19:45 09/23/24 13:04 15 MLS/HR Fentanyl Citrate 250 ml @ 2.5 mls/hr Q24H IV 09/22/24 19:45 09/23/24 11:40 35 MLS/HR Norepinephrine Bitartrate 32 mg/ Sodium Chloride 250 ml @ 0.938 mls/ hr Q24H IV 09/22/24 21:15 09/22/24 21:50 0.938 MLS/HR Dexmedetomidine HCl 400 mcg/ Dextrose 100 ml @ 4.915 mls/ hr [id number] IV 09/23/24 09:30 Sodium Chloride 1,000 ml @ 75 mls/hr [id number] IV 09/23/24 11:15 09/23/24 13:08 75 MLS/HR Enteral Nutritional Formula 1,000 ml 30ML/HR GT 09/23/24 12:30 Examination General: RASS -5 afebrile, mucosae are moist Cardiovascular: Normal S1 and S2. No murmurs, gallops or rubs Respiratory: Mechanically assisted ventilation, equal bilateral airway entree. Clear lung sounds on auscultation Abdomen: Soft, nontender, no organomegaly, normal bowel sounds MSK/skin: Mobilization of limbs cannot be evaluated. Skin is dry and warm. T race bilateral pedal edema Neurological: Orientation cannot be assessed. No apparent motor no sensitive deficits. Pupils are isocoric and reactive laboratory and microbiology Laboratory Tests 09/23/24 06:16 09/23/24 03:13 Test 09/23/24 03:13 Range/Units Serum Glucose 106 74-106 mg/dL Microbiology Date/Time Source Procedure Growth Status 09/22/24 19:54 Trachea Gram Stain - Final Resulted 09/22/24 19:54 Trachea Respiratory Culture - Preliminary Resulted 09/22/24 10:59 Sputum Gram Stain - Final Resulted 09/22/24 10:59 Sputum Respiratory Culture - Preliminary Resulted 09/11/24 14:35 Blood Blood Culture - Final Staphylococcus epidermidis Complete 09/11/24 00:00 Voided Urine Urine Culture - Final Complete 09/06/24 13:00 Vaginal Vaginal Culture - Final Enterococcus faecalis Methicillin Resistant S.aureus Complete Labs and/or images reviewed: Labs reviewed by me, Image(s) reviewed by me Problem List/Assessment/Plan Problem List/Assessment/Plan NEURO: Acute metabolic encephalopathy likely due to septic shock Patient was sedated and on mechanical ventilation, RASS score -5 CARDIOVASCULAR: NSTEMI type 2 likely due to septic shock Has history of pulmonary emboli in 2016 Cardiology on the board, recommended conservative management Echocardiogram shows mild LVH with mild LV diastolic dysfunction with ejection fraction of 65 80 mg of Lasix given yesterday due to pulmonary congestion PULMONARY: Acute Hypoxic respiratory failure, likely due to pneumonia Septic shock likely due to pneumonia Pneumonia due to MRSA Bronchoscopy performed on 09/07 shows lots of secretion on the left main bronchus, bronchial lavage results shows MRSA Bronchoscopy was repeated on 09/08, shows less mucus secretion in compared to previous bronchoscopy Blood culture from 09/02/2024 shows staph hominis sensitive to vancomycin Sputum culture from 09/02/2024 shows MRSA, Streptococcus pneumoniae vancomycin Influenza and COVID-19 screening negative Blood culture from 09/11 shows Staphylococcus epidermidis, sensitive to vancomycin Cefepime was given for 5 days from 09/02t to 09/06, meropenem given for 3 days from 09/03 to 09/05, vancomycin given 14 days from 09/03 to, ceftriaxone 2 g daily was given for 6 days from 09/13 to 09/19, linezolid given for 7 days from 09/11 to 09/17 Continue N-acetylcysteine Chest x-ray shows bilateral infiltration, likely due to congestion, improved in comparison to yesterday ABGs shows mild respiratory alkalosis with pH 7.471 Breathing treatment q.6 hours as needed Patient was respiratory status worsened during the morning, on auscultation there was course breath sounds bilaterally, 80 mg of Lasix given, patient was put on BiPAP 26/04, with the patient condition worsen and the patient was sedated has been put on mechanical ventilation in the setting of VT 450, RR 18, FiO2 85% and peep 5 Bronchoscopy performed due to asymmetric course breath sounds, found copious mucous secretion on the left mid and lower lobe, and right lower lobe Started back vancomycin and levofloxacin on 09/22 Repeat sputum culture on 09/22 shows Staph Aureus GI: Patient has history of multiple surgery of hernia(2015) and bowel obstruction(2019) Abdominal ventral hernias, abdominal CT scan shows multiple ventral wall hernias containing fat and bowel with mild dilatation of proximal jejunum loops with jejunal loops course into the abdominal hernia Possible bowel obstruction, surgery consulted, recommended conservative management, suggested that small bowel series could not perform at the moment due to respiratory status of the patient Transaminitis, likely ischemic secondary to septic shock Patient had 1 bowel movement last night Bowel regimen: Docusate GI ppx: Protonix RENAL: FEDE , likely hemodynamically mediated, improved Nephrology on the board, last HD session on 09/10 Hypernatremia D5W 75ml/hr Possible rhabdomyolysis, likely due to immobilization Creatinine kinase is raised at 8215, normalized ENDOCRINE: Hypertriglyceridemia, TG 623 09/04, 320 at 09/15 Likely due to propofol, discontinued propofol Continue Atorvastatin 40 mg ID: Sputum cultures from 09/02/2024 shows MRSA, Streptococcus pneumoniae Blood culture from 09/02/2024 shows Staph hominis Results from bronchial washing, from 09/07/2024 shows no growth after 24 hours ID on the board, suggested that the culture results are probably due to contamination and recommended to repeat the culture Blood culture from 09/11 shows Staphylococcus epidermidis, likely due to continue Repeat UA from 08/24 shows UTI picture Patient has spikes of mild fever, repeat Blood culture on 09/23 Possible PID Patient had purulent vaginal discharge Vaginal bacterial culture, shows coagulase-negative Staphylococcus with few growth of possible Enterococcus species Metabolic: Hyperkalemia, improved Hyponatremia, improved Hypokalemia, supplemented Hypomagnesemia, supplemented Hypernatremia, monitoring Multidrug abuser: Per patient's daughter, she is a current user of amphetamine, marijuana and smoking cigarettes Hepatitis B and C serology negative HIV is negative Heme: DVT Doppler ultrasound of lower limb at 08/15 shows, nonocclusive DVT at left popliteal vein Lovenox 100 mg b.i.d. LINES/DRAINS/ACCESS: ETT, intubated on 09/02/2024 IV access Left upper arm PICC line, placed on 09/13 Drips: Levophed 12 Fentanyl 100 Versed 5 DVT ppx: Therapeutic dose of Lovenox DIET: Jevity 30ml/hr CODE STATUS: Full code Patient's status was updated with the patient's daughter on the bedside. Critical time spent more than 93 minutes, including patient care, chart review and updating the family, excluding any procedures. Case discussed with Dr. Pinon Plan discussed with: Other (RN) My Orders My Orders Orders - DAVID RIDDLE RESDIRAYMOND Procedure Category Date Status Time Midazolam Drip 50 PHA 09/22/24 In Process Mg/50ml (Versed Drip 5 19:45 Fentanyl Drip PHA 09/22/24 In Process 2500mcg/250mlns 19:45 Rass Sedation Scale SIMRAN 09/22/24 In Process 19:36 Chest Portable XY 09/22/24 Resulted 20:08 Chest Xray 1 View XY 09/23/24 Resulted 04:00 Abg W/ Co-Ox RT 09/23/24 Logged 04:00 D5w 5% (Dextrose 5%) PHA 09/23/24 In Process W/Dexmedetomidine 09:30 Nutritional PHA 09/23/24 In Process Supplements (Jevity 12:30 Dietary Evaluation Review Comments: 1. Consider EN/TPN if NPO >7days 2. Continue plan of care Expected Outcomes/Goals: 1. Pt will meet >75% of estimated needs within 2-3 days Date of Service: Sep 23, 2024 Billing Provider: DANE PINON MD Common Visit Codes: 71177-VRXIBVMC CARE 30-74 MIN, 62327-[id number] CARE-EACH +30MIN DAVID RIDDLE RESDIENT Sep 23, 2024 13:59 DANE PINON MD Sep 26, 2024 11:57
--- NOTE | 2024-09-23 15:56 | DVHPN2 ---
Progress Note Date Seen: Sep 23, 2024 Has the PT tested + for MRSA If YES, has PT been informed?: Yes Medical Necessity Reason Pt with a Central, PICC or Fol: Yes The following are medically ne: Betancourt Catheter Reason for betancourt catheter: Strict I&O Subjective Patient reports: Other (Events noted) Review of Systems: Deferred Objective vital signs Vital Sign Date Time Temp Pulse Resp B/P (MAP) Pulse Ox O2 Delivery O2 Flow Rate FiO2 09/23/24 15:15 86 18 102/57 (72) 95 09/23/24 14:39 45 09/23/24 14:00 97.8 97.8 09/23/24 14:00 Mechanical Ventilator+ 09/22/24 18:00 12 Total Intake and Output 09/22/24 09/22/24 09/23/24 15:00 23:00 07:00 Intake Total 375 ml 109.857 ml 311.448 ml Output Total 3475 ml 675 ml Balance 375 ml -3365.143 ml -363.552 ml medications Current Medications Medications Dose Ordered Sig/Acacia Route Start Time Stop Time Status Last Admin Dose Admin Acetaminophen 650 mg Q4HP PRN GT 09/03/24 10:00 09/03/24 10:21 650 MG Pantoprazole Sodium 40 mg DAILY IV 09/04/24 10:00 09/23/24 10:28 40 MG Sodium Chloride 10 ml QSHIFT@ IV 09/13/24 22:00 09/23/24 10:29 10 ML Enoxaparin Sodium 100 mg Q12HR SC 09/19/24 22:00 09/23/24 10:28 100 MG Albuterol 2.5 mg Q6HPRN PRN NEB 09/21/24 19:00 09/23/24 03:49 2.5 MG Ipratropium [place] 0.5 mg Q6HPRN PRN NEB 09/21/24 19:00 09/23/24 03:50 0.5 MG Vancomycin HCl 0 ml @ 0 mls/hr UD IV 09/22/24 10:45 Levofloxacin 50 ml @ 50 mls/hr DAILY@1200,1300 IV 09/22/24 12:00 09/23/24 14:18 50 MLS/HR Vancomycin HCl 300 ml @ 200 mls/hr Q12H IV 09/23/24 00:00 09/23/24 15:21 200 MLS/HR Midazolam HCl 50 ml @ 1 mls/hr Q24H IV 09/22/24 19:45 09/23/24 13:04 15 MLS/HR Fentanyl Citrate 250 ml @ 2.5 mls/hr Q24H IV 09/22/24 19:45 09/23/24 11:40 35 MLS/HR Norepinephrine Bitartrate 32 mg/ Sodium Chloride 250 ml @ 0.938 mls/ hr Q24H IV 09/22/24 21:15 09/22/24 21:50 0.938 MLS/HR Dexmedetomidine HCl 400 mcg/ Dextrose 100 ml @ 4.915 mls/ hr [id number] IV 09/23/24 09:30 Sodium Chloride 1,000 ml @ 75 mls/hr [id number] IV 09/23/24 11:15 09/23/24 13:08 75 MLS/HR Enteral Nutritional Formula 1,000 ml 30ML/HR GT 09/23/24 12:30 Examination: GENERAL:Abnormal, LUNGS:Abnormal, MSK:Abnormal, SKIN:Abnormal, NEURO:Abnormal laboratory and microbiology Laboratory Tests 09/23/24 06:16 09/23/24 03:13 Test 09/23/24 03:13 Range/Units Serum Glucose 106 74-106 mg/dL Microbiology Date/Time Source Procedure Growth Status 09/22/24 19:54 Trachea Gram Stain - Final Resulted 09/22/24 19:54 Trachea Respiratory Culture - Preliminary Resulted 09/22/24 10:59 Sputum Gram Stain - Final Resulted 09/22/24 10:59 Sputum Respiratory Culture - Preliminary Resulted 09/11/24 14:35 Blood Blood Culture - Final Staphylococcus epidermidis Complete 09/11/24 00:00 Voided Urine Urine Culture - Final Complete 09/06/24 13:00 Vaginal Vaginal Culture - Final Enterococcus faecalis Methicillin Resistant S.aureus Complete Problem List/Assessment/Plan Problem List/Assessment/Plan Acute kidney injury superimposed Chronic Kidney Disease secondary to hemodynamic etiology +/- tubular injury s/p HD intermittent Acute respiratory failure, patient intubated on ventilator CKD stage III Septic shock with multiorgan involvement history of PE Hyperkalemia Vancomycin toxicity hypernatremia recs Events noted patient extubated and then reintubated yesterday--after re- intubation patient became hypotensive needing Levophed Bolus 1 L saline And then ordered half NS at 75 cc Renal function slightly worse today Plan discussed with: Other Dietary Evaluation Review Comments: 1. Consider EN/TPN if NPO >7days 2. Continue plan of care Expected Outcomes/Goals: 1. Pt will meet >75% of estimated needs within 2-3 days NAILA IBARRA MD Sep 23, 2024 15:56
--- NOTE | 2024-09-23 16:45 | DVHPN2 ---
Progress Note - Dictate Date Seen: Sep 23, 2024 Has the PT tested + for MRSA If YES, has PT been informed?: Yes Medical Necessity Reason Pt with a Central, PICC or Fol: Yes The following are medically ne: Betancourt Catheter Reason for betancourt catheter: Strict I&O Subjective She is sedated and intubated on mechanical ventilation. No new complaints reported at this time. 09/23 Chest x-ray showed: Lines and tubes in satisfactory position. No significant interval change. vital signs Vital Sign Date Time Temp Pulse Resp B/P (MAP) Pulse Ox O2 Delivery O2 Flow Rate FiO2 09/23/24 16:28 130/57 09/23/24 15:15 86 18 95 09/23/24 14:39 45 09/23/24 14:00 97.8 97.8 09/23/24 14:00 Mechanical Ventilator+ 09/22/24 18:00 12 Total Intake and Output 09/22/24 09/22/24 09/23/24 15:00 23:00 07:00 Intake Total 375 ml 109.857 ml 311.448 ml Output Total 3475 ml 675 ml Balance 375 ml -3365.143 ml -363.552 ml medications Current Medications Medications Dose Ordered Sig/Acacia Route Start Time Stop Time Status Last Admin Dose Admin Acetaminophen 650 mg Q4HP PRN GT 09/03/24 10:00 09/03/24 10:21 650 MG Pantoprazole Sodium 40 mg DAILY IV 09/04/24 10:00 09/23/24 10:28 40 MG Sodium Chloride 10 ml QSHIFT@, IV 09/13/24 22:00 09/23/24 10:29 10 ML Enoxaparin Sodium 100 mg Q12HR SC 09/19/24 22:00 09/23/24 10:28 100 MG Albuterol 2.5 mg Q6HPRN PRN NEB 09/21/24 19:00 09/23/24 03:49 2.5 MG Ipratropium [place] 0.5 mg Q6HPRN PRN NEB 09/21/24 19:00 09/23/24 03:50 0.5 MG Vancomycin HCl 0 ml @ 0 mls/hr UD IV 09/22/24 10:45 Levofloxacin 50 ml @ 50 mls/hr DAILY@1200,1300 IV 09/22/24 12:00 09/23/24 14:18 50 MLS/HR Vancomycin HCl 300 ml @ 200 mls/hr Q12H IV 09/23/24 00:00 09/23/24 15:21 200 MLS/HR Midazolam HCl 50 ml @ 1 mls/hr Q24H IV 09/22/24 19:45 09/23/24 16:28 15 MLS/HR Fentanyl Citrate 250 ml @ 2.5 mls/hr Q24H IV 09/22/24 19:45 09/23/24 11:40 35 MLS/HR Norepinephrine Bitartrate 32 mg/ Sodium Chloride 250 ml @ 0.938 mls/ hr Q24H IV 09/22/24 21:15 09/22/24 21:50 0.938 MLS/HR Dexmedetomidine HCl 400 mcg/ Dextrose 100 ml @ 4.915 mls/ hr [id number] IV 09/23/24 09:30 Sodium Chloride 1,000 ml @ 75 mls/hr [id number] IV 09/23/24 11:15 09/23/24 13:08 75 MLS/HR Enteral Nutritional Formula 1,000 ml 30ML/HR GT 09/23/24 12:30 objective General: Intubated and sedated HEENT: Atraumatic,intubated Neck: No swelling Lungs: Equal air entry and clear to auscultation Cardiovascular: S1 S2 heard no murmur Abdomen: Soft nontender, no organomegaly, nondistended Neuro: sedated, unable to assess Psych: unable to assess laboratory and microbiology Laboratory Tests 09/23/24 06:16 09/23/24 03:13 Test 09/23/24 03:13 Range/Units Serum Glucose 106 74-106 mg/dL Assessment/Plan Patient is a 63-year-old female presented to the hospital with: Staphylococcus aureus pneumonia ( MRSA) Streptococcus Pneumoniae pneumonia Septic shock resolving bacteremia : coag neg staphylococccus, possible contamination Acute Respiratory Failure [requiring mechanical ventilation] severe hypoxia Metabolic acidosis FEDE Morbidly obese BMI = 40 PE history Recommendations: S/P reintubation on 09/22. 09/22 trach culture is growing preliminary staphylococcus aureus Follow sensitivity Continue IV vancomycin [Restarted on 09/22] Antibiotics review Cefepime 09/02- 09/06 Meropenem 09/03-09/05 Ceftriaxone 09/07-ongoing last given 09/18 Vancomycin 09/03- 09/11 Linezolid 09/11- ongoing - 09/17 last given Blood culture:co ag neg staph, i think its contaminated. Recent on 09/07 showed no growth Pulmonary on board for vent management full code prognosis guarded crit time 35 mins spent during the encounter. Thank you for consult and for giving an opportunity to take care of this patient. Dietary Evaluation Review Comments: 1. Consider EN/TPN if NPO >7days 2. Continue plan of care Expected Outcomes/Goals: 1. Pt will meet >75% of estimated needs within 2-3 days Plan discussed with: ANGELLA Peng MD Sep 23, 2024 16:45
--- NOTE | 2024-09-23 22:28 | DVHPN2 ---
Progress Note - Dictate Date Seen: Sep 23, 2024 Has the PT tested + for MRSA If YES, has PT been informed?: Yes Medical Necessity Reason Pt with a Central, PICC or Fol: Yes The following are medically ne: Betancourt Catheter Reason for betancourt catheter: Strict I&O Subjective Patient was seen and evaluated in follow up in the ICU. Overnight, patient's respiratory status worsened and continued to have an increased WOB and was reintubated for airway protection. Patient is s/p bedside bronchoscopy. WBC 23, NA 151, CL 108, BUN 31, EDGE STAINER MACHINE 1.19, ALT 68. vital signs Vital Sign Date Time Temp Pulse Resp B/P (MAP) Pulse Ox O2 Delivery O2 Flow Rate FiO2 09/23/24 11:00 91 25 117/58 (77) 91 45 09/23/24 06:00 Mechanical Ventilator+ 09/23/24 00:00 100.5 100.5 09/22/24 18:00 12 Total Intake and Output 09/22/24 09/22/24 09/23/24 15:00 23:00 07:00 Intake Total 375 ml 109.857 ml 311.448 ml Output Total 3475 ml 675 ml Balance 375 ml -3365.143 ml -363.552 ml medications Current Medications Medications Dose Ordered Sig/[place] Route Start Time Stop Time Status Last Admin Dose Admin Acetaminophen 650 mg Q4HP PRN GT 09/03/24 10:00 09/03/24 10:21 650 MG Pantoprazole Sodium 40 mg DAILY IV 09/04/24 10:00 09/23/24 10:28 40 MG Sodium Chloride 10 ml QSHIFT@ IV 09/13/24 22:00 09/23/24 10:29 10 ML Enoxaparin Sodium 100 mg Q12HR SC 09/19/24 22:00 09/23/24 10:28 100 MG Albuterol 2.5 mg Q6HPRN PRN NEB 09/21/24 19:00 09/23/24 03:49 2.5 MG Ipratropium [place] 0.5 mg Q6HPRN PRN NEB 09/21/24 19:00 09/23/24 03:50 0.5 MG Vancomycin HCl 0 ml @ 0 mls/hr UD IV 09/22/24 10:45 Levofloxacin 50 ml @ 50 mls/hr DAILY@1200,1300 IV 09/22/24 12:00 09/22/24 12:00 50 MLS/HR Vancomycin HCl 300 ml @ 200 mls/hr Q12H IV 09/23/24 00:00 09/22/24 23:34 200 MLS/HR Midazolam HCl 50 ml @ 1 mls/hr Q24H IV 09/22/24 19:45 09/23/24 08:56 5 MLS/HR Fentanyl Citrate 250 ml @ 2.5 mls/hr Q24H IV 09/22/24 19:45 09/22/24 19:45 2.5 MLS/HR Norepinephrine Bitartrate 32 mg/ Sodium Chloride 250 ml @ 0.938 mls/ hr Q24H IV 09/22/24 21:15 09/22/24 21:50 0.938 MLS/HR Dexmedetomidine HCl 400 mcg/ Dextrose 100 ml @ 4.915 mls/ hr [id number] IV 09/23/24 09:30 Sodium Chloride 1,000 ml @ 75 mls/hr [id number] IV 09/23/24 11:15 UNV objective GENERAL: Intubated on ventilator. Morbidly obese. LUNGS: Decreased breath sounds. CARDIOVASCULAR: Heart sounds are good. ABDOMEN: Soft. Morbid pannus limited physical palpation. SKIN: Multiple scars to abdomen. laboratory and microbiology Laboratory Tests 09/23/24 06:16 09/23/24 03:13 Test 09/23/24 03:13 Range/Units Serum Glucose 106 74-106 mg/dL Problem List Septic shock. Acute on chronic respiratory failure. NSTEMI type II secondary to above. Rule out structural heart disease. Prolonged QT interval. Morbid obesity, Class 3. Assessment/Plan Continued all current supportive medical care. DVT and GI prophylactics. Diuretics with Lasix. Nebulized breathing treatments. Vasopressors for hemodynamic support. Additional plan as per the hospital course. Critical care time of 45 minutes provided to include time spent evaluation of patient at bedside, when appropriate patient/family education for diagnosis, treatment plan, review of pertinent medical information and discussion of care with specialty providers and PCP. Mechanical ventilator parameters, treatment and adjustments have personally been reviewed by me and treatment plan by corn husk baler has also been reviewed. Dietary Evaluation Review Comments: 1. Consider EN/TPN if NPO >7days 2. Continue plan of care Expected Outcomes/Goals: 1. Pt will meet >75% of estimated needs within 2-3 days Plan discussed with: Other RELL STEWART MD Sep 23, 2024 11:20
[2024-09-24] VITALS (106 sets, daily range): BP systolic 101–138; BP diastolic 41–74; PULSE 70–87; RESP 18–22; TEMP 97.5–99.3; O2SAT 92–100
[2024-09-24] MEDS: Jevity 1.2 Cal/Fiber 1 Liter GT SCH (00:14)
[2024-09-24 04:08] LABS: Basophils # (auto) 0.2 10 ^3/uL (0-0.2); Basophils % (auto) 1.2 % (0.0-2.0); Eosinophils # (auto) 0.9 10 ^3/uL (0-0.8); Eosinophils % (auto) 5.7 % (0.0-7.0); Hematocrit 36.2 % (36.0-46.0); Hemoglobin 11.8 g/dL (12.2-16.2); Lymphocytes # (auto) 1.6 10 ^3/uL (0.4-5.4); Lymphocytes % (auto) 9.8 % (10.0-50.0); Mean Corpuscular Hemoglobin 29.9 pg (28.0-32.0); Mean Corpuscular Hgb Conc. 32.5 g/dL (32.0-36.0); Mean Corpuscular Volume 91.9 fL (80.0-100.0); Monocytes # (auto) 1.3 10 ^3/uL (0-1.3); Monocytes % (auto) 7.8 % (0.0-12.0); Neutrophils # (auto) 12.6 10 ^3/uL (1.6-8.6); Neutrophils % (auto) 75.5 % (37.0-80.0); Platelet Count (auto) 293 10^3/uL (140-450); Red Blood Cells 3.94 10^6/uL (4.0-5.20); Red Cell Distribution Width 14.1 % (11.8-14.3); White Blood Cell 16.7 10^3/uL (4.4-10.8)
[2024-09-24 04:24] LABS: Alanine Aminotransferase 39 U/L (7-40); Albumin 3.5 g/dL (3.2-4.8); Anion Gap 12 (5-15); BUN/Creatinine Ratio 31.8 (10.0-20.0); Bilirubin, Total 0.5 mg/dL (0.2-1.0); Carbon Dioxide 27 mmol/L (20-31); Potassium 3.5 mmol/L (3.5-5.1); Total Protein 6.3 g/dL (5.7-8.2)
[2024-09-24 04:26] LABS: Blood Urea Nitrogen 27 mg/dL (9-23); Chloride 113 mmol/L (98-107); Glucose 107 mg/dL (74-106); Sodium 152 mmol/L (136-145)
[2024-09-24 04:27] LABS: Alkaline Phosphatase 131 U/L (46-116); Aspartate Aminotransferase 12 U/L (13-40); Calcium 10.7 mg/dL (8.7-10.4)
--- NOTE | 2024-09-24 05:36 | DVH ---
CHEST RADIOGRAPH Indication: Pneumonia Technique: Single frontal view of the chest was obtained COMPARISON: XY CHEST XRAY 1 VIEW on DOS: 09/23/24, XY CHEST PORTABLE on DOS: 09/22/24, XY CHEST XRAY 1 VIEW on DOS: 09/22/24, XY CHEST XRAY 1 VIEW on DOS: 09/23/24 FINDINGS: Lines and Tubes: Endotracheal tube, enteric catheter and left PICC in satisfactory position. Lungs: Multifocal airspace disease. Pleura: No effusion. No pneumothorax. Cardiomediastinal contours: Unremarkable Bones: Unremarkable IMPRESSION: Lines and tubes in satisfactory position. No significant interval change.
[2024-09-24 07:13] LABS: Base Excess -5.3 mmol/L (-2.0-3.0)
[2024-09-24 11:26] LABS: Base Excess -3.4 mmol/L (-2.0-3.0)
--- NOTE | 2024-09-24 11:49 | DVHPN2 ---
Progress Note - Dictate Date Seen: Sep 24, 2024 Has the PT tested + for MRSA If YES, has PT been informed?: Yes Medical Necessity Reason Pt with a Central, PICC or Fol: Yes The following are medically ne: Betancourt Catheter Reason for betancourt catheter: Strict I&O Subjective She is sedated and intubated on mechanical ventilation. No new complaints reported at this time. 09/24 Chest x-ray showed: Lines and tubes in satisfactory position. No significant interval change. vital signs Vital Sign Date Time Temp Pulse Resp B/P (MAP) Pulse Ox O2 Delivery O2 Flow Rate FiO2 09/24/24 10:00 81 09/24/24 10:00 22 94 Mechanical Ventilator+ 40 40 09/24/24 10:00 125/47 (73) 09/24/24 08:00 99.3 99.3 09/22/24 18:00 12 Total Intake and Output 09/23/24 09/23/24 09/24/24 14:59 22:59 06:59 Intake Total 378.306 ml 1095.000 ml 798.000 ml Output Total 1100 ml 950 ml Balance 378.306 ml -5.000 ml -152.000 ml medications Current Medications Medications Dose Ordered Sig/Acacia Route Start Time Stop Time Status Last Admin Dose Admin Acetaminophen 650 mg Q4HP PRN GT 09/03/24 10:00 09/03/24 10:21 650 MG Pantoprazole Sodium 40 mg DAILY IV 09/04/24 10:00 09/24/24 08:40 40 MG Sodium Chloride 10 ml QSHIFT@ IV 09/13/24 22:00 09/24/24 08:40 10 ML Enoxaparin Sodium 100 mg Q12HR SC 09/19/24 22:00 09/24/24 08:40 100 MG Albuterol 2.5 mg Q6HPRN PRN NEB 09/21/24 19:00 09/23/24 18:57 2.5 MG Ipratropium [place] 0.5 mg Q6HPRN PRN NEB 09/21/24 19:00 09/23/24 18:57 0.5 MG Vancomycin HCl 0 ml @ 0 mls/hr UD IV 09/22/24 10:45 Levofloxacin 50 ml @ 50 mls/hr DAILY@1200,1300 IV 09/22/24 12:00 09/23/24 14:18 50 MLS/HR Vancomycin HCl 300 ml @ 200 mls/hr Q12H IV 09/23/24 00:00 09/24/24 11:17 200 MLS/HR Midazolam HCl 50 ml @ 1 mls/hr Q24H IV 09/22/24 19:45 09/24/24 08:27 15 MLS/HR Fentanyl Citrate 250 ml @ 2.5 mls/hr Q24H IV 09/22/24 19:45 09/24/24 07:21 35 MLS/HR Norepinephrine Bitartrate 32 mg/ Sodium Chloride 250 ml @ 0.938 mls/ hr Q24H IV 09/22/24 21:15 09/22/24 21:50 0.938 MLS/HR Dexmedetomidine HCl 400 mcg/ Dextrose 100 ml @ 4.915 mls/ hr [id number] IV 09/23/24 09:30 Sodium Chloride 1,000 ml @ 75 mls/hr [id number] IV 09/23/24 11:15 09/23/24 23:55 75 MLS/HR Enteral Nutritional Formula 1,000 ml 30ML/HR GT 09/23/24 12:30 09/24/24 00:14 1,000 ML objective General: Intubated and sedated HEENT: Atraumatic,intubated Neck: No swelling Lungs: Equal air entry and clear to auscultation Cardiovascular: S1 S2 heard no murmur Abdomen: Soft nontender, no organomegaly, nondistended Neuro: sedated, unable to assess Psych: unable to assess laboratory and microbiology Laboratory Tests 09/24/24 03:42 Test 09/24/24 03:42 Range/Units Serum Glucose 107 H 74-106 mg/dL Assessment/Plan Patient is a 63-year-old female presented to the hospital with: Staphylococcus aureus pneumonia ( MRSA) Streptococcus Pneumoniae pneumonia Septic shock resolving bacteremia : coag neg staphylococccus, possible contamination Acute Respiratory Failure [requiring mechanical ventilation] severe hypoxia Metabolic acidosis FEDE Morbidly obese BMI = 40 PE history Recommendations: S/P reintubation on 09/22. 09/22 trach culture is growing preliminary staphylococcus aureus Follow sensitivity Continue IV vancomycin [Restarted on 09/22] Antibiotics review Cefepime 09/02- 09/06 Meropenem 09/03-09/05 Ceftriaxone 09/07-ongoing last given 09/18 Vancomycin 09/03- 09/11 Linezolid 09/11- ongoing - 09/17 last given Blood culture:co ag neg staph, i think its contaminated. Recent on 09/07 showed no growth Pulmonary on board for vent management full code prognosis guarded crit time 35 mins spent during the encounter. Thank you for consult and for giving an opportunity to take care of this patient. Dietary Evaluation Review Comments: 1. Consider EN/TPN if NPO >7days 2. Continue plan of care Expected Outcomes/Goals: 1. Pt will meet >75% of estimated needs within 2-3 days Plan discussed with: ANGELLA Peng MD Sep 24, 2024 11:49
--- NOTE | 2024-09-24 13:12 | DVHPN2 ---
Progress Note - Dictate Date Seen: Sep 24, 2024 Has the PT tested + for MRSA If YES, has PT been informed?: Yes Medical Necessity Reason Pt with a Central, PICC or Fol: Yes The following are medically ne: Betancourt Catheter Reason for betancourt catheter: Strict I&O Subjective Patient is currently intubated vital signs Vital Sign Date Time Temp Pulse Resp B/P (MAP) Pulse Ox O2 Delivery O2 Flow Rate FiO2 09/24/24 12:15 75 22 115/46 (69) 98 09/24/24 12:00 Mechanical Ventilator+ 40 40 09/24/24 12:00 98.4 98.4 09/22/24 18:00 12 Total Intake and Output 09/23/24 09/23/24 09/24/24 15:00 23:00 07:00 Intake Total 520.000 ml 970.000 ml 798.000 ml Output Total 1100 ml 950 ml Balance 520.000 ml -130.000 ml -152.000 ml medications Current Medications Medications Dose Ordered Sig/[place] Route Start Time Stop Time Status Last Admin Dose Admin Acetaminophen 650 mg Q4HP PRN GT 09/03/24 10:00 09/03/24 10:21 650 MG Pantoprazole Sodium 40 mg DAILY IV 09/04/24 10:00 09/24/24 08:40 40 MG Sodium Chloride 10 ml QSHIFT@ IV 09/13/24 22:00 09/24/24 08:40 10 ML Enoxaparin Sodium 100 mg Q12HR SC 09/19/24 22:00 09/24/24 08:40 100 MG Albuterol 2.5 mg Q6HPRN PRN NEB 09/21/24 19:00 09/23/24 18:57 2.5 MG Ipratropium [place] 0.5 mg Q6HPRN PRN NEB 09/21/24 19:00 09/23/24 18:57 0.5 MG Vancomycin HCl 0 ml @ 0 mls/hr UD IV 09/22/24 10:45 Levofloxacin 50 ml @ 50 mls/hr DAILY@1200,1300 IV 09/22/24 12:00 09/24/24 13:08 50 MLS/HR Midazolam HCl 50 ml @ 1 mls/hr Q24H IV 09/22/24 19:45 09/24/24 12:06 12 MLS/HR Fentanyl Citrate 250 ml @ 2.5 mls/hr Q24H IV 09/22/24 19:45 09/24/24 07:21 35 MLS/HR Norepinephrine Bitartrate 32 mg/ Sodium Chloride 250 ml @ 0.938 mls/ hr Q24H IV 09/22/24 21:15 09/22/24 21:50 0.938 MLS/HR Dexmedetomidine HCl 400 mcg/ Dextrose 100 ml @ 4.915 mls/ hr [id number] IV 09/23/24 09:30 Sodium Chloride 1,000 ml @ 75 mls/hr [id number] IV 09/23/24 11:15 09/23/24 23:55 75 MLS/HR Enteral Nutritional Formula 1,000 ml 30ML/HR GT 09/23/24 12:30 09/24/24 00:14 1,000 ML objective elderly female intubated no ankle edema laboratory and microbiology Laboratory Tests 09/24/24 10:59 09/24/24 03:42 Test 09/24/24 03:42 Range/Units Serum Glucose 107 H 74-106 mg/dL Assessment/Plan Acute kidney injury to hemodynamic etiology +/- tubular injury oliguric requiring initiation of hemodialysis but has had full renal recovery and has resolved multiple resolving Tabby in past but admission cr less than 1 Acute respiratory failure, patient intubated on ventilator-> reintubated 24 hours ago Septic shock with multiorgan involvement history of PE Hypokakalemia Vancomycin toxicity Currently on IV fluid hydration Mean arterial pressure guided by pressors Avoid hypotension Hypotonic fluid Monitoring replace electrolytes Dietary Evaluation Review Comments: 1. Consider EN/TPN if NPO >7days 2. Continue plan of care Expected Outcomes/Goals: 1. Pt will meet >75% of estimated needs within 2-3 days Plan discussed with: Other Critical Care Time(min): 33 GUCCI ASHBY MD Sep 24, 2024 13:12
[2024-09-24] MEDS: D5W 5% 1,000 ML IV SCH (14:47)
--- NOTE | 2024-09-24 19:04 | DVHPNRES ---
Progress Note Date Seen: Sep 24, 2024 Resident Creating Document: DAVID RIDDLE YENNI Has the PT tested + for MRSA If YES, has PT been informed?: Yes Medical Necessity Reason Pt with a Central, PICC or Fol: Yes The following are medically ne: Betancourt Catheter Reason for betancourt catheter: Strict I&O Subjective Review of Systems 63 yo morbidly obese with past history of pulmonary emboli, knee surgery (2015) ,multiple (6) abdominal surgery for hernia (2015) and bowel obstruction (2019) and multiple drug abuse brought to the hospital with shortness of breaths. Admitted and intubated on 09/02. Today, Patient seen examined at the bedside. Patient is sedated and on mechanical ventilation. Patient reports: No new complaints Changes from previous H/P or p: No Changes Objective vital signs Vital Sign Date Time Temp Pulse Resp B/P (MAP) Pulse Ox O2 Delivery O2 Flow Rate FiO2 09/24/24 18:45 72 22 105/47 (66) 97 09/24/24 18:00 Mechanical Ventilator+ 35 35 09/24/24 16:00 97.5 97.5 09/22/24 18:00 12 Total Intake and Output 09/23/24 09/23/24 09/24/24 15:00 23:00 07:00 Intake Total 520.000 ml 970.000 ml 798.000 ml Output Total 1100 ml 950 ml Balance 520.000 ml -130.000 ml -152.000 ml medications Current Medications Medications Dose Ordered Sig/[place]acia Route Start Time Stop Time Status Last Admin Dose Admin Acetaminophen 650 mg Q4HP PRN GT 09/03/24 10:00 09/03/24 10:21 650 MG Pantoprazole Sodium 40 mg DAILY IV 09/04/24 10:00 09/24/24 08:40 40 MG Sodium Chloride 10 ml QSHIFT@10, IV 09/13/24 22:00 09/24/24 08:40 10 ML Enoxaparin Sodium 100 mg Q12HR SC 09/19/24 22:00 09/24/24 08:40 100 MG Albuterol 2.5 mg Q6HPRN PRN NEB 09/21/24 19:00 09/23/24 18:57 2.5 MG Ipratropium [place] 0.5 mg Q6HPRN PRN NEB 09/21/24 19:00 12/12/24 18:57 0.5 MG Vancomycin HCl 0 ml @ 0 mls/hr UD IV 09/22/24 10:45 Levofloxacin 50 ml @ 50 mls/hr DAILY@1200,1300 IV 09/22/24 12:00 09/24/24 13:08 50 MLS/HR Midazolam HCl 50 ml @ 1 mls/hr Q24H IV 09/22/24 19:45 09/24/24 16:31 10 MLS/HR Fentanyl Citrate 250 ml @ 2.5 mls/hr Q24H IV 09/22/24 19:45 09/24/24 13:19 35 MLS/HR Norepinephrine Bitartrate 32 mg/ Sodium Chloride 250 ml @ 0.938 mls/ hr Q24H IV 09/22/24 21:15 09/22/24 21:50 0.938 MLS/HR Dexmedetomidine HCl 400 mcg/ Dextrose 100 ml @ 4.915 mls/ hr [id number] IV 09/23/24 09:30 Enteral Nutritional Formula 1,000 ml 30ML/HR GT 09/23/24 12:30 09/24/24 00:14 1,000 ML Dextrose 1,000 ml @ 125 mls/hr Q8H IV 09/24/24 14:15 09/25/24 23:50 09/24/24 14:47 125 MLS/HR Examination General: RASS -5 afebrile, mucosae are moist Cardiovascular: Normal S1 and S2. No murmurs, gallops or rubs Respiratory: Mechanically assisted ventilation, equal bilateral airway entree. Clear lung sounds on auscultation Abdomen: Soft, nontender, no organomegaly, normal bowel sounds MSK/skin: Mobilization of limbs cannot be evaluated. Skin is dry and warm. T race bilateral pedal edema Neurological: Orientation cannot be assessed. No apparent motor no sensitive deficits. Pupils are isocoric and reactive laboratory and microbiology Laboratory Tests 09/24/24 10:59 09/24/24 03:42 Test 09/24/24 03:42 Range/Units Serum Glucose 107 H 74-106 mg/dL Microbiology Date/Time Source Procedure Growth Status 09/23/24 11:50 Blood Blood Culture - Preliminary NO GROWTH AFTER 24 HOURS OF INCUBATION. Resulted 09/22/24 19:54 Trachea Gram Stain - Final Resulted 09/22/24 19:54 Trachea Respiratory Culture - Preliminary Resulted 09/22/24 10:59 Sputum Gram Stain - Final Resulted 09/22/24 10:59 Sputum Respiratory Culture - Preliminary Resulted 09/11/24 00:00 Voided Urine Urine Culture - Final Complete 09/06/24 13:00 Vaginal Vaginal Culture - Final Enterococcus faecalis Methicillin Resistant S.aureus Complete Labs and/or images reviewed: Labs reviewed by me, Image(s) reviewed by me Problem List/Assessment/Plan Problem List/Assessment/Plan NEURO: Acute metabolic encephalopathy likely due to septic shock Patient was sedated and on mechanical ventilation, RASS score -5 CARDIOVASCULAR: NSTEMI type 2 likely due to septic shock Has history of pulmonary emboli in 2016 Cardiology on the board, recommended conservative management Echocardiogram shows mild LVH with mild LV diastolic dysfunction with ejection fraction of 65 80 mg of Lasix given yesterday due to pulmonary congestion PULMONARY: Acute Hypoxic respiratory failure, likely due to pneumonia Septic shock likely due to pneumonia Pneumonia due to MRSA Bronchoscopy performed on 09/07 shows lots of secretion on the left main bronchus, bronchial lavage results shows MRSA Bronchoscopy was repeated on 09/08, shows less mucus secretion in compared to previous bronchoscopy Blood culture from 09/02/2024 shows staph hominis sensitive to vancomycin Sputum culture from 09/02/2024 shows MRSA, Streptococcus pneumoniae vancomycin Influenza and COVID-19 screening negative Blood culture from 09/11 shows Staphylococcus epidermidis, sensitive to vancomycin Cefepime was given for 5 days from to 09/06, meropenem given for 3 days from 09/03 to 09/05, vancomycin given 14 days from 09/03 to, ceftriaxone 2 g daily was given for 6 days from 09/13 to 09/19, linezolid given for 7 days from 09/11 to 09/17 Continue N-acetylcysteine Chest x-ray shows bilateral infiltration, likely due to congestion, improved in comparison to yesterday ABGs shows respiratory acidosis, respiratory rate increased from 18 to 22 Breathing treatment q.6 hours as needed Patient was respiratory status worsened during the morning, on auscultation there was course breath sounds bilaterally, 80 mg of Lasix given, patient was put on BiPAP 26/04, with the patient condition worsen and the patient was sedated has been put on mechanical ventilation in the setting of VT 450, RR 22, FiO2 85% and peep 5 Bronchoscopy performed due to asymmetric course breath sounds, found copious mucous secretion on the left mid and lower lobe, and right lower lobe Started back vancomycin and levofloxacin on 09/22 Repeat sputum culture on 09/22 shows Staph Aureus GI: Patient has history of multiple surgery of hernia(2015) and bowel obstruction(2019) Abdominal ventral hernias, abdominal CT scan shows multiple ventral wall hernias containing fat and bowel with mild dilatation of proximal jejunum loops with jejunal loops course into the abdominal hernia Possible bowel obstruction, surgery consulted, recommended conservative management, suggested that small bowel series could not perform at the moment due to respiratory status of the patient Transaminitis, likely ischemic secondary to septic shock Patient had 1 bowel movement last night Bowel regimen: Docusate GI ppx: Protonix RENAL: FEDE , likely hemodynamically mediated, improved Nephrology on the board, last HD session on 09/10 Hypernatremia free water deficit calculated, 4 L D5W 125ml/hr Possible rhabdomyolysis, likely due to immobilization Creatinine kinase is raised at 8215, normalized ENDOCRINE: Hypertriglyceridemia, TG 623 09/04, 320 at 09/15 Likely due to propofol, discontinued propofol Continue Atorvastatin 40 mg ID: Sputum cultures from 09/02/2024 shows MRSA, Streptococcus pneumoniae Blood culture from 09/02/2024 shows Staph hominis Results from bronchial washing, from 09/07/2024 shows no growth after 24 hours ID on the board, suggested that the culture results are probably due to contamination and recommended to repeat the culture Blood culture from 09/11 shows Staphylococcus epidermidis, likely due to continue Repeat UA from 08/24 shows UTI picture Patient has spikes of mild fever, repeat Blood culture on 09/23 Possible PID Patient had purulent vaginal discharge Vaginal bacterial culture, shows coagulase-negative Staphylococcus with few growth of possible Enterococcus species Metabolic: Hyperkalemia, improved Hyponatremia, improved Hypokalemia, supplemented Hypomagnesemia, supplemented Hypernatremia, monitoring Multidrug abuser: Per patient's daughter, she is a current user of amphetamine, marijuana and smoking cigarettes Hepatitis B and C serology negative HIV is negative Heme: DVT Doppler ultrasound of lower limb at 08/15 shows, nonocclusive DVT at left popliteal vein Lovenox 100 mg b.i.d. LINES/DRAINS/ACCESS: ETT, intubated on 09/02/2024 IV access Left upper arm PICC line, placed on 09/13 Drips: Levophed 12 Fentanyl 350 Versed 10 DVT ppx: Therapeutic dose of Lovenox DIET: Jevity 30ml/hr CODE STATUS: Full code Patient's status was updated with the patient's daughter on the phone. Critical time spent more than 76 minutes, including patient care, chart review and updating the family, excluding any procedures. Case discussed with Dr. Beck Plan discussed with: Other (RN) My Orders My Orders Orders - DAVID RIDDLE RESDIRAYMOND Procedure Category Date Status Time Urine Bacterial MOISES 09/24/24 Logged Culture 06:47 Blood Culture MOISES 09/24/24 In Process 06:51 Ventilator Orders RT 09/24/24 Transmitted 08:59 D5w 5% (Dextrose 5%) PHA 09/24/24 In Process 14:15 Respiratory Misc. RT 09/24/24 Transmitted Order 15:50 Dietary Evaluation Review Comments: 1. Consider EN/TPN if NPO >7days 2. Continue plan of care Expected Outcomes/Goals: 1. Pt will meet >75% of estimated needs within 2-3 days Date of Service: Sep 24, 2024 Billing Provider: IVAN BECK MD Common Visit Codes: [id number] CARE 30-74 MIN DAVID RIDDLE RESDIENT Sep 24, 2024 19:04 IVAN BECK MD Sep 25, 2024 09:26
--- NOTE | 2024-09-24 23:19 | DVHPN2 ---
Progress Note - Dictate Date Seen: Sep 24, 2024 Has the PT tested + for MRSA If YES, has PT been informed?: Yes Medical Necessity Reason Pt with a Central, PICC or Fol: Yes The following are medically ne: Betancourt Catheter Reason for betancourt catheter: Strict I&O Subjective Patient was seen and evaluated in follow up in the ICU. Patient is intubated and sedated on a ventilator. 40% FiO2. Patient noted to have minimal amount of purulent wound drainage from her right abdominal wound scab. Wound care was done earlier today. NA 152, CL 113, BUN 27. Chest x-ray is unchanged. vital signs Vital Sign Date Time Temp Pulse Resp B/P (MAP) Pulse Ox O2 Delivery O2 Flow Rate FiO2 09/24/24 10:00 81 09/24/24 10:00 22 94 Mechanical Ventilator+ 40 40 09/24/24 10:00 125/47 (73) 09/24/24 08:00 99.3 99.3 09/22/24 18:00 12 Total Intake and Output 09/23/24 09/23/24 09/24/24 15:00 23:00 07:00 Intake Total 520.000 ml 970.000 ml 798.000 ml Output Total 1100 ml 950 ml Balance 520.000 ml -130.000 ml -152.000 ml medications Current Medications Medications Dose Ordered Sig/[place] Route Start Time Stop Time Status Last Admin Dose Admin Acetaminophen 650 mg Q4HP PRN GT 09/03/24 10:00 09/03/24 10:21 650 MG Pantoprazole Sodium 40 mg DAILY IV 09/04/24 10:00 09/24/24 08:40 40 MG Sodium Chloride 10 ml QSHIFT@, IV 09/13/24 22:00 09/24/24 08:40 10 ML Enoxaparin Sodium 100 mg Q12HR SC 09/19/24 22:00 09/24/24 08:40 100 MG Albuterol 2.5 mg Q6HPRN PRN NEB 09/21/24 19:00 09/23/24 18:57 2.5 MG Ipratropium [place] 0.5 mg Q6HPRN PRN NEB 09/21/24 19:00 09/23/24 18:57 0.5 MG Vancomycin HCl 0 ml @ 0 mls/hr UD IV 09/22/24 10:45 Levofloxacin 50 ml @ 50 mls/hr DAILY@1200,1300 IV 09/22/24 12:00 09/23/24 14:18 50 MLS/HR Vancomycin HCl 300 ml @ 200 mls/hr Q12H IV 09/23/24 00:00 09/24/24 11:17 200 MLS/HR Midazolam HCl 50 ml @ 1 mls/hr Q24H IV 09/22/24 19:45 09/24/24 08:27 15 MLS/HR Fentanyl Citrate 250 ml @ 2.5 mls/hr Q24H IV 09/22/24 19:45 09/24/24 07:21 35 MLS/HR Norepinephrine Bitartrate 32 mg/ Sodium Chloride 250 ml @ 0.938 mls/ hr Q24H IV 09/22/24 21:15 09/22/24 21:50 0.938 MLS/HR Dexmedetomidine HCl 400 mcg/ Dextrose 100 ml @ 4.915 mls/ hr [id number] IV 09/23/24 09:30 Sodium Chloride 1,000 ml @ 75 mls/hr [id number] IV 09/23/24 11:15 09/23/24 23:55 75 MLS/HR Enteral Nutritional Formula 1,000 ml 30ML/HR GT 09/23/24 12:30 09/24/24 00:14 1,000 ML objective GENERAL: Intubated on ventilator. Morbidly obese. LUNGS: Decreased breath sounds. CARDIOVASCULAR: Heart sounds are good. ABDOMEN: Soft. Morbid pannus limited physical palpation. SKIN: Multiple scars to abdomen. laboratory and microbiology Laboratory Tests 09/24/24 03:42 Test 09/24/24 03:42 Range/Units Serum Glucose 107 H 74-106 mg/dL Problem List Septic shock. Acute on chronic respiratory failure. NSTEMI type II secondary to above. Rule out structural heart disease. Prolonged QT interval. Morbid obesity, Class 3. Assessment/Plan Continued all current supportive medical care. DVT and GI prophylactics. Diuretics with Lasix. Nebulized breathing treatments. Vasopressors for hemodynamic support. Additional plan as per the hospital course. Critical care time of 45 minutes provided to include time spent evaluation of patient at bedside, when appropriate patient/family education for diagnosis, treatment plan, review of pertinent medical information and discussion of care with specialty providers and PCP. Mechanical ventilator parameters, treatment and adjustments have personally been reviewed by me and treatment plan by [employer] analyst has also been reviewed. Dietary Evaluation Review Comments: 1. Consider EN/TPN if NPO >7days 2. Continue plan of care Expected Outcomes/Goals: 1. Pt will meet >75% of estimated needs within 2-3 days Plan discussed with: Other RELL STEWART MD Sep 24, 2024 11:29
[2024-09-25] VITALS (109 sets, daily range): BP systolic 92–132; BP diastolic 34–53; PULSE 63–80; RESP 20–22; TEMP 97.8–99.4; O2SAT 92–100
[2024-09-25 04:09] LABS: Basophils # (auto) 0.3 10 ^3/uL (0-0.2); Basophils % (auto) 2.6 % (0.0-2.0); Eosinophils # (auto) 0.9 10 ^3/uL (0-0.8); Eosinophils % (auto) 9.3 % (0.0-7.0); Hematocrit 33.6 % (36.0-46.0); Hemoglobin 10.8 g/dL (12.2-16.2); Lymphocytes # (auto) 1.3 10 ^3/uL (0.4-5.4); Lymphocytes % (auto) 13.1 % (10.0-50.0); Mean Corpuscular Hemoglobin 29.5 pg (28.0-32.0); Mean Corpuscular Hgb Conc. 32.3 g/dL (32.0-36.0); Mean Corpuscular Volume 91.2 fL (80.0-100.0); Monocytes # (auto) 0.9 10 ^3/uL (0-1.3); Monocytes % (auto) 9.4 % (0.0-12.0); Neutrophils # (auto) 6.4 10 ^3/uL (1.6-8.6); Neutrophils % (auto) 65.6 % (37.0-80.0); Nucleated Red Blood Cells % 0.1 %; Platelet Count (auto) 226 10^3/uL (140-450); Red Blood Cells 3.68 10^6/uL (4.0-5.20); Red Cell Distribution Width 14.5 % (11.8-14.3); White Blood Cell 9.7 10^3/uL (4.4-10.8)
[2024-09-25 04:23] LABS: Alanine Aminotransferase 27 U/L (7-40); Carbon Dioxide 25 mmol/L (20-31)
[2024-09-25 04:24] LABS: Albumin 3.2 g/dL (3.2-4.8); Alkaline Phosphatase 120 U/L (46-116); Anion Gap 9 (5-15); Aspartate Aminotransferase 13 U/L (13-40); BUN/Creatinine Ratio 25.7 (10.0-20.0); Bilirubin, Total 0.4 mg/dL (0.2-1.0); Blood Urea Nitrogen 19 mg/dL (9-23); Calcium 10.6 mg/dL (8.7-10.4); Chloride 113 mmol/L (98-107); Glucose 114 mg/dL (74-106); Potassium 3.2 mmol/L (3.5-5.1); Sodium 147 mmol/L (136-145)
--- NOTE | 2024-09-25 05:35 | DVH ---
CHEST RADIOGRAPH Indication: Pneumonia Technique: Single frontal view of the chest was obtained Comparison: XY CHEST XRAY 1 VIEW on DOS: 09/24/24, XY CHEST XRAY 1 VIEW on DOS: 09/23/24, XY CHEST PO RTABLE on DOS: 09/22/24 IMPRESSION: There are low lung volumes with prominence of the cardiac silhouette. Likely small bilateral pleural effusions, left greater than right with bibasilar atelectasis. Moderate pulmonary vascular congestio n has increased. Support lines and tubes appear similar in position. No pneumothorax.
[2024-09-25] MEDS ORDERED: SOD CHL 0.9%/ KCL 40MEQ 1,000 ML IV SCH (12:00)
[2024-09-25] MEDS: POTASSIUM CHL 20MEQ/100ML 100 ML IV SCH (12:58)
--- NOTE | 2024-09-25 14:17 | DVHPN2 ---
Subjective The patient is seen and examined at bedside. The patient remained intubated. No change overnight. Reviewed: Care Plan, H&P, Labs, Medications, Previous Orders, Radiology, Other (Consultants) Changes from previous H/P or p: No Changes Objective Vitals Vital Signs Date Time Temp Pulse Resp B/P (MAP) Pulse Ox O2 Delivery O2 Flow Rate FiO2 09/25/24 14:15 66 22 100/44 (62) 95 30 09/25/24 12:00 Mechanical Ventilator+ 09/25/24 12:00 98.5 98.5 Intake/Output Intake and Output 09/25/24 06:59 Intake Total 3547.879 ml Output Total 1375 ml Balance 2172.879 ml Intake Oral 0 ml IV Total 3292.879 ml Tube Feeding 255 ml Output Urine Total 1375 ml General Appearance: Other (Sedated and intubated) HEENT: Atraumatic, PERRLA Lungs: Other (Crackles bilateral lungs) Cardiovascular: Regular rate Abdomen: Other Extremities: Other (Decreased edema bilateral lower extremities/skin shrinkage) Medications Current Medications Medications Dose Ordered Sig/[place]acia Route Start Time Stop Time Status Last Admin Dose Admin Acetaminophen 650 mg Q4HP PRN GT 09/03/24 10:00 09/03/24 10:21 650 MG Pantoprazole Sodium 40 mg DAILY IV 09/04/24 10:00 09/25/24 07:58 40 MG Sodium Chloride 10 ml QSHIFT@ IV 09/13/24 22:00 09/25/24 07:59 10 ML Enoxaparin Sodium 100 mg Q12HR SC 09/19/24 22:00 09/25/24 07:59 100 MG Albuterol 2.5 mg Q6HPRN PRN NEB 09/21/24 19:00 09/23/24 18:57 2.5 MG Ipratropium [place] 0.5 mg Q6HPRN PRN NEB 09/21/24 19:00 09/23/24 18:57 0.5 MG Vancomycin HCl 0 ml @ 0 mls/hr UD IV 09/22/24 10:45 Levofloxacin 50 ml @ 50 mls/hr DAILY@1200,1300 IV 09/22/24 12:00 09/25/24 10:56 50 MLS/HR Midazolam HCl 50 ml @ 1 mls/hr Q24H IV 09/22/24 19:45 09/25/24 14:08 7 MLS/HR Fentanyl Citrate 250 ml @ 2.5 mls/hr Q24H IV 09/22/24 19:45 09/25/24 10:43 30 MLS/HR Norepinephrine Bitartrate 32 mg/ Sodium Chloride 250 ml @ 0.938 mls/ hr Q24H IV 09/22/24 21:15 09/22/24 21:50 0.938 MLS/HR Dexmedetomidine HCl 400 mcg/ Dextrose 100 ml @ 4.915 mls/ hr [id number] IV 09/23/24 09:30 Enteral Nutritional Formula 1,000 ml 30ML/HR GT 09/23/24 12:30 09/24/24 00:14 1,000 ML Dextrose 1,000 ml @ 125 mls/hr Q8H IV 09/24/24 14:15 09/25/24 23:50 09/25/24 06:15 125 MLS/HR Vancomycin HCl 250 ml @ 250 mls/hr Q8H IV 09/25/24 22:00 Potassium Chloride/Sodium Chloride 1,000 ml @ 50 mls/hr Q20H IV 09/25/24 12:00 Cancel Potassium Chloride 100 ml @ 50 mls/hr Q2H IV 09/25/24 12:15 09/25/24 16:14 09/25/24 12:58 50 MLS/HR Laboratory Results Laboratory Tests 09/25/24 03:01 Chemistry Test 09/25/24 03:01 Albumin 3.2 g/dL (3.2-4.8) Calcium Level 10.6 mg/dL (8.7-10.4) H Total Protein 6.0 g/dL (5.7-8.2) LFT Test 09/25/24 03:01 Alanine Aminotransferase (ALT) 27 U/L (7-40) Alkaline Phosphatase 120 U/L (46-116) H Aspartate Amino Transferase (AST) 13 U/L (13-40) Total Bilirubin 0.4 mg/dL (0.2-1.0) Urinalysis Test 09/04/24 14:26 09/23/24 09:25 Urine Amorphous Crystals Few /hpf (None Seen) Urine Total Protein 253.7 mg/dL (1-14) H Urine Color Light-yellow (Yellow) Urine Clarity Turbid (Clear) H Urine pH 5.0 (5.0-9.0) Urine Specific [place] 1.011 (1.001-1.035) Urine Protein Negative (Negative) Urine Ketones Negative (Negative) Urine Blood 1+ /uL (Negative) H Urine Nitrite Negative (Negative) Urine Bilirubin Negative (Negative) Urine Urobilinogen Normal mg/dL (Negative) Urine Leukocyte Esterase 1+ /uL (Negative) Urine RBC 33 /hpf (0 - 4) Urine WBC 14 /hpf (0 - 5) Urine Squamous Epithelial Cells Few /hpf (<5) Urine Bacteria None seen /hpf (None Seen) Urine Hyaline Casts Many /lpf (0 - 2) Urine Mucus Few (None Seen) Urine Yeast (Budding) Moderate /hpf (None Seen) Urine Creatinine 24.25 mg/dL (30.0-125.0) L Urine Sodium 109 mmol/L (40-220) Urine Glucose Normal mg/dL (Normal) Blood Gas Results Test 09/25/24 06:58 Arterial Blood pH 7.392 (7.350-7.450) FiO2 % 35.0 Microbiology Microbiology Date/Time Source Procedure Growth Status 09/24/24 10:59 Blood Blood Culture - Preliminary NO GROWTH AFTER 24 HOURS OF INCUBATION. Resulted 09/22/24 19:54 Trachea Gram Stain - Final Resulted 09/22/24 19:54 Respiratory Culture - Preliminary Methicillin Resistant S.aureus Resulted 09/22/24 10:59 Sputum Gram Stain - Final Resulted 09/22/24 10:59 Respiratory Culture - Preliminary Methicillin Resistant S.aureus Resulted 09/11/24 00:00 Voided Urine Urine Culture - Final Complete 09/06/24 13:00 Vaginal Vaginal Culture - Final Enterococcus faecalis Methicillin Resistant S.aureus Complete Labs and/or images reviewed: Labs reviewed by me Assessment/Plan Assessment/Plan NEURO: Acute metabolic encephalopathy likely due to septic shock Patient was sedated and on mechanical ventilation, RASS score -5 CARDIOVASCULAR: NSTEMI type 2 likely due to septic shock Has history of pulmonary emboli in 2016 Cardiology on the board, recommended conservative management Echocardiogram shows mild LVH with mild LV diastolic dysfunction with ejection fraction of 65 Continuing Lasix as needed PULMONARY: Acute Hypoxic respiratory failure, likely due to pneumonia Septic shock likely due to pneumonia Pneumonia due to MRSA Bronchoscopy performed on 09/07 shows lots of secretion on the left main bronchus, bronchial lavage results shows MRSA Bronchoscopy was repeated on 09/08, shows less mucus secretion in compared to previous bronchoscopy Blood culture from 09/02/2024 shows staph hominis sensitive to vancomycin Sputum culture from 09/02/2024 shows MRSA, Streptococcus pneumoniae vancomycin Influenza and COVID-19 screening negative Blood culture from 09/11 shows Staphylococcus epidermidis, sensitive to vancomycin Cefepime was given for 5 days from to 09/06, meropenem given for 3 days from 09/03 to 09/05, vancomycin given 14 days from 09/03 to, ceftriaxone 2 g daily was given for 6 days from 09/13 to 09/19, linezolid given for 7 days from 09/11 to 09/17 Continue N-acetylcysteine Chest x-ray shows bilateral infiltration, likely due to congestion, improved in comparison to yesterday ABGs shows respiratory acidosis, respiratory rate increased from 18 to 22 Breathing treatment q.6 hours as needed Patient was respiratory status worsened during the morning, on auscultation there was course breath sounds bilaterally, 80 mg of Lasix given, patient was put on BiPAP 26/04, with the patient condition worsen and the patient was sedated has been put on mechanical ventilation in the setting of VT 450, RR 22, FiO2 85% and peep 5 Bronchoscopy performed due to asymmetric course breath sounds, found copious mucous secretion on the left mid and lower lobe, and right lower lobe Started back vancomycin and levofloxacin on 09/22 Repeat sputum culture on 09/22 shows Staph Aureus GI: Patient has history of multiple surgery of hernia(2015) and bowel obstruction(2019) Abdominal ventral hernias, abdominal CT scan shows multiple ventral wall hernias containing fat and bowel with mild dilatation of proximal jejunum loops with jejunal loops course into the abdominal hernia Possible bowel obstruction, surgery consulted, recommended conservative management, suggested that small bowel series could not perform at the moment due to respiratory status of the patient Transaminitis, likely ischemic secondary to septic shock Patient had 1 bowel movement last night Bowel regimen: Docusate GI ppx: Protonix RENAL: FEDE , likely hemodynamically mediated, improved Nephrology on the board, last HD session on 09/10 Hypernatremia free water deficit calculated, 4 L D5W 125ml/hr Possible rhabdomyolysis, likely due to immobilization Creatinine kinase is raised at 8215, normalized ENDOCRINE: Hypertriglyceridemia, TG 623 09/04, 320 at 09/15 Likely due to propofol, discontinued propofol Continue Atorvastatin 40 mg ID: Sputum cultures from 09/02/2024 shows MRSA, Streptococcus pneumoniae Blood culture from 09/02/2024 shows Staph hominis Results from bronchial washing, from 09/07/2024 shows no growth after 24 hours ID on the board, suggested that the culture results are probably due to contamination and recommended to repeat the culture Blood culture from 09/11 shows Staphylococcus epidermidis, likely due to continue Repeat UA from 08/24 shows UTI picture Patient has spikes of mild fever, repeat Blood culture on 09/23 Possible PID Patient had purulent vaginal discharge Vaginal bacterial culture, shows coagulase-negative Staphylococcus with few growth of possible Enterococcus species Metabolic: Hyperkalemia, improved Hyponatremia, improved Hypokalemia, supplemented Hypomagnesemia, supplemented Hypernatremia, monitoring Multidrug abuser: Per patient's daughter, she is a current user of amphetamine, marijuana and smoking cigarettes Hepatitis B and C serology negative HIV is negative Heme: DVT Doppler ultrasound of lower limb at 08/15 shows, nonocclusive DVT at left popliteal vein Lovenox 100 mg b.i.d. LINES/DRAINS/ACCESS: ETT, intubated on 09/02/2024 IV access Left upper arm PICC line, placed on 09/13 Drips: Levophed 12 Fentanyl 350 Versed 10 DVT ppx: Therapeutic dose of Lovenox DIET: Jevity 30ml/hr CODE STATUS: Full code Continuing current management. Discussed with RN. I will replace potassium with KCl 40 mEq x 1 today. This medical document was created using an electronic medical record system with [employer] direct computerized dictation system. Although this document has been carefully reviewed, there may still be some phonetic and typographical errors. These areas are purely typographical due to imperfections of the software programs, and do not reflect any compromise in the patient's medical care. Plan discussed with: Other (RN) My Orders Orders - RADHA DE LA TORRE MD Procedure Category Date Status Time Potassium Chl PHA 09/25/24 In Process 20meq/100ml 12:15 Date of Service: Sep 25, 2024 Billing Provider: RADHA DE LA TORRE MD Common Visit Codes: [id number] INP/OBS CARE(HIGH) RADHA DE LA TORRE MD Sep 25, 2024 14:17
--- NOTE | 2024-09-25 16:18 | DVHPN2 ---
Progress Note - Dictate Date Seen: Sep 25, 2024 Has the PT tested + for MRSA If YES, has PT been informed?: Yes Medical Necessity Reason Pt with a Central, PICC or Fol: Yes The following are medically ne: Betancourt Catheter Reason for betancourt catheter: Strict I&O Subjective Patient is currently intubated vital signs Vital Sign Date Time Temp Pulse Resp B/P (MAP) Pulse Ox O2 Delivery O2 Flow Rate FiO2 09/25/24 16:00 22 92 Mechanical Ventilator+ 40 40 09/25/24 16:00 99.3 73 118/43 (68) 99.3 Total Intake and Output 09/24/24 09/24/24 09/25/24 14:59 22:59 06:59 Intake Total 524.441 ml 1495.938 ml 1527.50 ml Output Total 750 ml 625 ml Balance 524.441 ml 745.938 ml 902.50 ml medications Current Medications Medications Dose Ordered Sig/[place] Route Start Time Stop Time Status Last Admin Dose Admin Acetaminophen 650 mg Q4HP PRN GT 09/03/24 10:00 09/03/24 10:21 650 MG Pantoprazole Sodium 40 mg DAILY IV 09/04/24 10:00 09/25/24 07:58 40 MG Sodium Chloride 10 ml QSHIFT@ IV 09/13/24 22:00 09/25/24 07:59 10 ML Enoxaparin Sodium 100 mg Q12HR SC 09/19/24 22:00 09/25/24 07:59 100 MG Albuterol 2.5 mg Q6HPRN PRN NEB 09/21/24 19:00 09/23/24 18:57 2.5 MG Ipratropium [place] 0.5 mg Q6HPRN PRN NEB 09/21/24 19:00 09/23/24 18:57 0.5 MG Vancomycin HCl 0 ml @ 0 mls/hr UD IV 09/22/24 10:45 Levofloxacin 50 ml @ 50 mls/hr DAILY@1200,1300 IV 09/22/24 12:00 09/25/24 10:56 50 MLS/HR Midazolam HCl 50 ml @ 1 mls/hr Q24H IV 09/22/24 19:45 09/25/24 14:08 7 MLS/HR Fentanyl Citrate 250 ml @ 2.5 mls/hr Q24H IV 09/22/24 19:45 09/25/24 10:43 30 MLS/HR Norepinephrine Bitartrate 32 mg/ Sodium Chloride 250 ml @ 0.938 mls/ hr Q24H IV 09/22/24 21:15 09/22/24 21:50 0.938 MLS/HR Dexmedetomidine HCl 400 mcg/ Dextrose 100 ml @ 4.915 mls/ hr [id number] IV 09/23/24 09:30 Enteral Nutritional Formula 1,000 ml 30ML/HR GT 09/23/24 12:30 09/24/24 00:14 1,000 ML Dextrose 1,000 ml @ 125 mls/hr Q8H IV 09/24/24 14:15 09/25/24 23:50 09/25/24 06:15 125 MLS/HR Vancomycin HCl 250 ml @ 250 mls/hr Q8H IV 09/25/24 22:00 Potassium Chloride/Sodium Chloride 1,000 ml @ 50 mls/hr Q20H IV 09/25/24 12:00 Cancel objective elderly female intubated no ankle edema laboratory and microbiology Laboratory Tests 09/25/24 03:01 Test 09/25/24 03:01 Range/Units Serum Glucose 114 H 74-106 mg/dL Assessment/Plan Acute kidney injury to hemodynamic etiology +/- tubular injury oliguric requiring initiation of hemodialysis but has had full renal recovery and has resolved multiple resolving Tabby in past but admission cr less than 1 Acute respiratory failure, patient intubated on ventilator-> reintubated 24 hours ago Septic shock with multiorgan involvement history of PE Hypokakalemia Vancomycin toxicity Continue with free water until hypernatremia resolved Patient's kidney injury has resolved Avoid hypotension Monitor urinary output Avoid contrast studies unless absolutely necessary. From a nephrology standpoint there is no further recommendations as patient has recovered and does not require dialysis. I will sign off the case. Reconsult if you have any further questions or require follow-up Dietary Evaluation Review Comments: 1. Consider EN/TPN if NPO >7days 2. Continue plan of care Expected Outcomes/Goals: 1. Pt will meet >75% of estimated needs within 2-3 days Plan discussed with: Other GUCCI ASHBY MD Sep 25, 2024 16:18
--- NOTE | 2024-09-25 17:04 | DVHPN2 ---
Progress Note - Dictate Date Seen: Sep 25, 2024 Has the PT tested + for MRSA If YES, has PT been informed?: Yes Medical Necessity Reason Pt with a Central, PICC or Fol: Yes The following are medically ne: Betancourt Catheter Reason for betancourt catheter: Strict I&O Subjective Patient was seen and evaluated in follow up in the ICU. Patient is intubated and sedated on a ventilator. 40% FiO2. Patient received wound care earlier today. NA 147, K 3.2, CL 113. Chest x-ray shows low lung volumes with prominence of the cardiac silhouette, likely small bilateral pleural effusions, left greater than right with bibasilar atelectasis, moderate pulmonary vascular congestion has increased. vital signs Vital Sign Date Time Temp Pulse Resp B/P (MAP) Pulse Ox O2 Delivery O2 Flow Rate FiO2 09/25/24 10:00 66 22 116/43 (67) 95 09/25/24 10:00 Mechanical Ventilator+ 40 40 09/25/24 08:00 98.3 98.3 Total Intake and Output 09/24/24 09/24/24 09/25/24 15:00 23:00 07:00 Intake Total 643.504 ml 1495.00 ml 1519.50 ml Output Total 750 ml 625 ml Balance 643.504 ml 745.00 ml 894.50 ml medications Current Medications Medications Dose Ordered Sig/[place] Route Start Time Stop Time Status Last Admin Dose Admin Acetaminophen 650 mg Q4HP PRN GT 09/03/24 10:00 09/03/24 10:21 650 MG Pantoprazole Sodium 40 mg DAILY IV 09/04/24 10:00 09/25/24 07:58 40 MG Sodium Chloride 10 ml QSHIFT@,22 IV 09/13/24 22:00 09/25/24 07:59 10 ML Enoxaparin Sodium 100 mg Q12HR SC 09/19/24 22:00 09/25/24 07:59 100 MG Albuterol 2.5 mg Q6HPRN PRN NEB 09/21/24 19:00 09/23/24 18:57 2.5 MG Ipratropium [place] 0.5 mg Q6HPRN PRN NEB 09/21/24 19:00 09/23/24 18:57 0.5 MG Vancomycin HCl 0 ml @ 0 mls/hr UD IV 09/22/24 10:45 Levofloxacin 50 ml @ 50 mls/hr DAILY@1200,1300 IV 09/22/24 12:00 09/25/24 10:56 50 MLS/HR Midazolam HCl 50 ml @ 1 mls/hr Q24H IV 09/22/24 19:45 09/25/24 07:19 7 MLS/HR Fentanyl Citrate 250 ml @ 2.5 mls/hr Q24H IV 09/22/24 19:45 09/25/24 10:43 30 MLS/HR Norepinephrine Bitartrate 32 mg/ Sodium Chloride 250 ml @ 0.938 mls/ hr Q24H IV 09/22/24 21:15 09/22/24 21:50 0.938 MLS/HR Dexmedetomidine HCl 400 mcg/ Dextrose 100 ml @ 4.915 mls/ hr [id number] IV 09/23/24 09:30 Enteral Nutritional Formula 1,000 ml 30ML/HR GT 09/23/24 12:30 09/24/24 00:14 1,000 ML Dextrose 1,000 ml @ 125 mls/hr Q8H IV 09/24/24 14:15 09/25/24 23:50 09/25/24 06:15 125 MLS/HR objective GENERAL: Intubated on ventilator. Morbidly obese. LUNGS: Decreased breath sounds. CARDIOVASCULAR: Heart sounds are good. ABDOMEN: Soft. Morbid pannus limited physical palpation. SKIN: Multiple scars to abdomen. laboratory and microbiology Laboratory Tests 09/25/24 03:01 Test 09/25/24 03:01 Range/Units Serum Glucose 114 H 74-106 mg/dL Problem List Septic shock. Acute on chronic respiratory failure. NSTEMI type II secondary to above. Rule out structural heart disease. Prolonged QT interval. Morbid obesity, Class 3. Assessment/Plan Continued all current supportive medical care. DVT and GI prophylactics. Diuretics with Lasix. Nebulized breathing treatments. Vasopressors for hemodynamic support. Additional plan as per the hospital course. Critical care time of 45 minutes provided to include time spent evaluation of patient at bedside, when appropriate patient/family education for diagnosis, treatment plan, review of pertinent medical information and discussion of care with specialty providers and PCP. Mechanical ventilator parameters, treatment and adjustments have personally been reviewed by me and treatment plan by burial needs salesperson has also been reviewed. Dietary Evaluation Review Comments: 1. Consider EN/TPN if NPO >7days 2. Continue plan of care Expected Outcomes/Goals: 1. Pt will meet >75% of estimated needs within 2-3 days Plan discussed with: Other RELL STEWART MD Sep 25, 2024 11:21
[2024-09-25] MEDS: VANCOMYCIN 1GM/250ML KIT 250 ML IV SCH (21:42)
[2024-09-26] VITALS (109 sets, daily range): BP systolic 98–153; BP diastolic 36–60; PULSE 65–95; RESP 19–26; TEMP 98.4–99.7; O2SAT 76–100
[2024-09-26 03:20] LABS: Basophils # (auto) 0.1 10 ^3/uL (0-0.2); Basophils % (auto) 1.2 % (0.0-2.0); Eosinophils # (auto) 0.7 10 ^3/uL (0-0.8); Eosinophils % (auto) 11.3 % (0.0-7.0); Hematocrit 31.5 % (36.0-46.0); Hemoglobin 10.3 g/dL (12.2-16.2); Lymphocytes # (auto) 1.3 10 ^3/uL (0.4-5.4); Lymphocytes % (auto) 20.8 % (10.0-50.0); Mean Corpuscular Hemoglobin 29.6 pg (28.0-32.0); Mean Corpuscular Hgb Conc. 32.8 g/dL (32.0-36.0); Mean Corpuscular Volume 90.4 fL (80.0-100.0); Monocytes # (auto) 0.8 10 ^3/uL (0-1.3); Neutrophils # (auto) 3.5 10 ^3/uL (1.6-8.6); Neutrophils % (auto) 53.7 % (37.0-80.0); Nucleated Red Blood Cells % 0.1 %; Platelet Count (auto) 260 10^3/uL (140-450); Red Blood Cells 3.49 10^6/uL (4.0-5.20); Red Cell Distribution Width 14.2 % (11.8-14.3); White Blood Cell 6.5 10^3/uL (4.4-10.8)
[2024-09-26 03:30] LABS: Sodium 143 mmol/L (136-145)
[2024-09-26 03:31] LABS: Anion Gap 8 (5-15); Carbon Dioxide 26 mmol/L (20-31)
[2024-09-26 03:37] LABS: BUN/Creatinine Ratio 14.7 (10.0-20.0); Blood Urea Nitrogen 10 mg/dL (9-23)
[2024-09-26 03:43] LABS: Calcium 10.6 mg/dL (8.7-10.4); Chloride 109 mmol/L (98-107); Glucose 122 mg/dL (74-106); Potassium 3.5 mmol/L (3.5-5.1)
--- NOTE | 2024-09-26 05:59 | DVH ---
CHEST RADIOGRAPH Indication: ARF, INTUBATED Technique: Single frontal view of the chest was obtained COMPARISON: XY CHEST XRAY 1 VIEW on DOS: 09/25/24, XY CHEST XRAY 1 VIEW on DOS: 09/24/24, XY CHEST XR AY 1 VIEW on DOS: 09/23/24, XY CHEST XRAY 1 VIEW on DOS: 09/24/24 FINDINGS: Lines and Tubes: Endotracheal tube, enteric catheter and left PICC in satisfactory position. Lungs: Multifocal airspace disease. Pleura: No effusion. No pneumothorax. Cardiomediastinal contours: Unremarkable Bones: Unremarkable IMPRESSION: Lines and tubes in satisfactory position. No significant interval change.
[2024-09-26 07:29] LABS: Base Excess -0.7 mmol/L (-2.0-3.0)
[2024-09-26 08:29] LABS: Sodium 142 mmol/L (136-145)
[2024-09-26 08:30] LABS: Anion Gap 8 (5-15); Calcium 10.2 mg/dL (8.7-10.4); Carbon Dioxide 24 mmol/L (20-31)
[2024-09-26 08:35] LABS: BUN/Creatinine Ratio 12.7 (10.0-20.0)
[2024-09-26 08:39] LABS: Blood Urea Nitrogen 7 mg/dL (9-23); Chloride 110 mmol/L (98-107); Glucose 125 mg/dL (74-106); Potassium 3.2 mmol/L (3.5-5.1)
--- NOTE | 2024-09-26 12:52 | DVHPN2 ---
Progress Note - Dictate Date Seen: Sep 26, 2024 Has the PT tested + for MRSA If YES, has PT been informed?: Yes Medical Necessity Reason Pt with a Central, PICC or Fol: Yes The following are medically ne: Betancourt Catheter Reason for betancourt catheter: Strict I&O Subjective Covering for Dr. Ruiz. called to bedside for wound check. pt is s/p ventral hernia repair now with small open wounds with min drainage. vital signs Vital Sign Date Time Temp Pulse Resp B/P (MAP) Pulse Ox O2 Delivery O2 Flow Rate FiO2 09/26/24 12:00 98.4 68 22 138/54 (82) 99 98.4 09/26/24 12:00 Mechanical Ventilator+ 30 30 Total Intake and Output 09/25/24 09/25/24 09/26/24 15:00 23:00 07:00 Intake Total 1637.254 ml 1377.189 ml 626.690 ml Output Total 650 ml 1650 ml Balance 1637.254 ml 727.189 ml -1023.310 ml medications Current Medications Medications Dose Ordered Sig/[place] Route Start Time Stop Time Status Last Admin Dose Admin Acetaminophen 650 mg Q4HP PRN GT 09/03/24 10:00 09/03/24 10:21 650 MG Pantoprazole Sodium 40 mg DAILY IV 09/04/24 10:00 09/26/24 08:12 40 MG Sodium Chloride 10 ml QSHIFT@ IV 09/13/24 22:00 09/26/24 08:12 10 ML Enoxaparin Sodium 100 mg Q12HR SC 09/19/24 22:00 09/26/24 08:13 100 MG Albuterol 2.5 mg Q6HPRN PRN NEB 09/21/24 19:00 09/23/24 18:57 2.5 MG Ipratropium [place] 0.5 mg Q6HPRN PRN NEB 09/21/24 19:00 09/23/24 18:57 0.5 MG Vancomycin HCl 0 ml @ 0 mls/hr UD IV 09/22/24 10:45 Levofloxacin 50 ml @ 50 mls/hr DAILY@1200,1300 IV 09/22/24 12:00 09/26/24 10:20 50 MLS/HR Midazolam HCl 50 ml @ 1 mls/hr Q24H IV 09/22/24 19:45 09/26/24 11:27 7 MLS/HR Fentanyl Citrate 250 ml @ 2.5 mls/hr Q24H IV 09/22/24 19:45 09/26/24 09:20 30 MLS/HR Norepinephrine Bitartrate 32 mg/ Sodium Chloride 250 ml @ 0.938 mls/ hr Q24H IV 09/22/24 21:15 09/22/24 21:50 0.938 MLS/HR Dexmedetomidine HCl 400 mcg/ Dextrose 100 ml @ 4.915 mls/ hr [id number] IV 09/23/24 09:30 Enteral Nutritional Formula 1,000 ml 30ML/HR GT 09/23/24 12:30 09/24/24 00:14 1,000 ML Vancomycin HCl 250 ml @ 250 mls/hr Q8H IV 09/25/24 22:00 09/26/24 05:31 250 MLS/HR Potassium Chloride/Sodium Chloride 1,000 ml @ 50 mls/hr Q20H IV 09/25/24 12:00 Cancel objective GEN: intubated/sedated. ABD: obese abdomen with hernias. there are two 1 cm skin openings that have not healed up d/t exposed sutures. sutures were removed and wound cleaned. Gram stain and cx of wound done. laboratory and microbiology Laboratory Tests 09/26/24 08:03 09/26/24 02:48 Test 09/26/24 08:03 Range/Units Serum Glucose 125 H 74-106 mg/dL Assessment/Plan A: 1. small chronic open wounds x 2 of abdominal wall, superficial. P: 1. local wound care with BID 1/4 in iodoform packing strips. Dietary Evaluation Review Comments: 1. Consider EN/TPN if NPO >7days 2. Continue plan of care Expected Outcomes/Goals: 1. Pt will meet >75% of estimated needs within 2-3 days Plan discussed with: Other TOMY MOSLEY MD Sep 26, 2024 12:52
--- NOTE | 2024-09-26 12:54 | DVHPN2 ---
Subjective The patient is seen and examined at bedside. The patient remained intubated. No change overnight. Patient is not tolerating CPAP trial ,back on sedation Reviewed: Care Plan, H&P, Labs, Medications, Previous Orders, Radiology, Other (Consultants) Changes from previous H/P or p: No Changes Objective Vitals Vital Signs Date Time Temp Pulse Resp B/P (MAP) Pulse Ox O2 Delivery O2 Flow Rate FiO2 09/26/24 12:00 98.4 68 22 138/54 (82) 99 98.4 09/26/24 12:00 Mechanical Ventilator+ 30 30 Intake/Output Intake and Output 09/26/24 07:00 Intake Total 3641.133 ml Output Total 2300 ml Balance 1341.133 ml IV Total 3475.133 ml Tube Feeding 166 ml Output Urine Total 2300 ml General Appearance: Other (Sedated and intubated) HEENT: Atraumatic, PERRLA Lungs: Other (Crackles bilateral lungs) Cardiovascular: Regular rate Abdomen: Other Extremities: Other (Decreased edema bilateral lower extremities/skin shrinkage) Medications Current Medications Medications Dose Ordered Sig/[place]acia Route Start Time Stop Time Status Last Admin Dose Admin Acetaminophen 650 mg Q4HP PRN GT 09/03/24 10:00 09/03/24 10:21 650 MG Pantoprazole Sodium 40 mg DAILY IV 09/04/24 10:00 09/26/24 08:12 40 MG Sodium Chloride 10 ml QSHIFT@ IV 09/13/24 22:00 09/26/24 08:12 10 ML Enoxaparin Sodium 100 mg Q12HR SC 09/19/24 22:00 09/26/24 08:13 100 MG Albuterol 2.5 mg Q6HPRN PRN NEB 09/21/24 19:00 09/23/24 18:57 2.5 MG Ipratropium [place] 0.5 mg Q6HPRN PRN NEB 09/21/24 19:00 09/23/24 18:57 0.5 MG Vancomycin HCl 0 ml @ 0 mls/hr UD IV 09/22/24 10:45 Levofloxacin 50 ml @ 50 mls/hr DAILY@1200,1300 IV 09/22/24 12:00 09/26/24 10:20 50 MLS/HR Midazolam HCl 50 ml @ 1 mls/hr Q24H IV 09/22/24 19:45 09/26/24 11:27 7 MLS/HR Fentanyl Citrate 250 ml @ 2.5 mls/hr Q24H IV 09/22/24 19:45 09/26/24 09:20 30 MLS/HR Norepinephrine Bitartrate 32 mg/ Sodium Chloride 250 ml @ 0.938 mls/ hr Q24H IV 09/22/24 21:15 09/22/24 21:50 0.938 MLS/HR Dexmedetomidine HCl 400 mcg/ Dextrose 100 ml @ 4.915 mls/ hr [id number] IV 09/23/24 09:30 Enteral Nutritional Formula 1,000 ml 30ML/HR GT 09/23/24 12:30 09/24/24 00:14 1,000 ML Vancomycin HCl 250 ml @ 250 mls/hr Q8H IV 09/25/24 22:00 09/26/24 05:31 250 MLS/HR Potassium Chloride/Sodium Chloride 1,000 ml @ 50 mls/hr Q20H IV 09/25/24 12:00 Cancel Laboratory Results Laboratory Tests 09/26/24 02:48 09/26/24 08:03 Chemistry Test 09/26/24 02:48 09/26/24 08:03 Calcium Level 10.6 mg/dL (8.7-10.4) H 10.2 mg/dL (8.7-10.4) Urinalysis Test 09/04/24 14:26 09/23/24 09:25 Urine Amorphous Crystals Few /hpf (None Seen) Urine Total Protein 253.7 mg/dL (1-14) H Urine Color Light-yellow (Yellow) Urine Clarity Turbid (Clear) H Urine pH 5.0 (5.0-9.0) Urine Specific [place] 1.011 (1.001-1.035) Urine Protein Negative (Negative) Urine Ketones Negative (Negative) Urine Blood 1+ /uL (Negative) H Urine Nitrite Negative (Negative) Urine Bilirubin Negative (Negative) Urine Urobilinogen Normal mg/dL (Negative) Urine Leukocyte Esterase 1+ /uL (Negative) Urine RBC 33 /hpf (0 - 4) Urine WBC 14 /hpf (0 - 5) Urine Squamous Epithelial Cells Few /hpf (<5) Urine Bacteria None seen /hpf (None Seen) Urine Hyaline Casts Many /lpf (0 - 2) Urine Mucus Few (None Seen) Urine Yeast (Budding) Moderate /hpf (None Seen) Urine Creatinine 24.25 mg/dL (30.0-125.0) L Urine Sodium 109 mmol/L (40-220) Urine Glucose Normal mg/dL (Normal) Blood Gas Results Test 09/26/24 07:23 Arterial Blood pH 7.391 (7.350-7.450) FiO2 % 30.0 Microbiology Microbiology Date/Time Source Procedure Growth Status 09/24/24 10:59 Blood Blood Culture - Preliminary NO GROWTH AFTER 48 HOURS OF INCUBATION. Resulted 09/22/24 19:54 Trachea Gram Stain - Final Resulted 09/22/24 19:54 Respiratory Culture - Preliminary Methicillin Resistant S.aureus Resulted 09/22/24 10:59 Sputum Gram Stain - Final Resulted 09/22/24 10:59 Respiratory Culture - Preliminary Methicillin Resistant S.aureus Resulted 09/11/24 00:00 Voided Urine Urine Culture - Final Complete 09/06/24 13:00 Vaginal Vaginal Culture - Final Enterococcus faecalis Methicillin Resistant S.aureus Complete Labs and/or images reviewed: Labs reviewed by me Assessment/Plan Assessment/Plan NEURO: Acute metabolic encephalopathy likely due to septic shock Patient was sedated and on mechanical ventilation, RASS score -5 CARDIOVASCULAR: NSTEMI type 2 likely due to septic shock Has history of pulmonary emboli in 2016 Cardiology on the board, recommended conservative management Echocardiogram shows mild LVH with mild LV diastolic dysfunction with ejection fraction of 65 Continuing Lasix as needed PULMONARY: Acute Hypoxic respiratory failure, likely due to pneumonia Septic shock likely due to pneumonia Pneumonia due to MRSA Bronchoscopy performed on 09/07 shows lots of secretion on the left main bronchus, bronchial lavage results shows MRSA Bronchoscopy was repeated on 09/08, shows less mucus secretion in compared to previous bronchoscopy Blood culture from 09/02/2024 shows staph hominis sensitive to vancomycin Sputum culture from 09/02/2024 shows MRSA, Streptococcus pneumoniae vancomycin Continuing current management. We will try CPAP again in the later day. Influenza and COVID-19 screening negative Blood culture from 09/11 shows Staphylococcus epidermidis, sensitive to vancomycin Cefepime was given for 5 days from to 09/06, meropenem given for 3 days from 09/03 to 09/05, vancomycin given 14 days from 09/03 to, ceftriaxone 2 g daily was given for 6 days from 09/13 to 09/19, linezolid given for 7 days from 09/11 to 09/17 Continue N-acetylcysteine Chest x-ray shows bilateral infiltration, likely due to congestion, improved in comparison to yesterday ABGs shows respiratory acidosis, respiratory rate increased from 18 to 22 Breathing treatment q.6 hours as needed Patient was respiratory status worsened during the morning, on auscultation there was course breath sounds bilaterally, 80 mg of Lasix given, patient was put on BiPAP 26/04, with the patient condition worsen and the patient was sedated has been put on mechanical ventilation in the setting of VT 450, RR 22, FiO2 85% and peep 5 Bronchoscopy performed due to asymmetric course breath sounds, found copious mucous secretion on the left mid and lower lobe, and right lower lobe Started back vancomycin and levofloxacin on 09/22 Repeat sputum culture on 09/22 shows Staph Aureus GI: Patient has history of multiple surgery of hernia(2015) and bowel obstruction(2019) Abdominal ventral hernias, abdominal CT scan shows multiple ventral wall hernias containing fat and bowel with mild dilatation of proximal jejunum loops with jejunal loops course into the abdominal hernia Possible bowel obstruction, surgery consulted, recommended conservative management, suggested that small bowel series could not perform at the moment due to respiratory status of the patient Transaminitis, likely ischemic secondary to septic shock Patient had 1 bowel movement last night Bowel regimen: Docusate GI ppx: Protonix RENAL: FEDE , likely hemodynamically mediated, improved Nephrology on the board, last HD session on 09/10 Hypernatremia free water deficit calculated, 4 L D5W 125ml/hr Possible rhabdomyolysis, likely due to immobilization Creatinine kinase is raised at 8215, normalized ENDOCRINE: Hypertriglyceridemia, TG 623 09/04, 320 at 09/15 Likely due to propofol, discontinued propofol Continue Atorvastatin 40 mg ID: Sputum cultures from 09/02/2024 shows MRSA, Streptococcus pneumoniae Blood culture from 09/02/2024 shows Staph hominis Results from bronchial washing, from 09/07/2024 shows no growth after 24 hours ID on the board, suggested that the culture results are probably due to contamination and recommended to repeat the culture Blood culture from 09/11 shows Staphylococcus epidermidis, likely due to continue Repeat UA from 08/24 shows UTI picture Patient has spikes of mild fever, repeat Blood culture on 09/23 Possible PID Patient had purulent vaginal discharge Vaginal bacterial culture, shows coagulase-negative Staphylococcus with few growth of possible Enterococcus species Metabolic: Hyperkalemia, improved Hyponatremia, improved Hypokalemia, supplemented Hypomagnesemia, supplemented Hypernatremia, monitoring Multidrug abuser: Per patient's daughter, she is a current user of amphetamine, marijuana and smoking cigarettes Hepatitis B and C serology negative HIV is negative Heme: DVT Doppler ultrasound of lower limb at 08/15 shows, nonocclusive DVT at left popliteal vein Lovenox 100 mg b.i.d. LINES/DRAINS/ACCESS: ETT, intubated on 09/02/2024 IV access Left upper arm PICC line, placed on 09/13 Drips: Levophed 12 Fentanyl 350 Versed 10 DVT ppx: Therapeutic dose of Lovenox DIET: Jevity 30ml/hr CODE STATUS: Full code Continuing current management. Discussed with RN. I will replace potassium with KCl 40 mEq x 1 today. This medical document was created using an electronic medical record system with [employer] direct computerized dictation system. Although this document has been carefully reviewed, there may still be some phonetic and typographical errors. These areas are purely typographical due to imperfections of the software programs, and do not reflect any compromise in the patient's medical care. Plan discussed with: Other (RN) My Orders Orders - RADHA DE LA TORRE MD Procedure Category Date Status Time Chest Portable XY 09/26/24 Resulted 04:00 * Wound Consult CONS 09/25/24 Transmitted Abg W/ Co-Ox RT 09/26/24 Logged 06:00 Complete Blood Count LAB 09/27/24 Verified 05:00 Date of Service: Sep 26, 2024 Billing Provider: RADHA DE LA TORRE MD Common Visit Codes: [id number] INP/OBS CARE(HIGH) RADHA DE LA TORRE MD Sep 26, 2024 12:53
[2024-09-26] MEDS ORDERED: POTASSIUM CHL 20MEQ/100ML 100 ML IV SCH (14:15)
[2024-09-26] MEDS: POTASSIUM CHL 20MEQ/100ML 100 ML IV SCH (14:58)
--- NOTE | 2024-09-26 19:00 | DVHPN2 ---
Progress Note - Dictate Date Seen: Sep 26, 2024 Has the PT tested + for MRSA If YES, has PT been informed?: Yes Medical Necessity Reason Pt with a Central, PICC or Fol: Yes The following are medically ne: Betancourt Catheter Reason for betancourt catheter: Strict I&O Subjective Patient is s/p ventral hernia repair now with small open wounds with min drainage. 09/26 Chest x-ray showed: Lines and tubes in satisfactory position. No significant interval change. vital signs Vital Sign Date Time Temp Pulse Resp B/P (MAP) Pulse Ox O2 Delivery O2 Flow Rate FiO2 09/26/24 18:45 86 22 126/55 (78) 92 09/26/24 18:00 Mechanical Ventilator+ 30 30 09/26/24 16:00 98.8 98.8 Total Intake and Output 09/25/24 09/25/24 09/26/24 15:00 23:00 07:00 Intake Total 1637.254 ml 1377.189 ml 626.690 ml Output Total 650 ml 1650 ml Balance 1637.254 ml 727.189 ml -1023.310 ml medications Current Medications Medications Dose Ordered Sig/[place] Route Start Time Stop Time Status Last Admin Dose Admin Acetaminophen 650 mg Q4HP PRN GT 09/03/24 10:00 09/03/24 10:21 650 MG Pantoprazole Sodium 40 mg DAILY IV 09/04/24 10:00 09/26/24 08:12 40 MG Sodium Chloride 10 ml QSHIFT@10,22 IV 09/13/24 22:00 09/26/24 08:12 10 ML Enoxaparin Sodium 100 mg Q12HR SC 09/19/24 22:00 09/26/24 08:13 100 MG Albuterol 2.5 mg Q6HPRN PRN NEB 09/21/24 19:00 09/23/24 18:57 2.5 MG Ipratropium [place] 0.5 mg Q6HPRN PRN NEB 09/21/24 19:00 09/23/24 18:57 0.5 MG Vancomycin HCl 0 ml @ 0 mls/hr UD IV 09/22/24 10:45 Levofloxacin 50 ml @ 50 mls/hr DAILY@1200,1300 IV 09/22/24 12:00 09/26/24 10:20 50 MLS/HR Midazolam HCl 50 ml @ 1 mls/hr Q24H IV 09/22/24 19:45 09/26/24 11:27 7 MLS/HR Fentanyl Citrate 250 ml @ 2.5 mls/hr Q24H IV 09/22/24 19:45 09/26/24 17:06 30 MLS/HR Norepinephrine Bitartrate 32 mg/ Sodium Chloride 250 ml @ 0.938 mls/ hr Q24H IV 09/22/24 21:15 09/22/24 21:50 0.938 MLS/HR Dexmedetomidine HCl 400 mcg/ Dextrose 100 ml @ 4.915 mls/ hr [id number] IV 09/23/24 09:30 Enteral Nutritional Formula 1,000 ml 30ML/HR GT 09/23/24 12:30 09/24/24 00:14 1,000 ML Vancomycin HCl 250 ml @ 250 mls/hr Q8H IV 09/25/24 22:00 09/26/24 13:31 250 MLS/HR Potassium Chloride/Sodium Chloride 1,000 ml @ 50 mls/hr Q20H IV 09/25/24 12:00 Cancel objective General: Intubated and sedated HEENT: Atraumatic,intubated Neck: No swelling Lungs: Equal air entry and clear to auscultation Cardiovascular: S1 S2 heard no murmur Abdomen: Soft nontender, no organomegaly, nondistended Neuro: sedated, unable to assess Psych: unable to assess laboratory and microbiology Laboratory Tests 09/26/24 08:03 09/26/24 02:48 Test 09/26/24 08:03 Range/Units Serum Glucose 125 H 74-106 mg/dL Assessment/Plan Recommendations: Patient is a 63-year-old female presented to the hospital with: Staphylococcus aureus pneumonia ( MRSA) Streptococcus Pneumoniae pneumonia Septic shock resolving bacteremia : coag neg staphylococccus, possible contamination Acute Respiratory Failure [requiring mechanical ventilation] severe hypoxia Metabolic acidosis FEDE Morbidly obese BMI = 40 PE history Recommendations: Reintubation on 09/22. 09/22 trach culture is growing preliminary staphylococcus aureus Follow sensitivity Continue IV vancomycin [Restarted today] Antibiotics review Cefepime 09/02- 09/06 Meropenem 09/03-09/05 Ceftriaxone 09/07-ongoing last given 09/18 Vancomycin 09/03- 09/11 Linezolid 09/11- ongoing - 09/17 last given Blood culture:co ag neg staph, i think its contaminated. Recent on 09/07 showed no growth Pulmonary on board for vent management full code prognosis guarded crit time 35 mins spent during the encounter. Thank you for consult and for giving an opportunity to take care of this patient. Dietary Evaluation Review Comments: 1. Consider EN/TPN if NPO >7days 2. Continue plan of care Expected Outcomes/Goals: 1. Pt will meet >75% of estimated needs within 2-3 days Plan discussed with: ANGELLA Peng MD Sep 26, 2024 19:00
--- NOTE | 2024-09-26 19:52 | DVHPN ---
DATE: 09/25/2024 PULMONARY FOLLOWUP PRIMARY PHYSICIAN: Dr. Luna. HISTORY: The patient was seen in the afternoon yesterday for some reason. I could not find my dictated note in the computer, I am re-dictating the note. The patient is having significant secretions. The patient is requiring also Diprivan, fentanyl and Versed to keep her comfortable and sedated. The patient was also on low dose Levophed. The patient's urine output had been stable and had not been running any significant fevers. The patient's chart, medical history and medications were reviewed. PHYSICAL EXAMINATION: VITAL SIGNS: Revealed heart rate of 64, respiratory rate of 22, blood pressure 120/45, saturation 97 on 30% FiO2. NECK: Supple. No JVD. CHEST: Examination revealed bilateral basal rales, diminished air entry on both bases. ABDOMEN: Soft, nontender. Bowel sounds normal. COR: S1, S2. No murmurs, no gallops. EXTREMITIES: No edema. LABORATORY WORK: Noted. Chest x-ray had shown small bilateral pleural effusions with prominence of the cardiac silhouette. Support lines and endotracheal tube was in place. Other lab work was noted. WBC 9.7, hemoglobin 10, hematocrit 33, platelet count 226, 65% neutrophils. Blood gases revealed pH 7.39, pCO2 42, pO2 65, bicarbonate 25, saturation 92. The patient was on assist control, tidal volume 450, FiO2 35, rate of 22 and PEEP of 5. Serum chemistries; chloride 109, glucose 122. Rest was noted. The patient had a previous BNP, which was 249 on 09/02/2024. Other lab work noted. Cultures previously had shown MRSA in sputum multiple times. One set of blood culture had shown Staph epidermidis. IMPRESSION: * Acute respiratory failure, having significant secretions. Also, per bedside RN seems to get agitated easily and requiring multiple medications to keep her comfortable. * The patient also has had metabolic encephalopathy, likely secondary to sepsis. * Also has a history of non-ST elevation myocardial infarction and pneumonia. Bronchoscopy was done on 09/07/2024, which had shown mucus plugging. * The patient also had acute kidney injury, which had improved. PLAN: At this time, I would slowly decrease the sedation as long as the patient remains comfortable. Keep RASS -2 to - 3. Titrate oxygen, keep saturations greater than 90. Continue antibiotics. The patient is on Levaquin and vancomycin. The patient is also being followed by ID. The patient was also on low dose Levophed, titrate to keep systolic greater than 90, mean greater than 65. The patient remains on med nebs. The patient is on Lovenox. The patient is on Protonix for GI prophylaxis. Prognosis is guarded. Rest of the medical management per response. Plan discussed with bedside RN. MD EUGENIO Schmitt/CHERYL TID: [id number] RECEIPT: [id number] cc: CHAPINCITO LUNA
--- NOTE | 2024-09-26 21:34 | DVHPN ---
DATE: 09/26/2024 PRIMARY PHYSICIAN: Dr. Perez. SUBJECTIVE: The patient was seen in the evening. The patient sedation has decreased. The patient is still on fentanyl and Diprivan and Versed ____, Levophed requirement has decreased, T max was 99. Secretions remain unchanged. PHYSICAL EXAMINATION: VITAL SIGNS: Reveals T-max of 99.1, heart rate 86, respiratory rate 22 with a blood pressure 126/60, saturations 92%-95% on 30% FiO2. NECK: Supple. CHEST: Reveals diminished air entry at both bases. Bibasilar rales. ABDOMEN: Soft, distended. Bowel sounds present, no organomegaly, no tenderness, guarding, rigidity or rebound. EXTREMITIES: 1-2+ pedal edema. LABORATORY DATA: Lab work, CBC, hematocrit 31, rest was noted. Blood gases, pH 7.39, pCO2 41, pO2 64 on assist control, tidal volume 450, rate of 22, PEEP of 5, 30% FiO2. Serum chemistries; potassium 3.2, glucose 125. Rest was noted. Other lab work were all reviewed. No changes in culture. Chest x-ray revealed no significant change from yesterday. Multifocal airspace disease with possible small pleural effusions. Tubes and lines are in place. IMPRESSION: Acute respiratory failure, possible pneumonia and sepsis. History of non-Q-wave CT, fluid overload, metabolic encephalopathy. PLAN: Continue current management. If the secretions remain high, we will consider bronchoscopy. Continue antibiotics. Continue DVT and GI prophylaxis. The patient remains on vancomycin and Levaquin. ID, cardiac, and renal followup. Dr. Luis will resume pulmonary care in the morning. Critical time 36 minutes. Estiven Brown MD /NATASHA/MATTEO TID: [id number] RECEIPT: [id number] cc: Annetta Perez
--- NOTE | 2024-09-26 22:15 | DVHPN2 ---
Progress Note - Dictate Date Seen: Sep 26, 2024 Has the PT tested + for MRSA If YES, has PT been informed?: Yes Medical Necessity Reason Pt with a Central, PICC or Fol: Yes The following are medically ne: Betancourt Catheter Reason for betancourt catheter: Strict I&O Subjective Patient was seen and evaluated in follow up in the ICU. Patient is intubated and sedated on a ventilator. 30% FiO2. Patient is receiving vasopressors for hemodynamic support. TFs have been held at this time. Wound dressings are C/D/I, has minimal drainage. K 3.2, CL 110. vital signs Vital Sign Date Time Temp Pulse Resp B/P (MAP) Pulse Ox O2 Delivery O2 Flow Rate FiO2 09/26/24 12:00 98.4 68 22 138/54 (82) 99 98.4 09/26/24 12:00 Mechanical Ventilator+ 30 30 Total Intake and Output 09/25/24 09/25/24 09/26/24 15:00 23:00 07:00 Intake Total 1637.254 ml 1377.189 ml 626.690 ml Output Total 650 ml 1650 ml Balance 1637.254 ml 727.189 ml -1023.310 ml medications Current Medications Medications Dose Ordered Sig/[place] Route Start Time Stop Time Status Last Admin Dose Admin Acetaminophen 650 mg Q4HP PRN GT 09/03/24 10:00 09/03/24 10:21 650 MG Pantoprazole Sodium 40 mg DAILY IV 09/04/24 10:00 09/26/24 08:12 40 MG Sodium Chloride 10 ml QSHIFT@ IV 09/13/24 22:00 09/26/24 08:12 10 ML Enoxaparin Sodium 100 mg Q12HR SC 09/19/24 22:00 09/26/24 08:13 100 MG Albuterol 2.5 mg Q6HPRN PRN NEB 09/21/24 19:00 09/23/24 18:57 2.5 MG Ipratropium [place] 0.5 mg Q6HPRN PRN NEB 09/21/24 19:00 09/23/24 18:57 0.5 MG Vancomycin HCl 0 ml @ 0 mls/hr UD IV 09/22/24 10:45 Levofloxacin 50 ml @ 50 mls/hr DAILY@1200,1300 IV 09/22/24 12:00 09/26/24 10:20 50 MLS/HR Midazolam HCl 50 ml @ 1 mls/hr Q24H IV 09/22/24 19:45 09/26/24 11:27 7 MLS/HR Fentanyl Citrate 250 ml @ 2.5 mls/hr Q24H IV 09/22/24 19:45 09/26/24 09:20 30 MLS/HR Norepinephrine Bitartrate 32 mg/ Sodium Chloride 250 ml @ 0.938 mls/ hr Q24H IV 09/22/24 21:15 09/22/24 21:50 0.938 MLS/HR Dexmedetomidine HCl 400 mcg/ Dextrose 100 ml @ 4.915 mls/ hr [id number] IV 09/23/24 09:30 Enteral Nutritional Formula 1,000 ml 30ML/HR GT 09/23/24 12:30 09/24/24 00:14 1,000 ML Vancomycin HCl 250 ml @ 250 mls/hr Q8H IV 09/25/24 22:00 09/26/24 05:31 250 MLS/HR Potassium Chloride/Sodium Chloride 1,000 ml @ 50 mls/hr Q20H IV 09/25/24 12:00 Cancel objective GENERAL: Intubated on ventilator. Morbidly obese. LUNGS: Decreased breath sounds. CARDIOVASCULAR: Heart sounds are good. ABDOMEN: Soft. Morbid pannus limited physical palpation. SKIN: Multiple scars to abdomen. laboratory and microbiology Laboratory Tests 09/26/24 08:03 09/26/24 02:48 Test 09/26/24 08:03 Range/Units Serum Glucose 125 H 74-106 mg/dL Problem List Septic shock. Acute on chronic respiratory failure. NSTEMI type II secondary to above. Rule out structural heart disease. Prolonged QT interval. Morbid obesity, Class 3. Assessment/Plan Continued all current supportive medical care. DVT and GI prophylactics. Diuretics with Lasix. Nebulized breathing treatments. Vasopressors for hemodynamic support. Additional plan as per the hospital course. Critical care time of 45 minutes provided to include time spent evaluation of patient at bedside, when appropriate patient/family education for diagnosis, treatment plan, review of pertinent medical information and discussion of care with specialty providers and PCP. Mechanical ventilator parameters, treatment and adjustments have personally been reviewed by me and treatment plan by integrated marketing manager has also been reviewed. Dietary Evaluation Review Comments: 1. Consider EN/TPN if NPO >7days 2. Continue plan of care Expected Outcomes/Goals: 1. Pt will meet >75% of estimated needs within 2-3 days Plan discussed with: Other RELL STEWART MD Sep 26, 2024 13:25
[2024-09-27] VITALS (111 sets, daily range): BP systolic 77–152; BP diastolic 33–79; PULSE 69–106; RESP 13–28; TEMP 98.4–99.6; O2SAT 93–100
[2024-09-27 03:52] LABS: Basophils # (auto) 0.1 10 ^3/uL (0-0.2); Eosinophils # (auto) 0.6 10 ^3/uL (0-0.8); Eosinophils % (auto) 10.2 % (0.0-7.0); Hematocrit 31.1 % (36.0-46.0); Hemoglobin 10.3 g/dL (12.2-16.2); Lymphocytes # (auto) 1.5 10 ^3/uL (0.4-5.4); Lymphocytes % (auto) 25.4 % (10.0-50.0); Mean Corpuscular Hemoglobin 29.5 pg (28.0-32.0); Mean Corpuscular Hgb Conc. 33.2 g/dL (32.0-36.0); Mean Corpuscular Volume 88.8 fL (80.0-100.0); Monocytes # (auto) 0.8 10 ^3/uL (0-1.3); Monocytes % (auto) 13.3 % (0.0-12.0); Neutrophils # (auto) 2.9 10 ^3/uL (1.6-8.6); Neutrophils % (auto) 50.1 % (37.0-80.0); Nucleated Red Blood Cells % 0.1 %; Platelet Count (auto) 259 10^3/uL (140-450); Red Cell Distribution Width 13.7 % (11.8-14.3); White Blood Cell 5.8 10^3/uL (4.4-10.8)
[2024-09-27 07:13] LABS: Base Excess -0.7 mmol/L (-2.0-3.0)
[2024-09-27 08:20] LABS: Alanine Aminotransferase 20 U/L (7-40); Alkaline Phosphatase 105 U/L (46-116); Anion Gap 9 (5-15); Aspartate Aminotransferase 21 U/L (13-40); BUN/Creatinine Ratio 11.1 (10.0-20.0); Carbon Dioxide 25 mmol/L (20-31); Glucose 98 mg/dL (74-106); Potassium 3.6 mmol/L (3.5-5.1); Sodium 144 mmol/L (136-145)
[2024-09-27 08:21] LABS: Bilirubin, Total 0.3 mg/dL (0.2-1.0); Total Protein 5.8 g/dL (5.7-8.2)
[2024-09-27 08:25] LABS: Albumin 3.1 g/dL (3.2-4.8); Blood Urea Nitrogen 6 mg/dL (9-23); Calcium 10.7 mg/dL (8.7-10.4); Chloride 110 mmol/L (98-107)
[2024-09-27] MEDS: MAGNESIUM SULFATE 1GM/100ML 100 ML IV SCH (09:56)
[2024-09-27] MEDS: VANCOMYCIN 1GM/250ML KIT 250 ML IV SCH (10:09)
[2024-09-27] MEDS: POTASSIUM CHL 20MEQ/100ML 100 ML IV SCH (11:50)
--- NOTE | 2024-09-27 12:25 | DVH ---
CHEST RADIOGRAPH Indication: follow up Technique: Single frontal view of the chest was obtained Comparison: XY CHEST PORTABLE on DOS: 09/26/24, XY CHEST XRAY 1 VIEW on DOS: 09/25/24, XY CHEST XRAY 1 VIEW on DOS: 09/24/24, XY CHEST XRAY 1 VIEW on DOS: 09/23/24, XY CHEST PORTABLE on DOS: 09/22/24, X Y CHEST PORTABLE on DOS: 09/26/24 FINDINGS: Lines and Tubes: Endotracheal tube, enteric catheter and left PICC in satisfactory position. Lungs: Multifocal airspace disease. Pleura: No effusion. No pneumothorax. Cardiomediastinal contours: Unremarkable Bones: Unremarkable IMPRESSION: 1. Lines and tubes in satisfactory position. No significant interval change.
--- NOTE | 2024-09-27 14:39 | DVHPNRES ---
Progress Note Date Seen: Sep 27, 2024 Resident Creating Document: NAN AMAYA RESIDENT Has the PT tested + for MRSA If YES, has PT been informed?: Yes Medical Necessity Reason Pt with a Central, PICC or Fol: Yes The following are medically ne: Betancourt Catheter Reason for betancourt catheter: Strict I&O Subjective Review of Systems This is a 63-year-old female patient with PMHx of PE and multiple abdominal surgeries (hernia and bowel obstruction), polysubstance use, who presented to the ER with a chief complaint of shortness of breath. Patient was subsequently intubated on 09/02. Patient seen and examined at bedside. She is sedated and mechanically ventilated. Urine output is 1000 mL during the night, 200 mL during the day. Magnesium 1.3, 2 g IV administered. Objective vital signs Vital Sign Date Time Temp Pulse Resp B/P (MAP) Pulse Ox O2 Delivery O2 Flow Rate FiO2 09/27/24 14:16 88 22 140/68 (92) 98 09/27/24 14:00 Mechanical Ventilator+ 30 30 09/27/24 12:00 99.1 99.1 Total Intake and Output 09/26/24 09/26/24 09/27/24 14:59 22:59 06:59 Intake Total 635.25 ml 436.628 ml 156.566 ml Output Total 1875 ml 1075 ml Balance 635.25 ml -1438.372 ml -918.434 ml medications Current Medications Medications Dose Ordered Sig/Acacia Route Start Time Stop Time Status Last Admin Dose Admin Acetaminophen 650 mg Q4HP PRN GT 09/03/24 10:00 09/03/24 10:21 650 MG Pantoprazole Sodium 40 mg DAILY IV 09/04/24 10:00 09/27/24 09:16 40 MG Sodium Chloride 10 ml QSHIFT@10,22 IV 09/13/24 22:00 09/27/24 09:16 10 ML Enoxaparin Sodium 100 mg Q12HR SC 09/19/24 22:00 09/27/24 09:17 100 MG Albuterol 2.5 mg Q6HPRN PRN NEB 09/21/24 19:00 09/26/24 19:25 2.5 MG Ipratropium [place] 0.5 mg Q6HPRN PRN NEB 09/21/24 19:00 09/26/24 19:25 0.5 MG Vancomycin HCl 0 ml @ 0 mls/hr UD IV 09/22/24 10:45 Levofloxacin 50 ml @ 50 mls/hr DAILY@1200,1300 IV 09/22/24 12:00 09/27/24 14:32 50 MLS/HR Midazolam HCl 50 ml @ 1 mls/hr Q24H IV 09/22/24 19:45 09/26/24 19:19 4 MLS/HR Fentanyl Citrate 250 ml @ 2.5 mls/hr Q24H IV 09/22/24 19:45 09/27/24 01:56 20 MLS/HR Norepinephrine Bitartrate 32 mg/ Sodium Chloride 250 ml @ 0.938 mls/ hr Q24H IV 09/22/24 21:15 09/22/24 21:50 0.938 MLS/HR Dexmedetomidine HCl 400 mcg/ Dextrose 100 ml @ 4.915 mls/ hr [id number] IV 09/23/24 09:30 Enteral Nutritional Formula 1,000 ml 30ML/HR GT 09/23/24 12:30 09/24/24 00:14 1,000 ML Potassium Chloride/Sodium Chloride 1,000 ml @ 50 mls/hr Q20H IV 09/25/24 12:00 Cancel Vancomycin HCl 250 ml @ 250 mls/hr Q10H IV 09/27/24 10:00 09/27/24 10:09 250 MLS/HR Examination Obese female patient lying in bed, RASS -5 General: Morbidly obese, afebrile, palor, mucosae are moist Cardiovascular: Regular S1 and S2. No murmurs, gallops or rubs. No JVD elevation. No pedal edema Respiratory: Normal B/L air entry on room air. Clear lung sounds on auscultation Abdomen: Soft, nontender, nondistended, normoactive bowel sounds, no rebound tenderness, no organomegaly, no masses Genitourinary: Deferred MSK/skin: Bilateral pitting edema in lower extremities. Neurological: No motor, no sensitive deficits, normal speech. Pupils are isocoric and reactive. laboratory and microbiology Laboratory Tests 09/27/24 03:31 Test 09/27/24 03:31 Range/Units Serum Glucose 98 74-106 mg/dL Microbiology Date/Time Source Procedure Growth Status 09/26/24 13:00 Abdomen Gram Stain Pending Resulted 09/26/24 13:00 Abdomen Wound Culture - Preliminary Resulted 09/24/24 10:59 Blood Blood Culture - Preliminary NO GROWTH AFTER 72 HOURS OF INCUBATION. Resulted 09/22/24 10:59 Sputum Gram Stain - Final Complete 09/22/24 10:59 Respiratory Culture - Final Methicillin Resistant S.aureus Presumptive Juju albicans Complete 09/11/24 00:00 Voided Urine Urine Culture - Final Complete 09/06/24 13:00 Vaginal Vaginal Culture - Final Enterococcus faecalis Methicillin Resistant S.aureus Complete Labs and/or images reviewed: Labs reviewed by me, Image(s) reviewed by me Problem List/Assessment/Plan Problem List/Assessment/Plan NEUROLOGY Acute metabolic encephalopathy likely due to septic shock - patient is sedated and mechanically ventilated, RASS -5 CARDIOVASCULAR Septic shock NSTEMI likely type 2 secondary to septic shock Probable right ventricular failure - cardiology recommended conservative management - echocardiogram shows dyskinesis of IVC, dilated RV and dilated RA. RV failure. Mild LVH and mild LV diastolic dysfunction with EF 65 % - blood culture 09/02 showed Staph hominis sensitive to vancomycin - repeat blood culture 09/11 showed Staphylococcus epidermidis sensitive to Cipro, clinda, linezolid, vancomycin - repeat blood culture 09/24 shows no growth - started furosemide 40 mg IV daily starting 09/27 RESPIRATORY Acute hypoxic respiratory failure secondary to probable community-acquired pneumonia due to MRSA and S pneumo - patient was intubated and mechanically ventilated starting 09/02 - bronchoscopy completed 09/07, results showed MRSA positive - repeat bronchoscopy 09/08, showed comparatively lesser secretions - sputum culture 09/02 showed MRSA, strep pneumo - bronchial wash specimen collected 09/07 showed MRSA - repeat respiratory culture 09/22 showed MRSA and presumtive Juju albicans - received cefepime from 09/02 to 09/06 - received meropenem 11/03 to 09/05, - received vancomycin from 09/03 to 09/11 - received ceftriaxone 2 g daily from 09/13 to 09/19 - received linezolid from 09/11 to 09/17 - continue mechanical ventilation with a FiO2 30, tidal volume 450, peep 5, peak pressure 23 - continue albuterol and ipratropium q.6 hour p.r.n. - restarted vancomycin 09/27 and continue levofloxacin - started Diflucan daily starting 09/27 - CPAP trial for a.m. GI History of multiple surgeries secondary to hernia and bowel obstruction Multiple ventral wall hernias Possible bowel obstruction Transaminitis secondary to septic shock Rhabdomyolysis likely secondary to immobilization Surgeon consulted-recommended conservative management, small varices could not be performed at this moment due to respiratory status of the patient Continue IV pantoprazole 40 mg daily Continue docusate /KIDNEY FEDE, likely secondary to VMN - resolved Probable pelvic inflammatory disease Hyponatremia-resolved Hypomagnesemia - creatinine downtrending - creatinine kinase downtrended from 8215 to 77 - nephrology consulted, last hemodialysis session was performed on 09/10 - urine bacterial culture 09/02 showed less than [id number] CFU of coagulase-negative Staphylococcus - vaginal culture 09/06 showed coagulase-negative Staphylococcus, Enterococcus faecalis, MRSA sensitive to daptomycin, linezolid, vancomycin, TMP SMX - patient had purulent vaginal discharge - 2 g magnesium administered 09/27 ENDO Hypertriglyceridemia, TG 623 09/04, 320 at 09/15 Likely due to propofol, discontinued propofol - Continue Atorvastatin 40 mg ID Polysubstance use - Infectious disease consulted, continue management as above - Per patient's daughter, patient uses amphetamine, marijuana, smokes cigarettes - HIV testing negative - Hepatitis panel negative Hematology Lower extremity DVT - Ultrasound Doppler of lower extremities 08/15 shows nonocclusive DVT of the left popliteal vein - Continue Lovenox 100 mg b.i.d. LINES ETT, intubated on 09/02/2024 IV access Left upper arm PICC line, placed on 09/13 Drips: Levophed 2 Fentanyl 25 Nutrition Jevity 30 mL/hour Goals of care/advance care planning; FULL CODE; discussed on for 24 minutes. PUD prophylaxis; therapeutic Lovenox DVT prophylaxis; pantoprazole 40 mg IV daily critical care time including review of chart and discussion with nursing excluding procedures was 51 mins Plan discussed with Dr. Pinon Plan discussed with: Patient My Orders My Orders Orders - NAN AMAYA RESIDENT Procedure Category Date Status Time Chest Xray 1 View XY 09/27/24 Resulted 08:36 Dietary Evaluation Review Comments: 1. Consider EN/TPN if NPO >7days 2. Continue plan of care Expected Outcomes/Goals: 1. Pt will meet >75% of estimated needs within 2-3 days Date of Service: Sep 27, 2024 Billing Provider: DANE PINON MD Common Visit Codes: 10904-[id number] 30-74 MIN NAN AMAYA Sep 27, 2024 14:39 DANE PINON MD Sep 28, 2024 15:51
[2024-09-27] MEDS: FUROSEMIDE 40 MG/4 ML VIAL IV ONE (16:06)
[2024-09-27] MEDS: FLUCONAZOLE 200MG/100ML 100 ML IV ONE (16:06)
--- NOTE | 2024-09-27 18:40 | DVHPN2 ---
Progress Note - Dictate Date Seen: Sep 27, 2024 Has the PT tested + for MRSA If YES, has PT been informed?: Yes Medical Necessity Reason Pt with a Central, PICC or Fol: Yes The following are medically ne: Betancourt Catheter Reason for betancourt catheter: Strict I&O Subjective Patient is sedated and mechanically ventilated. Magnesium 1.3, 2 g IV administered. 09/26 Chest x-ray showed: Lines and tubes in satisfactory position. No significant interval change. vital signs Vital Sign Date Time Temp Pulse Resp B/P (MAP) Pulse Ox O2 Delivery O2 Flow Rate FiO2 09/27/24 18:22 98 23 133/58 (83) 97 30 09/27/24 18:00 Mechanical Ventilator+ 09/27/24 16:01 99.2 99.2 Total Intake and Output 09/26/24 09/26/24 09/27/24 15:00 23:00 07:00 Intake Total 735.25 ml 320.316 ml 138.066 ml Output Total 1875 ml 1075 ml Balance 735.25 ml -1554.684 ml -936.934 ml medications Current Medications Medications Dose Ordered Sig/Acacia Route Start Time Stop Time Status Last Admin Dose Admin Acetaminophen 650 mg Q4HP PRN GT 09/03/24 10:00 09/03/24 10:21 650 MG Pantoprazole Sodium 40 mg DAILY IV 09/04/24 10:00 09/27/24 09:16 40 MG Sodium Chloride 10 ml QSHIFT@10,22 IV 09/13/24 22:00 09/27/24 09:16 10 ML Enoxaparin Sodium 100 mg Q12HR SC 09/19/24 22:00 09/27/24 09:17 100 MG Albuterol 2.5 mg Q6HPRN PRN NEB 09/21/24 19:00 09/26/24 19:25 2.5 MG Ipratropium [place] 0.5 mg Q6HPRN PRN NEB 09/21/24 19:00 09/26/24 19:25 0.5 MG Vancomycin HCl 0 ml @ 0 mls/hr UD IV 09/22/24 10:45 Levofloxacin 50 ml @ 50 mls/hr DAILY@1200,1300 IV 09/22/24 12:00 09/27/24 14:32 50 MLS/HR Midazolam HCl 50 ml @ 1 mls/hr Q24H IV 09/22/24 19:45 09/26/24 19:19 4 MLS/HR Fentanyl Citrate 250 ml @ 2.5 mls/hr Q24H IV 09/22/24 19:45 09/27/24 01:56 20 MLS/HR Norepinephrine Bitartrate 32 mg/ Sodium Chloride 250 ml @ 0.938 mls/ hr Q24H IV 09/22/24 21:15 09/22/24 21:50 0.938 MLS/HR Dexmedetomidine HCl 400 mcg/ Dextrose 100 ml @ 4.915 mls/ hr [id number] IV 09/23/24 09:30 Enteral Nutritional Formula 1,000 ml 30ML/HR GT 09/23/24 12:30 09/24/24 00:14 1,000 ML Potassium Chloride/Sodium Chloride 1,000 ml @ 50 mls/hr Q20H IV 09/25/24 12:00 Cancel Vancomycin HCl 250 ml @ 250 mls/hr Q10H IV 09/27/24 10:00 09/27/24 10:09 250 MLS/HR Fluconazole 100 ml @ 100 mls/hr DAILY IV 09/28/24 10:00 Furosemide 40 mg DAILY IV 09/28/24 10:00 objective General: Intubated and sedated HEENT: Atraumatic,intubated Neck: No swelling Lungs: Equal air entry and clear to auscultation Cardiovascular: S1 S2 heard no murmur Abdomen: Soft nontender, no organomegaly, nondistended Neuro: sedated, unable to assess Psych: unable to assess laboratory and microbiology Laboratory Tests 09/27/24 03:31 Test 09/27/24 03:31 Range/Units Serum Glucose 98 74-106 mg/dL Assessment/Plan Recommendations: Patient is a 63-year-old female presented to the hospital with: failed extubation, reintubated Staphylococcus aureus pneumonia ( MRSA) Streptococcus Pneumoniae pneumonia Septic shock resolving bacteremia : coag neg staphylococccus, possible contamination Acute Respiratory Failure [requiring mechanical ventilation] severe hypoxia Metabolic acidosis FEDE Morbidly obese BMI = 40 PE history Recommendations: Reintubation on 09/22. family is against trach, plan for Cpap 09/22 respiratory culture is growing preliminary staphylococcus aureus Follow sensitivity Continue IV vancomycin [Restarted ] I feel she is already received prolonged course of antibiotics for MRSA pneumonia. 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 Patient had difficult extubation in the past, 4 years ago when she was intubated for surgery as per records. 09/26, Wound culture preliminary: Coagulase Negative Staphylococcus Antibiotics review Cefepime 09/02- 09/06 Meropenem 09/03-09/05 Ceftriaxone 09/07-ongoing last given 09/18 Vancomycin 09/03- 09/11 Linezolid 09/11- ongoing - 09/17 last given Blood culture:co ag neg staph, i think its contaminated. Recent on 09/07 showed no growth Pulmonary on board for vent management full code prognosis guarded crit time 35 mins spent during the encounter. Thank you for consult and for giving an opportunity to take care of this patient. Dietary Evaluation Review Comments: 1. Consider EN/TPN if NPO >7days 2. Continue plan of care Expected Outcomes/Goals: 1. Pt will meet >75% of estimated needs within 2-3 days Plan discussed with: Other ANGELLA REYES MD Sep 27, 2024 18:40
--- NOTE | 2024-09-27 21:31 | DVHPN2 ---
Progress Note - Dictate Date Seen: Sep 27, 2024 Has the PT tested + for MRSA If YES, has PT been informed?: Yes Medical Necessity Reason Pt with a Central, PICC or Fol: Yes The following are medically ne: Betancourt Catheter Reason for betancourt catheter: Strict I&O Subjective Patient was seen and evaluated in follow up in the ICU. Patient is intubated and sedated on a ventilator. 30% FiO2. Urine output is 1000 mL during the night, 200 mL during the day. Electrolytes are being replaced as needed. She is diuresing with Lasix. Chest x-ray shows multifocal airspace disease. vital signs Vital Sign Date Time Temp Pulse Resp B/P (MAP) Pulse Ox O2 Delivery O2 Flow Rate FiO2 09/27/24 20:11 93 22 123/57 (79) 97 30 09/27/24 18:00 Mechanical Ventilator+ 09/27/24 16:01 99.2 99.2 Total Intake and Output 09/26/24 09/26/24 09/27/24 15:00 23:00 07:00 Intake Total 735.25 ml 320.316 ml 138.066 ml Output Total 1875 ml 1075 ml Balance 735.25 ml -1554.684 ml -936.934 ml medications Current Medications Medications Dose Ordered Sig/Acacia Route Start Time Stop Time Status Last Admin Dose Admin Acetaminophen 650 mg Q4HP PRN GT 09/03/24 10:00 09/03/24 10:21 650 MG Pantoprazole Sodium 40 mg DAILY IV 09/04/24 10:00 09/27/24 09:16 40 MG Sodium Chloride 10 ml QSHIFT@ IV 09/13/24 22:00 09/27/24 09:16 10 ML Enoxaparin Sodium 100 mg Q12HR SC 09/19/24 22:00 09/27/24 09:17 100 MG Albuterol 2.5 mg Q6HPRN PRN NEB 09/21/24 19:00 09/26/24 19:25 2.5 MG Ipratropium [place] 0.5 mg Q6HPRN PRN NEB 09/21/24 19:00 09/26/24 19:25 0.5 MG Vancomycin HCl 0 ml @ 0 mls/hr UD IV 09/22/24 10:45 Levofloxacin 50 ml @ 50 mls/hr DAILY@1200,1300 IV 09/22/24 12:00 09/27/24 14:32 50 MLS/HR Midazolam HCl 50 ml @ 1 mls/hr Q24H IV 09/22/24 19:45 09/26/24 19:19 4 MLS/HR Fentanyl Citrate 250 ml @ 2.5 mls/hr Q24H IV 09/22/24 19:45 09/27/24 01:56 20 MLS/HR Norepinephrine Bitartrate 32 mg/ Sodium Chloride 250 ml @ 0.938 mls/ hr Q24H IV 09/22/24 21:15 09/22/24 21:50 0.938 MLS/HR Dexmedetomidine HCl 400 mcg/ Dextrose 100 ml @ 4.915 mls/ hr [id number] IV 09/23/24 09:30 09/27/24 19:34 4.915 MLS/HR Enteral Nutritional Formula 1,000 ml 30ML/HR GT 09/23/24 12:30 09/24/24 00:14 1,000 ML Potassium Chloride/Sodium Chloride 1,000 ml @ 50 mls/hr Q20H IV 09/25/24 12:00 Cancel Vancomycin HCl 250 ml @ 250 mls/hr Q10H IV 09/27/24 10:00 09/27/24 10:09 250 MLS/HR Fluconazole 100 ml @ 100 mls/hr DAILY IV 09/28/24 10:00 Furosemide 40 mg DAILY IV 09/28/24 10:00 objective GENERAL: Intubated on ventilator. Morbidly obese. LUNGS: Decreased breath sounds. CARDIOVASCULAR: Heart sounds are good. ABDOMEN: Soft. Morbid pannus limited physical palpation. SKIN: Multiple scars to abdomen. laboratory and microbiology Test 09/27/24 03:31 Range/Units Serum Glucose 98 74-106 mg/dL Problem List Septic shock. Acute on chronic respiratory failure. NSTEMI type II secondary to above. Rule out structural heart disease. Prolonged QT interval. Morbid obesity, Class 3. Assessment/Plan Continued all current supportive medical care. DVT and GI prophylactics. Diuretics with Lasix. Nebulized breathing treatments. Vasopressors for hemodynamic support. Additional plan as per the hospital course. Critical care time of 45 minutes provided to include time spent evaluation of patient at bedside, when appropriate patient/family education for diagnosis, tr eatment plan, review of pertinent medical information and discussion of care with specialty providers and PCP. Mechanical ventilator parameters, treatment and adjustments have personally been reviewed by me and treatment plan by fire apparatus engineer has also been reviewed. Dietary Evaluation Review Comments: 1. Consider EN/TPN if NPO >7days 2. Continue plan of care Expected Outcomes/Goals: 1. Pt will meet >75% of estimated needs within 2-3 days Plan discussed with: Other RELL STEWART MD Sep 27, 2024 21:31
[2024-09-28] VITALS (110 sets, daily range): BP systolic 79–208; BP diastolic 34–107; PULSE 57–108; RESP 12–38; TEMP 98–99.3; O2SAT 88–100
--- NOTE | 2024-09-28 00:01 | DVHINCON2 ---
Family History: Diabetes mellitus G8 BROTHER FH: hypertension G8 FATHER Allergies: Coded Allergies: Hydrocodone (Verified Allergy, Mild, 09/02/24) Itchy Home Meds Active Scripts Tamsulosin Hcl (Flomax) 0.4 Mg Cap, 1 CAP PO HS, #10 CAP 11 Refills Prov:RADHA DE LA TORRE MD 02/25/24 Levofloxacin Hemihydrate (LEVAQUIN 500 MG) 500 Mg Tab, 1 TAB PO DAILY, #7 TAB Prov:RADHA DE LA TORRE MD 02/25/24 Current Medications Current Medications Medications (Trade) Dose Ordered Sig/[place]acia Route PRN Reason Start Time Stop Time Status Last Admin Magnesium Sulfate/ Dextrose 100 ml @ 100 mls/hr Q1HR IV 09/27/24 10:00 09/27/24 11:59 DC 09/27/24 10:46 Potassium Chloride 100 ml @ 50 mls/hr Q2H IV 09/27/24 09:15 09/27/24 13:14 DC 09/27/24 13:05 Vancomycin HCl 250 ml @ 250 mls/hr Q10H IV 09/27/24 10:00 09/27/24 10:09 Fluconazole 100 ml @ 100 mls/hr DAILY IV 09/28/24 10:00 Furosemide (Lasix Injection) 40 mg DAILY IV 09/28/24 10:00 Vital Signs Vital Signs Date Time Temp Pulse Resp B/P (MAP) Pulse Ox O2 Delivery O2 Flow Rate FiO2 09/27/24 21:55 76 22 86/41 (56) 96 30 09/27/24 18:00 Mechanical Ventilator+ 09/27/24 16:01 99.2 99.2 Labs/Diagnostic Data Labs Test 09/27/24 07:05 09/27/24 03:31 09/26/24 20:53 09/25/24 03:01 Range/Units Blood Gas Specimen Type Arterial Blood Gas Sample Site Right radial Blood Gas Patient Temperature 37.0 Arterial Blood Date Drawn [id number] Arterial Blood pH 7.420 7.350-7.450 Arterial Blood Partial Pressure CO2 36.7 32.0-45.0 mmHg Arterial Blood Partial Pressure O2 69.9 L 83.0-108.0 mmHg Arterial Blood HCO3 23.3 21.0-28.0 mmol/L Arterial Blood Oxygen Saturation 93.7 L 94.0-98.0 % Arterial Blood Base Excess -0.7 -2.0-3.0 mmol/L Arterial Blood Oxyhemoglobin 92.2 L 94.0-98.0 % Arterial Blood Carboxyhemoglobin 1.3 0.5-1.5 % Arterial Blood Methemoglobin 0.3 0.0-1.5 % Cy Test Modified Blood Gas Total Hemoglobin 15.30 12.0-16.0 g/dL Blood Gas Set Respiration Rate 22.0 Blood Gas Modality Vent - ac FiO2 % 30.0 Blood Gas Tidal Volume 450.0 Blood Gas PEEP or CPAP 5.0 White Blood Count 5.8 4.4-10.8 10^3/uL Red Blood Count 3.50 L 4.0-5.20 10^6/uL Hemoglobin 10.3 L 12.2-16.2 g/dL Hematocrit 31.1 L 36.0-46.0 % Mean Corpuscular Volume 88.8 80.0-100.0 fL Mean Corpuscular Hemoglobin 29.5 28.0-32.0 pg Mean Corpuscular Hemoglobin Concent 33.2 32.0-36.0 g/dL Red Cell Distribution Width 13.7 11.8-14.3 % Platelet Count 259 140-450 10^3/uL Mean Platelet Volume 8.9 6.9-10.8 fL Neutrophils (%) (Auto) 50.1 37.0-80.0 % Lymphocytes (%) (Auto) 25.4 10.0-50.0 % Monocytes (%) (Auto) 13.3 H 0.0-12.0 % Eosinophils (%) (Auto) 10.2 H 0.0-7.0 % Basophils (%) (Auto) 1.0 0.0-2.0 % Neutrophils # (Auto) 2.9 1.6-8.6 10 ^3/uL Lymphocytes # (Auto) 1.5 0.4-5.4 10 ^3/uL Monocytes # (Auto) 0.8 0-1.3 10 ^3/uL Eosinophils # (Auto) 0.6 0-0.8 10 ^3/uL Basophils # (Auto) 0.1 0-0.2 10 ^3/uL Nucleated Red Blood Cells 0.1 % Sodium Level 144 136-145 mmol/L Potassium Level 3.6 3.5-5.1 mmol/L Chloride Level 110 H 98-107 mmol/L Carbon Dioxide Level 25 20-31 mmol/L Anion Gap 9 5-15 Blood Urea Nitrogen 6 L 9-23 mg/dL Creatinine 0.54 L 0.550-1.02 mg/dL Glomerular Filtration Rate Calc 105 >90 mL/min BUN/Creatinine Ratio 11.1 10.0-20.0 Serum Glucose 98 74-106 mg/dL Calcium Level 10.7 H 8.7-10.4 mg/dL Magnesium Level 1.3 L 1.6-2.6 mg/dL Total Bilirubin 0.3 0.2-1.0 mg/dL Aspartate Amino Transferase (AST) 21 13-40 U/L Alanine Aminotransferase (ALT) 20 7-40 U/L Alkaline Phosphatase 105 46-116 U/L Total Protein 5.8 5.7-8.2 g/dL Albumin 3.1 L 3.2-4.8 g/dL Vancomycin Level Trough 21.2 H 5-10 ug/mL Random Vancomycin Level 19.9 H 5-10 ug/mL Test 09/23/24 09:53 09/23/24 09:25 09/22/24 10:36 09/21/24 09:55 Range/Units Blood Gas Spontaneous Rate 20 Urine Color Light-yellow Yellow Urine Clarity Turbid H Clear Urine pH 5.0 5.0-9.0 Urine Specific [place] 1.011 1.001-1.035 Urine Protein Negative Negative Urine Ketones Negative Negative Urine Blood 1+ H Negative /uL Urine Nitrite Negative Negative Urine Bilirubin Negative Negative Urine Urobilinogen Normal Negative mg/dL Urine Leukocyte Esterase 1+ Negative /uL Urine RBC 33 0 - 4 /hpf Urine WBC 14 0 - 5 /hpf Urine Squamous Epithelial Cells Few <5 /hpf Urine Bacteria None seen None Seen /hpf Urine Hyaline Casts Many 0 - 2 /lpf Urine Mucus Few None Seen Urine Yeast (Budding) Moderate None Seen /hpf Urine Creatinine 24.25 L 30.0-125.0 mg/dL Urine Sodium 109 40-220 mmol/L Urine Glucose Normal Normal mg/dL Blood Gas Liter Flow 70.00 Blood Gas Pressure Support 7 Blood Gas Notified Time [id number] Test 09/21/24 03:09 09/20/24 08:11 09/18/24 16:25 09/18/24 07:59 Range/Units Creatine Kinase 77 34-145 U/L Specimen Drawn By Kadie gis professor Blood Gas Spontaneous Tidal Volume 450 Blood Gas Inspiratory Pressure 16.0 Bl Gas Inspiratory/Expiratory Ratio 1:2.5 Blood Gas Critical Value Read Back Yes Test 09/16/24 06:45 09/16/24 03:28 09/15/24 03:53 09/14/24 03:37 Range/Units Blood Gas Comments Blood Gas Notified Whom bandar enriquez Blood Gas Notified By afia garcia HIV (1&2) Antibody Negative Negative Triglycerides Level 320 H < 150 mg/dL Differential Total Cells Counted 100.0 100 Neutrophils % (Manual) 88 H 37.0-80.0 Band Neutrophils % (Manual) 2 Lymphocytes % (Manual) 2 L 10.0-50.0 Monocytes % (Manual) 4 0-12 Eosinophils % (Manual) 3 0-7 Basophils % (Manual) 0 0.0-2.0 Metamyelocytes % (manual) 0 Myelocytes % (Manual) 1 Promyelocytes % (Manual) 0 Blast Cells % (Manual) 0 Reactive Lymphocytes 0 Platelet Estimate Adequate Test 09/13/24 03:00 09/12/24 03:05 09/08/24 03:23 09/07/24 11:53 Range/Units Phosphorus Level 10.8 H 2.4-5.1 mg/dL Erythrocyte Sedimentation Rate 66 H 0-20 mm/hr C-Reactive Protein High Sensitivity 13.19 H <1.0 mg/dL Red Blood Cell Morphology Normal POC Glucose 135 H 70-106 mg/dl Test 09/07/24 03:07 09/06/24 03:00 09/05/24 03:20 09/04/24 15:52 Range/Units Large Platelets Few Anisocytosis (manual) Slight Target Cells Few Prothrombin Time 10.9 9.3-11.8 sec Prothrombin Time INR 1.03 0.9-1.15 Activated Partial Thromboplast Time 27.0 24.5-34.5 SEC Hepatitis A IgM Antibody Negative Hepatitis B Surface Antigen Negative Negative Hepatitis B Core IgM Antibody Negative Hepatitis C Antibody Negative Negative Uric Acid 9.8 H 3.1-7.8 mg/dL Lactic Acid Level 1.1 0.4-2.0 mmol/L Test 09/04/24 14:26 09/04/24 04:10 09/02/24 19:17 09/02/24 18:49 Range/Units Urine Amorphous Crystals Few None Seen /hpf Urine Total Protein 253.7 H 1-14 mg/dL Smudge Cells 1 /100 WBC Clumped Platelets Few Hemoglobin A1c 5.7 <5.7 % A1C Ammonia 21 11-32 umol/L Lactate Dehydrogenase 436 H 120-246 U/L Cholesterol Level 145 < 200 mg/dL LDL Cholesterol < 100 mg/dL HDL Cholesterol 10 L 40-59 mg/dL Lipase 26 12-53 U/L Thyroid Stimulating Hormone (TSH) 0.83 0.55-4.78 uIU/mL Troponin I High Sensitivity 72 *H </=34 ng/L SARS-CoV-2 Antigen (Rapid) Negative NEGATIVE Test 09/02/24 16:28 09/02/24 15:29 09/02/24 15:13 Range/Units [place] Cells Moderate B-Type Natriuretic Peptide 249.65 0-100 pg/mL Influenza Type A Antigen Negative Negative Influenza Type B Antigen Negative Negative Blood Gas EPAP 5 Blood Gas IPAP 20 Microbiology Date/Time Source Procedure Growth Status 09/26/24 13:00 Abdomen Gram Stain Pending Resulted 09/26/24 13:00 Abdomen Wound Culture - Preliminary Resulted 09/24/24 10:59 Blood Blood Culture - Preliminary NO GROWTH AFTER 72 HOURS OF INCUBATION. Resulted 09/22/24 10:59 Sputum Gram Stain - Final Complete 09/22/24 10:59 Respiratory Culture - Final Methicillin Resistant S.aureus Presumptive Juju albicans Complete 09/11/24 00:00 Voided Urine Urine Culture - Final Complete 09/06/24 13:00 Vaginal Vaginal Culture - Final Enterococcus faecalis Methicillin Resistant S.aureus Complete ROMY TURCIOS MD Sep 28, 2024 00:01
[2024-09-28 04:18] LABS: Basophils # (auto) 0.1 10 ^3/uL (0-0.2); Basophils % (auto) 1.2 % (0.0-2.0); Eosinophils # (auto) 0.7 10 ^3/uL (0-0.8); Eosinophils % (auto) 10.3 % (0.0-7.0); Hematocrit 31.4 % (36.0-46.0); Hemoglobin 10.4 g/dL (12.2-16.2); Lymphocytes # (auto) 1.7 10 ^3/uL (0.4-5.4); Lymphocytes % (auto) 25.3 % (10.0-50.0); Mean Corpuscular Hemoglobin 29.2 pg (28.0-32.0); Mean Corpuscular Hgb Conc. 33.3 g/dL (32.0-36.0); Mean Corpuscular Volume 87.8 fL (80.0-100.0); Monocytes # (auto) 0.9 10 ^3/uL (0-1.3); Monocytes % (auto) 13.6 % (0.0-12.0); Neutrophils # (auto) 3.2 10 ^3/uL (1.6-8.6); Neutrophils % (auto) 49.6 % (37.0-80.0); Nucleated Red Blood Cells % 0.1 %; Platelet Count (auto) 259 10^3/uL (140-450); Red Blood Cells 3.57 10^6/uL (4.0-5.20); Red Cell Distribution Width 14.2 % (11.8-14.3); White Blood Cell 6.5 10^3/uL (4.4-10.8)
[2024-09-28 04:37] LABS: Chloride 106 mmol/L (98-107); Sodium 142 mmol/L (136-145)
[2024-09-28 04:38] LABS: Anion Gap 9 (5-15); Carbon Dioxide 27 mmol/L (20-31)
[2024-09-28 04:43] LABS: BUN/Creatinine Ratio 10.5 (10.0-20.0)
[2024-09-28 04:44] LABS: Blood Urea Nitrogen 8 mg/dL (9-23); Calcium 11.3 mg/dL (8.7-10.4); Glucose 111 mg/dL (74-106); Magnesium 1.5 mg/dL (1.6-2.6); Potassium 3.3 mmol/L (3.5-5.1)
--- NOTE | 2024-09-28 04:51 | DVH ---
CHEST RADIOGRAPH Indication: INTUBATED, FOLLOW UP Technique: Single frontal view of the chest was obtained COMPARISON: XY CHEST XRAY 1 VIEW on DOS: 09/27/24, XY CHEST PORTABLE on DOS: 09/26/24, XY CHEST XRAY 1 VIEW on DOS: 09/25/24, XY CHEST XRAY 1 VIEW on DOS: 09/27/24 FINDINGS: Lines and Tubes: Endotracheal tube, enteric catheter and left PICC in satisfactory position. Lungs: Multifocal airspace disease. Pleura: No effusion. No pneumothorax. Cardiomediastinal contours: Unremarkable Bones: Unremarkable IMPRESSION: 1. Lines and tubes in satisfactory position. No significant interval change.
--- NOTE | 2024-09-28 06:48 | DVHPNRES ---
Progress Note Date Seen: Sep 28, 2024 Resident Creating Document: NAN AMAYA RESIDENT Has the PT tested + for MRSA If YES, has PT been informed?: Yes Medical Necessity Reason Pt with a Central, PICC or Fol: Yes The following are medically ne: Betancourt Catheter Reason for betancourt catheter: Strict I&O Subjective Review of Systems This is a 63-year-old female patient with PMHx of PE in 2015, multiple abdominal surgeries including hernia and bowel obstruction, lasts hernia surgery [place] [address] Anaya, right distal ureteral calculus in February 2024, AKA, rib fractures, chronic nicotine dependence in polysubstance use including methamphetamine and cannabis presented to the ER with a chief complaint of shortness of breaths. She was successfully intubated on 09/02. Per patient's daughter, patient became short of breath and febrile at 102.7 F, and therefore they had to call [facility]. Patient was saturating at 70% and therefore the patient was brought to the ER. She was intubated once before 4 years back after abdominal surgery at [facility] where she experienced difficult extubation. Patient is a nonsmoker for more than 50 years, currently smokes more than 1 pack a day. 09/05 - 2 small granulating wounds on abdomen are suture granulomas, sutures removed by surgeon 09/28 - Patient seen and examined at the bedside. Overnight patient became bradycardic, pulse was 30s, telemetry reviewed rhythm was regular, likely sinus bradycardia, sedation was turned off and the patient's pulse went up to 58 beats per minute which is her baseline. No bowel movements overnight. Patient made around 950 cc of urine. 40 mEq of potassium supplement and 2 g magnesium supplemented. Continue IV vancomycin and levofloxacin. Id on board. CPAP trial ended early as the patient became tachypneic with RR of 46/min. Raised Jevity 1.2 to 40 mL/hour. Objective vital signs Vital Sign Date Time Temp Pulse Resp B/P (MAP) Pulse Ox O2 Delivery O2 Flow Rate FiO2 09/28/24 06:31 69 23 108/46 (66) 93 30 09/28/24 06:00 Mechanical Ventilator+ 09/28/24 04:00 99.1 99.1 Total Intake and Output 09/27/24 09/27/24 09/28/24 15:00 23:00 07:00 Intake Total 658.128 ml 124.575 ml 126.550 ml Output Total 1150 ml 950 ml Balance 658.128 ml -1025.425 ml -823.450 ml medications Current Medications Medications Dose Ordered Sig/Acacia Route Start Time Stop Time Status Last Admin Dose Admin Acetaminophen 650 mg Q4HP PRN GT 09/03/24 10:00 09/03/24 10:21 650 MG Pantoprazole Sodium 40 mg DAILY IV 09/04/24 10:00 09/27/24 09:16 40 MG Sodium Chloride 10 ml QSHIFT@10,22 IV 09/13/24 22:00 09/27/24 22:33 10 ML Enoxaparin Sodium 100 mg Q12HR SC 09/19/24 22:00 09/27/24 22:33 100 MG Albuterol 2.5 mg Q6HPRN PRN NEB 09/21/24 19:00 09/26/24 19:25 2.5 MG Ipratropium [place] 0.5 mg Q6HPRN PRN NEB 09/21/24 19:00 09/26/24 19:25 0.5 MG Vancomycin HCl 0 ml @ 0 mls/hr UD IV 09/22/24 10:45 Levofloxacin 50 ml @ 50 mls/hr DAILY@1200,1300 IV 09/22/24 12:00 09/27/24 14:32 50 MLS/HR Midazolam HCl 50 ml @ 1 mls/hr Q24H IV 09/22/24 19:45 09/26/24 19:19 4 MLS/HR Fentanyl Citrate 250 ml @ 2.5 mls/hr Q24H IV 09/22/24 19:45 09/27/24 01:56 20 MLS/HR Norepinephrine Bitartrate 32 mg/ Sodium Chloride 250 ml @ 0.938 mls/ hr Q24H IV 09/22/24 21:15 09/28/24 00:20 0.938 MLS/HR Dexmedetomidine HCl 400 mcg/ Dextrose 100 ml @ 4.915 mls/ hr [id number] IV 09/23/24 09:30 09/28/24 05:35 4.915 MLS/HR Enteral Nutritional Formula 1,000 ml 30ML/HR GT 09/23/24 12:30 09/24/24 00:14 1,000 ML Potassium Chloride/Sodium Chloride 1,000 ml @ 50 mls/hr Q20H IV 09/25/24 12:00 Cancel Vancomycin HCl 250 ml @ 250 mls/hr Q10H IV 09/27/24 10:00 09/27/24 10:09 250 MLS/HR Fluconazole 100 ml @ 100 mls/hr DAILY IV 09/28/24 10:00 Furosemide 40 mg DAILY IV 09/28/24 10:00 Potassium Chloride 100 ml @ 50 mls/hr Q2H IV 09/28/24 06:45 09/28/24 14:44 Magnesium Sulfate/ Dextrose 100 ml @ 100 mls/hr Q1HR IV 09/28/24 07:00 09/28/24 08:59 Examination Obese female patient lying in bed, in no acute distress General: Morbidly obese, afebrile, palor, mucosae are moist, positive light reflex Cardiovascular: Regular S1 and S2. No murmurs, gallops or rubs. No JVD elevation. Lower and upper extremity nonpitting edema noticed. Respiratory: Equal bilateral air entry, saturating 96% on FiO2 of 30%. Abdomen: Abdomen is soft, hypoactive bowel sounds, multiple ventral hernia seen, right-sided dressing removed, no drainage noticed. Midline scar seen. Genitourinary: Urinary catheter seen draining 950 cc of urine for the past 24 hours MSK/skin: Skin is dry and warm Neurological: Pupils are isocoric and reactive. laboratory and microbiology Laboratory Tests 09/28/24 03:52 Test 09/28/24 03:52 Range/Units Serum Glucose 111 H 74-106 mg/dL Microbiology Date/Time Source Procedure Growth Status 09/26/24 13:00 Abdomen Gram Stain Pending Resulted 09/26/24 13:00 Abdomen Wound Culture - Preliminary Resulted 09/24/24 10:59 Blood Blood Culture - Preliminary NO GROWTH AFTER 72 HOURS OF INCUBATION. Resulted 09/22/24 10:59 Sputum Gram Stain - Final Complete 09/22/24 10:59 Respiratory Culture - Final Methicillin Resistant S.aureus Presumptive Juju albicans Complete 09/11/24 00:00 Voided Urine Urine Culture - Final Complete 09/06/24 13:00 Vaginal Vaginal Culture - Final Enterococcus faecalis Methicillin Resistant S.aureus Complete Labs and/or images reviewed: Labs reviewed by me, Image(s) reviewed by me Problem List/Assessment/Plan Problem List/Assessment/Plan NEUROLOGY Acute metabolic encephalopathy likely due to septic shock - patient is sedated and mechanically ventilated, RASS -5 CARDIOVASCULAR Septic shock NSTEMI likely type 2 secondary to septic shock Probable right ventricular failure Prolonged QTC-resolved - cardiology recommended conservative management - echocardiogram shows dyskinesis of IVC, dilated RV and dilated RA. RV failure. Mild LVH and mild LV diastolic dysfunction with EF 65 % - blood culture 09/02 showed Staph hominis sensitive to vancomycin - repeat blood culture 09/11 showed Staphylococcus epidermidis sensitive to Cipro, clinda, linezolid, vancomycin - repeat blood culture 09/24 shows no growth - started furosemide 40 mg IV daily starting 09/27 RESPIRATORY Acute hypoxic respiratory failure secondary to probable community-acquired pneumonia due to MRSA and S pneumo - patient was intubated and mechanically ventilated starting 09/02 - bronchoscopy completed 09/07, results showed MRSA positive - repeat bronchoscopy 09/08, showed comparatively lesser secretions - sputum culture 09/02 showed MRSA, strep pneumo - bronchial wash specimen collected 09/07 showed MRSA - repeat respiratory culture 09/22 showed MRSA and presumtive Juju albicans - received cefepime from 09/02 to 09/06 - received meropenem 11/03 to 09/05, - received vancomycin from 09/03 to 09/11 - received ceftriaxone 2 g daily from 09/13 to 09/19 - received linezolid from 09/11 to 09/17 - continue mechanical ventilation with a FiO2 30, tidal volume 450, peep 5, peak pressure 23 - continue albuterol and ipratropium q.6 hour p.r.n. - restarted vancomycin 09/27 and continue levofloxacin - started Diflucan daily starting 09/27 - CPAP trial ended early as the patient became tachypneic with RR of 46/min. -considering tracheostomy at this time if the patient fails CPAP on 09/29 GI History of multiple surgeries secondary to hernia and bowel obstruction Multiple ventral wall hernias Possible bowel obstruction Transaminitis secondary to septic shock Rhabdomyolysis likely secondary to immobilization Surgeon consulted-recommended conservative management, small varices could not be performed at this moment due to respiratory status of the patient Continue IV pantoprazole 40 mg daily Continue docusate /KIDNEY FEDE, likely secondary to VMN - resolved Probable pelvic inflammatory disease Hyponatremia-resolved Hypomagnesemia Hypercalcemia -corrected calcium 12 - creatinine downtrending - creatinine kinase downtrended from 8215 to 77 - nephrology consulted, last hemodialysis session was performed on 09/10 - urine bacterial culture 09/02 showed less than 99898 CFU of coagulase-negative Staphylococcus - vaginal culture 09/06 showed coagulase-negative Staphylococcus, Enterococcus faecalis, MRSA sensitive to daptomycin, linezolid, vancomycin, TMP SMX - patient had purulent vaginal discharge - 40 mEq potassium and 2 g of magnesium administered 09/28 ENDO Hypertriglyceridemia, TG 623 09/04, 320 at 09/15 Likely due to propofol, discontinued propofol Obesity - Continue Atorvastatin 40 mg ID Polysubstance use - Infectious disease consulted, continue management as above - Per patient's daughter, patient uses amphetamine, marijuana, smokes cigarettes - HIV testing negative - Hepatitis panel negative Hematology Lower extremity DVT - Ultrasound Doppler of lower extremities 08/15 shows nonocclusive DVT of the left popliteal vein - Continue Lovenox 100 mg b.i.d. LINES ETT, intubated on 09/02/2024 IV access Left upper arm PICC line, placed on 09/13 Drips: Levophed turned off 10:00 a.m. 09/28 Fentanyl 25 Nutrition Jevity 40 mL/hour Goals of care/advance care planning; FULL CODE; discussed on for 24 minutes. PUD prophylaxis; therapeutic Lovenox DVT prophylaxis; pantoprazole 40 mg IV daily Case discussed with Dr. Pinon Plan discussed with the patient's daughter at bedside and over the phone for more than 30 minutes, code status full code Critical care time including review of chart, discussing with patient's family, cpap trial and the nurse excluding procedures: 82 minutes Plan discussed with: Patient, Daughter (At bedside), Other (Nurse) My Orders My Orders Orders - NAN AMAYA RESIDENT Procedure Category Date Status Time Chest Xray 1 View XY 09/27/24 Resulted 08:36 Chest Portable XY 09/28/24 Resulted 04:00 Potassium Chl PHA 09/28/24 In Process 20meq/100ml 06:45 Magnesium Sulfate PHA 09/28/24 In Process 1gm/100ml 07:00 Dietary Evaluation Review Comments: 1. Consider EN/TPN if NPO >7days 2. Continue plan of care Expected Outcomes/Goals: 1. Pt will meet >75% of estimated needs within 2-3 days Date of Service: Sep 28, 2024 Billing Provider: DANE PINON MD Common Visit Codes: 44912-ZVMXONSM CARE 30-74 MIN, 18609-[id number] CARE-EACH +30MIN NAN AMAYA Sep 28, 2024 06:48 DANE PINON MD Sep 29, 2024 12:14
[2024-09-28] MEDS: POTASSIUM CHL 20MEQ/100ML 100 ML IV SCH (07:00)
[2024-09-28] MEDS: MAGNESIUM SULFATE 1GM/100ML 100 ML IV SCH (07:04)
[2024-09-28] MEDS: ATROPINE SULF 1 MG/10ml SYR ONE (07:12)
[2024-09-28 07:48] LABS: Base Excess 1.8 mmol/L (-2.0-3.0)
[2024-09-28] MEDS: FLUCONAZOLE 200MG/100ML 100 ML IV SCH (10:20)
[2024-09-28] MEDS: FUROSEMIDE 40 MG/4 ML VIAL IV SCH (10:21)
--- NOTE | 2024-09-28 19:15 | DVHPN2 ---
Progress Note - Dictate Date Seen: Sep 28, 2024 Has the PT tested + for MRSA If YES, has PT been informed?: Yes Medical Necessity Reason Pt with a Central, PICC or Fol: Yes The following are medically ne: Betancourt Catheter Reason for betancourt catheter: Strict I&O Subjective Patient is sedated and mechanically ventilated. Patient CPAP trial was ended early before because the pt became tachypneic. So CPAP trial again in morning. recheck labs in morning AM. Pathology report from lung biopsy pending. 09/26 Chest x-ray showed: Lines and tubes in satisfactory position. No significant interval change. vital signs Vital Sign Date Time Temp Pulse Resp B/P (MAP) Pulse Ox O2 Delivery O2 Flow Rate FiO2 09/28/24 18:10 80 28 128/77 (94) 94 30 09/28/24 18:00 Mechanical Ventilator+ 09/28/24 16:15 98.5 98.5 Total Intake and Output 09/27/24 09/27/24 09/28/24 15:00 23:00 07:00 Intake Total 658.128 ml 124.575 ml 130.925 ml Output Total 1150 ml 950 ml Balance 658.128 ml -1025.425 ml -819.075 ml medications Current Medications Medications Dose Ordered Sig/Acacia Route Start Time Stop Time Status Last Admin Dose Admin Acetaminophen 650 mg Q4HP PRN GT 09/03/24 10:00 09/03/24 10:21 650 MG Pantoprazole Sodium 40 mg DAILY IV 09/04/24 10:00 09/28/24 10:20 40 MG Sodium Chloride 10 ml QSHIFT@ IV 09/13/24 22:00 09/28/24 10:21 10 ML Enoxaparin Sodium 100 mg Q12HR SC 09/19/24 22:00 09/28/24 10:21 100 MG Albuterol 2.5 mg Q6HPRN PRN NEB 09/21/24 19:00 09/28/24 10:26 2.5 MG Ipratropium [place] 0.5 mg Q6HPRN PRN NEB 09/21/24 19:00 09/28/24 10:26 0.5 MG Vancomycin HCl 0 ml @ 0 mls/hr UD IV 09/22/24 10:45 Levofloxacin 50 ml @ 50 mls/hr DAILY@1200,1300 IV 09/22/24 12:00 09/28/24 13:51 50 MLS/HR Midazolam HCl 50 ml @ 1 mls/hr Q24H IV 09/22/24 19:45 09/28/24 13:30 1 MLS/HR Fentanyl Citrate 250 ml @ 2.5 mls/hr Q24H IV 09/22/24 19:45 09/28/24 13:22 5 MLS/HR Norepinephrine Bitartrate 32 mg/ Sodium Chloride 250 ml @ 0.938 mls/ hr Q24H IV 09/22/24 21:15 09/28/24 00:20 0.938 MLS/HR Dexmedetomidine HCl 400 mcg/ Dextrose 100 ml @ 4.915 mls/ hr [id number] IV 09/23/24 09:30 09/28/24 05:35 4.915 MLS/HR Enteral Nutritional Formula 1,000 ml 30ML/HR GT 09/23/24 12:30 09/28/24 17:53 1,000 ML Potassium Chloride/Sodium Chloride 1,000 ml @ 50 mls/hr Q20H IV 09/25/24 12:00 Cancel Vancomycin HCl 250 ml @ 250 mls/hr Q10H IV 09/27/24 10:00 09/28/24 17:20 250 MLS/HR Fluconazole 100 ml @ 100 mls/hr DAILY IV 09/28/24 10:00 09/28/24 10:20 100 MLS/HR Furosemide 40 mg DAILY IV 09/28/24 10:00 09/28/24 10:21 40 MG objective General: Intubated and sedated HEENT: Atraumatic,intubated Neck: No swelling Lungs: Equal air entry and clear to auscultation Cardiovascular: S1 S2 heard no murmur Abdomen: Soft nontender, no organomegaly, nondistended Neuro: sedated, unable to assess Psych: unable to assess laboratory and microbiology Laboratory Tests 09/28/24 03:52 Test 09/28/24 03:52 Range/Units Serum Glucose 111 H 74-106 mg/dL Assessment/Plan Patient is a 63-year-old female presented to the hospital with: failed extubation, reintubated Staphylococcus aureus pneumonia ( MRSA) Streptococcus Pneumoniae pneumonia Septic shock resolving bacteremia : coag neg staphylococccus, possible contamination Acute Respiratory Failure [requiring mechanical ventilation] severe hypoxia Metabolic acidosis FEDE Morbidly obese BMI = 40 PE history Recommendations: Reintubation on 09/22. family is against trach, plan for Cpap 09/22 respiratory culture is growing preliminary staphylococcus aureus Follow sensitivity Continue IV vancomycin [Restarted ] I feel she is already received prolonged course of antibiotics for MRSA pneumonia. 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 Patient had difficult extubation in the past, 4 years ago when she was intubated for surgery as per records. 09/26, Wound culture preliminary: Coagulase Negative Staphylococcus Antibiotics review Cefepime 09/02- 09/06 Meropenem 09/03-09/05 Ceftriaxone 09/07-ongoing last given 09/18 Vancomycin 09/03- 09/11 Linezolid 09/11- ongoing - 09/17 last given Blood culture:co ag neg staph, i think its contaminated. Recent on 09/07 showed no growth Pulmonary on board for vent management full code prognosis guarded crit time 35 mins spent during the encounter. Thank you for consult and for giving an opportunity to take care of this patient. Dietary Evaluation Review Comments: 1. Consider EN/TPN if NPO >7days 2. Continue plan of care Expected Outcomes/Goals: 1. Pt will meet >75% of estimated needs within 2-3 days Plan discussed with: Other ANGELLA REYES MD Sep 28, 2024 19:15
--- NOTE | 2024-09-28 22:30 | DVHPN2 ---
Progress Note - Dictate Date Seen: Sep 28, 2024 Has the PT tested + for MRSA If YES, has PT been informed?: Yes Medical Necessity Reason Pt with a Central, PICC or Fol: Yes The following are medically ne: Betancourt Catheter Reason for betancourt catheter: Strict I&O Subjective Patient was seen and evaluated in follow up in the ICU. Patient is intubated on ventilator. 30% FiO2. Overnight patient became bradycardic with HR in the 30s. Sedation was turned off and the patient's HR went up to 58 beats per minute which is her baseline. CPAP trial ended early as the patient became tachypneic with RR of 46/min. Patients electrolytes are being replaced. Patient receiving tube feeds with Jevity. vital signs Vital Sign Date Time Temp Pulse Resp B/P (MAP) Pulse Ox O2 Delivery O2 Flow Rate FiO2 09/28/24 22:04 74 24 92/53 (66) 94 30 09/28/24 18:00 Mechanical Ventilator+ 09/28/24 16:15 98.5 98.5 Total Intake and Output 09/27/24 09/27/24 09/28/24 15:00 23:00 07:00 Intake Total 658.128 ml 124.575 ml 130.925 ml Output Total 1150 ml 950 ml Balance 658.128 ml -1025.425 ml -819.075 ml medications Current Medications Medications Dose Ordered Sig/Acacia Route Start Time Stop Time Status Last Admin Dose Admin Acetaminophen 650 mg Q4HP PRN GT 09/03/24 10:00 09/03/24 10:21 650 MG Pantoprazole Sodium 40 mg DAILY IV 09/04/24 10:00 09/28/24 10:20 40 MG Sodium Chloride 10 ml QSHIFT@10,22 IV 09/13/24 22:00 09/28/24 21:32 10 ML Enoxaparin Sodium 100 mg Q12HR SC 09/19/24 22:00 09/28/24 21:32 100 MG Albuterol 2.5 mg Q6HPRN PRN NEB 09/21/24 19:00 09/28/24 10:26 2.5 MG Ipratropium [place] 0.5 mg Q6HPRN PRN NEB 09/21/24 19:00 09/28/24 10:26 0.5 MG Vancomycin HCl 0 ml @ 0 mls/hr UD IV 09/22/24 10:45 Levofloxacin 50 ml @ 50 mls/hr DAILY@1200,1300 IV 09/22/24 12:00 09/28/24 13:51 50 MLS/HR Midazolam HCl 50 ml @ 1 mls/hr Q24H IV 09/22/24 19:45 09/28/24 21:31 10 MLS/HR Fentanyl Citrate 250 ml @ 2.5 mls/hr Q24H IV 09/22/24 19:45 09/28/24 13:22 5 MLS/HR Norepinephrine Bitartrate 32 mg/ Sodium Chloride 250 ml @ 0.938 mls/ hr Q24H IV 09/22/24 21:15 09/28/24 00:20 0.938 MLS/HR Dexmedetomidine HCl 400 mcg/ Dextrose 100 ml @ 4.915 mls/ hr [id number] IV 09/23/24 09:30 09/28/24 05:35 4.915 MLS/HR Enteral Nutritional Formula 1,000 ml 30ML/HR GT 09/23/24 12:30 09/28/24 17:53 1,000 ML Potassium Chloride/Sodium Chloride 1,000 ml @ 50 mls/hr Q20H IV 09/25/24 12:00 Cancel Vancomycin HCl 250 ml @ 250 mls/hr Q10H IV 09/27/24 10:00 09/28/24 17:20 250 MLS/HR Fluconazole 100 ml @ 100 mls/hr DAILY IV 09/28/24 10:00 09/28/24 10:20 100 MLS/HR Furosemide 40 mg DAILY IV 09/28/24 10:00 09/28/24 10:21 40 MG objective GENERAL: Intubated on ventilator. Morbidly obese. LUNGS: Decreased breath sounds. CARDIOVASCULAR: Heart sounds are good. ABDOMEN: Soft. Morbid pannus limited physical palpation. SKIN: Multiple scars to abdomen. laboratory and microbiology Laboratory Tests 09/28/24 03:52 Test 09/28/24 03:52 Range/Units Serum Glucose 111 H 74-106 mg/dL Problem List Septic shock. Acute on chronic respiratory failure. NSTEMI type II secondary to above. Rule out structural heart disease. Prolonged QT interval. Morbid obesity, Class 3. Assessment/Plan Continued all current supportive medical care. DVT and GI prophylactics. Diuretics with Lasix. Nebulized breathing treatments. Vasopressors for hemodynamic support. Additional plan as per the hospital course. Critical care time of 45 minutes provided to include time spent evaluation of patient at bedside, when appropriate patient/family education for diagnosis, treatment plan, review of pertinent medical information and discussion of care with specialty providers and PCP. Mechanical ventilator parameters, treatment and adjustments have personally been reviewed by me and treatment plan by electronic device repairer has also been reviewed. Dietary Evaluation Review Comments: 1. Consider EN/TPN if NPO >7days 2. Continue plan of care Expected Outcomes/Goals: 1. Pt will meet >75% of estimated needs within 2-3 days Plan discussed with: Other RELL STEWART MD Sep 28, 2024 22:30
--- NOTE | 2024-09-28 22:37 | DVHPN2 ---
Consult Progress Note Objective vital signs Vital Sign Date Time Temp Pulse Resp B/P (MAP) Pulse Ox O2 Delivery O2 Flow Rate FiO2 09/28/24 22:04 74 24 92/53 (94) 12 30 09/28/24 18:00 Mechanical Ventilator+ 09/28/24 16:15 98.5 98.5 Total Intake and Output 09/27/24 09/27/24 09/28/24 15:00 23:00 07:00 Intake Total 658.128 ml 124.575 ml 130.925 ml Output Total 1150 ml 950 ml Balance 658.128 ml -1025.425 ml -819.075 ml medications Current Medications Medications Dose Ordered Sig/[place]acia Route Start Time Stop Time Status Last Admin Dose Admin Acetaminophen 650 mg Q4HP PRN GT 09/03/24 10:00 09/03/24 10:21 650 MG Pantoprazole Sodium 40 mg DAILY IV 09/04/24 10:00 09/28/24 10:20 40 MG Sodium Chloride 10 ml QSHIFT@ IV 09/13/24 22:00 09/28/24 21:32 10 ML Enoxaparin Sodium 100 mg Q12HR SC 09/19/24 22:00 09/28/24 21:32 100 MG Albuterol 2.5 mg Q6HPRN PRN NEB 09/21/24 19:00 09/28/24 10:26 2.5 MG Ipratropium [place] 0.5 mg Q6HPRN PRN NEB 09/21/24 19:00 09/28/24 10:26 0.5 MG Vancomycin HCl 0 ml @ 0 mls/hr UD IV 09/22/24 10:45 Levofloxacin 50 ml @ 50 mls/hr DAILY@1200,1300 IV 09/22/24 12:00 09/28/24 13:51 50 MLS/HR Midazolam HCl 50 ml @ 1 mls/hr Q24H IV 09/22/24 19:45 09/28/24 21:31 10 MLS/HR Fentanyl Citrate 250 ml @ 2.5 mls/hr Q24H IV 09/22/24 19:45 09/28/24 13:22 5 MLS/HR Norepinephrine Bitartrate 32 mg/ Sodium Chloride 250 ml @ 0.938 mls/ hr Q24H IV 09/22/24 21:15 09/28/24 00:20 0.938 MLS/HR Dexmedetomidine HCl 400 mcg/ Dextrose 100 ml @ 4.915 mls/ hr [id number] IV 09/23/24 09:30 09/28/24 05:35 4.915 MLS/HR Enteral Nutritional Formula 1,000 ml 30ML/HR GT 09/23/24 12:30 09/28/24 17:53 1,000 ML Potassium Chloride/Sodium Chloride 1,000 ml @ 50 mls/hr Q20H IV 09/25/24 12:00 Cancel Vancomycin HCl 250 ml @ 250 mls/hr Q10H IV 09/27/24 10:00 09/28/24 17:20 250 MLS/HR Fluconazole 100 ml @ 100 mls/hr DAILY IV 09/28/24 10:00 09/28/24 10:20 100 MLS/HR Furosemide 40 mg DAILY IV 09/28/24 10:00 09/28/24 10:21 40 MG laboratory and microbiology Laboratory Tests 09/28/24 03:52 Test 09/28/24 03:52 Range/Units Serum Glucose 111 H 74-106 mg/dL Dietary Evaluation Review Comments: 1. Consider EN/TPN if NPO >7days 2. Continue plan of care Expected Outcomes/Goals: 1. Pt will meet >75% of estimated needs within 2-3 days ROMY TURCIOS MD Sep 28, 2024 22:36
[2024-09-29] VITALS (115 sets, daily range): BP systolic 81–138; BP diastolic 42–101; PULSE 62–108; RESP 18–36; TEMP 98–98.8; O2SAT 5–100
[2024-09-29 03:41] LABS: Hematocrit 31.2 % (36.0-46.0); Hemoglobin 10.5 g/dL (12.2-16.2); Mean Corpuscular Hemoglobin 29.5 pg (28.0-32.0); Mean Corpuscular Hgb Conc. 33.7 g/dL (32.0-36.0); Mean Corpuscular Volume 87.5 fL (80.0-100.0); Platelet Count (auto) 346 10^3/uL (140-450); Red Blood Cells 3.57 10^6/uL (4.0-5.20); Red Cell Distribution Width 14.2 % (11.8-14.3); White Blood Cell 6.9 10^3/uL (4.4-10.8)
[2024-09-29 03:51] LABS: Band Neutrophils % (manual) 0; Basophils % (manual) 0 (0.0-2.0); Blast Cells 0; Metamyelocytes % 0; Promyelocytes % 0; Reactive Lymphocytes 0
[2024-09-29 03:55] LABS: Alanine Aminotransferase 18 U/L (7-40); Albumin 3.3 g/dL (3.2-4.8); Alkaline Phosphatase 112 U/L (46-116); Anion Gap 7 (5-15); Aspartate Aminotransferase 17 U/L (13-40); BUN/Creatinine Ratio 10.1 (10.0-20.0); Bilirubin, Total 0.4 mg/dL (0.2-1.0); Blood Urea Nitrogen 9 mg/dL (9-23); Carbon Dioxide 28 mmol/L (20-31); Chloride 105 mmol/L (98-107); Magnesium 1.7 mg/dL (1.6-2.6); Sodium 140 mmol/L (136-145)
[2024-09-29 03:56] LABS: Total Protein 6.1 g/dL (5.7-8.2)
--- NOTE | 2024-09-29 04:16 | DVH ---
CHEST RADIOGRAPH Indication: Follow up Technique: Single frontal view of the chest was obtained Comparison: XY CHEST PORTABLE on DOS: 09/28/24 FINDINGS: Lines and Tubes: The endotracheal tube terminates 3.3 cm above the teetee. Left PICC terminates in th e superior vena cava. The enteric tube terminates below the left hemidiaphragm and outside the field of view. Lungs: Bibasilar opacities. Pleura: No effusion. No pneumothorax. Cardiomediastinal contours: Unremarkable Bones: No acute osseous abnormality. IMPRESSION: 1. Stable position of the support lines and tubes. 2. Bibasilar opacities which may reflect atelectasis or pneumonia.
[2024-09-29 04:29] LABS: Calcium 11.7 mg/dL (8.7-10.4); Glucose 118 mg/dL (74-106); Potassium 2.9 mmol/L (3.5-5.1)
[2024-09-29 05:58] LABS: Eosinophils % (manual) 8 (0-7); Lymphocytes % (manual) 34 (10.0-50.0); Monocytes % (manual) 14 (0-12); Myelocytes % 1
[2024-09-29] MEDS: POTASSIUM CHL 20MEQ/100ML 100 ML IV SCH (05:58)
[2024-09-29 05:59] LABS: Large Platelets FEW; Platelet Estimate Adequate; Stomatocytes Moderate
--- NOTE | 2024-09-29 06:50 | DVHPNRES ---
Progress Note Date Seen: Sep 29, 2024 Resident Creating Document: NAN AMAYA RESIDENT Has the PT tested + for MRSA If YES, has PT been informed?: Yes Medical Necessity Reason Pt with a Central, PICC or Fol: Yes The following are medically ne: PICC Line, Betancourt Catheter Reason for betancourt catheter: Strict I&O Subjective Review of Systems This is a 63-year-old female patient with PMHx of PE in 2015, multiple abdominal surgeries including hernia and bowel obstruction, lasts hernia surgery [place] [address] Anaya, right distal ureteral calculus in February 2024, AKA, rib fractures, chronic nicotine dependence in polysubstance use including methamphetamine and cannabis presented to the ER with a chief complaint of shortness of breaths. She was successfully intubated on 09/02. Per patient's daughter, patient became short of breath and febrile at 102.7 F, and therefore they had to call [facility]. Patient was saturating at 70% and therefore the patient was brought to the ER. She was intubated once before 4 years back after abdominal surgery at [facility] where she experienced difficult extubation. Patient is a nonsmoker for more than 50 years, currently smokes more than 1 pack a day. 09/05 - 2 small granulating wounds on abdomen are suture granulomas, sutures removed by surgeon 09/28 - Patient seen and examined at the bedside. Overnight patient became bradycardic, pulse was 30s, telemetry reviewed rhythm was regular, likely sinus bradycardia, sedation was turned off and the patient's pulse went up to 58 beats per minute which is her baseline. No bowel movements overnight. Patient made around 950 cc of urine. 40 mEq of potassium supplement and 2 g magnesium supplemented. Continue IV vancomycin and levofloxacin. Id on board. CPAP trial ended early as the patient became tachypneic with RR of 46/min. Raised Jevity 1.2 to 40 mL/hour. 09/29 - patient is sedated and mechanically intubated. Overnight patient made 450 mL of urine. ABG in the a.m. shows respiratory alkalosis, CO2 decreased from 38-32 and bicarb decreased from 25-22. Corrected calcium 12.3. PTH level 19. Chest x-ray shows left-sided aeration is better than as compared to when on admission. Patient underwent CPAP trial which and that as the patient became tachypneic. Discussed the option of tracheostomy with patient's daughter Toshia, she said that the family and herself does not want tracheostomy and did not think that patient would want tracheostomy. Patient's family requesting for bronchoscopy. Dr. Luis consulted for bronchoscopy per patient's family request. Bronchoscopy performed 09/29 shows Right lower lobe atelectasis due to mucous plugging. Mucous plugging from R6-R10 K 2.9, 80 mEq replenished. Mag 1.7, 2 g replenished. Objective vital signs Vital Sign Date Time Temp Pulse Resp B/P (MAP) Pulse Ox O2 Delivery O2 Flow Rate FiO2 09/29/24 06:30 69 22 105/65 (78) 95 09/29/24 06:25 30 09/29/24 06:00 Mechanical Ventilator+ 09/29/24 04:00 98.0 98.0 Total Intake and Output 09/28/24 09/28/24 09/29/24 15:00 23:00 07:00 Intake Total 285.820 ml 530.458 ml 70 ml Output Total 1150 ml 450 ml Balance 285.820 ml -619.542 ml -380 ml medications Current Medications Medications Dose Ordered Sig/Acacia Route Start Time Stop Time Status Last Admin Dose Admin Acetaminophen 650 mg Q4HP PRN GT 09/03/24 10:00 09/03/24 10:21 650 MG Pantoprazole Sodium 40 mg DAILY IV 09/04/24 10:00 09/28/24 10:20 40 MG Sodium Chloride 10 ml QSHIFT@10,22 IV 09/13/24 22:00 09/28/24 21:32 10 ML Enoxaparin Sodium 100 mg Q12HR SC 09/19/24 22:00 09/28/24 21:32 100 MG Albuterol 2.5 mg Q6HPRN PRN NEB 09/21/24 19:00 09/28/24 10:26 2.5 MG Ipratropium [place] 0.5 mg Q6HPRN PRN NEB 09/21/24 19:00 09/28/24 10:26 0.5 MG Vancomycin HCl 0 ml @ 0 mls/hr UD IV 09/22/24 10:45 Levofloxacin 50 ml @ 50 mls/hr DAILY@1200,1300 IV 09/22/24 12:00 09/28/24 13:51 50 MLS/HR Midazolam HCl 50 ml @ 1 mls/hr Q24H IV 09/22/24 19:45 09/29/24 02:02 10 MLS/HR Fentanyl Citrate 250 ml @ 2.5 mls/hr Q24H IV 09/22/24 19:45 09/29/24 00:06 30 MLS/HR Norepinephrine Bitartrate 32 mg/ Sodium Chloride 250 ml @ 0.938 mls/ hr Q24H IV 09/22/24 21:15 09/28/24 00:20 0.938 MLS/HR Dexmedetomidine HCl 400 mcg/ Dextrose 100 ml @ 4.915 mls/ hr [id number] IV 09/23/24 09:30 09/28/24 05:35 4.915 MLS/HR Enteral Nutritional Formula 1,000 ml 30ML/HR GT 09/23/24 12:30 09/28/24 17:53 1,000 ML Potassium Chloride/Sodium Chloride 1,000 ml @ 50 mls/hr Q20H IV 09/25/24 12:00 Cancel Vancomycin HCl 250 ml @ 250 mls/hr Q10H IV 09/27/24 10:00 09/29/24 02:04 250 MLS/HR Fluconazole 100 ml @ 100 mls/hr DAILY IV 09/28/24 10:00 09/28/24 10:20 100 MLS/HR Furosemide 40 mg DAILY IV 09/28/24 10:00 09/28/24 10:21 40 MG Potassium Chloride 100 ml @ 50 mls/hr Q2H IV 09/29/24 05:15 09/29/24 13:14 09/29/24 05:58 50 MLS/HR Examination Obese female patient lying in bed, in no acute distress General: Morbidly obese, afebrile, palor, mucosae are moist, positive light reflex Cardiovascular: Regular S1 and S2. No murmurs, gallops or rubs. No JVD elevation. Lower and upper extremity resolving edema noticed. Respiratory: Equal bilateral air entry, saturating 94% on FiO2 of 30%. Abdomen: Abdomen is soft, hypoactive bowel sounds, multiple ventral hernia seen, right-sided dressing removed, no drainage noticed. Stage II decubitus ulcer seen with overlying erythema but no drainage noticed. Midline scar seen. Genitourinary: Urinary catheter seen draining 950 cc of urine for the past 24 hours MSK/skin: Skin is dry and warm Neurological: Pupils are isocoric and reactive. laboratory and microbiology Laboratory Tests 09/29/24 03:09 Test 09/29/24 03:09 Range/Units Serum Glucose 118 H 74-106 mg/dL Microbiology Date/Time Source Procedure Growth Status 09/26/24 13:00 Abdomen Gram Stain - Final Resulted 09/26/24 13:00 Wound Culture - Preliminary Methicillin Resistant S.aureus Resulted 09/24/24 10:59 Blood Blood Culture - Preliminary NO GROWTH AFTER 72 HOURS OF INCUBATION. Resulted 09/22/24 10:59 Sputum Gram Stain - Final Complete 09/22/24 10:59 Respiratory Culture - Final Methicillin Resistant S.aureus Presumptive Juju albicans Complete 09/11/24 00:00 Voided Urine Urine Culture - Final Complete 09/06/24 13:00 Vaginal Vaginal Culture - Final Enterococcus faecalis Methicillin Resistant S.aureus Complete Labs and/or images reviewed: Labs reviewed by me, Image(s) reviewed by me Problem List/Assessment/Plan Problem List/Assessment/Plan NEUROLOGY Acute metabolic encephalopathy likely due to septic shock - patient is sedated and mechanically ventilated, RASS -2 CARDIOVASCULAR Septic shock NSTEMI likely type 2 secondary to septic shock Probable right ventricular failure Prolonged QTC-resolved - cardiology recommended conservative management - echocardiogram shows dyskinesis of IVC, dilated RV and dilated RA. RV failure. Mild LVH and mild LV diastolic dysfunction with EF 65 % - blood culture 09/02 showed Staph hominis sensitive to vancomycin - repeat blood culture 09/11 showed Staphylococcus epidermidis sensitive to Cipro, clinda, linezolid, vancomycin - repeat blood culture 09/24 shows no growth - started furosemide 40 mg IV daily starting 09/27 RESPIRATORY Acute hypoxic respiratory failure secondary to probable community-acquired pneumonia due to MRSA and S pneumo Advanced COPD Chronic nicotine dependence - patient was intubated and mechanically ventilated starting 09/02 - bronchoscopy completed 09/07, results showed MRSA positive - repeat bronchoscopy 09/08, showed comparatively lesser secretions - sputum culture 09/02 showed MRSA, strep pneumo - bronchial wash specimen collected 09/07 showed MRSA - repeat respiratory culture 09/22 showed MRSA and presumtive Juju albicans - received cefepime from 09/02 to 09/06 - received meropenem 11/03 to 09/05, - received vancomycin from 09/03 to 09/11 - received ceftriaxone 2 g daily from 09/13 to 09/19 - received linezolid from 09/11 to 09/17 - Continue mechanical ventilation with a FiO2 30, tidal volume 450, peep 5, peak pressure 23 - continue albuterol and ipratropium q.6 hour p.r.n. - restarted vancomycin 09/27 and continue levofloxacin - started Diflucan daily starting 09/27 - 09/28 and 09/29 CPAP trial ended early as the patient became tachypneic with RR of 46/min. - patient's family refusing tracheostomy - Dr. Luis consulted for bronchoscopy. Bronchoscopy performed 09/29 shows mucus plugs in the left upper lobe. GI History of multiple surgeries secondary to hernia and bowel obstruction Multiple ventral wall hernias Possible bowel obstruction Transaminitis secondary to septic shock Rhabdomyolysis likely secondary to immobilization Surgeon consulted-recommended conservative management, small varices could not be performed at this moment due to respiratory status of the patient Continue IV pantoprazole 40 mg daily Continue docusate /KIDNEY FEDE, likely secondary to VMN - resolved Probable pelvic inflammatory disease Hyponatremia-resolved Hypomagnesemia Hypercalcemia -corrected calcium 12, PTH 19 - creatinine downtrending - creatinine kinase downtrended from 8215 to 77 - nephrology consulted, last hemodialysis session was performed on 09/10 - urine bacterial culture 09/02 showed less than 92762 CFU of coagulase-negative Staphylococcus - vaginal culture 09/06 showed coagulase-negative Staphylococcus, Enterococcus faecalis, MRSA sensitive to daptomycin, linezolid, vancomycin, TMP SMX - patient had purulent vaginal discharge - 40 mEq potassium and 2 g of magnesium administered 09/28 ENDO Hypertriglyceridemia, TG 623 09/04, 320 at 09/15 Likely due to propofol, discontinued propofol Obesity - Continue Atorvastatin 40 mg ID Polysubstance use - Infectious disease consulted, continue management as above - Per patient's daughter, patient uses amphetamine, marijuana, smokes cigarettes - HIV testing negative - Hepatitis panel negative Hematology Lower extremity DVT - Ultrasound Doppler of lower extremities 08/15 shows nonocclusive DVT of the left popliteal vein - Continue Lovenox 100 mg b.i.d. LINES ETT, intubated on 09/02/2024 IV access Left upper arm PICC line, placed on 09/13 Drips: Versed 10 Levophed 4 Fentanyl 300 Nutrition Jevity 40 mL/hour Goals of care/advance care planning; FULL CODE; discussed on for 24 minutes. PUD prophylaxis; therapeutic Lovenox DVT prophylaxis; pantoprazole 40 mg IV daily Case discussed with Dr. Pinon Plan discussed with the patient's daughter over the phone for more than 30 minutes, code status full code Critical care time including review of chart, CPAP trial, discussing with patient's family, and the nurse excluding procedures: 81 minutes Plan discussed with: Patient, Daughter (Over the phone) My Orders My Orders Orders - NAN AMAYA Procedure Category Date Status Time Chest Xray 1 View XY 09/29/24 Resulted 04:00 Abg W/ Co-Ox RT 09/29/24 Logged 04:00 Magnesium Sulfate PHA 09/29/24 In Process 1gm/100ml 06:45 Parathyroid Hormone LAB 09/29/24 Logged Intact 06:46 Vitamin D, 25-Hydroxy LAB 09/29/24 Logged 06:46 Dietary Evaluation Review Comments: 1. Consider EN/TPN if NPO >7days 2. Continue plan of care Expected Outcomes/Goals: 1. Pt will meet >75% of estimated needs within 2-3 days Date of Service: Sep 29, 2024 Billing Provider: DANE PINON MD Common Visit Codes: 74515-NYYRZDRD CARE 30-74 MIN, 92899-OBSEQHSO CARE-EACH +30MIN Date of Service: Sep 30, 2024 Billing Provider: DANE PINON MD Common Visit Codes: 60383-[id number] CARE 30-74 MIN, 04177-TSHBFGGO CARE-EACH +30MIN NAN AMAYA Sep 29, 2024 06:50 DANE PINON MD Sep 30, 2024 11:44
[2024-09-29 08:29] LABS: Base Excess -1.2 mmol/L (-2.0-3.0)
[2024-09-29] MEDS: MAGNESIUM SULFATE 1GM/100ML 100 ML IV ONE ×2 (08:29→12:44)
[2024-09-29 17:10] LABS: Potassium 3.7 mmol/L (3.5-5.1)
[2024-09-29 17:17] LABS: Magnesium 2.1 mg/dL (1.6-2.6)
--- NOTE | 2024-09-29 19:01 | DVHPN2 ---
Progress Note - Dictate Date Seen: Sep 29, 2024 Has the PT tested + for MRSA If YES, has PT been informed?: Yes Medical Necessity Reason Pt with a Central, PICC or Fol: Yes The following are medically ne: PICC Line, Betancourt Catheter Reason for betancourt catheter: Strict I&O Subjective Patient is sedated and mechanically ventilated. Overnight patient made 450 mL of urine. Chest x-ray shows left-sided aeration is better than as compared to when on admission. Patient CPAP trial was ended early before because the pt became tachypneic. Patient's family requesting for bronchoscopy. Bronchoscopy performed 09/29 shows mucus plugs in the left upper lobe. Pathology report from lung biopsy pending. 09/26 Chest x-ray showed: Lines and tubes in satisfactory position. No significant interval change. vital signs Vital Sign Date Time Temp Pulse Resp B/P (MAP) Pulse Ox O2 Delivery O2 Flow Rate FiO2 09/29/24 18:12 79 09/29/24 18:11 22 95 Mechanical Ventilator+ 30 30 09/29/24 18:00 99/67 (78) 09/29/24 16:00 98.8 98.8 Total Intake and Output 09/28/24 09/28/24 09/29/24 15:00 23:00 07:00 Intake Total 285.820 ml 530.458 ml 655.000 ml Output Total 1150 ml 450 ml Balance 285.820 ml -619.542 ml 205.000 ml medications Current Medications Medications Dose Ordered Sig/Acacia Route Start Time Stop Time Status Last Admin Dose Admin Acetaminophen 650 mg Q4HP PRN GT 09/03/24 10:00 09/03/24 10:21 650 MG Pantoprazole Sodium 40 mg DAILY IV 09/04/24 10:00 09/29/24 09:57 40 MG Sodium Chloride 10 ml QSHIFT@, IV 09/13/24 22:00 09/29/24 10:01 10 ML Enoxaparin Sodium 100 mg Q12HR SC 09/19/24 22:00 09/29/24 09:59 100 MG Albuterol 2.5 mg Q6HPRN PRN NEB 09/21/24 19:00 09/28/24 10:26 2.5 MG Ipratropium [place] 0.5 mg Q6HPRN PRN NEB 09/21/24 19:00 09/28/24 10:26 0.5 MG Vancomycin HCl 0 ml @ 0 mls/hr UD IV 09/22/24 10:45 Levofloxacin 50 ml @ 50 mls/hr DAILY@1200,1300 IV 09/22/24 12:00 09/29/24 15:15 50 MLS/HR Midazolam HCl 50 ml @ 1 mls/hr Q24H IV 09/22/24 19:45 09/29/24 15:12 10 MLS/HR Fentanyl Citrate 250 ml @ 2.5 mls/hr Q24H IV 09/22/24 19:45 09/29/24 18:24 30 MLS/HR Norepinephrine Bitartrate 32 mg/ Sodium Chloride 250 ml @ 0.938 mls/ hr Q24H IV 09/22/24 21:15 09/29/24 08:33 1.875 MLS/HR Dexmedetomidine HCl 400 mcg/ Dextrose 100 ml @ 4.915 mls/ hr [id number] IV 09/23/24 09:30 09/28/24 05:35 4.915 MLS/HR Enteral Nutritional Formula 1,000 ml 30ML/HR GT 09/23/24 12:30 09/29/24 15:44 1,000 ML Potassium Chloride/Sodium Chloride 1,000 ml @ 50 mls/hr Q20H IV 09/25/24 12:00 Cancel Vancomycin HCl 250 ml @ 250 mls/hr Q10H IV 09/27/24 10:00 09/29/24 11:53 250 MLS/HR Fluconazole 100 ml @ 100 mls/hr DAILY IV 09/28/24 10:00 09/29/24 09:52 100 MLS/HR Furosemide 40 mg DAILY IV 09/28/24 10:00 09/29/24 09:59 40 MG objective General: Intubated and sedated HEENT: Atraumatic,intubated Neck: No swelling Lungs: Equal air entry and clear to auscultation Cardiovascular: S1 S2 heard no murmur Abdomen: Soft nontender, no organomegaly, nondistended Neuro: sedated, unable to assess Psych: unable to assess laboratory and microbiology Laboratory Tests 09/29/24 16:32 09/29/24 03:09 Test 09/29/24 03:09 Range/Units Serum Glucose 118 H 74-106 mg/dL Assessment/Plan Patient is a 63-year-old female presented to the hospital with: failed extubation, reintubated Staphylococcus aureus pneumonia ( MRSA) Streptococcus Pneumoniae pneumonia Septic shock resolving bacteremia : coag neg staphylococccus, possible contamination Acute Respiratory Failure [requiring mechanical ventilation] severe hypoxia Metabolic acidosis FEDE Morbidly obese BMI = 40 PE history Recommendations: Reintubation on 09/22. family is against trach, plan for Cpap 09/22 respiratory culture is growing preliminary staphylococcus aureus Follow sensitivity Continue IV vancomycin [Restarted on ] I feel she is already received prolonged course of antibiotics for MRSA pneumonia. 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 Patient had difficult extubation in the past, 4 years ago when she was intubated for surgery as per records. 09/26, Wound culture preliminary: Coagulase Negative Staphylococcus Antibiotics review Cefepime 09/02- 09/06 Meropenem 09/03-09/05 Ceftriaxone 09/07-ongoing last given 09/18 Vancomycin 09/03- 09/11 Linezolid 09/11- ongoing - 09/17 last given Blood culture:co ag neg staph, i think its contaminated. Recent on 09/07 showed no growth Pulmonary on board for vent management full code prognosis guarded crit time 35 mins spent during the encounter. Thank you for consult and for giving an opportunity to take care of this patient. Dietary Evaluation Review Comments: 1. Consider EN/TPN if NPO >7days 2. Continue plan of care Expected Outcomes/Goals: 1. Pt will meet >75% of estimated needs within 2-3 days Plan discussed with: Other ANGELLA REYES MD Sep 29, 2024 19:01
--- NOTE | 2024-09-29 19:28 | DVHNC2 ---
Procedure - Therapeutic Bronchoscopy procedure note: Indications: right lower lobe atelectasis, Possible mucous plugging. Medicines: See [employer]CH[employer] notes. Complications: None Procedure: Patient medications and allergies reviewed. The risks and benefits of the procedure and the sedation options and risk were discussed with the patient's healthcare proxy. All questions were answered and informed consent was obtained. Patient identification and proposed procedure were verified prior to the procedure by the physician, and a nurse, and the respiratory therapist in ICU room. The heart rate, respiratory rate, oxygen saturations, blood pressure, adequacy of pulmonary ventilation, and response to care were monitored throughout the procedure. The physical status of the patient was reassessed after the procedure. After obtaining informed consent, the bronchoscope was introduced through the endotracheal tube and advanced into the trachea bronchial tree of both lungs. The procedure was accomplished without difficulty. The patient tolerated the procedure well. Findings: The trachea is in normal caliber. The teetee is sharp. The tracheobronchial tree of the right lung was examined to at least the first subsegmental level. The bronchial mucosa and anatomy in the right lung are normal. There are no endobronchial lesions. There was copious whitish secretions from right main stem bronchus onward throughout R6-R10. The left upper lobe, lingula, and left lower lobe were examined to at least the first subsegmental level. Bronchial mucosa and anatomy in the left upper lobe and lingula are normal. There were no endobronchial lesions. There were no secretions. There was no active bleeding at the completion of the procedure. Estimated blood loss: Less than 5 mL. Impression: Right lower lobe atelectasis due to mucous plugging Mucous plugging from R6-R10 Recommendation: Pulmonary toileting. Procedure codes: 03458, bronchoscopy, rigid and flexible, including fluoroscopic guidance, one performed; with bronchial endobronchial removal of mucous plugs, single or multiple sites SHAI SINGH MD Sep 29, 2024 19:28
--- NOTE | 2024-09-29 22:19 | DVHPN2 ---
Progress Note - Dictate Date Seen: Sep 29, 2024 Has the PT tested + for MRSA If YES, has PT been informed?: Yes Medical Necessity Reason Pt with a Central, PICC or Fol: Yes The following are medically ne: Betancourt Catheter Reason for betancourt catheter: Strict I&O Subjective Patient was seen and evaluated in follow up in the ICU. Patient is intubated on ventilator. FiO2 remains at 30%. ABG shows respiratory alkalosis, CO2 decreased from 38-32 and bicarb decreased from 25-22. Patient underwent CPAP trial, patient became tachypneic and CPAP trial was terminated. Patients family does not tracheostomy. K 3.2, CA 11.7. Chest x-ray shows bibasilar opacities which may reflect atelectasis or pneumonia. vital signs Vital Sign Date Time Temp Pulse Resp B/P (MAP) Pulse Ox O2 Delivery O2 Flow Rate FiO2 09/29/24 11:00 94 22 131/71 (91) 94 09/29/24 10:57 30 09/29/24 10:00 Mechanical Ventilator+ 09/29/24 08:15 98.3 98.3 Total Intake and Output 09/28/24 09/28/24 09/29/24 15:00 23:00 07:00 Intake Total 285.820 ml 530.458 ml 655.000 ml Output Total 1150 ml 450 ml Balance 285.820 ml -619.542 ml 205.000 ml medications Current Medications Medications Dose Ordered Sig/Acacia Route Start Time Stop Time Status Last Admin Dose Admin Acetaminophen 650 mg Q4HP PRN GT 09/03/24 10:00 09/03/24 10:21 650 MG Pantoprazole Sodium 40 mg DAILY IV 09/04/24 10:00 09/29/24 09:57 40 MG Sodium Chloride 10 ml QSHIFT@10,22 IV 09/13/24 22:00 09/29/24 10:01 10 ML Enoxaparin Sodium 100 mg Q12HR SC 09/19/24 22:00 09/29/24 09:59 100 MG Albuterol 2.5 mg Q6HPRN PRN NEB 09/21/24 19:00 09/28/24 10:26 2.5 MG Ipratropium [place] 0.5 mg Q6HPRN PRN NEB 09/21/24 19:00 09/28/24 10:26 0.5 MG Vancomycin HCl 0 ml @ 0 mls/hr UD IV 09/22/24 10:45 Levofloxacin 50 ml @ 50 mls/hr DAILY@1200,1300 IV 09/22/24 12:00 09/28/24 13:51 50 MLS/HR Midazolam HCl 50 ml @ 1 mls/hr Q24H IV 09/22/24 19:45 09/29/24 07:01 10 MLS/HR Fentanyl Citrate 250 ml @ 2.5 mls/hr Q24H IV 09/22/24 19:45 09/29/24 08:16 30 MLS/HR Norepinephrine Bitartrate 32 mg/ Sodium Chloride 250 ml @ 0.938 mls/ hr Q24H IV 09/22/24 21:15 09/29/24 08:33 1.875 MLS/HR Dexmedetomidine HCl 400 mcg/ Dextrose 100 ml @ 4.915 mls/ hr [id number] IV 09/23/24 09:30 09/28/24 05:35 4.915 MLS/HR Enteral Nutritional Formula 1,000 ml 30ML/HR GT 09/23/24 12:30 09/28/24 17:53 1,000 ML Potassium Chloride/Sodium Chloride 1,000 ml @ 50 mls/hr Q20H IV 09/25/24 12:00 Cancel Vancomycin HCl 250 ml @ 250 mls/hr Q10H IV 09/27/24 10:00 09/29/24 11:53 250 MLS/HR Fluconazole 100 ml @ 100 mls/hr DAILY IV 09/28/24 10:00 09/29/24 09:52 100 MLS/HR Furosemide 40 mg DAILY IV 09/28/24 10:00 09/29/24 09:59 40 MG Potassium Chloride 100 ml @ 50 mls/hr Q2H IV 09/29/24 05:15 09/29/24 13:14 09/29/24 10:25 50 MLS/HR objective GENERAL: Intubated on ventilator. Morbidly obese. LUNGS: Decreased breath sounds. CARDIOVASCULAR: Heart sounds are good. ABDOMEN: Soft. Morbid pannus limited physical palpation. SKIN: Multiple scars to abdomen. laboratory and microbiology Laboratory Tests 09/29/24 03:09 Test 09/29/24 03:09 Range/Units Serum Glucose 118 H 74-106 mg/dL Problem List Septic shock. Acute on chronic respiratory failure. NSTEMI type II secondary to above. Rule out structural heart disease. Prolonged QT interval. Morbid obesity, Class 3. Assessment/Plan Continued all current supportive medical care. DVT and GI prophylactics. Diuretics with Lasix. Nebulized breathing treatments. Vasopressors for hemodynamic support. Additional plan as per the hospital course. Critical care time of 45 minutes provided to include time spent evaluation of patient at bedside, when appropriate patient/family education for diagnosis, treatment plan, review of pertinent medical information and discussion of care with specialty providers and PCP. Mechanical ventilator parameters, treatment and adjustments have personally been reviewed by me and treatment plan by cobol engineer has also been reviewed. Dietary Evaluation Review Comments: 1. Consider EN/TPN if NPO >7days 2. Continue plan of care Expected Outcomes/Goals: 1. Pt will meet >75% of estimated needs within 2-3 days Plan discussed with: Other RELL STEWART MD Sep 29, 2024 12:50
[2024-09-30] VITALS (108 sets, daily range): BP systolic 96–130; BP diastolic 48–80; PULSE 65–85; RESP 14–25; TEMP 98.1–98.7; O2SAT 88–97
[2024-09-30 04:14] LABS: Hematocrit 32.7 % (36.0-46.0); Hemoglobin 10.9 g/dL (12.2-16.2); Mean Corpuscular Hemoglobin 29.7 pg (28.0-32.0); Mean Corpuscular Hgb Conc. 33.3 g/dL (32.0-36.0); Mean Corpuscular Volume 89.1 fL (80.0-100.0); Platelet Count (auto) 384 10^3/uL (140-450); Red Blood Cells 3.67 10^6/uL (4.0-5.20); Red Cell Distribution Width 14.6 % (11.8-14.3); White Blood Cell 7.5 10^3/uL (4.4-10.8)
[2024-09-30 04:20] LABS: Basophils % (manual) 0 (0.0-2.0); Blast Cells 0; Metamyelocytes % 0; Myelocytes % 0; Promyelocytes % 0; Reactive Lymphocytes 0
[2024-09-30 04:41] LABS: Alanine Aminotransferase 17 U/L (7-40); Albumin 3.3 g/dL (3.2-4.8); Anion Gap 9 (5-15); Aspartate Aminotransferase 14 U/L (13-40); BUN/Creatinine Ratio 10.4 (10.0-20.0); Blood Urea Nitrogen 10 mg/dL (9-23); Carbon Dioxide 28 mmol/L (20-31); Chloride 104 mmol/L (98-107); Glucose 89 mg/dL (74-106); Magnesium 1.9 mg/dL (1.6-2.6); Sodium 141 mmol/L (136-145)
[2024-09-30 04:42] LABS: Bilirubin, Total 0.4 mg/dL (0.2-1.0); Total Protein 6.2 g/dL (5.7-8.2)
[2024-09-30 04:43] LABS: Alkaline Phosphatase 116 U/L (46-116); Potassium 3.3 mmol/L (3.5-5.1)
--- NOTE | 2024-09-30 05:05 | DVH ---
CHEST RADIOGRAPH Indication: Follow up Technique: Single frontal view of the chest was obtained Comparison: XY CHEST PORTABLE on DOS: 09/29/24 FINDINGS: Lines and Tubes: The endotracheal tube terminates 3.6 cm above the teetee. Left PICC terminates in th e superior vena cava. The enteric tube terminates below the left hemidiaphragm and outside the field of view. Lungs: Bibasilar opacities. Pleura: Bilateral pleural effusion. No pneumothorax. Cardiomediastinal contours: Unremarkable Bones: No acute osseous abnormality. IMPRESSION: 1. Stable position of the support lines and tubes. 2. Bibasilar opacities which may reflect atelectasis or pneumonia. Bilateral pleural effusions.
[2024-09-30 05:40] LABS: Band Neutrophils % (manual) 1; Eosinophils % (manual) 14 (0-7); Lymphocytes % (manual) 23 (10.0-50.0); Monocytes % (manual) 21 (0-12); Platelet Estimate Adequate
--- NOTE | 2024-09-30 06:53 | DVHPNRES ---
Progress Note Date Seen: Sep 30, 2024 Resident Creating Document: NAN AMAYA RESIDENT Has the PT tested + for MRSA If YES, has PT been informed?: Yes Medical Necessity Reason Pt with a Central, PICC or Fol: Yes The following are medically ne: Betancourt Catheter Reason for betancourt catheter: Strict I&O Subjective Review of Systems This is a 63-year-old female patient with PMHx of PE in 2015, multiple abdominal surgeries including hernia and bowel obstruction, lasts hernia surgery [place] [address] Anaya, right distal ureteral calculus in February 2024, AKA, rib fractures, chronic nicotine dependence in polysubstance use including methamphetamine and cannabis presented to the ER with a chief complaint of shortness of breaths. She was successfully intubated on 09/02. Per patient's daughter, patient became short of breath and febrile at 102.7 F, and therefore they had to call [facility]. Patient was saturating at 70% and therefore the patient was brought to the ER. She was intubated once before 4 years back after abdominal surgery at [facility] where she experienced difficult extubation. Patient is a nonsmoker for more than 50 years, currently smokes more than 1 pack a day. 09/05 - 2 small granulating wounds on abdomen are suture granulomas, sutures removed by surgeon 09/28 - Patient seen and examined at the bedside. Overnight patient became bradycardic, pulse was 30s, telemetry reviewed rhythm was regular, likely sinus bradycardia, sedation was turned off and the patient's pulse went up to 58 beats per minute which is her baseline. No bowel movements overnight. Patient made around 950 cc of urine. 40 mEq of potassium supplement and 2 g magnesium supplemented. Continue IV vancomycin and levofloxacin. Id on board. CPAP trial ended early as the patient became tachypneic with RR of 46/min. Raised Jevity 1.2 to 40 mL/hour. 09/29 - patient is sedated and mechanically intubated. Overnight patient made 450 mL of urine. ABG in the a.m. shows respiratory alkalosis, CO2 decreased from 38-32 and bicarb decreased from 25-22. Corrected calcium 12.3. PTH level 19. Chest x-ray shows left-sided aeration is better than as compared to when on admission. Patient underwent CPAP trial which and that as the patient became tachypneic. Discussed the option of tracheostomy with patient's daughter Toshia, she said that the family and herself does not want tracheostomy and did not think that patient would want tracheostomy. Patient's family requesting for bronchoscopy. Dr. Luis consulted for bronchoscopy per patient's family request. Bronchoscopy performed 09/29 shows Right lower lobe atelectasis due to mucous plugging. Mucous plugging from R6-R10 K 2.9, 80 mEq replenished. Mag 1.7, 2 g replenished. 09/30-patient seen and examined at bedside. 625 mL of urine overnight. 2 L of urine during the day of 09/29. No bowel movement. Lactulose started. T-max of 99.6 overnight. DC Levaquin today started meropenem. Family meeting for over 50 minutes today. Family declined tracheostomy, per daughter the patient would be very upset on tracheostomy and it would be a burden on her. CPAP trial earlier next week. Objective vital signs Vital Sign Date Time Temp Pulse Resp B/P (MAP) Pulse Ox O2 Delivery O2 Flow Rate FiO2 09/30/24 04:12 73 22 111/60 (77) 93 35 09/30/24 04:00 Mechanical Ventilator+ 09/29/24 20:00 98.3 98.3 Total Intake and Output 09/29/24 09/29/24 09/30/24 15:00 23:00 07:00 Intake Total 844.040 ml 205.625 ml Output Total 2000 ml Balance 844.040 ml -1794.375 ml medications Current Medications Medications Dose Ordered Sig/Acacia Route Start Time Stop Time Status Last Admin Dose Admin Acetaminophen 650 mg Q4HP PRN GT 09/03/24 10:00 09/03/24 10:21 650 MG Pantoprazole Sodium 40 mg DAILY IV 09/04/24 10:00 09/29/24 09:57 40 MG Sodium Chloride 10 ml QSHIFT@, IV 09/13/24 22:00 09/29/24 23:08 10 ML Enoxaparin Sodium 100 mg Q12HR SC 09/19/24 22:00 09/29/24 23:09 100 MG Albuterol 2.5 mg Q6HPRN PRN NEB 09/21/24 19:00 09/28/24 10:26 2.5 MG Ipratropium [place] 0.5 mg Q6HPRN PRN NEB 09/21/24 19:00 09/28/24 10:26 0.5 MG Vancomycin HCl 0 ml @ 0 mls/hr UD IV 09/22/24 10:45 Levofloxacin 50 ml @ 50 mls/hr DAILY@1200,1300 IV 09/22/24 12:00 09/29/24 15:15 50 MLS/HR Midazolam HCl 50 ml @ 1 mls/hr Q24H IV 09/22/24 19:45 09/30/24 03:59 10 MLS/HR Fentanyl Citrate 250 ml @ 2.5 mls/hr Q24H IV 09/22/24 19:45 09/30/24 02:21 30 MLS/HR Norepinephrine Bitartrate 32 mg/ Sodium Chloride 250 ml @ 0.938 mls/ hr Q24H IV 09/22/24 21:15 09/29/24 08:33 1.875 MLS/HR Dexmedetomidine HCl 400 mcg/ Dextrose 100 ml @ 4.915 mls/ hr [id number] IV 09/23/24 09:30 09/28/24 05:35 4.915 MLS/HR Enteral Nutritional Formula 1,000 ml 30ML/HR GT 09/23/24 12:30 09/29/24 15:44 1,000 ML Potassium Chloride/Sodium Chloride 1,000 ml @ 50 mls/hr Q20H IV 09/25/24 12:00 Cancel Fluconazole 100 ml @ 100 mls/hr DAILY IV 09/28/24 10:00 09/29/24 09:52 100 MLS/HR Furosemide 40 mg DAILY IV 09/28/24 10:00 09/29/24 09:59 40 MG Examination Obese female patient lying in bed, in no acute distress General: Morbidly obese, afebrile, palor, mucosae are moist, positive light reflex Cardiovascular: Regular S1 and S2. No murmurs, gallops or rubs. No JVD elevation. Lower and upper extremity resolving edema noticed. Respiratory: Equal bilateral air entry, saturating 92% on FiO2 of 35%. Abdomen: Abdomen is soft, hypoactive bowel sounds, multiple ventral hernia seen, right-sided dressing removed, no drainage noticed. Stage II decubitus ulcer seen with overlying erythema but no drainage noticed. Midline scar seen. Genitourinary: Betancourt catheter otitis MSK/skin: Skin is dry and warm Neurological: Pupils are isocoric and reactive. laboratory and microbiology Laboratory Tests 09/30/24 03:31 Test 09/30/24 03:31 Range/Units Serum Glucose 89 74-106 mg/dL Microbiology Date/Time Source Procedure Growth Status 09/26/24 13:00 Abdomen Gram Stain - Final Complete 09/26/24 13:00 Wound Culture - Final Methicillin Resistant S.aureus Complete 09/24/24 10:59 Blood Blood Culture - Final NO GROWTH AFTER 5 DAYS OF INCUBATION. Complete 09/22/24 10:59 Sputum Gram Stain - Final Complete 09/22/24 10:59 Respiratory Culture - Final Methicillin Resistant S.aureus Presumptive Juju albicans Complete 09/11/24 00:00 Voided Urine Urine Culture - Final Complete 09/06/24 13:00 Vaginal Vaginal Culture - Final Enterococcus faecalis Methicillin Resistant S.aureus Complete Labs and/or images reviewed: Labs reviewed by me, Image(s) reviewed by me Problem List/Assessment/Plan Problem List/Assessment/Plan NEUROLOGY Acute metabolic encephalopathy likely due to septic shock - patient is sedated and mechanically ventilated, RASS -2 CARDIOVASCULAR Septic shock NSTEMI likely type 2 secondary to septic shock Probable right ventricular failure Prolonged QTC-resolved - cardiology recommended conservative management - echocardiogram shows dyskinesis of IVC, dilated RV and dilated RA. RV failure. Mild LVH and mild LV diastolic dysfunction with EF 65 % - blood culture 09/02 showed Staph hominis sensitive to vancomycin - repeat blood culture 09/11 showed Staphylococcus epidermidis sensitive to Cipro, clinda, linezolid, vancomycin - repeat blood culture 09/24 shows no growth - started furosemide 40 mg IV daily starting 09/27 RESPIRATORY Acute hypoxic respiratory failure secondary to probable community-acquired pneumonia due to MRSA and S pneumo Advanced COPD Chronic nicotine dependence - patient was intubated and mechanically ventilated starting 09/02 - bronchoscopy completed 09/07, results showed MRSA positive - repeat bronchoscopy 09/08, showed comparatively lesser secretions - sputum culture 09/02 showed MRSA, strep pneumo - bronchial wash specimen collected 09/07 showed MRSA - repeat respiratory culture 09/22 showed MRSA and presumtive Juju albicans - received cefepime from 09/02 to 09/06 - received meropenem 11/03 to 09/05, - received vancomycin from 09/03 to 09/11 - received ceftriaxone 2 g daily from 09/13 to 12/8 - received linezolid from 09/11 to 09/17 - continue albuterol and ipratropium q.6 hour p.r.n. - restarted vancomycin 09/27 and started IV meropenem 09/30 and started Diflucan daily starting 09/27 - discontinued Levaquin 09/30 - 09/28 and 09/29 CPAP trial ended early as the patient became tachypneic with RR of 46/min. - patient's family refusing tracheostomy - Dr. Luis consulted for bronchoscopy. Bronchoscopy performed 09/29 shows mucus plugs in the left upper lobe. GI History of multiple surgeries secondary to hernia and bowel obstruction Multiple ventral wall hernias Possible bowel obstruction Transaminitis secondary to septic shock Rhabdomyolysis likely secondary to immobilization Surgeon consulted-recommended conservative management, small varices could not be performed at this moment due to respiratory status of the patient Continue IV pantoprazole 40 mg daily Continue docusate /KIDNEY FEDE, likely secondary to VMN - resolved Probable pelvic inflammatory disease Hyponatremia-resolved Hypomagnesemia Hypercalcemia -corrected calcium 12, PTH 19 - creatinine downtrending - creatinine kinase downtrended from 8215 to 77 - nephrology consulted, last hemodialysis session was performed on 09/10 - urine bacterial culture 09/02 showed less than 04228 CFU of coagulase-negative Staphylococcus - vaginal culture 09/06 showed coagulase-negative Staphylococcus, Enterococcus faecalis, MRSA sensitive to daptomycin, linezolid, vancomycin, TMP SMX - patient had purulent vaginal discharge - 40 mEq potassium and 2 g of magnesium administered 09/28 ENDO Hypertriglyceridemia, TG 623 09/04, 320 at 09/15 Likely due to propofol, discontinued propofol Obesity - Continue Atorvastatin 40 mg ID Polysubstance use - Infectious disease consulted, continue management as above - Per patient's daughter, patient uses amphetamine, marijuana, smokes cigarettes - HIV testing negative - Hepatitis panel negative Hematology Lower extremity DVT - Ultrasound Doppler of lower extremities 08/15 shows nonocclusive DVT of the left popliteal vein - Continue Lovenox 100 mg b.i.d. LINES ETT, intubated on 09/02/2024 IV access Left upper arm PICC line, placed on 09/13 Drips: Versed 10 Levophed 4 Fentanyl 300 Nutrition Jevity 40 mL/hour Goals of care/advance care planning; FULL CODE; discussed on for 24 minutes. PUD prophylaxis; therapeutic Lovenox DVT prophylaxis; pantoprazole 40 mg IV daily Case discussed with Dr. Pinon Plan discussed with the patient's daughter over the bedside for more than 50 minutes, code status full code Critical care time including review of chart, family meeting at bedside with patient's son and daughter, and the nurse excluding procedures: 86 minutes Plan discussed with: Patient, Daughter (Over the bed), Son (Over the past) My Orders My Orders Orders - NAN AMAYA Procedure Category Date Status Time Communication Order ORDERS 09/29/24 Transmitted 12:16 *Consult CONS 09/29/24 Transmitted / 16:34 Chest Xray 1 View XY 09/30/24 Resulted 04:00 Abg W/ Co-Ox RT 09/30/24 Logged 04:00 Dietary Evaluation Review Comments: 1. Consider EN/TPN if NPO >7days 2. Continue plan of care Expected Outcomes/Goals: 1. Pt will meet >75% of estimated needs within 2-3 days Date of Service: Sep 30, 2024 Billing Provider: DANE PINON MD Common Visit Codes: 44210-TCDDBUPP CARE 30-74 MIN, 96154-QGSVLOIN CARE-EACH +30MIN NAN AMAYA Sep 30, 2024 06:53 DANE PINON MD Oct 02, 2024 16:44
[2024-09-30] MEDS ORDERED: ERGOCALCIFEROL 50,000 UNIT(1.25MG) CAP PO SCH (07:45)
[2024-09-30 07:56] LABS: Base Excess 0.5 mmol/L (-2.0-3.0)
[2024-09-30] MEDS: POTASSIUM CHL 20MEQ/100ML 100 ML IV SCH (09:26)
[2024-09-30] MEDS: LACTULOSE 20Gm/30ML SOLN PO SCH (09:55)
[2024-09-30] MEDS: MEROPENEM 1GM IVPB 50 ML IV ONE (11:53)
[2024-09-30] MEDS: MEROPENEM 1GM IVPB 50 ML IV SCH (14:14)
[2024-09-30] MEDS: NOREPINEPHRINE 8 MG/250ML KIT 250 ML IV SCH (15:52)
--- NOTE | 2024-09-30 22:52 | DVHPN2 ---
Progress Note - Dictate Date Seen: Sep 30, 2024 Has the PT tested + for MRSA If YES, has PT been informed?: Yes Medical Necessity Reason Pt with a Central, PICC or Fol: Yes The following are medically ne: Betancourt Catheter Reason for betancourt catheter: Strict I&O Subjective Patient was seen and evaluated in follow up in the ICU. Patient is intubated and sedated on ventilator. FiO2 was increased to 35%. Patient is s/p bedside bronchoscopy. K 3.3, CA 12. Chest x-ray shows stable position of the support lines and tubes, bibasilar opacities which may reflect atelectasis or pneumonia, bilateral pleural effusions. vital signs Vital Sign Date Time Temp Pulse Resp B/P (MAP) Pulse Ox O2 Delivery O2 Flow Rate FiO2 09/30/24 09:54 108/64 09/30/24 09:49 73 22 94 35 09/30/24 06:00 Mechanical Ventilator+ 09/30/24 04:00 98.7 98.7 Total Intake and Output 09/29/24 09/29/24 09/30/24 15:00 23:00 07:00 Intake Total 844.040 ml 415.000 ml 394.000 ml Output Total 2000 ml 625 ml Balance 844.040 ml -1585.000 ml -231.000 ml medications Current Medications Medications Dose Ordered Sig/Acacia Route Start Time Stop Time Status Last Admin Dose Admin Pantoprazole Sodium 40 mg DAILY IV 09/04/24 10:00 09/30/24 09:53 40 MG Sodium Chloride 10 ml QSHIFT@10,22 IV 09/13/24 22:00 09/30/24 09:56 10 ML Enoxaparin Sodium 100 mg Q12HR SC 09/19/24 22:00 09/30/24 09:55 100 MG Albuterol 2.5 mg Q6HPRN PRN NEB 09/21/24 19:00 09/28/24 10:26 2.5 MG Ipratropium [place] 0.5 mg Q6HPRN PRN NEB 09/21/24 19:00 09/28/24 10:26 0.5 MG Vancomycin HCl 0 ml @ 0 mls/hr UD IV 09/22/24 10:45 Midazolam HCl 50 ml @ 1 mls/hr Q24H IV 09/22/24 19:45 09/30/24 09:11 10 MLS/HR Fentanyl Citrate 250 ml @ 2.5 mls/hr Q24H IV 09/22/24 19:45 09/30/24 10:03 30 MLS/HR Norepinephrine Bitartrate 32 mg/ Sodium Chloride 250 ml @ 0.938 mls/ hr Q24H IV 09/22/24 21:15 09/29/24 08:33 1.875 MLS/HR Enteral Nutritional Formula 1,000 ml 30ML/HR GT 09/23/24 12:30 09/29/24 15:44 1,000 ML Potassium Chloride/Sodium Chloride 1,000 ml @ 50 mls/hr Q20H IV 09/25/24 12:00 Cancel Fluconazole 100 ml @ 100 mls/hr DAILY IV 09/28/24 10:00 09/30/24 09:54 100 MLS/HR Furosemide 40 mg DAILY IV 09/28/24 10:00 09/30/24 09:54 40 MG Potassium Chloride 100 ml @ 50 mls/hr Q2H IV 09/30/24 08:15 09/30/24 12:14 09/30/24 09:57 50 MLS/HR Lactulose 30 ml DAILY PO 09/30/24 08:15 09/30/24 09:55 30 ML Acetaminophen 650 mg Q6HP PRN GT 09/30/24 11:45 Meropenem 50 ml @ 17 mls/hr Q8HR IV 09/30/24 14:00 UNV objective GENERAL: Intubated on ventilator. Morbidly obese. LUNGS: Decreased breath sounds. CARDIOVASCULAR: Heart sounds are good. ABDOMEN: Soft. Morbid pannus limited physical palpation. SKIN: Multiple scars to abdomen. laboratory and microbiology Laboratory Tests 09/30/24 03:31 Test 09/30/24 03:31 Range/Units Serum Glucose 89 74-106 mg/dL Problem List Septic shock. Acute on chronic respiratory failure. NSTEMI type II secondary to above. Rule out structural heart disease. Prolonged QT interval. Morbid obesity, Class 3. Assessment/Plan Continued all current supportive medical care. DVT and GI prophylactics. Diuretics with Lasix. Nebulized breathing treatments. Vasopressors for hemodynamic support. Additional plan as per the hospital course. Critical care time of 45 minutes provided to include time spent evaluation of patient at bedside, when appropriate patient/family education for diagnosis, treatment plan, review of pertinent medical information and discussion of care with specialty providers and PCP. Mechanical ventilator parameters, treatment and adjustments have personally been reviewed by me and treatment plan by solder leveler printed circuit boards has also been reviewed. Dietary Evaluation Review Comments: 1. Consider EN/TPN if NPO >7days 2. Continue plan of care Expected Outcomes/Goals: 1. Pt will meet >75% of estimated needs within 2-3 days Plan discussed with: Other RELL STEWART MD Sep 30, 2024 11:59
[2024-10-01] VITALS (110 sets, daily range): BP systolic 82–131; BP diastolic 40–79; PULSE 73–93; RESP 19–30; TEMP 98–99; O2SAT 90–99
[2024-10-01 04:19] LABS: Basophils # (auto) 0.1 10 ^3/uL (0-0.2); Eosinophils # (auto) 0.6 10 ^3/uL (0-0.8); Lymphocytes # (auto) 1.8 10 ^3/uL (0.4-5.4); Monocytes # (auto) 1.2 10 ^3/uL (0-1.3); Neutrophils # (auto) 4.3 10 ^3/uL (1.6-8.6); Nucleated Red Blood Cells % 0.1 %
[2024-10-01 04:21] LABS: Basophils % (auto) 1.3 % (0.0-2.0); Eosinophils % (auto) 7.7 % (0.0-7.0); Hematocrit 36.1 % (36.0-46.0); Hemoglobin 12.1 g/dL (12.2-16.2); Lymphocytes % (auto) 22.3 % (10.0-50.0); Mean Corpuscular Hemoglobin 29.4 pg (28.0-32.0); Mean Corpuscular Hgb Conc. 33.5 g/dL (32.0-36.0); Mean Corpuscular Volume 87.9 fL (80.0-100.0); Monocytes % (auto) 14.9 % (0.0-12.0); Neutrophils % (auto) 53.8 % (37.0-80.0); Platelet Count (auto) 455 10^3/uL (140-450); Red Cell Distribution Width 14.4 % (11.8-14.3)
[2024-10-01 04:23] LABS: Alanine Aminotransferase 18 U/L (7-40); Anion Gap 9 (5-15); BUN/Creatinine Ratio 10.3 (10.0-20.0); Blood Urea Nitrogen 11 mg/dL (9-23); Carbon Dioxide 29 mmol/L (20-31); Chloride 105 mmol/L (98-107); Glucose 100 mg/dL (74-106); Sodium 143 mmol/L (136-145)
[2024-10-01 04:24] LABS: Magnesium 1.9 mg/dL (1.6-2.6)
[2024-10-01 04:25] LABS: Albumin 3.6 g/dL (3.2-4.8); Aspartate Aminotransferase 18 U/L (13-40); Bilirubin, Total 0.3 mg/dL (0.2-1.0); Total Protein 6.5 g/dL (5.7-8.2)
[2024-10-01 04:36] LABS: Alkaline Phosphatase 126 U/L (46-116); Calcium 12.5 mg/dL (8.7-10.4); Potassium 3.4 mmol/L (3.5-5.1)
--- NOTE | 2024-10-01 05:21 | DVH ---
CHEST RADIOGRAPH Indication: f/u Technique: Single frontal view of the chest was obtained COMPARISON: XY CHEST XRAY 1 VIEW on DOS: 09/30/24, XY CHEST XRAY 1 VIEW on DOS: 09/29/24, XY CHEST PO RTABLE on DOS: 09/28/24, XY CHEST XRAY 1 VIEW on DOS: 09/27/24, XY CHEST PORTABLE on DOS: 09/26/24 FINDINGS: Lines and Tubes: Endotracheal tube and enteric catheter in satisfactory position. Lungs: Mild congestion. Pleura: Small left pleural effusion. No pneumothorax. Cardiomediastinal contours: Unremarkable Bones: Unremarkable IMPRESSION: Lines and tubes in satisfactory position. No significant interval change.
[2024-10-01 07:59] LABS: Base Excess 2.3 mmol/L (-2.0-3.0)
[2024-10-01] MEDS: POTASSIUM CHL 20MEQ/100ML 100 ML IV SCH (08:40)
[2024-10-01] MEDS: VANCOMYCIN 1GM/250ML KIT 250 ML IV ONE (13:19)
--- NOTE | 2024-10-01 13:20 | DVHPN2 ---
Progress Note - Dictate Date Seen: Oct 01, 2024 Has the PT tested + for MRSA If YES, has PT been informed?: Yes Medical Necessity Reason Pt with a Central, PICC or Fol: Yes The following are medically ne: Betancourt Catheter Reason for betancourt catheter: Strict I&O Subjective Patient was seen and evaluated in follow up in the ICU. Patient is intubated and sedated on ventilator. 35% FiO2. Patient received abdominal wound care this am. Patient's last noted BM was on 09/23. Per bedside RN, family meeting was held yesterday evening and the patient's family are considering tracheostomy over the weekend and will follow up next week. 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 vital signs Vital Sign Date Time Temp Pulse Resp B/P (MAP) Pulse Ox O2 Delivery O2 Flow Rate FiO2 10/01/24 09:59 78 22 103/64 (77) 92 35 10/01/24 06:00 Mechanical Ventilator+ 10/01/24 04:00 98.1 98.1 Total Intake and Output 09/30/24 09/30/24 10/01/24 15:00 23:00 07:00 Intake Total 1606.250 ml 530.0 ml 660.0 ml Output Total 2750 ml 550 ml Balance 1606.250 ml -2220.0 ml 110.0 ml medications Current Medications Medications Dose Ordered Sig/Acacia Route Start Time Stop Time Status Last Admin Dose Admin Pantoprazole Sodium 40 mg DAILY IV 09/04/24 10:00 09/30/24 09:53 40 MG Sodium Chloride 10 ml QSHIFT@10,22 IV 09/13/24 22:00 09/30/24 22:00 10 ML Albuterol 2.5 mg Q6HPRN PRN NEB 09/21/24 19:00 09/28/24 10:26 2.5 MG Ipratropium [place] 0.5 mg Q6HPRN PRN NEB 09/21/24 19:00 09/28/24 10:26 0.5 MG Vancomycin HCl 0 ml @ 0 mls/hr UD IV 09/22/24 10:45 Midazolam HCl 50 ml @ 1 mls/hr Q24H IV 09/22/24 19:45 10/01/24 10:29 10 MLS/HR Fentanyl Citrate 250 ml @ 2.5 mls/hr Q24H IV 09/22/24 19:45 10/01/24 10:28 30 MLS/HR Enteral Nutritional Formula 1,000 ml 30ML/HR GT 09/23/24 12:30 09/30/24 16:31 1,000 ML Potassium Chloride/Sodium Chloride 1,000 ml @ 50 mls/hr Q20H IV 09/25/24 12:00 Cancel Fluconazole 100 ml @ 100 mls/hr DAILY IV 09/28/24 10:00 09/30/24 09:54 100 MLS/HR Furosemide 40 mg DAILY IV 09/28/24 10:00 09/30/24 09:54 40 MG Lactulose 30 ml DAILY PO 09/30/24 08:15 09/30/24 09:55 30 ML Acetaminophen 650 mg Q6HP PRN GT 09/30/24 11:45 Meropenem 50 ml @ 17 mls/hr Q8HR IV 09/30/24 14:00 10/01/24 05:23 17 MLS/HR Norepinephrine Bitartrate 250 ml @ 3.75 mls/hr Q24H IV 09/30/24 15:15 09/30/24 15:52 7.5 MLS/HR Potassium Chloride 100 ml @ 50 mls/hr Q2H IV 10/01/24 07:15 10/01/24 11:14 10/01/24 08:40 50 MLS/HR objective GENERAL: Intubated on ventilator. Morbidly obese. LUNGS: Decreased breath sounds. CARDIOVASCULAR: Heart sounds are good. ABDOMEN: Soft. Morbid pannus limited physical palpation. SKIN: Multiple scars to abdomen. laboratory and microbiology Laboratory Tests 10/01/24 03:08 Test 10/01/24 03:08 Range/Units Serum Glucose 100 74-106 mg/dL Problem List Septic shock. Acute on chronic respiratory failure. NSTEMI type II secondary to above. Rule out structural heart disease. Prolonged QT interval. Morbid obesity, Class 3. Assessment/Plan Continued all current supportive medical care. DVT and GI prophylactics. Diuretics with Lasix. Nebulized breathing treatments. Vasopressors for hemodynamic support. Additional plan as per the hospital course. Critical care time of 45 minutes provided to include time spent evaluation of patient at bedside, when appropriate patient/family education for diagnosis, treatment plan, review of pertinent medical information and discussion of care with specialty providers and PCP. Mechanical ventilator parameters, treatment and adjustments have personally been reviewed by me and treatment plan by oyster farmer has also been reviewed. Dietary Evaluation Review Comments: 1. Consider EN/TPN if NPO >7days 2. Continue plan of care Expected Outcomes/Goals: 1. Pt will meet >75% of estimated needs within 2-3 days Plan discussed with: Other RELL STEWART MD Oct 01, 2024 11:14
[2024-10-01] MEDS: LACTULOSE 20Gm/30ML SOLN PO SCH (14:30)
[2024-10-01] MEDS: METOCLOPRAMIDE HCL 5MG/ml INJ 2ml VIAL IV SCH (17:55)
--- NOTE | 2024-10-01 20:07 | DVHPN2 ---
Progress Note - Dictate Date Seen: Sep 30, 2024 Has the PT tested + for MRSA If YES, has PT been informed?: Yes Medical Necessity Reason Pt with a Central, PICC or Fol: Yes The following are medically ne: Betancourt Catheter Reason for betancourt catheter: Strict I&O Subjective Late entry Patient is sedated and mechanically ventilated. FiO2 was increased to 35%. Bronchoscopy performed 09/29 shows mucus plugs in the left upper lobe. Pathology report from lung biopsy pending. Family declined tracheostomy, per daughter the patient would be very upset on tracheostomy. CPAP trial earlier next week. 09/26 Chest x-ray showed: Lines and tubes in satisfactory position. No significant interval change. 09/30 Chest x-ray shows stable position of the support lines and tubes, bibasilar opacities which may reflect atelectasis or pneumonia, bilateral pleural effusions. vital signs Vital Sign Date Time Temp Pulse Resp B/P (MAP) Pulse Ox O2 Delivery O2 Flow Rate FiO2 10/01/24 19:00 87 22 94/57 (69) 90 10/01/24 18:33 35 10/01/24 18:00 Mechanical Ventilator+ 10/01/24 17:00 98.4 98.4 Total Intake and Output 09/30/24 09/30/24 10/01/24 15:00 23:00 07:00 Intake Total 1606.250 ml 530.0 ml 660.0 ml Output Total 2750 ml 550 ml Balance 1606.250 ml -2220.0 ml 110.0 ml medications Current Medications Medications Dose Ordered Sig/Acacia Route Start Time Stop Time Status Last Admin Dose Admin Pantoprazole Sodium 40 mg DAILY IV 09/04/24 10:00 10/01/24 11:18 40 MG Sodium Chloride 10 ml QSHIFT@10,22 IV 09/13/24 22:00 10/01/24 10:00 10 ML Albuterol 2.5 mg Q6HPRN PRN NEB 09/21/24 19:00 09/28/24 10:26 2.5 MG Ipratropium [place] 0.5 mg Q6HPRN PRN NEB 09/21/24 19:00 09/28/24 10:26 0.5 MG Vancomycin HCl 0 ml @ 0 mls/hr UD IV 09/22/24 10:45 Midazolam HCl 50 ml @ 1 mls/hr Q24H IV 09/22/24 19:45 10/01/24 15:28 9 MLS/HR Fentanyl Citrate 250 ml @ 2.5 mls/hr Q24H IV 09/22/24 19:45 10/01/24 18:05 30 MLS/HR Enteral Nutritional Formula 1,000 ml 30ML/HR GT 09/23/24 12:30 09/30/24 16:31 1,000 ML Potassium Chloride/Sodium Chloride 1,000 ml @ 50 mls/hr Q20H IV 09/25/24 12:00 Cancel Furosemide 40 mg DAILY IV 09/28/24 10:00 10/01/24 11:19 40 MG Acetaminophen 650 mg Q6HP PRN GT 09/30/24 11:45 Meropenem 50 ml @ 17 mls/hr Q8HR IV 09/30/24 14:00 10/01/24 14:39 17 MLS/HR Norepinephrine Bitartrate 250 ml @ 3.75 mls/hr Q24H IV 09/30/24 15:15 09/30/24 15:52 7.5 MLS/HR Lactulose 30 ml BID PO 10/01/24 14:30 Sennosides 8.6 mg HS PO 10/01/24 22:00 Metoclopramide HCl 10 mg TID IV 10/01/24 18:00 10/01/24 17:55 10 MG objective General: Intubated and sedated HEENT: Atraumatic,intubated Neck: No swelling Lungs: Equal air entry and clear to auscultation Cardiovascular: S1 S2 heard no murmur Abdomen: Soft nontender, no organomegaly, nondistended Neuro: sedated, unable to assess Psych: unable to assess laboratory and microbiology Laboratory Tests 10/01/24 03:08 Test 10/01/24 03:08 Range/Units Serum Glucose 100 74-106 mg/dL Assessment/Plan Recommendations: Patient is a 63-year-old female presented to the hospital with: Staphylococcus aureus pneumonia ( MRSA) Streptococcus Pneumoniae pneumonia Septic shock resolving bacteremia : coag neg staphylococccus, possible contamination Acute Respiratory Failure [requiring mechanical ventilation] severe hypoxia Metabolic acidosis FEDE Morbidly obese BMI = 40 PE history Recommendations: Reintubation on 09/22. 09/22 trach culture is growing preliminary staphylococcus aureus Follow sensitivity Continue IV vancomycin ( restarted on 09/27 ) Discontinued Levaquin 09/30 - started meropenem on 09/30 09/26, Wound culture preliminary: Coagulase Negative Staphylococcus Antibiotics review (restarted ) Vancomycin 09/03- 09/11 Linezolid 09/11- ongoing - 09/17 last given Blood culture:co ag neg staph, i think its contaminated. Recent on 09/07 showed no growth Pulmonary on board for vent management full code prognosis guarded crit time 35 mins spent during the encounter. Thank you for consult and for giving an opportunity to take care of this patient. Dietary Evaluation Review Comments: 1. Consider EN/TPN if NPO >7days 2. Continue plan of care Expected Outcomes/Goals: 1. Pt will meet >75% of estimated needs within 2-3 days ANGELLA REYES MD Oct 01, 2024 20:07
--- NOTE | 2024-10-01 20:20 | DVHPN2 ---
Progress Note - Dictate Date Seen: Oct 01, 2024 Has the PT tested + for MRSA If YES, has PT been informed?: Yes Medical Necessity Reason Pt with a Central, PICC or Fol: Yes The following are medically ne: Betancourt Catheter Reason for betancourt catheter: Strict I&O Subjective Patient is sedated and mechanically ventilated. FiO2 was increased to 35%. Bronchoscopy performed 09/29 shows mucus plugs in the left upper lobe. Pathology report from lung biopsy pending. Patient received abdominal wound care this am. Patient's last noted BM was on 09/23. Per bedside RN, family meeting was held yesterday evening and the patient's family are considering tracheostomy over the weekend and will follow up next week. CPAP trial earlier next week. 09/26 Chest x-ray showed: Lines and tubes in satisfactory position. No significant interval change. 09/30 Chest x-ray shows stable position of the support lines and tubes, bibasilar opacities which may reflect atelectasis or pneumonia, bilateral pleural effusions. 10/01 reviewed ; Lines and tubes in satisfactory position. No significant interval change. vital signs Vital Sign Date Time Temp Pulse Resp B/P (MAP) Pulse Ox O2 Delivery O2 Flow Rate FiO2 10/01/24 19:00 87 22 94/57 (69) 90 10/01/24 18:33 35 10/01/24 18:00 Mechanical Ventilator+ 10/01/24 17:00 98.4 98.4 Total Intake and Output 09/30/24 09/30/24 10/01/24 15:00 23:00 07:00 Intake Total 1606.250 ml 530.0 ml 660.0 ml Output Total 2750 ml 550 ml Balance 1606.250 ml -2220.0 ml 110.0 ml medications Current Medications Medications Dose Ordered Sig/Acacia Route Start Time Stop Time Status Last Admin Dose Admin Pantoprazole Sodium 40 mg DAILY IV 09/04/24 10:00 10/01/24 11:18 40 MG Sodium Chloride 10 ml QSHIFT@10,22 IV 09/13/24 22:00 10/01/24 10:00 10 ML Albuterol 2.5 mg Q6HPRN PRN NEB 09/21/24 19:00 09/28/24 10:26 2.5 MG Ipratropium Bonita 0.5 mg Q6HPRN PRN NEB 09/21/24:00 09/28/24 10:26 0.5 MG Vancomycin HCl 0 ml @ 0 mls/hr UD IV 09/22/24 10:45 Midazolam HCl 50 ml @ 1 mls/hr Q24H IV 09/22/24 19:45 10/01/24 15:28 9 MLS/HR Fentanyl Citrate 250 ml @ 2.5 mls/hr Q24H IV 09/22/24 19:45 10/01/24 18:05 30 MLS/HR Enteral Nutritional Formula 1,000 ml 30ML/HR GT 09/23/24 12:30 09/30/24 16:31 1,000 ML Potassium Chloride/Sodium Chloride 1,000 ml @ 50 mls/hr Q20H IV 09/25/24 12:00 Cancel Furosemide 40 mg DAILY IV 09/28/24 10:00 10/01/24 11:19 40 MG Acetaminophen 650 mg Q6HP PRN GT 09/30/24 11:45 Meropenem 50 ml @ 17 mls/hr Q8HR IV 09/30/24 14:00 10/01/24 14:39 17 MLS/HR Norepinephrine Bitartrate 250 ml @ 3.75 mls/hr Q24H IV 09/30/24 15:15 09/30/24 15:52 7.5 MLS/HR Lactulose 30 ml BID PO 10/01/24 14:30 Sennosides 8.6 mg HS PO 10/01/24 22:00 Metoclopramide HCl 10 mg TID IV 10/01/24 18:00 10/01/24 17:55 10 MG objective General: Intubated and sedated HEENT: Atraumatic,intubated Neck: No swelling Lungs: Equal air entry and clear to auscultation Cardiovascular: S1 S2 heard no murmur Abdomen: Soft nontender, no organomegaly, nondistended Neuro: sedated, unable to assess Psych: unable to assess laboratory and microbiology Laboratory Tests 10/01/24 03:08 Test 10/01/24 03:08 Range/Units Serum Glucose 100 74-106 mg/dL Assessment/Plan Recommendations: Patient is a 63-year-old female presented to the hospital with: Staphylococcus aureus pneumonia ( MRSA) Streptococcus Pneumoniae pneumonia Septic shock resolving bacteremia : coag neg staphylococccus, possible contamination Acute Respiratory Failure [requiring mechanical ventilation] severe hypoxia Metabolic acidosis FEDE Morbidly obese BMI = 40 PE history Recommendations: Reintubation on 09/22. 09/22 trach culture is growing preliminary staphylococcus aureus Follow sensitivity Continue IV vancomycin ( restarted on 09/27 ) Discontinued Levaquin 09/30 - started meropenem on 09/30 09/26, Wound culture preliminary: Coagulase Negative Staphylococcus Antibiotics review (restarted ) Vancomycin 09/03- 09/11 Linezolid 09/11- ongoing - 09/17 last given Blood culture:co ag neg staph, i think its contaminated. Recent on 09/07 showed no growth Pulmonary on board for vent management full code prognosis guarded crit time 35 mins spent during the encounter. Thank you for consult and for giving an opportunity to take care of this patient. Dietary Evaluation Review Comments: 1. Consider EN/TPN if NPO >7days 2. Continue plan of care Expected Outcomes/Goals: 1. Pt will meet >75% of estimated needs within 2-3 days ANGELLA REYES MD Oct 01, 2024 20:20
--- NOTE | 2024-10-01 20:41 | DVHPNRES ---
Progress Note Date Seen: Oct 01, 2024 Resident Creating Document: NAN AMAYA RESIDENT Has the PT tested + for MRSA If YES, has PT been informed?: Yes Medical Necessity Reason Pt with a Central, PICC or Fol: Yes The following are medically ne: PICC Line, Betancourt Catheter Reason for betancourt catheter: Strict I&O Subjective Review of Systems This is a 63-year-old female patient with PMHx of PE in 2015, multiple abdominal surgeries including hernia and bowel obstruction, lasts hernia surgery [place] [address] Anaya, right distal ureteral calculus in February 2024, AKA, rib fractures, chronic nicotine dependence in polysubstance use including methamphetamine and cannabis presented to the ER with a chief complaint of shortness of breaths. She was successfully intubated on 09/02. Per patient's daughter, patient became short of breath and febrile at 102.7 F, and therefore they had to call [facility]. Patient was saturating at 70% and therefore the patient was brought to the ER. She was intubated once before 4 years back after abdominal surgery at [facility] where she experienced difficult extubation. Patient is a nonsmoker for more than 50 years, currently smokes more than 1 pack a day. 09/05 - 2 small granulating wounds on abdomen are suture granulomas, sutures removed by surgeon 09/28 - Patient seen and examined at the bedside. Overnight patient became bradycardic, pulse was 30s, telemetry reviewed rhythm was regular, likely sinus bradycardia, sedation was turned off and the patient's pulse went up to 58 beats per minute which is her baseline. No bowel movements overnight. Patient made around 950 cc of urine. 40 mEq of potassium supplement and 2 g magnesium supplemented. Continue IV vancomycin and levofloxacin. Id on board. CPAP trial ended early as the patient became tachypneic with RR of 46/min. Raised Jevity 1.2 to 40 mL/hour. 09/29 - patient is sedated and mechanically intubated. Overnight patient made 450 mL of urine. ABG in the a.m. shows respiratory alkalosis, CO2 decreased from 38-32 and bicarb decreased from 25-22. Corrected calcium 12.3. PTH level 19. Chest x-ray shows left-sided aeration is better than as compared to when on admission. Patient underwent CPAP trial which and that as the patient became tachypneic. Discussed the option of tracheostomy with patient's daughter Toshia, she said that the family and herself does not want tracheostomy and did not think that patient would want tracheostomy. Patient's family requesting for bronchoscopy. Dr. Luis consulted for bronchoscopy per patient's family request. Bronchoscopy performed 09/29 shows Right lower lobe atelectasis due to mucous plugging. Mucous plugging from R6-R10 K 2.9, 80 mEq replenished. Mag 1.7, 2 g replenished. 09/30-patient seen and examined at bedside. 625 mL of urine overnight. 2 L of urine during the day of 09/29. No bowel movement. Lactulose started. T-max of 99.6 overnight. DC Levaquin today started meropenem. Family meeting for over 50 minutes today. Family declined tracheostomy, per daughter the patient would be very upset on tracheostomy and it would be a burden on her. CPAP trial earlier next week. 10/01 - patient seen and examined at bedside. DC Diflucan. Started Reglan IV 10 mg TID, started Colace and senna, lactulose increased to b.i.d.. Chest x-ray shows worsening pulmonary vascular congestion and bilateral effusion. Last bowel movement was on 23 September. Cumulative intake output less 4 L. ABG shows metabolic alkalosis with respiratory acidosis. Consider Diamox if patient becomes more alkalotic. Objective vital signs Vital Sign Date Time Temp Pulse Resp B/P (MAP) Pulse Ox O2 Delivery O2 Flow Rate FiO2 10/01/24 20:00 22 91 Mechanical Ventilator+ 35 35 10/01/24 19:00 87 94/57 (69) 10/01/24 17:00 98.4 98.4 Total Intake and Output 09/30/24 09/30/24 10/01/24 15:00 23:00 07:00 Intake Total 1606.250 ml 530.0 ml 660.0 ml Output Total 2750 ml 550 ml Balance 1606.250 ml -2220.0 ml 110.0 ml medications Current Medications Medications Dose Ordered Sig/Acacia Route Start Time Stop Time Status Last Admin Dose Admin Pantoprazole Sodium 40 mg DAILY IV 09/04/24 10:00 10/01/24 11:18 40 MG Sodium Chloride 10 ml QSHIFT@ IV 09/13/24 22:00 10/01/24 10:00 10 ML Albuterol 2.5 mg Q6HPRN PRN NEB 09/21/24 19:00 09/28/24 10:26 2.5 MG Ipratropium Tofte 0.5 mg Q6HPRN PRN NEB 09/21/24 19:00 09/28/24 10:26 0.5 MG Vancomycin HCl 0 ml @ 0 mls/hr UD IV 09/22/24 10:45 Midazolam HCl 50 ml @ 1 mls/hr Q24H IV 09/22/24 19:45 10/01/24 15:28 9 MLS/HR Fentanyl Citrate 250 ml @ 2.5 mls/hr Q24H IV 09/22/24 19:45 10/01/24 18:05 30 MLS/HR Enteral Nutritional Formula 1,000 ml 30ML/HR GT 09/23/24 12:30 09/30/24 16:31 1,000 ML Potassium Chloride/Sodium Chloride 1,000 ml @ 50 mls/hr Q20H IV 09/25/24 12:00 Cancel Furosemide 40 mg DAILY IV 09/28/24 10:00 10/01/24 11:19 40 MG Acetaminophen 650 mg Q6HP PRN GT 09/30/24 11:45 Meropenem 50 ml @ 17 mls/hr Q8HR IV 09/30/24 14:00 10/01/24 14:39 17 MLS/HR Norepinephrine Bitartrate 250 ml @ 3.75 mls/hr Q24H IV 09/30/24 15:15 09/30/24 15:52 7.5 MLS/HR Lactulose 30 ml BID PO 10/01/24 14:30 Sennosides 8.6 mg HS PO 10/01/24 22:00 Metoclopramide HCl 10 mg TID IV 10/01/24 18:00 10/01/24 17:55 10 MG Examination Obese female patient lying in bed, in no acute distress RASS -5 General: Morbidly obese, afebrile, palor, mucosae are moist, positive light reflex Cardiovascular: Regular S1 and S2. No murmurs, gallops or rubs. No JVD elevation. Lower and upper extremity resolving edema noticed. Respiratory: Equal bilateral air entry, saturating 92% on FiO2 of 35%. Abdomen: Abdomen is soft, hypoactive bowel sounds, multiple ventral hernia seen, right-sided dressing removed, no drainage noticed. Stage II decubitus ulcer seen with overlying erythema but no drainage noticed. Midline scar seen. Genitourinary: Betancourt catheter seen MSK/skin: Skin is dry and warm Neurological: Pupils are isocoric and reactive. laboratory and microbiology Laboratory Tests 10/01/24 03:08 Test 10/01/24 03:08 Range/Units Serum Glucose 100 74-106 mg/dL Microbiology Date/Time Source Procedure Growth Status 09/26/24 13:00 Abdomen Gram Stain - Final Complete 09/26/24 13:00 Wound Culture - Final Methicillin Resistant S.aureus Complete 09/24/24 10:59 Blood Blood Culture - Final NO GROWTH AFTER 5 DAYS OF INCUBATION. Complete 09/22/24 10:59 Sputum Gram Stain - Final Complete 09/22/24 10:59 Respiratory Culture - Final Methicillin Resistant S.aureus Presumptive Juju albicans Complete 09/11/24 00:00 Voided Urine Urine Culture - Final Complete 09/06/24 13:00 Vaginal Vaginal Culture - Final Enterococcus faecalis Methicillin Resistant S.aureus Complete Labs and/or images reviewed: Labs reviewed by me, Image(s) reviewed by me Problem List/Assessment/Plan Problem List/Assessment/Plan NEUROLOGY Acute metabolic encephalopathy likely due to septic shock - patient is sedated and mechanically ventilated, RASS -2 CARDIOVASCULAR Septic shock NSTEMI likely type 2 secondary to septic shock Probable right ventricular failure Prolonged QTC-resolved - cardiology recommended conservative management - echocardiogram shows dyskinesis of IVC, dilated RV and dilated RA. RV failure. Mild LVH and mild LV diastolic dysfunction with EF 65 % - blood culture 09/02 showed Staph hominis sensitive to vancomycin - repeat blood culture 09/11 showed Staphylococcus epidermidis sensitive to Cipro, clinda, linezolid, vancomycin - repeat blood culture 09/24 shows no growth - started furosemide 40 mg IV daily starting 09/27 RESPIRATORY Acute hypoxic respiratory failure secondary to probable community-acquired pneumonia due to MRSA and S pneumo Advanced COPD Chronic nicotine dependence - patient was intubated and mechanically ventilated starting 09/02 - bronchoscopy completed 09/07, results showed MRSA positive - repeat bronchoscopy 09/08, showed comparatively lesser secretions - sputum culture 09/02 showed MRSA, strep pneumo - bronchial wash specimen collected 09/07 showed MRSA - repeat respiratory culture 09/22 showed MRSA and presumtive Juju albicans - received cefepime from 09/02 to 09/06 - received meropenem 11/03 to 09/05, - received vancomycin from 09/03 to 09/11 - received ceftriaxone 2 g daily from 09/13 to 09/19 - received linezolid from 09/11 to 09/17 - continue albuterol and ipratropium q.6 hour p.r.n. - restarted vancomycin 09/27 and started IV meropenem 09/30 - discontinued Diflucan-patient received from 09/27 till 10/01 - discontinued Levaquin 09/30 - 09/28 and 09/29 CPAP trial ended early as the patient became tachypneic with RR of 46/min. - patient's family refusing tracheostomy - Dr. Luis consulted for bronchoscopy. Bronchoscopy performed 09/29 shows mucus plugs in the left upper lobe. GI History of multiple surgeries secondary to hernia and bowel obstruction Multiple ventral wall hernias Possible bowel obstruction Transaminitis secondary to septic shock Rhabdomyolysis likely secondary to immobilization Surgeon consulted-recommended conservative management, small varices could not be performed at this moment due to respiratory status of the patient Continue IV pantoprazole 40 mg daily Continue docusate /KIDNEY FEDE, likely secondary to VMN - resolved Probable pelvic inflammatory disease Hyponatremia-resolved Hypomagnesemia Hypercalcemia -corrected calcium 12, PTH 19 - creatinine downtrending - creatinine kinase downtrended from 8215 to 77 - nephrology consulted, last hemodialysis session was performed on 09/10 - urine bacterial culture 09/02 showed less than 68530 CFU of coagulase-negative Staphylococcus - vaginal culture 09/06 showed coagulase-negative Staphylococcus, Enterococcus faecalis, MRSA sensitive to daptomycin, linezolid, vancomycin, TMP SMX - patient had purulent vaginal discharge - 40 mEq potassium and 2 g of magnesium administered 09/28 ENDO Hypertriglyceridemia, TG 623 09/04, 320 at 09/15 Likely due to propofol, discontinued propofol Obesity - Continue Atorvastatin 40 mg ID Polysubstance use - Infectious disease consulted, continue management as above - Per patient's daughter, patient uses amphetamine, marijuana, smokes cigarettes - HIV testing negative - Hepatitis panel negative Hematology Lower extremity DVT - Ultrasound Doppler of lower extremities 08/15 shows nonocclusive DVT of the left popliteal vein - Continue Lovenox 100 mg b.i.d. LINES ETT, intubated on 09/02/2024 IV access Left upper arm PICC line, placed on 09/13 Drips: Versed 10 Levophed 4 Fentanyl 300 Nutrition Jevity 40 mL/hour Goals of care/advance care planning; FULL CODE; discussed on for 24 minutes. PUD prophylaxis; therapeutic Lovenox DVT prophylaxis; pantoprazole 40 mg IV daily Case discussed with Dr. Beck. Consider Diamox if the patient remains alkalotic Plan discussed with the patient's daughter over the bedside for more than 50 minutes, code status full code Critical care time including review of chart, excluding procedures: 43 minutes Plan discussed with: Patient My Orders My Orders Orders - NAN AMAYA Procedure Category Date Status Time Abg W/ Co-Ox RT 10/01/24 Logged 04:00 Chest Xray 1 View XY 10/01/24 Resulted 04:00 Lactulose Oral PHA 10/01/24 In Process 14:30 Senna Pod Tablet PHA 10/01/24 In Process (Senokot Tablet) 22:00 Dietary Evaluation Review Comments: 1. Consider EN/TPN if NPO >7days 2. Continue plan of care Expected Outcomes/Goals: 1. Pt will meet >75% of estimated needs within 2-3 days Date of Service: Oct 01, 2024 Billing Provider: IVAN BECK MD Common Visit Codes: 18548-JFXNIYFS CARE 30-74 MIN NAN AMAYA Oct 01, 2024 20:41 IVAN BECK MD Oct 02, 2024 00:10
[2024-10-01] MEDS: SENNA 8.6 MG TAB PO SCH (22:17)
[2024-10-02] VITALS (107 sets, daily range): BP systolic 95–122; BP diastolic 54–69; PULSE 72–91; RESP 22–23; TEMP 97–99.2; O2SAT 86–95
[2024-10-02] MEDS: fentaNYL Drip 2500mCg/250mlNS 250 ML IV SCH (01:37)
[2024-10-02 03:30] LABS: Basophils # (auto) 0.2 10 ^3/uL (0-0.2); Eosinophils # (auto) 0.5 10 ^3/uL (0-0.8); Eosinophils % (auto) 6.5 % (0.0-7.0); Hematocrit 37.1 % (36.0-46.0); Hemoglobin 12.1 g/dL (12.2-16.2); Lymphocytes # (auto) 1.3 10 ^3/uL (0.4-5.4); Lymphocytes % (auto) 16.6 % (10.0-50.0); Mean Corpuscular Hemoglobin 28.9 pg (28.0-32.0); Mean Corpuscular Hgb Conc. 32.6 g/dL (32.0-36.0); Mean Corpuscular Volume 88.7 fL (80.0-100.0); Monocytes % (auto) 13.4 % (0.0-12.0); Neutrophils # (auto) 4.8 10 ^3/uL (1.6-8.6); Neutrophils % (auto) 61.5 % (37.0-80.0); Nucleated Red Blood Cells % 0.4 %; Platelet Count (auto) 449 10^3/uL (140-450); Red Blood Cells 4.19 10^6/uL (4.0-5.20); Red Cell Distribution Width 14.7 % (11.8-14.3); White Blood Cell 7.8 10^3/uL (4.4-10.8)
[2024-10-02 03:51] LABS: Alanine Aminotransferase 18 U/L (7-40); Albumin 3.5 g/dL (3.2-4.8); Anion Gap 12 (5-15); Aspartate Aminotransferase 19 U/L (13-40); BUN/Creatinine Ratio 11.1 (10.0-20.0); Bilirubin, Total 0.4 mg/dL (0.2-1.0); Blood Urea Nitrogen 13 mg/dL (9-23); Carbon Dioxide 27 mmol/L (20-31); Chloride 106 mmol/L (98-107); Glucose 103 mg/dL (74-106); Potassium 3.9 mmol/L (3.5-5.1); Sodium 145 mmol/L (136-145); Total Protein 6.4 g/dL (5.7-8.2)
[2024-10-02 04:03] LABS: Alkaline Phosphatase 116 U/L (46-116); Calcium 12.7 mg/dL (8.7-10.4); Magnesium 1.5 mg/dL (1.6-2.6)
--- NOTE | 2024-10-02 05:38 | DVH ---
CHEST RADIOGRAPH Indication: INTUBATED Technique: Single frontal view of the chest was obtained Comparison: XY CHEST XRAY 1 VIEW on DOS: 10/01/24, XY CHEST XRAY 1 VIEW on DOS: 09/30/24, XY CHEST XR AY 1 VIEW on DOS: 09/29/24 IMPRESSION: There are low lung volumes with small bilateral pleural effusions and bibasilar atelectasis. Moderat e pulmonary vascular congestion. Support lines and tubes appear unchanged in position. No discrete p neumothorax. No significant interval change.
[2024-10-02 07:49] LABS: Base Excess 5.5 mmol/L (-2.0-3.0)
--- NOTE | 2024-10-02 09:57 | DVHPN2 ---
Subjective The patient is seen and examined at bedside. The patient remained intubated. No change overnight. Patient is not tolerating CPAP trial ,back on sedation Reviewed: Care Plan, H&P, Labs, Medications, Previous Orders, Radiology, Other (Consultants) Changes from previous H/P or p: No Changes Objective Vitals Vital Signs Date Time Temp Pulse Resp B/P (MAP) Pulse Ox O2 Delivery O2 Flow Rate FiO2 10/02/24 09:27 79 22 103/59 (74) 93 40 10/02/24 08:00 Mechanical Ventilator+ 10/02/24 04:00 98.2 98.2 Intake/Output Intake and Output 10/02/24 07:00 Intake Total 1727.50 ml Output Total 1700 ml Balance 27.50 ml Intake Oral 60 ml IV Total 1578.50 ml Tube Feeding 89 ml Output Urine Total 1700 ml General Appearance: Other (Sedated and intubated) HEENT: Atraumatic, PERRLA Lungs: Other (Crackles bilateral lungs) Cardiovascular: Regular rate Abdomen: Other Extremities: Other (Decreased edema bilateral lower extremities/skin shrinkage) Medications Current Medications Medications Dose Ordered Sig/Acacia Route Start Time Stop Time Status Last Admin Dose Admin Pantoprazole Sodium 40 mg DAILY IV 09/04/24 10:00 10/01/24 11:18 40 MG Sodium Chloride 10 ml QSHIFT@22 IV 09/13/24 22:00 10/01/24 21:20 10 ML Albuterol 2.5 mg Q6HPRN PRN NEB 09/21/24 19:00 10/02/24 06:33 2.5 MG Ipratropium [place] 0.5 mg Q6HPRN PRN NEB 09/21/24 19:00 10/02/24 06:33 0.5 MG Vancomycin HCl 0 ml @ 0 mls/hr UD IV 09/22/24 10:45 Midazolam HCl 50 ml @ 1 mls/hr Q24H IV 09/22/24 19:45 10/02/24 05:44 3 MLS/HR Enteral Nutritional Formula 1,000 ml 30ML/HR GT 09/23/24 12:30 09/30/24 16:31 1,000 ML Potassium Chloride/Sodium Chloride 1,000 ml @ 50 mls/hr Q20H IV 09/25/24 12:00 Cancel Furosemide 40 mg DAILY IV 09/28/24 10:00 10/01/24 11:19 40 MG Acetaminophen 650 mg Q6HP PRN GT 09/30/24 11:45 Meropenem 50 ml @ 17 mls/hr Q8HR IV 09/30/24 14:00 10/02/24 05:43 17 MLS/HR Norepinephrine Bitartrate 250 ml @ 3.75 mls/hr Q24H IV 09/30/24 15:15 10/02/24 06:15 3.75 MLS/HR Lactulose 30 ml BID PO 10/01/24 14:30 10/01/24 22:17 30 ML Sennosides 8.6 mg HS PO 10/01/24 22:00 10/01/24 22:17 8.6 MG Metoclopramide HCl 10 mg TID IV 10/01/24 18:00 10/02/24 05:43 10 MG Fentanyl Citrate 250 ml @ 2.5 mls/hr Q24H IV 10/01/24 23:00 10/02/24 01:37 27.5 MLS/HR Laboratory Results Laboratory Tests 10/02/24 02:59 Chemistry Test 10/02/24 02:59 Albumin 3.5 g/dL (3.2-4.8) Calcium Level 12.7 mg/dL (8.7-10.4) H Magnesium Level 1.5 mg/dL (1.6-2.6) L Total Protein 6.4 g/dL (5.7-8.2) LFT Test 10/02/24 02:59 Alanine Aminotransferase (ALT) 18 U/L (7-40) Alkaline Phosphatase 116 U/L (46-116) Aspartate Amino Transferase (AST) 19 U/L (13-40) Total Bilirubin 0.4 mg/dL (0.2-1.0) Urinalysis Test 09/04/24 14:26 09/23/24 09:25 Urine Amorphous Crystals Few /hpf (None Seen) Urine Total Protein 253.7 mg/dL (1-14) H Urine Color Light-yellow (Yellow) Urine Clarity Turbid (Clear) H Urine pH 5.0 (5.0-9.0) Urine Specific [place] 1.011 (1.001-1.035) Urine Protein Negative (Negative) Urine Ketones Negative (Negative) Urine Blood 1+ /uL (Negative) H Urine Nitrite Negative (Negative) Urine Bilirubin Negative (Negative) Urine Urobilinogen Normal mg/dL (Negative) Urine Leukocyte Esterase 1+ /uL (Negative) Urine RBC 33 /hpf (0 - 4) Urine WBC 14 /hpf (0 - 5) Urine Squamous Epithelial Cells Few /hpf (<5) Urine Bacteria None seen /hpf (None Seen) Urine Hyaline Casts Many /lpf (0 - 2) Urine Mucus Few (None Seen) Urine Yeast (Budding) Moderate /hpf (None Seen) Urine Creatinine 24.25 mg/dL (30.0-125.0) L Urine Sodium 109 mmol/L (40-220) Urine Glucose Normal mg/dL (Normal) Blood Gas Results Test 10/02/24 07:14 Arterial Blood pH 7.513 (7.350-7.450) FiO2 % 35.0 Microbiology Microbiology Date/Time Source Procedure Growth Status 09/26/24 13:00 Abdomen Gram Stain - Final Complete 09/26/24 13:00 Wound Culture - Final Methicillin Resistant S.aureus Complete 09/24/24 10:59 Blood Blood Culture - Final NO GROWTH AFTER 5 DAYS OF INCUBATION. Complete 09/22/24 10:59 Sputum Gram Stain - Final Complete 09/22/24 10:59 Respiratory Culture - Final Methicillin Resistant S.aureus Presumptive Juju albicans Complete 09/11/24 00:00 Voided Urine Urine Culture - Final Complete 09/06/24 13:00 Vaginal Vaginal Culture - Final Enterococcus faecalis Methicillin Resistant S.aureus Complete Labs and/or images reviewed: Labs reviewed by me Assessment/Plan Assessment/Plan NEURO: Acute metabolic encephalopathy likely due to septic shock Patient was sedated and on mechanical ventilation, RASS score -5 CARDIOVASCULAR: NSTEMI type 2 likely due to septic shock Has history of pulmonary emboli in 2016 Cardiology on the board, recommended conservative management Echocardiogram shows mild LVH with mild LV diastolic dysfunction with ejection fraction of 65 Continuing Lasix as needed PULMONARY: Acute Hypoxic respiratory failure, likely due to pneumonia Septic shock likely due to pneumonia Pneumonia due to MRSA Bronchoscopy performed on 09/07 shows lots of secretion on the left main bronchus, bronchial lavage results shows MRSA Bronchoscopy was repeated on 09/08, shows less mucus secretion in compared to previous bronchoscopy Blood culture from 09/02/2024 shows staph hominis sensitive to vancomycin Sputum culture from 09/02/2024 shows MRSA, Streptococcus pneumoniae vancomycin Continuing current management. We will try CPAP again in the later day. Influenza and COVID-19 screening negative Blood culture from 09/11 shows Staphylococcus epidermidis, sensitive to vancomycin Cefepime was given for 5 days from to 09/06, meropenem given for 3 days from 09/03 to 09/05, vancomycin given 14 days from 09/03 to, ceftriaxone 2 g daily was given for 6 days from 09/13 to 09/19, linezolid given for 7 days from 09/11 to 09/17 Continue N-acetylcysteine Chest x-ray shows bilateral infiltration, likely due to congestion, improved in comparison to yesterday ABGs shows respiratory acidosis, respiratory rate increased from 18 to 22 Breathing treatment q.6 hours as needed Patient was respiratory status worsened during the morning, on auscultation there was course breath sounds bilaterally, 80 mg of Lasix given, patient was put on BiPAP 26/04, with the patient condition worsen and the patient was sedated has been put on mechanical ventilation in the setting of VT 450, RR 22, FiO2 85% and peep 5 Bronchoscopy performed due to asymmetric course breath sounds, found copious mucous secretion on the left mid and lower lobe, and right lower lobe Started back vancomycin and levofloxacin on 09/22 Repeat sputum culture on 09/22 shows Staph Aureus GI: Patient has history of multiple surgery of hernia(2015) and bowel obstruction(2019) Abdominal ventral hernias, abdominal CT scan shows multiple ventral wall hernias containing fat and bowel with mild dilatation of proximal jejunum loops with jejunal loops course into the abdominal hernia Possible bowel obstruction, surgery consulted, recommended conservative management, suggested that small bowel series could not perform at the moment due to respiratory status of the patient Transaminitis, likely ischemic secondary to septic shock Patient had 1 bowel movement last night Bowel regimen: Docusate GI ppx: Protonix RENAL: FEDE , likely hemodynamically mediated, improved Nephrology on the board, last HD session on 09/10 Hypernatremia free water deficit calculated, 4 L D5W 125ml/hr Possible rhabdomyolysis, likely due to immobilization Creatinine kinase is raised at 8215, normalized ENDOCRINE: Hypertriglyceridemia, TG 623 09/04, 320 at 09/15 Likely due to propofol, discontinued propofol Continue Atorvastatin 40 mg ID: Sputum cultures from 09/02/2024 shows MRSA, Streptococcus pneumoniae Blood culture from 09/02/2024 shows Staph hominis Results from bronchial washing, from 09/07/2024 shows no growth after 24 hours ID on the board, suggested that the culture results are probably due to contamination and recommended to repeat the culture Blood culture from 09/11 shows Staphylococcus epidermidis, likely due to continue Repeat UA from 08/24 shows UTI picture Patient has spikes of mild fever, repeat Blood culture on 09/23 Possible PID Patient had purulent vaginal discharge Vaginal bacterial culture, shows coagulase-negative Staphylococcus with few growth of possible Enterococcus species Metabolic: Hyperkalemia, improved Hyponatremia, improved Hypokalemia, supplemented Hypomagnesemia, supplemented Hypernatremia, monitoring Multidrug abuser: Per patient's daughter, she is a current user of amphetamine, marijuana and smoking cigarettes Hepatitis B and C serology negative HIV is negative Heme: DVT Doppler ultrasound of lower limb at 08/15 shows, nonocclusive DVT at left popliteal vein Lovenox 100 mg b.i.d. LINES/DRAINS/ACCESS: ETT, intubated on 09/02/2024 IV access Left upper arm PICC line, placed on 09/13 Drips: Levophed 12 Fentanyl 350 Versed 10 DVT ppx: Therapeutic dose of Lovenox DIET: Jevity 30ml/hr CODE STATUS: Full code Continuing current management. Discussed with RN. Critical care time spent for this patient is 35 mins exclude procedure time. This medical document was created using an electronic medical record system with [employer] direct computerized dictation system. Although this document has been carefully reviewed, there may still be some phonetic and typographical errors. These areas are purely typographical due to imperfections of the software programs, and do not reflect any compromise in the patient's medical care. Plan discussed with: Other (RN) Date of Service: Oct 02, 2024 Billing Provider: RADHA DE LA TORRE MD Common Visit Codes: 44469-[id number] CARE 30-74 MIN RADHA DE LA TORRE MD Oct 02, 2024 09:57
--- NOTE | 2024-10-02 16:27 | DVHPN2 ---
Progress Note - Dictate Date Seen: Oct 02, 2024 Has the PT tested + for MRSA If YES, has PT been informed?: Yes Medical Necessity Reason Pt with a Central, PICC or Fol: Yes The following are medically ne: PICC Line, Betancourt Catheter Reason for betancourt catheter: Strict I&O Subjective Patient seen and examined at bedside. Sedated, intubated on mechanical ventilator. Overnight events reviewed. vital signs Vital Sign Date Time Temp Pulse Resp B/P (MAP) Pulse Ox O2 Delivery O2 Flow Rate FiO2 10/02/24 15:15 81 22 105/65 (78) 93 10/02/24 15:00 40 10/02/24 14:00 Mechanical Ventilator+ 10/02/24 12:00 99.0 99.0 Total Intake and Output 10/01/24 10/01/24 10/02/24 15:00 23:00 07:00 Intake Total 874.75 ml 458.25 ml 394.50 ml Output Total 1200 ml 500 ml Balance 874.75 ml -741.75 ml -105.50 ml medications Current Medications Medications Dose Ordered Sig/[place]acia Route Start Time Stop Time Status Last Admin Dose Admin Pantoprazole Sodium 40 mg DAILY IV 09/04/24 10:00 10/02/24 10:32 40 MG Sodium Chloride 10 ml QSHIFT@10,22 IV 09/13/24 22:00 10/02/24 10:33 10 ML Albuterol 2.5 mg Q6HPRN PRN NEB 09/21/24 19:00 10/02/24 11:21 2.5 MG Ipratropium [place] 0.5 mg Q6HPRN PRN NEB 09/21/24 19:00 10/02/24 11:21 0.5 MG Vancomycin HCl 0 ml @ 0 mls/hr UD IV 09/22/24 10:45 Midazolam HCl 50 ml @ 1 mls/hr Q24H IV 09/22/24 19:45 10/02/24 05:44 3 MLS/HR Enteral Nutritional Formula 1,000 ml 30ML/HR GT 09/23/24 12:30 09/30/24 16:31 1,000 ML Potassium Chloride/Sodium Chloride 1,000 ml @ 50 mls/hr Q20H IV 09/25/24 12:00 Cancel Furosemide 40 mg DAILY IV 09/28/24 10:00 10/02/24 10:32 40 MG Acetaminophen 650 mg Q6HP PRN GT 09/30/24 11:45 Meropenem 50 ml @ 17 mls/hr Q8HR IV 09/30/24 14:00 10/02/24 14:02 17 MLS/HR Norepinephrine Bitartrate 250 ml @ 3.75 mls/hr Q24H IV 09/30/24 15:15 10/02/24 06:15 3.75 MLS/HR Lactulose 30 ml BID PO 10/01/24 14:30 10/02/24 10:32 30 ML Sennosides 8.6 mg HS PO 10/01/24 22:00 10/01/24 22:17 8.6 MG Metoclopramide HCl 10 mg TID IV 10/01/24 18:00 10/02/24 14:02 10 MG Fentanyl Citrate 250 ml @ 2.5 mls/hr Q24H IV 10/01/24 23:00 10/02/24 11:51 25 MLS/HR objective Gen.: Patient lying in bed in medical ICU. Sedated, intubated on mechanical ventilator. Head: Normocephalic, atraumatic. Eyes: PERRLA. Ears: Normal external anatomy. Throat: Endotracheal tube and orogastric tube in place. Neck: Supple, trachea midline. Chest: Transmitted breath sounds bilaterally. Decreased air entry bilaterally. No wheezing. Bibasilar crackles. Cardio vascular: Positive S1, positive S2. Regular rate and rhythm. Abdomen: Positive bowel sounds in all 4 quadrants. Soft, nontender, nondistended. : Betancourt in place. Normal external genitalia. Rectal: Deferred Skin: Warm, dry. Intact. Extremities: 2+ radial pulses bilaterally. No lower extremity edema. Neuro: Sedated laboratory and microbiology Laboratory Tests 10/02/24 02:59 Test 10/02/24 02:59 Range/Units Serum Glucose 103 74-106 mg/dL Assessment/Plan Impression: Acute on chronic hypoxic respiratory failure On mechanical ventilator Pulmonary edema Pleural effusion, left Atelectasis Leukocytosis Lactic acidosis Morbid obesity, BMI 40 Events: Remains on vent support Vent settings; AC mode with respiratory rate of 22, tidal volume 450, PEEP of 5, FiO2 at 40%. Sedated w/ Versed, Fentanyl. Pressors for hemodynamic support. On Levophed 2 mcg/min Titrate to keep MAP above 65 mmHg/SBP above 90 mmHg. ABG notable for alkalemia. CXR demonstrates low lung volumes with small bilateral pleural effusions and bibasilar atelectasis. Moderate pulmonary vascular congestion. Continue bronchodilators Continue antibiotics WBC within normal limits. Tube feeds for nutritional support Potassium supplementation Monitor renal function Monitor electrolytes. Supplement as necessary. ET tube with minimal secretions. Awaiting family decision for goals of care. Continue to monitor respiratory status closely. Poor prognosis due to multiorgan failure - renal, respiratory and liver failure. Labs and imaging reviewed. Rest of plan as noted below. Plan: s/p intubation on mechanical ventilator Vent settings; AC mode with respiratory rate of 22, tidal volume 450, PEEP of 5, FiO2 at 40%. Titrate FIO2 to keep O2 saturation above 92%. VAP bundle Daily ABG and CXR while intubated. Sedated for ventilator synchrony Bronchodilators Pressors for hemodynamic support. On Levophed 2 mcg/min Titrate to keep MAP above 65 mmHg/SBP above 90 mmHg. Antibiotics (Vancomycin stopped d/t kidney failure). F/u cultures. WBC within normal. Monitor renal function Monitor ins/outs. Monitor electrolytes. Supplement as necessary. Monitor lactic acid On IVF Nutritional support. GI/DVT prophylaxis. Condition: Critical Prognosis: Poor given multiple comorbidities. Rest of plan per hospitalist and other consultants. A total of 35 minutes of critical care time was spent reviewing the patient record, examining the patient, making a diagnostic and therapeutic plan, discussing this plan with the medical personnel, following up on diagnostic studies and following the patient for clinical stability excluding any and all procedures. At least 50% of this time was spent in direct, [id number] contact. Thank you Dr. Banda for allowing me to participate in this patient's care. Further recommendations will depend on patient's clinical course. Please do not hesitate to contact me if you have any questions or concerns. This medical document was created using an electronic medical record system with [employer] system. Although this document has been carefully reviewed, there may still be some phonetic and typographical errors. These areas are purely typographical due to imperfections of the software programs, and do not reflect any compromise in the patient's medical care. Dietary Evaluation Review Comments: 1. Consider EN/TPN if NPO >7days 2. Continue plan of care Expected Outcomes/Goals: 1. Pt will meet >75% of estimated needs within 2-3 days Plan discussed with: Other (DEIDRE Merino) Critical Care Time(min): 35 SHAI SINGH MD Oct 02, 2024 16:27
--- NOTE | 2024-10-02 19:45 | DVHPN2 ---
Progress Note - Dictate Date Seen: Oct 02, 2024 Has the PT tested + for MRSA If YES, has PT been informed?: Yes Medical Necessity Reason Pt with a Central, PICC or Fol: Yes The following are medically ne: PICC Line, Betancourt Catheter Reason for betancourt catheter: Strict I&O Subjective Patient was seen and evaluated in follow up in the ICU. Patient is intubated and sedated on ventilator. 40% FiO2. Patient did not tolerate CPAP trial and was put back on sedation. PANTOGRAPH OPERATOR 1.17, CA 12.7. Chest x-ray shows there are low lung volumes with small bilateral pleural effusions and bibasilar atelectasis. Moderate pulmonary vascular congestion. vital signs Vital Sign Date Time Temp Pulse Resp B/P (MAP) Pulse Ox O2 Delivery O2 Flow Rate FiO2 10/02/24 11:18 86 22 99/58 (72) 92 40 10/02/24 10:00 Mechanical Ventilator+ 10/02/24 08:00 97.0 97.0 Total Intake and Output 10/01/24 10/01/24 10/02/24 15:00 23:00 07:00 Intake Total 874.75 ml 458.25 ml 394.50 ml Output Total 1200 ml 500 ml Balance 874.75 ml -741.75 ml -105.50 ml medications Current Medications Medications Dose Ordered Sig/[place] Route Start Time Stop Time Status Last Admin Dose Admin Pantoprazole Sodium 40 mg DAILY IV 09/04/24 10:00 10/02/24 10:32 40 MG Sodium Chloride 10 ml QSHIFT@10,22 IV 09/13/24 22:00 10/02/24 10:33 10 ML Albuterol 2.5 mg Q6HPRN PRN NEB 09/21/24 19:00 10/02/24 11:21 2.5 MG Ipratropium [place] 0.5 mg Q6HPRN PRN NEB 09/21/24 19:00 10/02/24 11:21 0.5 MG Vancomycin HCl 0 ml @ 0 mls/hr UD IV 09/22/24 10:45 Midazolam HCl 50 ml @ 1 mls/hr Q24H IV 09/22/24 19:45 10/02/24 05:44 3 MLS/HR Enteral Nutritional Formula 1,000 ml 30ML/HR GT 09/23/24 12:30 09/30/24 16:31 1,000 ML Potassium Chloride/Sodium Chloride 1,000 ml @ 50 mls/hr Q20H IV 09/25/24 12:00 Cancel Furosemide 40 mg DAILY IV 09/28/24 10:00 10/02/24 10:32 40 MG Acetaminophen 650 mg Q6HP PRN GT 09/30/24 11:45 Meropenem 50 ml @ 17 mls/hr Q8HR IV 09/30/24 14:00 10/02/24 05:43 17 MLS/HR Norepinephrine Bitartrate 250 ml @ 3.75 mls/hr Q24H IV 09/30/24 15:15 10/02/24 06:15 3.75 MLS/HR Lactulose 30 ml BID PO 10/01/24 14:30 10/02/24 10:32 30 ML Sennosides 8.6 mg HS PO 10/01/24 22:00 10/01/24 22:17 8.6 MG Metoclopramide HCl 10 mg TID IV 10/01/24 18:00 10/02/24 05:43 10 MG Fentanyl Citrate 250 ml @ 2.5 mls/hr Q24H IV 10/01/24 23:00 10/02/24 01:37 27.5 MLS/HR objective GENERAL: Intubated on ventilator. Morbidly obese. LUNGS: Decreased breath sounds. CARDIOVASCULAR: Heart sounds are good. ABDOMEN: Soft. Morbid pannus limited physical palpation. SKIN: Multiple scars to abdomen. laboratory and microbiology Laboratory Tests 10/02/24 02:59 Test 10/02/24 02:59 Range/Units Serum Glucose 103 74-106 mg/dL Problem List Septic shock. Acute on chronic respiratory failure. NSTEMI type II secondary to above. Rule out structural heart disease. Prolonged QT interval. Morbid obesity, Class 3. Assessment/Plan Continued all current supportive medical care. DVT and GI prophylactics. Diuretics with Lasix. Nebulized breathing treatments. Vasopressors for hemodynamic support. Additional plan as per the hospital course. Critical care time of 45 minutes provided to include time spent evaluation of patient at bedside, when appropriate patient/family education for diagnosis, treatment plan, review of pertinent medical information and discussion of care with specialty providers and PCP. Mechanical ventilator parameters, treatment and adjustments have personally been reviewed by me and treatment plan by grounds/maintenance specialist has also been reviewed. Dietary Evaluation Review Comments: 1. Consider EN/TPN if NPO >7days 2. Continue plan of care Expected Outcomes/Goals: 1. Pt will meet >75% of estimated needs within 2-3 days Plan discussed with: Other RELL STEWART MD Oct 02, 2024 11:34
--- NOTE | 2024-10-02 20:32 | DVHPN2 ---
Progress Note - Dictate Date Seen: Oct 02, 2024 Has the PT tested + for MRSA If YES, has PT been informed?: Yes Medical Necessity Reason Pt with a Central, PICC or Fol: Yes The following are medically ne: PICC Line, Betancourt Catheter Reason for betancourt catheter: Strict I&O Subjective Patient is sedated and mechanically ventilated. 40% FiO2. Patient did not tolerate CPAP trial and was put back on sedation. Bronchoscopy performed 09/29 shows mucus plugs in the left upper lobe. 09/26 Chest x-ray showed: Lines and tubes in satisfactory position. No significant interval change. 09/30 Chest x-ray shows stable position of the support lines and tubes, bibasilar opacities which may reflect atelectasis or pneumonia, bilateral pleural effusions. 10/01 reviewed ; Lines and tubes in satisfactory position. No significant interval change. 10/02 - Chest x-ray shows there are low lung volumes with small bilateral pleural effusions and bibasilar atelectasis. Moderate pulmonary vascular congestion. vital signs Vital Sign Date Time Temp Pulse Resp B/P (MAP) Pulse Ox O2 Delivery O2 Flow Rate FiO2 10/02/24 20:06 88 22 99/61 (74) 90 40 10/02/24 18:31 Mechanical Ventilator+ 10/02/24 16:00 98.2 98.2 Total Intake and Output 10/01/24 10/01/24 10/02/24 15:00 23:00 07:00 Intake Total 874.75 ml 458.25 ml 394.50 ml Output Total 1200 ml 500 ml Balance 874.75 ml -741.75 ml -105.50 ml medications Current Medications Medications Dose Ordered Sig/Acacia Route Start Time Stop Time Status Last Admin Dose Admin Pantoprazole Sodium 40 mg DAILY IV 09/04/24 10:00 10/02/24 10:32 40 MG Sodium Chloride 10 ml QSHIFT@10,22 IV 09/13/24 22:00 10/02/24 10:33 10 ML Albuterol 2.5 mg Q6HPRN PRN NEB 09/21/24 19:00 10/02/24 18:31 2.5 MG Ipratropium [place] 0.5 mg Q6HPRN PRN NEB 09/21/24 19:00 10/02/24 18:31 0.5 MG Vancomycin HCl 0 ml @ 0 mls/hr UD IV 09/22/24 10:45 Midazolam HCl 50 ml @ 1 mls/hr Q24H IV 09/22/24 19:45 10/02/24 05:44 3 MLS/HR Enteral Nutritional Formula 1,000 ml 30ML/HR GT 09/23/24 12:30 09/30/24 16:31 1,000 ML Potassium Chloride/Sodium Chloride 1,000 ml @ 50 mls/hr Q20H IV 09/25/24 12:00 Cancel Furosemide 40 mg DAILY IV 09/28/24 10:00 10/02/24 10:32 40 MG Acetaminophen 650 mg Q6HP PRN GT 09/30/24 11:45 Meropenem 50 ml @ 17 mls/hr Q8HR IV 09/30/24 14:00 10/02/24 14:02 17 MLS/HR Norepinephrine Bitartrate 250 ml @ 3.75 mls/hr Q24H IV 09/30/24 15:15 10/02/24 06:15 3.75 MLS/HR Lactulose 30 ml BID PO 10/01/24 14:30 10/02/24 10:32 30 ML Sennosides 8.6 mg HS PO 10/01/24 22:00 10/01/24 22:17 8.6 MG Metoclopramide HCl 10 mg TID IV 10/01/24 18:00 10/02/24 14:02 10 MG Fentanyl Citrate 250 ml @ 2.5 mls/hr Q24H IV 10/01/24 23:00 10/02/24 11:51 25 MLS/HR objective General: Intubated and sedated HEENT: Atraumatic,intubated Neck: No swelling Lungs: Equal air entry and clear to auscultation Cardiovascular: S1 S2 heard no murmur Abdomen: Soft nontender, no organomegaly, nondistended Neuro: sedated, unable to assess Psych: unable to assess laboratory and microbiology Laboratory Tests 10/02/24 02:59 Test 10/02/24 02:59 Range/Units Serum Glucose 103 74-106 mg/dL Assessment/Plan Patient is a 63-year-old female presented to the hospital with: failed extubation, reintubated Staphylococcus aureus pneumonia ( MRSA) Streptococcus Pneumoniae pneumonia Septic shock resolving bacteremia : coag neg staphylococccus, possible contamination Acute Respiratory Failure [requiring mechanical ventilation] severe hypoxia Metabolic acidosis FEDE Morbidly obese BMI = 40 PE history Recommendations: Reintubation on 09/22. family is against trach, plan for Cpap Continue IV vancomycin [Restarted on 09/27 ] and now on meropenem ( since 09/30- : no clear indication for MEroepenm. Discontinued Levaquin 09/30 I feel she is already received prolonged course of antibiotics for MRSA pneumonia. 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 Patient had difficult extubation in the past, 4 years ago when she was intubated for surgery as per records. 09/26, Wound culture preliminary: Coagulase Negative Staphylococcus Antibiotics review Cefepime 09/02- 09/06 Meropenem 09/03-09/05 Ceftriaxone 09/07-ongoing last given 09/18 Vancomycin 09/03- 09/11 Linezolid 09/11- ongoing - 09/17 last given Blood culture:co ag neg staph, i think its contaminated. Recent on 09/07 showed no growth Pulmonary on board for vent management full code prognosis guarded crit time 35 mins spent during the encounter. Thank you for consult and for giving an opportunity to take care of this patient. Dietary Evaluation Review Comments: 1. Consider EN/TPN if NPO >7days 2. Continue plan of care Expected Outcomes/Goals: 1. Pt will meet >75% of estimated needs within 2-3 days Plan discussed with: ANGELLA Peng MD Oct 02, 2024 20:32
[2024-10-03] VITALS (99 sets, daily range): BP systolic 93–142; BP diastolic 52–92; PULSE 72–119; RESP 11–24; TEMP 97.8–99; O2SAT 88–97
[2024-10-03 03:58] LABS: Basophils # (auto) 0.1 10 ^3/uL (0-0.2); Eosinophils # (auto) 0.5 10 ^3/uL (0-0.8); Monocytes # (auto) 1.4 10 ^3/uL (0-1.3); Neutrophils # (auto) 7.3 10 ^3/uL (1.6-8.6); Nucleated Red Blood Cells % 0.1 %
[2024-10-03 04:04] LABS: Eosinophils % (auto) 4.4 % (0.0-7.0); Hematocrit 37.3 % (36.0-46.0); Hemoglobin 12.3 g/dL (12.2-16.2); Lymphocytes # (auto) 1.3 10 ^3/uL (0.4-5.4); Lymphocytes % (auto) 12.7 % (10.0-50.0); Mean Corpuscular Hemoglobin 29.8 pg (28.0-32.0); Mean Corpuscular Volume 90.2 fL (80.0-100.0); Monocytes % (auto) 13.3 % (0.0-12.0); Neutrophils % (auto) 68.6 % (37.0-80.0); Platelet Count (auto) 459 10^3/uL (140-450); Red Blood Cells 4.14 10^6/uL (4.0-5.20); Red Cell Distribution Width 14.8 % (11.8-14.3); White Blood Cell 10.6 10^3/uL (4.4-10.8)
[2024-10-03 04:23] LABS: Alanine Aminotransferase 18 U/L (7-40); Albumin 3.5 g/dL (3.2-4.8); Anion Gap 8 (5-15); Aspartate Aminotransferase 28 U/L (13-40); BUN/Creatinine Ratio 11.9 (10.0-20.0); Blood Urea Nitrogen 16 mg/dL (9-23); Carbon Dioxide 30 mmol/L (20-31); Glucose 102 mg/dL (74-106); Magnesium 2.2 mg/dL (1.6-2.6); Potassium 3.7 mmol/L (3.5-5.1)
[2024-10-03 04:24] LABS: Bilirubin, Total 0.4 mg/dL (0.2-1.0); Phosphorus 4.3 mg/dL (2.4-5.1); Total Protein 6.3 g/dL (5.7-8.2)
[2024-10-03 04:45] LABS: Alkaline Phosphatase 124 U/L (46-116); Chloride 107 mmol/L (98-107); Sodium 145 mmol/L (136-145)
--- NOTE | 2024-10-03 05:38 | DVH ---
CHEST RADIOGRAPH Indication: FOLLOW UP, PT. INTUBATED. Technique: Single frontal view of the chest was obtained Comparison: XY CHEST PORTABLE on DOS: 10/02/24, XY CHEST XRAY 1 VIEW on DOS: 10/01/24, XY CHEST XRAY 1 VIEW on DOS: 09/30/24 IMPRESSION: There are low lung volumes with small bilateral pleural effusions and bibasilar airspace opacities wh ich may represent atelectasis versus consolidation or infectious process. Support lines and tubes cas ear unchanged in satisfactory position. No pneumothorax. Mild improvement in pulmonary vascular conge stion.
[2024-10-03 07:31] LABS: Base Excess 2.8 mmol/L (-2.0-3.0)
--- NOTE | 2024-10-03 07:37 | DVHPN2 ---
Subjective The patient is seen and examined at bedside. The patient on bipap. Still very tired. Reviewed: Care Plan, H&P, Labs, Medications, Previous Orders, Radiology, Other (Consultants) Changes from previous H/P or p: No Changes Objective Vitals Vital Signs Date Time Temp Pulse Resp B/P (MAP) Pulse Ox O2 Delivery O2 Flow Rate FiO2 10/03/24 06:30 79 21 109/71 (84) 95 10/03/24 06:05 40 10/03/24 04:00 Mechanical Ventilator+ 10/03/24 04:00 99.0 99.0 Intake/Output Intake and Output 10/03/24 07:00 Intake Total 1014.25 ml Output Total 500 ml Balance 514.25 ml IV Total 880.25 ml Tube Feeding 134 ml Output Urine Total 500 ml General Appearance: Other (Sedated and intubated) HEENT: Atraumatic, PERRLA Lungs: Other (Crackles bilateral lungs) Cardiovascular: Regular rate Abdomen: Other Extremities: Other (Decreased edema bilateral lower extremities/skin shrinkage) Medications Current Medications Medications Dose Ordered Sig/[place]acia Route Start Time Stop Time Status Last Admin Dose Admin Pantoprazole Sodium 40 mg DAILY IV 09/04/24 10:00 10/02/24 10:32 40 MG Sodium Chloride 10 ml QSHIFT@ IV 09/13/24 22:00 10/02/24 21:41 10 ML Albuterol 2.5 mg Q6HPRN PRN NEB 09/21/24 19:00 10/03/24 06:04 2.5 MG Ipratropium [place] 0.5 mg Q6HPRN PRN NEB 09/21/24 19:00 10/03/24 06:04 0.5 MG Vancomycin HCl 0 ml @ 0 mls/hr UD IV 09/22/24 10:45 Midazolam HCl 50 ml @ 1 mls/hr Q24H IV 09/22/24 19:45 10/03/24 06:30 3 MLS/HR Enteral Nutritional Formula 1,000 ml 30ML/HR GT 09/23/24 12:30 09/30/24 16:31 1,000 ML Potassium Chloride/Sodium Chloride 1,000 ml @ 50 mls/hr Q20H IV 09/25/24 12:00 Cancel Furosemide 40 mg DAILY IV 09/28/24 10:00 10/02/24 10:32 40 MG Acetaminophen 650 mg Q6HP PRN GT 09/30/24 11:45 Meropenem 50 ml @ 17 mls/hr Q8HR IV 09/30/24 14:00 10/03/24 06:04 17 MLS/HR Norepinephrine Bitartrate 250 ml @ 3.75 mls/hr Q24H IV 09/30/24 15:15 10/02/24 06:15 3.75 MLS/HR Lactulose 30 ml BID PO 10/01/24 14:30 10/02/24 21:41 30 ML Sennosides 8.6 mg HS PO 10/01/24 22:00 10/02/24 21:41 8.6 MG Metoclopramide HCl 10 mg TID IV 10/01/24 18:00 10/03/24 06:04 10 MG Fentanyl Citrate 250 ml @ 2.5 mls/hr Q24H IV 10/01/24 23:00 10/03/24 06:29 25 MLS/HR Laboratory Results Laboratory Tests 10/03/24 03:16 Chemistry Test 10/03/24 03:16 Albumin 3.5 g/dL (3.2-4.8) Calcium Level 13.0 mg/dL (8.7-10.4) *H Magnesium Level 2.2 mg/dL (1.6-2.6) Phosphorus Level 4.3 mg/dL (2.4-5.1) Total Protein 6.3 g/dL (5.7-8.2) LFT Test 10/03/24 03:16 Alanine Aminotransferase (ALT) 18 U/L (7-40) Alkaline Phosphatase 124 U/L (46-116) H Aspartate Amino Transferase (AST) 28 U/L (13-40) Total Bilirubin 0.4 mg/dL (0.2-1.0) Urinalysis Test 09/04/24 14:26 09/23/24 09:25 Urine Amorphous Crystals Few /hpf (None Seen) Urine Total Protein 253.7 mg/dL (1-14) H Urine Color Light-yellow (Yellow) Urine Clarity Turbid (Clear) H Urine pH 5.0 (5.0-9.0) Urine Specific [place] 1.011 (1.001-1.035) Urine Protein Negative (Negative) Urine Ketones Negative (Negative) Urine Blood 1+ /uL (Negative) H Urine Nitrite Negative (Negative) Urine Bilirubin Negative (Negative) Urine Urobilinogen Normal mg/dL (Negative) Urine Leukocyte Esterase 1+ /uL (Negative) Urine RBC 33 /hpf (0 - 4) Urine WBC 14 /hpf (0 - 5) Urine Squamous Epithelial Cells Few /hpf (<5) Urine Bacteria None seen /hpf (None Seen) Urine Hyaline Casts Many /lpf (0 - 2) Urine Mucus Few (None Seen) Urine Yeast (Budding) Moderate /hpf (None Seen) Urine Creatinine 24.25 mg/dL (30.0-125.0) L Urine Sodium 109 mmol/L (40-220) Urine Glucose Normal mg/dL (Normal) Blood Gas Results Test 10/03/24 07:16 Arterial Blood pH 7.440 (7.350-7.450) FiO2 % 40.0 Microbiology Microbiology Date/Time Source Procedure Growth Status 09/26/24 13:00 Abdomen Gram Stain - Final Complete 09/26/24 13:00 Wound Culture - Final Methicillin Resistant S.aureus Complete 09/24/24 10:59 Blood Blood Culture - Final NO GROWTH AFTER 5 DAYS OF INCUBATION. Complete 09/22/24 10:59 Sputum Gram Stain - Final Complete 09/22/24 10:59 Respiratory Culture - Final Methicillin Resistant S.aureus Presumptive Juju albicans Complete 09/11/24 00:00 Voided Urine Urine Culture - Final Complete 09/06/24 13:00 Vaginal Vaginal Culture - Final Enterococcus faecalis Methicillin Resistant S.aureus Complete Labs and/or images reviewed: Labs reviewed by me Assessment/Plan Assessment/Plan NEURO: Acute metabolic encephalopathy likely due to septic shock Patient was sedated and on mechanical ventilation, RASS score -5 CARDIOVASCULAR: NSTEMI type 2 likely due to septic shock Has history of pulmonary emboli in 2016 Cardiology on the board, recommended conservative management Echocardiogram shows mild LVH with mild LV diastolic dysfunction with ejection fraction of 65 Continuing Lasix as needed PULMONARY: Acute Hypoxic respiratory failure, likely due to pneumonia Septic shock likely due to pneumonia Pneumonia due to MRSA Bronchoscopy performed on 09/07 shows lots of secretion on the left main bronchus, bronchial lavage results shows MRSA Bronchoscopy was repeated on 09/08, shows less mucus secretion in compared to previous bronchoscopy Blood culture from 09/02/2024 shows staph hominis sensitive to vancomycin Sputum culture from 09/02/2024 shows MRSA, Streptococcus pneumoniae vancomycin Continuing current management. Continue BIPAP Influenza and COVID-19 screening negative Blood culture from 09/11 shows Staphylococcus epidermidis, sensitive to vancomycin Cefepime was given for 5 days from to 09/06, meropenem given for 3 days from 09/03 to 09/05, vancomycin given 14 days from 09/03 to, ceftriaxone 2 g daily was given for 6 days from 09/13 to 09/19, linezolid given for 7 days from 09/11 to 09/17 Continue N-acetylcysteine Chest x-ray shows bilateral infiltration, likely due to congestion, improved in comparison to yesterday ABGs shows respiratory acidosis, respiratory rate increased from 18 to 22 Breathing treatment q.6 hours as needed Patient was respiratory status worsened during the morning, on auscultation there was course breath sounds bilaterally, 80 mg of Lasix given, patient was put on BiPAP 26/04, with the patient condition worsen and the patient was sedated has been put on mechanical ventilation in the setting of VT 450, RR 22, FiO2 85% and peep 5 Bronchoscopy performed due to asymmetric course breath sounds, found copious mucous secretion on the left mid and lower lobe, and right lower lobe Started back vancomycin and levofloxacin on 09/22 Repeat sputum culture on 09/22 shows Staph Aureus GI: Patient has history of multiple surgery of hernia(2015) and bowel obstruction(2019) Abdominal ventral hernias, abdominal CT scan shows multiple ventral wall hernias containing fat and bowel with mild dilatation of proximal jejunum loops with jejunal loops course into the abdominal hernia Possible bowel obstruction, surgery consulted, recommended conservative management, suggested that small bowel series could not perform at the moment due to respiratory status of the patient Transaminitis, likely ischemic secondary to septic shock Patient had 1 bowel movement last night Bowel regimen: Docusate GI ppx: Protonix RENAL: FEDE , likely hemodynamically mediated, improved Nephrology on the board, last HD session on 09/10 Hypernatremia free water deficit calculated, 4 L D5W 125ml/hr Possible rhabdomyolysis, likely due to immobilization Creatinine kinase is raised at 8215, normalized ENDOCRINE: Hypertriglyceridemia, TG 623 09/04, 320 at 09/15 Likely due to propofol, discontinued propofol Continue Atorvastatin 40 mg ID: Sputum cultures from 09/02/2024 shows MRSA, Streptococcus pneumoniae Blood culture from 09/02/2024 shows Staph hominis Results from bronchial washing, from 09/07/2024 shows no growth after 24 hours ID on the board, suggested that the culture results are probably due to contamination and recommended to repeat the culture Blood culture from 09/11 shows Staphylococcus epidermidis, likely due to continue Repeat UA from 08/24 shows UTI picture Patient has spikes of mild fever, repeat Blood culture on 09/23 Possible PID Patient had purulent vaginal discharge Vaginal bacterial culture, shows coagulase-negative Staphylococcus with few growth of possible Enterococcus species Metabolic: Hyperkalemia, improved Hyponatremia, improved Hypokalemia, supplemented Hypomagnesemia, supplemented Hypernatremia, monitoring Multidrug abuser: Per patient's daughter, she is a current user of amphetamine, marijuana and smoking cigarettes Hepatitis B and C serology negative HIV is negative Heme: DVT Doppler ultrasound of lower limb at 08/15 shows, nonocclusive DVT at left popliteal vein Lovenox 100 mg b.i.d. LINES/DRAINS/ACCESS: ETT, intubated on 09/02/2024 IV access Left upper arm PICC line, placed on 09/13 Drips: Levophed 12 Fentanyl 350 Versed 10 DVT ppx: Therapeutic dose of Lovenox DIET: Jevity 30ml/hr CODE STATUS: Full code Continuing current management. Continue with BIPAP. Speech therapist for swallow eval when patient more alert, awake. Discussed with RN. Critical care time spent for this patient is 36 mins exclude procedure time. This medical document was created using an electronic medical record system with [employer] direct computerized dictation system. Although this document has been carefully reviewed, there may still be some phonetic and typographical errors. These areas are purely typographical due to imperfections of the software programs, and do not reflect any compromise in the patient's medical care. Plan discussed with: Other (RN) Date of Service: Oct 03, 2024 Billing Provider: RADHA DE LA TORRE MD Common Visit Codes: [id number] INP/OBS CARE(HIGH) RADHA DE LA TORRE MD Oct 03, 2024 07:37
[2024-10-03] MEDS: POTASSIUM CHL 20MEQ/100ML 100 ML IV ONE (15:00)
[2024-10-03] MEDS: VANCOMYCIN 750MG KIT 100 ML IV ONE (15:00)
[2024-10-03 15:17] LABS: Base Excess 5.8 mmol/L (-2.0-3.0)
--- NOTE | 2024-10-03 15:44 | DVHPN2 ---
Progress Note - Dictate Date Seen: Oct 03, 2024 Has the PT tested + for MRSA If YES, has PT been informed?: Yes Medical Necessity Reason Pt with a Central, PICC or Fol: Yes The following are medically ne: PICC Line, Betancourt Catheter Reason for betancourt catheter: Strict I&O Subjective Patient was seen and evaluated in follow up in the ICU. Patient is intubated and sedated on ventilator. 40% FiO2. PLT 459, WORT EXTRACTOR 1.34, CA 13. Chest x-ray is unchanged. vital signs Vital Sign Date Time Temp Pulse Resp B/P (MAP) Pulse Ox O2 Delivery O2 Flow Rate FiO2 10/03/24 12:45 88 12 111/71 (84) 93 10/03/24 12:00 98.0 98.0 10/03/24 12:00 Mechanical Ventilator+ 40 40 Total Intake and Output 10/02/24 10/02/24 10/03/24 15:00 23:00 07:00 Intake Total 304.00 ml 438.00 ml 664.25 ml Output Total 500 ml 1150 ml Balance -196.00 ml 438.00 ml -485.75 ml medications Current Medications Medications Dose Ordered Sig/[place] Route Start Time Stop Time Status Last Admin Dose Admin Pantoprazole Sodium 40 mg DAILY IV 09/04/24 10:00 10/03/24 10:00 40 MG Sodium Chloride 10 ml QSHIFT@ IV 09/13/24 22:00 10/03/24 10:00 10 ML Albuterol 2.5 mg Q6HPRN PRN NEB 09/21/24 19:00 10/03/24 12:33 2.5 MG Ipratropium [place] 0.5 mg Q6HPRN PRN NEB 09/21/24 19:00 10/03/24 12:33 0.5 MG Midazolam HCl 50 ml @ 1 mls/hr Q24H IV 09/22/24 19:45 10/03/24 06:30 3 MLS/HR Enteral Nutritional Formula 1,000 ml 30ML/HR GT 09/23/24 12:30 09/30/24 16:31 1,000 ML Potassium Chloride/Sodium Chloride 1,000 ml @ 50 mls/hr Q20H IV 09/25/24 12:00 Cancel Furosemide 40 mg DAILY IV 09/28/24 10:00 10/03/24 11:00 40 MG Acetaminophen 650 mg Q6HP PRN GT 09/30/24 11:45 Meropenem 50 ml @ 17 mls/hr Q8HR IV 09/30/24 14:00 10/03/24 06:04 17 MLS/HR Norepinephrine Bitartrate 250 ml @ 3.75 mls/hr Q24H IV 09/30/24 15:15 10/02/24 06:15 3.75 MLS/HR Lactulose 30 ml BID PO 10/01/24 14:30 10/02/24 21:41 30 ML Sennosides 8.6 mg HS PO 10/01/24 22:00 10/02/24 21:41 8.6 MG Metoclopramide HCl 10 mg TID IV 10/01/24 18:00 10/03/24 06:04 10 MG Fentanyl Citrate 250 ml @ 2.5 mls/hr Q24H IV 10/01/24 23:00 10/03/24 06:29 25 MLS/HR objective GENERAL: Intubated on ventilator. Morbidly obese. LUNGS: Decreased breath sounds. CARDIOVASCULAR: Heart sounds are good. ABDOMEN: Soft. Morbid pannus limited physical palpation. SKIN: Multiple scars to abdomen. laboratory and microbiology Laboratory Tests 10/03/24 03:16 Test 10/03/24 03:16 Range/Units Serum Glucose 102 74-106 mg/dL Problem List Septic shock. Acute on chronic respiratory failure. NSTEMI type II secondary to above. Rule out structural heart disease. Prolonged QT interval. Morbid obesity, Class 3. Assessment/Plan Continued all current supportive medical care. DVT and GI prophylactics. Diuretics with Lasix. Nebulized breathing treatments. Vasopressors for hemodynamic support. Additional plan as per the hospital course. Critical care time of 45 minutes provided to include time spent evaluation of patient at bedside, when appropriate patient/family education for diagnosis, treatment plan, review of pertinent medical information and discussion of care with specialty providers and PCP. Mechanical ventilator parameters, treatment and adjustments have personally been reviewed by me and treatment plan by freezer tunnel operator has also been reviewed. Dietary Evaluation Review Comments: 1. Consider EN/TPN if NPO >7days 2. Continue plan of care Expected Outcomes/Goals: 1. Pt will meet >75% of estimated needs within 2-3 days Plan discussed with: RELL Valle M MD Oct 03, 2024 13:51
[2024-10-03] MEDS: LACTULOSE 20Gm/30ML SOLN PO SCH (18:00)
[2024-10-03] MEDS: LORazepam 2MG/ML-1ML VIAL IV PRN (18:21)
--- NOTE | 2024-10-03 20:55 | DVHPN2 ---
Progress Note - Dictate Date Seen: Oct 03, 2024 Has the PT tested + for MRSA If YES, has PT been informed?: Yes Medical Necessity Reason Pt with a Central, PICC or Fol: Yes The following are medically ne: PICC Line, Betancourt Catheter Reason for betancourt catheter: Strict I&O Subjective extubated, on bipap vital signs Vital Sign Date Time Temp Pulse Resp B/P (MAP) Pulse Ox O2 Delivery O2 Flow Rate FiO2 10/03/24 20:31 109 18 93 10/03/24 20:00 Bi-Pap+ 40 40 10/03/24 20:00 98.6 98.6 10/03/24 14:00 0 Total Intake and Output 10/02/24 10/02/24 10/03/24 15:00 23:00 07:00 Intake Total 304.00 ml 438.00 ml 664.25 ml Output Total 500 ml 1150 ml Balance -196.00 ml 438.00 ml -485.75 ml medications Current Medications Medications Dose Ordered Sig/[place] Route Start Time Stop Time Status Last Admin Dose Admin Pantoprazole Sodium 40 mg DAILY IV 09/04/24 10:00 10/03/24 10:00 40 MG Sodium Chloride 10 ml QSHIFT@10,22 IV 09/13/24 22:00 10/03/24 10:00 10 ML Albuterol 2.5 mg Q6HPRN PRN NEB 09/21/24 19:00 10/03/24 12:33 2.5 MG Ipratropium [place] 0.5 mg Q6HPRN PRN NEB 09/21/24 19:00 10/03/24 12:33 0.5 MG Midazolam HCl 50 ml @ 1 mls/hr Q24H IV 09/22/24 19:45 10/03/24 06:30 3 MLS/HR Enteral Nutritional Formula 1,000 ml 30ML/HR GT 09/23/24 12:30 09/30/24 16:31 1,000 ML Potassium Chloride/Sodium Chloride 1,000 ml @ 50 mls/hr Q20H IV 09/25/24 12:00 Cancel Furosemide 40 mg DAILY IV 09/28/24 10:00 10/03/24 11:00 40 MG Acetaminophen 650 mg Q6HP PRN GT 09/30/24 11:45 Meropenem 50 ml @ 17 mls/hr Q8HR IV 09/30/24 14:00 10/03/24 15:00 17 MLS/HR Norepinephrine Bitartrate 250 ml @ 3.75 mls/hr Q24H IV 09/30/24 15:15 10/02/24 06:15 3.75 MLS/HR Sennosides 8.6 mg HS PO 10/01/24 22:00 10/02/24 21:41 8.6 MG Metoclopramide HCl 10 mg TID IV 10/01/24 18:00 10/03/24 15:00 10 MG Fentanyl Citrate 250 ml @ 2.5 mls/hr Q24H IV 10/01/24 23:00 10/03/24 06:29 25 MLS/HR Lactulose 30 ml Q6HR PO 10/03/24 18:00 Lorazepam 0.5 mg Q4HP PRN IV 10/03/24 15:15 10/03/24 18:21 0.5 MG objective General: Intubated and sedated HEENT: Atraumatic,intubated Neck: No swelling Lungs: Equal air entry and clear to auscultation Cardiovascular: S1 S2 heard no murmur Abdomen: Soft nontender, no organomegaly, nondistended Neuro: sedated, unable to assess Psych: unable to assess laboratory and microbiology Laboratory Tests 10/03/24 03:16 Test 10/03/24 03:16 Range/Units Serum Glucose 102 74-106 mg/dL Assessment/Plan Patient is a 63-year-old female presented to the hospital with: failed extubation, reintubated Staphylococcus aureus pneumonia ( MRSA) Streptococcus Pneumoniae pneumonia Septic shock resolving bacteremia : coag neg staphylococccus, possible contamination Acute Respiratory Failure [requiring mechanical ventilation] severe hypoxia Metabolic acidosis FEDE Morbidly obese BMI = 40 PE history Recommendations: Reintubation on 09/22. extubated on 10/03, on bipap Continue IV vancomycin [Restarted on 09/27 ] and now on meropenem ( since 09/30- : no clear indication for MEroepenm. Discontinued Levaquin 09/30 I feel she is already received prolonged course of antibiotics for MRSA pneumonia. 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 Patient had difficult extubation in the past, 4 years ago when she was intubated for surgery as per records. 09/26, Wound culture preliminary: Coagulase Negative Staphylococcus Antibiotics review Cefepime 09/02- 09/06 Meropenem 09/03-09/05 Ceftriaxone 09/07-ongoing last given 09/18 Vancomycin 09/03- 09/11 Linezolid 09/11- ongoing - 09/17 last given Blood culture:co ag neg staph, i think its contaminated. Recent on 09/07 showed no growth Pulmonary on board for vent management full code prognosis guarded crit time 35 mins spent during the encounter. Thank you for consult and for giving an opportunity to take care of this patient. Dietary Evaluation Review Comments: 1. Consider EN/TPN if NPO >7days 2. Continue plan of care Expected Outcomes/Goals: 1. Pt will meet >75% of estimated needs within 2-3 days Plan discussed with: ANGELLA Peng MD Oct 03, 2024 20:55
--- NOTE | 2024-10-03 21:07 | DVHPN2 ---
Progress Note - Dictate Date Seen: Oct 03, 2024 Has the PT tested + for MRSA If YES, has PT been informed?: Yes Medical Necessity Reason Pt with a Central, PICC or Fol: Yes The following are medically ne: PICC Line, Betancourt Catheter Reason for betancourt catheter: Strict I&O Subjective Patient seen and examined at bedside. S/p extubation, placed on BiPAP Overnight events reviewed. vital signs Vital Sign Date Time Temp Pulse Resp B/P (MAP) Pulse Ox O2 Delivery O2 Flow Rate FiO2 10/03/24 20:31 109 18 93 10/03/24 20:00 Bi-Pap+ 40 40 10/03/24 20:00 98.6 98.6 10/03/24 14:00 0 Total Intake and Output 10/02/24 10/02/24 10/03/24 15:00 23:00 07:00 Intake Total 304.00 ml 438.00 ml 664.25 ml Output Total 500 ml 1150 ml Balance -196.00 ml 438.00 ml -485.75 ml medications Current Medications Medications Dose Ordered Sig/Acacia Route Start Time Stop Time Status Last Admin Dose Admin Pantoprazole Sodium 40 mg DAILY IV 09/04/24 10:00 10/03/24 10:00 40 MG Sodium Chloride 10 ml QSHIFT@ IV 09/13/24 22:00 10/03/24 10:00 10 ML Albuterol 2.5 mg Q6HPRN PRN NEB 09/21/24 19:00 10/03/24 12:33 2.5 MG Ipratropium Viola 0.5 mg Q6HPRN PRN NEB 09/21/24 19:00 10/03/24 12:33 0.5 MG Midazolam HCl 50 ml @ 1 mls/hr Q24H IV 09/22/24 19:45 10/03/24 06:30 3 MLS/HR Enteral Nutritional Formula 1,000 ml 30ML/HR GT 09/23/24 12:30 09/30/24 16:31 1,000 ML Potassium Chloride/Sodium Chloride 1,000 ml @ 50 mls/hr Q20H IV 09/25/24 12:00 Cancel Furosemide 40 mg DAILY IV 09/28/24 10:00 10/03/24 11:00 40 MG Acetaminophen 650 mg Q6HP PRN GT 09/30/24 11:45 Meropenem 50 ml @ 17 mls/hr Q8HR IV 09/30/24 14:00 10/03/24 15:00 17 MLS/HR Norepinephrine Bitartrate 250 ml @ 3.75 mls/hr Q24H IV 09/30/24 15:15 10/02/24 06:15 3.75 MLS/HR Sennosides 8.6 mg HS PO 10/01/24 22:00 10/02/24 21:41 8.6 MG Metoclopramide HCl 10 mg TID IV 10/01/24 18:00 10/03/24 15:00 10 MG Fentanyl Citrate 250 ml @ 2.5 mls/hr Q24H IV 10/01/24 23:00 10/03/24 06:29 25 MLS/HR Lactulose 30 ml Q6HR PO 10/03/24 18:00 Lorazepam 0.5 mg Q4HP PRN IV 10/03/24 15:15 10/03/24 18:21 0.5 MG objective Gen.: Patient lying in bed in no apparent distress. On BiPAP Head: Normocephalic, atraumatic. Eyes: EOMI/PERRLA. Ears: Normal hearing. Normal anatomy. Neck/trachea: Trachea midline, supple. Nose: Normal external anatomy. Mouth: Moist mucous membranes. Chest: Decreased air entry bilaterally. No wheezing or rhonchi. Cardiovascular: Positive S1, positive S2. Regular rate and rhythm. Abdomen: Positive bowel sounds in all 4 quadrants. Soft, non-tender, non- distended. : Deferred. Rectal: Deferred. Skin: Warm, dry. Intact. Extremities: 2+ radial pulses bilaterally. No lower extremity edema. Neuro: Awake, alert, oriented x3. No gross motor or sensory deficits. Cranial nerves II through XII intact. Gait not assessed. laboratory and microbiology Laboratory Tests 10/03/24 03:16 Test 10/03/24 03:16 Range/Units Serum Glucose 102 74-106 mg/dL Assessment/Plan Impression: Acute on chronic hypoxic respiratory failure On mechanical ventilator Pulmonary edema Pleural effusion, left Atelectasis Leukocytosis Lactic acidosis Morbid obesity, BMI 40 Events: Patient tolerated CPAP trial, was extubated uneventfully Placed on BiPAP with IPAP 12, EPAP 5, FiO2 40%. Transition to low flow oxygen in the AM. Off sedation Off pressors, hemodynamically stable. ABG reviewed, compensated. CXR demonstrates low lung volumes with small bilateral pleural effusions and bibasilar airspace opacities which may represent atelectasis versus consolidation or infectious process. No pneumothorax. Mild improvement in pulmonary vascular congestion. Continue bronchodilators Continue antibiotics Elevated calcium, get redraw in the AM. Tube feeds for nutritional support Potassium supplementation Monitor renal function Monitor electrolytes. Supplement as necessary. Head of bed elevation Aspiration precautions Awaiting family decision for goals of care. Continue to monitor respiratory status closely. Poor prognosis due to multiorgan failure - renal, respiratory and liver failure. Labs and imaging reviewed. Rest of plan as noted below. Plan: s/p extubation On BiPAP with IPAP 12, EPAP 5, FiO2 40%. Transition to low flow oxygen in the AM. Bronchodilators Pressors if necessary for hemodynamic support. Titrate to keep MAP above 65 mmHg/SBP above 90 mmHg. Antibiotics (Vancomycin stopped d/t kidney failure). F/u cultures. Monitor renal function Monitor ins/outs. Monitor electrolytes. Supplement as necessary. Monitor lactic acid On IVF Nutritional support. GI/DVT prophylaxis. Condition: Critical Prognosis: Poor given multiple comorbidities. Rest of plan per hospitalist and other consultants. A total of 35 minutes of critical care time was spent reviewing the patient record, examining the patient, making a diagnostic and therapeutic plan, discussing this plan with the medical personnel, following up on diagnostic studies and following the patient for clinical stability excluding any and all procedures. At least 50% of this time was spent in direct, [id number] contact. Thank you Dr. Banda for allowing me to participate in this patient's care. Further recommendations will depend on patient's clinical course. Please do not hesitate to contact me if you have any questions or concerns. This medical document was created using an electronic medical record system with [employer] system. Although this document has been carefully reviewed, there may still be some phonetic and typographical errors. These areas are purely typographical due to imperfections of the software programs, and do not reflect any compromise in the patient's medical care. Dietary Evaluation Review Comments: 1. Consider EN/TPN if NPO >7days 2. Continue plan of care Expected Outcomes/Goals: 1. Pt will meet >75% of estimated needs within 2-3 days Plan discussed with: Other (DEIDRE Louis) Critical Care Time(min): 35 SHAI SINGH MD Oct 03, 2024 21:06
[2024-10-04] VITALS (97 sets, daily range): BP systolic 86–181; BP diastolic 50–119; PULSE 73–126; RESP 11–39; TEMP 98.2–100.1; O2SAT 87–99
[2024-10-04 00:17] LABS: Base Excess 4.3 mmol/L (-2.0-3.0)
[2024-10-04 03:29] LABS: Basophils # (auto) 0.1 10 ^3/uL (0-0.2); Basophils % (auto) 0.9 % (0.0-2.0); Eosinophils # (auto) 0.3 10 ^3/uL (0-0.8); Eosinophils % (auto) 2.4 % (0.0-7.0); Hematocrit 39.4 % (36.0-46.0); Hemoglobin 12.8 g/dL (12.2-16.2); Lymphocytes # (auto) 1.3 10 ^3/uL (0.4-5.4); Lymphocytes % (auto) 9.4 % (10.0-50.0); Mean Corpuscular Hemoglobin 29.1 pg (28.0-32.0); Mean Corpuscular Hgb Conc. 32.5 g/dL (32.0-36.0); Mean Corpuscular Volume 89.3 fL (80.0-100.0); Monocytes # (auto) 1.7 10 ^3/uL (0-1.3); Monocytes % (auto) 12.3 % (0.0-12.0); Neutrophils # (auto) 10.6 10 ^3/uL (1.6-8.6); Platelet Count (auto) 449 10^3/uL (140-450); Red Blood Cells 4.41 10^6/uL (4.0-5.20); Red Cell Distribution Width 14.4 % (11.8-14.3); White Blood Cell 14.2 10^3/uL (4.4-10.8)
[2024-10-04 03:42] LABS: Alanine Aminotransferase 20 U/L (7-40); Albumin 3.8 g/dL (3.2-4.8); Anion Gap 9 (5-15); Aspartate Aminotransferase 26 U/L (13-40); Bilirubin, Total 0.5 mg/dL (0.2-1.0); Blood Urea Nitrogen 17 mg/dL (9-23); Carbon Dioxide 30 mmol/L (20-31); Total Protein 6.9 g/dL (5.7-8.2)
[2024-10-04 04:21] LABS: Alkaline Phosphatase 127 U/L (46-116); Calcium 13.2 mg/dL (8.7-10.4); Chloride 108 mmol/L (98-107); Glucose 108 mg/dL (74-106); Potassium 3.1 mmol/L (3.5-5.1); Sodium 147 mmol/L (136-145)
[2024-10-04] MEDS ORDERED: LABETALOL HCL 20 MG/4 ML VL IV PRN ×2 (05:15)
[2024-10-04] MEDS: POTASSIUM CHL 20MEQ/100ML 100 ML IV ONE ×2 (05:57→09:13)
[2024-10-04] MEDS: fentaNYL 25MCG/HR 25 MCG/HR PAT TD SCH (09:15)
--- NOTE | 2024-10-04 10:00 | DVH ---
CHEST RADIOGRAPH Indication: fu Technique: Single frontal view of the chest was obtained COMPARISON: XY CHEST PORTABLE on DOS: 10/03/24, XY CHEST PORTABLE on DOS: 10/02/24, XY CHEST XRAY 1 V IEW on DOS: 10/01/24, XY CHEST XRAY 1 VIEW on DOS: 09/30/24, XY CHEST XRAY 1 VIEW on DOS: 09/29/24 FINDINGS: Lines and Tubes: None Lungs: Bibasilar subsegmental atelectasis. Pleura: No effusion. No pneumothorax. Cardiomediastinal contours: Unremarkable Bones: Unremarkable IMPRESSION: Bibasilar subsegmental atelectasis.
[2024-10-04 11:30] LABS: Alanine Aminotransferase 18 U/L (7-40); Anion Gap 8 (5-15); BUN/Creatinine Ratio 15.9 (10.0-20.0); Blood Urea Nitrogen 17 mg/dL (9-23); Carbon Dioxide 29 mmol/L (20-31); Glucose 96 mg/dL (74-106); Potassium 3.7 mmol/L (3.5-5.1)
[2024-10-04] MEDS: CALCITONIN 400unit/2ml Vial (200unit/ml) SC ONE (11:30)
[2024-10-04 11:31] LABS: Albumin 3.7 g/dL (3.2-4.8); Aspartate Aminotransferase 27 U/L (13-40); Bilirubin, Total 0.5 mg/dL (0.2-1.0); Total Protein 6.7 g/dL (5.7-8.2)
[2024-10-04 11:34] LABS: Alkaline Phosphatase 127 U/L (46-116); Chloride 109 mmol/L (98-107); Sodium 146 mmol/L (136-145)
[2024-10-04 11:41] LABS: Calcium 13.3 mg/dL (8.7-10.4)
[2024-10-04] MEDS: ROCURONIUM 10MG/ML 10ML VIAL IV ONE ×2 (11:52→12:00)
[2024-10-04] MEDS: ETOMIDATE (2MG/ML) 20ML VIAL IV ONE ×2 (11:52→11:55)
[2024-10-04] MEDS: fentaNYL Drip 2500mCg/250mlNS 250 ML IV SCH (12:02)
--- NOTE | 2024-10-04 12:11 | DVHPNRES ---
Progress Note Date Seen: Oct 04, 2024 Resident Creating Document: NAN AMAYA RESIDENT Has the PT tested + for MRSA If YES, has PT been informed?: Yes Medical Necessity Reason Pt with a Central, PICC or Fol: Yes The following are medically ne: PICC Line, Betancourt Catheter Reason for betancourt catheter: Strict I&O Subjective Review of Systems This is a 63-year-old female patient with PMHx of PE in 2015, multiple abdominal surgeries including hernia and bowel obstruction, lasts hernia surgery [place] [address] Anaya, right distal ureteral calculus in February 2024, AKA, rib fractures, chronic nicotine dependence in polysubstance use including methamphetamine and cannabis presented to the ER with a chief complaint of shortness of breaths. She was successfully intubated on 09/02. Per patient's daughter, patient became short of breath and febrile at 102.7 F, and therefore they had to call [facility]. Patient was saturating at 70% and therefore the patient was brought to the ER. She was intubated once before 4 years back after abdominal surgery at [facility] where she experienced difficult extubation. Patient is a nonsmoker for more than 50 years, currently smokes more than 1 pack a day. 09/05 - 2 small granulating wounds on abdomen are suture granulomas, sutures removed by surgeon 09/28 - Patient seen and examined at the bedside. Overnight patient became bradycardic, pulse was 30s, telemetry reviewed rhythm was regular, likely sinus bradycardia, sedation was turned off and the patient's pulse went up to 58 beats per minute which is her baseline. No bowel movements overnight. Patient made around 950 cc of urine. 40 mEq of potassium supplement and 2 g magnesium supplemented. Continue IV vancomycin and levofloxacin. Id on board. CPAP trial ended early as the patient became tachypneic with RR of 46/min. Raised Jevity 1.2 to 40 mL/hour. 09/29 - patient is sedated and mechanically intubated. Overnight patient made 450 mL of urine. ABG in the a.m. shows respiratory alkalosis, CO2 decreased from 38-32 and bicarb decreased from 25-22. Corrected calcium 12.3. PTH level 19. Chest x-ray shows left-sided aeration is better than as compared to when on admission. Patient underwent CPAP trial which and that as the patient became tachypneic. Discussed the option of tracheostomy with patient's daughter Toshia, she said that the family and herself does not want tracheostomy and did not think that patient would want tracheostomy. Patient's family requesting for bronchoscopy. Dr. Luis consulted for bronchoscopy per patient's family request. Bronchoscopy performed 09/29 shows Right lower lobe atelectasis due to mucous plugging. Mucous plugging from R6-R10 K 2.9, 80 mEq replenished. Mag 1.7, 2 g replenished. 09/30-patient seen and examined at bedside. 625 mL of urine overnight. 2 L of urine during the day of 09/29. No bowel movement. Lactulose started. T-max of 99.6 overnight. DC Levaquin today started meropenem. Family meeting for over 50 minutes today. Family declined tracheostomy, per daughter the patient would be very upset on tracheostomy and it would be a burden on her. CPAP trial earlier next week. 10/01 - patient seen and examined at bedside. DC Diflucan. Started Reglan IV 10 mg TID, started Colace and senna, lactulose increased to b.i.d.. Chest x-ray shows worsening pulmonary vascular congestion and bilateral effusion. Last bowel movement was on 23 September. Cumulative intake output less 4 L. ABG shows metabolic alkalosis with respiratory acidosis. Consider Diamox if patient becomes more alkalotic. 10/04 - over night T-max 99.7, pulse 110, blood pressure elevated to 181/103. Corrected calcium 13.2. Patient received 1 dose of calcitonin SC. Patient was tachypneic on BiPAP, rate in the range of 47-51. Patient was altered. Called family, per Toshia - family decided to go for tracheostomy, consult received for re-intubation. Patient reintubated at 12:10 p.m. ETT retracted 2 cm. Chest x- ray in a.m.. Surgeon consulted for tracheostomy. Planning tracheostomy on 07 October. Initiated half NS at 75 cc/hour. DC meropenem, switched to ceftriaxone and continue vancomycin. ABG showed compensated metabolic alkalosis. Last BM on . Objective vital signs Vital Sign Date Time Temp Pulse Resp B/P (MAP) Pulse Ox O2 Delivery O2 Flow Rate FiO2 10/04/24 11:05 107 106/85 94 Facial BiPAP Mask 35 10/04/24 08:00 33 10/04/24 04:00 98.2 98.2 10/03/24 14:00 0 Total Intake and Output 10/03/24 10/03/24 10/04/24 15:00 23:00 07:00 Intake Total 35.5 ml 295 ml 50 ml Output Total 850 ml 350 ml Balance 35.5 ml -555 ml -300 ml medications Current Medications Medications Dose Ordered Sig/Acacia Route Start Time Stop Time Status Last Admin Dose Admin Pantoprazole Sodium 40 mg DAILY IV 09/04/24 10:00 10/04/24 09:46 40 MG Sodium Chloride 10 ml QSHIFT@10,22 IV 09/13/24 22:00 10/04/24 09:30 10 ML Albuterol 2.5 mg Q6HPRN PRN NEB 09/21/24 19:00 10/03/24 12:33 2.5 MG Ipratropium [place] 0.5 mg Q6HPRN PRN NEB 09/21/24 19:00 10/03/24 12:33 0.5 MG Midazolam HCl 50 ml @ 1 mls/hr Q24H IV 09/22/24 19:45 10/03/24 06:30 3 MLS/HR Enteral Nutritional Formula 1,000 ml 30ML/HR GT 09/23/24 12:30 09/30/24 16:31 1,000 ML Potassium Chloride/Sodium Chloride 1,000 ml @ 50 mls/hr Q20H IV 09/25/24 12:00 Cancel Acetaminophen 650 mg Q6HP PRN GT 09/30/24 11:45 Meropenem 50 ml @ 17 mls/hr Q8HR IV 09/30/24 14:00 10/04/24 05:22 17 MLS/HR Norepinephrine Bitartrate 250 ml @ 3.75 mls/hr Q24H IV 09/30/24 15:15 10/02/24 06:15 3.75 MLS/HR Sennosides 8.6 mg HS PO 10/01/24 22:00 10/02/24 21:41 8.6 MG Metoclopramide HCl 10 mg TID IV 10/01/24 18:00 10/04/24 05:22 10 MG Fentanyl Citrate 250 ml @ 2.5 mls/hr Q24H IV 10/01/24 23:00 Hold 10/03/24 06:29 25 MLS/HR Lactulose 30 ml Q6HR PO 10/03/24 18:00 Lorazepam 0.5 mg Q4HP PRN IV 10/03/24 15:15 10/04/24 11:30 0.5 MG Labetalol HCl 10 mg Q6HPRN PRN IV 10/04/24 05:15 Fentanyl 25 mcg Q72H TD 10/04/24 09:15 Examination Obese female patient lying in bed, in no acute distress RASS -5 General: Morbidly obese, afebrile, palor, mucosae are moist, dilated and sluggish light reflex Cardiovascular: Tachycardic but Regular S1 and S2. No murmurs, gallops or rubs. No JVD elevation. Lower and upper extremity resolving edema noticed. Respiratory: Equal bilateral air entry, saturating 92% on FiO2 of 35%. Abdomen: Abdomen is soft, hypoactive bowel sounds, multiple ventral hernia seen, right-sided dressing removed, no drainage noticed. Stage II decubitus ulcer seen with overlying erythema but no drainage noticed. Midline scar seen. Genitourinary: Betancourt catheter seen MSK/skin: Skin is dry and warm Neurological: Pupils are isocoric and reactive. laboratory and microbiology Laboratory Tests 10/04/24 10:45 10/04/24 03:09 Test 10/04/24 10:45 Range/Units Serum Glucose 96 74-106 mg/dL Microbiology Date/Time Source Procedure Growth Status 09/26/24 13:00 Abdomen Gram Stain - Final Complete 09/26/24 13:00 Wound Culture - Final Methicillin Resistant S.aureus Complete 09/24/24 10:59 Blood Blood Culture - Final NO GROWTH AFTER 5 DAYS OF INCUBATION. Complete 09/22/24 10:59 Sputum Gram Stain - Final Complete 09/22/24 10:59 Respiratory Culture - Final Methicillin Resistant S.aureus Presumptive Juju albicans Complete 09/11/24 00:00 Voided Urine Urine Culture - Final Complete 09/06/24 13:00 Vaginal Vaginal Culture - Final Enterococcus faecalis Methicillin Resistant S.aureus Complete Labs and/or images reviewed: Labs reviewed by me, Image(s) reviewed by me Problem List/Assessment/Plan Problem List/Assessment/Plan NEUROLOGY Acute metabolic encephalopathy likely due to septic shock - patient is sedated and mechanically ventilated, RASS -2 CARDIOVASCULAR Septic shock NSTEMI likely type 2 secondary to septic shock Probable right ventricular failure Prolonged QTC-resolved - cardiology recommended conservative management - echocardiogram shows dyskinesis of IVC, dilated RV and dilated RA. RV failure. Mild LVH and mild LV diastolic dysfunction with EF 65 % - blood culture 09/02 showed Staph hominis sensitive to vancomycin - repeat blood culture 09/11 showed Staphylococcus epidermidis sensitive to Cipro, clinda, linezolid, vancomycin - repeat blood culture 09/24 shows no growth - discontinued furosemide 40 mg IV daily starting 09/27 till 10/04 RESPIRATORY Acute hypoxic respiratory failure secondary to probable community-acquired pneumonia due to MRSA and S pneumo Advanced COPD Chronic nicotine dependence - patient was intubated and mechanically ventilated starting 09/02 - bronchoscopy completed 09/07, results showed MRSA positive - repeat bronchoscopy 09/08, showed comparatively lesser secretions - sputum culture 09/02 showed MRSA, strep pneumo - bronchial wash specimen collected 09/07 showed MRSA - repeat respiratory culture 09/22 showed MRSA and presumtive Juju albicans - received cefepime from 09/02 to 09/06 - received meropenem 11/03 to 09/05, - received vancomycin from 09/03 to 09/11 - received ceftriaxone 2 g daily from 09/13 to 09/19 - received linezolid from 09/11 to 09/17 - continue albuterol and ipratropium q.6 hour p.r.n. - restarted vancomycin 09/27 and ceftriaxone starting 10/04 - discontinued IV meropenem started from 09/30 till 10/04 - discontinued Diflucan-patient received from 09/27 till 10/01 - discontinued Levaquin 09/30 - 09/28 and 09/29 CPAP trial ended early as the patient became tachypneic with RR of 46/min. - 10/04- patient tachypneic on BiPAP, reintubated per family's request. Family considering tracheostomy. Consent signed. Surgeon consulted for tracheostomy - Dr. Luis consulted for bronchoscopy. Bronchoscopy performed 09/29 shows mucus plugs in the left upper lobe. GI History of multiple surgeries secondary to hernia and bowel obstruction Multiple ventral wall hernias Possible bowel obstruction Transaminitis secondary to septic shock Rhabdomyolysis likely secondary to immobilization Surgeon consulted-recommended conservative management, small varices could not be performed at this moment due to respiratory status of the patient Continue IV pantoprazole 40 mg daily Continue docusate /KIDNEY FEDE, likely secondary to VMN - resolved Probable pelvic inflammatory disease Hyponatremia-resolved Hypomagnesemia Hypercalcemia -corrected calcium 13.2, PTH 19 - creatinine downtrending - creatinine kinase downtrended from 8215 to 77 - nephrology consulted, last hemodialysis session was performed on 09/10 - urine bacterial culture 09/02 showed less than 00171 CFU of coagulase-negative Staphylococcus - vaginal culture 09/06 showed coagulase-negative Staphylococcus, Enterococcus faecalis, MRSA sensitive to daptomycin, linezolid, vancomycin, TMP SMX - patient had purulent vaginal discharge - 40 mEq potassium and 2 g of magnesium administered 09/28 - monitor calcium, received 1 dose of calcitonin on 10/04. ENDO Hypertriglyceridemia, TG 623 09/04, 320 at 09/15 Likely due to propofol, discontinued propofol Obesity - Continue Atorvastatin 40 mg ID Polysubstance use - Infectious disease consulted, continue management as above - Per patient's daughter, patient uses amphetamine, marijuana, smokes cigarettes - HIV testing negative - Hepatitis panel negative Hematology Lower extremity DVT - Ultrasound Doppler of lower extremities 08/15 shows nonocclusive DVT of the left popliteal vein - Continue Lovenox 100 mg b.i.d. - discontinue Lovenox prior to tracheostomy LINES ETT, intubated on 09/02/2024, reintubated 10/04 IV access Left upper arm PICC line, placed on 09/13 Drips: Versed 15 Propofol 15 Levophed 6 Fentanyl 250 Nutrition Jevity 40 mL/hour Goals of care/advance care planning; FULL CODE; discussed on for 24 minutes. PUD prophylaxis; therapeutic Lovenox DVT prophylaxis; pantoprazole 40 mg IV daily Case discussed with Dr. Pinon. 10/04- patient tachypneic on BiPAP, reintubated per family's request. Family considering tracheostomy. Consent signed. Surgeon consulted for tracheostomy. Consider Diamox if the patient remains alkalotic Plan discussed with the patient's daughter over the bedside for more than 50 minutes, code status full code Critical care time including review of chart, discussion with the family, BiPAP trial, excluding procedures: 83 minutes Plan discussed with: Patient, Daughter (Over the phone) My Orders My Orders Orders - NAN AMAYA RESIDENT Procedure Category Date Status Time Chest Portable XY 10/04/24 Resulted 06:59 Abg W/ Co-Ox RT 10/04/24 Logged 11:37 * Surgical Consult CONS 10/04/24 Transmitted Type And Screen BBK 10/04/24 Transmitted 12:09 Dietary Evaluation Review Comments: 1. Consider EN/TPN if NPO >7days 2. Continue plan of care Expected Outcomes/Goals: 1. Pt will meet >75% of estimated needs within 2-3 days Date of Service: Oct 04, 2024 Billing Provider: DANE PINON MD Common Visit Codes: 10355-IOBHYHBY CARE 30-74 MIN, 99251-FRSTBAEJ CARE-EACH +30MIN NAN AMAYA RESIDENT Oct 04, 2024 12:11 DANE PINON MD Oct 05, 2024 13:11
[2024-10-04] MEDS ORDERED: ENOXAPARIN SOD 40 MG/0.4 ML SYRINGE SC ONE (12:30)
[2024-10-04] MEDS ORDERED: VANCOMYCIN PER PHARMACY 0 MG IV SCH (12:45)
--- NOTE | 2024-10-04 12:48 | DVH ---
AP portable chest HISTORY: intubation Comparison: XY CHEST PORTABLE on DOS: 10/04/24, XY CHEST PORTABLE on DOS: 10/03/24, XY CHEST PORTABLE on DOS: 10/02/24 FINDINGS: End of the endotracheal tube is 1.6 cm above the teetee. There is atelectasis in both lung bases IMPRESSION: 1. Compared to previous exam patient has been intubated with the tip of the endotracheal tube 1.6 cm above the teetee . Recommend slight withdrawal
--- NOTE | 2024-10-04 13:27 | DVHINCON2 ---
Date of service: Oct 04, 2024 Family History: Diabetes mellitus G8 BROTHER FH: hypertension G8 FATHER Allergies: Coded Allergies: Hydrocodone (Verified Allergy, Mild, 09/02/24) Itchy Home Meds Active Scripts Tamsulosin Hcl (Flomax) 0.4 Mg Cap, 1 CAP PO HS, #10 CAP 11 Refills Prov:RADHA DE LA TORRE MD 02/25/24 Levofloxacin Hemihydrate (LEVAQUIN 500 MG) 500 Mg Tab, 1 TAB PO DAILY, #7 TAB Prov:RADHA DE LA TORRE MD 02/25/24 Current Medications Current Medications Medications (Trade) Dose Ordered Sig/Acacia Route PRN Reason Start Time Stop Time Status Last Admin Lactulose 30 ml Q6HR PO 10/03/24 18:00 Lorazepam (Ativan Inj) 0.5 mg Q4HP PRN IV ANXIETY 10/03/24 15:15 10/04/24 11:30 Labetalol HCl (Labetalol HCl) 10 mg BID PRN IV SBP>170 10/04/24 05:15 10/04/24 05:17 DC Labetalol HCl (Labetalol HCl) 10 mg Q6HPRN PRN IV SBP>170 10/04/24 05:15 Fentanyl (Duragesic 25mcg/ Hr) 25 mcg Q72H TD 10/04/24 09:15 Enoxaparin Sodium (Lovenox) 40 mg DAILY SC 10/05/24 10:00 10/04/24 12:32 DC Enoxaparin Sodium (Lovenox) 100 mg BID SC 10/04/24 12:30 UNV Vancomycin HCl 0 ml @ 0 mls/hr UD IV 10/04/24 12:45 UNV Vital Signs Vital Signs Date Time Temp Pulse Resp B/P (MAP) Pulse Ox O2 Delivery O2 Flow Rate FiO2 10/04/24 12:38 116 22 138/67 (90) 98 100 10/04/24 11:05 Facial BiPAP Mask 10/04/24 04:00 98.2 98.2 10/03/24 14:00 0 Labs/Diagnostic Data Labs Test 10/04/24 10:45 10/04/24 10:13 10/04/24 03:09 10/04/24 00:10 Range/Units Sodium Level 146 H 136-145 mmol/L Potassium Level 3.7 3.5-5.1 mmol/L Chloride Level 109 H 98-107 mmol/L Carbon Dioxide Level 29 20-31 mmol/L Anion Gap 8 5-15 Blood Urea Nitrogen 17 9-23 mg/dL Creatinine 1.07 H 0.550-1.02 mg/dL Glomerular Filtration Rate Calc 59 >90 mL/min BUN/Creatinine Ratio 15.9 10.0-20.0 Serum Glucose 96 74-106 mg/dL Calcium Level 13.3 *H 8.7-10.4 mg/dL Total Bilirubin 0.5 0.2-1.0 mg/dL Aspartate Amino Transferase (AST) 27 13-40 U/L Alanine Aminotransferase (ALT) 18 7-40 U/L Alkaline Phosphatase 127 H 46-116 U/L Total Protein 6.7 5.7-8.2 g/dL Albumin 3.7 3.2-4.8 g/dL Blood Gas Specimen Type Arterial Blood Gas Sample Site Right radial Blood Gas Patient Temperature 37.0 Arterial Blood Date Drawn [id number] Arterial Blood pH 7.471 H 7.350-7.450 Arterial Blood Partial Pressure CO2 42.4 32.0-45.0 mmHg Arterial Blood Partial Pressure O2 73.3 L 83.0-108.0 mmHg Arterial Blood HCO3 30.2 H 21.0-28.0 mmol/L Arterial Blood Oxygen Saturation 94.4 94.0-98.0 % Arterial Blood Base Excess 6.0 H -2.0-3.0 mmol/L Arterial Blood Oxyhemoglobin 93.8 L 94.0-98.0 % Arterial Blood Carboxyhemoglobin 0.4 L 0.5-1.5 % Arterial Blood Methemoglobin 0.2 0.0-1.5 % Cy Test Yes Blood Gas Total Hemoglobin 12.90 12.0-16.0 g/dL Blood Gas Set Respiration Rate 14.0 Blood Gas Modality Mask - bipap FiO2 % 35.0 Blood Gas Pressure Support 11 Blood Gas EPAP 5 Blood Gas IPAP 16 White Blood Count 14.2 #H 4.4-10.8 10^3/uL Red Blood Count 4.41 4.0-5.20 10^6/uL Hemoglobin 12.8 12.2-16.2 g/dL Hematocrit 39.4 36.0-46.0 % Mean Corpuscular Volume 89.3 80.0-100.0 fL Mean Corpuscular Hemoglobin 29.1 28.0-32.0 pg Mean Corpuscular Hemoglobin Concent 32.5 32.0-36.0 g/dL Red Cell Distribution Width 14.4 H 11.8-14.3 % Platelet Count 449 140-450 10^3/uL Mean Platelet Volume 8.2 6.9-10.8 fL Neutrophils (%) (Auto) 75.0 37.0-80.0 % Lymphocytes (%) (Auto) 9.4 L 10.0-50.0 % Monocytes (%) (Auto) 12.3 H 0.0-12.0 % Eosinophils (%) (Auto) 2.4 0.0-7.0 % Basophils (%) (Auto) 0.9 0.0-2.0 % Neutrophils # (Auto) 10.6 H 1.6-8.6 10 ^3/uL Lymphocytes # (Auto) 1.3 0.4-5.4 10 ^3/uL Monocytes # (Auto) 1.7 H 0-1.3 10 ^3/uL Eosinophils # (Auto) 0.3 0-0.8 10 ^3/uL Basophils # (Auto) 0.1 0-0.2 10 ^3/uL Nucleated Red Blood Cells 0.0 % Magnesium Level 2.2 1.6-2.6 mg/dL Random Vancomycin Level 20.4 H 5-10 ug/mL Blood Gas Spontaneous Rate 40 Blood Gas Tidal Volume 456.0 Specimen Drawn By L karlene rt Blood Gas Comments Test 10/03/24 11:36 10/03/24 03:16 09/30/24 03:31 09/29/24 21:24 Range/Units Blood Gas Inspiratory Pressure 15.0 Blood Gas PEEP or CPAP 5.0 Bl Gas Inspiratory/Expiratory Ratio 1:6.2 Phosphorus Level 4.3 2.4-5.1 mg/dL Differential Total Cells Counted 100.0 100 Neutrophils % (Manual) 41 37.0-80.0 Band Neutrophils % (Manual) 1 Lymphocytes % (Manual) 23 10.0-50.0 Monocytes % (Manual) 21 H 0-12 Eosinophils % (Manual) 14 H 0-7 Basophils % (Manual) 0 0.0-2.0 Metamyelocytes % (manual) 0 Myelocytes % (Manual) 0 Promyelocytes % (Manual) 0 Blast Cells % (Manual) 0 Reactive Lymphocytes 0 Platelet Estimate Adequate Vancomycin Level Trough 29.2 H 5-10 ug/mL Test 09/29/24 08:46 09/29/24 03:09 09/23/24 09:25 09/22/24 10:36 Range/Units Vitamin D 25-Hydroxy 8.2 L 30.0-100 ng/mL Large Platelets Few Stomatocytes Moderate Parathyroid Hormone (Intact) 19.4 18.4-80.1 pg/mL Urine Color Light-yellow Yellow Urine Clarity Turbid H Clear Urine pH 5.0 5.0-9.0 Urine Specific [place] 1.011 1.001-1.035 Urine Protein Negative Negative Urine Ketones Negative Negative Urine Blood 1+ H Negative /uL Urine Nitrite Negative Negative Urine Bilirubin Negative Negative Urine Urobilinogen Normal Negative mg/dL Urine Leukocyte Esterase 1+ Negative /uL Urine RBC 33 0 - 4 /hpf Urine WBC 14 0 - 5 /hpf Urine Squamous Epithelial Cells Few <5 /hpf Urine Bacteria None seen None Seen /hpf Urine Hyaline Casts Many 0 - 2 /lpf Urine Mucus Few None Seen Urine Yeast (Budding) Moderate None Seen /hpf Urine Creatinine 24.25 L 30.0-125.0 mg/dL Urine Sodium 109 40-220 mmol/L Urine Glucose Normal Normal mg/dL Blood Gas Liter Flow 70.00 Test 09/21/24 09:55 09/21/24 03:09 09/18/24 16:25 09/18/24 07:59 Range/Units Blood Gas Notified Time [id number] Creatine Kinase 77 34-145 U/L Blood Gas Spontaneous Tidal Volume 450 Blood Gas Critical Value Read Back Yes Test 09/16/24 06:45 09/16/24 03:28 09/15/24 03:53 09/12/24 03:05 Range/Units Blood Gas Notified Whom bandar enriquez Blood Gas Notified By afia garcia HIV (1&2) Antibody Negative Negative Triglycerides Level 320 H < 150 mg/dL Erythrocyte Sedimentation Rate 66 H 0-20 mm/hr C-Reactive Protein High Sensitivity 13.19 H <1.0 mg/dL Test 09/08/24 03:23 09/07/24 11:53 09/06/24 03:00 09/05/24 03:20 Range/Units Red Blood Cell Morphology Normal POC Glucose 135 H 70-106 mg/dl Anisocytosis (manual) Slight Target Cells Few Prothrombin Time 10.9 9.3-11.8 sec Prothrombin Time INR 1.03 0.9-1.15 Activated Partial Thromboplast Time 27.0 24.5-34.5 SEC Hepatitis A IgM Antibody Negative Hepatitis B Surface Antigen Negative Negative Hepatitis B Core IgM Antibody Negative Hepatitis C Antibody Negative Negative Uric Acid 9.8 H 3.1-7.8 mg/dL Test 09/04/24 15:52 09/04/24 14:26 09/04/24 04:10 09/02/24 19:17 Range/Units Lactic Acid Level 1.1 0.4-2.0 mmol/L Urine Amorphous Crystals Few None Seen /hpf Urine Total Protein 253.7 H 1-14 mg/dL Smudge Cells 1 /100 WBC Clumped Platelets Few Hemoglobin A1c 5.7 <5.7 % A1C Ammonia 21 11-32 umol/L Lactate Dehydrogenase 436 H 120-246 U/L Cholesterol Level 145 < 200 mg/dL LDL Cholesterol < 100 mg/dL HDL Cholesterol 10 L 40-59 mg/dL Lipase 26 12-53 U/L Thyroid Stimulating Hormone (TSH) 0.83 0.55-4.78 uIU/mL Troponin I High Sensitivity 72 *H </=34 ng/L Test 09/02/24 18:49 09/02/24 16:28 09/02/24 15:29 Range/Units SARS-CoV-2 Antigen (Rapid) Negative NEGATIVE Toy Cells Moderate B-Type Natriuretic Peptide 249.65 0-100 pg/mL Influenza Type A Antigen Negative Negative Influenza Type B Antigen Negative Negative Microbiology Date/Time Source Procedure Growth Status 09/26/24 13:00 Abdomen Gram Stain - Final Complete 09/26/24 13:00 Wound Culture - Final Methicillin Resistant S.aureus Complete 09/24/24 10:59 Blood Blood Culture - Final NO GROWTH AFTER 5 DAYS OF INCUBATION. Complete 09/22/24 10:59 Sputum Gram Stain - Final Complete 09/22/24 10:59 Respiratory Culture - Final Methicillin Resistant S.aureus Presumptive Juju albicans Complete 09/11/24 00:00 Voided Urine Urine Culture - Final Complete 09/06/24 13:00 Vaginal Vaginal Culture - Final Enterococcus faecalis Methicillin Resistant S.aureus Complete Assessment [id number] VENTILATOR STATUS REINTUBATED THREE TIMES CONSIDER TRACH BASED ON ONGOING EVAL, CONSENT PENDING MAY NEED CARDIOLOGY NEPHROLOGY CLEARANCE Plan discussed with: Other MAZIN RUIZ MD Oct 04, 2024 13:27
[2024-10-04 13:38] LABS: Base Excess 4.7 mmol/L (-2.0-3.0)
[2024-10-04] MEDS ORDERED: VANCOMYCIN 1GM/250ML KIT 250 ML IV SCH (14:00)
[2024-10-04] MEDS: ENOXAPARIN SOD 40 MG/0.4 ML SYRINGE SC SCH (14:00)
[2024-10-04] MEDS: PROPOFOL 100 ML IV ONE ×2 (14:10→18:07)
--- NOTE | 2024-10-04 14:48 | DVHINCON2 ---
DATE OF CONSULTATION: 10/04/2024 HISTORY OF PRESENT ILLNESS: This patient is 63 years old with past medical history of obesity, umbilical hernia, multiple ventral hernias were noted, and multiple abdominal surgeries also. Presents to the emergency room with worsening shortness of breath and she was intubated and has been extubated and reintubated two more times and I was asked to see her with regards to possibility of a tracheostomy and at this point she is also having evaluation by Infectious Disease, Nephrology, and Cardiology. PAST SURGICAL HISTORY: As mentioned above. PHYSICAL EXAMINATION: VITAL SIGNS: Currently just got reintubated. Vitals signs are stable. HEENT: Mildly pale. No cyanosis or jaundice. NECK: Supple and nontender with no thyromegaly or lymphadenopathy. CHEST AND LUNGS: Clear. HEART: Within normal limits. ABDOMEN: Soft. Difficult to evaluate and she has had surgical procedures done. Please refer to records for those. NEUROLOGICAL: Not assessed. EXTREMITIES: Unremarkable. CLINICAL IMPRESSION: Ventilator dependence, reintubation three times. PLAN: Consider tracheostomy. Consent needs to be obtained and needs to be cleared by Cardiology and Nephrology for tracheostomy. MD CELESTINE Rob/DASHA TID: [id number] RECEIPT: [id number] cc: Aj Banda MD
[2024-10-04] MEDS: PROPOFOL 100 ML IV SCH (14:50)
--- NOTE | 2024-10-04 16:31 | DVHPN2 ---
Progress Note - Dictate Date Seen: Oct 04, 2024 Has the PT tested + for MRSA If YES, has PT been informed?: Yes Medical Necessity Reason Pt with a Central, PICC or Fol: Yes The following are medically ne: PICC Line, Betancourt Catheter Reason for betancourt catheter: Strict I&O Subjective Patient intubated again , she failed again extubation Bronchoscopy performed 09/29 shows mucus plugs in the left upper lobe. 10/02, Chest x-ray showed - Compared to previous exam patient has been intubated with the tip of the endotracheal tube 1.6 cm above the teetee. Recommend slight withdrawal vital signs Vital Sign Date Time Temp Pulse Resp B/P (MAP) Pulse Ox O2 Delivery O2 Flow Rate FiO2 10/04/24 16:06 86/59 10/04/24 15:43 94 22 94 60 10/04/24 11:05 Facial BiPAP Mask 10/04/24 04:00 98.2 98.2 10/03/24 14:00 0 Total Intake and Output 10/03/24 10/03/24 10/04/24 15:00 23:00 07:00 Intake Total 35.5 ml 295 ml 50 ml Output Total 850 ml 350 ml Balance 35.5 ml -555 ml -300 ml medications Current Medications Medications Dose Ordered Sig/Acacia Route Start Time Stop Time Status Last Admin Dose Admin Pantoprazole Sodium 40 mg DAILY IV 09/04/24 10:00 10/04/24 09:46 40 MG Sodium Chloride 10 ml QSHIFT@10,22 IV 09/13/24 22:00 10/04/24 09:30 10 ML Albuterol 2.5 mg Q6HPRN PRN NEB 09/21/24 19:00 10/03/24 12:33 2.5 MG Ipratropium [place] 0.5 mg Q6HPRN PRN NEB 09/21/24 19:00 10/03/24 12:33 0.5 MG Midazolam HCl 50 ml @ 1 mls/hr Q24H IV 09/22/24 19:45 10/04/24 15:22 15 MLS/HR Enteral Nutritional Formula 1,000 ml 30ML/HR GT 09/23/24 12:30 09/30/24 16:31 1,000 ML Potassium Chloride/Sodium Chloride 1,000 ml @ 50 mls/hr Q20H IV 09/25/24 12:00 Cancel Acetaminophen 650 mg Q6HP PRN GT 09/30/24 11:45 Norepinephrine Bitartrate 250 ml @ 3.75 mls/hr Q24H IV 09/30/24 15:15 10/02/24 06:15 3.75 MLS/HR Sennosides 8.6 mg HS PO 10/01/24 22:00 10/02/24 21:41 8.6 MG Metoclopramide HCl 10 mg TID IV 10/01/24 18:00 10/04/24 14:00 10 MG Lactulose 30 ml Q6HR PO 10/03/24 18:00 Lorazepam 0.5 mg Q4HP PRN IV 10/03/24 15:15 10/04/24 11:30 0.5 MG Labetalol HCl 10 mg Q6HPRN PRN IV 10/04/24 05:15 Fentanyl 25 mcg Q72H TD 10/04/24 09:15 Hold Enoxaparin Sodium 100 mg BID SC 10/04/24 12:30 10/04/24 14:00 100 MG Vancomycin HCl 0 ml @ 0 mls/hr UD IV 10/04/24 12:45 Fentanyl Citrate 250 ml @ 2.5 mls/hr Q24H IV 10/04/24 15:00 10/04/24 12:02 2.5 MLS/HR Ceftriaxone Sodium 50 ml @ 100 mls/hr DAILY@09 IV 10/05/24 09:00 objective General: Intubated and sedated HEENT: Atraumatic,intubated Neck: No swelling Lungs: Equal air entry and clear to auscultation Cardiovascular: S1 S2 heard no murmur Abdomen: Soft nontender, no organomegaly, nondistended Neuro: sedated, unable to assess Psych: unable to assess laboratory and microbiology Laboratory Tests 10/04/24 10:45 10/04/24 03:09 Test 10/04/24 10:45 Range/Units Serum Glucose 96 74-106 mg/dL Assessment/Plan Patient is a 63-year-old female presented to the hospital with: failed extubation, reintubated again Staphylococcus aureus pneumonia ( MRSA) Streptococcus Pneumoniae pneumonia Septic shock resolving bacteremia : coag neg staphylococccus, possible contamination Acute Respiratory Failure [requiring mechanical ventilation] severe hypoxia Metabolic acidosis FEDE Morbidly obese BMI = 40 PE history Recommendations: Reintubationagain today 10/04, and previosly 09/22. Dc meropenem ( no cultures indicative ) Continue IV vancomycin [Restarted on 09/27 ] and now on meropenem ( since 09/30- : no clear indication for MEroepenm. Discontinued Levaquin 09/30 I feel she is already received prolonged course of antibiotics for MRSA pneumonia. 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 Patient had difficult extubation in the past, 4 years ago when she was intubated for surgery as per records. 09/26, Wound culture preliminary: Coagulase Negative Staphylococcus Antibiotics review Cefepime 09/02- 09/06 Meropenem 09/03-09/05 Ceftriaxone 09/07-ongoing last given 09/18 Vancomycin 09/03- 09/11 Linezolid 09/11- ongoing - 09/17 last given Blood culture:co ag neg staph, i think its contaminated. Recent on 09/07 showed no growth Pulmonary on board for vent management full code prognosis guarded crit time 35 mins spent during the encounter. Thank you for consult and for giving an opportunity to take care of this patient. Dietary Evaluation Review Comments: 1. Consider EN/TPN if NPO >7days 2. Continue plan of care Expected Outcomes/Goals: 1. Pt will meet >75% of estimated needs within 2-3 days Plan discussed with: ANGELLA Peng MD Oct 04, 2024 16:31
[2024-10-04] MEDS: SOD CHL 0.45% 1,000 ML IV SCH (17:37)
--- NOTE | 2024-10-04 22:47 | DVHPN2 ---
Progress Note - Dictate Date Seen: Oct 04, 2024 Has the PT tested + for MRSA If YES, has PT been informed?: Yes Medical Necessity Reason Pt with a Central, PICC or Fol: Yes The following are medically ne: PICC Line, Betancourt Catheter Reason for betancourt catheter: Strict I&O Subjective Patient was seen and evaluated in follow up in the ICU. Patient is intubated and sedated on ventilator. 60% FiO2. Patient having low grade fevers overnight, T- max 100.1.A BG shows compensated metabolic alkalosis. Planning tracheostomy on 07 October per surgeon. WBC 14.2. NA 146, CA 13.3. vital signs Vital Sign Date Time Temp Pulse Resp B/P (MAP) Pulse Ox O2 Delivery O2 Flow Rate FiO2 10/04/24 22:16 74 22 107/70 (82) 96 65 10/04/24 22:00 Mechanical Ventilator+ 10/04/24 20:00 98.3 98.3 10/03/24 14:00 0 Total Intake and Output 10/03/24 10/03/24 10/04/24 15:00 23:00 07:00 Intake Total 35.5 ml 295 ml 117 ml Output Total 850 ml 350 ml Balance 35.5 ml -555 ml -233 ml medications Current Medications Medications Dose Ordered Sig/[place]acia Route Start Time Stop Time Status Last Admin Dose Admin Pantoprazole Sodium 40 mg DAILY IV 09/04/24 10:00 10/04/24 09:46 40 MG Sodium Chloride 10 ml QSHIFT@10,22 IV 09/13/24 22:00 10/04/24 21:56 10 ML Albuterol 2.5 mg Q6HPRN PRN NEB 09/21/24 19:00 10/03/24 12:33 2.5 MG Ipratropium [place] 0.5 mg Q6HPRN PRN NEB 09/21/24 19:00 10/03/24 12:33 0.5 MG Midazolam HCl 50 ml @ 1 mls/hr Q24H IV 09/22/24 19:45 10/04/24 22:00 13 MLS/HR Enteral Nutritional Formula 1,000 ml 30ML/HR GT 09/23/24 12:30 10/04/24 17:37 1,000 ML Potassium Chloride/Sodium Chloride 1,000 ml @ 50 mls/hr Q20H IV 09/25/24 12:00 Cancel Acetaminophen 650 mg Q6HP PRN GT 09/30/24 11:45 Norepinephrine Bitartrate 250 ml @ 3.75 mls/hr Q24H IV 09/30/24 15:15 10/02/24 06:15 3.75 MLS/HR Sennosides 8.6 mg HS PO 10/01/24 22:00 10/04/24 21:55 8.6 MG Metoclopramide HCl 10 mg TID IV 10/01/24 18:00 10/04/24 17:37 10 MG Lactulose 30 ml Q6HR PO 10/03/24 18:00 10/04/24 17:37 30 ML Lorazepam 0.5 mg Q4HP PRN IV 10/03/24 15:15 10/04/24 11:30 0.5 MG Labetalol HCl 10 mg Q6HPRN PRN IV 10/04/24 05:15 Fentanyl 25 mcg Q72H TD 10/04/24 09:15 Hold Enoxaparin Sodium 100 mg BID SC 10/04/24 12:30 10/04/24 21:52 100 MG Vancomycin HCl 0 ml @ 0 mls/hr UD IV 10/04/24 12:45 Fentanyl Citrate 250 ml @ 2.5 mls/hr Q24H IV 10/04/24 15:00 10/04/24 18:15 25 MLS/HR Ceftriaxone Sodium 50 ml @ 100 mls/hr DAILY@09 IV 10/05/24 09:00 Sodium Chloride 1,000 ml @ 75 mls/hr [id number] IV 10/04/24 17:00 10/04/24 17:37 75 MLS/HR Propofol 100 ml @ 2.979 mls/ hr Q24H IV 10/04/24 18:30 10/04/24 14:50 2.979 MLS/HR objective GENERAL: Intubated on ventilator. Morbidly obese. LUNGS: Decreased breath sounds. CARDIOVASCULAR: Heart sounds are good. ABDOMEN: Soft. Morbid pannus limited physical palpation. SKIN: Multiple scars to abdomen. laboratory and microbiology Laboratory Tests 10/04/24 10:45 10/04/24 03:09 Test 10/04/24 10:45 Range/Units Serum Glucose 96 74-106 mg/dL Problem List Septic shock. Acute on chronic respiratory failure. NSTEMI type II secondary to above. Rule out structural heart disease. Prolonged QT interval. Morbid obesity, Class 3. Assessment/Plan Continued all current supportive medical care. DVT and GI prophylactics. Diuretics with Lasix. Nebulized breathing treatments. Vasopressors for hemodynamic support. Additional plan as per the hospital course. Critical care time of 45 minutes provided to include time spent evaluation of patient at bedside, when appropriate patient/family education for diagnosis, treatment plan, review of pertinent medical information and discussion of care with specialty providers and PCP. Mechanical ventilator parameters, treatment and adjustments have personally been reviewed by me and treatment plan by tax technician has also been reviewed. Dietary Evaluation Review Comments: 1. Consider EN/TPN if NPO >7days 2. Continue plan of care Expected Outcomes/Goals: 1. Pt will meet >75% of estimated needs within 2-3 days Plan discussed with: Other RELL STEWART MD Oct 04, 2024 22:47
[2024-10-05] VITALS (107 sets, daily range): BP systolic 88–126; BP diastolic 51–84; PULSE 68–81; RESP 12–27; TEMP 97.9–98.8; O2SAT 92–98
[2024-10-05 03:49] LABS: Basophils # (auto) 0.1 10 ^3/uL (0-0.2); Basophils % (auto) 1.1 % (0.0-2.0); Eosinophils # (auto) 0.4 10 ^3/uL (0-0.8); Hematocrit 35.4 % (36.0-46.0); Hemoglobin 11.9 g/dL (12.2-16.2); Lymphocytes # (auto) 2.3 10 ^3/uL (0.4-5.4); Lymphocytes % (auto) 19.2 % (10.0-50.0); Mean Corpuscular Hemoglobin 29.8 pg (28.0-32.0); Mean Corpuscular Hgb Conc. 33.5 g/dL (32.0-36.0); Monocytes # (auto) 1.3 10 ^3/uL (0-1.3); Monocytes % (auto) 11.2 % (0.0-12.0); Neutrophils # (auto) 7.7 10 ^3/uL (1.6-8.6); Neutrophils % (auto) 65.5 % (37.0-80.0); Nucleated Red Blood Cells % 0.1 %; Platelet Count (auto) 416 10^3/uL (140-450); Red Blood Cells 3.98 10^6/uL (4.0-5.20); Red Cell Distribution Width 14.4 % (11.8-14.3); White Blood Cell 11.8 10^3/uL (4.4-10.8)
[2024-10-05 03:54] LABS: Alanine Aminotransferase 17 U/L (7-40); Albumin 3.5 g/dL (3.2-4.8); Anion Gap 8 (5-15); Aspartate Aminotransferase 22 U/L (13-40); BUN/Creatinine Ratio 15.8 (10.0-20.0); Bilirubin, Total 0.4 mg/dL (0.2-1.0); Blood Urea Nitrogen 16 mg/dL (9-23); Carbon Dioxide 28 mmol/L (20-31); Magnesium 2.2 mg/dL (1.6-2.6); Sodium 145 mmol/L (136-145); Total Protein 6.4 g/dL (5.7-8.2)
[2024-10-05 04:12] LABS: Alkaline Phosphatase 117 U/L (46-116); Chloride 109 mmol/L (98-107); Glucose 127 mg/dL (74-106); Potassium 3.4 mmol/L (3.5-5.1)
--- NOTE | 2024-10-05 04:53 | DVH ---
CHEST RADIOGRAPH Indication: f/u Technique: Single frontal view of the chest was obtained Comparison: XY CHEST PORTABLE on DOS: 10/04/24, XY CHEST PORTABLE on DOS: 10/04/24, XY CHEST PORTABLE on DOS: 10/03/24, XY CHEST PORTABLE on DOS: 10/02/24, XY CHEST XRAY 1 VIEW on DOS: 10/01/24, XY CHES T PORTABLE on DOS: 10/04/24 FINDINGS: Lines and Tubes: Unchanged endotracheal tube and nasogastric tube. Lungs: Bibasilar subsegmental atelectasis and/or pneumonia. Pleura: No effusion. No pneumothorax. Cardiomediastinal contours: Unremarkable Bones: Unremarkable IMPRESSION: 1. Bibasilar subsegmental atelectasis and/or pneumonia.
[2024-10-05 08:25] LABS: Base Excess 4.7 mmol/L (-2.0-3.0)
[2024-10-05] MEDS: POTASSIUM CHL 20MEQ/100ML 100 ML IV SCH (08:34)
[2024-10-05] MEDS: cefTRIAXone 1GM/50ML D5W 50 ML IV SCH (09:02)
[2024-10-05] MEDS ORDERED: ENOXAPARIN SOD 40 MG/0.4 ML SYRINGE SC SCH (10:00)
[2024-10-05] MEDS: ENOXAPARIN SOD 100 MG/1 ML SYRINGE SC ONE (10:22)
[2024-10-05] MEDS: VANCOMYCIN 500mg/100mL 100 ML IV ONE (11:35)
--- NOTE | 2024-10-05 13:00 | DVHNC2 ---
Intubation Indication: Respiratory Insufficiency Prep: Preoxygenation Pretreated with: Sedation Medicated with: Other (rocuronium) Intubation Approach: Orotracheal Intubation size: cm (8) Informed consent obtained: Yes Risks/benefits/alt described: Yes Date of Service: Oct 04, 2024 Billing Provider: DANE PINON MD Common Visit Codes: PROCEDURE ONLY Procedure Codes: [id number] DANE PINON MD Oct 05, 2024 13:00
[2024-10-05] MEDS: SOD CHL 0.45% IV ONE (13:20)
[2024-10-05] MEDS: LACTULOSE 20Gm/30ML SOLN PO SCH (14:39)
--- NOTE | 2024-10-05 14:52 | DVHPN2 ---
Progress Note Date Seen: Oct 05, 2024 Has the PT tested + for MRSA If YES, has PT been informed?: Yes Medical Necessity Reason Pt with a Central, PICC or Fol: Yes The following are medically ne: PICC Line, Betancourt Catheter Reason for betancourt catheter: Strict I&O Objective vital signs Vital Sign Date Time Temp Pulse Resp B/P (MAP) Pulse Ox O2 Delivery O2 Flow Rate FiO2 10/05/24 13:47 70 20 99/61 (74) 96 40 10/05/24 08:15 97.9 97.9 10/05/24 06:00 Mechanical Ventilator+ 10/03/24 14:00 0 Total Intake and Output 10/04/24 10/04/24 10/05/24 15:00 23:00 07:00 Intake Total 280.687 ml 1149.549 ml 861.559 ml Output Total 250 ml 425 ml Balance 280.687 ml 899.549 ml 436.559 ml medications Current Medications Medications Dose Ordered Sig/[place] Route Start Time Stop Time Status Last Admin Dose Admin Pantoprazole Sodium 40 mg DAILY IV 09/04/24 10:00 10/05/24 08:59 40 MG Sodium Chloride 10 ml QSHIFT@10,22 IV 09/13/24 22:00 10/05/24 09:00 10 ML Albuterol 2.5 mg Q6HPRN PRN NEB 09/21/24 19:00 10/03/24 12:33 2.5 MG Ipratropium [place] 0.5 mg Q6HPRN PRN NEB 09/21/24 19:00 10/03/24 12:33 0.5 MG Midazolam HCl 50 ml @ 1 mls/hr Q24H IV 09/22/24 19:45 10/05/24 11:33 12 MLS/HR Enteral Nutritional Formula 1,000 ml 30ML/HR GT 09/23/24 12:30 10/04/24 17:37 1,000 ML Potassium Chloride/Sodium Chloride 1,000 ml @ 50 mls/hr Q20H IV 09/25/24 12:00 Cancel Acetaminophen 650 mg Q6HP PRN GT 09/30/24 11:45 Norepinephrine Bitartrate 250 ml @ 3.75 mls/hr Q24H IV 09/30/24 15:15 10/05/24 02:05 7.5 MLS/HR Metoclopramide HCl 10 mg TID IV 10/01/24 18:00 10/05/24 14:39 10 MG Fentanyl 25 mcg Q72H TD 10/04/24 09:15 Hold Vancomycin HCl 0 ml @ 0 mls/hr UD IV 10/04/24 12:45 Fentanyl Citrate 250 ml @ 2.5 mls/hr Q24H IV 10/04/24 15:00 10/05/24 11:53 22.5 MLS/HR Ceftriaxone Sodium 50 ml @ 100 mls/hr DAILY@09 IV 10/05/24 09:00 10/05/24 09:02 100 MLS/HR Sodium Chloride 1,000 ml @ 75 mls/hr [id number] IV 10/04/24 17:00 10/05/24 06:38 75 MLS/HR Propofol 100 ml @ 2.979 mls/ hr Q24H IV 10/04/24 18:30 10/05/24 08:46 8.937 MLS/HR Enoxaparin Sodium 100 mg BID SC 10/05/24 22:00 Lactulose 30 ml Q4HR PO 10/05/24 14:00 10/05/24 14:39 30 ML Sennosides 15 mg HS PO 10/05/24 22:00 UNV laboratory and microbiology Laboratory Tests 10/05/24 03:17 Test 10/05/24 03:17 Range/Units Serum Glucose 127 H 74-106 mg/dL Microbiology Date/Time Source Procedure Growth Status 10/04/24 12:40 Sputum Gram Stain - Final Resulted 10/04/24 12:40 Sputum Respiratory Culture - Preliminary Resulted 09/26/24 13:00 Abdomen Gram Stain - Final Complete 09/26/24 13:00 Wound Culture - Final Methicillin Resistant S.aureus Complete 09/24/24 10:59 Blood Blood Culture - Final NO GROWTH AFTER 5 DAYS OF INCUBATION. Complete 09/11/24 00:00 Voided Urine Urine Culture - Final Complete 09/06/24 13:00 Vaginal Vaginal Culture - Final Enterococcus faecalis Methicillin Resistant S.aureus Complete Problem List/Assessment/Plan Problem List/Assessment/Plan REMAINS INTUBATED VSS RESP FAILURE PENDING TRACHEOSTOMY AWAIT CARD EVAL Plan discussed with: Other Dietary Evaluation Review Comments: 1. Consider EN/TPN if NPO >7days 2. Continue plan of care Expected Outcomes/Goals: 1. Pt will meet >75% of estimated needs within 2-3 days MAZIN RUIZ MD Oct 05, 2024 14:52
--- NOTE | 2024-10-05 16:23 | DVHPN2 ---
Progress Note - Dictate Date Seen: Oct 05, 2024 Has the PT tested + for MRSA If YES, has PT been informed?: Yes Medical Necessity Reason Pt with a Central, PICC or Fol: Yes The following are medically ne: PICC Line, Betancourt Catheter Reason for betancourt catheter: Strict I&O Subjective Patient intubated successfully yesterday. No new acute complaints noted at this time. 10/05, Chest x-ray showed - Bibasilar subsegmental atelectasis and/or pneumonia. vital signs Vital Sign Date Time Temp Pulse Resp B/P (MAP) Pulse Ox O2 Delivery O2 Flow Rate FiO2 10/05/24 15:35 78 20 93/57 (69) 95 40 10/05/24 08:15 97.9 97.9 10/05/24 06:00 Mechanical Ventilator+ 10/03/24 14:00 0 Total Intake and Output 10/04/24 10/04/24 10/05/24 15:00 23:00 07:00 Intake Total 280.687 ml 1149.549 ml 861.559 ml Output Total 250 ml 425 ml Balance 280.687 ml 899.549 ml 436.559 ml medications Current Medications Medications Dose Ordered Sig/Acacia Route Start Time Stop Time Status Last Admin Dose Admin Pantoprazole Sodium 40 mg DAILY IV 09/04/24 10:00 10/05/24 08:59 40 MG Sodium Chloride 10 ml QSHIFT@ IV 09/13/24 22:00 10/05/24 09:00 10 ML Albuterol 2.5 mg Q6HPRN PRN NEB 09/21/24 19:00 10/03/24 12:33 2.5 MG Ipratropium [place] 0.5 mg Q6HPRN PRN NEB 09/21/24 19:00 10/03/24 12:33 0.5 MG Midazolam HCl 50 ml @ 1 mls/hr Q24H IV 09/22/24 19:45 10/05/24 11:33 12 MLS/HR Enteral Nutritional Formula 1,000 ml 30ML/HR GT 09/23/24 12:30 10/04/24 17:37 1,000 ML Potassium Chloride/Sodium Chloride 1,000 ml @ 50 mls/hr Q20H IV 09/25/24 12:00 Cancel Acetaminophen 650 mg Q6HP PRN GT 09/30/24 11:45 Norepinephrine Bitartrate 250 ml @ 3.75 mls/hr Q24H IV 09/30/24 15:15 10/05/24 02:05 7.5 MLS/HR Metoclopramide HCl 10 mg TID IV 10/01/24 18:00 10/05/24 14:39 10 MG Fentanyl 25 mcg Q72H TD 10/04/24 09:15 Hold Vancomycin HCl 0 ml @ 0 mls/hr UD IV 10/04/24 12:45 Fentanyl Citrate 250 ml @ 2.5 mls/hr Q24H IV 10/04/24 15:00 10/05/24 11:53 22.5 MLS/HR Ceftriaxone Sodium 50 ml @ 100 mls/hr DAILY@09 IV 10/05/24 09:00 10/05/24 09:02 100 MLS/HR Sodium Chloride 1,000 ml @ 75 mls/hr [id number] IV 10/04/24 17:00 10/05/24 06:38 75 MLS/HR Propofol 100 ml @ 2.979 mls/ hr Q24H IV 10/04/24 18:30 10/05/24 08:46 8.937 MLS/HR Enoxaparin Sodium 100 mg BID SC 10/05/24 22:00 Lactulose 30 ml Q4HR PO 10/05/24 14:00 10/05/24 14:39 30 ML Sennosides 15 mg HS PO 10/05/24 22:00 objective General: Intubated and sedated HEENT: Atraumatic,intubated Neck: No swelling Lungs: Equal air entry and clear to auscultation Cardiovascular: S1 S2 heard no murmur Abdomen: Soft nontender, no organomegaly, nondistended Neuro: sedated, unable to assess Psych: unable to assess laboratory and microbiology Laboratory Tests 10/05/24 03:17 Test 10/05/24 03:17 Range/Units Serum Glucose 127 H 74-106 mg/dL Assessment/Plan Patient is a 63-year-old female presented to the hospital with: failed extubation, reintubated Staphylococcus aureus pneumonia ( MRSA) Streptococcus Pneumoniae pneumonia Septic shock resolving bacteremia : coag neg staphylococccus, possible contamination Acute Respiratory Failure [requiring mechanical ventilation] severe hypoxia Metabolic acidosis FEDE Morbidly obese BMI = 40 PE history Recommendations: Reintubation again on 10/04 and before on 09/22. possible plan for trach dcd meropenem however she is started on ceftriaxone Continue IV vancomycin [Restarted on 09/27 ] and now on meropenem ( since 09/30- : no clear indication for MEroepenm. Discontinued Levaquin 09/30 I feel she is already received prolonged course of antibiotics for MRSA pneumonia. 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 Patient had difficult extubation in the past, 4 years ago when she was intubated for surgery as per records. 09/26, Wound culture preliminary: Coagulase Negative Staphylococcus Antibiotics review Cefepime 09/02- 09/06 Meropenem 09/03-09/05 Ceftriaxone 09/07-ongoing last given 09/18 Vancomycin 09/03- 09/11 Linezolid 09/11- ongoing - 09/17 last given Blood culture:co ag neg staph, i think its contaminated. Recent on 09/07 showed no growth Pulmonary on board for vent management full code prognosis guarded crit time 35 mins spent during the encounter. Thank you for consult and for giving an opportunity to take care of this patient. Dietary Evaluation Review Comments: 1. Consider EN/TPN if NPO >7days 2. Continue plan of care Expected Outcomes/Goals: 1. Pt will meet >75% of estimated needs within 2-3 days Plan discussed with: ANGELLA Peng MD Oct 05, 2024 16:23
--- NOTE | 2024-10-05 18:57 | DVHPNRES ---
Progress Note Date Seen: Oct 05, 2024 Resident Creating Document: NAN AMAYA RESIDENT Has the PT tested + for MRSA If YES, has PT been informed?: Yes Medical Necessity Reason Pt with a Central, PICC or Fol: Yes The following are medically ne: PICC Line, Betancourt Catheter Reason for betancourt catheter: Strict I&O Subjective Review of Systems This is a 63-year-old female patient with PMHx of PE in 2015, multiple abdominal surgeries including hernia and bowel obstruction, lasts hernia surgery [place] [address] Anaya, right distal ureteral calculus in February 2024, AKA, rib fractures, chronic nicotine dependence in polysubstance use including methamphetamine and cannabis presented to the ER with a chief complaint of shortness of breaths. She was successfully intubated on 09/02. Per patient's daughter, patient became short of breath and febrile at 102.7 F, and therefore they had to call [facility]. Patient was saturating at 70% and therefore the patient was brought to the ER. She was intubated once before 4 years back after abdominal surgery at [facility] where she experienced difficult extubation. Patient is a nonsmoker for more than 50 years, currently smokes more than 1 pack a day. 09/05 - 2 small granulating wounds on abdomen are suture granulomas, sutures removed by surgeon 09/28 - Patient seen and examined at the bedside. Overnight patient became bradycardic, pulse was 30s, telemetry reviewed rhythm was regular, likely sinus bradycardia, sedation was turned off and the patient's pulse went up to 58 beats per minute which is her baseline. No bowel movements overnight. Patient made around 950 cc of urine. 40 mEq of potassium supplement and 2 g magnesium supplemented. Continue IV vancomycin and levofloxacin. Id on board. CPAP trial ended early as the patient became tachypneic with RR of 46/min. Raised Jevity 1.2 to 40 mL/hour. 09/29 - patient is sedated and mechanically intubated. Overnight patient made 450 mL of urine. ABG in the a.m. shows respiratory alkalosis, CO2 decreased from 38-32 and bicarb decreased from 25-22. Corrected calcium 12.3. PTH level 19. Chest x-ray shows left-sided aeration is better than as compared to when on admission. Patient underwent CPAP trial which and that as the patient became tachypneic. Discussed the option of tracheostomy with patient's daughter Toshia, she said that the family and herself does not want tracheostomy and did not think that patient would want tracheostomy. Patient's family requesting for bronchoscopy. Dr. Luis consulted for bronchoscopy per patient's family request. Bronchoscopy performed 09/29 shows Right lower lobe atelectasis due to mucous plugging. Mucous plugging from R6-R10 K 2.9, 80 mEq replenished. Mag 1.7, 2 g replenished. 09/30-patient seen and examined at bedside. 625 mL of urine overnight. 2 L of urine during the day of 09/29. No bowel movement. Lactulose started. T-max of 99.6 overnight. DC Levaquin today started meropenem. Family meeting for over 50 minutes today. Family declined tracheostomy, per daughter the patient would be very upset on tracheostomy and it would be a burden on her. CPAP trial earlier next week. 10/01 - patient seen and examined at bedside. DC Diflucan. Started Reglan IV 10 mg TID, started Colace and senna, lactulose increased to b.i.d.. Chest x-ray shows worsening pulmonary vascular congestion and bilateral effusion. Last bowel movement was on 23 September. Cumulative intake output less 4 L. ABG shows metabolic alkalosis with respiratory acidosis. Consider Diamox if patient becomes more alkalotic. 10/04 - over night T-max 99.7, pulse 110, blood pressure elevated to 181/103. Corrected calcium 13.2. Patient received 1 dose of calcitonin SC. Patient was tachypneic on BiPAP, rate in the range of 47-51. Patient was altered. Called family, per Toshia - family decided to go for tracheostomy, consult received for re-intubation. Patient reintubated at 12:10 p.m. ETT retracted 2 cm. Chest x- ray in a.m.. Surgeon consulted for tracheostomy. Planning tracheostomy on 07 October. Initiated half NS at 75 cc/hour. DC meropenem, switched to ceftriaxone and continue vancomycin. ABG showed compensated metabolic alkalosis. Last BM on . 10/05 - overnight low-grade fever 100.1 at the time of intubation, urine output 675 mL. No bowel movement. Increase lactulose to q.4. Increased dose of senna. On propofol 5, fentanyl 250, Versed 12 and Levophed4. 250 bolus of NS administered. ABG shows metabolic alkalosis with respiratory alkalosis. Respiratory rate decreased from 22-20. Corrected calcium 12.4 downtrending. Objective vital signs Vital Sign Date Time Temp Pulse Resp B/P (MAP) Pulse Ox O2 Delivery O2 Flow Rate FiO2 10/05/24 18:16 73 20 99/58 (72) 94 40 10/05/24 18:15 Mechanical Ventilator 10/05/24 08:15 97.9 97.9 10/03/24 14:00 0 Total Intake and Output 10/04/24 10/04/24 10/05/24 15:00 23:00 07:00 Intake Total 280.687 ml 1149.549 ml 861.559 ml Output Total 250 ml 425 ml Balance 280.687 ml 899.549 ml 436.559 ml medications Current Medications Medications Dose Ordered Sig/Acacia Route Start Time Stop Time Status Last Admin Dose Admin Pantoprazole Sodium 40 mg DAILY IV 09/04/24 10:00 10/05/24 08:59 40 MG Sodium Chloride 10 ml QSHIFT@ IV 09/13/24 22:00 10/05/24 09:00 10 ML Albuterol 2.5 mg Q6HPRN PRN NEB 09/21/24 19:00 10/03/24 12:33 2.5 MG Ipratropium [place] 0.5 mg Q6HPRN PRN NEB 09/21/24 19:00 10/03/24 12:33 0.5 MG Midazolam HCl 50 ml @ 1 mls/hr Q24H IV 09/22/24 19:45 10/05/24 17:13 12 MLS/HR Enteral Nutritional Formula 1,000 ml 30ML/HR GT 09/23/24 12:30 10/04/24 17:37 1,000 ML Potassium Chloride/Sodium Chloride 1,000 ml @ 50 mls/hr Q20H IV 09/25/24 12:00 Cancel Acetaminophen 650 mg Q6HP PRN GT 09/30/24 11:45 Norepinephrine Bitartrate 250 ml @ 3.75 mls/hr Q24H IV 09/30/24 15:15 10/05/24 02:05 7.5 MLS/HR Metoclopramide HCl 10 mg TID IV 10/01/24 18:00 10/05/24 14:39 10 MG Fentanyl 25 mcg Q72H TD 10/04/24 09:15 Hold Vancomycin HCl 0 ml @ 0 mls/hr UD IV 10/04/24 12:45 Fentanyl Citrate 250 ml @ 2.5 mls/hr Q24H IV 10/04/24 15:00 10/05/24 11:53 22.5 MLS/HR Ceftriaxone Sodium 50 ml @ 100 mls/hr DAILY@09 IV 10/05/24 09:00 10/05/24 09:02 100 MLS/HR Sodium Chloride 1,000 ml @ 75 mls/hr [id number] IV 10/04/24 17:00 10/05/24 17:51 75 MLS/HR Propofol 100 ml @ 2.979 mls/ hr Q24H IV 10/04/24 18:30 10/05/24 17:14 8.937 MLS/HR Enoxaparin Sodium 100 mg BID SC 10/05/24 22:00 Lactulose 30 ml Q4HR PO 10/05/24 14:00 10/05/24 14:39 30 ML Sennosides 15 mg HS PO 10/05/24 22:00 Examination Obese female patient lying in bed, in no acute distress RASS -5 General: Morbidly obese, afebrile, palor, mucosae are moist, dilated and sluggish light reflex Cardiovascular: Tachycardic but Regular S1 and S2. No murmurs, gallops or rubs. No JVD elevation. Lower and upper extremity resolving edema noticed. Respiratory: Equal bilateral air entry, saturating 92% on FiO2 of 35%. Abdomen: Abdomen is soft, hypoactive bowel sounds, multiple ventral hernia seen, right-sided dressing removed, no drainage noticed. Stage II decubitus ulcer seen with overlying erythema but no drainage noticed. Midline scar seen. Genitourinary: Betancourt catheter seen MSK/skin: Skin is dry and warm Neurological: Pupils are isocoric and reactive. laboratory and microbiology Laboratory Tests 10/05/24 03:17 Test 10/05/24 03:17 Range/Units Serum Glucose 127 H 74-106 mg/dL Microbiology Date/Time Source Procedure Growth Status 10/04/24 12:40 Sputum Gram Stain - Final Resulted 10/04/24 12:40 Sputum Respiratory Culture - Preliminary Resulted 09/26/24 13:00 Abdomen Gram Stain - Final Complete 09/26/24 13:00 Wound Culture - Final Methicillin Resistant S.aureus Complete 09/24/24 10:59 Blood Blood Culture - Final NO GROWTH AFTER 5 DAYS OF INCUBATION. Complete 09/11/24 00:00 Voided Urine Urine Culture - Final Complete 09/06/24 13:00 Vaginal Vaginal Culture - Final Enterococcus faecalis Methicillin Resistant S.aureus Complete Labs and/or images reviewed: Labs reviewed by me, Image(s) reviewed by me Problem List/Assessment/Plan Problem List/Assessment/Plan NEUROLOGY Acute metabolic encephalopathy likely due to septic shock - patient is sedated and mechanically ventilated, RASS -2 CARDIOVASCULAR Septic shock NSTEMI likely type 2 secondary to septic shock Probable right ventricular failure Prolonged QTC-resolved - cardiology recommended conservative management - echocardiogram shows dyskinesis of IVC, dilated RV and dilated RA. RV failure. Mild LVH and mild LV diastolic dysfunction with EF 65 % - blood culture 09/02 showed Staph hominis sensitive to vancomycin - repeat blood culture 09/11 showed Staphylococcus epidermidis sensitive to Cipro, clinda, linezolid, vancomycin - repeat blood culture 09/24 shows no growth - discontinued furosemide 40 mg IV daily starting 09/27 till 10/04 RESPIRATORY Acute hypoxic respiratory failure secondary to probable community-acquired pneumonia due to MRSA and S pneumo Advanced COPD Chronic nicotine dependence - patient was intubated and mechanically ventilated starting 09/02 - bronchoscopy completed 09/07, results showed MRSA positive - repeat bronchoscopy 09/08, showed comparatively lesser secretions - sputum culture 09/02 showed MRSA, strep pneumo - bronchial wash specimen collected 09/07 showed MRSA - repeat respiratory culture 09/22 showed MRSA and presumtive Juju albicans - received cefepime from 09/02 to 09/06 - received meropenem 11/03 to 09/05, - received vancomycin from 09/03 to 09/11 - received ceftriaxone 2 g daily from 09/13 to 09/19 - received linezolid from 09/11 to 09/17 - continue albuterol and ipratropium q.6 hour p.r.n. - restarted vancomycin 09/27 and ceftriaxone starting 10/04 - discontinued IV meropenem started from 09/30 till 10/04 - discontinued Diflucan-patient received from 09/27 till 10/01 - discontinued Levaquin 09/30 - 09/28 and 09/29 CPAP trial ended early as the patient became tachypneic with RR of 46/min. - 10/04- patient tachypneic on BiPAP, reintubated per family's request. Family considering tracheostomy. Consent signed. Surgeon consulted for tracheostomy - Dr. Luis consulted for bronchoscopy. Bronchoscopy performed 09/29 shows mucus plugs in the left upper lobe. - respiratory culture pending from 10/04 GI History of multiple surgeries secondary to hernia and bowel obstruction Multiple ventral wall hernias Possible bowel obstruction Transaminitis secondary to septic shock Rhabdomyolysis likely secondary to immobilization Surgeon consulted-recommended conservative management, small varices could not be performed at this moment due to respiratory status of the patient Continue IV pantoprazole 40 mg daily Increased dose of senna Lactulose increased to q.4 10/05 /KIDNEY FEDE, likely secondary to VMN - resolved Probable pelvic inflammatory disease Hyponatremia-resolved Hypomagnesemia Hypercalcemia -corrected calcium 13.2, PTH 19 - creatinine downtrending - creatinine kinase downtrended from 8215 to 77 - nephrology consulted, last hemodialysis session was performed on 09/10 - urine bacterial culture 09/02 showed less than 61990 CFU of coagulase-negative Staphylococcus - vaginal culture 09/06 showed coagulase-negative Staphylococcus, Enterococcus faecalis, MRSA sensitive to daptomycin, linezolid, vancomycin, TMP SMX - patient had purulent vaginal discharge - 40 mEq potassium and 2 g of magnesium administered 09/28 - monitor calcium, received 1 dose of calcitonin on 10/04. Continue half NS ENDO Hypertriglyceridemia, TG 623 09/04, 320 at 09/15 Likely due to propofol, discontinued propofol Obesity - Continue Atorvastatin 40 mg ID Polysubstance use - Infectious disease consulted, continue management as above - Per patient's daughter, patient uses amphetamine, marijuana, smokes cigarettes - HIV testing negative - Hepatitis panel negative Hematology Lower extremity DVT - Ultrasound Doppler of lower extremities 08/15 shows nonocclusive DVT of the left popliteal vein - Continue Lovenox 100 mg b.i.d. - discontinue Lovenox prior to tracheostomy LINES ETT, intubated on 09/02/2024, reintubated 10/04 IV access Left upper arm PICC line, placed on 09/13 Drips: Versed 12 Propofol 15 Levophed 4 Fentanyl 250 Nutrition Jevity 40 mL/hour Goals of care/advance care planning; FULL CODE; discussed on for 24 minutes. PUD prophylaxis; therapeutic Lovenox DVT prophylaxis; pantoprazole 40 mg IV daily Case discussed with Dr. Pinon. Tracheostomy planned for 10/07. Hold Lovenox starting 10/01 5:00 p.m. Plan discussed with the patient's daughter over the bedside for more than 50 minutes, code status full code Critical care time including review of chart, discussion with the family, excluding procedures: 57 minutes Plan discussed with: Patient My Orders My Orders Orders - NAN AMAYA Procedure Category Date Status Time Communication Order ORDERS 10/04/24 Transmitted 12:30 Communication Order ORDERS 10/04/24 Transmitted 13:00 Basic Metabolic Panel LAB 10/06/24 Verified 04:00 Vancomycin,Random LAB 10/06/24 Verified 04:00 Enoxaparin Sodium PHA 10/05/24 In Process (Lovenox) 22:00 Senna Pod Tablet PHA 10/05/24 In Process (Senokot Tablet) 22:00 Dietary Evaluation Review Comments: 1. Consider EN/TPN if NPO >7days 2. Continue plan of care Expected Outcomes/Goals: 1. Pt will meet >75% of estimated needs within 2-3 days Date of Service: Oct 05, 2024 Billing Provider: DANE PINON MD Common Visit Codes: 65112-METEDUJT CARE 30-74 MIN NAN AMAYA Oct 05, 2024 18:57 DANE PINON MD Oct 06, 2024 15:14
[2024-10-05] MEDS: ENOXAPARIN SOD 100 MG/1 ML SYRINGE SC SCH (21:43)
[2024-10-05] MEDS: SENNA 8.6 MG TAB PO SCH (21:49)
--- NOTE | 2024-10-05 23:44 | DVHPN2 ---
Progress Note - Dictate Date Seen: Oct 05, 2024 Has the PT tested + for MRSA If YES, has PT been informed?: Yes Medical Necessity Reason Pt with a Central, PICC or Fol: Yes The following are medically ne: PICC Line, Betancourt Catheter Reason for betancourt catheter: Strict I&O Subjective Patient was seen and evaluated in follow up in the ICU. Patient is intubated and sedated on ventilator. 40% FiO2. Patient is afebrile. WBC 11.8, K 3.4, CA 12. Patients potassium was replaced. Chest x-ray shows bibasilar subsegmental atelectasis and/or pneumonia. vital signs Vital Sign Date Time Temp Pulse Resp B/P (MAP) Pulse Ox O2 Delivery O2 Flow Rate FiO2 10/05/24 22:07 76 20 103/60 (74) 95 40 10/05/24 18:15 Mechanical Ventilator 10/05/24 16:30 98.4 98.4 10/03/24 14:00 0 Total Intake and Output 10/04/24 10/04/24 10/05/24 15:00 23:00 07:00 Intake Total 280.687 ml 1149.549 ml 861.559 ml Output Total 250 ml 425 ml Balance 280.687 ml 899.549 ml 436.559 ml medications Current Medications Medications Dose Ordered Sig/Acacia Route Start Time Stop Time Status Last Admin Dose Admin Pantoprazole Sodium 40 mg DAILY IV 09/04/24 10:00 10/05/24 08:59 40 MG Sodium Chloride 10 ml QSHIFT@ IV 09/13/24 22:00 10/05/24 21:48 10 ML Albuterol 2.5 mg Q6HPRN PRN NEB 09/21/24 19:00 10/03/24 12:33 2.5 MG Ipratropium [place] 0.5 mg Q6HPRN PRN NEB 09/21/24 19:00 10/03/24 12:33 0.5 MG Midazolam HCl 50 ml @ 1 mls/hr Q24H IV 09/22/24 19:45 10/05/24 21:38 12 MLS/HR Enteral Nutritional Formula 1,000 ml 30ML/HR GT 09/23/24 12:30 10/04/24 17:37 1,000 ML Potassium Chloride/Sodium Chloride 1,000 ml @ 50 mls/hr Q20H IV 09/25/24 12:00 Cancel Acetaminophen 650 mg Q6HP PRN GT 09/30/24 11:45 Norepinephrine Bitartrate 250 ml @ 3.75 mls/hr Q24H IV 09/30/24 15:15 10/05/24 02:05 7.5 MLS/HR Metoclopramide HCl 10 mg TID IV 10/01/24 18:00 10/05/24 21:41 10 MG Fentanyl 25 mcg Q72H TD 10/04/24 09:15 Hold Vancomycin HCl 0 ml @ 0 mls/hr UD IV 10/04/24 12:45 Fentanyl Citrate 250 ml @ 2.5 mls/hr Q24H IV 10/04/24 15:00 10/05/24 21:41 25 MLS/HR Ceftriaxone Sodium 50 ml @ 100 mls/hr DAILY@09 IV 10/05/24 09:00 10/05/24 09:02 100 MLS/HR Sodium Chloride 1,000 ml @ 75 mls/hr [id number] IV 10/04/24 17:00 10/05/24 17:51 75 MLS/HR Propofol 100 ml @ 2.979 mls/ hr Q24H IV 10/04/24 18:30 10/05/24 17:14 8.937 MLS/HR Enoxaparin Sodium 100 mg BID SC 10/05/24 22:00 10/05/24 21:43 100 MG Lactulose 30 ml Q4HR PO 10/05/24 14:00 10/05/24 14:39 30 ML Sennosides 15 mg HS PO 10/05/24 22:00 objective GENERAL: Intubated on ventilator. Morbidly obese. LUNGS: Decreased breath sounds. CARDIOVASCULAR: Heart sounds are good. ABDOMEN: Soft. Morbid pannus limited physical palpation. SKIN: Multiple scars to abdomen. laboratory and microbiology Laboratory Tests 10/05/24 03:17 Test 10/05/24 03:17 Range/Units Serum Glucose 127 H 74-106 mg/dL Problem List Septic shock. Acute on chronic respiratory failure. NSTEMI type II secondary to above. Rule out structural heart disease. Prolonged QT interval. Morbid obesity, Class 3. Assessment/Plan Continued all current supportive medical care. DVT and GI prophylactics. Diuretics with Lasix. Nebulized breathing treatments. Vasopressors for hemodynamic support. Additional plan as per the hospital course. Critical care time of 45 minutes provided to include time spent evaluation of patient at bedside, when appropriate patient/family education for diagnosis, treatment plan, review of pertinent medical information and discussion of care with specialty providers and PCP. Mechanical ventilator parameters, treatment and adjustments have personally been reviewed by me and treatment plan by mortgage loan originator has also been reviewed. Dietary Evaluation Review Comments: 1. Consider EN/TPN if NPO >7days 2. Continue plan of care Expected Outcomes/Goals: 1. Pt will meet >75% of estimated needs within 2-3 days Plan discussed with: Other RELL STEWART MD Oct 05, 2024 23:44
[2024-10-06] VITALS (106 sets, daily range): BP systolic 90–130; BP diastolic 50–80; PULSE 70–93; RESP 13–24; TEMP 97.5–101.1; O2SAT 92–100
[2024-10-06 04:06] LABS: Basophils # (auto) 0.1 10 ^3/uL (0-0.2); Basophils % (auto) 0.5 % (0.0-2.0); Eosinophils # (auto) 0.4 10 ^3/uL (0-0.8); Eosinophils % (auto) 3.9 % (0.0-7.0); Hematocrit 34.1 % (36.0-46.0); Hemoglobin 10.8 g/dL (12.2-16.2); Lymphocytes # (auto) 1.7 10 ^3/uL (0.4-5.4); Lymphocytes % (auto) 15.1 % (10.0-50.0); Mean Corpuscular Hemoglobin 28.1 pg (28.0-32.0); Mean Corpuscular Hgb Conc. 31.6 g/dL (32.0-36.0); Monocytes # (auto) 0.7 10 ^3/uL (0-1.3); Monocytes % (auto) 6.5 % (0.0-12.0); Neutrophils # (auto) 8.3 10 ^3/uL (1.6-8.6); Platelet Count (auto) 382 10^3/uL (140-450); Red Blood Cells 3.83 10^6/uL (4.0-5.20); Red Cell Distribution Width 14.6 % (11.8-14.3); White Blood Cell 11.3 10^3/uL (4.4-10.8)
[2024-10-06 04:24] LABS: Alanine Aminotransferase 16 U/L (7-40); Alkaline Phosphatase 108 U/L (46-116); Anion Gap 8 (5-15); Aspartate Aminotransferase 24 U/L (13-40); BUN/Creatinine Ratio 16.7 (10.0-20.0); Blood Urea Nitrogen 14 mg/dL (9-23); Calcium 9.5 mg/dL (8.7-10.4); Carbon Dioxide 25 mmol/L (20-31); Glucose 94 mg/dL (74-106); Sodium 144 mmol/L (136-145)
[2024-10-06 04:25] LABS: Bilirubin, Total 0.4 mg/dL (0.2-1.0); Total Protein 5.7 g/dL (5.7-8.2)
[2024-10-06 04:28] LABS: Albumin 3.2 g/dL (3.2-4.8); Chloride 111 mmol/L (98-107); Potassium 3.2 mmol/L (3.5-5.1)
--- NOTE | 2024-10-06 05:31 | DVH ---
CHEST RADIOGRAPH Indication: Follow up Technique: Single frontal view of the chest was obtained Comparison: XY CHEST PORTABLE on DOS: 10/05/24, XY CHEST PORTABLE on DOS: 10/04/24, XY CHEST PORTABLE on DOS: 10/04/24, XY CHEST PORTABLE on DOS: 10/03/24, XY CHEST PORTABLE on DOS: 10/02/24, XY CHEST P ORTABLE on DOS: 10/05/24 FINDINGS: Lines and Tubes: Unchanged endotracheal tube and nasogastric tube. Lungs: Bibasilar subsegmental atelectasis and/or pneumonia. Pleura: No effusion. No pneumothorax. Cardiomediastinal contours: Unremarkable Bones: Unremarkable IMPRESSION: 1. Bibasilar subsegmental atelectasis and/or pneumonia.
[2024-10-06 06:57] LABS: Base Excess -1.6 mmol/L (-2.0-3.0)
[2024-10-06] MEDS: POTASSIUM CHL 20MEQ/100ML 100 ML IV SCH (07:02)
[2024-10-06] MEDS: FUROSEMIDE 20 MG/2 ML VIAL IV ONE ×2 (09:04→13:12)
[2024-10-06] MEDS: ACETAMINOPHEN 650 mg PER 20.3 mL UD GT ONE (12:15)
[2024-10-06] MEDS: ACETAMINOPHEN 650 mg PER 20.3 mL UD GT PRN (12:25)
[2024-10-06] MEDS: VANCOMYCIN 1GM/250ML KIT 250 ML IV SCH (13:06)
--- NOTE | 2024-10-06 13:45 | DVHPN2 ---
Progress Note - Dictate Date Seen: Oct 06, 2024 Has the PT tested + for MRSA If YES, has PT been informed?: Yes Medical Necessity Reason Pt with a Central, PICC or Fol: Yes The following are medically ne: PICC Line, Betancourt Catheter Reason for betancourt catheter: Strict I&O Subjective Patient was seen and evaluated in follow up in the ICU. Patient is intubated and sedated on ventilator. FiO2 is unchanged, remains at 40%. Patient is on pressors. Patient received wound care this afternoon. WBC 11.3, HCT 34.1, K 3.2, CL 111. vital signs Vital Sign Date Time Temp Pulse Resp B/P (MAP) Pulse Ox O2 Delivery O2 Flow Rate FiO2 10/06/24 12: 103/69 10/06/24: 101.1 10/06/24 11:20 84 20 99 40 10/06/24 10:00 Mechanical Ventilator+ Total Intake and Output 10/05/24 10/05/24 10/06/24 15:00 23:00 07:00 Intake Total 1539.7 ml 485.2 ml 266.874 ml Output Total 600 ml Balance 1539.7 ml 485.2 ml -333.126 ml medications Current Medications Medications Dose Ordered Sig/Acacia Route Start Time Stop Time Status Last Admin Dose Admin Pantoprazole Sodium 40 mg DAILY IV 09/04/24 10:00 10/06/24 09:03 40 MG Sodium Chloride 10 ml QSHIFT@ IV 09/13/24 22:00 10/06/24 09:17 10 ML Albuterol 2.5 mg Q6HPRN PRN NEB 09/21/24 19:00 10/03/24 12:33 2.5 MG Ipratropium [place] 0.5 mg Q6HPRN PRN NEB 09/21/24 19:00 10/03/24 12:33 0.5 MG Midazolam HCl 50 ml @ 1 mls/hr Q24H IV 09/22/24 19:45 10/06/24 09:14 12 MLS/HR Enteral Nutritional Formula 1,000 ml 30ML/HR GT 09/23/24 12:30 10/04/24 17:37 1,000 ML Potassium Chloride/Sodium Chloride 1,000 ml @ 50 mls/hr Q20H IV 09/25/24 12:00 Cancel Acetaminophen 650 mg Q6HP PRN GT 09/30/24 11:45 10/06/24 12:25 650 MG Norepinephrine Bitartrate 250 ml @ 3.75 mls/hr Q24H IV 09/30/24 15:15 10/06/24 05:54 7.5 MLS/HR Metoclopramide HCl 10 mg TID IV 10/01/24 18:00 10/06/24 05:48 10 MG Fentanyl 25 mcg Q72H TD 10/04/24 09:15 Hold Vancomycin HCl 0 ml @ 0 mls/hr UD IV 10/04/24 12:45 Fentanyl Citrate 250 ml @ 2.5 mls/hr Q24H IV 10/04/24 15:00 10/06/24 06:44 25 MLS/HR Ceftriaxone Sodium 50 ml @ 100 mls/hr DAILY@09 IV 10/05/24 09:00 10/06/24 09:06 100 MLS/HR Propofol 100 ml @ 2.979 mls/ hr Q24H IV 10/04/24 18:30 10/06/24 12:25 8.937 MLS/HR Enoxaparin Sodium 100 mg BID SC 10/05/24 22:00 Hold 10/05/24 21:43 100 MG Lactulose 30 ml Q4HR PO 10/05/24 14:00 10/06/24 09:08 30 ML Sennosides 15 mg HS PO 10/05/24 22:00 Vancomycin HCl 250 ml @ 250 mls/hr Q12H IV 10/06/24 13:00 objective GENERAL: Intubated on ventilator. Morbidly obese. LUNGS: Decreased breath sounds. CARDIOVASCULAR: Heart sounds are good. ABDOMEN: Soft. Morbid pannus limited physical palpation. SKIN: Multiple scars to abdomen. laboratory and microbiology Laboratory Tests 10/06/24 03:30 Test 10/06/24 03:30 Range/Units Serum Glucose 94 74-106 mg/dL Problem List Septic shock. Acute on chronic respiratory failure. NSTEMI type II secondary to above. Rule out structural heart disease. Prolonged QT interval. Morbid obesity, Class 3. Assessment/Plan Continued all current supportive medical care. DVT and GI prophylactics. Diuretics with Lasix. Nebulized breathing treatments. Vasopressors for hemodynamic support. Additional plan as per the hospital course. Critical care time of 45 minutes provided to include time spent evaluation of patient at bedside, when appropriate patient/family education for diagnosis, treatment plan, review of pertinent medical information and discussion of care with specialty providers and PCP. Mechanical ventilator parameters, treatment and adjustments have personally been reviewed by me and treatment plan by duster tender has also been reviewed. Dietary Evaluation Review Comments: 1. Consider EN/TPN if NPO >7days 2. Continue plan of care Expected Outcomes/Goals: 1. Pt will meet >75% of estimated needs within 2-3 days Plan discussed with: Other RELL STEWART MD Oct 06, 2024 12:56
--- NOTE | 2024-10-06 14:21 | DVHPN2 ---
Progress Note Date Seen: Oct 06, 2024 Has the PT tested + for MRSA If YES, has PT been informed?: Yes Medical Necessity Reason Pt with a Central, PICC or Fol: Yes The following are medically ne: PICC Line, Betancourt Catheter Reason for betancourt catheter: Strict I&O Objective vital signs Vital Sign Date Time Temp Pulse Resp B/P (MAP) Pulse Ox O2 Delivery O2 Flow Rate FiO2 10/06/24 14:18 110/75 10/06/24 13:17 100.8 10/06/24 13:16 84 20 94 40 10/06/24 12:00 Mechanical Ventilator+ Total Intake and Output 10/05/24 10/05/24 10/06/24 15:00 23:00 07:00 Intake Total 1539.7 ml 485.2 ml 266.874 ml Output Total 600 ml Balance 1539.7 ml 485.2 ml -333.126 ml medications Current Medications Medications Dose Ordered Sig/[place]acia Route Start Time Stop Time Status Last Admin Dose Admin Pantoprazole Sodium 40 mg DAILY IV 09/04/24 10:00 10/06/24 09:03 40 MG Sodium Chloride 10 ml QSHIFT@ IV 09/13/24 22:00 10/06/24 09:17 10 ML Albuterol 2.5 mg Q6HPRN PRN NEB 09/21/24 19:00 10/03/24 12:33 2.5 MG Ipratropium [place] 0.5 mg Q6HPRN PRN NEB 09/21/24 19:00 10/03/24 12:33 0.5 MG Midazolam HCl 50 ml @ 1 mls/hr Q24H IV 09/22/24 19:45 10/06/24 09:14 12 MLS/HR Enteral Nutritional Formula 1,000 ml 30ML/HR GT 09/23/24 12:30 10/04/24 17:37 1,000 ML Potassium Chloride/Sodium Chloride 1,000 ml @ 50 mls/hr Q20H IV 09/25/24 12:00 Cancel Acetaminophen 650 mg Q6HP PRN GT 09/30/24 11:45 10/06/24 12:25 650 MG Norepinephrine Bitartrate 250 ml @ 3.75 mls/hr Q24H IV 09/30/24 15:15 10/06/24 05:54 7.5 MLS/HR Metoclopramide HCl 10 mg TID IV 10/01/24 18:00 10/06/24 13:11 10 MG Fentanyl 25 mcg Q72H TD 10/04/24 09:15 Hold Vancomycin HCl 0 ml @ 0 mls/hr UD IV 10/04/24 12:45 Fentanyl Citrate 250 ml @ 2.5 mls/hr Q24H IV 10/04/24 15:00 10/06/24 06:44 25 MLS/HR Ceftriaxone Sodium 50 ml @ 100 mls/hr DAILY@09 IV 10/05/24 09:00 10/06/24 09:06 100 MLS/HR Propofol 100 ml @ 2.979 mls/ hr Q24H IV 10/04/24 18:30 10/06/24 12:25 8.937 MLS/HR Enoxaparin Sodium 100 mg BID SC 10/05/24 22:00 Hold 10/05/24 21:43 100 MG Lactulose 30 ml Q4HR PO 10/05/24 14:00 10/06/24 13:06 30 ML Sennosides 15 mg HS PO 10/05/24 22:00 Vancomycin HCl 250 ml @ 250 mls/hr Q12H IV 10/06/24 13:00 10/06/24 13:06 250 MLS/HR laboratory and microbiology Laboratory Tests 10/06/24 03:30 Test 10/06/24 03:30 Range/Units Serum Glucose 94 74-106 mg/dL Microbiology Date/Time Source Procedure Growth Status 10/04/24 12:40 Sputum Gram Stain - Final Resulted 10/04/24 12:40 Sputum Respiratory Culture - Preliminary Resulted 09/26/24 13:00 Abdomen Gram Stain - Final Complete 09/26/24 13:00 Wound Culture - Final Methicillin Resistant S.aureus Complete 09/24/24 10:59 Blood Blood Culture - Final NO GROWTH AFTER 5 DAYS OF INCUBATION. Complete 09/11/24 00:00 Voided Urine Urine Culture - Final Complete 09/06/24 13:00 Vaginal Vaginal Culture - Final Enterococcus faecalis Methicillin Resistant S.aureus Complete Problem List/Assessment/Plan Problem List/Assessment/Plan REMAINS INTUBATED VSS RESP FAILURE PENDING TRACHEOSTOMY CARD EVAL ONGOING CLEARED FOR SURGERY CONSIDER TRACHEOSTOMY AM Plan discussed with: Other Dietary Evaluation Review Comments: 1. Consider EN/TPN if NPO >7days 2. Continue plan of care Expected Outcomes/Goals: 1. Pt will meet >75% of estimated needs within 2-3 days MAZIN RUIZ MD Oct 06, 2024 14:21
--- NOTE | 2024-10-06 15:10 | DVHPN2 ---
Progress Note - Dictate Date Seen: Oct 06, 2024 Has the PT tested + for MRSA If YES, has PT been informed?: Yes Medical Necessity Reason Pt with a Central, PICC or Fol: Yes The following are medically ne: PICC Line, Betancourt Catheter Reason for betancourt catheter: Strict I&O Subjective Patient intubated again , she failed again extubation she has fevers today vital signs Vital Sign Date Time Temp Pulse Resp B/P (MAP) Pulse Ox O2 Delivery O2 Flow Rate FiO2 10/06/24 14:45 110/80 10/06/24 13:17 100.8 10/06/24 13:16 84 20 94 40 10/06/24 12:00 Mechanical Ventilator+ Total Intake and Output 10/05/24 10/05/24 10/06/24 15:00 23:00 07:00 Intake Total 1539.7 ml 485.2 ml 266.874 ml Output Total 600 ml Balance 1539.7 ml 485.2 ml -333.126 ml medications Current Medications Medications Dose Ordered Sig/Acacia Route Start Time Stop Time Status Last Admin Dose Admin Pantoprazole Sodium 40 mg DAILY IV 09/04/24 10:00 10/06/24 09:03 40 MG Sodium Chloride 10 ml QSHIFT@ IV 09/13/24 22:00 10/06/24 09:17 10 ML Albuterol 2.5 mg Q6HPRN PRN NEB 09/21/24 19:00 10/03/24 12:33 2.5 MG Ipratropium [place] 0.5 mg Q6HPRN PRN NEB 09/21/24 19:00 10/03/24 12:33 0.5 MG Midazolam HCl 50 ml @ 1 mls/hr Q24H IV 09/22/24 19:45 10/06/24 14:45 12 MLS/HR Enteral Nutritional Formula 1,000 ml 30ML/HR GT 09/23/24 12:30 10/04/24 17:37 1,000 ML Potassium Chloride/Sodium Chloride 1,000 ml @ 50 mls/hr Q20H IV 09/25/24 12:00 Cancel Acetaminophen 650 mg Q6HP PRN GT 09/30/24 11:45 10/06/24 12:25 650 MG Norepinephrine Bitartrate 250 ml @ 3.75 mls/hr Q24H IV 09/30/24 15:15 10/06/24 05:54 7.5 MLS/HR Metoclopramide HCl 10 mg TID IV 10/01/24 18:00 10/06/24 13:11 10 MG Fentanyl 25 mcg Q72H TD 10/04/24 09:15 Hold Vancomycin HCl 0 ml @ 0 mls/hr UD IV 10/04/24 12:45 Fentanyl Citrate 250 ml @ 2.5 mls/hr Q24H IV 10/04/24 15:00 10/06/24 06:44 25 MLS/HR Ceftriaxone Sodium 50 ml @ 100 mls/hr DAILY@09 IV 10/05/24 09:00 10/06/24 09:06 100 MLS/HR Propofol 100 ml @ 2.979 mls/ hr Q24H IV 10/04/24 18:30 10/06/24 12:25 8.937 MLS/HR Enoxaparin Sodium 100 mg BID SC 10/05/24 22:00 Hold 10/05/24 21:43 100 MG Lactulose 30 ml Q4HR PO 10/05/24 14:00 10/06/24 13:06 30 ML Sennosides 15 mg HS PO 10/05/24 22:00 Vancomycin HCl 250 ml @ 250 mls/hr Q12H IV 10/06/24 13:00 10/06/24 13:06 250 MLS/HR objective General: Intubated and sedated HEENT: Atraumatic,intubated Neck: No swelling Lungs: Equal air entry and clear to auscultation Cardiovascular: S1 S2 heard no murmur Abdomen: Soft nontender, no organomegaly, nondistended Neuro: sedated, unable to assess Psych: unable to assess laboratory and microbiology Laboratory Tests 10/06/24 03:30 Test 10/06/24 03:30 Range/Units Serum Glucose 94 74-106 mg/dL Assessment/Plan Patient is a 63-year-old female presented to the hospital with: #fever failed extubation, reintubated Staphylococcus aureus pneumonia ( MRSA) Streptococcus Pneumoniae pneumonia Septic shock resolving bacteremia : coag neg staphylococccus, possible contamination Acute Respiratory Failure [requiring mechanical ventilation] severe hypoxia Metabolic acidosis FEDE Morbidly obese BMI = 40 PE history Recommendations: covid/ flu screen. blood cx sent will follow Reintubation again on 10/04 and before on 09/22. possible plan for trach dcd meropenem however she is started on ceftriaxone Continue IV vancomycin [Restarted on 09/27 ] and now on meropenem ( since 09/30- : no clear indication for MEroepenm. Discontinued Levaquin 09/30 I feel she is already received prolonged course of antibiotics for MRSA pneumonia. 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 Patient had difficult extubation in the past, 4 years ago when she was intubated for surgery as per records. 09/26, Wound culture preliminary: Coagulase Negative Staphylococcus Antibiotics review Cefepime 09/02- 09/06 Meropenem 09/03-09/05 Ceftriaxone 09/07-ongoing last given 09/18 Vancomycin 09/03- 09/11 Linezolid 09/11- ongoing - 09/17 last given Blood culture:co ag neg staph, i think its contaminated. Recent on 09/07 showed no growth Pulmonary on board for vent management full code prognosis guarded crit time 35 mins spent during the encounter. Thank you for consult and for giving an opportunity to take care of this patient. Dietary Evaluation Review Comments: 1. Consider EN/TPN if NPO >7days 2. Continue plan of care Expected Outcomes/Goals: 1. Pt will meet >75% of estimated needs within 2-3 days Plan discussed with: ANGELLA Peng MD Oct 06, 2024 15:10
--- NOTE | 2024-10-06 15:11 | DVHPNRES ---
Progress Note Date Seen: Oct 06, 2024 Resident Creating Document: NAN AMAYA RESIDENT Has the PT tested + for MRSA If YES, has PT been informed?: Yes Medical Necessity Reason Pt with a Central, PICC or Fol: Yes The following are medically ne: PICC Line, Betancourt Catheter Reason for betancourt catheter: Strict I&O Subjective Review of Systems This is a 63-year-old female patient with PMHx of PE in 2015, multiple abdominal surgeries including hernia and bowel obstruction, lasts hernia surgery [place] [address] Anaya, right distal ureteral calculus in February 2024, AKA, rib fractures, chronic nicotine dependence in polysubstance use including methamphetamine and cannabis presented to the ER with a chief complaint of shortness of breaths. She was successfully intubated on 09/02. Per patient's daughter, patient became short of breath and febrile at 102.7 F, and therefore they had to call [facility]. Patient was saturating at 70% and therefore the patient was brought to the ER. She was intubated once before 4 years back after abdominal surgery at [facility] where she experienced difficult extubation. Patient is a nonsmoker for more than 50 years, currently smokes more than 1 pack a day. 09/05 - 2 small granulating wounds on abdomen are suture granulomas, sutures removed by surgeon 09/28 - Patient seen and examined at the bedside. Overnight patient became bradycardic, pulse was 30s, telemetry reviewed rhythm was regular, likely sinus bradycardia, sedation was turned off and the patient's pulse went up to 58 beats per minute which is her baseline. No bowel movements overnight. Patient made around 950 cc of urine. 40 mEq of potassium supplement and 2 g magnesium supplemented. Continue IV vancomycin and levofloxacin. Id on board. CPAP trial ended early as the patient became tachypneic with RR of 46/min. Raised Jevity 1.2 to 40 mL/hour. 09/29 - patient is sedated and mechanically intubated. Overnight patient made 450 mL of urine. ABG in the a.m. shows respiratory alkalosis, CO2 decreased from 38-32 and bicarb decreased from 25-22. Corrected calcium 12.3. PTH level 19. Chest x-ray shows left-sided aeration is better than as compared to when on admission. Patient underwent CPAP trial which and that as the patient became tachypneic. Discussed the option of tracheostomy with patient's daughter Toshia, she said that the family and herself does not want tracheostomy and did not think that patient would want tracheostomy. Patient's family requesting for bronchoscopy. Dr. Luis consulted for bronchoscopy per patient's family request. Bronchoscopy performed 09/29 shows Right lower lobe atelectasis due to mucous plugging. Mucous plugging from R6-R10 K 2.9, 80 mEq replenished. Mag 1.7, 2 g replenished. 09/30-patient seen and examined at bedside. 625 mL of urine overnight. 2 L of urine during the day of 09/29. No bowel movement. Lactulose started. T-max of 99.6 overnight. DC Levaquin today started meropenem. Family meeting for over 50 minutes today. Family declined tracheostomy, per daughter the patient would be very upset on tracheostomy and it would be a burden on her. CPAP trial earlier next week. 10/01 - patient seen and examined at bedside. DC Diflucan. Started Reglan IV 10 mg TID, started Colace and senna, lactulose increased to b.i.d.. Chest x-ray shows worsening pulmonary vascular congestion and bilateral effusion. Last bowel movement was on 23 September. Cumulative intake output less 4 L. ABG shows metabolic alkalosis with respiratory acidosis. Consider Diamox if patient becomes more alkalotic. 10/04 - over night T-max 99.7, pulse 110, blood pressure elevated to 181/103. Corrected calcium 13.2. Patient received 1 dose of calcitonin SC. Patient was tachypneic on BiPAP, rate in the range of 47-51. Patient was altered. Called family, per Toshia - family decided to go for tracheostomy, consult received for re-intubation. Patient reintubated at 12:10 p.m. ETT retracted 2 cm. Chest x- ray in a.m.. Surgeon consulted for tracheostomy. Planning tracheostomy on 07 October. Initiated half NS at 75 cc/hour. DC meropenem, switched to ceftriaxone and continue vancomycin. ABG showed compensated metabolic alkalosis. Last BM on . 10/05 - overnight low-grade fever 100.1 at the time of intubation, urine output 675 mL. No bowel movement. Increase lactulose to q.4. Increased dose of senna. On propofol 5, fentanyl 250, Versed 12 and Levophed4. 250 bolus of NS administered. ABG shows metabolic alkalosis with respiratory alkalosis. Respiratory rate decreased from 22-20. Corrected calcium 12.4 downtrending. 10/06 - patient is T-max 100.2 F. COVID, influenza, UA ordered. Tylenol 650 mg started. Discontinued half NS. Lasix 20 mg IV given in the a.m. urine output 500 mL post Lasix. Lasix 20 mg IV in the p.m.. NPO starting midnight. Holding Lovenox for tracheostomy. Repeat blood culture ordered. Objective vital signs Vital Sign Date Time Temp Pulse Resp B/P (MAP) Pulse Ox O2 Delivery O2 Flow Rate FiO2 10/06/24 15:00 99.1 78 23 108/77 (87) 97 210.4 10/06/24 14:00 Mechanical Ventilator+ 40 40 Total Intake and Output 10/05/24 10/05/24 10/06/24 15:00 23:00 07:00 Intake Total 1539.7 ml 485.2 ml 266.874 ml Output Total 600 ml Balance 1539.7 ml 485.2 ml -333.126 ml medications Current Medications Medications Dose Ordered Sig/Acacia Route Start Time Stop Time Status Last Admin Dose Admin Pantoprazole Sodium 40 mg DAILY IV 09/04/24 10:00 10/06/24 09:03 40 MG Sodium Chloride 10 ml QSHIFT@22 IV 09/13/24 22:00 10/06/24 09:17 10 ML Albuterol 2.5 mg Q6HPRN PRN NEB 09/21/24 19:00 10/03/24 12:33 2.5 MG Ipratropium [place] 0.5 mg Q6HPRN PRN NEB 09/21/24 19:00 10/03/24 12:33 0.5 MG Midazolam HCl 50 ml @ 1 mls/hr Q24H IV 09/22/24 19:45 10/06/24 14:45 12 MLS/HR Enteral Nutritional Formula 1,000 ml 30ML/HR GT 09/23/24 12:30 10/04/24 17:37 1,000 ML Potassium Chloride/Sodium Chloride 1,000 ml @ 50 mls/hr Q20H IV 09/25/24 12:00 Cancel Acetaminophen 650 mg Q6HP PRN GT 09/30/24 11:45 10/06/24 12:25 650 MG Norepinephrine Bitartrate 250 ml @ 3.75 mls/hr Q24H IV 09/30/24 15:15 10/06/24 05:54 7.5 MLS/HR Metoclopramide HCl 10 mg TID IV 10/01/24 18:00 10/06/24 13:11 10 MG Fentanyl 25 mcg Q72H TD 10/04/24 09:15 Hold Vancomycin HCl 0 ml @ 0 mls/hr UD IV 10/04/24 12:45 Fentanyl Citrate 250 ml @ 2.5 mls/hr Q24H IV 10/04/24 15:00 10/06/24 06:44 25 MLS/HR Ceftriaxone Sodium 50 ml @ 100 mls/hr DAILY@09 IV 10/05/24 09:00 10/06/24 09:06 100 MLS/HR Propofol 100 ml @ 2.979 mls/ hr Q24H IV 10/04/24 18:30 10/06/24 12:25 8.937 MLS/HR Enoxaparin Sodium 100 mg BID SC 10/05/24 22:00 Hold 10/05/24 21:43 100 MG Lactulose 30 ml Q4HR PO 10/05/24 14:00 10/06/24 13:06 30 ML Sennosides 15 mg HS PO 10/05/24 22:00 Vancomycin HCl 250 ml @ 250 mls/hr Q12H IV 10/06/24 13:00 10/06/24 13:06 250 MLS/HR Examination Obese female patient lying in bed, in no acute distress RASS -5 General: Morbidly obese, afebrile, palor, mucosae are moist, dilated and sluggish light reflex Cardiovascular: Tachycardic but Regular S1 and S2. No murmurs, gallops or rubs. No JVD elevation. Lower and upper extremity 1+ edema noticed. Respiratory: Equal bilateral air entry, saturating 92% on FiO2 of 40%. Abdomen: Abdomen is soft, hypoactive bowel sounds, multiple ventral hernia seen, right-sided dressing removed, no drainage noticed. Stage II decubitus ulcer seen with overlying erythema but no drainage noticed. Midline scar seen. Genitourinary: Betancourt catheter seen MSK/skin: Skin is dry and warm Neurological: Pupils are isocoric and reactive. laboratory and microbiology Laboratory Tests 10/06/24 03:30 Test 10/06/24 03:30 Range/Units Serum Glucose 94 74-106 mg/dL Microbiology Date/Time Source Procedure Growth Status 10/04/24 12:40 Sputum Gram Stain - Final Resulted 10/04/24 12:40 Sputum Respiratory Culture - Preliminary Resulted 09/26/24 13:00 Abdomen Gram Stain - Final Complete 09/26/24 13:00 Wound Culture - Final Methicillin Resistant S.aureus Complete 09/24/24 10:59 Blood Blood Culture - Final NO GROWTH AFTER 5 DAYS OF INCUBATION. Complete 09/11/24 00:00 Voided Urine Urine Culture - Final Complete 09/06/24 13:00 Vaginal Vaginal Culture - Final Enterococcus faecalis Methicillin Resistant S.aureus Complete Labs and/or images reviewed: Labs reviewed by me, Image(s) reviewed by me Problem List/Assessment/Plan Problem List/Assessment/Plan NEUROLOGY Acute metabolic encephalopathy likely due to septic shock - patient is sedated and mechanically ventilated, RASS -2 CARDIOVASCULAR Septic shock NSTEMI likely type 2 secondary to septic shock Probable right ventricular failure Prolonged QTC-resolved - cardiology recommended conservative management - echocardiogram shows dyskinesis of IVC, dilated RV and dilated RA. RV failure. Mild LVH and mild LV diastolic dysfunction with EF 65 % - blood culture 09/02 showed Staph hominis sensitive to vancomycin - repeat blood culture 09/11 showed Staphylococcus epidermidis sensitive to Cipro, clinda, linezolid, vancomycin - repeat blood culture 09/24 shows no growth - discontinued furosemide 40 mg IV daily starting 09/27 till 10/04 - Lasix 20 mg b.i.d. given 10/06 - repeat blood culture 10/06 ordered RESPIRATORY Acute hypoxic respiratory failure secondary to probable community-acquired pneumonia due to MRSA and S pneumo Advanced COPD Chronic nicotine dependence - patient was intubated and mechanically ventilated starting 09/02 - bronchoscopy completed 09/07, results showed MRSA positive - repeat bronchoscopy 09/08, showed comparatively lesser secretions - sputum culture 09/02 showed MRSA, strep pneumo - bronchial wash specimen collected 09/07 showed MRSA - repeat respiratory culture 09/22 showed MRSA and presumtive Juju albicans - received cefepime from 09/02 to 09/06 - received meropenem 11/03 to 09/05, - received vancomycin from 09/03 to 09/11 - received ceftriaxone 2 g daily from 09/13 to 09/19 - received linezolid from 09/11 to 09/17 - continue albuterol and ipratropium q.6 hour p.r.n. - restarted vancomycin 09/27 and ceftriaxone starting 10/04 - discontinued IV meropenem started from 09/30 till 10/04 - discontinued Diflucan-patient received from 09/27 till 10/01 - discontinued Levaquin 09/30 - 09/28 and 09/29 CPAP trial ended early as the patient became tachypneic with RR of 46/min. - 10/04- patient tachypneic on BiPAP, reintubated per family's request. Family considering tracheostomy. Consent signed. Surgeon consulted for tracheostomy - Dr. Luis consulted for bronchoscopy. Bronchoscopy performed 09/29 shows mucus plugs in the left upper lobe. - respiratory culture pending from 10/04 GI History of multiple surgeries secondary to hernia and bowel obstruction Multiple ventral wall hernias Possible bowel obstruction Transaminitis secondary to septic shock Rhabdomyolysis likely secondary to immobilization Surgeon consulted-recommended conservative management, small varices could not be performed at this moment due to respiratory status of the patient Continue IV pantoprazole 40 mg daily Increased dose of senna Lactulose increased to q.4 10/05 /KIDNEY FEDE, likely secondary to VMN - resolved Probable pelvic inflammatory disease Hyponatremia-resolved Hypomagnesemia Hypercalcemia -corrected calcium 13.2, PTH 19 - creatinine downtrending - creatinine kinase downtrended from 8215 to 77 - nephrology consulted, last hemodialysis session was performed on 09/10 - urine bacterial culture 09/02 showed less than 27541 CFU of coagulase-negative Staphylococcus - vaginal culture 09/06 showed coagulase-negative Staphylococcus, Enterococcus faecalis, MRSA sensitive to daptomycin, linezolid, vancomycin, TMP SMX - patient had purulent vaginal discharge - 40 mEq potassium and 2 g of magnesium administered 09/28 - monitor calcium, received 1 dose of calcitonin on 10/04. Discontinued half NS 10/06 ENDO Hypertriglyceridemia, TG 623 09/04, 320 at 09/15 Likely due to propofol, discontinued propofol Obesity - Continue Atorvastatin 40 mg ID Polysubstance use - Infectious disease consulted, continue management as above - Per patient's daughter, patient uses amphetamine, marijuana, smokes cigarettes - HIV testing negative - Hepatitis panel negative Hematology Lower extremity DVT - Ultrasound Doppler of lower extremities 08/15 shows nonocclusive DVT of the left popliteal vein - hold Lovenox 100 mg b.i.d. - discontinue Lovenox prior to tracheostomy LINES ETT, intubated on 09/02/2024, reintubated 10/04 IV access Left upper arm PICC line, placed on 09/13 Drips: Versed 00 Propofol 15 Levophed 4 Fentanyl 250 Nutrition Jevity 40 mL/hour NPO starting midnight Goals of care/advance care planning; FULL CODE; discussed on for 24 minutes. PUD prophylaxis; hold therapeutic Lovenox DVT prophylaxis; pantoprazole 40 mg IV daily Case discussed with Dr. Tobias. Tracheostomy planned for 10/07. Hold Lovenox starting 10/06 0600. NPO starting midnight Plan discussed with the patient's daughter over the bedside for more than 50 minutes, code status full code Critical care time including review of chart, discussion with the family, excluding procedures: 57 minutes Plan discussed with: Patient My Orders My Orders Orders - NAN AMAYA Procedure Category Date Status Time Chest Portable XY 10/06/24 Resulted 04:00 Abg W/ Co-Ox RT 10/06/24 Logged 04:00 Communication Order ORDERS 10/06/24 Transmitted 06:22 Vancomycin 1gm/250ml PHA 10/06/24 In Process Kit 13:00 Vancomycin Per SIMRAN 10/07/24 In Process Pharmacy Protoc 13:00 Vancomycin,Trough LAB 10/07/24 Verified 12:00 Covid19 Antigen [facility] LAB 10/06/24 Logged Rapid Influenza A&B LAB 10/06/24 Logged 12:12 Urinalysis LAB 10/06/24 Logged 12:12 Dietary Evaluation Review Comments: 1. Consider EN/TPN if NPO >7days 2. Continue plan of care Expected Outcomes/Goals: 1. Pt will meet >75% of estimated needs within 2-3 days Date of Service: Oct 06, 2024 Billing Provider: XI TOBIAS MD Common Visit Codes: 91794-[id number] CARE 30-74 MIN NAN AMAYA Oct 06, 2024 15:11 XI TOBIAS MD Oct 06, 2024 22:30
[2024-10-06 16:03] LABS: Urine Bacteria FEW /hpf (None Seen); Urine Blood TRACE /uL (Negative); Urine Clarity Turbid (Clear); Urine Color Colorless (Yellow); Urine Hyaline Cast FEW /lpf (0 - 2); Urine Mucus FEW (None Seen); Urine Protein, UAD Negative (Negative); Urine Specific Gravity 1.006 (1.001-1.035); Urine Squamous Epithelial Cell FEW /hpf (<5); Urine Urobilinogen Normal (Negative); Urine WBC 73 /hpf (0 - 5)
[2024-10-06 16:13] LABS: COVID19 ANTIGEN SOFIA FIA NEGATIVE (NEGATIVE)
[2024-10-06 16:44] LABS: Rapid Influenza A Negative (Negative); Rapid Influenza B Positive (Negative)
--- NOTE | 2024-10-06 16:56 | DVHPN2 ---
Progress Note - Dictate Date Seen: Oct 06, 2024 Has the PT tested + for MRSA If YES, has PT been informed?: Yes Medical Necessity Reason Pt with a Central, PICC or Fol: Yes The following are medically ne: PICC Line, Betancourt Catheter Reason for betancourt catheter: Strict I&O Subjective Patient seen and examined at bedside. Sedated, intubated on mechanical ventilator. Overnight events reviewed. vital signs Vital Sign Date Time Temp Pulse Resp B/P (MAP) Pulse Ox O2 Delivery O2 Flow Rate FiO2 10/06/24 16:09 111/76 10/06/24 16:00 20 95 Mechanical Ventilator+ 40 40 10/06/24 16:00 77 10/06/24 15:00 99.1 210.4 Total Intake and Output 10/05/24 10/05/24 10/06/24 15:00 23:00 07:00 Intake Total 1539.7 ml 485.2 ml 266.874 ml Output Total 600 ml Balance 1539.7 ml 485.2 ml -333.126 ml medications Current Medications Medications Dose Ordered Sig/[place] Route Start Time Stop Time Status Last Admin Dose Admin Pantoprazole Sodium 40 mg DAILY IV 09/04/24 10:00 10/06/24 09:03 40 MG Sodium Chloride 10 ml QSHIFT@ IV 09/13/24 22:00 10/06/24 09:17 10 ML Albuterol 2.5 mg Q6HPRN PRN NEB 09/21/24 19:00 10/03/24 12:33 2.5 MG Ipratropium [place] 0.5 mg Q6HPRN PRN NEB 09/21/24 19:00 10/03/24 12:33 0.5 MG Midazolam HCl 50 ml @ 1 mls/hr Q24H IV 09/22/24 19:45 10/06/24 14:45 12 MLS/HR Enteral Nutritional Formula 1,000 ml 30ML/HR GT 09/23/24 12:30 10/04/24 17:37 1,000 ML Potassium Chloride/Sodium Chloride 1,000 ml @ 50 mls/hr Q20H IV 09/25/24 12:00 Cancel Acetaminophen 650 mg Q6HP PRN GT 09/30/24 11:45 10/06/24 12:25 650 MG Norepinephrine Bitartrate 250 ml @ 3.75 mls/hr Q24H IV 09/30/24 15:15 10/06/24 05:54 7.5 MLS/HR Metoclopramide HCl 10 mg TID IV 10/01/24 18:00 10/06/24 13:11 10 MG Fentanyl 25 mcg Q72H TD 10/04/24 09:15 Hold Vancomycin HCl 0 ml @ 0 mls/hr UD IV 10/04/24 12:45 Fentanyl Citrate 250 ml @ 2.5 mls/hr Q24H IV 10/04/24 15:00 10/06/24 16:09 25 MLS/HR Ceftriaxone Sodium 50 ml @ 100 mls/hr DAILY@09 IV 10/05/24 09:00 10/06/24 09:06 100 MLS/HR Propofol 100 ml @ 2.979 mls/ hr Q24H IV 10/04/24 18:30 10/06/24 12:25 8.937 MLS/HR Enoxaparin Sodium 100 mg BID SC 10/05/24 22:00 Hold 10/05/24 21:43 100 MG Lactulose 30 ml Q4HR PO 10/05/24 14:00 10/06/24 13:06 30 ML Sennosides 15 mg HS PO 10/05/24 22:00 Vancomycin HCl 250 ml @ 250 mls/hr Q12H IV 10/06/24 13:00 10/06/24 13:06 250 MLS/HR objective Gen.: Patient lying in bed in medical ICU. Sedated, intubated on mechanical ventilator. Head: Normocephalic, atraumatic. Eyes: PERRLA. Ears: Normal external anatomy. Throat: Endotracheal tube and orogastric tube in place. Neck: Supple, trachea midline. Chest: Transmitted breath sounds bilaterally. Decreased air entry bilaterally. No wheezing. Bibasilar crackles. Cardiovascular: Positive S1, positive S2. Regular rate and rhythm. Abdomen: Positive bowel sounds in all 4 quadrants. Soft, nontender, nondistended. : Betancourt in place. Normal external genitalia. Rectal: Deferred. Skin: Warm, dry. Intact. Extremities: 2+ radial pulses bilaterally. No lower extremity edema. Neuro: Sedated. laboratory and microbiology Laboratory Tests 10/06/24 03:30 Test 10/06/24 03:30 Range/Units Serum Glucose 94 74-106 mg/dL Assessment/Plan Impression: Acute on chronic hypoxic respiratory failure On mechanical ventilator Pulmonary edema Pleural effusion, left Atelectasis Leukocytosis Lactic acidosis Morbid obesity, BMI 40 Events: Patient is intubated, on mechanical ventilator. On sedation: Versed/Propofol/Fentanyl On pressors, On Levophed ABG reviewed, compensated. CXR demonstrates bibasilar subsegmental atelectasis and/or pneumonia. Devices in place. Vent settings: RR 20, Vt 450, Peep 5, FIo2 40%. Continue bronchodilators Continue antibiotics Positive for influenza type B Elevated calcium, get redraw in the AM. Tube feeds for nutritional support Potassium supplementation Monitor renal function Monitor electrolytes. Supplement as necessary. Head of bed elevation Aspiration precautions Lactulose Influenza B positive Started Tamiflu course. Protonix for GI prophylaxis Awaiting trach/PEG. Continue to monitor respiratory status closely. Poor prognosis Labs and imaging reviewed. Rest of plan as noted below. Plan: S/p intubation, on mechanical ventilator Vent settings: RR 20, Vt 450, Peep 5, FIo2 40%. Bronchodilators Pressors for hemodynamic support. Titrate to keep MAP above 65 mmHg/SBP above 90 mmHg. Continue Antibiotics Monitor renal function Monitor ins/outs. Monitor electrolytes. Supplement as necessary. Monitor lactic acid On IVF Nutritional support. Jevity GI/DVT prophylaxis. Condition: Critical Prognosis: Poor given multiple comorbidities. Rest of plan per hospitalist and other consultants. A total of 35 minutes of critical care time was spent reviewing the patient record, examining the patient, making a diagnostic and therapeutic plan, discussing this plan with the medical personnel, following up on diagnostic studies and following the patient for clinical stability excluding any and all procedures. At least 50% of this time was spent in direct, [id number] contact. Thank you Dr. Banda for allowing me to participate in this patient's care. Further recommendations will depend on patient's clinical course. Please do not hesitate to contact me if you have any questions or concerns. This medical document was created using an electronic medical record system with [employer] system. Although this document has been carefully reviewed, there may still be some phonetic and typographical errors. These areas are purely typographical due to imperfections of the software programs, and do not reflect any compromise in the patient's medical care. Dietary Evaluation Review Comments: 1. Consider EN/TPN if NPO >7days 2. Continue plan of care Expected Outcomes/Goals: 1. Pt will meet >75% of estimated needs within 2-3 days Plan discussed with: Other (DEIDRE Ivan, RT, ) Critical Care Time(min): 35 SHAI SINGH MD Oct 06, 2024 16:56
[2024-10-06] MEDS ORDERED: ACETAMINOPHEN 650 mg PER 20.3 mL UD GT SCH (18:00)
[2024-10-06] MEDS: OSELTAMIVIR 75 MG CAP PO SCH (21:58)
[2024-10-07] VITALS (104 sets, daily range): BP systolic 82–128; BP diastolic 38–78; PULSE 73–106; RESP 14–25; TEMP 99–101.7; O2SAT 91–100
[2024-10-07 04:23] LABS: Basophils # (auto) 0 10 ^3/uL (0-0.2); Basophils % (auto) 0.3 % (0.0-2.0); Eosinophils # (auto) 0.2 10 ^3/uL (0-0.8); Eosinophils % (auto) 1.6 % (0.0-7.0); Hematocrit 31.7 % (36.0-46.0); Hemoglobin 10.3 g/dL (12.2-16.2); Lymphocytes # (auto) 0.9 10 ^3/uL (0.4-5.4); Lymphocytes % (auto) 7.2 % (10.0-50.0); Mean Corpuscular Hgb Conc. 32.4 g/dL (32.0-36.0); Mean Corpuscular Volume 89.3 fL (80.0-100.0); Monocytes # (auto) 1.1 10 ^3/uL (0-1.3); Monocytes % (auto) 8.5 % (0.0-12.0); Neutrophils # (auto) 10.5 10 ^3/uL (1.6-8.6); Neutrophils % (auto) 82.4 % (37.0-80.0); Nucleated Red Blood Cells % 0.1 %; Platelet Count (auto) 322 10^3/uL (140-450); Red Blood Cells 3.55 10^6/uL (4.0-5.20); Red Cell Distribution Width 14.3 % (11.8-14.3); White Blood Cell 12.7 10^3/uL (4.4-10.8)
[2024-10-07 04:38] LABS: Alanine Aminotransferase 23 U/L (7-40); Alkaline Phosphatase 102 U/L (46-116); Anion Gap 8 (5-15); Calcium 10.4 mg/dL (8.7-10.4); Carbon Dioxide 25 mmol/L (20-31); Glucose 80 mg/dL (74-106)
[2024-10-07 04:39] LABS: Aspartate Aminotransferase 33 U/L (13-40); Bilirubin, Total 0.3 mg/dL (0.2-1.0)
[2024-10-07 04:40] LABS: Chloride 112 mmol/L (98-107); Magnesium 1.5 mg/dL (1.6-2.6); Potassium 3.2 mmol/L (3.5-5.1); Sodium 145 mmol/L (136-145); Total Protein 5.4 g/dL (5.7-8.2)
[2024-10-07 04:43] LABS: INR 1.17 (0.9-1.15); Partial Thromboplastin Time 30.6 SEC (24.5-34.5); Prothrombin Time 12.3 sec (9.3-11.8)
[2024-10-07 05:09] LABS: Blood Urea Nitrogen 13 mg/dL (9-23)
--- NOTE | 2024-10-07 05:45 | DVH ---
CHEST RADIOGRAPH Indication: Follow up Technique: Single frontal view of the chest was obtained COMPARISON: XY CHEST PORTABLE on DOS: 10/06/24, XY CHEST PORTABLE on DOS: 10/05/24, XY CHEST PORTABLE on DOS: 10/04/24, XY CHEST PORTABLE on DOS: 10/04/24, XY CHEST PORTABLE on DOS: 10/03/24 FINDINGS: Lines and Tubes: Endotracheal tube and enteric catheter in satisfactory position. Lungs: Bilateral lower lobe airspace disease. Pleura: No effusion. No pneumothorax. Cardiomediastinal contours: Unremarkable Bones: Unremarkable IMPRESSION: Lines and tubes in satisfactory position. No significant interval change.
[2024-10-07] MEDS: MAGNESIUM SULFATE 1GM/100ML 100 ML IV ONE ×2 (06:50→10:24)
[2024-10-07] MEDS: POTASSIUM CHL 20MEQ/100ML 100 ML IV SCH (06:58)
[2024-10-07 07:48] LABS: Base Excess -0.6 mmol/L (-2.0-3.0)
--- NOTE | 2024-10-07 10:22 | DVHPN2 ---
Progress Note Date Seen: Oct 07, 2024 Has the PT tested + for MRSA If YES, has PT been informed?: Yes Medical Necessity Reason Pt with a Central, PICC or Fol: Yes The following are medically ne: PICC Line, Betancourt Catheter Reason for betancourt catheter: Strict I&O Objective vital signs Vital Sign Date Time Temp Pulse Resp B/P (MAP) Pulse Ox O2 Delivery O2 Flow Rate FiO2 10/07/24 10:01 95 20 97/56 (70) 96 40 10/07/24 10:00 101.3 214.3 10/07/24 06:00 Mechanical Ventilator+ Total Intake and Output 10/06/24 10/06/24 10/07/24 15:00 23:00 07:00 Intake Total 851.246 ml 417.529 ml 631.559 ml Output Total 2350 ml 350 ml Balance 851.246 ml -1932.471 ml 281.559 ml medications Current Medications Medications Dose Ordered Sig/Acacia Route Start Time Stop Time Status Last Admin Dose Admin Pantoprazole Sodium 40 mg DAILY IV 09/04/24 10:00 10/06/24 09:03 40 MG Sodium Chloride 10 ml QSHIFT@10,22 IV 09/13/24 22:00 10/06/24 22:13 10 ML Albuterol 2.5 mg Q6HPRN PRN NEB 09/21/24 19:00 10/03/24 12:33 2.5 MG Ipratropium [place] 0.5 mg Q6HPRN PRN NEB 09/21/24 19:00 10/03/24 12:33 0.5 MG Midazolam HCl 50 ml @ 1 mls/hr Q24H IV 09/22/24 19:45 10/07/24 07:52 12 MLS/HR Enteral Nutritional Formula 1,000 ml 30ML/HR GT 09/23/24 12:30 10/04/24 17:37 1,000 ML Potassium Chloride/Sodium Chloride 1,000 ml @ 50 mls/hr Q20H IV 09/25/24 12:00 Cancel Acetaminophen 650 mg Q6HP PRN GT 09/30/24 11:45 10/07/24 07:43 650 MG Norepinephrine Bitartrate 250 ml @ 3.75 mls/hr Q24H IV 09/30/24 15:15 10/06/24 05:54 7.5 MLS/HR Metoclopramide HCl 10 mg TID IV 10/01/24 18:00 10/07/24 05:08 10 MG Fentanyl 25 mcg Q72H TD 10/04/24 09:15 Hold Vancomycin HCl 0 ml @ 0 mls/hr UD IV 10/04/24 12:45 Fentanyl Citrate 250 ml @ 2.5 mls/hr Q24H IV 10/04/24 15:00 10/07/24 02:58 25 MLS/HR Ceftriaxone Sodium 50 ml @ 100 mls/hr DAILY@09 IV 10/05/24 09:00 10/06/24 09:06 100 MLS/HR Propofol 100 ml @ 2.979 mls/ hr Q24H IV 10/04/24 18:30 10/07/24 05:07 8.937 MLS/HR Enoxaparin Sodium 100 mg BID SC 10/05/24 22:00 Hold 10/05/24 21:43 100 MG Lactulose 30 ml Q4HR PO 10/05/24 14:00 10/06/24 21:58 30 ML Sennosides 15 mg HS PO 10/05/24 22:00 10/06/24 21:59 15 MG Vancomycin HCl 250 ml @ 250 mls/hr Q12H IV 10/06/24 13:00 10/07/24 01:38 250 MLS/HR Oseltamivir Phosphate 75 mg Q12H PO 10/06/24 20:00 10/11/24 19:59 10/06/24 21:58 75 MG laboratory and microbiology Laboratory Tests 10/07/24 03:54 Test 10/07/24 03:54 Range/Units Serum Glucose 80 74-106 mg/dL Microbiology Date/Time Source Procedure Growth Status 10/04/24 12:40 Sputum Gram Stain - Final Resulted 10/04/24 12:40 Sputum Respiratory Culture - Preliminary Resulted 09/26/24 13:00 Abdomen Gram Stain - Final Complete 09/26/24 13:00 Wound Culture - Final Methicillin Resistant S.aureus Complete 09/24/24 10:59 Blood Blood Culture - Final NO GROWTH AFTER 5 DAYS OF INCUBATION. Complete 09/11/24 00:00 Voided Urine Urine Culture - Final Complete 09/06/24 13:00 Vaginal Vaginal Culture - Final Enterococcus faecalis Methicillin Resistant S.aureus Complete Problem List/Assessment/Plan Problem List/Assessment/Plan REMAINS INTUBATED VSS RESP FAILURE PENDING TRACHEOSTOMY CARD EVAL ONGOING CLEARED FOR SURGERY TEMP 101 POS FOR INFLUENZA CONSIDER TRACHEOSTOMY AM BASED ON ONGOING EVAL NURSE AT BEDSIDE Plan discussed with: Other My Orders My Orders Orders - MAZIN RUIZ MD Procedure Category Date Status Time Npo After Midnight DIET 10/06/24 Transmitted Dinner Dietary Evaluation Review Comments: 1. Consider EN/TPN if NPO >7days 2. Continue plan of care Expected Outcomes/Goals: 1. Pt will meet >75% of estimated needs within 2-3 days MAZIN RUIZ MD Oct 07, 2024 10:22
--- NOTE | 2024-10-07 12:21 | DVHPN2 ---
Progress Note - Dictate Date Seen: Oct 07, 2024 Has the PT tested + for MRSA If YES, has PT been informed?: Yes Medical Necessity Reason Pt with a Central, PICC or Fol: Yes The following are medically ne: PICC Line, Betancourt Catheter Reason for betancourt catheter: Strict I&O Subjective Patient was seen and evaluated in follow up in the ICU. Patient is intubated and sedated on ventilator. FiO2 40%. Overnight, patient became febrile at 100. F. Per Dr. Hilaria Stewart tracheostomy was cancelled today due to patient being febrile. WBC 12.7, K 3.2, CL 112. Influenza B returned positive. vital signs Vital Sign Date Time Temp Pulse Resp B/P (MAP) Pulse Ox O2 Delivery O2 Flow Rate FiO2 10/07/24 11:25 98/61 10/07/24 10:45 100.8 85 20 97 213.4 10/07/24 10:44 40 10/07/24 08:00 Mechanical Ventilator+ Total Intake and Output 10/06/24 10/06/24 10/07/24 15:00 23:00 07:00 Intake Total 851.246 ml 417.529 ml 877.496 ml Output Total 2350 ml 350 ml Balance 851.246 ml -1932.471 ml 527.496 ml medications Current Medications Medications Dose Ordered Sig/Acacia Route Start Time Stop Time Status Last Admin Dose Admin Pantoprazole Sodium 40 mg DAILY IV 09/04/24 10:00 10/07/24 10:25 40 MG Sodium Chloride 10 ml QSHIFT@ IV 09/13/24 22:00 10/07/24 10:25 10 ML Albuterol 2.5 mg Q6HPRN PRN NEB 09/21/24 19:00 10/03/24 12:33 2.5 MG Ipratropium [place] 0.5 mg Q6HPRN PRN NEB 09/21/24 19:00 10/03/24 12:33 0.5 MG Midazolam HCl 50 ml @ 1 mls/hr Q24H IV 09/22/24 19:45 10/07/24 11:25 12 MLS/HR Enteral Nutritional Formula 1,000 ml 30ML/HR GT 09/23/24 12:30 10/04/24 17:37 1,000 ML Potassium Chloride/Sodium Chloride 1,000 ml @ 50 mls/hr Q20H IV 09/25/24 12:00 Cancel Acetaminophen 650 mg Q6HP PRN GT 09/30/24 11:45 10/07/24 07:43 650 MG Norepinephrine Bitartrate 250 ml @ 3.75 mls/hr Q24H IV 09/30/24 15:15 10/06/24 05:54 7.5 MLS/HR Metoclopramide HCl 10 mg TID IV 10/01/24 18:00 10/07/24 05:08 10 MG Fentanyl 25 mcg Q72H TD 10/04/24 09:15 Hold Vancomycin HCl 0 ml @ 0 mls/hr UD IV 10/04/24 12:45 Fentanyl Citrate 250 ml @ 2.5 mls/hr Q24H IV 10/04/24 15:00 10/07/24 11:23 25 MLS/HR Ceftriaxone Sodium 50 ml @ 100 mls/hr DAILY@09 IV 10/05/24 09:00 10/07/24 10:25 100 MLS/HR Propofol 100 ml @ 2.979 mls/ hr Q24H IV 10/04/24 18:30 10/07/24 05:07 8.937 MLS/HR Enoxaparin Sodium 100 mg BID SC 10/05/24 22:00 Hold 10/05/24 21:43 100 MG Lactulose 30 ml Q4HR PO 10/05/24 14:00 10/07/24 10:25 30 ML Sennosides 15 mg HS PO 10/05/24 22:00 10/06/24 21:59 15 MG Vancomycin HCl 250 ml @ 250 mls/hr Q12H IV 10/06/24 13:00 10/07/24 01:38 250 MLS/HR Oseltamivir Phosphate 75 mg Q12H PO 10/06/24 20:00 10/11/24 19:59 10/07/24 10:25 75 MG objective GENERAL: Intubated on ventilator. Morbidly obese. LUNGS: Decreased breath sounds. CARDIOVASCULAR: Heart sounds are good. ABDOMEN: Soft. Morbid pannus limited physical palpation. SKIN: Multiple scars to abdomen. laboratory and microbiology Laboratory Tests 10/07/24 03:54 Test 10/07/24 03:54 Range/Units Serum Glucose 80 74-106 mg/dL Problem List Septic shock. Acute on chronic respiratory failure. NSTEMI type II secondary to above. Rule out structural heart disease. Prolonged QT interval. Morbid obesity, Class 3. Influenza B Assessment/Plan Continued all current supportive medical care. DVT and GI prophylactics. Diuretics with Lasix. Nebulized breathing treatments. Vasopressors for hemodynamic support. Additional plan as per the hospital course. Critical care time of 45 minutes provided to include time spent evaluation of patient at bedside, when appropriate patient/family education for diagnosis, treatment plan, review of pertinent medical information and discussion of care with specialty providers and PCP. Mechanical ventilator parameters, treatment and adjustments have personally been reviewed by me and treatment plan by rug touch up painter has also been reviewed. Dietary Evaluation Review Comments: 1. Consider EN/TPN if NPO >7days 2. Continue plan of care Expected Outcomes/Goals: 1. Pt will meet >75% of estimated needs within 2-3 days Plan discussed with: Other RELL STEWART MD Oct 07, 2024 11:36
[2024-10-07] MEDS: MEROPENEM 1GM IVPB 50 ML IV ONE (15:35)
--- NOTE | 2024-10-07 15:44 | DVHPN2 ---
Progress Note - Dictate Date Seen: Oct 07, 2024 Has the PT tested + for MRSA If YES, has PT been informed?: Yes Medical Necessity Reason Pt with a Central, PICC or Fol: Yes The following are medically ne: PICC Line, Betancourt Catheter Reason for betancourt catheter: Strict I&O Subjective Patient is intubated and sedated on ventilator. FiO2 40%. Overnight, patient became febrile at 100. F. Per Dr. Hilaria Stewart tracheostomy was cancelled today due to patient being febrile. vital signs Vital Sign Date Time Temp Pulse Resp B/P (MAP) Pulse Ox O2 Delivery O2 Flow Rate FiO2 10/07/24 15:29 103/54 10/07/24 15:14 101.5 10/07/24 14:45 101 21 97 10/07/24 14:14 40 10/07/24 14:00 Mechanical Ventilator+ Total Intake and Output 10/06/24 10/06/24 10/07/24 15:00 23:00 07:00 Intake Total 851.246 ml 417.529 ml 877.496 ml Output Total 2350 ml 350 ml Balance 851.246 ml -1932.471 ml 527.496 ml medications Current Medications Medications Dose Ordered Sig/Acacia Route Start Time Stop Time Status Last Admin Dose Admin Pantoprazole Sodium 40 mg DAILY IV 09/04/24 10:00 10/07/24 10:25 40 MG Sodium Chloride 10 ml QSHIFT@ IV 09/13/24 22:00 10/07/24 10:25 10 ML Albuterol 2.5 mg Q6HPRN PRN NEB 09/21/24 19:00 10/03/24 12:33 2.5 MG Ipratropium [place] 0.5 mg Q6HPRN PRN NEB 09/21/24 19:00 10/03/24 12:33 0.5 MG Midazolam HCl 50 ml @ 1 mls/hr Q24H IV 09/22/24 19:45 10/07/24 15:25 12 MLS/HR Enteral Nutritional Formula 1,000 ml 30ML/HR GT 09/23/24 12:30 10/04/24 17:37 1,000 ML Potassium Chloride/Sodium Chloride 1,000 ml @ 50 mls/hr Q20H IV 09/25/24 12:00 Cancel Acetaminophen 650 mg Q6HP PRN GT 09/30/24 11:45 10/07/24 15:14 650 MG Norepinephrine Bitartrate 250 ml @ 3.75 mls/hr Q24H IV 09/30/24 15:15 10/06/24 05:54 7.5 MLS/HR Metoclopramide HCl 10 mg TID IV 10/01/24 18:00 10/07/24 14:31 10 MG Vancomycin HCl 0 ml @ 0 mls/hr UD IV 10/04/24 12:45 Fentanyl Citrate 250 ml @ 2.5 mls/hr Q24H IV 10/04/24 15:00 10/07/24 11:23 25 MLS/HR Propofol 100 ml @ 2.979 mls/ hr Q24H IV 10/04/24 18:30 10/07/24 15:29 8.937 MLS/HR Enoxaparin Sodium 100 mg BID SC 10/05/24 22:00 Hold 10/05/24 21:43 100 MG Lactulose 30 ml Q4HR PO 10/05/24 14:00 10/07/24 14:31 30 ML Sennosides 15 mg HS PO 10/05/24 22:00 10/06/24 21:59 15 MG Vancomycin HCl 250 ml @ 250 mls/hr Q12H IV 10/06/24 13:00 10/07/24 14:31 250 MLS/HR Oseltamivir Phosphate 75 mg Q12H PO 10/06/24 20:00 10/11/24 19:59 10/07/24 10:25 75 MG Meropenem 50 ml @ 17 mls/hr Q8HR IV 10/07/24 22:00 objective General: Intubated and sedated HEENT: Atraumatic,intubated Neck: No swelling Lungs: Equal air entry and clear to auscultation Cardiovascular: S1 S2 heard no murmur Abdomen: Soft nontender, no organomegaly, nondistended Neuro: sedated, unable to assess Psych: unable to assess laboratory and microbiology Laboratory Tests 10/07/24 03:54 Test 10/07/24 03:54 Range/Units Serum Glucose 80 74-106 mg/dL Assessment/Plan Patient is a 63-year-old female presented to the hospital with: #Influenza B failed extubation, reintubated Staphylococcus aureus pneumonia ( MRSA) Streptococcus Pneumoniae pneumonia Septic shock resolving bacteremia : coag neg staphylococccus, possible contamination Acute Respiratory Failure [requiring mechanical ventilation] severe hypoxia Metabolic acidosis FEDE Morbidly obese BMI = 40 PE history Recommendations: Flu B +ve on 10/06. 10/06, blood culture showed no growth 10/06, urine culture preliminary showed no growth 10/04, sputum culture showed no growth Cont Tamiflu for 5-7 days. most recent cultures are negative hence recommend discontinuing Vancomycin and Meropenem. recurrent intubations due as she desats after extubation Reintubation again on 10/04 and before on 09/22. possible plan for trach I feel she is already received prolonged course of antibiotics for MRSA pneumonia. 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 Patient had difficult extubation in the past, 4 years ago when she was intubated for surgery as per records. Antibiotics review Cefepime 09/02- 09/06 Meropenem 09/03-09/05 n Ceftriaxone 09/07- 09/18 MEropenem 09/30- now Vancomycin 09/03- 09/11 Linezolid 09/11- 09/17 l Vancomycin from 09/27- now Pulmonary on board for vent management full code prognosis guarded crit time 35 mins spent during the encounter. Thank you for consult and for giving an opportunity to take care of this patient. Dietary Evaluation Review Comments: 1. Consider EN/TPN if NPO >7days 2. Continue plan of care Expected Outcomes/Goals: 1. Pt will meet >75% of estimated needs within 2-3 days Plan discussed with: ANGELLA Peng MD Oct 07, 2024 15:44
--- NOTE | 2024-10-07 20:14 | DVHPNRES ---
Progress Note Date Seen: Oct 07, 2024 Resident Creating Document: NAN AMAYA RESIDENT Has the PT tested + for MRSA If YES, has PT been informed?: Yes Medical Necessity Reason Pt with a Central, PICC or Fol: Yes The following are medically ne: PICC Line, Betancourt Catheter Reason for betancourt catheter: Strict I&O Subjective Review of Systems This is a 63-year-old female patient with PMHx of PE in 2015, multiple abdominal surgeries including hernia and bowel obstruction, lasts hernia surgery [place] [address] Anaya, right distal ureteral calculus in February 2024, AKA, rib fractures, chronic nicotine dependence in polysubstance use including methamphetamine and cannabis presented to the ER with a chief complaint of shortness of breaths. She was successfully intubated on 09/02. Per patient's daughter, patient became short of breath and febrile at 102.7 F, and therefore they had to call [facility]. Patient was saturating at 70% and therefore the patient was brought to the ER. She was intubated once before 4 years back after abdominal surgery at [facility] where she experienced difficult extubation. Patient is a nonsmoker for more than 50 years, currently smokes more than 1 pack a day. 09/05 - 2 small granulating wounds on abdomen are suture granulomas, sutures removed by surgeon 09/28 - Patient seen and examined at the bedside. Overnight patient became bradycardic, pulse was 30s, telemetry reviewed rhythm was regular, likely sinus bradycardia, sedation was turned off and the patient's pulse went up to 58 beats per minute which is her baseline. No bowel movements overnight. Patient made around 950 cc of urine. 40 mEq of potassium supplement and 2 g magnesium supplemented. Continue IV vancomycin and levofloxacin. Id on board. CPAP trial ended early as the patient became tachypneic with RR of 46/min. Raised Jevity 1.2 to 40 mL/hour. 09/29 - patient is sedated and mechanically intubated. Overnight patient made 450 mL of urine. ABG in the a.m. shows respiratory alkalosis, CO2 decreased from 38-32 and bicarb decreased from 25-22. Corrected calcium 12.3. PTH level 19. Chest x-ray shows left-sided aeration is better than as compared to when on admission. Patient underwent CPAP trial which and that as the patient became tachypneic. Discussed the option of tracheostomy with patient's daughter Toshia, she said that the family and herself does not want tracheostomy and did not think that patient would want tracheostomy. Patient's family requesting for bronchoscopy. Dr. Luis consulted for bronchoscopy per patient's family request. Bronchoscopy performed 09/29 shows Right lower lobe atelectasis due to mucous plugging. Mucous plugging from R6-R10 K 2.9, 80 mEq replenished. Mag 1.7, 2 g replenished. 09/30-patient seen and examined at bedside. 625 mL of urine overnight. 2 L of urine during the day of 09/29. No bowel movement. Lactulose started. T-max of 99.6 overnight. DC Levaquin today started meropenem. Family meeting for over 50 minutes today. Family declined tracheostomy, per daughter the patient would be very upset on tracheostomy and it would be a burden on her. CPAP trial earlier next week. 10/01 - patient seen and examined at bedside. DC Diflucan. Started Reglan IV 10 mg TID, started Colace and senna, lactulose increased to b.i.d.. Chest x-ray shows worsening pulmonary vascular congestion and bilateral effusion. Last bowel movement was on 23 September. Cumulative intake output less 4 L. ABG shows metabolic alkalosis with respiratory acidosis. Consider Diamox if patient becomes more alkalotic. 10/04 - over night T-max 99.7, pulse 110, blood pressure elevated to 181/103. Corrected calcium 13.2. Patient received 1 dose of calcitonin SC. Patient was tachypneic on BiPAP, rate in the range of 47-51. Patient was altered. Called family, per Toshia - family decided to go for tracheostomy, consult received for re-intubation. Patient reintubated at 12:10 p.m. ETT retracted 2 cm. Chest x- ray in a.m.. Surgeon consulted for tracheostomy. Planning tracheostomy on 07 October. Initiated half NS at 75 cc/hour. DC meropenem, switched to ceftriaxone and continue vancomycin. ABG showed compensated metabolic alkalosis. Last BM on . 10/05 - overnight low-grade fever 100.1 at the time of intubation, urine output 675 mL. No bowel movement. Increase lactulose to q.4. Increased dose of senna. On propofol 5, fentanyl 250, Versed 12 and Levophed4. 250 bolus of NS administered. ABG shows metabolic alkalosis with respiratory alkalosis. Respiratory rate decreased from 22-20. Corrected calcium 12.4 downtrending. 10/06 - patient is T-max 100.2 F. COVID, influenza, UA ordered. Tylenol 650 mg started. Discontinued half NS. Lasix 20 mg IV given in the a.m. urine output 500 mL post Lasix. Lasix 20 mg IV in the p.m.. NPO starting midnight. Holding Lovenox for tracheostomy. Repeat blood culture ordered. 10/07-patient is having temperature 101.1 F. tracheostomy postponed. WBC count elevated from -. Change Betancourt. Repeat urine culture. Started meropenem. Levophed requirement increased from 2 to 12 Repeat respiratory culture, blood culture, urine culture preliminary are negative. Objective vital signs Vital Sign Date Time Temp Pulse Resp B/P (MAP) Pulse Ox O2 Delivery O2 Flow Rate FiO2 10/07/24 19:27 100/52 10/07/24 18:25 81 20 98 40 10/07/24 18:00 Mechanical Ventilator+ 10/07/24 18:00 99.9 211.8 Total Intake and Output 10/06/24 10/06/24 10/07/24 15:00 23:00 07:00 Intake Total 851.246 ml 417.529 ml 877.496 ml Output Total 2350 ml 350 ml Balance 851.246 ml -1932.471 ml 527.496 ml medications Current Medications Medications Dose Ordered Sig/Acacia Route Start Time Stop Time Status Last Admin Dose Admin Pantoprazole Sodium 40 mg DAILY IV 09/04/24 10:00 10/07/24 10:25 40 MG Sodium Chloride 10 ml QSHIFT@ IV 09/13/24 22:00 10/07/24 10:25 10 ML Albuterol 2.5 mg Q6HPRN PRN NEB 09/21/24 19:00 10/03/24 12:33 2.5 MG Ipratropium [place] 0.5 mg Q6HPRN PRN NEB 09/21/24 19:00 10/03/24 12:33 0.5 MG Midazolam HCl 50 ml @ 1 mls/hr Q24H IV 09/22/24 19:45 10/07/24 19:27 12 MLS/HR Enteral Nutritional Formula 1,000 ml 30ML/HR GT 09/23/24 12:30 10/04/24 17:37 1,000 ML Potassium Chloride/Sodium Chloride 1,000 ml @ 50 mls/hr Q20H IV 09/25/24 12:00 Cancel Acetaminophen 650 mg Q6HP PRN GT 09/30/24 11:45 10/07/24 15:14 650 MG Norepinephrine Bitartrate 250 ml @ 3.75 mls/hr Q24H IV 09/30/24 15:15 10/06/24 05:54 7.5 MLS/HR Metoclopramide HCl 10 mg TID IV 10/01/24 18:00 10/07/24 14:31 10 MG Vancomycin HCl 0 ml @ 0 mls/hr UD IV 10/04/24 12:45 Fentanyl Citrate 250 ml @ 2.5 mls/hr Q24H IV 10/04/24 15:00 10/07/24 11:23 25 MLS/HR Propofol 100 ml @ 2.979 mls/ hr Q24H IV 10/04/24 18:30 10/07/24 15:29 8.937 MLS/HR Enoxaparin Sodium 100 mg BID SC 10/05/24 22:00 Hold 10/05/24 21:43 100 MG Lactulose 30 ml Q4HR PO 10/05/24 14:00 10/07/24 17:23 30 ML Sennosides 15 mg HS PO 10/05/24 22:00 10/06/24 21:59 15 MG Vancomycin HCl 250 ml @ 250 mls/hr Q12H IV 10/06/24 13:00 10/07/24 14:31 250 MLS/HR Oseltamivir Phosphate 75 mg Q12H PO 10/06/24 20:00 10/11/24 19:59 10/07/24 10:25 75 MG Meropenem 50 ml @ 17 mls/hr Q8HR IV 10/07/24 22:00 Examination Obese female patient lying in bed, in no acute distress RASS -5 General: Morbidly obese, afebrile, palor, mucosae are moist, dilated and sluggish light reflex Cardiovascular: Tachycardic but Regular S1 and S2. No murmurs, gallops or rubs. No JVD elevation. Lower and upper extremity 1+ edema noticed. Respiratory: Equal bilateral air entry, saturating 92% on FiO2 of 40%. Abdomen: Abdomen is soft, normal bowel sounds, multiple ventral hernia seen, right-sided dressing removed, no drainage noticed. Stage II decubitus ulcer seen with overlying erythema but no drainage noticed. Midline scar seen. Genitourinary: Betancourt catheter seen MSK/skin: Skin is dry and warm Neurological: Pupils are isocoric and reactive. laboratory and microbiology Laboratory Tests 10/07/24 03:54 Test 10/07/24 03:54 Range/Units Serum Glucose 80 74-106 mg/dL Microbiology Date/Time Source Procedure Growth Status 10/06/24 14:50 Blood Blood Culture - Preliminary NO GROWTH AFTER 24 HOURS OF INCUBATION. Resulted 10/06/24 14:11 Urine - Betancourt Port Urine Culture - Preliminary Resulted 10/04/24 12:40 Sputum Gram Stain - Final Complete 10/04/24 12:40 Sputum Respiratory Culture - Final Complete 09/26/24 13:00 Abdomen Gram Stain - Final Complete 09/26/24 13:00 Wound Culture - Final Methicillin Resistant S.aureus Complete 09/06/24 13:00 Vaginal Vaginal Culture - Final Enterococcus faecalis Methicillin Resistant S.aureus Complete Labs and/or images reviewed: Labs reviewed by me, Image(s) reviewed by me Problem List/Assessment/Plan Problem List/Assessment/Plan NEUROLOGY Acute metabolic encephalopathy likely due to septic shock - patient is sedated and mechanically ventilated, RASS -2 CARDIOVASCULAR Septic shock NSTEMI likely type 2 secondary to septic shock Probable right ventricular failure Prolonged QTC-resolved - cardiology recommended conservative management - echocardiogram shows dyskinesis of IVC, dilated RV and dilated RA. RV failure. Mild LVH and mild LV diastolic dysfunction with EF 65 % - blood culture 09/02 showed Staph hominis sensitive to vancomycin - repeat blood culture 09/11 showed Staphylococcus epidermidis sensitive to Cipro, clinda, linezolid, vancomycin - repeat blood culture 09/24 shows no growth - repeat blood culture 10/06 shows no growth - discontinued furosemide 40 mg IV daily starting 09/27 till 10/04 - Lasix 20 mg b.i.d. given 10/06 - repeat blood culture 10/06 ordered RESPIRATORY Acute hypoxic respiratory failure secondary to probable community-acquired pneumonia due to MRSA and S pneumo Advanced COPD Chronic nicotine dependence Influenza B infection - patient was intubated and mechanically ventilated starting 09/02 - bronchoscopy completed 09/07, results showed MRSA positive - repeat bronchoscopy 09/08, showed comparatively lesser secretions - sputum culture 09/02 showed MRSA, strep pneumo - bronchial wash specimen collected 09/07 showed MRSA - repeat respiratory culture 09/22 showed MRSA and presumtive Juju albicans - received cefepime from 09/02 to 09/06 - received meropenem 11/03 to 09/05, - received vancomycin from 09/03 to 09/11 - received ceftriaxone 2 g daily from 09/13 to 09/19 - received linezolid from 09/11 to 09/17 - continue albuterol and ipratropium q.6 hour p.r.n. - restarted vancomycin 09/27 and ceftriaxone starting 10/04, switched ceftriaxone to meropenem 10/07, started oseltamivir 75 mg q.12 10/06 - discontinued IV meropenem started from 09/30 till 10/04 - discontinued Diflucan-patient received from 09/27 till 10/01 - discontinued Levaquin 09/30 - 09/28 and 09/29 CPAP trial ended early as the patient became tachypneic with RR of 46/min. - 10/04- patient tachypneic on BiPAP, reintubated per family's request. Family considering tracheostomy. Consent signed. Surgeon consulted for tracheostomy - Dr. Luis consulted for bronchoscopy. Bronchoscopy performed 09/29 shows mucus plugs in the left upper lobe. - respiratory culture pending from 10/04 GI History of multiple surgeries secondary to hernia and bowel obstruction Multiple ventral wall hernias Possible bowel obstruction Transaminitis secondary to septic shock Rhabdomyolysis likely secondary to immobilization Surgeon consulted-recommended conservative management, small varices could not be performed at this moment due to respiratory status of the patient Continue IV pantoprazole 40 mg daily Continue senna b.i.d. Lactulose increased to q.4 10/05 /KIDNEY FEDE, likely secondary to VMN - resolved Probable pelvic inflammatory disease Hyponatremia-resolved Hypomagnesemia Hypercalcemia -corrected calcium 13.2, PTH 19 - creatinine downtrending - creatinine kinase downtrended from 8215 to 77 - nephrology consulted, last hemodialysis session was performed on 09/10 - urine bacterial culture 09/02 showed less than 44056 CFU of coagulase-negative Staphylococcus - vaginal culture 09/06 showed coagulase-negative Staphylococcus, Enterococcus faecalis, MRSA sensitive to daptomycin, linezolid, vancomycin, TMP SMX - patient had purulent vaginal discharge - 40 mEq potassium and 2 g of magnesium administered 09/28 - monitor calcium, received 1 dose of calcitonin on 10/04. Discontinued half NS 10/06 - repeat urine culture 10/07 ordered ENDO Hypertriglyceridemia, TG 623 09/04, 320 at 09/15 Likely due to propofol, discontinued propofol Obesity - Continue Atorvastatin 40 mg ID Polysubstance use - Infectious disease consulted, continue management as above - Per patient's daughter, patient uses amphetamine, marijuana, smokes cigarettes - HIV testing negative - Hepatitis panel negative Hematology Lower extremity DVT - Ultrasound Doppler of lower extremities 08/15 shows nonocclusive DVT of the left popliteal vein - hold Lovenox 100 mg b.i.d. - discontinue Lovenox prior to tracheostomy LINES ETT, intubated on 09/02/2024, reintubated 10/04 IV access Left upper arm PICC line, placed on 09/13 Betancourt changed 10/07 Drips: Versed 12 Propofol 15 Levophed 12 Fentanyl 250 Nutrition Jevity 40 mL/hour Goals of care/advance care planning; FULL CODE; discussed on for 24 minutes. PUD prophylaxis; hold therapeutic Lovenox DVT prophylaxis; pantoprazole 40 mg IV daily Case discussed with Dr. Pinon. Tracheostomy on hold. IV Meropenem started. Plan discussed with the patient's daughter over the bedside for more than 50 minutes, code status full code Critical care time including review of chart, discussion with the family, excluding procedures: 57 minutes Plan discussed with: Patient, Daughter My Orders My Orders Orders - NAN AMAYA Procedure Category Date Status Time Vancomycin,Trough LAB 10/08/24 Verified 00:00 Vancomycin Per SIMRAN 10/08/24 In Process Pharmacy Protoc 00:00 Dietary Evaluation Review Comments: 1. Consider EN/TPN if NPO >7days 2. Continue plan of care Expected Outcomes/Goals: 1. Pt will meet >75% of estimated needs within 2-3 days Date of Service: Oct 07, 2024 Billing Provider: DANE PINON MD Common Visit Codes: 44392-[id number] CARE 30-74 MIN NAN AMAYA Oct 07, 2024 20:14 DANE PINON MD Oct 08, 2024 14:05
[2024-10-07] MEDS: MEROPENEM 1GM IVPB 50 ML IV SCH (21:32)
[2024-10-07] MEDS: SENNA 8.6 MG TAB PO SCH (21:34)
[2024-10-08] VITALS (108 sets, daily range): BP systolic 84–127; BP diastolic 49–76; PULSE 71–100; RESP 13–22; TEMP 98.6–99.9; O2SAT 92–100
[2024-10-08 04:22] LABS: Hematocrit 38.5 % (36.0-46.0); Hemoglobin 12.1 g/dL (12.2-16.2); Mean Corpuscular Hemoglobin 28.9 pg (28.0-32.0); Mean Corpuscular Hgb Conc. 31.4 g/dL (32.0-36.0); Platelet Count (auto) 332 10^3/uL (140-450); Red Blood Cells 4.19 10^6/uL (4.0-5.20); Red Cell Distribution Width 14.7 % (11.8-14.3); White Blood Cell 17.9 10^3/uL (4.4-10.8)
[2024-10-08 04:23] LABS: Alanine Aminotransferase 26 U/L (7-40); Alkaline Phosphatase 108 U/L (46-116); Anion Gap 7 (5-15); Aspartate Aminotransferase 25 U/L (13-40); BUN/Creatinine Ratio 15.6 (10.0-20.0); Bilirubin, Total 0.4 mg/dL (0.2-1.0); Blood Urea Nitrogen 10 mg/dL (9-23); Carbon Dioxide 23 mmol/L (20-31); Magnesium 2.1 mg/dL (1.6-2.6); Total Protein 5.9 g/dL (5.7-8.2)
[2024-10-08 04:33] LABS: Band Neutrophils % (manual) 0; Basophils % (manual) 0 (0.0-2.0); Blast Cells 0; Metamyelocytes % 0; Myelocytes % 0; Promyelocytes % 0; Reactive Lymphocytes 0
[2024-10-08 04:45] LABS: Albumin 3.1 g/dL (3.2-4.8); Calcium 11.4 mg/dL (8.7-10.4); Chloride 109 mmol/L (98-107); Glucose 109 mg/dL (74-106); Sodium 139 mmol/L (136-145)
--- NOTE | 2024-10-08 05:17 | DVH ---
CHEST RADIOGRAPH Indication: Follow up Technique: Single frontal view of the chest was obtained COMPARISON: XY CHEST PORTABLE on DOS: 10/07/24, XY CHEST PORTABLE on DOS: 10/06/24, XY CHEST PORTABLE on DOS: 10/05/24, XY CHEST PORTABLE on DOS: 10/04/24, XY CHEST PORTABLE on DOS: 10/04/24, XY CHEST P ORTABLE on DOS: 10/07/24 FINDINGS: Lines and Tubes: Endotracheal tube and enteric catheter in satisfactory position. Lungs: Bilateral lower lobe airspace disease. Low lung volumes. Pleura: No effusion. No pneumothorax. Cardiomediastinal contours: Unremarkable Bones: Unremarkable IMPRESSION: Lines and tubes in satisfactory position. No significant interval change.
[2024-10-08 07:30] LABS: Base Excess -0.4 mmol/L (-2.0-3.0)
[2024-10-08] MEDS: VANCOMYCIN 750MG VIAL 750 MG in D5W 5% 100 ML IV SCH (09:00)
[2024-10-08 09:24] LABS: Eosinophils % (manual) 1 (0-7); Lymphocytes % (manual) 18 (10.0-50.0); Monocytes % (manual) 13 (0-12); Platelet Estimate Adequate
--- NOTE | 2024-10-08 14:36 | DVHPN2 ---
Progress Note - Dictate Date Seen: Oct 08, 2024 Has the PT tested + for MRSA If YES, has PT been informed?: Yes Medical Necessity Reason Pt with a Central, PICC or Fol: Yes The following are medically ne: PICC Line, Betancourt Catheter Reason for betancourt catheter: Strict I&O Subjective Patient was seen and evaluated in follow up in the ICU. Patient is intubated and sedated on ventilator. FiO2 40%. Patient continues to have low grade fevers. WBC 17.9. vital signs Vital Sign Date Time Temp Pulse Resp B/P (MAP) Pulse Ox O2 Delivery O2 Flow Rate FiO2 10/08/24 11:45 99.3 85 20 84/55 (65) 98 210.7 10/08/24 11:43 40 10/08/24 10:00 Mechanical Ventilator+ Total Intake and Output 10/07/24 10/07/24 10/08/24 15:00 23:00 07:00 Intake Total 740.767 ml 1208.933 ml 594.496 ml Output Total 650 ml 450 ml Balance 740.767 ml 558.933 ml 144.496 ml medications Current Medications Medications Dose Ordered Sig/Acacia Route Start Time Stop Time Status Last Admin Dose Admin Pantoprazole Sodium 40 mg DAILY IV 09/04/24 10:00 10/08/24 08:37 40 MG Sodium Chloride 10 ml QSHIFT@ IV 09/13/24 22:00 10/07/24 21:33 10 ML Albuterol 2.5 mg Q6HPRN PRN NEB 09/21/24 19:00 10/03/24 12:33 2.5 MG Ipratropium [place] 0.5 mg Q6HPRN PRN NEB 09/21/24 19:00 10/03/24 12:33 0.5 MG Midazolam HCl 50 ml @ 1 mls/hr Q24H IV 09/22/24 19:45 10/08/24 12:06 12 MLS/HR Enteral Nutritional Formula 1,000 ml 30ML/HR GT 09/23/24 12:30 10/04/24 17:37 1,000 ML Potassium Chloride/Sodium Chloride 1,000 ml @ 50 mls/hr Q20H IV 09/25/24 12:00 Cancel Acetaminophen 650 mg Q6HP PRN GT 09/30/24 11:45 10/07/24 22:10 650 MG Norepinephrine Bitartrate 250 ml @ 3.75 mls/hr Q24H IV 09/30/24 15:15 10/07/24 22:11 22.5 MLS/HR Metoclopramide HCl 10 mg TID IV 10/01/24 18:00 10/08/24 06:08 10 MG Vancomycin HCl 0 ml @ 0 mls/hr UD IV 10/04/24 12:45 Fentanyl Citrate 250 ml @ 2.5 mls/hr Q24H IV 10/04/24 15:00 10/08/24 06:20 25 MLS/HR Propofol 100 ml @ 2.979 mls/ hr Q24H IV 10/04/24 18:30 10/08/24 08:36 8.937 MLS/HR Enoxaparin Sodium 100 mg BID SC 10/05/24 22:00 Hold 10/05/24 21:43 100 MG Lactulose 30 ml Q4HR PO 10/05/24 14:00 10/07/24 21:32 30 ML Oseltamivir Phosphate 75 mg Q12H PO 10/06/24 20:00 10/11/24 19:59 10/07/24 20:58 75 MG Meropenem 50 ml @ 17 mls/hr Q8HR IV 10/07/24 22:00 10/08/24 06:08 17 MLS/HR Sennosides 17.2 mg Q12HR PO 10/07/24 22:00 Vancomycin HCl 750 mg/Dextrose 100 ml @ 100 mls/hr Q12H IV 10/08/24 09:00 10/08/24 09:00 100 MLS/HR objective GENERAL: Intubated on ventilator. Morbidly obese. LUNGS: Decreased breath sounds. CARDIOVASCULAR: Heart sounds are good. ABDOMEN: Soft. Morbid pannus limited physical palpation. SKIN: Multiple scars to abdomen. laboratory and microbiology Laboratory Tests 10/08/24 03:17 Test 10/08/24 03:17 Range/Units Serum Glucose 109 H 74-106 mg/dL Problem List Septic shock. Acute on chronic respiratory failure. NSTEMI type II secondary to above. Rule out structural heart disease. Prolonged QT interval. Morbid obesity, Class 3. Influenza B Assessment/Plan Continued all current supportive medical care. Lactulose. IV antibiotics as ordered. GI prophylactics. Vasopressors for hemodynamic support. Nebulized breathing treatments. Additional plan as per the hospital course. Critical care time of 45 minutes provided to include time spent evaluation of patient at bedside, when appropriate patient/family education for diagnosis, treatment plan, review of pertinent medical information and discussion of care with specialty providers and PCP. Mechanical ventilator parameters, treatment and adjustments have personally been reviewed by me and treatment plan by chief media officer has also been reviewed. Dietary Evaluation Review Comments: 1. Consider EN/TPN if NPO >7days 2. Continue plan of care Expected Outcomes/Goals: 1. Pt will meet >75% of estimated needs within 2-3 days Plan discussed with: Other RELL STEWART MD Oct 08, 2024 12:19
--- NOTE | 2024-10-08 15:31 | DVHPN2 ---
Progress Note Date Seen: Oct 08, 2024 Has the PT tested + for MRSA If YES, has PT been informed?: Yes Medical Necessity Reason Pt with a Central, PICC or Fol: Yes The following are medically ne: PICC Line, Betancourt Catheter Reason for betancourt catheter: Strict I&O Objective vital signs Vital Sign Date Time Temp Pulse Resp B/P (MAP) Pulse Ox O2 Delivery O2 Flow Rate FiO2 10/08/24 14:45 99.5 80 21 113/69 (84) 97 99.5 10/08/24 14:15 40 10/08/24 14:00 Mechanical Ventilator+ Total Intake and Output 10/07/24 10/07/24 10/08/24 15:00 23:00 07:00 Intake Total 740.767 ml 1208.933 ml 594.496 ml Output Total 650 ml 450 ml Balance 740.767 ml 558.933 ml 144.496 ml medications Current Medications Medications Dose Ordered Sig/Acacia Route Start Time Stop Time Status Last Admin Dose Admin Pantoprazole Sodium 40 mg DAILY IV 09/04/24 10:00 10/08/24 08:37 40 MG Sodium Chloride 10 ml QSHIFT@10,22 IV 09/13/24 22:00 10/07/24 21:33 10 ML Albuterol 2.5 mg Q6HPRN PRN NEB 09/21/24 19:00 10/03/24 12:33 2.5 MG Ipratropium [place] 0.5 mg Q6HPRN PRN NEB 09/21/24 19:00 10/03/24 12:33 0.5 MG Midazolam HCl 50 ml @ 1 mls/hr Q24H IV 09/22/24 19:45 10/08/24 12:06 12 MLS/HR Enteral Nutritional Formula 1,000 ml 30ML/HR GT 09/23/24 12:30 10/04/24 17:37 1,000 ML Potassium Chloride/Sodium Chloride 1,000 ml @ 50 mls/hr Q20H IV 09/25/24 12:00 Cancel Acetaminophen 650 mg Q6HP PRN GT 09/30/24 11:45 10/07/24 22:10 650 MG Norepinephrine Bitartrate 250 ml @ 3.75 mls/hr Q24H IV 09/30/24 15:15 10/07/24 22:11 22.5 MLS/HR Metoclopramide HCl 10 mg TID IV 10/01/24 18:00 10/08/24 14:21 10 MG Vancomycin HCl 0 ml @ 0 mls/hr UD IV 10/04/24 12:45 Fentanyl Citrate 250 ml @ 2.5 mls/hr Q24H IV 10/04/24 15:00 10/08/24 06:20 25 MLS/HR Propofol 100 ml @ 2.979 mls/ hr Q24H IV 10/04/24 18:30 10/08/24 08:36 8.937 MLS/HR Enoxaparin Sodium 100 mg BID SC 10/05/24 22:00 Hold 10/05/24 21:43 100 MG Lactulose 30 ml Q4HR PO 10/05/24 14:00 10/08/24 14:20 30 ML Oseltamivir Phosphate 75 mg Q12H PO 10/06/24 20:00 10/11/24 19:59 10/08/24 08:00 75 MG Sennosides 17.2 mg Q12HR PO 10/07/24 22:00 Vancomycin HCl 750 mg/Dextrose 100 ml @ 100 mls/hr Q12H IV 10/08/24 09:00 10/08/24 09:00 100 MLS/HR Enoxaparin Sodium 100 mg Q12HR SC 10/08/24 22:00 10/10/24 00:00 Levofloxacin/ Dextrose 100 ml @ 100 mls/hr DAILY IV 10/09/24 10:00 laboratory and microbiology Laboratory Tests 10/08/24 03:17 Test 10/08/24 03:17 Range/Units Serum Glucose 109 H 74-106 mg/dL Microbiology Date/Time Source Procedure Growth Status 10/07/24 17:31 Urine - Betancourt Port Urine Culture - Preliminary Resulted 10/06/24 14:50 Blood Blood Culture - Preliminary NO GROWTH AFTER 48 HOURS OF INCUBATION. Resulted 10/04/24 12:40 Sputum Gram Stain - Final Complete 10/04/24 12:40 Sputum Respiratory Culture - Final Complete 09/26/24 13:00 Abdomen Gram Stain - Final Complete 09/26/24 13:00 Wound Culture - Final Methicillin Resistant S.aureus Complete 09/06/24 13:00 Vaginal Vaginal Culture - Final Enterococcus faecalis Methicillin Resistant S.aureus Complete Problem List/Assessment/Plan Problem List/Assessment/Plan REMAINS INTUBATED TMAX 101 ON VASOPRESSOR SUPPORT RESP FAILURE PENDING TRACHEOSTOMY CARD EVAL ONGOING CLEARED FOR SURGERY CONSIDER TRACHEOSTOMY BASED ON ONGOING EVAL NURSE AT BEDSIDE Plan discussed with: Other Dietary Evaluation Review Comments: 1. Consider EN/TPN if NPO >7days 2. Continue plan of care Expected Outcomes/Goals: 1. Pt will meet >75% of estimated needs within 2-3 days MAZIN RUIZ MD Oct 08, 2024 15:31
--- NOTE | 2024-10-08 18:58 | DVHPN2 ---
Progress Note - Dictate Date Seen: Oct 08, 2024 Has the PT tested + for MRSA If YES, has PT been informed?: Yes Medical Necessity Reason Pt with a Central, PICC or Fol: Yes The following are medically ne: PICC Line, Betancourt Catheter Reason for betancourt catheter: Strict I&O Subjective Patient is intubated and sedated on ventilator. FiO2 40%. patient continues to have low grade fevers. WBC 17. Per Dr. Hilaria Stewart tracheostomy was cancelled today due to patient being febrile. vital signs Vital Sign Date Time Temp Pulse Resp B/P (MAP) Pulse Ox O2 Delivery O2 Flow Rate FiO2 10/08/24 18:15 99.5 97 22 127/76 (93) 95 211.1 10/08/24 18:00 Mechanical Ventilator+ 40 40 Total Intake and Output 10/07/24 10/07/24 10/08/24 15:00 23:00 07:00 Intake Total 740.767 ml 1208.933 ml 594.496 ml Output Total 650 ml 450 ml Balance 740.767 ml 558.933 ml 144.496 ml medications Current Medications Medications Dose Ordered Sig/Acacia Route Start Time Stop Time Status Last Admin Dose Admin Pantoprazole Sodium 40 mg DAILY IV 09/04/24 10:00 10/08/24 08:37 40 MG Sodium Chloride 10 ml QSHIFT@ IV 09/13/24 22:00 10/07/24 21:33 10 ML Albuterol 2.5 mg Q6HPRN PRN NEB 09/21/24 19:00 10/03/24 12:33 2.5 MG Ipratropium [place] 0.5 mg Q6HPRN PRN NEB 09/21/24 19:00 10/03/24 12:33 0.5 MG Midazolam HCl 50 ml @ 1 mls/hr Q24H IV 09/22/24 19:45 10/08/24 16:18 12 MLS/HR Enteral Nutritional Formula 1,000 ml 30ML/HR GT 09/23/24 12:30 10/04/24 17:37 1,000 ML Potassium Chloride/Sodium Chloride 1,000 ml @ 50 mls/hr Q20H IV 09/25/24 12:00 Cancel Acetaminophen 650 mg Q6HP PRN GT 09/30/24 11:45 10/07/24 22:10 650 MG Norepinephrine Bitartrate 250 ml @ 3.75 mls/hr Q24H IV 09/30/24 15:15 10/07/24 22:11 22.5 MLS/HR Metoclopramide HCl 10 mg TID IV 10/01/24 18:00 10/08/24 14:21 10 MG Vancomycin HCl 0 ml @ 0 mls/hr UD IV 10/04/24 12:45 Fentanyl Citrate 250 ml @ 2.5 mls/hr Q24H IV 10/04/24 15:00 10/08/24 16:18 25 MLS/HR Propofol 100 ml @ 2.979 mls/ hr Q24H IV 10/04/24 18:30 10/08/24 08:36 8.937 MLS/HR Enoxaparin Sodium 100 mg BID SC 10/05/24 22:00 Hold 10/05/24 21:43 100 MG Lactulose 30 ml Q4HR PO 10/05/24 14:00 10/08/24 17:33 30 ML Oseltamivir Phosphate 75 mg Q12H PO 10/06/24 20:00 10/11/24 19:59 10/08/24 08:00 75 MG Sennosides 17.2 mg Q12HR PO 10/07/24 22:00 Vancomycin HCl 750 mg/Dextrose 100 ml @ 100 mls/hr Q12H IV 10/08/24 09:00 10/08/24 09:00 100 MLS/HR Enoxaparin Sodium 100 mg Q12HR SC 10/08/24 22:00 10/10/24 00:00 Levofloxacin/ Dextrose 100 ml @ 100 mls/hr DAILY IV 10/09/24 10:00 objective General: Intubated and sedated HEENT: Atraumatic,intubated Neck: No swelling Lungs: Equal air entry and clear to auscultation Cardiovascular: S1 S2 heard no murmur Abdomen: Soft nontender, no organomegaly, nondistended Neuro: sedated, unable to assess Psych: unable to assess laboratory and microbiology Laboratory Tests 10/08/24 03:17 Test 10/08/24 03:17 Range/Units Serum Glucose 109 H 74-106 mg/dL Assessment/Plan Patient is a 63-year-old female presented to the hospital with: #Influenza B failed extubation, reintubated Staphylococcus aureus pneumonia ( MRSA) Streptococcus Pneumoniae pneumonia Septic shock resolving bacteremia : coag neg staphylococccus, possible contamination Acute Respiratory Failure [requiring mechanical ventilation] severe hypoxia Metabolic acidosis FEDE Morbidly obese BMI = 40 PE history Recommendations: Flu B +ve on 10/06. 10/07; blood cultures show no growth 10/06, blood culture showed no growth 10/06, urine culture preliminary showed no growth 10/04, sputum culture showed no growth Cont Tamiflu for 5-7 days. most recent cultures are negative hence recommend discontinuing Vancomycin and Meropenem. recurrent intubations due as she desats after extubation Reintubation again on 10/04 and before on 09/22. possible plan for trach I feel she is already received prolonged course of antibiotics for MRSA pneumonia. 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 Patient had difficult extubation in the past, 4 years ago when she was intubated for surgery as per records. Antibiotics review Cefepime 09/02- 09/06 Meropenem 09/03-09/05 n Ceftriaxone 09/07- 09/18 MEropenem 09/30- now Vancomycin 09/03- 09/11 Linezolid 09/11- 09/17 l Vancomycin from 09/27- now Pulmonary on board for vent management full code prognosis guarded crit time 35 mins spent during the encounter. Thank you for consult and for giving an opportunity to take care of this patient. Dietary Evaluation Review Comments: 1. Consider EN/TPN if NPO >7days 2. Continue plan of care Expected Outcomes/Goals: 1. Pt will meet >75% of estimated needs within 2-3 days Plan discussed with: Other ANGELLA REYES MD Oct 08, 2024 18:58
--- NOTE | 2024-10-08 19:52 | DVHPNRES ---
Progress Note Date Seen: Oct 08, 2024 Resident Creating Document: NAN AMAYA RESIDENT Has the PT tested + for MRSA If YES, has PT been informed?: Yes Medical Necessity Reason Pt with a Central, PICC or Fol: Yes The following are medically ne: PICC Line, Betancourt Catheter Reason for betancourt catheter: Strict I&O Subjective Review of Systems This is a 63-year-old female patient with PMHx of PE in 2015, multiple abdominal surgeries including hernia and bowel obstruction, lasts hernia surgery [place] [address] Anaya, right distal ureteral calculus in February 2024, AKA, rib fractures, chronic nicotine dependence in polysubstance use including methamphetamine and cannabis presented to the ER with a chief complaint of shortness of breaths. She was successfully intubated on 09/02. Per patient's daughter, patient became short of breath and febrile at 102.7 F, and therefore they had to call [facility]. Patient was saturating at 70% and therefore the patient was brought to the ER. She was intubated once before 4 years back after abdominal surgery at [facility] where she experienced difficult extubation. Patient is a nonsmoker for more than 50 years, currently smokes more than 1 pack a day. 09/05 - 2 small granulating wounds on abdomen are suture granulomas, sutures removed by surgeon 09/28 - Patient seen and examined at the bedside. Overnight patient became bradycardic, pulse was 30s, telemetry reviewed rhythm was regular, likely sinus bradycardia, sedation was turned off and the patient's pulse went up to 58 beats per minute which is her baseline. No bowel movements overnight. Patient made around 950 cc of urine. 40 mEq of potassium supplement and 2 g magnesium supplemented. Continue IV vancomycin and levofloxacin. Id on board. CPAP trial ended early as the patient became tachypneic with RR of 46/min. Raised Jevity 1.2 to 40 mL/hour. 09/29 - patient is sedated and mechanically intubated. Overnight patient made 450 mL of urine. ABG in the a.m. shows respiratory alkalosis, CO2 decreased from 38-32 and bicarb decreased from 25-22. Corrected calcium 12.3. PTH level 19. Chest x-ray shows left-sided aeration is better than as compared to when on admission. Patient underwent CPAP trial which and that as the patient became tachypneic. Discussed the option of tracheostomy with patient's daughter Toshia, she said that the family and herself does not want tracheostomy and did not think that patient would want tracheostomy. Patient's family requesting for bronchoscopy. Dr. Luis consulted for bronchoscopy per patient's family request. Bronchoscopy performed 09/29 shows Right lower lobe atelectasis due to mucous plugging. Mucous plugging from R6-R10 K 2.9, 80 mEq replenished. Mag 1.7, 2 g replenished. 09/30-patient seen and examined at bedside. 625 mL of urine overnight. 2 L of urine during the day of 09/29. No bowel movement. Lactulose started. T-max of 99.6 overnight. DC Levaquin today started meropenem. Family meeting for over 50 minutes today. Family declined tracheostomy, per daughter the patient would be very upset on tracheostomy and it would be a burden on her. CPAP trial earlier next week. 10/01 - patient seen and examined at bedside. DC Diflucan. Started Reglan IV 10 mg TID, started Colace and senna, lactulose increased to b.i.d.. Chest x-ray shows worsening pulmonary vascular congestion and bilateral effusion. Last bowel movement was on 23 September. Cumulative intake output less 4 L. ABG shows metabolic alkalosis with respiratory acidosis. Consider Diamox if patient becomes more alkalotic. 10/04 - over night T-max 99.7, pulse 110, blood pressure elevated to 181/103. Corrected calcium 13.2. Patient received 1 dose of calcitonin SC. Patient was tachypneic on BiPAP, rate in the range of 47-51. Patient was altered. Called family, per Toshia - family decided to go for tracheostomy, consult received for re-intubation. Patient reintubated at 12:10 p.m. ETT retracted 2 cm. Chest x- ray in a.m.. Surgeon consulted for tracheostomy. Planning tracheostomy on 07 October. Initiated half NS at 75 cc/hour. DC meropenem, switched to ceftriaxone and continue vancomycin. ABG showed compensated metabolic alkalosis. Last BM on . 10/05 - overnight low-grade fever 100.1 at the time of intubation, urine output 675 mL. No bowel movement. Increase lactulose to q.4. Increased dose of senna. On propofol 5, fentanyl 250, Versed 12 and Levophed4. 250 bolus of NS administered. ABG shows metabolic alkalosis with respiratory alkalosis. Respiratory rate decreased from 22-20. Corrected calcium 12.4 downtrending. 10/06 - patient is T-max 100.2 F. COVID, influenza, UA ordered. Tylenol 650 mg started. Discontinued half NS. Lasix 20 mg IV given in the a.m. urine output 500 mL post Lasix. Lasix 20 mg IV in the p.m.. NPO starting midnight. Holding Lovenox for tracheostomy. Repeat blood culture ordered. 10/07-patient is having temperature 101.1 F. tracheostomy postponed. WBC count elevated from 11-. Change Betancourt. Repeat urine culture. Started meropenem. Levophed requirement increased from 2 to 12 Repeat respiratory culture, blood culture, urine culture preliminary are negative. 10/08-overnight patient was febrile at 100.8 F. WBC increased to 17 from 12. Continuing with vancomycin. Repeat preliminary blood, urine, respiratory culture negative. DC meropenem. Started Levaquin. Corrected calcium 12.1. Started D5 half NS. Restarted Lovenox 100 mg q.12. Trach planned for Friday. Hold Lovenox starting 10/10. RR increased to 21 Objective vital signs Vital Sign Date Time Temp Pulse Resp B/P (MAP) Pulse Ox O2 Delivery O2 Flow Rate FiO2 10/08/24 18:45 99.5 98 20 107/66 (80) 93 211.1 10/08/24 18:00 Mechanical Ventilator+ 40 40 Total Intake and Output 10/07/24 10/07/24 10/08/24 15:00 23:00 07:00 Intake Total 740.767 ml 1208.933 ml 594.496 ml Output Total 650 ml 450 ml Balance 740.767 ml 558.933 ml 144.496 ml medications Current Medications Medications Dose Ordered Sig/Acacia Route Start Time Stop Time Status Last Admin Dose Admin Pantoprazole Sodium 40 mg DAILY IV 09/04/24 10:00 10/08/24 08:37 40 MG Sodium Chloride 10 ml QSHIFT@10,22 IV 09/13/24 22:00 10/07/24 21:33 10 ML Albuterol 2.5 mg Q6HPRN PRN NEB 09/21/24 19:00 10/03/24 12:33 2.5 MG Ipratropium [place] 0.5 mg Q6HPRN PRN NEB 09/21/24 19:00 10/03/24 12:33 0.5 MG Midazolam HCl 50 ml @ 1 mls/hr Q24H IV 09/22/24 19:45 10/08/24 16:18 12 MLS/HR Enteral Nutritional Formula 1,000 ml 30ML/HR GT 09/23/24 12:30 10/04/24 17:37 1,000 ML Potassium Chloride/Sodium Chloride 1,000 ml @ 50 mls/hr Q20H IV 09/25/24 12:00 Cancel Acetaminophen 650 mg Q6HP PRN GT 09/30/24 11:45 10/07/24 22:10 650 MG Norepinephrine Bitartrate 250 ml @ 3.75 mls/hr Q24H IV 09/30/24 15:15 10/07/24 22:11 22.5 MLS/HR Metoclopramide HCl 10 mg TID IV 10/01/24 18:00 10/08/24 14:21 10 MG Vancomycin HCl 0 ml @ 0 mls/hr UD IV 10/04/24 12:45 Fentanyl Citrate 250 ml @ 2.5 mls/hr Q24H IV 10/04/24 15:00 10/08/24 16:18 25 MLS/HR Propofol 100 ml @ 2.979 mls/ hr Q24H IV 10/04/24 18:30 10/08/24 08:36 8.937 MLS/HR Enoxaparin Sodium 100 mg BID SC 10/05/24 22:00 Hold 10/05/24 21:43 100 MG Lactulose 30 ml Q4HR PO 10/05/24 14:00 10/08/24 17:33 30 ML Oseltamivir Phosphate 75 mg Q12H PO 10/06/24 20:00 10/11/24 19:59 10/08/24 08:00 75 MG Sennosides 17.2 mg Q12HR PO 10/07/24 22:00 Vancomycin HCl 750 mg/Dextrose 100 ml @ 100 mls/hr Q12H IV 10/08/24 09:00 10/08/24 09:00 100 MLS/HR Enoxaparin Sodium 100 mg Q12HR SC 10/08/24 22:00 10/10/24 00:00 Levofloxacin/ Dextrose 100 ml @ 100 mls/hr DAILY IV 10/09/24 10:00 Examination Obese female patient lying in bed, in no acute distress RASS -5 General: Morbidly obese, afebrile, palor, mucosae are moist, dilated and sluggish light reflex Cardiovascular: Tachycardic but Regular S1 and S2. No murmurs, gallops or rubs. No JVD elevation. Lower and upper extremity 1+ edema noticed. Respiratory: Right-sided crepitations heard, saturating 92% on FiO2 of 40%. Abdomen: Abdomen is soft, normal bowel sounds, multiple ventral hernia seen, right-sided dressing removed, no drainage noticed. Stage II decubitus ulcer seen with overlying erythema but no drainage noticed. Midline scar seen. Genitourinary: Betancourt catheter seen MSK/skin: Skin is dry and warm Neurological: Pupils are isocoric and reactive. laboratory and microbiology Laboratory Tests 10/08/24 03:17 Test 10/08/24 03:17 Range/Units Serum Glucose 109 H 74-106 mg/dL Microbiology Date/Time Source Procedure Growth Status 10/07/24 17:31 Urine - Betancourt [place] Urine Culture - Preliminary Resulted 10/06/24 14:50 Blood Blood Culture - Preliminary NO GROWTH AFTER 48 HOURS OF INCUBATION. Resulted 10/04/24 12:40 Sputum Gram Stain - Final Complete 10/04/24 12:40 Sputum Respiratory Culture - Final Complete 09/26/24 13:00 Abdomen Gram Stain - Final Complete 09/26/24 13:00 Wound Culture - Final Methicillin Resistant S.aureus Complete 09/06/24 13:00 Vaginal Vaginal Culture - Final Enterococcus faecalis Methicillin Resistant S.aureus Complete Labs and/or images reviewed: Labs reviewed by me, Image(s) reviewed by me Problem List/Assessment/Plan Problem List/Assessment/Plan NEUROLOGY Acute metabolic encephalopathy likely due to septic shock - patient is sedated and mechanically ventilated, RASS -2 CARDIOVASCULAR Septic shock NSTEMI likely type 2 secondary to septic shock Probable right ventricular failure Prolonged QTC-resolved - cardiology recommended conservative management - echocardiogram shows dyskinesis of IVC, dilated RV and dilated RA. RV failure. Mild LVH and mild LV diastolic dysfunction with EF 65 % - blood culture 09/02 showed Staph hominis sensitive to vancomycin - repeat blood culture 09/11 showed Staphylococcus epidermidis sensitive to Cipro, clinda, linezolid, vancomycin - repeat blood culture 09/24 shows no growth - repeat blood culture 10/06 shows no growth - discontinued furosemide 40 mg IV daily starting 09/27 till 10/04 - Lasix 20 mg b.i.d. given 10/06 RESPIRATORY Acute hypoxic respiratory failure secondary to probable community-acquired pneumonia due to MRSA and S pneumo Advanced COPD Chronic nicotine dependence Influenza B infection - patient was intubated and mechanically ventilated starting 09/02 - bronchoscopy completed 09/07, results showed MRSA positive - repeat bronchoscopy 09/08, showed comparatively lesser secretions - sputum culture 09/02 showed MRSA, strep pneumo - bronchial wash specimen collected 09/07 showed MRSA - repeat respiratory culture 09/22 showed MRSA and presumtive Juju albicans - received cefepime from 09/02 to 09/06 - received meropenem 11/03 to 09/05, - received vancomycin from 09/03 to 09/11 - received ceftriaxone 2 g daily from 09/13 to 09/19 - received linezolid from 09/11 to 09/17 - continue albuterol and ipratropium q.6 hour p.r.n. - ongoing antibiotics: vancomycin 09/27 and ceftriaxone starting 10/04, Started Levaquin 10/08. started oseltamivir 75 mg q.12 10/06 - discontinued IV meropenem started from 09/30 till 10/04 - discontinued Diflucan-patient received from 09/27 till 10/01 - discontinued Levaquin 09/30 - 09/28 and 09/29 CPAP trial ended early as the patient became tachypneic with RR of 46/min. - 10/04- patient tachypneic on BiPAP, reintubated per family's request. Family considering tracheostomy. Consent signed. Surgeon consulted for tracheostomy - Dr. Luis consulted for bronchoscopy. Bronchoscopy performed 09/29 shows mucus plugs in the left upper lobe. - respiratory culture preliminary shows no organism. GI History of multiple surgeries secondary to hernia and bowel obstruction Multiple ventral wall hernias Possible bowel obstruction Transaminitis secondary to septic shock Rhabdomyolysis likely secondary to immobilization Surgeon consulted-recommended conservative management, small varices could not be performed at this moment due to respiratory status of the patient Continue IV pantoprazole 40 mg daily Continue senna b.i.d. Lactulose increased to q.4 10/05 /KIDNEY FEDE, likely secondary to VMN - resolved Probable pelvic inflammatory disease Hyponatremia-resolved Hypomagnesemia Hypercalcemia -corrected calcium 12.1, started D5 half NS 10/08 - creatinine downtrending - creatinine kinase downtrended from 8215 to 77 - nephrology consulted, last hemodialysis session was performed on 09/10 - urine bacterial culture 09/02 showed less than 32276 CFU of coagulase-negative Staphylococcus - vaginal culture 09/06 showed coagulase-negative Staphylococcus, Enterococcus faecalis, MRSA sensitive to daptomycin, linezolid, vancomycin, TMP SMX - patient had purulent vaginal discharge - 40 mEq potassium and 2 g of magnesium administered 09/28 - monitor calcium, received 1 dose of calcitonin on 10/04. Discontinued half NS 10/06 - repeat urine culture 10/07 shows no growth preliminary ENDO Hypertriglyceridemia, TG 623 09/04, 320 at 09/15 Likely due to propofol, discontinued propofol Obesity - Continue Atorvastatin 40 mg ID Polysubstance use - Infectious disease consulted, continue management as above - Per patient's daughter, patient uses amphetamine, marijuana, smokes cigarettes - HIV testing negative - Hepatitis panel negative Hematology Lower extremity DVT - Ultrasound Doppler of lower extremities 08/15 shows nonocclusive DVT of the left popliteal vein - hold Lovenox 100 mg b.i.d. - discontinue Lovenox prior to tracheostomy LINES ETT, intubated on 09/02/2024, reintubated 10/04 IV access Left upper arm PICC line, placed on 09/13 Betancourt changed 10/07 Drips: Versed 12 Propofol 15 Levophed 6 Fentanyl 250 Nutrition Jevity 40 mL/hour Goals of care/advance care planning; FULL CODE; discussed on for 24 minutes. PUD prophylaxis; hold therapeutic Lovenox DVT prophylaxis; pantoprazole 40 mg IV daily Case discussed with Dr. Pinon. Tracheostomy likely on 10/11. Hold Lovenox starting 10/10. DC meropenem. Started IV Levaquin. Plan discussed with the patient's daughter over the bedside for more than 50 minutes, code status full code Critical care time including review of chart, discussion with the family, excluding procedures: 57 minutes Plan discussed with: Patient My Orders My Orders Orders - NAN AMAYA RESIDENT Procedure Category Date Status Time Senna Pod Tablet PHA 10/07/24 In Process (Senokot Tablet) 22:00 Chest Xray 1 View XY 10/08/24 Resulted 04:00 Abg W/ Co-Ox RT 10/08/24 Logged 06:00 Vancomycin 750mg Vial PHA 10/08/24 In Process (Vancomycin Hcl) 09:00 Vancomycin,Trough LAB 10/09/24 Verified 20:00 Vancomycin Per SIMRAN 10/08/24 In Process Pharmacy Protoc 08:43 Basic Metabolic Panel LAB 10/09/24 Verified 04:00 Ventilator Setup RT 10/08/24 Logged 11:16 Enoxaparin Sodium PHA 10/08/24 In Process (Lovenox) 22:00 Ventilator Orders RT 10/08/24 Transmitted 17:30 Dietary Evaluation Review Comments: 1. Consider EN/TPN if NPO >7days 2. Continue plan of care Expected Outcomes/Goals: 1. Pt will meet >75% of estimated needs within 2-3 days Date of Service: Oct 08, 2024 Billing Provider: DANE PINON MD Common Visit Codes: 25597-[id number] CARE 30-74 MIN NAN AMAYA RESIDENT Oct 08, 2024 19:51 DANE PINON MD Oct 10, 2024 12:37
[2024-10-08] MEDS: D5W/SOD CHL 0.45% 1,000 ML IV SCH (20:31)
[2024-10-08] MEDS: ENOXAPARIN SOD 100 MG/1 ML SYRINGE SC SCH (22:25)
[2024-10-09] VITALS (109 sets, daily range): BP systolic 84–118; BP diastolic 49–70; PULSE 69–83; RESP 12–22; TEMP 97.8–99.1; O2SAT 91–100
[2024-10-09 03:53] LABS: Basophils # (auto) 0.1 10 ^3/uL (0-0.2); Basophils % (auto) 0.9 % (0.0-2.0); Eosinophils # (auto) 0.3 10 ^3/uL (0-0.8); Eosinophils % (auto) 2.4 % (0.0-7.0); Hematocrit 33.3 % (36.0-46.0); Hemoglobin 10.8 g/dL (12.2-16.2); Lymphocytes # (auto) 1.3 10 ^3/uL (0.4-5.4); Lymphocytes % (auto) 11.1 % (10.0-50.0); Mean Corpuscular Hemoglobin 29.3 pg (28.0-32.0); Mean Corpuscular Hgb Conc. 32.5 g/dL (32.0-36.0); Mean Corpuscular Volume 90.1 fL (80.0-100.0); Monocytes # (auto) 1.6 10 ^3/uL (0-1.3); Monocytes % (auto) 13.9 % (0.0-12.0); Neutrophils # (auto) 8.5 10 ^3/uL (1.6-8.6); Neutrophils % (auto) 71.7 % (37.0-80.0); Nucleated Red Blood Cells % 0.3 %; Platelet Count (auto) 332 10^3/uL (140-450); Red Cell Distribution Width 14.5 % (11.8-14.3); White Blood Cell 11.8 10^3/uL (4.4-10.8)
[2024-10-09 04:03] LABS: Alkaline Phosphatase 101 U/L (46-116); Anion Gap 6 (5-15); Aspartate Aminotransferase 22 U/L (13-40); Carbon Dioxide 26 mmol/L (20-31); Glucose 104 mg/dL (74-106); Magnesium 1.8 mg/dL (1.6-2.6); Potassium 3.7 mmol/L (3.5-5.1); Sodium 141 mmol/L (136-145)
[2024-10-09 04:04] LABS: Bilirubin, Total 0.3 mg/dL (0.2-1.0)
[2024-10-09 04:07] LABS: Albumin 2.9 g/dL (3.2-4.8); Blood Urea Nitrogen 7 mg/dL (9-23); Calcium 11.3 mg/dL (8.7-10.4); Chloride 109 mmol/L (98-107); Total Protein 5.4 g/dL (5.7-8.2)
[2024-10-09 04:51] LABS: Alanine Aminotransferase 23 U/L (7-40)
--- NOTE | 2024-10-09 05:24 | DVH ---
CHEST RADIOGRAPH Indication: Follow up Technique: Single frontal view of the chest was obtained COMPARISON: XY CHEST XRAY 1 VIEW on DOS: 10/08/24, XY CHEST PORTABLE on DOS: 10/07/24, XY CHEST ERIC BLE on DOS: 10/06/24, XY CHEST PORTABLE on DOS: 10/05/24, XY CHEST PORTABLE on DOS: 10/04/24, XY CHES T XRAY 1 VIEW on DOS: 10/08/24 FINDINGS: Lines and Tubes: Endotracheal tube and enteric catheter in satisfactory position. Lungs: Bilateral lower lobe airspace disease. Low lung volumes. Pleura: No effusion. No pneumothorax. Cardiomediastinal contours: Unremarkable Bones: Unremarkable IMPRESSION: Lines and tubes in satisfactory position. No significant interval change.
[2024-10-09] MEDS: levoFLOXacin 500MG 100 ML IV SCH (11:45)
--- NOTE | 2024-10-09 13:13 | DVHPN2 ---
Subjective Patient was seen and examined at bedside, patient was on 40% FiO2 peep 5 On Levophed for tracheostomy on Friday. Reviewed: Care Plan, H&P, Labs, Medications, Previous Orders, Radiology, Other (Consultants) Changes from previous H/P or p: No Changes Objective Vitals Vital Signs Date Time Temp Pulse Resp B/P (MAP) Pulse Ox O2 Delivery O2 Flow Rate FiO2 10/09/24 12:25 71 21 94/56 (69) 95 40 10/09/24 12:00 98.4 98.4 10/09/24 12:00 Mechanical Ventilator+ Intake/Output Intake and Output 10/09/24 07:00 Intake Total 2311.801 ml Output Total 2550 ml Balance -238.199 ml Intake Oral 20 ml IV Total 2261.801 ml Tube Feeding 30 ml Output Urine Total 2550 ml # Bowel Movements 1 Exam Obese female patient lying in bed, in no acute distress General: Morbidly obese, afebrile, palor, mucosae are moist, dilated and sluggish light reflex Cardiovascular: Regular S1 and S2. No murmurs, gallops or rubs. No JVD elevation. Lower and upper extremity 1+ edema noticed. Respiratory: Right-sided crepitations heard, saturating 92% on FiO2 of 40%. Abdomen: Abdomen is soft, normal bowel sounds, multiple ventral hernia seen, right-sided dressing removed, no drainage noticed. Stage II decubitus ulcer seen with overlying erythema but no drainage noticed. Midline scar seen. Genitourinary: Vasquez catheter seen MSK/skin: Skin is dry and warm Neurological: Pupils are isocoric and reactive. General Appearance: Other (Sedated and intubated) Medications Current Medications Medications Dose Ordered Sig/[place]acia Route Start Time Stop Time Status Last Admin Dose Admin Pantoprazole Sodium 40 mg DAILY IV 09/04/24 10:00 10/09/24 08:47 40 MG Sodium Chloride 10 ml QSHIFT@ IV 09/13/24 22:00 10/09/24 08:47 10 ML Albuterol 2.5 mg Q6HPRN PRN NEB 09/21/24 19:00 10/03/24 12:33 2.5 MG Ipratropium [place] 0.5 mg Q6HPRN PRN NEB 09/21/24 19:00 10/03/24 12:33 0.5 MG Midazolam HCl 50 ml @ 1 mls/hr Q24H IV 09/22/24 19:45 10/09/24 10:00 12 MLS/HR Enteral Nutritional Formula 1,000 ml 30ML/HR GT 09/23/24 12:30 10/04/24 17:37 1,000 ML Potassium Chloride/Sodium Chloride 1,000 ml @ 50 mls/hr Q20H IV 09/25/24 12:00 Cancel Acetaminophen 650 mg Q6HP PRN GT 09/30/24 11:45 10/07/24 22:10 650 MG Norepinephrine Bitartrate 250 ml @ 3.75 mls/hr Q24H IV 09/30/24 15:15 10/09/24 06:02 7.5 MLS/HR Metoclopramide HCl 10 mg TID IV 10/01/24 18:00 10/09/24 06:01 10 MG Vancomycin HCl 0 ml @ 0 mls/hr UD IV 10/04/24 12:45 Fentanyl Citrate 250 ml @ 2.5 mls/hr Q24H IV 10/04/24 15:00 10/09/24 11:44 25 MLS/HR Propofol 100 ml @ 2.979 mls/ hr Q24H IV 10/04/24 18:30 10/09/24 11:42 8.937 MLS/HR Lactulose 30 ml Q4HR PO 10/05/24 14:00 10/09/24 08:46 30 ML Oseltamivir Phosphate 75 mg Q12H PO 10/06/24 20:00 10/11/24 19:59 10/09/24 08:39 75 MG Sennosides 17.2 mg Q12HR PO 10/07/24 22:00 Vancomycin HCl 750 mg/Dextrose 100 ml @ 100 mls/hr Q12H IV 10/08/24 09:00 10/09/24 08:40 100 MLS/HR Enoxaparin Sodium 100 mg Q12HR SC 10/08/24 22:00 10/10/24 00:00 10/09/24 08:48 100 MG Levofloxacin/ Dextrose 100 ml @ 100 mls/hr DAILY IV 10/09/24 10:00 Dextrose/Sodium Chloride 1,000 ml @ 75 mls/hr [id number] IV 10/08/24 20:00 10/09/24 10:00 75 MLS/HR Levofloxacin/ Dextrose 150 ml @ 100 mls/hr DAILY IV 10/10/24 10:00 UNV Laboratory Results Laboratory Tests 10/09/24 03:15 Chemistry Test 10/09/24 03:15 Albumin 2.9 g/dL (3.2-4.8) L Calcium Level 11.3 mg/dL (8.7-10.4) H Magnesium Level 1.8 mg/dL (1.6-2.6) Total Protein 5.4 g/dL (5.7-8.2) L LFT Test 10/09/24 03:15 Alanine Aminotransferase (ALT) 23 U/L (7-40) Alkaline Phosphatase 101 U/L (46-116) Aspartate Amino Transferase (AST) 22 U/L (13-40) Total Bilirubin 0.3 mg/dL (0.2-1.0) Urinalysis Test 09/04/24 14:26 09/23/24 09:25 10/06/24 14:11 Urine Amorphous Crystals Few /hpf (None Seen) Urine Total Protein 253.7 mg/dL (1-14) H Urine Yeast (Budding) Moderate /hpf (None Seen) Urine Creatinine 24.25 mg/dL (30.0-125.0) L Urine Sodium 109 mmol/L (40-220) Urine Color Colorless (Yellow) Urine Clarity Turbid (Clear) H Urine pH 5.0 (5.0-9.0) Urine Specific [place] 1.006 (1.001-1.035) Urine Protein Negative (Negative) Urine Ketones Negative (Negative) Urine Blood Trace /uL (Negative) H Urine Nitrite Negative (Negative) Urine Bilirubin Negative (Negative) Urine Urobilinogen Normal mg/dL (Negative) Urine Leukocyte Esterase 2+ /uL (Negative) Urine RBC 25 /hpf (0 - 4) Urine WBC 73 /hpf (0 - 5) Urine Squamous Epithelial Cells Few /hpf (<5) Urine Bacteria Few /hpf (None Seen) H Urine Hyaline Casts Few /lpf (0 - 2) Urine Mucus Few (None Seen) Urine Glucose Normal mg/dL (Normal) Blood Gas Results Test 10/09/24 07:17 Arterial Blood pH 7.460 (7.350-7.450) FiO2 % 40.0 Microbiology Microbiology Date/Time Source Procedure Growth Status 10/07/24 17:31 Urine - [place] Urine Culture - Preliminary Resulted 10/06/24 14:50 Blood Blood Culture - Preliminary NO GROWTH AFTER 48 HOURS OF INCUBATION. Resulted 10/04/24 12:40 Sputum Gram Stain - Final Complete 10/04/24 12:40 Sputum Respiratory Culture - Final Complete 09/26/24 13:00 Abdomen Gram Stain - Final Complete 09/26/24 13:00 Wound Culture - Final Methicillin Resistant S.aureus Complete 09/06/24 13:00 Vaginal Vaginal Culture - Final Enterococcus faecalis Methicillin Resistant S.aureus Complete Assessment/Plan Assessment/Plan Acute metabolic encephalopathy likely due to septic shock- Cont Abx, Vasopressors Septic shock NSTEMI likely type 2 secondary to septic shock Probable right ventricular failure Prolonged QTC-resolved Acute hypoxic respiratory failure secondary to probable community-acquired pneumonia due to MRSA and S pneumo- Trach on Friday Advanced COPD Chronic nicotine dependence Influenza B infection critical care time 45 mins Plan discussed with: Other (rn) My Orders Orders - XI ARORA MD Procedure Category Date Status Time Levofloxacin 750mg PHA 10/10/24 Logged (Levaquin) 10:00 Date of Service: Oct 09, 2024 Billing Provider: XI ARORA MD Common Visit Codes: [id number] CARE 30-74 MIN XI ARORA MD Oct 09, 2024 13:13
--- NOTE | 2024-10-09 14:52 | DVHPN2 ---
Progress Note Date Seen: Oct 09, 2024 Has the PT tested + for MRSA If YES, has PT been informed?: Yes Medical Necessity Reason Pt with a Central, PICC or Fol: Yes The following are medically ne: PICC Line, Betancourt Catheter Reason for betancourt catheter: Strict I&O Objective vital signs Vital Sign Date Time Temp Pulse Resp B/P (MAP) Pulse Ox O2 Delivery O2 Flow Rate FiO2 10/09/24 14:30 71 21 98/58 (71) 95 10/09/24 14:00 Mechanical Ventilator+ 40 40 10/09/24 12:00 98.4 98.4 Total Intake and Output 10/08/24 10/08/24 10/09/24 15:00 23:00 07:00 Intake Total 524.246 ml 741.246 ml 1046.309 ml Output Total 2100 ml 450 ml Balance 524.246 ml -1358.754 ml 596.309 ml medications Current Medications Medications Dose Ordered Sig/[place]acia Route Start Time Stop Time Status Last Admin Dose Admin Pantoprazole Sodium 40 mg DAILY IV 09/04/24 10:00 10/09/24 08:47 40 MG Sodium Chloride 10 ml QSHIFT@10,22 IV 09/13/24 22:00 10/09/24 08:47 10 ML Albuterol 2.5 mg Q6HPRN PRN NEB 09/21/24 19:00 10/03/24 12:33 2.5 MG Ipratropium [place] 0.5 mg Q6HPRN PRN NEB 09/21/24 19:00 10/03/24 12:33 0.5 MG Midazolam HCl 50 ml @ 1 mls/hr Q24H IV 09/22/24 19:45 10/09/24 10:00 12 MLS/HR Enteral Nutritional Formula 1,000 ml 30ML/HR GT 09/23/24 12:30 10/04/24 17:37 1,000 ML Potassium Chloride/Sodium Chloride 1,000 ml @ 50 mls/hr Q20H IV 09/25/24 12:00 Cancel Acetaminophen 650 mg Q6HP PRN GT 09/30/24 11:45 10/07/24 22:10 650 MG Norepinephrine Bitartrate 250 ml @ 3.75 mls/hr Q24H IV 09/30/24 15:15 10/09/24 06:02 7.5 MLS/HR Metoclopramide HCl 10 mg TID IV 10/01/24 18:00 10/09/24 13:26 10 MG Vancomycin HCl 0 ml @ 0 mls/hr UD IV 10/04/24 12:45 Fentanyl Citrate 250 ml @ 2.5 mls/hr Q24H IV 10/04/24 15:00 10/09/24 11:44 25 MLS/HR Propofol 100 ml @ 2.979 mls/ hr Q24H IV 10/04/24 18:30 10/09/24 11:42 8.937 MLS/HR Lactulose 30 ml Q4HR PO 10/05/24 14:00 10/09/24 13:26 30 ML Oseltamivir Phosphate 75 mg Q12H PO 10/06/24 20:00 10/11/24 19:59 10/09/24 08:39 75 MG Sennosides 17.2 mg Q12HR PO 10/07/24 22:00 Vancomycin HCl 750 mg/Dextrose 100 ml @ 100 mls/hr Q12H IV 10/08/24 09:00 10/09/24 08:40 100 MLS/HR Enoxaparin Sodium 100 mg Q12HR SC 10/08/24 22:00 10/10/24 00:00 10/09/24 08:48 100 MG Dextrose/Sodium Chloride 1,000 ml @ 75 mls/hr [id number] IV 10/08/24 20:00 10/09/24 10:00 75 MLS/HR Levofloxacin/ Dextrose 150 ml @ 100 mls/hr DAILY IV 10/10/24 10:00 laboratory and microbiology Laboratory Tests 10/09/24 03:15 Test 10/09/24 03:15 Range/Units Serum Glucose 104 74-106 mg/dL Microbiology Date/Time Source Procedure Growth Status 10/07/24 17:31 Urine - [place] Urine Culture - Preliminary Resulted 10/06/24 14:50 Blood Blood Culture - Preliminary NO GROWTH AFTER 48 HOURS OF INCUBATION. Resulted 10/04/24 12:40 Sputum Gram Stain - Final Complete 10/04/24 12:40 Sputum Respiratory Culture - Final Complete 09/26/24 13:00 Abdomen Gram Stain - Final Complete 09/26/24 13:00 Wound Culture - Final Methicillin Resistant S.aureus Complete 09/06/24 13:00 Vaginal Vaginal Culture - Final Enterococcus faecalis Methicillin Resistant S.aureus Complete Problem List/Assessment/Plan Problem List/Assessment/Plan REMAINS INTUBATED AFEBRILE ON VASOPRESSOR SUPPORT RESP FAILURE PENDING TRACHEOSTOMY CARD EVAL ONGOING CLEARED FOR SURGERY CONSIDER TRACHEOSTOMY BASED ON ONGOING EVAL NURSE AT BEDSIDE Plan discussed with: Other Dietary Evaluation Review Comments: 1. Consider EN/TPN if NPO >7days 2. Continue plan of care Expected Outcomes/Goals: 1. Pt will meet >75% of estimated needs within 2-3 days MAZIN RUIZ MD Oct 09, 2024 14:51
--- NOTE | 2024-10-09 16:41 | DVHPN2 ---
Progress Note - Dictate Date Seen: Oct 09, 2024 Has the PT tested + for MRSA If YES, has PT been informed?: Yes Medical Necessity Reason Pt with a Central, PICC or Fol: Yes The following are medically ne: PICC Line, Betancourt Catheter Reason for betancourt catheter: Strict I&O Subjective Patient was seen and evaluated in follow up in the ICU. Patient is intubated and sedated on ventilator. FiO2 40%. Patient is now afebrile. Per RN, the patient had green output from NGT. Patient is planned for tracheostomy on Thursday 10/11. WBC 11.8, HCT 33.3, CL 109. vital signs Vital Sign Date Time Temp Pulse Resp B/P (MAP) Pulse Ox O2 Delivery O2 Flow Rate FiO2 10/09/24 13:59 69 21 97/57 (70) 95 40 10/09/24 12:00 98.4 98.4 10/09/24 12:00 Mechanical Ventilator+ Total Intake and Output 10/08/24 10/08/24 10/09/24 15:00 23:00 07:00 Intake Total 524.246 ml 741.246 ml 1046.309 ml Output Total 2100 ml 450 ml Balance 524.246 ml -1358.754 ml 596.309 ml medications Current Medications Medications Dose Ordered Sig/[place] Route Start Time Stop Time Status Last Admin Dose Admin Pantoprazole Sodium 40 mg DAILY IV 09/04/24 10:00 10/09/24 08:47 40 MG Sodium Chloride 10 ml QSHIFT@10,22 IV 09/13/24 22:00 10/09/24 08:47 10 ML Albuterol 2.5 mg Q6HPRN PRN NEB 09/21/24 19:00 10/03/24 12:33 2.5 MG Ipratropium [place] 0.5 mg Q6HPRN PRN NEB 09/21/24 19:00 10/03/24 12:33 0.5 MG Midazolam HCl 50 ml @ 1 mls/hr Q24H IV 09/22/24 19:45 10/09/24 10:00 12 MLS/HR Enteral Nutritional Formula 1,000 ml 30ML/HR GT 09/23/24 12:30 10/04/24 17:37 1,000 ML Potassium Chloride/Sodium Chloride 1,000 ml @ 50 mls/hr Q20H IV 09/25/24 12:00 Cancel Acetaminophen 650 mg Q6HP PRN GT 09/30/24 11:45 10/07/24 22:10 650 MG Norepinephrine Bitartrate 250 ml @ 3.75 mls/hr Q24H IV 09/30/24 15:15 10/09/24 06:02 7.5 MLS/HR Metoclopramide HCl 10 mg TID IV 10/01/24 18:00 10/09/24 13:26 10 MG Vancomycin HCl 0 ml @ 0 mls/hr UD IV 10/04/24 12:45 Fentanyl Citrate 250 ml @ 2.5 mls/hr Q24H IV 10/04/24 15:00 10/09/24 11:44 25 MLS/HR Propofol 100 ml @ 2.979 mls/ hr Q24H IV 10/04/24 18:30 10/09/24 11:42 8.937 MLS/HR Lactulose 30 ml Q4HR PO 10/05/24 14:00 10/09/24 13:26 30 ML Oseltamivir Phosphate 75 mg Q12H PO 10/06/24 20:00 10/11/24 19:59 10/09/24 08:39 75 MG Sennosides 17.2 mg Q12HR PO 10/07/24 22:00 Vancomycin HCl 750 mg/Dextrose 100 ml @ 100 mls/hr Q12H IV 10/08/24 09:00 10/09/24 08:40 100 MLS/HR Enoxaparin Sodium 100 mg Q12HR SC 10/08/24 22:00 10/10/24 00:00 10/09/24 08:48 100 MG Levofloxacin/ Dextrose 100 ml @ 100 mls/hr DAILY IV 10/09/24 10:00 Dextrose/Sodium Chloride 1,000 ml @ 75 mls/hr [id number] IV 10/08/24 20:00 10/09/24 10:00 75 MLS/HR Levofloxacin/ Dextrose 150 ml @ 100 mls/hr DAILY IV 10/10/24 10:00 objective GENERAL: Intubated on ventilator. Morbidly obese. LUNGS: Decreased breath sounds. CARDIOVASCULAR: Heart sounds are good. ABDOMEN: Soft. Morbid pannus limited physical palpation. SKIN: Multiple scars to abdomen. laboratory and microbiology Laboratory Tests 10/09/24 03:15 Test 10/09/24 03:15 Range/Units Serum Glucose 104 74-106 mg/dL Problem List Septic shock. Acute on chronic respiratory failure. NSTEMI type II secondary to above. Rule out structural heart disease. Prolonged QT interval. Morbid obesity, Class 3. Influenza B Assessment/Plan Continued all current supportive medical care. Lactulose. IV antibiotics as ordered. GI prophylactics. Vasopressors for hemodynamic support. Nebulized breathing treatments. Additional plan as per the hospital course. Critical care time of 45 minutes provided to include time spent evaluation of patient at bedside, when appropriate patient/family education for diagnosis, treatment plan, review of pertinent medical information and discussion of care with specialty providers and PCP. Mechanical ventilator parameters, treatment and adjustments have personally been reviewed by me and treatment plan by brake operator helper has also been reviewed. Dietary Evaluation Review Comments: 1. Consider EN/TPN if NPO >7days 2. Continue plan of care Expected Outcomes/Goals: 1. Pt will meet >75% of estimated needs within 2-3 days Plan discussed with: Other RELL STEWART MD Oct 09, 2024 14:09
--- NOTE | 2024-10-09 19:37 | DVHPN2 ---
Progress Note - Dictate Date Seen: Oct 09, 2024 Has the PT tested + for MRSA If YES, has PT been informed?: Yes Medical Necessity Reason Pt with a Central, PICC or Fol: Yes The following are medically ne: PICC Line, Betancourt Catheter Reason for betancourt catheter: Strict I&O Subjective Patient is intubated and sedated on ventilator. FiO2 40%. Patient is afebrile Patient had green output from NGT. Patient is planned for tracheostomy on Thursday 10/11. WBC 11.8, HCT 33.3, CL 109. on Vasopressor suppport. vital signs Vital Sign Date Time Temp Pulse Resp B/P (MAP) Pulse Ox O2 Delivery O2 Flow Rate FiO2 10/09/24 18:45 71 21 103/57 (72) 94 10/09/24 18:41 40 10/09/24 18:41 Mechanical Ventilator+ 10/09/24 16:00 98.6 98.6 Total Intake and Output 10/08/24 10/08/24 10/09/24 15:00 23:00 07:00 Intake Total 524.246 ml 741.246 ml 1046.309 ml Output Total 2100 ml 450 ml Balance 524.246 ml -1358.754 ml 596.309 ml medications Current Medications Medications Dose Ordered Sig/[place] Route Start Time Stop Time Status Last Admin Dose Admin Pantoprazole Sodium 40 mg DAILY IV 09/04/24 10:00 10/09/24 08:47 40 MG Sodium Chloride 10 ml QSHIFT@10,22 IV 09/13/24 22:00 10/09/24 08:47 10 ML Albuterol 2.5 mg Q6HPRN PRN NEB 09/21/24 19:00 10/09/24 18:40 2.5 MG Ipratropium [place] 0.5 mg Q6HPRN PRN NEB 09/21/24 19:00 10/09/24 18:40 0.5 MG Midazolam HCl 50 ml @ 1 mls/hr Q24H IV 09/22/24 19:45 10/09/24 14:59 12 MLS/HR Enteral Nutritional Formula 1,000 ml 30ML/HR GT 09/23/24 12:30 10/04/24 17:37 1,000 ML Potassium Chloride/Sodium Chloride 1,000 ml @ 50 mls/hr Q20H IV 09/25/24 12:00 Cancel Acetaminophen 650 mg Q6HP PRN GT 09/30/24 11:45 10/07/24 22:10 650 MG Norepinephrine Bitartrate 250 ml @ 3.75 mls/hr Q24H IV 09/30/24 15:15 10/09/24 06:02 7.5 MLS/HR Metoclopramide HCl 10 mg TID IV 10/01/24 18:00 10/09/24 13:26 10 MG Vancomycin HCl 0 ml @ 0 mls/hr UD IV 10/04/24 12:45 Fentanyl Citrate 250 ml @ 2.5 mls/hr Q24H IV 10/04/24 15:00 10/09/24 11:44 25 MLS/HR Propofol 100 ml @ 2.979 mls/ hr Q24H IV 10/04/24 18:30 10/09/24 11:42 8.937 MLS/HR Lactulose 30 ml Q4HR PO 10/05/24 14:00 10/09/24 17:01 30 ML Oseltamivir Phosphate 75 mg Q12H PO 10/06/24 20:00 10/11/24 19:59 10/09/24 08:39 75 MG Sennosides 17.2 mg Q12HR PO 10/07/24 22:00 Vancomycin HCl 750 mg/Dextrose 100 ml @ 100 mls/hr Q12H IV 10/08/24 09:00 10/09/24 08:40 100 MLS/HR Enoxaparin Sodium 100 mg Q12HR SC 10/08/24 22:00 10/10/24 00:00 10/09/24 08:48 100 MG Dextrose/Sodium Chloride 1,000 ml @ 75 mls/hr [id number] IV 10/08/24 20:00 10/09/24 10:00 75 MLS/HR Levofloxacin/ Dextrose 150 ml @ 100 mls/hr DAILY IV 10/10/24 10:00 objective General: Intubated and sedated HEENT: Atraumatic,intubated Neck: No swelling Lungs: Equal air entry and clear to auscultation Cardiovascular: S1 S2 heard no murmur Abdomen: Soft nontender, no organomegaly, nondistended Neuro: sedated, unable to assess Psych: unable to assess laboratory and microbiology Laboratory Tests 10/09/24 03:15 Test 10/09/24 03:15 Range/Units Serum Glucose 104 74-106 mg/dL Assessment/Plan Patient is a 63-year-old female presented to the hospital with: #Influenza B failed extubation, reintubated Staphylococcus aureus pneumonia ( MRSA) Streptococcus Pneumoniae pneumonia Septic shock resolving bacteremia : coag neg staphylococccus, possible contamination Acute Respiratory Failure [requiring mechanical ventilation] severe hypoxia Metabolic acidosis FEDE Morbidly obese BMI = 40 PE history Recommendations: Flu B +ve on 10/06. 10/07; blood cultures show no growth 10/06, blood culture showed no growth 10/06, urine culture preliminary showed no growth 10/04, sputum culture showed no growth Cont Tamiflu for 5-7 days. most recent cultures are negative hence recommend discontinuing Vancomycin and Meropenem. recurrent intubations due as she desats after extubation Reintubation again on 10/04 and before on 09/22. Trach procedure on Friday I feel she is already received prolonged course of antibiotics for MRSA pneumonia. 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 Patient had difficult extubation in the past, 4 years ago when she was intubated for surgery as per records. Antibiotics review Cefepime 09/02- 09/06 Meropenem 09/03-09/05 n Ceftriaxone 09/07- 09/18 MEropenem 09/30- 10/08 Vancomycin 09/03- 09/11 Linezolid 09/11- 09/17 l Vancomycin from 09/27- now levofloxacin was started on 10/09 Pulmonary on board for vent management full code prognosis guarded crit time 35 mins spent during the encounter. Thank you for consult and for giving an opportunity to take care of this patient. Dietary Evaluation Review Comments: 1. Consider EN/TPN if NPO >7days 2. Continue plan of care Expected Outcomes/Goals: 1. Pt will meet >75% of estimated needs within 2-3 days Plan discussed with: ANGELLA Peng MD Oct 09, 2024 19:37
--- NOTE | 2024-10-09 23:07 | DVHPN2 ---
Progress Note - Dictate Date Seen: Oct 09, 2024 Has the PT tested + for MRSA If YES, has PT been informed?: Yes Medical Necessity Reason Pt with a Central, PICC or Fol: Yes The following are medically ne: PICC Line, Betancourt Catheter Reason for betancourt catheter: Strict I&O Subjective Patient seen and examined at bedside. Sedated, intubated on mechanical ventilator. Overnight events reviewed. vital signs Vital Sign Date Time Temp Pulse Resp B/P (MAP) Pulse Ox O2 Delivery O2 Flow Rate FiO2 10/09/24 22:45 75 21 101/55 (70) 93 10/09/24 22:00 Mechanical Ventilator+ 40 40 10/09/24 20:00 98.0 98.0 Total Intake and Output 10/08/24 10/08/24 10/09/24 15:00 23:00 07:00 Intake Total 524.246 ml 741.246 ml 1046.309 ml Output Total 2100 ml 450 ml Balance 524.246 ml -1358.754 ml 596.309 ml medications Current Medications Medications Dose Ordered Sig/Acacia Route Start Time Stop Time Status Last Admin Dose Admin Pantoprazole Sodium 40 mg DAILY IV 09/04/24 10:00 10/09/24 08:47 40 MG Sodium Chloride 10 ml QSHIFT@ IV 09/13/24 22:00 10/09/24 22:01 10 ML Albuterol 2.5 mg Q6HPRN PRN NEB 09/21/24 19:00 10/09/24 18:40 2.5 MG Ipratropium [place] 0.5 mg Q6HPRN PRN NEB 09/21/24 19:00 10/09/24 18:40 0.5 MG Midazolam HCl 50 ml @ 1 mls/hr Q24H IV 09/22/24 19:45 10/09/24 20:00 12 MLS/HR Enteral Nutritional Formula 1,000 ml 30ML/HR GT 09/23/24 12:30 10/04/24 17:37 1,000 ML Potassium Chloride/Sodium Chloride 1,000 ml @ 50 mls/hr Q20H IV 09/25/24 12:00 Cancel Acetaminophen 650 mg Q6HP PRN GT 09/30/24 11:45 10/07/24 22:10 650 MG Norepinephrine Bitartrate 250 ml @ 3.75 mls/hr Q24H IV 09/30/24 15:15 10/09/24 06:02 7.5 MLS/HR Metoclopramide HCl 10 mg TID IV 10/01/24 18:00 10/09/24 13:26 10 MG Vancomycin HCl 0 ml @ 0 mls/hr UD IV 10/04/24 12:45 Fentanyl Citrate 250 ml @ 2.5 mls/hr Q24H IV 10/04/24 15:00 10/09/24 21:31 25 MLS/HR Propofol 100 ml @ 2.979 mls/ hr Q24H IV 10/04/24 18:30 10/09/24 11:42 8.937 MLS/HR Lactulose 30 ml Q4HR PO 10/05/24 14:00 10/09/24 17:01 30 ML Oseltamivir Phosphate 75 mg Q12H PO 10/06/24 20:00 10/11/24 19:59 10/09/24 20:03 75 MG Sennosides 17.2 mg Q12HR PO 10/07/24 22:00 Vancomycin HCl 750 mg/Dextrose 100 ml @ 100 mls/hr Q12H IV 10/08/24 09:00 10/09/24 08:40 100 MLS/HR Enoxaparin Sodium 100 mg Q12HR SC 10/08/24 22:00 10/10/24 00:00 10/09/24 22:01 100 MG Dextrose/Sodium Chloride 1,000 ml @ 75 mls/hr [id number] IV 10/08/24 20:00 10/09/24 10:00 75 MLS/HR Levofloxacin/ Dextrose 150 ml @ 100 mls/hr DAILY IV 10/10/24 10:00 objective Gen.: Patient lying in bed in medical ICU. Sedated, intubated on mechanical ventilator. Head: Normocephalic, atraumatic. Eyes: PERRLA. Ears: Normal external anatomy. Throat: Endotracheal tube and orogastric tube in place. Neck: Supple, trachea midline. Chest: Transmitted breath sounds bilaterally. Decreased air entry bilaterally. No wheezing. Bibasilar crackles. Cardiovascular: Positive S1, positive S2. Regular rate and rhythm. Abdomen: Positive bowel sounds in all 4 quadrants. Soft, nontender, nondistended. : Betancourt in place. Normal external genitalia. Rectal: Deferred. Skin: Warm, dry. Intact. Extremities: 2+ radial pulses bilaterally. No lower extremity edema. Neuro: Sedated. laboratory and microbiology Laboratory Tests 10/09/24 03:15 Test 10/09/24 03:15 Range/Units Serum Glucose 104 74-106 mg/dL Assessment/Plan Impression: Acute on chronic hypoxic respiratory failure On mechanical ventilator Pulmonary edema Pleural effusion, left Atelectasis Leukocytosis Lactic acidosis Morbid obesity, BMI 40 Influenza B Events: Patient is intubated, on mechanical ventilator. Vent settings: RR 20, Vt 450, PEEP 5, FIo2 40%. On sedation: Versed/Propofol/Fentanyl Pressors for hemodynamic support. On Levophed 4 mcg/min Titrate to keep MAP above 65 mmHg/SBP above 90 mmHg. Plan for trach/PEG Trach on Friday ABG reviewed, alkalemia CXR demonstrates Bilateral lower lobe airspace disease. Low lung volumes. Devices in place. Continue bronchodilators Continue antibiotics Positive for influenza type B - Tamiflu Tube feeds for nutritional support Monitor renal function Monitor electrolytes. Supplement as necessary. Head of bed elevation Aspiration precautions Lactulose Protonix for GI prophylaxis Awaiting trach/PEG. Continue to monitor respiratory status closely. Poor prognosis Labs and imaging reviewed. Rest of plan as noted below. Plan: S/p intubation, on mechanical ventilator Vent settings: RR 20, Vt 450, Peep 5, FIo2 40%. Bronchodilators Sedated for vent synchrony On pressors for hemodynamic support. Titrate to keep MAP above 65 mmHg/SBP above 90 mmHg. Continue Antibiotics Monitor renal function Monitor ins/outs. Monitor electrolytes. Supplement as necessary. Monitor lactic acid On IVF Nutritional support. Jevity GI/DVT prophylaxis. Condition: Critical Prognosis: Poor given multiple comorbidities. Rest of plan per hospitalist and other consultants. A total of 35 minutes of critical care time was spent reviewing the patient record, examining the patient, making a diagnostic and therapeutic plan, discussing this plan with the medical personnel, following up on diagnostic studies and following the patient for clinical stability excluding any and all procedures. At least 50% of this time was spent in direct, [id number] contact. Thank you Dr. Banda for allowing me to participate in this patient's care. Further recommendations will depend on patient's clinical course. Please do not hesitate to contact me if you have any questions or concerns. This medical document was created using an electronic medical record system with [employer] dictation system. Although this document has been carefully reviewed, there may still be some phonetic and typographical errors. These areas are purely typographical due to imperfections of the software programs, and do not reflect any compromise in the patient's medical care. Dietary Evaluation Review Comments: 1. Consider EN/TPN if NPO >7days 2. Continue plan of care Expected Outcomes/Goals: 1. Pt will meet >75% of estimated needs within 2-3 days Plan discussed with: Other (DEIDRE Guerrero) Critical Care Time(min): 35 SHAI SINGH MD Oct 09, 2024 23:07
[2024-10-10] VITALS (109 sets, daily range): BP systolic 86–119; BP diastolic 32–68; PULSE 64–76; RESP 15–22; TEMP 98–98.5; O2SAT 92–96
[2024-10-10 07:22] LABS: Base Excess 1.3 mmol/L (-2.0-3.0)
[2024-10-10] MEDS: levoFLOXacin 750MG 150 ML IV SCH (09:18)
--- NOTE | 2024-10-10 12:26 | DVHPN2 ---
Subjective Patient was seen and examined at bedside, patient was on 40% FiO2 peep 5 On Levophed for tracheostomy on Friday. No change. Reviewed: Care Plan, H&P, Labs, Medications, Previous Orders, Radiology, Other (Consultants) Changes from previous H/P or p: No Changes Objective Vitals Vital Signs Date Time Temp Pulse Resp B/P (MAP) Pulse Ox O2 Delivery O2 Flow Rate FiO2 10/10/24 12:14 66 21 103/63 (76) 96 40 10/10/24 12:00 Mechanical Ventilator+ 10/10/24 12:00 98.2 98.2 Intake/Output Intake and Output 10/10/24 06:59 Intake Total 3100.744 ml Output Total 1150 ml Balance 1950.744 ml Intake Oral 60 ml IV Total 3040.744 ml Tube Feeding 0 ml Output Urine Total 1150 ml Stool Total 0 ml Exam Obese female patient lying in bed, in no acute distress General: Morbidly obese, afebrile, palor, mucosae are moist, dilated and sluggish light reflex Cardiovascular: Regular S1 and S2. No murmurs, gallops or rubs. No JVD elevation. Lower and upper extremity 1+ edema noticed. Respiratory: Right-sided crepitations heard, saturating 92% on FiO2 of 40%. Abdomen: Abdomen is soft, normal bowel sounds, multiple ventral hernia seen, right-sided dressing removed, no drainage noticed. Stage II decubitus ulcer seen with overlying erythema but no drainage noticed. Midline scar seen. Genitourinary: Vasquez catheter seen MSK/skin: Skin is dry and warm Neurological: Pupils are isocoric and reactive. General Appearance: Other (Sedated and intubated) Medications Current Medications Medications Dose Ordered Sig/Acacia Route Start Time Stop Time Status Last Admin Dose Admin Pantoprazole Sodium 40 mg DAILY IV 09/04/24 10:00 10/10/24 08:16 40 MG Sodium Chloride 10 ml QSHIFT@10,22 IV 09/13/24 22:00 10/10/24 08:16 10 ML Albuterol 2.5 mg Q6HPRN PRN NEB 09/21/24 19:00 10/10/24 06:31 2.5 MG Ipratropium [place] 0.5 mg Q6HPRN PRN NEB 09/21/24 19:00 10/10/24 06:31 0.5 MG Midazolam HCl 50 ml @ 1 mls/hr Q24H IV 09/22/24 19:45 10/10/24 09:19 12 MLS/HR Enteral Nutritional Formula 1,000 ml 30ML/HR GT 09/23/24 12:30 10/04/24 17:37 1,000 ML Potassium Chloride/Sodium Chloride 1,000 ml @ 50 mls/hr Q20H IV 09/25/24 12:00 Cancel Acetaminophen 650 mg Q6HP PRN GT 09/30/24 11:45 10/07/24 22:10 650 MG Norepinephrine Bitartrate 250 ml @ 3.75 mls/hr Q24H IV 09/30/24 15:15 10/09/24 06:02 7.5 MLS/HR Metoclopramide HCl 10 mg TID IV 10/01/24 18:00 10/09/24 13:26 10 MG Vancomycin HCl 0 ml @ 0 mls/hr UD IV 10/04/24 12:45 Fentanyl Citrate 250 ml @ 2.5 mls/hr Q24H IV 10/04/24 15:00 10/10/24 07:11 25 MLS/HR Propofol 100 ml @ 2.979 mls/ hr Q24H IV 10/04/24 18:30 10/10/24 07:08 8.937 MLS/HR Lactulose 30 ml Q4HR PO 10/05/24 14:00 10/09/24 17:01 30 ML Oseltamivir Phosphate 75 mg Q12H PO 10/06/24 20:00 10/11/24 19:59 10/10/24 08:15 75 MG Sennosides 17.2 mg Q12HR PO 10/07/24 22:00 Vancomycin HCl 750 mg/Dextrose 100 ml @ 100 mls/hr Q12H IV 10/08/24 09:00 10/10/24 08:16 100 MLS/HR Dextrose/Sodium Chloride 1,000 ml @ 75 mls/hr [id number] IV 10/08/24 20:00 10/10/24 00:23 75 MLS/HR Levofloxacin/ Dextrose 150 ml @ 100 mls/hr DAILY IV 10/10/24 10:00 10/10/24 09:18 100 MLS/HR Laboratory Results Laboratory Tests 10/09/24 03:15 Urinalysis Test 09/04/24 14:26 09/23/24 09:25 10/06/24 14:11 Urine Amorphous Crystals Few /hpf (None Seen) Urine Total Protein 253.7 mg/dL (1-14) H Urine Yeast (Budding) Moderate /hpf (None Seen) Urine Creatinine 24.25 mg/dL (30.0-125.0) L Urine Sodium 109 mmol/L (40-220) Urine Color Colorless (Yellow) Urine Clarity Turbid (Clear) H Urine pH 5.0 (5.0-9.0) Urine Specific [place] 1.006 (1.001-1.035) Urine Protein Negative (Negative) Urine Ketones Negative (Negative) Urine Blood Trace /uL (Negative) H Urine Nitrite Negative (Negative) Urine Bilirubin Negative (Negative) Urine Urobilinogen Normal mg/dL (Negative) Urine Leukocyte Esterase 2+ /uL (Negative) Urine RBC 25 /hpf (0 - 4) Urine WBC 73 /hpf (0 - 5) Urine Squamous Epithelial Cells Few /hpf (<5) Urine Bacteria Few /hpf (None Seen) H Urine Hyaline Casts Few /lpf (0 - 2) Urine Mucus Few (None Seen) Urine Glucose Normal mg/dL (Normal) Blood Gas Results Test 10/10/24 06:55 Arterial Blood pH 7.410 (7.350-7.450) FiO2 % 40.0 Microbiology Microbiology Date/Time Source Procedure Growth Status 10/07/24 17:31 Urine - [place] Urine Culture - Preliminary Presumptive Juju albicans Resulted 10/06/24 14:50 Blood Blood Culture - Preliminary NO GROWTH AFTER 72 HOURS OF INCUBATION. Resulted 10/04/24 12:40 Sputum Gram Stain - Final Complete 10/04/24 12:40 Sputum Respiratory Culture - Final Complete 09/26/24 13:00 Abdomen Gram Stain - Final Complete 09/26/24 13:00 Wound Culture - Final Methicillin Resistant S.aureus Complete 09/06/24 13:00 Vaginal Vaginal Culture - Final Enterococcus faecalis Methicillin Resistant S.aureus Complete Assessment/Plan Assessment/Plan Acute metabolic encephalopathy likely due to septic shock- Cont Abx, Vasopressors Septic shock NSTEMI likely type 2 secondary to septic shock Probable right ventricular failure Prolonged QTC-resolved Acute hypoxic respiratory failure secondary to probable community-acquired pneumonia due to MRSA and S pneumo- Trach on Friday Advanced COPD Chronic nicotine dependence Influenza B infection critical care time 41 mins Plan discussed with: Other (rn) My Orders Orders - XI ARORA MD Procedure Category Date Status Time Levofloxacin 750mg PHA 10/10/24 In Process (Levuin) 10:00 Date of Service: Oct 10, 2024 Billing Provider: XI ARORA MD Common Visit Codes: [id number] CARE 30-74 MIN XI ARORA MD Oct 10, 2024 12:26
--- NOTE | 2024-10-10 14:20 | DVHPN2 ---
Progress Note Date Seen: Oct 10, 2024 Has the PT tested + for MRSA If YES, has PT been informed?: Yes Medical Necessity Reason Pt with a Central, PICC or Fol: Yes The following are medically ne: PICC Line, Betancourt Catheter Reason for betancourt catheter: Strict I&O Objective vital signs Vital Sign Date Time Temp Pulse Resp B/P (MAP) Pulse Ox O2 Delivery O2 Flow Rate FiO2 10/10/24 13:30 70 21 93/43 (60) 95 10/10/24 12:14 40 10/10/24 12:00 Mechanical Ventilator+ 10/10/24 12:00 98.2 98.2 Total Intake and Output 10/09/24 10/09/24 10/10/24 15:00 23:00 07:00 Intake Total 999 ml 1074.185 ml 1027.059 ml Output Total 375 ml 775 ml Balance 999 ml 699.185 ml 252.059 ml medications Current Medications Medications Dose Ordered Sig/Acacia Route Start Time Stop Time Status Last Admin Dose Admin Pantoprazole Sodium 40 mg DAILY IV 09/04/24 10:00 10/10/24 08:16 40 MG Sodium Chloride 10 ml QSHIFT@10,22 IV 09/13/24 22:00 10/10/24 08:16 10 ML Albuterol 2.5 mg Q6HPRN PRN NEB 09/21/24 19:00 10/10/24 06:31 2.5 MG Ipratropium [place] 0.5 mg Q6HPRN PRN NEB 09/21/24 19:00 10/10/24 06:31 0.5 MG Midazolam HCl 50 ml @ 1 mls/hr Q24H IV 09/22/24 19:45 10/10/24 13:13 12 MLS/HR Enteral Nutritional Formula 1,000 ml 30ML/HR GT 09/23/24 12:30 10/04/24 17:37 1,000 ML Potassium Chloride/Sodium Chloride 1,000 ml @ 50 mls/hr Q20H IV 09/25/24 12:00 Cancel Acetaminophen 650 mg Q6HP PRN GT 09/30/24 11:45 10/07/24 22:10 650 MG Norepinephrine Bitartrate 250 ml @ 3.75 mls/hr Q24H IV 09/30/24 15:15 10/10/24 13:13 3.75 MLS/HR Metoclopramide HCl 10 mg TID IV 10/01/24 18:00 10/10/24 13:12 10 MG Vancomycin HCl 0 ml @ 0 mls/hr UD IV 10/04/24 12:45 Fentanyl Citrate 250 ml @ 2.5 mls/hr Q24H IV 10/04/24 15:00 10/10/24 07:11 25 MLS/HR Propofol 100 ml @ 2.979 mls/ hr Q24H IV 10/04/24 18:30 10/10/24 07:08 8.937 MLS/HR Lactulose 30 ml Q4HR PO 10/05/24 14:00 10/09/24 17:01 30 ML Oseltamivir Phosphate 75 mg Q12H PO 10/06/24 20:00 10/11/24 19:59 10/10/24 08:15 75 MG Sennosides 17.2 mg Q12HR PO 10/07/24 22:00 Dextrose/Sodium Chloride 1,000 ml @ 75 mls/hr [id number] IV 10/08/24 20:00 10/10/24 00:23 75 MLS/HR Levofloxacin/ Dextrose 150 ml @ 100 mls/hr DAILY IV 10/10/24 10:00 10/10/24 09:18 100 MLS/HR Vancomycin HCl 750 mg/Dextrose 100 ml @ 100 mls/hr Q14H IV 10/10/24 22:00 laboratory and microbiology Laboratory Tests 10/09/24 03:15 Test 10/09/24 03:15 Range/Units Serum Glucose 104 74-106 mg/dL Microbiology Date/Time Source Procedure Growth Status 10/07/24 17:31 Urine - [place] Urine Culture - Preliminary Presumptive Juju albicans Resulted 10/06/24 14:50 Blood Blood Culture - Preliminary NO GROWTH AFTER 72 HOURS OF INCUBATION. Resulted 10/04/24 12:40 Sputum Gram Stain - Final Complete 10/04/24 12:40 Sputum Respiratory Culture - Final Complete 09/26/24 13:00 Abdomen Gram Stain - Final Complete 09/26/24 13:00 Wound Culture - Final Methicillin Resistant S.aureus Complete 09/06/24 13:00 Vaginal Vaginal Culture - Final Enterococcus faecalis Methicillin Resistant S.aureus Complete Problem List/Assessment/Plan Problem List/Assessment/Plan REMAINS INTUBATED AFEBRILE VSS LOW VASOPRESSOR SUPPORT RESP FAILURE PENDING TRACHEOSTOMY CARD EVAL ONGOING CLEARED FOR SURGERY CONSIDER TRACHEOSTOMY BASED ON ONGOING EVAL NURSE AT BEDSIDE Plan discussed with: Other Dietary Evaluation Review Comments: 1. Consider EN/TPN if NPO >7days 2. Continue plan of care Expected Outcomes/Goals: 1. Pt will meet >75% of estimated needs within 2-3 days MAZIN RUIZ MD Oct 10, 2024 14:20
--- NOTE | 2024-10-10 16:05 | DVHPN2 ---
Progress Note - Dictate Date Seen: Oct 10, 2024 Has the PT tested + for MRSA If YES, has PT been informed?: Yes Medical Necessity Reason Pt with a Central, PICC or Fol: Yes The following are medically ne: PICC Line, Betancourt Catheter Reason for betancourt catheter: Strict I&O Subjective Patient was seen and evaluated in follow up in the ICU. Patient is intubated and sedated on ventilator. FiO2 remains at 40%. Prelim urine culture shows presumptive Juju albicans. vital signs Vital Sign Date Time Temp Pulse Resp B/P (MAP) Pulse Ox O2 Delivery O2 Flow Rate FiO2 10/10/24 13:13 94/41 10/10/24 12:14 66 21 96 40 10/10/24 12:00 Mechanical Ventilator+ 10/10/24 12:00 98.2 98.2 Total Intake and Output 10/09/24 10/09/24 10/10/24 15:00 23:00 07:00 Intake Total 999 ml 1074.185 ml 1027.059 ml Output Total 375 ml 775 ml Balance 999 ml 699.185 ml 252.059 ml medications Current Medications Medications Dose Ordered Sig/[place] Route Start Time Stop Time Status Last Admin Dose Admin Pantoprazole Sodium 40 mg DAILY IV 09/04/24 10:00 10/10/24 08:16 40 MG Sodium Chloride 10 ml QSHIFT@ IV 09/13/24 22:00 10/10/24 08:16 10 ML Albuterol 2.5 mg Q6HPRN PRN NEB 09/21/24 19:00 10/10/24 06:31 2.5 MG Ipratropium [place] 0.5 mg Q6HPRN PRN NEB 09/21/24 19:00 10/10/24 06:31 0.5 MG Midazolam HCl 50 ml @ 1 mls/hr Q24H IV 09/22/24 19:45 10/10/24 13:13 12 MLS/HR Enteral Nutritional Formula 1,000 ml 30ML/HR GT 09/23/24 12:30 10/04/24 17:37 1,000 ML Potassium Chloride/Sodium Chloride 1,000 ml @ 50 mls/hr Q20H IV 09/25/24 12:00 Cancel Acetaminophen 650 mg Q6HP PRN GT 09/30/24 11:45 10/07/24 22:10 650 MG Norepinephrine Bitartrate 250 ml @ 3.75 mls/hr Q24H IV 09/30/24 15:15 10/10/24 13:13 3.75 MLS/HR Metoclopramide HCl 10 mg TID IV 10/01/24 18:00 10/10/24 13:12 10 MG Vancomycin HCl 0 ml @ 0 mls/hr UD IV 10/04/24 12:45 Fentanyl Citrate 250 ml @ 2.5 mls/hr Q24H IV 10/04/24 15:00 10/10/24 07:11 25 MLS/HR Propofol 100 ml @ 2.979 mls/ hr Q24H IV 10/04/24 18:30 10/10/24 07:08 8.937 MLS/HR Lactulose 30 ml Q4HR PO 10/05/24 14:00 10/09/24 17:01 30 ML Oseltamivir Phosphate 75 mg Q12H PO 10/06/24 20:00 10/11/24 19:59 10/10/24 08:15 75 MG Sennosides 17.2 mg Q12HR PO 10/07/24 22:00 Vancomycin HCl 750 mg/Dextrose 100 ml @ 100 mls/hr Q12H IV 10/08/24 09:00 10/10/24 08:16 100 MLS/HR Dextrose/Sodium Chloride 1,000 ml @ 75 mls/hr [id number] IV 10/08/24 20:00 10/10/24 00:23 75 MLS/HR Levofloxacin/ Dextrose 150 ml @ 100 mls/hr DAILY IV 10/10/24 10:00 10/10/24 09:18 100 MLS/HR objective GENERAL: Intubated on ventilator. Morbidly obese. LUNGS: Decreased breath sounds. CARDIOVASCULAR: Heart sounds are good. ABDOMEN: Soft. Morbid pannus limited physical palpation. SKIN: Multiple scars to abdomen. laboratory and microbiology Laboratory Tests 10/09/24 03:15 Test 10/09/24 03:15 Range/Units Serum Glucose 104 74-106 mg/dL Problem List Septic shock. Acute on chronic respiratory failure. NSTEMI type II secondary to above. Rule out structural heart disease. Prolonged QT interval. Morbid obesity, Class 3. Influenza B Assessment/Plan Continued all current supportive medical care. Lactulose. IV antibiotics as ordered. GI prophylactics. Vasopressors for hemodynamic support. Nebulized breathing treatments. Additional plan as per the hospital course. Critical care time of 45 minutes provided to include time spent evaluation of patient at bedside, when appropriate patient/family education for diagnosis, treatment plan, review of pertinent medical information and discussion of care with specialty providers and PCP. Mechanical ventilator parameters, treatment and adjustments have personally been reviewed by me and treatment plan by senior net architect has also been reviewed. Dietary Evaluation Review Comments: 1. Consider EN/TPN if NPO >7days 2. Continue plan of care Expected Outcomes/Goals: 1. Pt will meet >75% of estimated needs within 2-3 days Plan discussed with: Other RELL STEWART MD Oct 10, 2024 13:35
--- NOTE | 2024-10-10 19:14 | DVHPN2 ---
Progress Note - Dictate Date Seen: Oct 10, 2024 Has the PT tested + for MRSA If YES, has PT been informed?: Yes Medical Necessity Reason Pt with a Central, PICC or Fol: Yes The following are medically ne: PICC Line, Betancourt Catheter Reason for betancourt catheter: Strict I&O Subjective Patient is intubated and sedated on ventilator. FiO2 40%. Patient is afebrile Patient had green output from NGT. Patient is planned for tracheostomy on Thursday 10/11. WBC 11.8, HCT 33.3, CL 109. on Vasopressor suppport. Prelim urine culture shows presumptive Juju albicans. fever has improved vital signs Vital Sign Date Time Temp Pulse Resp B/P (MAP) Pulse Ox O2 Delivery O2 Flow Rate FiO2 10/10/24 18:30 70 21 101/54 (70) 95 10/10/24 18:08 Mechanical Ventilator+ 40 40 10/10/24 16:00 98.4 98.4 Total Intake and Output 10/09/24 10/09/24 10/10/24 15:00 23:00 07:00 Intake Total 999 ml 1074.185 ml 1027.059 ml Output Total 375 ml 775 ml Balance 999 ml 699.185 ml 252.059 ml medications Current Medications Medications Dose Ordered Sig/[place] Route Start Time Stop Time Status Last Admin Dose Admin Pantoprazole Sodium 40 mg DAILY IV 09/04/24 10:00 10/10/24 08:16 40 MG Sodium Chloride 10 ml QSHIFT@10,22 IV 09/13/24 22:00 10/10/24 08:16 10 ML Albuterol 2.5 mg Q6HPRN PRN NEB 09/21/24 19:00 10/10/24 18:16 2.5 MG Ipratropium [place] 0.5 mg Q6HPRN PRN NEB 09/21/24 19:00 10/10/24 18:16 0.5 MG Midazolam HCl 50 ml @ 1 mls/hr Q24H IV 09/22/24 19:45 10/10/24 16:51 12 MLS/HR Enteral Nutritional Formula 1,000 ml 30ML/HR GT 09/23/24 12:30 10/04/24 17:37 1,000 ML Potassium Chloride/Sodium Chloride 1,000 ml @ 50 mls/hr Q20H IV 09/25/24 12:00 Cancel Acetaminophen 650 mg Q6HP PRN GT 09/30/24 11:45 10/07/24 22:10 650 MG Norepinephrine Bitartrate 250 ml @ 3.75 mls/hr Q24H IV 09/30/24 15:15 10/10/24 13:13 3.75 MLS/HR Metoclopramide HCl 10 mg TID IV 10/01/24 18:00 10/10/24 13:12 10 MG Vancomycin HCl 0 ml @ 0 mls/hr UD IV 10/04/24 12:45 Fentanyl Citrate 250 ml @ 2.5 mls/hr Q24H IV 10/04/24 15:00 10/10/24 16:56 25 MLS/HR Propofol 100 ml @ 2.979 mls/ hr Q24H IV 10/04/24 18:30 10/10/24 18:12 8.937 MLS/HR Lactulose 30 ml Q4HR PO 10/05/24 14:00 10/09/24 17:01 30 ML Oseltamivir Phosphate 75 mg Q12H PO 10/06/24 20:00 10/11/24 19:59 10/10/24 08:15 75 MG Sennosides 17.2 mg Q12HR PO 10/07/24 22:00 Dextrose/Sodium Chloride 1,000 ml @ 75 mls/hr [id number] IV 10/08/24 20:00 10/10/24 16:51 75 MLS/HR Levofloxacin/ Dextrose 150 ml @ 100 mls/hr DAILY IV 10/10/24 10:00 10/10/24 09:18 100 MLS/HR Vancomycin HCl 750 mg/Dextrose 100 ml @ 100 mls/hr Q14H IV 10/10/24 22:00 objective General: Intubated and sedated HEENT: Atraumatic,intubated Neck: No swelling Lungs: Equal air entry and clear to auscultation Cardiovascular: S1 S2 heard no murmur Abdomen: Soft nontender, no organomegaly, nondistended Neuro: sedated, unable to assess Psych: unable to assess laboratory and microbiology Laboratory Tests 10/09/24 03:15 Test 10/09/24 03:15 Range/Units Serum Glucose 104 74-106 mg/dL Assessment/Plan Patient is a 63-year-old female presented to the hospital with: #Influenza B failed extubation, reintubated Staphylococcus aureus pneumonia ( MRSA) Streptococcus Pneumoniae pneumonia Septic shock resolving bacteremia : coag neg staphylococccus, possible contamination Acute Respiratory Failure [requiring mechanical ventilation] severe hypoxia Metabolic acidosis FEDE Morbidly obese BMI = 40 PE history Recommendations: Flu B +ve on 10/06. 10/07; blood cultures show no growth 10/06, blood culture showed no growth 10/06, urine culture preliminary showed no growth 10/04, sputum culture showed no growth Cont Tamiflu for 5-7 days. most recent cultures are negative hence recommend discontinuing Vancomycin and Meropenem. recurrent intubations due as she desats after extubation Reintubation again on 10/04 and before on 09/22. Trach procedure on Friday I feel she is already received prolonged course of antibiotics for MRSA pneumonia. 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 Patient had difficult extubation in the past, 4 years ago when she was intubated for surgery as per records. Antibiotics review Cefepime 09/02- 09/06 Meropenem 09/03-09/05 n Ceftriaxone 09/07- 09/18 MEropenem 09/30- 10/08 Vancomycin 09/03- 09/11 Linezolid 09/11- 09/17 l Vancomycin from 09/27- now levofloxacin was started on 10/09 Pulmonary on board for vent management full code prognosis guarded crit time 35 mins spent during the encounter. Thank you for consult and for giving an opportunity to take care of this patient. Dietary Evaluation Review Comments: 1. Consider EN/TPN if NPO >7days 2. Continue plan of care Expected Outcomes/Goals: 1. Pt will meet >75% of estimated needs within 2-3 days Plan discussed with: ANGELLA Peng MD Oct 10, 2024 19:14
--- NOTE | 2024-10-10 21:27 | DVHPN2 ---
Progress Note - Dictate Date Seen: Oct 10, 2024 Has the PT tested + for MRSA If YES, has PT been informed?: Yes Medical Necessity Reason Pt with a Central, PICC or Fol: Yes The following are medically ne: PICC Line, Betancourt Catheter Reason for betancourt catheter: Strict I&O Subjective Patient seen and examined at bedside. Sedated, intubated on mechanical ventilator. Overnight events reviewed. vital signs Vital Sign Date Time Temp Pulse Resp B/P (MAP) Pulse Ox O2 Delivery O2 Flow Rate FiO2 10/10/24 21:24 92/52 10/10/24 20:15 71 21 94 10/10/24 20:00 Mechanical Ventilator+ 40 40 10/10/24 20:00 98.5 98.5 Total Intake and Output 10/09/24 10/09/24 10/10/24 15:00 23:00 07:00 Intake Total 999 ml 1074.185 ml 1027.059 ml Output Total 375 ml 775 ml Balance 999 ml 699.185 ml 252.059 ml medications Current Medications Medications Dose Ordered Sig/Acacia Route Start Time Stop Time Status Last Admin Dose Admin Pantoprazole Sodium 40 mg DAILY IV 09/04/24 10:00 10/10/24 08:16 40 MG Sodium Chloride 10 ml QSHIFT@ IV 09/13/24 22:00 10/10/24 08:16 10 ML Albuterol 2.5 mg Q6HPRN PRN NEB 09/21/24 19:00 10/10/24 18:16 2.5 MG Ipratropium [place] 0.5 mg Q6HPRN PRN NEB 09/21/24 19:00 10/10/24 18:16 0.5 MG Midazolam HCl 50 ml @ 1 mls/hr Q24H IV 09/22/24 19:45 10/10/24 21:24 12 MLS/HR Enteral Nutritional Formula 1,000 ml 30ML/HR GT 09/23/24 12:30 10/04/24 17:37 1,000 ML Potassium Chloride/Sodium Chloride 1,000 ml @ 50 mls/hr Q20H IV 09/25/24 12:00 Cancel Acetaminophen 650 mg Q6HP PRN GT 09/30/24 11:45 10/07/24 22:10 650 MG Norepinephrine Bitartrate 250 ml @ 3.75 mls/hr Q24H IV 09/30/24 15:15 10/10/24 13:13 3.75 MLS/HR Metoclopramide HCl 10 mg TID IV 10/01/24 18:00 10/10/24 13:12 10 MG Vancomycin HCl 0 ml @ 0 mls/hr UD IV 10/04/24 12:45 Fentanyl Citrate 250 ml @ 2.5 mls/hr Q24H IV 10/04/24 15:00 10/10/24 16:56 25 MLS/HR Propofol 100 ml @ 2.979 mls/ hr Q24H IV 10/04/24 18:30 10/10/24 18:12 8.937 MLS/HR Lactulose 30 ml Q4HR PO 10/05/24 14:00 10/09/24 17:01 30 ML Oseltamivir Phosphate 75 mg Q12H PO 10/06/24 20:00 10/11/24 19:59 10/10/24 20:30 75 MG Sennosides 17.2 mg Q12HR PO 10/07/24 22:00 Dextrose/Sodium Chloride 1,000 ml @ 75 mls/hr [id number] IV 10/08/24 20:00 10/10/24 16:51 75 MLS/HR Levofloxacin/ Dextrose 150 ml @ 100 mls/hr DAILY IV 10/10/24 10:00 10/10/24 09:18 100 MLS/HR Vancomycin HCl 750 mg/Dextrose 100 ml @ 100 mls/hr Q14H IV 10/10/24 22:00 objective Gen.: Patient lying in bed in medical ICU. Sedated, intubated on mechanical ventilator. Head: Normocephalic, atraumatic. Eyes: PERRLA. Ears: Normal external anatomy. Throat: Endotracheal tube and orogastric tube in place. Neck: Supple, trachea midline. Chest: Transmitted breath sounds bilaterally. Decreased air entry bilaterally. No wheezing. Bibasilar crackles. Cardiovascular: Positive S1, positive S2. Regular rate and rhythm. Abdomen: Positive bowel sounds in all 4 quadrants. Soft, nontender, nondistended. : Betancourt in place. Normal external genitalia. Rectal: Deferred. Skin: Warm, dry. Intact. Extremities: 2+ radial pulses bilaterally. No lower extremity edema. Neuro: Sedated. laboratory and microbiology Laboratory Tests 10/09/24 03:15 Test 10/09/24 03:15 Range/Units Serum Glucose 104 74-106 mg/dL Assessment/Plan Impression: Acute on chronic hypoxic respiratory failure On mechanical ventilator Pulmonary edema Pleural effusion, left Atelectasis Leukocytosis Lactic acidosis Morbid obesity, BMI 40 Influenza B Events: Patient is intubated, on mechanical ventilator. Vent settings: RR 21, Vt 450, PEEP 5, FIo2 40%. On sedation: Versed/Propofol/Fentanyl Pressors for hemodynamic support. On Levophed 2 mcg/min Titrate to keep MAP above 65 mmHg/SBP above 90 mmHg. Improving pressor requirements Awaiting trach/PEG ABG reviewed, compensated CXR demonstrates Bilateral lower lobe opacities. Devices in place. Continue bronchodilators Continue antibiotics Influenza type B - Tamiflu Sputum cultures notable for Juju albicans. Tube feeds for nutritional support Monitor renal function Monitor electrolytes. Supplement as necessary. Head of bed elevation Aspiration precautions Lactulose Protonix for GI prophylaxis Awaiting trach/PEG. Continue to monitor respiratory status closely. Poor prognosis Labs and imaging reviewed. Rest of plan as noted below. Plan: S/p intubation, on mechanical ventilator Vent settings: RR 21, Vt 450, Peep 5, FIo2 40%. Bronchodilators Sedated for vent synchrony On pressors for hemodynamic support. Titrate to keep MAP above 65 mmHg/SBP above 90 mmHg. Continue Antibiotics Monitor renal function Monitor ins/outs. Monitor electrolytes. Supplement as necessary. Monitor lactic acid On IVF Nutritional support. Jevity GI/DVT prophylaxis. Condition: Critical Prognosis: Poor given multiple comorbidities. Rest of plan per hospitalist and other consultants. A total of 35 minutes of critical care time was spent reviewing the patient record, examining the patient, making a diagnostic and therapeutic plan, discussing this plan with the medical personnel, following up on diagnostic studies and following the patient for clinical stability excluding any and all procedures. At least 50% of this time was spent in direct, [id number] contact. Thank you Dr. Banda for allowing me to participate in this patient's care. Further recommendations will depend on patient's clinical course. Please do not hesitate to contact me if you have any questions or concerns. This medical document was created using an electronic medical record system with [employer] dictation system. Although this document has been carefully reviewed, there may still be some phonetic and typographical errors. These areas are purely typographical due to imperfections of the software programs, and do not reflect any compromise in the patient's medical care. Dietary Evaluation Review Comments: 1. Consider EN/TPN if NPO >7days 2. Continue plan of care Expected Outcomes/Goals: 1. Pt will meet >75% of estimated needs within 2-3 days Plan discussed with: Other (DEIDRE Guerrero) Critical Care Time(min): 35 SHAI SINGH MD Oct 10, 2024 21:27
[2024-10-10] MEDS: VANCOMYCIN 750MG VIAL 750 MG in D5W 5% 100 ML IV SCH (21:52)
[2024-10-11] VITALS (106 sets, daily range): BP systolic 90–139; BP diastolic 53–80; PULSE 59–91; RESP 15–22; TEMP 98.1–98.4; O2SAT 89–100
[2024-10-11 04:07] LABS: Basophils # (auto) 0.1 10 ^3/uL (0-0.2); Basophils % (auto) 1.4 % (0.0-2.0); Eosinophils # (auto) 0.2 10 ^3/uL (0-0.8); Eosinophils % (auto) 2.7 % (0.0-7.0); Hematocrit 29.3 % (36.0-46.0); Hemoglobin 9.6 g/dL (12.2-16.2); Lymphocytes # (auto) 1.5 10 ^3/uL (0.4-5.4); Lymphocytes % (auto) 20.1 % (10.0-50.0); Mean Corpuscular Hgb Conc. 32.9 g/dL (32.0-36.0); Mean Corpuscular Volume 88.1 fL (80.0-100.0); Monocytes # (auto) 0.8 10 ^3/uL (0-1.3); Monocytes % (auto) 11.6 % (0.0-12.0); Neutrophils # (auto) 4.7 10 ^3/uL (1.6-8.6); Neutrophils % (auto) 64.2 % (37.0-80.0); Nucleated Red Blood Cells % 0.2 %; Platelet Count (auto) 345 10^3/uL (140-450); Red Blood Cells 3.33 10^6/uL (4.0-5.20); Red Cell Distribution Width 14.4 % (11.8-14.3); White Blood Cell 7.4 10^3/uL (4.4-10.8)
[2024-10-11 04:20] LABS: Anion Gap 6 (5-15); Carbon Dioxide 28 mmol/L (20-31); Sodium 143 mmol/L (136-145)
[2024-10-11 04:26] LABS: BUN/Creatinine Ratio 12.8 (10.0-20.0); Glucose 97 mg/dL (74-106)
[2024-10-11 04:33] LABS: Blood Urea Nitrogen 6 mg/dL (9-23); Calcium 10.8 mg/dL (8.7-10.4); Chloride 109 mmol/L (98-107); Potassium 3.4 mmol/L (3.5-5.1)
[2024-10-11 04:39] LABS: INR 1.13 (0.9-1.15); Prothrombin Time 11.9 sec (9.3-11.8)
[2024-10-11] MEDS: POTASSIUM CHL 20MEQ/100ML 100 ML IV SCH (10:09)
--- NOTE | 2024-10-11 10:14 | DVH ---
CHEST RADIOGRAPH Indication: f/u Technique: Single frontal view of the chest was obtained COMPARISON: XY CHEST XRAY 1 VIEW on DOS: 10/09/24, XY CHEST XRAY 1 VIEW on DOS: 10/08/24, XY CHEST PO RTABLE on DOS: 10/07/24, XY CHEST PORTABLE on DOS: 10/06/24, XY CHEST PORTABLE on DOS: 10/05/24 FINDINGS: Lines and Tubes: Endotracheal tube and enteric catheter in satisfactory position. Lungs: Multifocal airspace disease. Pleura: Small bilateral pleural effusions. No pneumothorax. Cardiomediastinal contours: Unremarkable Bones: Unremarkable IMPRESSION: Lines and tubes in satisfactory position. No significant interval change.
[2024-10-11 10:45] LABS: Rapid Influenza A Negative (Negative); Rapid Influenza B Negative (Negative)
[2024-10-11] MEDS: MAGNESIUM SULFATE 1GM/100ML 100 ML IV SCH (12:18)
--- NOTE | 2024-10-11 16:00 | DVHPNRES ---
Progress Note Date Seen: Oct 11, 2024 Resident Creating Document: NAN AMAYA RESIDENT Has the PT tested + for MRSA If YES, has PT been informed?: Yes Medical Necessity Reason Pt with a Central, PICC or Fol: Yes The following are medically ne: PICC Line, Betancourt Catheter Reason for betancourt catheter: Strict I&O Subjective Review of Systems This is a 63-year-old female patient with PMHx of PE in 2015, multiple abdominal surgeries including hernia and bowel obstruction, lasts hernia surgery [place] [address] Anaya, right distal ureteral calculus in February 2024, AKA, rib fractures, chronic nicotine dependence in polysubstance use including methamphetamine and cannabis presented to the ER with a chief complaint of shortness of breaths. She was successfully intubated on 09/02. Per patient's daughter, patient became short of breath and febrile at 102.7 F, and therefore they had to call [facility]. Patient was saturating at 70% and therefore the patient was brought to the ER. She was intubated once before 4 years back after abdominal surgery at [facility] where she experienced difficult extubation. Patient is a nonsmoker for more than 50 years, currently smokes more than 1 pack a day. 09/05 - 2 small granulating wounds on abdomen are suture granulomas, sutures removed by surgeon 09/28 - Patient seen and examined at the bedside. Overnight patient became bradycardic, pulse was 30s, telemetry reviewed rhythm was regular, likely sinus bradycardia, sedation was turned off and the patient's pulse went up to 58 beats per minute which is her baseline. No bowel movements overnight. Patient made around 950 cc of urine. 40 mEq of potassium supplement and 2 g magnesium supplemented. Continue IV vancomycin and levofloxacin. Id on board. CPAP trial ended early as the patient became tachypneic with RR of 46/min. Raised Jevity 1.2 to 40 mL/hour. 09/29 - patient is sedated and mechanically intubated. Overnight patient made 450 mL of urine. ABG in the a.m. shows respiratory alkalosis, CO2 decreased from 38-32 and bicarb decreased from 25-22. Corrected calcium 12.3. PTH level 19. Chest x-ray shows left-sided aeration is better than as compared to when on admission. Patient underwent CPAP trial which and that as the patient became tachypneic. Discussed the option of tracheostomy with patient's daughter Toshia, she said that the family and herself does not want tracheostomy and did not think that patient would want tracheostomy. Patient's family requesting for bronchoscopy. Dr. Luis consulted for bronchoscopy per patient's family request. Bronchoscopy performed 09/29 shows Right lower lobe atelectasis due to mucous plugging. Mucous plugging from R6-R10 K 2.9, 80 mEq replenished. Mag 1.7, 2 g replenished. 09/30-patient seen and examined at bedside. 625 mL of urine overnight. 2 L of urine during the day of 09/29. No bowel movement. Lactulose started. T-max of 99.6 overnight. DC Levaquin today started meropenem. Family meeting for over 50 minutes today. Family declined tracheostomy, per daughter the patient would be very upset on tracheostomy and it would be a burden on her. CPAP trial earlier next week. 10/01 - patient seen and examined at bedside. DC Diflucan. Started Reglan IV 10 mg TID, started Colace and senna, lactulose increased to b.i.d.. Chest x-ray shows worsening pulmonary vascular congestion and bilateral effusion. Last bowel movement was on 23 September. Cumulative intake output less 4 L. ABG shows metabolic alkalosis with respiratory acidosis. Consider Diamox if patient becomes more alkalotic. 10/04 - over night T-max 99.7, pulse 110, blood pressure elevated to 181/103. Corrected calcium 13.2. Patient received 1 dose of calcitonin SC. Patient was tachypneic on BiPAP, rate in the range of 47-51. Patient was altered. Called family, per Toshia - family decided to go for tracheostomy, consult received for re-intubation. Patient reintubated at 12:10 p.m. ETT retracted 2 cm. Chest x- ray in a.m.. Surgeon consulted for tracheostomy. Planning tracheostomy on 07 October. Initiated half NS at 75 cc/hour. DC meropenem, switched to ceftriaxone and continue vancomycin. ABG showed compensated metabolic alkalosis. Last BM on . 10/05 - overnight low-grade fever 100.1 at the time of intubation, urine output 675 mL. No bowel movement. Increase lactulose to q.4. Increased dose of senna. On propofol 5, fentanyl 250, Versed 12 and Levophed4. 250 bolus of NS administered. ABG shows metabolic alkalosis with respiratory alkalosis. Respiratory rate decreased from 22-20. Corrected calcium 12.4 downtrending. 10/06 - patient is T-max 100.2 F. COVID, influenza, UA ordered. Tylenol 650 mg started. Discontinued half NS. Lasix 20 mg IV given in the a.m. urine output 500 mL post Lasix. Lasix 20 mg IV in the p.m.. NPO starting midnight. Holding Lovenox for tracheostomy. Repeat blood culture ordered. 10/07-patient is having temperature 101.1 F. tracheostomy postponed. WBC count elevated from 11-. Change Betancourt. Repeat urine culture. Started meropenem. Levophed requirement increased from 2 to 12 Repeat respiratory culture, blood culture, urine culture preliminary are negative. 10/08-overnight patient was febrile at 100.8 F. WBC increased to 17 from 12. Continuing with vancomycin. Repeat preliminary blood, urine, respiratory culture negative. DC meropenem. Started Levaquin. Corrected calcium 12.1. Started D5 half NS. Restarted Lovenox 100 mg q.12. Trach planned for Friday. Hold Lovenox starting 10/10. RR increased to 21 10/11 - patient seen and examined at the bedside. Hemoglobin steadily dropping. Occult Blood ordered. Continue D5 half NS. Corrected calcium 11.7. DC vancomycin. Repeat influenza testing negative. Rectal exam completed, decreased tone, no masses felt, mucoid secretions. Pending FOBT. Objective vital signs Vital Sign Date Time Temp Pulse Resp B/P (MAP) Pulse Ox O2 Delivery O2 Flow Rate FiO2 10/11/24 15:15 64 21 116/68 (84) 96 10/11/24 14:00 Mechanical Ventilator+ 40 40 10/11/24 12:00 98.1 98.1 Total Intake and Output 10/10/24 10/10/24 10/11/24 14:59 22:59 06:59 Intake Total 1109 ml 1059.00 ml 1182.0 ml Output Total 1450 ml 1550 ml Balance 1109 ml -391.00 ml -368.0 ml medications Current Medications Medications Dose Ordered Sig/Acacia Route Start Time Stop Time Status Last Admin Dose Admin Pantoprazole Sodium 40 mg DAILY IV 09/04/24 10:00 10/11/24 08:29 40 MG Sodium Chloride 10 ml QSHIFT@10,22 IV 09/13/24 22:00 10/11/24 08:29 10 ML Albuterol 2.5 mg Q6HPRN PRN NEB 09/21/24 19:00 10/10/24 18:16 2.5 MG Ipratropium [place] 0.5 mg Q6HPRN PRN NEB 09/21/24 19:00 10/10/24 18:16 0.5 MG Midazolam HCl 50 ml @ 1 mls/hr Q24H IV 09/22/24 19:45 10/11/24 14:29 12 MLS/HR Enteral Nutritional Formula 1,000 ml 30ML/HR GT 09/23/24 12:30 10/04/24 17:37 1,000 ML Potassium Chloride/Sodium Chloride 1,000 ml @ 50 mls/hr Q20H IV 09/25/24 12:00 Cancel Acetaminophen 650 mg Q6HP PRN GT 09/30/24 11:45 10/07/24 22:10 650 MG Norepinephrine Bitartrate 250 ml @ 3.75 mls/hr Q24H IV 09/30/24 15:15 10/10/24 13:13 3.75 MLS/HR Metoclopramide HCl 10 mg TID IV 10/01/24 18:00 10/11/24 13:55 10 MG Fentanyl Citrate 250 ml @ 2.5 mls/hr Q24H IV 10/04/24 15:00 10/11/24 12:23 25 MLS/HR Propofol 100 ml @ 2.979 mls/ hr Q24H IV 10/04/24 18:30 10/11/24 12:22 8.937 MLS/HR Lactulose 30 ml Q4HR PO 10/05/24 14:00 10/11/24 13:55 30 ML Oseltamivir Phosphate 75 mg Q12H PO 10/06/24 20:00 10/11/24 19:59 10/11/24 08:29 75 MG Dextrose/Sodium Chloride 1,000 ml @ 75 mls/hr [id number] IV 10/08/24 20:00 10/11/24 06:18 75 MLS/HR Levofloxacin/ Dextrose 150 ml @ 100 mls/hr DAILY IV 10/10/24 10:00 10/11/24 08:29 100 MLS/HR Examination Obese female patient lying in bed, in no acute distress RASS -4 General: Morbidly obese, afebrile, palor, mucosae are moist, dilated and sluggish light reflex Cardiovascular: Tachycardic but Regular S1 and S2. No murmurs, gallops or rubs. No JVD elevation. Lower and upper extremity 1+ edema noticed. Respiratory: Right-sided crepitations heard, saturating 96% on FiO2 of 40%. Abdomen: Abdomen is soft, normal bowel sounds, multiple ventral hernia seen, right-sided dressing removed, no drainage noticed. Stage II decubitus ulcer seen with overlying erythema but no drainage noticed. Midline scar seen. Rectal exam completed, decreased tone, no masses felt, mucoid secretions. Genitourinary: Betancourt catheter seen MSK/skin: Skin is dry and warm Neurological: Pupils are isocoric and reactive. laboratory and microbiology Laboratory Tests 10/11/24 03:00 Test 10/11/24 03:00 Range/Units Serum Glucose 97 74-106 mg/dL Microbiology Date/Time Source Procedure Growth Status 10/07/24 17:31 Urine - Betancourt [place] Urine Culture - Final Presumptive Juju albicans Complete 10/06/24 14:50 Blood Blood Culture - Final NO GROWTH AFTER 5 DAYS OF INCUBATION. Complete 10/04/24 12:40 Sputum Gram Stain - Final Complete 10/04/24 12:40 Sputum Respiratory Culture - Final Complete 09/26/24 13:00 Abdomen Gram Stain - Final Complete 09/26/24 13:00 Wound Culture - Final Methicillin Resistant S.aureus Complete 09/06/24 13:00 Vaginal Vaginal Culture - Final Enterococcus faecalis Methicillin Resistant S.aureus Complete Labs and/or images reviewed: Labs reviewed by me, Image(s) reviewed by me Problem List/Assessment/Plan Problem List/Assessment/Plan NEUROLOGY Acute metabolic encephalopathy likely due to septic shock - patient is sedated and mechanically ventilated, RASS -2 CARDIOVASCULAR Septic shock NSTEMI likely type 2 secondary to septic shock Probable right ventricular failure Prolonged QTC-resolved - cardiology recommended conservative management - echocardiogram shows dyskinesis of IVC, dilated RV and dilated RA. RV failure. Mild LVH and mild LV diastolic dysfunction with EF 65 % - blood culture 09/02 showed Staph hominis sensitive to vancomycin - repeat blood culture 09/11 showed Staphylococcus epidermidis sensitive to Cipro, clinda, linezolid, vancomycin - repeat blood culture 09/24 shows no growth - repeat blood culture 10/06 shows no growth - discontinued furosemide 40 mg IV daily starting 09/27 till 10/04 - Lasix 20 mg b.i.d. given 10/06 RESPIRATORY Acute hypoxic respiratory failure secondary to probable community-acquired pneumonia due to MRSA and S pneumo Advanced COPD Chronic nicotine dependence Influenza B infection - patient was intubated and mechanically ventilated starting 09/02 - bronchoscopy completed 09/07, results showed MRSA positive - repeat bronchoscopy 09/08, showed comparatively lesser secretions - sputum culture 09/02 showed MRSA, strep pneumo - bronchial wash specimen collected 09/07 showed MRSA - repeat respiratory culture 09/22 showed MRSA and presumtive Juju albicans - received cefepime from 09/02 to 09/06 - received meropenem 11/03 to 09/05, - received vancomycin from 09/03 to 09/11 - received ceftriaxone 2 g daily from 09/13 to 09/19 - received linezolid from 09/11 to 09/17 - continue albuterol and ipratropium q.6 hour p.r.n. - ongoing antibiotics: Continue Levaquin starting 10/08. - vancomycin 09/27 till 10/11 and started oseltamivir 75 mg b.i.d. 10/06 till 10/11 - discontinued IV meropenem started from 09/30 till 10/04 - discontinued Diflucan-patient received from 09/27 till 10/01 - discontinued Levaquin 09/30 - 09/28 and 09/29 CPAP trial ended early as the patient became tachypneic with RR of 46/min. - 10/04- patient tachypneic on BiPAP, reintubated per family's request. Family considering tracheostomy. Consent signed. Tracheostomy 10/12 - Dr. Luis consulted for bronchoscopy. Bronchoscopy performed 09/29 shows mucus plugs in the left upper lobe. - respiratory culture preliminary shows no organism. GI History of multiple surgeries secondary to hernia and bowel obstruction Multiple ventral wall hernias Possible bowel obstruction Transaminitis secondary to septic shock Rhabdomyolysis likely secondary to immobilization Surgeon consulted-recommended conservative management, small varices could not be performed at this moment due to respiratory status of the patient Continue IV pantoprazole 40 mg daily Discontinued senna b.i.d. Lactulose increased to q.4 10/05 /KIDNEY FEDE, likely secondary to VMN - resolved Probable pelvic inflammatory disease Hyponatremia-resolved Hypomagnesemia Hypercalcemia -corrected calcium 12.1, started D5 half NS 10/08 - creatinine downtrending - creatinine kinase downtrended from 8215 to 77 - nephrology consulted, last hemodialysis session was performed on 09/10 - urine bacterial culture 09/02 showed less than 03714 CFU of coagulase-negative Staphylococcus - vaginal culture 09/06 showed coagulase-negative Staphylococcus, Enterococcus faecalis, MRSA sensitive to daptomycin, linezolid, vancomycin, TMP SMX - patient had purulent vaginal discharge - 40 mEq potassium and 2 g of magnesium administered 09/28 - monitor calcium, received 1 dose of calcitonin on 10/04. Discontinued half NS 10/06 - repeat urine culture 10/07 shows <1 lac yeast ENDO Hypertriglyceridemia, TG 623 09/04, 320 at 09/15 Likely due to propofol, discontinued propofol Obesity - Continue Atorvastatin 40 mg ID Polysubstance use - Infectious disease consulted, continue management as above - Per patient's daughter, patient uses amphetamine, marijuana, smokes cigarettes - HIV testing negative - Hepatitis panel negative Hematology Lower extremity DVT - Ultrasound Doppler of lower extremities 08/15 shows nonocclusive DVT of the left popliteal vein - hold Lovenox 100 mg b.i.d. - discontinue Lovenox prior to tracheostomy LINES ETT, intubated on 09/02/2024, reintubated 10/04 IV access Left upper arm PICC line, placed on 09/13 Betancourt changed 10/07 Drips: Versed 12 Propofol 15 Levophed 4 from 6 Fentanyl 250 Last bowel movement 10/09 Nutrition Jevity 40 mL/hour Goals of care/advance care planning; FULL CODE; discussed on for 24 minutes. PUD prophylaxis; hold therapeutic Lovenox DVT prophylaxis; pantoprazole 40 mg IV daily Case discussed with Dr. Pinon. Tracheostomy likely on 10/12. Hold Lovenox starting 10/10. DC vancomycin. Plan discussed with the patient's daughter over the bedside for more than 50 minutes, code status full code Critical care time including review of chart, discussion with the family, excluding procedures: 47 minutes Plan discussed with: Patient My Orders My Orders Orders - NAN AMAYA RESIDENT Procedure Category Date Status Time Chest Xray 1 View XY 10/11/24 Resulted 07:50 Stool Occult Blood LAB 10/11/24 Logged 07:50 Dietary Evaluation Review Comments: 1. Consider EN/TPN if NPO >7days 2. Continue plan of care Expected Outcomes/Goals: 1. Pt will meet >75% of estimated needs within 2-3 days Date of Service: Oct 11, 2024 Billing Provider: DANE PINON MD Common Visit Codes: 12623-[id number] CARE 30-74 MIN NAN AMAYA RESIDENT Oct 11, 2024 16:00 DANE PINON MD Oct 12, 2024 15:28
--- NOTE | 2024-10-11 20:01 | DVHPN2 ---
Progress Note - Dictate Date Seen: Oct 11, 2024 Has the PT tested + for MRSA If YES, has PT been informed?: Yes Medical Necessity Reason Pt with a Central, PICC or Fol: Yes The following are medically ne: PICC Line, Betancourt Catheter Reason for betancourt catheter: Strict I&O Subjective She is sedated and intubated on mechanical ventilation. No new acute complaints noted. Patient placed on CPAP. Hemoglobin steadily dropping. White count trending down, currently at 10.4 09/18, Chest x-ray: There are low lung volumes. Support lines and tubes appear unchanged in satisfactory position. Small bilateral pleural effusions with mild pulmonary vascular congestion. No pneumothorax. 09/20 Chest x-ray continues to show multifocal airspace disease. vital signs Vital Sign Date Time Temp Pulse Resp B/P (MAP) Pulse Ox O2 Delivery O2 Flow Rate FiO2 10/11/24 18:40 91 21 139/56 (83) 100 30 10/11/24 18:00 Mechanical Ventilator+ 10/11/24 16:00 98.2 98.2 Total Intake and Output 10/10/24 10/10/24 10/11/24 15:00 23:00 07:00 Intake Total 1106 ml 1162.50 ml 1082.5 ml Output Total 1450 ml 1550 ml Balance 1106 ml -287.50 ml -467.5 ml medications Current Medications Medications Dose Ordered Sig/Acacia Route Start Time Stop Time Status Last Admin Dose Admin Pantoprazole Sodium 40 mg DAILY IV 09/04/24 10:00 10/11/24 08:29 40 MG Sodium Chloride 10 ml QSHIFT@10,22 IV 09/13/24 22:00 10/11/24 08:29 10 ML Albuterol 2.5 mg Q6HPRN PRN NEB 09/21/24 19:00 10/11/24 18:51 2.5 MG Ipratropium [place] 0.5 mg Q6HPRN PRN NEB 09/21/24 19:00 10/11/24 18:51 0.5 MG Midazolam HCl 50 ml @ 1 mls/hr Q24H IV 09/22/24 19:45 10/11/24 18:27 12 MLS/HR Enteral Nutritional Formula 1,000 ml 30ML/HR GT 09/23/24 12:30 10/11/24 16:37 1,000 ML Potassium Chloride/Sodium Chloride 1,000 ml @ 50 mls/hr Q20H IV 09/25/24 12:00 Cancel Acetaminophen 650 mg Q6HP PRN GT 09/30/24 11:45 10/07/24 22:10 650 MG Norepinephrine Bitartrate 250 ml @ 3.75 mls/hr Q24H IV 09/30/24 15:15 10/10/24 13:13 3.75 MLS/HR Metoclopramide HCl 10 mg TID IV 10/01/24 18:00 10/11/24 13:55 10 MG Fentanyl Citrate 250 ml @ 2.5 mls/hr Q24H IV 10/04/24 15:00 10/11/24 12:23 25 MLS/HR Lactulose 30 ml Q4HR PO 10/05/24 14:00 10/11/24 16:36 30 ML Oseltamivir Phosphate 75 mg Q12H PO 10/06/24 20:00 10/11/24 19:59 10/11/24 08:29 75 MG Dextrose/Sodium Chloride 1,000 ml @ 75 mls/hr [id number] IV 10/08/24 20:00 10/11/24 06:18 75 MLS/HR Levofloxacin/ Dextrose 150 ml @ 100 mls/hr DAILY IV 10/10/24 10:00 10/11/24 08:29 100 MLS/HR Propofol 100 ml @ 3.531 mls/ hr Q24H IV 10/11/24 18:45 objective General: Intubated and sedated HEENT: Atraumatic,intubated Neck: No swelling Lungs: Equal air entry and clear to auscultation Cardiovascular: S1 S2 heard no murmur Abdomen: Soft nontender, no organomegaly, nondistended Neuro: sedated, unable to assess Psych: unable to assess laboratory and microbiology Laboratory Tests 10/11/24 03:00 Test 10/11/24 03:00 Range/Units Serum Glucose 97 74-106 mg/dL Assessment/Plan Patient is a 63-year-old female presented to the hospital with: Staphylococcus aureus pneumonia ( MRSA) Streptococcus Pneumoniae pneumonia Septic shock resolving bacteremia : coag neg staphylococccus Acute Respiratory Failure [requiring mechanical ventilation] severe hypoxia Metabolic acidosis FEDE Morbidly obese BMI = 40 PE history Recommendations: antibiotics review Cefepime 09/02- 09/06 Meropenem 09/03-09/05 Ceftriaxone 09/07-ongoing last given 09/18 Vancomycin 09/03- 09/11 Linezolid 09/11- ongoing - 09/17 last given overall, patient has received rx for MRSA pneumonia from 09/03 until now. total 14 days, stopped antibiotics ' monitor respiratory status is stable on vent. Blood culture:co ag neg staph, i think its contaminated. Recent on 09/07 showed no growth Pulmonary on board for vent management Corrected calcium 11.7. Pending FOBT. full code prognosis guarded crit time 35 mins spent during the encounter. Thank you for consult and for giving an opportunity to take care of this patient. Dietary Evaluation Review Comments: 1. Consider EN/TPN if NPO >7days 2. Continue plan of care Expected Outcomes/Goals: 1. Pt will meet >75% of estimated needs within 2-3 days Plan discussed with: ANGELLA Peng MD Oct 11, 2024 20:01
--- NOTE | 2024-10-11 21:46 | DVHPN2 ---
Progress Note - Dictate Date Seen: Oct 11, 2024 Has the PT tested + for MRSA If YES, has PT been informed?: Yes Medical Necessity Reason Pt with a Central, PICC or Fol: Yes The following are medically ne: PICC Line, Betancourt Catheter Reason for betancourt catheter: Strict I&O Subjective Patient was seen and evaluated in follow up in the ICU. Patient is intubated and sedated on ventilator. 30% FiO2. Electrolytes are being replaced. Chest x-ray shows multifocal airspace disease and small bilateral pleural effusions. vital signs Vital Sign Date Time Temp Pulse Resp B/P (MAP) Pulse Ox O2 Delivery O2 Flow Rate FiO2 10/11/24 21:00 74 21 108/63 (78) 93 10/11/24 20:20 30 10/11/24 20:00 Mechanical Ventilator+ 10/11/24 20:00 98.2 98.2 Total Intake and Output 10/10/24 10/10/24 10/11/24 15:00 23:00 07:00 Intake Total 1106 ml 1162.50 ml 1082.5 ml Output Total 1450 ml 1550 ml Balance 1106 ml -287.50 ml -467.5 ml medications Current Medications Medications Dose Ordered Sig/Acacia Route Start Time Stop Time Status Last Admin Dose Admin Pantoprazole Sodium 40 mg DAILY IV 09/04/24 10:00 10/11/24 08:29 40 MG Sodium Chloride 10 ml QSHIFT@10,22 IV 09/13/24 22:00 10/11/24 08:29 10 ML Albuterol 2.5 mg Q6HPRN PRN NEB 09/21/24 19:00 10/11/24 18:51 2.5 MG Ipratropium [place] 0.5 mg Q6HPRN PRN NEB 09/21/24 19:00 10/11/24 18:51 0.5 MG Midazolam HCl 50 ml @ 1 mls/hr Q24H IV 09/22/24 19:45 10/11/24 18:27 12 MLS/HR Enteral Nutritional Formula 1,000 ml 30ML/HR GT 09/23/24 12:30 10/11/24 16:37 1,000 ML Potassium Chloride/Sodium Chloride 1,000 ml @ 50 mls/hr Q20H IV 09/25/24 12:00 Cancel Acetaminophen 650 mg Q6HP PRN GT 09/30/24 11:45 10/07/24 22:10 650 MG Norepinephrine Bitartrate 250 ml @ 3.75 mls/hr Q24H IV 09/30/24 15:15 10/10/24 13:13 3.75 MLS/HR Metoclopramide HCl 10 mg TID IV 10/01/24 18:00 10/11/24 13:55 10 MG Fentanyl Citrate 250 ml @ 2.5 mls/hr Q24H IV 10/04/24 15:00 10/11/24 12:23 25 MLS/HR Lactulose 30 ml Q4HR PO 10/05/24 14:00 10/11/24 16:36 30 ML Dextrose/Sodium Chloride 1,000 ml @ 75 mls/hr [id number] IV 10/08/24 20:00 10/11/24 06:18 75 MLS/HR Levofloxacin/ Dextrose 150 ml @ 100 mls/hr DAILY IV 10/10/24 10:00 10/11/24 08:29 100 MLS/HR Propofol 100 ml @ 3.531 mls/ hr Q24H IV 10/11/24 18:45 objective GENERAL: Intubated on ventilator. Morbidly obese. LUNGS: Decreased breath sounds. CARDIOVASCULAR: Heart sounds are good. ABDOMEN: Soft. Morbid pannus limited physical palpation. SKIN: Multiple scars to abdomen. laboratory and microbiology Laboratory Tests 10/11/24 03:00 Test 10/11/24 03:00 Range/Units Serum Glucose 97 74-106 mg/dL Problem List Septic shock. Acute on chronic respiratory failure. NSTEMI type II secondary to above. Rule out structural heart disease. Prolonged QT interval. Morbid obesity, Class 3. Influenza B Assessment/Plan Continued all current supportive medical care. Lactulose. IV antibiotics as ordered. GI prophylactics. Vasopressors for hemodynamic support. Nebulized breathing treatments. Additional plan as per the hospital course. Critical care time of 45 minutes provided to include time spent evaluation of patient at bedside, when appropriate patient/family education for diagnosis, treatment plan, review of pertinent medical information and discussion of care with specialty providers and PCP. Mechanical ventilator parameters, treatment and adjustments have personally been reviewed by me and treatment plan by music cataloguer has also been reviewed. Dietary Evaluation Review Comments: 1. Consider EN/TPN if NPO >7days 2. Continue plan of care Expected Outcomes/Goals: 1. Pt will meet >75% of estimated needs within 2-3 days Plan discussed with: Other RELL STEWART MD Oct 11, 2024 21:46
[2024-10-11] MEDS: PROPOFOL 100 ML IV SCH (22:18)
[2024-10-12] VITALS (103 sets, daily range): BP systolic 86–146; BP diastolic 52–99; PULSE 62–120; RESP 8–22; TEMP 97.9–98.4; O2SAT 84–99
[2024-10-12 04:09] LABS: Basophils # (auto) 0.1 10 ^3/uL (0-0.2); Basophils % (auto) 1.1 % (0.0-2.0); Eosinophils # (auto) 0.2 10 ^3/uL (0-0.8); Eosinophils % (auto) 2.4 % (0.0-7.0); Hematocrit 30.4 % (36.0-46.0); Lymphocytes # (auto) 1.8 10 ^3/uL (0.4-5.4); Lymphocytes % (auto) 22.3 % (10.0-50.0); Mean Corpuscular Hgb Conc. 32.8 g/dL (32.0-36.0); Mean Corpuscular Volume 88.4 fL (80.0-100.0); Monocytes % (auto) 12.4 % (0.0-12.0); Neutrophils # (auto) 4.9 10 ^3/uL (1.6-8.6); Neutrophils % (auto) 61.8 % (37.0-80.0); Nucleated Red Blood Cells % 0.1 %; Platelet Count (auto) 338 10^3/uL (140-450); Red Blood Cells 3.44 10^6/uL (4.0-5.20); Red Cell Distribution Width 14.3 % (11.8-14.3); White Blood Cell 7.9 10^3/uL (4.4-10.8)
[2024-10-12 04:30] LABS: Alanine Aminotransferase 16 U/L (7-40); Albumin 2.7 g/dL (3.2-4.8); Alkaline Phosphatase 97 U/L (46-116); Anion Gap 6 (5-15); Aspartate Aminotransferase 17 U/L (13-40); BUN/Creatinine Ratio 9.6 (10.0-20.0); Bilirubin, Total 0.2 mg/dL (0.2-1.0); Blood Urea Nitrogen 5 mg/dL (9-23); Calcium 10.7 mg/dL (8.7-10.4); Carbon Dioxide 27 mmol/L (20-31); Chloride 108 mmol/L (98-107); Glucose 100 mg/dL (74-106); Magnesium 1.7 mg/dL (1.6-2.6); Sodium 141 mmol/L (136-145)
[2024-10-12 04:31] LABS: Total Protein 4.9 g/dL (5.7-8.2)
--- NOTE | 2024-10-12 05:04 | DVH ---
CHEST RADIOGRAPH Indication: Follow up Technique: Single frontal view of the chest was obtained COMPARISON: XY CHEST XRAY 1 VIEW on DOS: 10/11/24, XY CHEST XRAY 1 VIEW on DOS: 10/09/24, XY CHEST XR AY 1 VIEW on DOS: 10/08/24, XY CHEST PORTABLE on DOS: 10/07/24, XY CHEST PORTABLE on DOS: 10/06/24, X Y CHEST XRAY 1 VIEW on DOS: 10/11/24 FINDINGS: Lines and Tubes: Endotracheal tube and enteric catheter in satisfactory position. Lungs: Multifocal airspace disease. Pleura: Small bilateral pleural effusions. No pneumothorax. Cardiomediastinal contours: Unremarkable Bones: Unremarkable IMPRESSION: Lines and tubes in satisfactory position. No significant interval change.
[2024-10-12] MEDS: LIDOCAINE 1% HCL (LOCAL ANESTH.) INJ 20ML MDV ONE (07:07)
[2024-10-12 07:33] LABS: Base Excess 0.5 mmol/L (-2.0-3.0)
[2024-10-12] MEDS ORDERED: ceFAZolin 1GM VL ONE (07:56)
--- NOTE | 2024-10-12 08:11 | DVHPN2 ---
Progress Note - Dictate Date Seen: Oct 12, 2024 Has the PT tested + for MRSA If YES, has PT been informed?: Yes Medical Necessity Reason Pt with a Central, PICC or Fol: Yes The following are medically ne: PICC Line, Betancourt Catheter Reason for betancourt catheter: Strict I&O Subjective Patient underwent tracheostomy tube placement today. WBC is WNL. Hemoglobin steadily dropping. vital signs Vital Sign Date Time Temp Pulse Resp B/P (MAP) Pulse Ox O2 Delivery O2 Flow Rate FiO2 10/12/24 06:45 70 21 102/61 (75) 91 10/12/24 06:00 Mechanical Ventilator+ 30 10/12/24 04:00 98.4 98.4 Total Intake and Output 10/11/24 10/11/24 10/12/24 15:00 23:00 07:00 Intake Total 1378 ml 1096.715 ml 1155.401 ml Output Total 1150 ml 1050 ml Balance 1378 ml -53.285 ml 105.401 ml medications Current Medications Medications Dose Ordered Sig/[place] Route Start Time Stop Time Status Last Admin Dose Admin Pantoprazole Sodium 40 mg DAILY IV 09/04/24 10:00 10/11/24 08:29 40 MG Sodium Chloride 10 ml QSHIFT@ IV 09/13/24 22:00 10/11/24 22:19 10 ML Albuterol 2.5 mg Q6HPRN PRN NEB 09/21/24 19:00 10/11/24 22:12 2.5 MG Ipratropium [place] 0.5 mg Q6HPRN PRN NEB 09/21/24 19:00 10/11/24 22:12 0.5 MG Midazolam HCl 50 ml @ 1 mls/hr Q24H IV 09/22/24 19:45 10/12/24 03:16 12 MLS/HR Enteral Nutritional Formula 1,000 ml 30ML/HR GT 09/23/24 12:30 10/11/24 16:37 1,000 ML Potassium Chloride/Sodium Chloride 1,000 ml @ 50 mls/hr Q20H IV 09/25/24 12:00 Cancel Acetaminophen 650 mg Q6HP PRN GT 09/30/24 11:45 10/07/24 22:10 650 MG Norepinephrine Bitartrate 250 ml @ 3.75 mls/hr Q24H IV 09/30/24 15:15 10/10/24 13:13 3.75 MLS/HR Metoclopramide HCl 10 mg TID IV 10/01/24 18:00 10/12/24 05:47 10 MG Fentanyl Citrate 250 ml @ 2.5 mls/hr Q24H IV 10/04/24 15:00 10/11/24 22:32 25 MLS/HR Lactulose 30 ml Q4HR PO 10/05/24 14:00 10/11/24 22:18 30 ML Dextrose/Sodium Chloride 1,000 ml @ 75 mls/hr [id number] IV 10/08/24 20:00 10/12/24 01:52 75 MLS/HR Levofloxacin/ Dextrose 150 ml @ 100 mls/hr DAILY IV 10/10/24 10:00 10/11/24 08:29 100 MLS/HR Propofol 100 ml @ 3.531 mls/ hr Q24H IV 10/11/24 18:45 10/12/24 05:58 10.593 MLS/HR objective General: Morbidly obese, afebrile, palor, mucosae are moist, dilated and sluggish light reflex Respiratory: Right-sided crepitations heard, saturating 96% on FiO2 of 40%. Cardiovascular: Regular S1 and S2. No murmurs, gallops or rubs. No JVD elevation. Lower and upper extremity 1+ edema noticed. Abdomen: Abdomen is soft, normal bowel sounds, multiple ventral hernia seen, right-sided dressing removed, no drainage noticed. Stage II decubitus ulcer seen with overlying erythema but no drainage noticed. Midline scar seen. Rectal exam completed, decreased tone, no masses felt, mucoid secretions. Genitourinary: Betancourt catheter seen MSK/skin: Skin is dry and warm Neurological: Pupils are isocoric and reactive. laboratory and microbiology Laboratory Tests 10/12/24 03:11 Test 10/12/24 03:11 Range/Units Serum Glucose 100 74-106 mg/dL Assessment/Plan Patient is a 63-year-old female presented to the hospital with: Staphylococcus aureus pneumonia ( MRSA) Streptococcus Pneumoniae pneumonia Septic shock resolving bacteremia : coag neg staphylococccus Acute Respiratory Failure [requiring mechanical ventilation] severe hypoxia Metabolic acidosis FEDE Morbidly obese BMI = 40 PE history Recommendations: antibiotics review Cefepime 09/02- 09/06 Meropenem 09/03-09/05 Ceftriaxone 09/07-ongoing last given 09/18 Vancomycin 09/03- 09/11 Linezolid 09/11- ongoing - 09/17 last given overall, patient has received rx for MRSA pneumonia from 09/03 until now. total 14 days, stopped antibiotics ' monitor respiratory status is stable on vent. Blood culture:co ag neg staph, i think its contaminated. Recent on 09/07 showed no growth Pulmonary on board for vent management Corrected calcium 10.7. Pending FOBT. full code prognosis guarded crit time 35 mins spent during the encounter. Thank you for consult and for giving an opportunity to take care of this patient. Dietary Evaluation Review Comments: 1. Consider EN/TPN if NPO >7days 2. Continue plan of care Expected Outcomes/Goals: 1. Pt will meet >75% of estimated needs within 2-3 days Plan discussed with: ANGELLA Peng MD Oct 12, 2024 08:11
[2024-10-12] MEDS ORDERED: ONDANSETRON HCL 4 MG/2 ML VIAL ONE (08:17)
[2024-10-12] MEDS ORDERED: DexAMETHasone SOD PHOS 10MG/1ML VIAL INJ ONE (08:17)
[2024-10-12] MEDS: MAGNESIUM SULFATE 1GM/100ML 100 ML IV ONE (08:47)
--- NOTE | 2024-10-12 09:00 | DVHOP2 ---
Operative Report - 2 Report Details Date: 10/12/24 Preop Diagnosis: Respiratory failure Postop Diagnosis: Same Surgeon: Tomy You MD Oil Heater Operator: None Anesthesiologist: Jose Gil CRNA Anesthesia: General Drains: [place]iley [id number] tracheostomy tube Consent: The surgery and its risks including but not limited to potentially life- threatening infection and bleeding, possible perioperative DE or stroke were explained to the patient's daughter. All questions were answered to her satisfaction. She expressed verbal understanding and wished to proceed with the surgery for her mother. Complications: None Estimated Blood Loss: 5 mL Fluids: 200 mL Name of Procedure Performed Tracheostomy tube placement Procedure Details Procedure Details: After induction of general anesthesia, patient's anterior neck was prepped and draped in standard surgical fashion. A small transverse incision was made alf between the cricoid cartilage and the sternal notch. Incision extended through the soft tissue through the platysma muscles down to the strap muscles. The strap muscles were divided in midline gaining access to the isthmus of the thyroid gland. The isthmus of the thyroid gland was then divided gaining access to the anterior lumen of the trachea. Ventilation was then temporarily held an endotracheal tube cuff was deflated. Upside-down T-incision was made through the 1st and the 2nd tracheal rings gaining into the lumen of the trachea. There was lot of mucus within the lumen which was suctioned. [place]iley [id number] tracheostomy tube was easily inserted into the tracheal lumen and the balloon was inflated. Patient was quickly placed back on the ventilator with good return of CO2. Interrupted 3-0 Vicryl sutures were used to reapproximate the platysmal muscle around the tube. Skin incision was then closed using interrupted 4-0 Monocryl sutures. Surgical site was cleaned and dried and dressings were applied. Sponge, needle, instrument count at the end the case were reported to be correct by the nursing staff. The patient tolerated procedure well and was transferred back to ICU in guarded condition. Condition Guarded Disposition Still a Patient TOMY YOU MD Oct 12, 2024 09:00
[2024-10-12] MEDS ORDERED: ENOXAPARIN SOD 100 MG/1 ML SYRINGE SC SCH (11:45)
[2024-10-12] MEDS ORDERED: Jevity 1.2 Cal/Fiber 1 Liter GT SCH (13:00)
--- NOTE | 2024-10-12 17:54 | DVHPNRES ---
Progress Note Date Seen: Oct 12, 2024 Resident Creating Document: NAN AMAYA RESIDENT Has the PT tested + for MRSA If YES, has PT been informed?: Yes Medical Necessity Reason Pt with a Central, PICC or Fol: Yes The following are medically ne: PICC Line, Betancourt Catheter Reason for betancourt catheter: Strict I&O Subjective Review of Systems This is a 63-year-old female patient with PMHx of PE in 2015, multiple abdominal surgeries including hernia and bowel obstruction, lasts hernia surgery [place] [address] Anaya, right distal ureteral calculus in February 2024, AKA, rib fractures, chronic nicotine dependence in polysubstance use including methamphetamine and cannabis presented to the ER with a chief complaint of shortness of breaths. She was successfully intubated on 09/02. Per patient's daughter, patient became short of breath and febrile at 102.7 F, and therefore they had to call [facility]. Patient was saturating at 70% and therefore the patient was brought to the ER. She was intubated once before 4 years back after abdominal surgery at [facility] where she experienced difficult extubation. Patient is a nonsmoker for more than 50 years, currently smokes more than 1 pack a day. 09/05 - 2 small granulating wounds on abdomen are suture granulomas, sutures removed by surgeon 09/28 - Patient seen and examined at the bedside. Overnight patient became bradycardic, pulse was 30s, telemetry reviewed rhythm was regular, likely sinus bradycardia, sedation was turned off and the patient's pulse went up to 58 beats per minute which is her baseline. No bowel movements overnight. Patient made around 950 cc of urine. 40 mEq of potassium supplement and 2 g magnesium supplemented. Continue IV vancomycin and levofloxacin. Id on board. CPAP trial ended early as the patient became tachypneic with RR of 46/min. Raised Jevity 1.2 to 40 mL/hour. 09/29 - patient is sedated and mechanically intubated. Overnight patient made 450 mL of urine. ABG in the a.m. shows respiratory alkalosis, CO2 decreased from 38-32 and bicarb decreased from 25-22. Corrected calcium 12.3. PTH level 19. Chest x-ray shows left-sided aeration is better than as compared to when on admission. Patient underwent CPAP trial which and that as the patient became tachypneic. Discussed the option of tracheostomy with patient's daughter Toshia, she said that the family and herself does not want tracheostomy and did not think that patient would want tracheostomy. Patient's family requesting for bronchoscopy. Dr. Luis consulted for bronchoscopy per patient's family request. Bronchoscopy performed 09/29 shows Right lower lobe atelectasis due to mucous plugging. Mucous plugging from R6-R10 K 2.9, 80 mEq replenished. Mag 1.7, 2 g replenished. 09/30-patient seen and examined at bedside. 625 mL of urine overnight. 2 L of urine during the day of 09/29. No bowel movement. Lactulose started. T-max of 99.6 overnight. DC Levaquin today started meropenem. Family meeting for over 50 minutes today. Family declined tracheostomy, per daughter the patient would be very upset on tracheostomy and it would be a burden on her. CPAP trial earlier next week. 10/01 - patient seen and examined at bedside. DC Diflucan. Started Reglan IV 10 mg TID, started Colace and senna, lactulose increased to b.i.d.. Chest x-ray shows worsening pulmonary vascular congestion and bilateral effusion. Last bowel movement was on 23 September. Cumulative intake output less 4 L. ABG shows metabolic alkalosis with respiratory acidosis. Consider Diamox if patient becomes more alkalotic. 10/04 - over night T-max 99.7, pulse 110, blood pressure elevated to 181/103. Corrected calcium 13.2. Patient received 1 dose of calcitonin SC. Patient was tachypneic on BiPAP, rate in the range of 47-51. Patient was altered. Called family, per Toshia - family decided to go for tracheostomy, consult received for re-intubation. Patient reintubated at 12:10 p.m. ETT retracted 2 cm. Chest x- ray in a.m.. Surgeon consulted for tracheostomy. Planning tracheostomy on 07 October. Initiated half NS at 75 cc/hour. DC meropenem, switched to ceftriaxone and continue vancomycin. ABG showed compensated metabolic alkalosis. Last BM on . 10/05 - overnight low-grade fever 100.1 at the time of intubation, urine output 675 mL. No bowel movement. Increase lactulose to q.4. Increased dose of senna. On propofol 5, fentanyl 250, Versed 12 and Levophed4. 250 bolus of NS administered. ABG shows metabolic alkalosis with respiratory alkalosis. Respiratory rate decreased from 22-20. Corrected calcium 12.4 downtrending. 10/06 - patient is T-max 100.2 F. COVID, influenza, UA ordered. Tylenol 650 mg started. Discontinued half NS. Lasix 20 mg IV given in the a.m. urine output 500 mL post Lasix. Lasix 20 mg IV in the p.m.. NPO starting midnight. Holding Lovenox for tracheostomy. Repeat blood culture ordered. 10/07-patient is having temperature 101.1 F. tracheostomy postponed. WBC count elevated from 11-12. Change Betancourt. Repeat urine culture. Started meropenem. Levophed requirement increased from 2 to 12 Repeat respiratory culture, blood culture, urine culture preliminary are negative. 10/08-overnight patient was febrile at 100.8 F. WBC increased to 17 from 12. Continuing with vancomycin. Repeat preliminary blood, urine, respiratory culture negative. DC meropenem. Started Levaquin. Corrected calcium 12.1. Started D5 half NS. Restarted Lovenox 100 mg q.12. Trach planned for Friday. Hold Lovenox starting 10/10. RR increased to 21 10/11 - patient seen and examined at the bedside. Hemoglobin steadily dropping. Occult Blood ordered. Continue D5 half NS. Corrected calcium 11.7. DC vancomycin. Repeat influenza testing negative. Rectal exam completed, decreased tone, no masses felt, mucoid secretions. 10/12 - patient underwent tracheostomy placement. Patient requiring increased oxygen supplementation FiO2 60% with tracheostomy. DC half NS. DC Levaquin tomorrow if no signs of SIRS. Starting Lovenox tomorrow. Patient had overnight small bowel movement. Objective vital signs Vital Sign Date Time Temp Pulse Resp B/P (MAP) Pulse Ox O2 Delivery O2 Flow Rate FiO2 10/12/24 17:30 91 19 125/73 (90) 88 10/12/24 16:03 60 10/12/24 16:00 Mechanical Ventilator+ 0 Trach Collar 10/12/24 12:00 98.0 98.0 Total Intake and Output 10/11/24 10/11/24 10/12/24 15:00 23:00 07:00 Intake Total 1378 ml 1096.715 ml 1281.744 ml Output Total 1150 ml 1050 ml Balance 1378 ml -53.285 ml 231.744 ml medications Current Medications Medications Dose Ordered Sig/Acacia Route Start Time Stop Time Status Last Admin Dose Admin Pantoprazole Sodium 40 mg DAILY IV 09/04/24 10:00 10/12/24 09:07 40 MG Sodium Chloride 10 ml QSHIFT@10,22 IV 09/13/24 22:00 10/12/24 09:07 10 ML Albuterol 2.5 mg Q6HPRN PRN NEB 09/21/24 19:00 10/12/24 13:09 2.5 MG Ipratropium [place] 0.5 mg Q6HPRN PRN NEB 09/21/24 19:00 10/12/24 13:09 0.5 MG Midazolam HCl 50 ml @ 1 mls/hr Q24H IV 09/22/24 19:45 10/12/24 17:20 8 MLS/HR Potassium Chloride/Sodium Chloride 1,000 ml @ 50 mls/hr Q20H IV 09/25/24 12:00 Cancel Acetaminophen 650 mg Q6HP PRN GT 09/30/24 11:45 10/07/24 22:10 650 MG Norepinephrine Bitartrate 250 ml @ 3.75 mls/hr Q24H IV 09/30/24 15:15 10/10/24 13:13 3.75 MLS/HR Metoclopramide HCl 10 mg TID IV 10/01/24 18:00 10/12/24 14:05 10 MG Fentanyl Citrate 250 ml @ 2.5 mls/hr Q24H IV 10/04/24 15:00 10/12/24 09:27 25 MLS/HR Lactulose 30 ml Q4HR PO 10/05/24 14:00 10/12/24 14:05 30 ML Levofloxacin/ Dextrose 150 ml @ 100 mls/hr DAILY IV 10/10/24 10:00 10/12/24 09:07 100 MLS/HR Propofol 100 ml @ 3.531 mls/ hr Q24H IV 10/11/24 18:45 10/12/24 12:18 10.593 MLS/HR Enoxaparin Sodium 100 mg BID SC 10/13/24 10:00 Enteral Nutritional Formula 1,000 ml 30ML/HR GT 10/12/24 13:00 Examination Obese female patient lying in bed, in no acute distress RASS -4 General: Morbidly obese, afebrile, palor, mucosae are moist, dilated and sluggish light reflex Cardiovascular: Regular S1 and S2. No murmurs, gallops or rubs. No JVD elevation. Lower and upper extremity 1+ edema noticed. Respiratory: Right-sided crepitations heard, saturating 96% on FiO2 of 40%. Abdomen: Abdomen is soft, normal bowel sounds, multiple ventral hernia seen, right-sided dressing removed, no drainage noticed. Stage II decubitus ulcer seen with overlying erythema but no drainage noticed. Midline scar seen. Rectal exam completed, decreased tone, no masses felt, mucoid secretions. Genitourinary: Betancourt catheter seen MSK/skin: Skin is dry and warm Neurological: Pupils are isocoric and reactive. laboratory and microbiology Laboratory Tests 10/12/24 03:11 Test 10/12/24 03:11 Range/Units Serum Glucose 100 74-106 mg/dL Microbiology Date/Time Source Procedure Growth Status 10/07/24 17:31 Urine - Betancourt Port Urine Culture - Final Presumptive Juju albicans Complete 10/06/24 14:50 Blood Blood Culture - Final NO GROWTH AFTER 5 DAYS OF INCUBATION. Complete 10/04/24 12:40 Sputum Gram Stain - Final Complete 10/04/24 12:40 Sputum Respiratory Culture - Final Complete 09/26/24 13:00 Abdomen Gram Stain - Final Complete 09/26/24 13:00 Wound Culture - Final Methicillin Resistant S.aureus Complete 09/06/24 13:00 Vaginal Vaginal Culture - Final Enterococcus faecalis Methicillin Resistant S.aureus Complete Labs and/or images reviewed: Labs reviewed by me, Image(s) reviewed by me Problem List/Assessment/Plan Problem List/Assessment/Plan NEUROLOGY Acute metabolic encephalopathy likely due to septic shock - patient is sedated and mechanically ventilated, RASS -2 CARDIOVASCULAR Septic shock NSTEMI likely type 2 secondary to septic shock Probable right ventricular failure Prolonged QTC-resolved - cardiology recommended conservative management - echocardiogram shows dyskinesis of IVC, dilated RV and dilated RA. RV failure. Mild LVH and mild LV diastolic dysfunction with EF 65 % - blood culture 09/02 showed Staph hominis sensitive to vancomycin - repeat blood culture 09/11 showed Staphylococcus epidermidis sensitive to Cipro, clinda, linezolid, vancomycin - repeat blood culture 09/24 shows no growth - repeat blood culture 10/06 shows no growth - discontinued furosemide 40 mg IV daily starting 09/27 till 10/04 - Lasix 20 mg b.i.d. given 10/06 RESPIRATORY Acute hypoxic respiratory failure secondary to probable community-acquired pneumonia due to MRSA and S pneumo status post tracheostomy 10/12 Advanced COPD Chronic nicotine dependence Influenza B infection - patient was intubated and mechanically ventilated starting 09/02 - bronchoscopy completed 09/07, results showed MRSA positive - repeat bronchoscopy 09/08, showed comparatively lesser secretions - sputum culture 09/02 showed MRSA, strep pneumo - bronchial wash specimen collected 09/07 showed MRSA - repeat respiratory culture 09/22 showed MRSA and presumtive Juju albicans - received cefepime from 09/02 to 09/06 - received meropenem 11/03 to 09/05, - received vancomycin from 09/03 to 09/11 - received ceftriaxone 2 g daily from 09/13 to 09/19 - received linezolid from 09/11 to 09/17 - continue albuterol and ipratropium q.6 hour p.r.n. - ongoing antibiotics: Continue Levaquin starting 10/08. - vancomycin 09/27 till 10/11 and started oseltamivir 75 mg b.i.d. 10/06 till 10/11 - discontinued IV meropenem started from 09/30 till 10/04 - discontinued Diflucan-patient received from 09/27 till 10/01 - discontinued Levaquin 09/30 - 09/28 and 09/29 CPAP trial ended early as the patient became tachypneic with RR of 46/min. - 10/04- patient tachypneic on BiPAP, reintubated per family's request. Family considering tracheostomy. Consent signed. Tracheostomy 10/12 - Dr. Luis consulted for bronchoscopy. Bronchoscopy performed 09/29 shows mucus plugs in the left upper lobe. - respiratory culture preliminary shows no organism. GI History of multiple surgeries secondary to hernia and bowel obstruction Multiple ventral wall hernias Possible bowel obstruction Transaminitis secondary to septic shock Rhabdomyolysis likely secondary to immobilization Surgeon consulted-recommended conservative management, small varices could not be performed at this moment due to respiratory status of the patient Continue IV pantoprazole 40 mg daily Discontinued senna b.i.d. Lactulose increased to q.4 10/05 /KIDNEY FEDE, likely secondary to VMN - resolved Probable pelvic inflammatory disease Hyponatremia-resolved Hypomagnesemia Hypercalcemia -corrected calcium 12.1, discontinued D5 half NS 10/08 - creatinine downtrending - creatinine kinase downtrended from 8215 to 77 - nephrology consulted, last hemodialysis session was performed on 09/10 - urine bacterial culture 09/02 showed less than 50160 CFU of coagulase-negative Staphylococcus - vaginal culture 09/06 showed coagulase-negative Staphylococcus, Enterococcus faecalis, MRSA sensitive to daptomycin, linezolid, vancomycin, TMP SMX - patient had purulent vaginal discharge - 40 mEq potassium and 2 g of magnesium administered 09/28 - monitor calcium, received 1 dose of calcitonin on 10/04. Discontinued half NS 10/06 - repeat urine culture 10/07 shows <1 lac yeast ENDO Hypertriglyceridemia, TG 623 09/04, 320 at 09/15 Likely due to propofol, discontinued propofol Obesity - Continue Atorvastatin 40 mg ID Polysubstance use - Infectious disease consulted, continue management as above - Per patient's daughter, patient uses amphetamine, marijuana, smokes cigarettes - HIV testing negative - Hepatitis panel negative Hematology Lower extremity DVT - Ultrasound Doppler of lower extremities 08/15 shows nonocclusive DVT of the left popliteal vein - restart Lovenox 100 mg b.i.d. 10/13 LINES ETT, intubated on 09/02/2024, reintubated 10/04 IV access Left upper arm PICC line, placed on 09/13 Betancourt changed 10/07 Drips: Versed 12 Propofol 15 Levophed 2 from 4 Fentanyl 250 Last bowel movement 10/11 Nutrition Jevity 40 mL/hour Goals of care/advance care planning; FULL CODE; discussed on for 24 minutes. PUD prophylaxis; hold therapeutic Lovenox DVT prophylaxis; pantoprazole 40 mg IV daily Case discussed with Dr. Pinon. director of physiotherapy services consulted for LTAC placement. Plan discussed with the patient's daughter over the bedside for more than 50 minutes, code status full code Critical care time including review of chart, discussion with the family, excluding procedures: 49 minutes Plan discussed with: Patient, Daughter (Over the phone) My Orders My Orders Orders - NAN AMAYA RESIDENT Procedure Category Date Status Time Propofol (Diprivan) PHA 10/11/24 In Process 18:45 * Safety Physician CONS 10/12/24 Transmitted Consult Enoxaparin Sodium PHA 10/13/24 In Process (Lovenox) 10:00 Nutritional PHA 10/12/24 In Process Supplements (Jevity 13:00 Dietary Evaluation Review Comments: 1. Consider EN/TPN if NPO >7days 2. Continue plan of care Expected Outcomes/Goals: 1. Pt will meet >75% of estimated needs within 2-3 days Date of Service: Oct 12, 2024 Billing Provider: DANE PINON MD Common Visit Codes: 35582-[id number] CARE 30-74 MIN NAN AMAYA RESIDENT Oct 12, 2024 17:54 DANE PINON MD Oct 13, 2024 14:02
--- NOTE | 2024-10-12 19:27 | DVHPN2 ---
Progress Note - Dictate Date Seen: Oct 12, 2024 Has the PT tested + for MRSA If YES, has PT been informed?: Yes Medical Necessity Reason Pt with a Central, PICC or Fol: Yes The following are medically ne: PICC Line, Betancourt Catheter Reason for betancourt catheter: Strict I&O Subjective Patient was seen and evaluated in follow up in the ICU. Patient is intubated and sedated on ventilator. 30% FiO2. Patietn underwent tracheostomy tube placement. WBC is WNL. Chest x-ray shows multifocal airspace disease, small bilateral pleural effusions. vital signs Vital Sign Date Time Temp Pulse Resp B/P (MAP) Pulse Ox O2 Delivery O2 Flow Rate FiO2 10/12/24 18:35 96 21 107/74 (85) 90 100 10/12/24 18:35 Mechanical Ventilator 10/12/24 18:00 0 10/12/24 12:00 98.0 98.0 Total Intake and Output 10/11/24 10/11/24 10/12/24 14:59 22:59 06:59 Intake Total 1382 ml 1095.372 ml 1281.744 ml Output Total 1150 ml 1050 ml Balance 1382 ml -54.628 ml 231.744 ml medications Current Medications Medications Dose Ordered Sig/Acacia Route Start Time Stop Time Status Last Admin Dose Admin Pantoprazole Sodium 40 mg DAILY IV 09/04/24 10:00 10/12/24 09:07 40 MG Sodium Chloride 10 ml QSHIFT@10,22 IV 09/13/24 22:00 10/12/24 09:07 10 ML Albuterol 2.5 mg Q6HPRN PRN NEB 09/21/24 19:00 10/12/24 18:35 2.5 MG Ipratropium [place] 0.5 mg Q6HPRN PRN NEB 09/21/24 19:00 10/12/24 18:35 0.5 MG Midazolam HCl 50 ml @ 1 mls/hr Q24H IV 09/22/24 19:45 10/12/24 17:20 8 MLS/HR Potassium Chloride/Sodium Chloride 1,000 ml @ 50 mls/hr Q20H IV 09/25/24 12:00 Cancel Acetaminophen 650 mg Q6HP PRN GT 09/30/24 11:45 10/07/24 22:10 650 MG Norepinephrine Bitartrate 250 ml @ 3.75 mls/hr Q24H IV 09/30/24 15:15 10/10/24 13:13 3.75 MLS/HR Metoclopramide HCl 10 mg TID IV 10/01/24 18:00 10/12/24 14:05 10 MG Fentanyl Citrate 250 ml @ 2.5 mls/hr Q24H IV 10/04/24 15:00 10/12/24 09:27 25 MLS/HR Lactulose 30 ml Q4HR PO 10/05/24 14:00 10/12/24 18:00 30 ML Levofloxacin/ Dextrose 150 ml @ 100 mls/hr DAILY IV 10/10/24 10:00 10/12/24 09:07 100 MLS/HR Propofol 100 ml @ 3.531 mls/ hr Q24H IV 10/11/24 18:45 10/12/24 12:18 10.593 MLS/HR Enoxaparin Sodium 100 mg BID SC 10/13/24 10:00 Enteral Nutritional Formula 1,000 ml 30ML/HR GT 10/12/24 13:00 objective GENERAL: Intubated on ventilator. Morbidly obese. LUNGS: Decreased breath sounds. CARDIOVASCULAR: Heart sounds are good. ABDOMEN: Soft. Morbid pannus limited physical palpation. SKIN: Multiple scars to abdomen. laboratory and microbiology Laboratory Tests 10/12/24 03:11 Test 10/12/24 03:11 Range/Units Serum Glucose 100 74-106 mg/dL Problem List Septic shock. Acute on chronic respiratory failure. NSTEMI type II secondary to above. Rule out structural heart disease. Prolonged QT interval. Morbid obesity, Class 3. Influenza B Assessment/Plan Continued all current supportive medical care. Lactulose. IV antibiotics as ordered. GI prophylactics. Vasopressors for hemodynamic support. Nebulized breathing treatments. Additional plan as per the hospital course. Critical care time of 45 minutes provided to include time spent evaluation of patient at bedside, when appropriate patient/family education for diagnosis, treatment plan, review of pertinent medical information and discussion of care with specialty providers and PCP. Mechanical ventilator parameters, treatment and adjustments have personally been reviewed by me and treatment plan by home theater specialist has also been reviewed. Dietary Evaluation Review Comments: 1. Consider EN/TPN if NPO >7days 2. Continue plan of care Expected Outcomes/Goals: 1. Pt will meet >75% of estimated needs within 2-3 days Plan discussed with: Other RELL STEWART MD Oct 12, 2024 19:26
[2024-10-13] VITALS (101 sets, daily range): BP systolic 81–141; BP diastolic 44–80; PULSE 74–107; RESP 10–25; TEMP 98.3–98.8; O2SAT 92–100
[2024-10-13 03:26] LABS: Basophils # (auto) 0 10 ^3/uL (0-0.2); Basophils % (auto) 0.1 % (0.0-2.0); Eosinophils # (auto) 0 10 ^3/uL (0-0.8); Hematocrit 31.4 % (36.0-46.0); Hemoglobin 10.6 g/dL (12.2-16.2); Lymphocytes # (auto) 1.2 10 ^3/uL (0.4-5.4); Lymphocytes % (auto) 11.9 % (10.0-50.0); Mean Corpuscular Hemoglobin 29.1 pg (28.0-32.0); Mean Corpuscular Hgb Conc. 33.7 g/dL (32.0-36.0); Mean Corpuscular Volume 86.5 fL (80.0-100.0); Monocytes # (auto) 0.8 10 ^3/uL (0-1.3); Monocytes % (auto) 7.7 % (0.0-12.0); Neutrophils # (auto) 8.2 10 ^3/uL (1.6-8.6); Neutrophils % (auto) 80.3 % (37.0-80.0); Platelet Count (auto) 373 10^3/uL (140-450); Red Blood Cells 3.63 10^6/uL (4.0-5.20); Red Cell Distribution Width 13.9 % (11.8-14.3); White Blood Cell 10.2 10^3/uL (4.4-10.8)
[2024-10-13 03:52] LABS: Alanine Aminotransferase 20 U/L (7-40); Alkaline Phosphatase 111 U/L (46-116); Anion Gap 9 (5-15); Aspartate Aminotransferase 23 U/L (13-40); BUN/Creatinine Ratio 12.7 (10.0-20.0); Carbon Dioxide 26 mmol/L (20-31); Glucose 102 mg/dL (74-106); Magnesium 1.7 mg/dL (1.6-2.6); Potassium 3.8 mmol/L (3.5-5.1); Sodium 142 mmol/L (136-145)
[2024-10-13 04:08] LABS: Albumin 3.1 g/dL (3.2-4.8); Bilirubin, Total 0.3 mg/dL (0.2-1.0); Blood Urea Nitrogen 7 mg/dL (9-23); Chloride 107 mmol/L (98-107); Total Protein 5.5 g/dL (5.7-8.2)
--- NOTE | 2024-10-13 06:00 | DVH ---
CHEST RADIOGRAPH Indication: Follow up Technique: Single frontal view of the chest was obtained Comparison: XY CHEST XRAY 1 VIEW on DOS: 10/12/24, XY CHEST XRAY 1 VIEW on DOS: 10/11/24, XY CHEST XR AY 1 VIEW on DOS: 10/09/24 IMPRESSION: The cardiac silhouette is enlarged. There are small bilateral pleural effusions with moderate pulmon pedro vascular congestion, similar to prior examination. No discrete pneumothorax. Tracheostomy tube sweeney s been placed . Left PICC line tip in the region of the superior vena cava. Endotracheal tube beyond the gastroesophageal junction.
[2024-10-13 09:08] LABS: Base Excess 2.5 mmol/L (-2.0-3.0)
[2024-10-13] MEDS: ENOXAPARIN SOD 100 MG/1 ML SYRINGE SC SCH (09:24)
[2024-10-13] MEDS: FUROSEMIDE 20 MG/2 ML VIAL IV ONE (11:48)
[2024-10-13] MEDS ORDERED: ENOXAPARIN SOD 100 MG/1 ML SYRINGE SC SCH (14:00)
--- NOTE | 2024-10-13 15:35 | DVHPN2 ---
Progress Note - Dictate Date Seen: Oct 13, 2024 Has the PT tested + for MRSA If YES, has PT been informed?: Yes Medical Necessity Reason Pt with a Central, PICC or Fol: Yes The following are medically ne: PICC Line, Betancourt Catheter Reason for betancourt catheter: Strict I&O Subjective Patient underwent tracheostomy tube placement on 10/12. Tracheostomy site bleeding, Lovenox held today. Hemoglobin steadily dropping. vital signs Vital Sign Date Time Temp Pulse Resp B/P (MAP) Pulse Ox O2 Delivery O2 Flow Rate FiO2 10/13/24 14:30 74 16 95/52 (66) 95 10/13/24 14:30 60 10/13/24 14:00 Mechanical Ventilator+ 0 Trach Collar 10/13/24 12:30 98.3 98.3 Total Intake and Output 10/12/24 10/12/24 10/13/24 15:00 23:00 07:00 Intake Total 913.994 ml 403.903 ml 293.593 ml Output Total 2000 ml 550 ml Balance 913.994 ml -1596.097 ml -256.407 ml medications Current Medications Medications Dose Ordered Sig/Acacia Route Start Time Stop Time Status Last Admin Dose Admin Pantoprazole Sodium 40 mg DAILY IV 09/04/24 10:00 10/13/24 09:24 40 MG Sodium Chloride 10 ml QSHIFT@ IV 09/13/24 22:00 10/13/24 09:25 10 ML Albuterol 2.5 mg Q6HPRN PRN NEB 09/21/24 19:00 10/13/24 02:06 2.5 MG Ipratropium [place] 0.5 mg Q6HPRN PRN NEB 09/21/24 19:00 10/13/24 02:06 0.5 MG Midazolam HCl 50 ml @ 1 mls/hr Q24H IV 09/22/24 19:45 10/13/24 10:18 8 MLS/HR Potassium Chloride/Sodium Chloride 1,000 ml @ 50 mls/hr Q20H IV 09/25/24 12:00 Cancel Acetaminophen 650 mg Q6HP PRN GT 09/30/24 11:45 10/07/24 22:10 650 MG Metoclopramide HCl 10 mg TID IV 10/01/24 18:00 10/13/24 06:17 10 MG Fentanyl Citrate 250 ml @ 2.5 mls/hr Q24H IV 10/04/24 15:00 10/12/24 19:29 20 MLS/HR Lactulose 30 ml Q4HR PO 10/05/24 14:00 10/13/24 09:24 30 ML Enoxaparin Sodium 100 mg BID SC 10/13/24 10:00 Enteral Nutritional Formula 1,000 ml 30ML/HR GT 10/12/24 13:00 objective General: Intubated and sedated HEENT: Atraumatic,intubated Neck: No swelling Lungs: Equal air entry and clear to auscultation Cardiovascular: S1 S2 heard no murmur Abdomen: Soft nontender, no organomegaly, nondistended Neuro: sedated, unable to assess Psych: unable to assess laboratory and microbiology Laboratory Tests 10/13/24 03:00 Test 10/13/24 03:00 Range/Units Serum Glucose 102 74-106 mg/dL Assessment/Plan Patient is a 63-year-old female presented to the hospital with: Staphylococcus aureus pneumonia ( MRSA) Streptococcus Pneumoniae pneumonia Septic shock resolving bacteremia : coag neg staphylococccus Acute Respiratory Failure [requiring mechanical ventilation] severe hypoxia Metabolic acidosis FEDE Morbidly obese BMI = 40 PE history Recommendations: antibiotics review Cefepime 09/02- 09/06 Meropenem 09/03-09/05 Ceftriaxone 09/07-ongoing last given 09/18 Vancomycin 09/03- 09/11 Linezolid 09/11- ongoing - 09/17 last given overall, patient has received rx for MRSA pneumonia from 09/03 until now. total 14 days, stopped antibiotics ' monitor respiratory status is stable on vent. Blood culture:co ag neg staph, i think its contaminated. Recent on 09/07 showed no growth Pulmonary on board for vent management Corrected calcium 11.0. Pending FOBT. full code prognosis guarded crit time 35 mins spent during the encounter. Thank you for consult and for giving an opportunity to take care of this patient. Dietary Evaluation Review Comments: 1. Consider EN/TPN if NPO >7days 2. Continue plan of care Expected Outcomes/Goals: 1. Pt will meet >75% of estimated needs within 2-3 days Plan discussed with: ANGELLA Peng MD Oct 13, 2024 15:35
--- NOTE | 2024-10-13 18:08 | DVHPNRES ---
Progress Note Date Seen: Oct 13, 2024 Resident Creating Document: NAN AMAYA RESIDENT Has the PT tested + for MRSA If YES, has PT been informed?: Yes Medical Necessity Reason Pt with a Central, PICC or Fol: Yes The following are medically ne: PICC Line, Betancourt Catheter Reason for betancourt catheter: Strict I&O Subjective Review of Systems This is a 63-year-old female patient with PMHx of PE in 2015, multiple abdominal surgeries including hernia and bowel obstruction, lasts hernia surgery [place] [address] Anaya, right distal ureteral calculus in February 2024, AKA, rib fractures, chronic nicotine dependence in polysubstance use including methamphetamine and cannabis presented to the ER with a chief complaint of shortness of breaths. She was successfully intubated on 09/02. Per patient's daughter, patient became short of breath and febrile at 102.7 F, and therefore they had to call [facility]. Patient was saturating at 70% and therefore the patient was brought to the ER. She was intubated once before 4 years back after abdominal surgery at [facility] where she experienced difficult extubation. Patient is a nonsmoker for more than 50 years, currently smokes more than 1 pack a day. 09/05 - 2 small granulating wounds on abdomen are suture granulomas, sutures removed by surgeon 09/28 - Patient seen and examined at the bedside. Overnight patient became bradycardic, pulse was 30s, telemetry reviewed rhythm was regular, likely sinus bradycardia, sedation was turned off and the patient's pulse went up to 58 beats per minute which is her baseline. No bowel movements overnight. Patient made around 950 cc of urine. 40 mEq of potassium supplement and 2 g magnesium supplemented. Continue IV vancomycin and levofloxacin. Id on board. CPAP trial ended early as the patient became tachypneic with RR of 46/min. Raised Jevity 1.2 to 40 mL/hour. 09/29 - patient is sedated and mechanically intubated. Overnight patient made 450 mL of urine. ABG in the a.m. shows respiratory alkalosis, CO2 decreased from 38-32 and bicarb decreased from 25-22. Corrected calcium 12.3. PTH level 19. Chest x-ray shows left-sided aeration is better than as compared to when on admission. Patient underwent CPAP trial which and that as the patient became tachypneic. Discussed the option of tracheostomy with patient's daughter Toshia, she said that the family and herself does not want tracheostomy and did not think that patient would want tracheostomy. Patient's family requesting for bronchoscopy. Dr. Luis consulted for bronchoscopy per patient's family request. Bronchoscopy performed 09/29 shows Right lower lobe atelectasis due to mucous plugging. Mucous plugging from R6-R10 K 2.9, 80 mEq replenished. Mag 1.7, 2 g replenished. 09/30-patient seen and examined at bedside. 625 mL of urine overnight. 2 L of urine during the day of 09/29. No bowel movement. Lactulose started. T-max of 99.6 overnight. DC Levaquin today started meropenem. Family meeting for over 50 minutes today. Family declined tracheostomy, per daughter the patient would be very upset on tracheostomy and it would be a burden on her. CPAP trial earlier next week. 10/01 - patient seen and examined at bedside. DC Diflucan. Started Reglan IV 10 mg TID, started Colace and senna, lactulose increased to b.i.d.. Chest x-ray shows worsening pulmonary vascular congestion and bilateral effusion. Last bowel movement was on 23 September. Cumulative intake output less 4 L. ABG shows metabolic alkalosis with respiratory acidosis. Consider Diamox if patient becomes more alkalotic. 10/04 - over night T-max 99.7, pulse 110, blood pressure elevated to 181/103. Corrected calcium 13.2. Patient received 1 dose of calcitonin SC. Patient was tachypneic on BiPAP, rate in the range of 47-51. Patient was altered. Called family, per Toshia - family decided to go for tracheostomy, consult received for re-intubation. Patient reintubated at 12:10 p.m. ETT retracted 2 cm. Chest x- ray in a.m.. Surgeon consulted for tracheostomy. Planning tracheostomy on 07 October. Initiated half NS at 75 cc/hour. DC meropenem, switched to ceftriaxone and continue vancomycin. ABG showed compensated metabolic alkalosis. Last BM on . 10/05 - overnight low-grade fever 100.1 at the time of intubation, urine output 675 mL. No bowel movement. Increase lactulose to q.4. Increased dose of senna. On propofol 5, fentanyl 250, Versed 12 and Levophed4. 250 bolus of NS administered. ABG shows metabolic alkalosis with respiratory alkalosis. Respiratory rate decreased from 22-20. Corrected calcium 12.4 downtrending. 10/06 - patient is T-max 100.2 F. COVID, influenza, UA ordered. Tylenol 650 mg started. Discontinued half NS. Lasix 20 mg IV given in the a.m. urine output 500 mL post Lasix. Lasix 20 mg IV in the p.m.. NPO starting midnight. Holding Lovenox for tracheostomy. Repeat blood culture ordered. 10/07-patient is having temperature 101.1 F. tracheostomy postponed. WBC count elevated from 11-12. Change Betancourt. Repeat urine culture. Started meropenem. Levophed requirement increased from 2 to 12 Repeat respiratory culture, blood culture, urine culture preliminary are negative. 10/08-overnight patient was febrile at 100.8 F. WBC increased to 17 from 12. Continuing with vancomycin. Repeat preliminary blood, urine, respiratory culture negative. DC meropenem. Started Levaquin. Corrected calcium 12.1. Started D5 half NS. Restarted Lovenox 100 mg q.12. Trach planned for Friday. Hold Lovenox starting 10/10. RR increased to 21 10/11 - patient seen and examined at the bedside. Hemoglobin steadily dropping. Occult Blood ordered. Continue D5 half NS. Corrected calcium 11.7. DC vancomycin. Repeat influenza testing negative. Rectal exam completed, decreased tone, no masses felt, mucoid secretions. Patient made 1000 cc of urine in the daytime. 10/12 - patient underwent tracheostomy placement. Patient requiring increased oxygen supplementation FiO2 60% with tracheostomy. DC half NS. DC Levaquin tomorrow if no signs of SIRS. Starting Lovenox tomorrow. Patient had overnight small bowel movement. 10/13 - patient seen and examined at bedside. She is off Levophed. Only on Versed and fentanyl. Patient seen crying. ABG shows respiratory alkalosis with metabolic alkalosis. FiO2 decreased to 30% and respiratory rate decreased today to 16. Continue to down titrate sedation. Overnight: 500 cc of urine. Administered 20 IV Lasix. Objective vital signs Vital Sign Date Time Temp Pulse Resp B/P (MAP) Pulse Ox O2 Delivery O2 Flow Rate FiO2 10/13/24 17:30 86 18 117/58 (77) 96 10/13/24 16:00 Mechanical Ventilator+ 0 30 Trach Collar 30 10/13/24 12:30 98.3 98.3 Total Intake and Output 10/12/24 10/12/24 10/13/24 15:00 23:00 07:00 Intake Total 913.994 ml 403.903 ml 293.593 ml Output Total 2000 ml 550 ml Balance 913.994 ml -1596.097 ml -256.407 ml medications Current Medications Medications Dose Ordered Sig/Acacia Route Start Time Stop Time Status Last Admin Dose Admin Pantoprazole Sodium 40 mg DAILY IV 09/04/24 10:00 10/13/24 09:24 40 MG Sodium Chloride 10 ml QSHIFT@ IV 09/13/24 22:00 10/13/24 09:25 10 ML Albuterol 2.5 mg Q6HPRN PRN NEB 09/21/24 19:00 10/13/24 02:06 2.5 MG Ipratropium [place] 0.5 mg Q6HPRN PRN NEB 09/21/24 19:00 10/13/24 02:06 0.5 MG Midazolam HCl 50 ml @ 1 mls/hr Q24H IV 09/22/24 19:45 10/13/24 10:18 8 MLS/HR Potassium Chloride/Sodium Chloride 1,000 ml @ 50 mls/hr Q20H IV 09/25/24 12:00 Cancel Acetaminophen 650 mg Q6HP PRN GT 09/30/24 11:45 10/07/24 22:10 650 MG Metoclopramide HCl 10 mg TID IV 10/01/24 18:00 10/13/24 15:20 10 MG Fentanyl Citrate 250 ml @ 2.5 mls/hr Q24H IV 10/04/24 15:00 10/13/24 16:26 25 MLS/HR Lactulose 30 ml Q4HR PO 10/05/24 14:00 10/13/24 17:16 30 ML Enoxaparin Sodium 100 mg BID SC 10/13/24 10:00 Enteral Nutritional Formula 1,000 ml 30ML/HR GT 10/12/24 13:00 Examination Obese female patient lying in bed, RASS -2, tracheostomy. General: Morbidly obese, afebrile, palor, mucosae are moist, dilated and sluggish light reflex Cardiovascular: Regular S1 and S2. No murmurs, gallops or rubs. No JVD elevation. Lower and upper extremity 1+ edema noticed. Respiratory: Right-sided crepitations heard, saturating 96% on FiO2 of 30%. Tracheostomy site clean. Abdomen: Abdomen is soft, distended, normal bowel sounds, multiple ventral hernia seen, right-sided dressing removed, no drainage noticed. Stage II decubitus ulcer seen with overlying erythema but no drainage noticed. Midline scar seen. Rectal exam completed, decreased tone, no masses felt, mucoid secretions. Genitourinary: Betancourt catheter seen MSK/skin: Skin is dry and warm Neurological: Pupils are isocoric and reactive. laboratory and microbiology Laboratory Tests 10/13/24 17:22 10/13/24 03:00 Test 10/13/24 03:00 Range/Units Serum Glucose 102 74-106 mg/dL Microbiology Date/Time Source Procedure Growth Status 10/07/24 17:31 Urine - Betancourt Port Urine Culture - Final Presumptive Juju albicans Complete 10/06/24 14:50 Blood Blood Culture - Final NO GROWTH AFTER 5 DAYS OF INCUBATION. Complete 10/04/24 12:40 Sputum Gram Stain - Final Complete 10/04/24 12:40 Sputum Respiratory Culture - Final Complete 09/26/24 13:00 Abdomen Gram Stain - Final Complete 09/26/24 13:00 Wound Culture - Final Methicillin Resistant S.aureus Complete 09/06/24 13:00 Vaginal Vaginal Culture - Final Enterococcus faecalis Methicillin Resistant S.aureus Complete Labs and/or images reviewed: Labs reviewed by me, Image(s) reviewed by me Problem List/Assessment/Plan Problem List/Assessment/Plan NEUROLOGY Acute metabolic encephalopathy likely due to septic shock - patient is sedated and mechanically ventilated, RASS -2 CARDIOVASCULAR Septic shock NSTEMI likely type 2 secondary to septic shock Probable right ventricular failure Prolonged QTC-resolved - cardiology recommended conservative management - echocardiogram shows dyskinesis of IVC, dilated RV and dilated RA. RV failure. Mild LVH and mild LV diastolic dysfunction with EF 65 % - blood culture 09/02 showed Staph hominis sensitive to vancomycin - repeat blood culture 09/11 showed Staphylococcus epidermidis sensitive to Cipro, clinda, linezolid, vancomycin - repeat blood culture 09/24 shows no growth - repeat blood culture 10/06 shows no growth - discontinued furosemide 40 mg IV daily starting 09/27 till 10/04 - Lasix 20 mg b.i.d. given 10/06 and 10/13 RESPIRATORY Acute hypoxic respiratory failure secondary to probable community-acquired pneumonia due to MRSA and S pneumo status post tracheostomy 10/12 Advanced COPD Chronic nicotine dependence Influenza B infection Respiratory alkalosis with metabolic alkalosis - patient was intubated and mechanically ventilated starting 09/02 - bronchoscopy completed 09/07, results showed MRSA positive - repeat bronchoscopy 09/08, showed comparatively lesser secretions - sputum culture 09/02 showed MRSA, strep pneumo - bronchial wash specimen collected 09/07 showed MRSA - repeat respiratory culture 09/22 showed MRSA and presumtive Juju albicans - received cefepime from 09/02 to 09/06 - received meropenem 11/03 to 09/05, - received vancomycin from 09/03 to 09/11 - received ceftriaxone 2 g daily from 09/13 to 09/19 - received linezolid from 09/11 to 09/17 - continue albuterol and ipratropium q.6 hour p.r.n. - ongoing antibiotics: None - Discontinued Levaquin starting 10/08 till 10/13. - vancomycin 09/27 till 10/11 and started oseltamivir 75 mg b.i.d. 10/06 till 10/11 - discontinued IV meropenem started from 09/30 till 10/04 - discontinued Diflucan-patient received from 09/27 till 10/01 - discontinued Levaquin 09/30 - 09/28 and 09/29 CPAP trial ended early as the patient became tachypneic with RR of 46/min. - 10/04- patient tachypneic on BiPAP, reintubated per family's request. Family considering tracheostomy. Consent signed. Tracheostomy 10/12 - Dr. Luis consulted for bronchoscopy. Bronchoscopy performed 09/29 shows mucus plugs in the left upper lobe. - respiratory culture preliminary shows no organism. GI History of multiple surgeries secondary to hernia and bowel obstruction Multiple ventral wall hernias Possible bowel obstruction Transaminitis secondary to septic shock Rhabdomyolysis likely secondary to immobilization Surgeon consulted-recommended conservative management, small varices could not be performed at this moment due to respiratory status of the patient Continue IV pantoprazole 40 mg daily Discontinued senna b.i.d. Lactulose increased to q.4 10/05 /KIDNEY FEDE, likely secondary to VMN - resolved Probable pelvic inflammatory disease Hyponatremia-resolved Hypomagnesemia Hypercalcemia -corrected calcium 12.1, discontinued D5 half NS 10/08 - creatinine downtrending - creatinine kinase downtrended from 8215 to 77 - nephrology consulted, last hemodialysis session was performed on 09/10 - urine bacterial culture 09/02 showed less than 28296 CFU of coagulase-negative Staphylococcus - vaginal culture 09/06 showed coagulase-negative Staphylococcus, Enterococcus faecalis, MRSA sensitive to daptomycin, linezolid, vancomycin, TMP SMX - patient had purulent vaginal discharge - 40 mEq potassium and 2 g of magnesium administered 09/28 - monitor calcium, received 1 dose of calcitonin on 10/04. Discontinued half NS 10/06 - repeat urine culture 10/07 shows <1 lac yeast ENDO Hypertriglyceridemia, TG 623 09/04, 320 at 09/15 Likely due to propofol, discontinued propofol Obesity - Continue Atorvastatin 40 mg ID Polysubstance use - Infectious disease consulted, continue management as above - Per patient's daughter, patient uses amphetamine, marijuana, smokes cigarettes - HIV testing negative - Hepatitis panel negative Hematology Lower extremity DVT - Ultrasound Doppler of lower extremities 08/15 shows nonocclusive DVT of the left popliteal vein - restart Lovenox 100 mg b.i.d. 10/14 LINES ETT, intubated on 09/02/2024, reintubated 10/04 IV access Left upper arm PICC line, placed on 09/13 Betancourt changed 10/07 Drips: Versed 8 Propofol 0 Levophed 0 from 4 Fentanyl 225 Last bowel movement 10/11 Nutrition Jevity 40 mL/hour Goals of care/advance care planning; FULL CODE; discussed on for 24 minutes. PUD prophylaxis; re starte 10/14 DVT prophylaxis; pantoprazole 40 mg IV daily Case discussed with Dr. Pinon. banking services advisor consulted for LTAC placement. Plan discussed with the patient's daughter over the bedside for more than 50 minutes, code status full code Critical care time including review of chart, discussion with the family, excluding procedures: 49 minutes Plan discussed with: Patient, Daughter (Over the phone ) My Orders My Orders Orders - NAN AMAYA RESIDENT Procedure Category Date Status Time Abg W/ Co-Ox RT 10/13/24 Logged 04:00 Chest Portable XY 10/13/24 Resulted 04:00 Ventilator Orders RT 10/13/24 Transmitted 11:01 Ventilator Orders RT 10/13/24 Transmitted 12:09 Dietary Evaluation Review Comments: 1. Consider EN/TPN if NPO >7days 2. Continue plan of care Expected Outcomes/Goals: 1. Pt will meet >75% of estimated needs within 2-3 days Date of Service: Oct 13, 2024 Billing Provider: DANE PINON MD Common Visit Codes: 21414-[id number] CARE 30-74 MIN NAN AMAYA Oct 13, 2024 18:08 DANE PINON MD Oct 14, 2024 10:00
[2024-10-13] MEDS: POTASSIUM CHL 20MEQ/100ML 100 ML IV ONE (18:15)
[2024-10-13] MEDS: MAGNESIUM SULFATE 1GM/100ML 100 ML IV ONE (19:51)
[2024-10-13 20:07] LABS: Base Excess 3.1 mmol/L (-2.0-3.0)
[2024-10-13] MEDS: POTASSIUM CHL 20MEQ/100ML 100 ML IV SCH (20:29)
--- NOTE | 2024-10-13 22:07 | DVHPN2 ---
Progress Note - Dictate Date Seen: Oct 13, 2024 Has the PT tested + for MRSA If YES, has PT been informed?: Yes Medical Necessity Reason Pt with a Central, PICC or Fol: Yes The following are medically ne: PICC Line, Betancourt Catheter Reason for betancourt catheter: Strict I&O Subjective Patient was seen and evaluated in follow up in the ICU. Patient is intubated and sedated on ventilator. 60% FiO2. There is bleeding noted at the trach site. ABG shows respiratory alkalosis with metabolic alkalosis. Chest x-ray shows small bilateral pleural effusions with moderate pulmonary vascular congestion. vital signs Vital Sign Date Time Temp Pulse Resp B/P (MAP) Pulse Ox O2 Delivery O2 Flow Rate FiO2 10/13/24 11:48 114/58 10/13/24 10:45 97 22 97 60 10/13/24 10:00 Mechanical Ventilator+ 0 Trach Collar 10/13/24 08:00 98.5 98.5 Total Intake and Output 10/12/24 10/12/24 10/13/24 15:00 23:00 07:00 Intake Total 913.994 ml 403.903 ml 293.593 ml Output Total 2000 ml 550 ml Balance 913.994 ml -1596.097 ml -256.407 ml medications Current Medications Medications Dose Ordered Sig/[place] Route Start Time Stop Time Status Last Admin Dose Admin Pantoprazole Sodium 40 mg DAILY IV 09/04/24 10:00 10/13/24 09:24 40 MG Sodium Chloride 10 ml QSHIFT@10,22 IV 09/13/24 22:00 10/13/24 09:25 10 ML Albuterol 2.5 mg Q6HPRN PRN NEB 09/21/24 19:00 10/13/24 02:06 2.5 MG Ipratropium [place] 0.5 mg Q6HPRN PRN NEB 09/21/24 19:00 10/13/24 02:06 0.5 MG Midazolam HCl 50 ml @ 1 mls/hr Q24H IV 09/22/24 19:45 10/13/24 10:18 8 MLS/HR Potassium Chloride/Sodium Chloride 1,000 ml @ 50 mls/hr Q20H IV 09/25/24 12:00 Cancel Acetaminophen 650 mg Q6HP PRN GT 09/30/24 11:45 10/07/24 22:10 650 MG Norepinephrine Bitartrate 250 ml @ 3.75 mls/hr Q24H IV 09/30/24 15:15 10/10/24 13:13 3.75 MLS/HR Metoclopramide HCl 10 mg TID IV 10/01/24 18:00 10/13/24 06:17 10 MG Fentanyl Citrate 250 ml @ 2.5 mls/hr Q24H IV 10/04/24 15:00 10/12/24 19:29 20 MLS/HR Lactulose 30 ml Q4HR PO 10/05/24 14:00 10/13/24 09:24 30 ML Propofol 100 ml @ 3.531 mls/ hr Q24H IV 10/11/24 18:45 10/12/24 12:18 10.593 MLS/HR Enoxaparin Sodium 100 mg BID SC 10/13/24 10:00 Enteral Nutritional Formula 1,000 ml 30ML/HR GT 10/12/24 13:00 objective GENERAL: Intubated on ventilator. Morbidly obese. LUNGS: Decreased breath sounds. CARDIOVASCULAR: Heart sounds are good. ABDOMEN: Soft. Morbid pannus limited physical palpation. SKIN: Multiple scars to abdomen. laboratory and microbiology Laboratory Tests 10/13/24 03:00 Test 10/13/24 03:00 Range/Units Serum Glucose 102 74-106 mg/dL Problem List Septic shock. Acute on chronic respiratory failure. NSTEMI type II secondary to above. Rule out structural heart disease. Prolonged QT interval. Morbid obesity, Class 3. Influenza B Assessment/Plan Continued all current supportive medical care. Lactulose. IV antibiotics as ordered. GI prophylactics. Vasopressors for hemodynamic support. Nebulized breathing treatments. Additional plan as per the hospital course. Critical care time of 45 minutes provided to include time spent evaluation of patient at bedside, when appropriate patient/family education for diagnosis, treatment plan, review of pertinent medical information and discussion of care with specialty providers and PCP. Mechanical ventilator parameters, treatment and adjustments have personally been reviewed by me and treatment plan by steel crane operator has also been reviewed. Dietary Evaluation Review Comments: 1. Consider EN/TPN if NPO >7days 2. Continue plan of care Expected Outcomes/Goals: 1. Pt will meet >75% of estimated needs within 2-3 days Plan discussed with: RELL Valle MD Oct 13, 2024 12:01
[2024-10-14] VITALS (90 sets, daily range): BP systolic 100–169; BP diastolic 54–101; PULSE 82–118; RESP 11–34; TEMP 98.8–101.6; O2SAT 87–100
[2024-10-14 03:46] LABS: Basophils # (auto) 0.1 10 ^3/uL (0-0.2); Basophils % (auto) 1.1 % (0.0-2.0); Eosinophils # (auto) 0.2 10 ^3/uL (0-0.8); Eosinophils % (auto) 1.4 % (0.0-7.0); Hematocrit 31.2 % (36.0-46.0); Lymphocytes % (auto) 16.2 % (10.0-50.0); Mean Corpuscular Hemoglobin 28.2 pg (28.0-32.0); Mean Corpuscular Hgb Conc. 32.1 g/dL (32.0-36.0); Monocytes # (auto) 1.6 10 ^3/uL (0-1.3); Monocytes % (auto) 13.1 % (0.0-12.0); Neutrophils # (auto) 8.2 10 ^3/uL (1.6-8.6); Neutrophils % (auto) 68.2 % (37.0-80.0); Nucleated Red Blood Cells % 0.1 %; Platelet Count (auto) 363 10^3/uL (140-450); Red Blood Cells 3.54 10^6/uL (4.0-5.20); Red Cell Distribution Width 14.5 % (11.8-14.3); White Blood Cell 12.1 10^3/uL (4.4-10.8)
[2024-10-14 03:54] LABS: Sodium 141 mmol/L (136-145)
[2024-10-14 03:55] LABS: Anion Gap 8 (5-15); Carbon Dioxide 25 mmol/L (20-31)
[2024-10-14 04:00] LABS: Glucose 100 mg/dL (74-106)
[2024-10-14 04:01] LABS: BUN/Creatinine Ratio 12.7 (10.0-20.0); Magnesium 1.8 mg/dL (1.6-2.6)
[2024-10-14 04:02] LABS: Blood Urea Nitrogen 8 mg/dL (9-23); Chloride 108 mmol/L (98-107); Potassium 3.4 mmol/L (3.5-5.1)
[2024-10-14] MEDS: POTASSIUM CHL 20MEQ/100ML 100 ML IV SCH (08:13)
[2024-10-14 08:56] LABS: Base Excess -0.8 mmol/L (-2.0-3.0)
[2024-10-14] MEDS: MAGNESIUM SULFATE 1GM/100ML 100 ML IV ONE (09:23)
[2024-10-14] MEDS ORDERED: MORPHINE SULFATE INJ 2 MG/ml SYRG IV PRN (10:00)
--- NOTE | 2024-10-14 11:36 | DVH ---
Date: 10/14/2024 10:58 AM Examination: XY KUB ABDOMEN SINGLE VIEW History: sbo Comparison: None TECHNIQUE: Frontal views of the abdomen was obtained. FINDINGS: Nonspecific bowel gas pattern with gaseous distended loops colon. Enteric tube tip projects over the expected region of the distal stomach. Bilateral flanks are collimated from field of view. The lung bases are unremarkable. No acute osseous abnormality identified. IMPRESSION: Nonspecific bowel gas pattern with gaseous distended loops colon. Evaluation is limited as bilateral flanks are collimated from field of view.
--- NOTE | 2024-10-14 12:14 | DVHPNRES ---
Progress Note Date Seen: Oct 14, 2024 Resident Creating Document: NAN AMAYA RESIDENT Has the PT tested + for MRSA If YES, has PT been informed?: Yes Medical Necessity Reason Pt with a Central, PICC or Fol: Yes The following are medically ne: PICC Line, Betancourt Catheter Reason for betancourt catheter: Strict I&O Subjective Review of Systems This is a 63-year-old female patient with PMHx of PE in 2015, multiple abdominal surgeries including hernia and bowel obstruction, lasts hernia surgery [place] [address] Anaya, right distal ureteral calculus in February 2024, AKA, rib fractures, chronic nicotine dependence in polysubstance use including methamphetamine and cannabis presented to the ER with a chief complaint of shortness of breaths. She was successfully intubated on 09/02. Per patient's daughter, patient became short of breath and febrile at 102.7 F, and therefore they had to call [facility]. Patient was saturating at 70% and therefore the patient was brought to the ER. She was intubated once before 4 years back after abdominal surgery at [facility] where she experienced difficult extubation. Patient is a nonsmoker for more than 50 years, currently smokes more than 1 pack a day. 09/05 - 2 small granulating wounds on abdomen are suture granulomas, sutures removed by surgeon 09/28 - Patient seen and examined at the bedside. Overnight patient became bradycardic, pulse was 30s, telemetry reviewed rhythm was regular, likely sinus bradycardia, sedation was turned off and the patient's pulse went up to 58 beats per minute which is her baseline. No bowel movements overnight. Patient made around 950 cc of urine. 40 mEq of potassium supplement and 2 g magnesium supplemented. Continue IV vancomycin and levofloxacin. Id on board. CPAP trial ended early as the patient became tachypneic with RR of 46/min. Raised Jevity 1.2 to 40 mL/hour. 09/29 - patient is sedated and mechanically intubated. Overnight patient made 450 mL of urine. ABG in the a.m. shows respiratory alkalosis, CO2 decreased from 38-32 and bicarb decreased from 25-22. Corrected calcium 12.3. PTH level 19. Chest x-ray shows left-sided aeration is better than as compared to when on admission. Patient underwent CPAP trial which and that as the patient became tachypneic. Discussed the option of tracheostomy with patient's daughter Toshia, she said that the family and herself does not want tracheostomy and did not think that patient would want tracheostomy. Patient's family requesting for bronchoscopy. Dr. Luis consulted for bronchoscopy per patient's family request. Bronchoscopy performed 09/29 shows Right lower lobe atelectasis due to mucous plugging. Mucous plugging from R6-R10 K 2.9, 80 mEq replenished. Mag 1.7, 2 g replenished. 09/30-patient seen and examined at bedside. 625 mL of urine overnight. 2 L of urine during the day of 09/29. No bowel movement. Lactulose started. T-max of 99.6 overnight. DC Levaquin today started meropenem. Family meeting for over 50 minutes today. Family declined tracheostomy, per daughter the patient would be very upset on tracheostomy and it would be a burden on her. CPAP trial earlier next week. 10/01 - patient seen and examined at bedside. DC Diflucan. Started Reglan IV 10 mg TID, started Colace and senna, lactulose increased to b.i.d.. Chest x-ray shows worsening pulmonary vascular congestion and bilateral effusion. Last bowel movement was on 23 September. Cumulative intake output less 4 L. ABG shows metabolic alkalosis with respiratory acidosis. Consider Diamox if patient becomes more alkalotic. 10/04 - over night T-max 99.7, pulse 110, blood pressure elevated to 181/103. Corrected calcium 13.2. Patient received 1 dose of calcitonin SC. Patient was tachypneic on BiPAP, rate in the range of 47-51. Patient was altered. Called family, per Toshia - family decided to go for tracheostomy, consult received for re-intubation. Patient reintubated at 12:10 p.m. ETT retracted 2 cm. Chest x- ray in a.m.. Surgeon consulted for tracheostomy. Planning tracheostomy on 07 October. Initiated half NS at 75 cc/hour. DC meropenem, switched to ceftriaxone and continue vancomycin. ABG showed compensated metabolic alkalosis. Last BM on . 10/05 - overnight low-grade fever 100.1 at the time of intubation, urine output 675 mL. No bowel movement. Increase lactulose to q.4. Increased dose of senna. On propofol 5, fentanyl 250, Versed 12 and Levophed4. 250 bolus of NS administered. ABG shows metabolic alkalosis with respiratory alkalosis. Respiratory rate decreased from 22-20. Corrected calcium 12.4 downtrending. 10/06 - patient is T-max 100.2 F. COVID, influenza, UA ordered. Tylenol 650 mg started. Discontinued half NS. Lasix 20 mg IV given in the a.m. urine output 500 mL post Lasix. Lasix 20 mg IV in the p.m.. NPO starting midnight. Holding Lovenox for tracheostomy. Repeat blood culture ordered. 10/07-patient is having temperature 101.1 F. tracheostomy postponed. WBC count elevated from 11-12. Change Betancourt. Repeat urine culture. Started meropenem. Levophed requirement increased from 2 to 12 Repeat respiratory culture, blood culture, urine culture preliminary are negative. 10/08-overnight patient was febrile at 100.8 F. WBC increased to 17 from 12. Continuing with vancomycin. Repeat preliminary blood, urine, respiratory culture negative. DC meropenem. Started Levaquin. Corrected calcium 12.1. Started D5 half NS. Restarted Lovenox 100 mg q.12. Trach planned for Friday. Hold Lovenox starting 10/10. RR increased to 21 10/11 - patient seen and examined at the bedside. Hemoglobin steadily dropping. Occult Blood ordered. Continue D5 half NS. Corrected calcium 11.7. DC vancomycin. Repeat influenza testing negative. Rectal exam completed, decreased tone, no masses felt, mucoid secretions. Patient made 1000 cc of urine in the daytime. WBC increased to 12. 10/12 - patient underwent tracheostomy placement. Patient requiring increased oxygen supplementation FiO2 60% with tracheostomy. DC half NS. DC Levaquin tomorrow if no signs of SIRS. Starting Lovenox tomorrow. Patient had overnight small bowel movement. 10/13 - patient seen and examined at bedside. She is off Levophed. Only on Versed and fentanyl. Patient seen crying. ABG shows respiratory alkalosis with metabolic alkalosis. FiO2 decreased to 30% and respiratory rate decreased today to 16. Continue to down titrate sedation. Overnight: 500 cc of urine. Administered 20 IV Lasix. 3250 cc of urine in the day shift 10/14 - patient seen and examined. Heart rate in 100s but sinus. Continue with trach collar in a.m. and switched to went overnight. 900 mL urine out overnight. X-ray KUB shows nonspecific bowel gas pattern with a distended loops of colon. Limited study. Patient is passing flatus. Patient had a bowel movement. Objective vital signs Vital Sign Date Time Temp Pulse Resp B/P (MAP) Pulse Ox O2 Delivery O2 Flow Rate FiO2 10/14/24 10:00 105 12 147/83 (104) 95 10/14/24 10:00 Trach Collar 10 30 30 10/14/24 08:00 99.8 99.8 Total Intake and Output 10/13/24 10/13/24 10/14/24 15:00 23:00 07:00 Intake Total 284.0 ml 956.0 ml 472.5 ml Output Total 1000 ml 900 ml Balance 284.0 ml -44.0 ml -427.5 ml medications Current Medications Medications Dose Ordered Sig/Acacia Route Start Time Stop Time Status Last Admin Dose Admin Pantoprazole Sodium 40 mg DAILY IV 09/04/24 10:00 10/14/24 09:16 40 MG Albuterol 2.5 mg Q6HPRN PRN NEB 09/21/24 19:00 10/14/24 06:53 2.5 MG Ipratropium [place] 0.5 mg Q6HPRN PRN NEB 09/21/24 19:00 10/14/24 06:53 0.5 MG Midazolam HCl 50 ml @ 1 mls/hr Q24H IV 09/22/24 19:45 10/13/24 10:18 8 MLS/HR Potassium Chloride/Sodium Chloride 1,000 ml @ 50 mls/hr Q20H IV 09/25/24 12:00 Cancel Acetaminophen 650 mg Q6HP PRN GT 09/30/24 11:45 10/07/24 22:10 650 MG Metoclopramide HCl 10 mg TID IV 10/01/24 18:00 10/14/24 05:43 10 MG Lactulose 30 ml Q4HR PO 10/05/24 14:00 10/14/24 09:17 30 ML Enoxaparin Sodium 100 mg BID SC 10/13/24 10:00 10/14/24 09:16 100 MG Enteral Nutritional Formula 1,000 ml 30ML/HR GT 10/12/24 13:00 Morphine Sulfate 1 mg Q4HP PRN IV 10/14/24 10:00 Examination Obese female patient lying in bed, RASS -2, tracheostomy. General: Morbidly obese, afebrile, palor, mucosae are moist, dilated and sluggish light reflex Cardiovascular: Regular S1 and S2. No murmurs, gallops or rubs. No JVD elevation. Lower and upper extremity 1+ edema noticed. Respiratory: Right-sided crepitations heard, saturating 96% on FiO2 of 30%. Tracheostomy site clean. Abdomen: Abdomen is soft, distended, normal bowel sounds, multiple ventral hernia seen, right-sided dressing removed, no drainage noticed. Stage II decubitus ulcer seen with overlying erythema but no drainage noticed. Midline scar seen. Rectal exam completed, decreased tone, no masses felt, mucoid secretions. Genitourinary: Betancourt catheter seen MSK/skin: Skin is dry and warm Neurological: Pupils are isocoric and reactive. laboratory and microbiology Laboratory Tests 10/14/24 03:27 Test 10/14/24 03:27 Range/Units Serum Glucose 100 74-106 mg/dL Microbiology Date/Time Source Procedure Growth Status 10/07/24 17:31 Urine - Betancourt Port Urine Culture - Final Presumptive Juju albicans Complete 10/06/24 14:50 Blood Blood Culture - Final NO GROWTH AFTER 5 DAYS OF INCUBATION. Complete 10/04/24 12:40 Sputum Gram Stain - Final Complete 10/04/24 12:40 Sputum Respiratory Culture - Final Complete 09/26/24 13:00 Abdomen Gram Stain - Final Complete 09/26/24 13:00 Wound Culture - Final Methicillin Resistant S.aureus Complete 09/06/24 13:00 Vaginal Vaginal Culture - Final Enterococcus faecalis Methicillin Resistant S.aureus Complete Labs and/or images reviewed: Labs reviewed by me, Image(s) reviewed by me Problem List/Assessment/Plan Problem List/Assessment/Plan NEUROLOGY Acute metabolic encephalopathy likely due to septic shock - patient is sedated and mechanically ventilated, RASS -2 CARDIOVASCULAR Septic shock NSTEMI likely type 2 secondary to septic shock Probable right ventricular failure Prolonged QTC-resolved - cardiology recommended conservative management - echocardiogram shows dyskinesis of IVC, dilated RV and dilated RA. RV failure. Mild LVH and mild LV diastolic dysfunction with EF 65 % - blood culture 09/02 showed Staph hominis sensitive to vancomycin - repeat blood culture 09/11 showed Staphylococcus epidermidis sensitive to Cipro, clinda, linezolid, vancomycin - repeat blood culture 09/24 shows no growth - repeat blood culture 10/06 shows no growth - discontinued furosemide 40 mg IV daily starting 09/27 till 10/04 - Lasix 20 mg b.i.d. given 10/06 and 10/13 RESPIRATORY Acute hypoxic respiratory failure secondary to probable community-acquired pneumonia due to MRSA and S pneumo status post tracheostomy 10/12 Advanced COPD Chronic nicotine dependence Influenza B infection Respiratory alkalosis with metabolic alkalosis - patient was intubated and mechanically ventilated starting 09/02 - bronchoscopy completed 09/07, results showed MRSA positive - repeat bronchoscopy 09/08, showed comparatively lesser secretions - sputum culture 09/02 showed MRSA, strep pneumo - bronchial wash specimen collected 09/07 showed MRSA - repeat respiratory culture 09/22 showed MRSA and presumtive Juju albicans - received cefepime from 09/02 to 09/06 - received meropenem 11/03 to 09/05, - received vancomycin from 09/03 to 09/11 - received ceftriaxone 2 g daily from 09/13 to 09/19 - received linezolid from 09/11 to 09/17 - continue albuterol and ipratropium q.6 hour p.r.n. - ongoing antibiotics: None - Discontinued Levaquin starting 10/08 till 10/13. - vancomycin 09/27 till 10/11 and started oseltamivir 75 mg b.i.d. 10/06 till 10/11 - discontinued IV meropenem started from 09/30 till 10/04 - discontinued Diflucan-patient received from 09/27 till 10/01 - discontinued Levaquin 09/30 - 09/28 and 09/29 CPAP trial ended early as the patient became tachypneic with RR of 46/min. - 10/04- patient tachypneic on BiPAP, reintubated per family's request. Family considering tracheostomy. Consent signed. Tracheostomy 10/12 - Dr. Luis consulted for bronchoscopy. Bronchoscopy performed 09/29 shows mucus plugs in the left upper lobe. - respiratory culture preliminary shows no organism. - trach collar trial GI History of multiple surgeries secondary to hernia and bowel obstruction Multiple ventral wall hernias Possible bowel obstruction Transaminitis secondary to septic shock Rhabdomyolysis likely secondary to immobilization Surgeon consulted-recommended conservative management, small varices could not be performed at this moment due to respiratory status of the patient Continue IV pantoprazole 40 mg daily Discontinued senna b.i.d. Lactulose increased to q.4 10/05 /KIDNEY FEDE, likely secondary to VMN - resolved Probable pelvic inflammatory disease Hyponatremia-resolved Hypomagnesemia Hypercalcemia -corrected calcium 12.1, discontinued D5 half NS 10/08 - creatinine downtrending - creatinine kinase downtrended from 8215 to 77 - nephrology consulted, last hemodialysis session was performed on 09/10 - urine bacterial culture 09/02 showed less than 09265 CFU of coagulase-negative Staphylococcus - vaginal culture 09/06 showed coagulase-negative Staphylococcus, Enterococcus faecalis, MRSA sensitive to daptomycin, linezolid, vancomycin, TMP SMX - patient had purulent vaginal discharge - 40 mEq potassium and 2 g of magnesium administered 09/28 - monitor calcium, received 1 dose of calcitonin on 10/04. Discontinued half NS 10/06 - repeat urine culture 10/07 shows <1 lac yeast ENDO Hypertriglyceridemia, TG 623 09/04, 320 at 09/15 Likely due to propofol, discontinued propofol Obesity - Continue Atorvastatin 40 mg ID Polysubstance use - Infectious disease consulted, continue management as above - Per patient's daughter, patient uses amphetamine, marijuana, smokes cigarettes - HIV testing negative - Hepatitis panel negative Hematology Lower extremity DVT - Ultrasound Doppler of lower extremities 08/15 shows nonocclusive DVT of the left popliteal vein - restart Lovenox 100 mg b.i.d. 1/2 LINES ETT, intubated on 09/02/2024, reintubated 10/04 IV access Left upper arm PICC line, placed on 09/13 Betancourt changed 10/07 Drips: Versed 0 Propofol 0 Levophed 0 from Fentanyl 25 Last bowel movement 1/2 Nutrition Jevity 40 mL/hour Goals of care/advance care planning; FULL CODE; discussed on for 24 minutes. PUD prophylaxis; re starte 1/2 DVT prophylaxis; pantoprazole 40 mg IV daily Case discussed with Dr. Pinon. Possible LTAC placement tomorrow. Plan discussed with the patient's daughter over the bedside for more than 50 minutes, code status full code Critical care time including review of chart, discussion with the family, excluding procedures: 49 minutes Plan discussed with: Patient My Orders My Orders Orders - NAN AMAYA RESIDENT Procedure Category Date Status Time Abg W/ Co-Ox RT 10/13/24 Logged 18:08 * Wound Consult CONS 10/14/24 Transmitted Urine Bacterial MOISES 10/14/24 Logged Culture 06:58 Tap Water Enema ORDERS 10/14/24 Transmitted 08:49 Dietary Evaluation Review Comments: 1. Consider EN/TPN if NPO >7days 2. Continue plan of care Expected Outcomes/Goals: 1. Pt will meet >75% of estimated needs within 2-3 days Date of Service: Oct 14, 2024 Billing Provider: DANE PINON MD Common Visit Codes: [id number] CARE 30-74 MIN NAN AMAYA RESIDENT Oct 14, 2024 12:14 DANE PINON MD Oct 17, 2024 11:13
--- NOTE | 2024-10-14 16:35 | DVHPN2 ---
Progress Note - Dictate Date Seen: Oct 14, 2024 Has the PT tested + for MRSA If YES, has PT been informed?: Yes Medical Necessity Reason Pt with a Central, PICC or Fol: Yes The following are medically ne: PICC Line, Betancourt Catheter Reason for betancourt catheter: Strict I&O Subjective Patient had episodes of green emesis. She is passing flatus. X-ray KUB shows nonspecific bowel gas pattern with a distended loops of colon. Limited study. Patient underwent tracheostomy tube placement on 10/12. vital signs Vital Sign Date Time Temp Pulse Resp B/P (MAP) Pulse Ox O2 Delivery O2 Flow Rate FiO2 10/14/24 15:58 106 29 169/97 (121) 96 30 10/14/24 14:00 Mechanical Ventilator+ 0 Trach Collar 10/14/24 12:00 99.1 99.1 Total Intake and Output 10/13/24 10/13/24 10/14/24 15:00 23:00 07:00 Intake Total 284.0 ml 956.0 ml 472.5 ml Output Total 1000 ml 900 ml Balance 284.0 ml -44.0 ml -427.5 ml medications Current Medications Medications Dose Ordered Sig/Acacia Route Start Time Stop Time Status Last Admin Dose Admin Pantoprazole Sodium 40 mg DAILY IV 09/04/24 10:00 10/14/24 09:16 40 MG Albuterol 2.5 mg Q6HPRN PRN NEB 09/21/24 19:00 10/14/24 12:49 2.5 MG Ipratropium [place] 0.5 mg Q6HPRN PRN NEB 09/21/24 19:00 10/14/24 12:49 0.5 MG Midazolam HCl 50 ml @ 1 mls/hr Q24H IV 09/22/24 19:45 10/13/24 10:18 8 MLS/HR Potassium Chloride/Sodium Chloride 1,000 ml @ 50 mls/hr Q20H IV 09/25/24 12:00 Cancel Acetaminophen 650 mg Q6HP PRN GT 09/30/24 11:45 10/07/24 22:10 650 MG Metoclopramide HCl 10 mg TID IV 10/01/24 18:00 10/14/24 13:58 10 MG Lactulose 30 ml Q4HR PO 10/05/24 14:00 10/14/24 13:58 30 ML Enoxaparin Sodium 100 mg BID SC 10/13/24 10:00 10/14/24 09:16 100 MG Enteral Nutritional Formula 1,000 ml 30ML/HR GT 10/12/24 13:00 Morphine Sulfate 1 mg Q4HP PRN IV 10/14/24 10:00 objective Obese female patient lying in bed, RASS -2, tracheostomy. General: Morbidly obese, afebrile, palor, mucosae are moist, dilated and sluggish light reflex Cardiovascular: Regular S1 and S2. No murmurs, gallops or rubs. No JVD elevation. Lower and upper extremity 1+ edema noticed. Respiratory: Right-sided crepitations heard, saturating 96% on FiO2 of 30%. Tracheostomy site clean. Abdomen: Abdomen is soft, distended, normal bowel sounds, multiple ventral hernia seen, right-sided dressing removed, no drainage noticed. Stage II decubitus ulcer seen with overlying erythema but no drainage noticed. Midline scar seen. Rectal exam completed, decreased tone, no masses felt, mucoid secretions. Genitourinary: Betancourt catheter seen MSK/skin: Skin is dry and warm Neurological: Pupils are isocoric and reactive. laboratory and microbiology Laboratory Tests 10/14/24 03:27 Test 10/14/24 03:27 Range/Units Serum Glucose 100 74-106 mg/dL Assessment/Plan Patient is a 63-year-old female presented to the hospital with: Staphylococcus aureus pneumonia ( MRSA) Streptococcus Pneumoniae pneumonia Septic shock resolving bacteremia : coag neg staphylococccus Acute Respiratory Failure [requiring mechanical ventilation] severe hypoxia Metabolic acidosis FEDE Morbidly obese BMI = 40 PE history Recommendations: Antibiotics review Cefepime 09/02- 09/06 Meropenem 09/03-09/05 Ceftriaxone 09/07-ongoing last given 09/18 Vancomycin 09/03- 09/11 Linezolid 09/11- ongoing - 09/17 last given overall, patient has received rx for MRSA pneumonia from 09/03 until now. total 14 days, stopped antibiotics ' monitor respiratory status is stable on vent. Blood culture:co ag neg staph, i think its contaminated. Recent on 09/07 showed no growth Pulmonary on board for vent management Corrected calcium 11.0. Pending FOBT. Pending transfer to [facility]. full code prognosis guarded crit time 35 mins spent during the encounter. Thank you for consult and for giving an opportunity to take care of this patient. Dietary Evaluation Review Comments: 1. Consider EN/TPN if NPO >7days 2. Continue plan of care Expected Outcomes/Goals: 1. Pt will meet >75% of estimated needs within 2-3 days Plan discussed with: Other ANGELLA REYES MD Oct 14, 2024 16:35
--- NOTE | 2024-10-14 19:53 | DVHDSRES ---
Discharge Summary Date of Admission Resident Creating Document: NAN AMAYA RESIDENT Sep 02, 2024 at 18:47 Date of Discharge: Oct 15, 2024 Labs/Diagnostic Data: Laboratory Results Test 10/14/24 07:58 10/14/24 03:27 10/13/24 19:58 10/13/24 03:00 Blood Gas Specimen Type Arterial Blood Gas Sample Site Right radial Blood Gas Patient Temperature 37.0 Arterial Blood Date Drawn [id number] Arterial Blood pH 7.462 (7.350-7.450) Arterial Blood Partial Pressure CO2 31.4 mmHg (32.0-45.0) Arterial Blood Partial Pressure O2 61.7 mmHg (83.0-108.0) Arterial Blood HCO3 21.9 mmol/L (21.0-28.0) Arterial Blood Oxygen Saturation 90.8 % (94.0-98.0) Arterial Blood Base Excess -0.8 mmol/L (-2.0-3.0) Arterial Blood Oxyhemoglobin 89.7 % (94.0-98.0) Arterial Blood Carboxyhemoglobin 1.0 % (0.5-1.5) Arterial Blood Methemoglobin 0.2 % (0.0-1.5) Cy Test Modified Blood Gas Total Hemoglobin 15.80 g/dL (12.0-16.0) Blood Gas Set Respiration Rate 16.0 Blood Gas Modality Vent - ac Blood Gas Spontaneous Rate 18 FiO2 % 30.0 Blood Gas Tidal Volume 450.0 Blood Gas Inspiratory Pressure 18.0 Bl Gas Inspiratory/Expiratory Ratio 1:3.6 Specimen Drawn By afia rt White Blood Count 12.1 10^3/uL (4.4-10.8) Red Blood Count 3.54 10^6/uL (4.0-5.20) Hemoglobin 10.0 g/dL (12.2-16.2) Hematocrit 31.2 % (36.0-46.0) Mean Corpuscular Volume 88.0 fL (80.0-100.0) Mean Corpuscular Hemoglobin 28.2 pg (28.0-32.0) Mean Corpuscular Hemoglobin Concent 32.1 g/dL (32.0-36.0) Red Cell Distribution Width 14.5 % (11.8-14.3) Platelet Count 363 10^3/uL (140-450) Mean Platelet Volume 8.0 fL (6.9-10.8) Neutrophils (%) (Auto) 68.2 % (37.0-80.0) Lymphocytes (%) (Auto) 16.2 % (10.0-50.0) Monocytes (%) (Auto) 13.1 % (0.0-12.0) Eosinophils (%) (Auto) 1.4 % (0.0-7.0) Basophils (%) (Auto) 1.1 % (0.0-2.0) Neutrophils # (Auto) 8.2 10 ^3/uL (1.6-8.6) Lymphocytes # (Auto) 2.0 10 ^3/uL (0.4-5.4) Monocytes # (Auto) 1.6 10 ^3/uL (0-1.3) Eosinophils # (Auto) 0.2 10 ^3/uL (0-0.8) Basophils # (Auto) 0.1 10 ^3/uL (0-0.2) Nucleated Red Blood Cells 0.1 % Sodium Level 141 mmol/L (136-145) Potassium Level 3.4 mmol/L (3.5-5.1) Chloride Level 108 mmol/L (98-107) Carbon Dioxide Level 25 mmol/L (20-31) Anion Gap 8 (5-15) Blood Urea Nitrogen 8 mg/dL (9-23) Creatinine 0.63 mg/dL (0.550-1.02) Glomerular Filtration Rate Calc 101 mL/min (>90) BUN/Creatinine Ratio 12.7 (10.0-20.0) Serum Glucose 100 mg/dL (74-106) Calcium Level 11.0 mg/dL (8.7-10.4) Magnesium Level 1.8 mg/dL (1.6-2.6) Blood Gas Spontaneous Tidal Volume 526 Blood Gas PEEP or CPAP 5.0 Total Bilirubin 0.3 mg/dL (0.2-1.0) Aspartate Amino Transferase (AST) 23 U/L (13-40) Alanine Aminotransferase (ALT) 20 U/L (7-40) Alkaline Phosphatase 111 U/L (46-116) Total Protein 5.5 g/dL (5.7-8.2) Albumin 3.1 g/dL (3.2-4.8) Test 10/11/24 17:45 10/11/24 09:30 10/11/24 03:00 10/09/24 20:12 Influenza Type A Antigen Negative (Negative) Influenza Type B Antigen Negative (Negative) Prothrombin Time 11.9 sec (9.3-11.8) Prothrombin Time INR 1.13 (0.9-1.15) Activated Partial Thromboplast Time 27.0 SEC (24.5-34.5) Vancomycin Level Trough 20.4 ug/mL (5-10) Test 10/08/24 03:17 10/06/24 14:11 10/06/24 03:30 10/04/24 10:13 Differential Total Cells Counted 100.0 (100) Neutrophils % (Manual) 68 (37.0-80.0) Band Neutrophils % (Manual) 0 Lymphocytes % (Manual) 18 (10.0-50.0) Monocytes % (Manual) 13 (0-12) Eosinophils % (Manual) 1 (0-7) Basophils % (Manual) 0 (0.0-2.0) Metamyelocytes % (manual) 0 Myelocytes % (Manual) 0 Promyelocytes % (Manual) 0 Blast Cells % (Manual) 0 Reactive Lymphocytes 0 Platelet Estimate Adequate Urine Color Colorless (Yellow) Urine Clarity Turbid (Clear) Urine pH 5.0 (5.0-9.0) Urine Specific Wellman 1.006 (1.001-1.035) Urine Protein Negative (Negative) Urine Ketones Negative (Negative) Urine Blood Trace /uL (Negative) Urine Nitrite Negative (Negative) Urine Bilirubin Negative (Negative) Urine Urobilinogen Normal mg/dL (Negative) Urine Leukocyte Esterase 2+ /uL (Negative) Urine RBC 25 /hpf (0 - 4) Urine WBC 73 /hpf (0 - 5) Urine Squamous Epithelial Cells Few /hpf (<5) Urine Bacteria Few /hpf (None Seen) Urine Hyaline Casts Few /lpf (0 - 2) Urine Mucus Few (None Seen) Urine Glucose Normal mg/dL (Normal) SARS-CoV-2 Antigen (Rapid) Negative (NEGATIVE) Random Vancomycin Level 11.1 ug/mL (5-10) Blood Gas Pressure Support 11 Blood Gas EPAP 5 Blood Gas IPAP 16 Test 10/04/24 00:10 10/03/24 03:16 09/29/24 08:46 09/29/24 03:09 Blood Gas Comments Phosphorus Level 4.3 mg/dL (2.4-5.1) Vitamin D 25-Hydroxy 8.2 ng/mL (30.0-100) Large Platelets Few Stomatocytes Moderate Parathyroid Hormone (Intact) 19.4 pg/mL (18.4-80.1) Test 09/23/24 09:25 09/22/24 10:36 09/21/24 09:55 09/21/24 03:09 Urine Yeast (Budding) Moderate /hpf (None Seen) Urine Creatinine 24.25 mg/dL (30.0-125.0) Urine Sodium 109 mmol/L (40-220) Blood Gas Liter Flow 70.00 Blood Gas Notified Time [id number] Creatine Kinase 77 U/L (34-145) Test 09/18/24 07:59 09/16/24 06:45 09/16/24 03:28 09/15/24 03:53 Blood Gas Critical Value Read Back Yes Blood Gas Notified Whom bandar enriquez Blood Gas Notified By afia garcia HIV (1&2) Antibody Negative (Negative) Triglycerides Level 320 mg/dL (< 150) Test 09/12/24 03:05 09/08/24 03:23 09/07/24 11:53 09/06/24 03:00 Erythrocyte Sedimentation Rate 66 mm/hr (0-20) C-Reactive Protein High Sensitivity 13.19 mg/dL (<1.0) Red Blood Cell Morphology Normal POC Glucose 135 mg/dl (70-106) Anisocytosis (manual) Slight Target Cells Few Hepatitis A IgM Antibody Negative Hepatitis B Surface Antigen Negative (Negative) Hepatitis B Core IgM Antibody Negative Hepatitis C Antibody Negative (Negative) Test 09/05/24 03:20 09/04/24 15:52 09/04/24 14:26 09/04/24 04:10 Uric Acid 9.8 mg/dL (3.1-7.8) Lactic Acid Level 1.1 mmol/L (0.4-2.0) Urine Amorphous Crystals Few /hpf (None Seen) Urine Total Protein 253.7 mg/dL (1-14) Smudge Cells 1 /100 WBC Clumped Platelets Few Hemoglobin A1c 5.7 % A1C (<5.7) Ammonia 21 umol/L (11-32) Lactate Dehydrogenase 436 U/L (120-246) Cholesterol Level 145 mg/dL (< 200) LDL Cholesterol mg/dL (< 100) HDL Cholesterol 10 mg/dL (40-59) Lipase 26 U/L (12-53) Thyroid Stimulating Hormone (TSH) 0.83 uIU/mL (0.55-4.78) Test 09/02/24 19:17 09/02/24 16:28 Troponin I High Sensitivity 72 ng/L (</=34) Toy Cells Moderate B-Type Natriuretic Peptide 249.65 pg/mL (0-100) Other Laboratory Tests 10/14/24 03:27 Brief Hx & Hospital Course: This is a 63-year-old female patient with PMHx of PE in 2015, multiple abdominal surgeries including hernia and bowel obstruction, lasts hernia surgery [place] [address] Anaya, right distal ureteral calculus in February 2024, AKA, rib fractures, chronic nicotine dependence in polysubstance use including methamphetamine and cannabis presented to the ER with a chief complaint of shortness of breaths. She was successfully intubated on 09/02. Per patient's daughter, patient became short of breath and febrile at 102.7 F, and therefore they had to call [facility]. Patient was saturating at 70% and therefore the patient was brought to the ER. She was intubated once before 4 years back after abdominal surgery at [facility] where she experienced difficult extubation. Patient is a nonsmoker for more than 50 years, currently smokes more than 1 pack a day. During the hospitalization, patient was diagnosed with septic shock and acute hypoxic respiratory failure secondary to community-acquired pneumonia and acute metabolic encephalopathy for which she was intubated and mechanically ventilated starting 09/02. She required pressor support and sedation. Patient had 2 small granulating wounds from previous surgeries surgeon was consulted and patient had suture granulomas which were removed by the surgeon on 09/05. Patient had to be reintubated twice after extubation, the last intubation was on 10/04. Bronchoscopy performed 09/29 shows Right lower lobe atelectasis due to mucous plugging. Mucous plugging from R6-R10. Tracheostomy was delayed as the family initially refused tracheostomy and infection with influenza. Patient underwent tracheostomy 10/12 and her oxygen requirements went up to 5-60% with tracheostomy. She was placed on trach collar on 10/14 for 1 hour, discontinued as the patient vomited and she was switched to AC. Initial blood cultures grew staph hominis and respiratory cultures grew MRSA and S pneumo for which she received vancomycin and meropenem which was later switched to ceftriaxone. Patient was diuresed throughout the stay with Lasix, she developed hypercalcemia which was corrected with IV fluids. Urine culture shows Juju and patient received IV Diflucan from 10/07 till 10/11. Repeat blood culture 10/06 showed no growth after 5 days of incubation. Repeat respiratory culture 10/04 shows no growth after 48 hours of incubation Patient also had lower extremity DVT on 08/15,Ultrasound Doppler of lower extremities 08/15 shows nonocclusive DVT of the left popliteal vein and therefore has been on Lovenox 100 mg b.i.d.. 10/15/24, patient is hemodynamically stable, off pressors sedatives. Patient had dark brown liquid bowel movement today. She was placed on trach collar but her respiratory went up to 34 and therefore she was switched to AC mode. Started IV vanc and Zosyn 10/15 given the febrile episodes. Fever resolved with acetaminophen supplementation.. Intubated on 09/02/2024, reintubated 10/04 Tracheostomy 10/04 IV access: Left upper arm PICC line, placed on 09/13 Vasquez changed 10/07 Consults/Reason for consult Surgeon consulted for umbilical hernia Nephrology consulted for FEDE Infectious disease consulted for pneumonia MRSA Cardiology consulted for CHF Operations or Procedures ORDERING PHYSICIAN: IVAN BRYANT MD PROCEDURE(s): CX2CT - CHEST WITHOUT CONTRAST REASON: left lung consolidation per xray ORDER NUMBER(s): [id number], ACCESSION NUMBER(s): [id number] Procedure: CT CHEST WITHOUT CONTRAST Reason for study/Clinical History: left lung consolidation per xray Comparison Study: Chest x-ray 09/06/2024 Exam Date: 09/06/2024 11:05 PM TECHNIQUE: Multidetector CT of the chest was performed from the lung apices to the upper abdomen without the use of intravenous contract. Axial, coronal and sagittal multiplanar reformats were performed. Radiation Dose Information: CT Dose: CTDI volume is 30.65 mGy. Dose-length product is 1253.6 mGy*cm The dose indicators for CT are the volume Computed Tomography (CT) Dose Index (CTDIvol) and the Dose Length Product (DLP), and are measured in units of mGy and mGy-cm, respectively. These indicators are not patient dose, but values generated from the CT scanner acquisition factors. The report includes radiation exposure data for exposures received during this examination. Radiation optimization: All CT scans at this facility use at least one of these dose optimization techniques: automated exposure control mA and/or kV adjustment per patient size (includes targeted exams where dose is matched to clinical indication) or iterative reconstruction. FINDINGS: Thyroid gland appears unremarkable. The tip of the endotracheal tube is at the teetee towards the right mainstem bronchus and retraction of approximately 2 cm is recommended for ideal positioning. Enteric tube tip is within the stomach. There is consolidation and atelectasis of the left lower lobe and portion of the left upper lobe. There is some narrowing of the left upper lobe bronchus and nonvisualization of the left lower lobe bronchus. Fluid density is noted suggesting small pleural effusion. Consolidation in the right lower lobe favors atelectasis. There are a few prominent mediastinal lymph nodes with left hilar lymph node measuring up to 1.2 cm in short axis. Coronary calcifications are noted. Thoracic aorta appears normal in caliber and contour. There is no pericardial effusion. Visualized portions of the upper abdomen demonstrate trace perihepatic fluid. There is fatty replacement of the pancreas. No suspicious osseous lesion IMPRESSION: 1. Endotracheal tube at the teetee pointed towards the right mainstem bronchus retraction of approximately 1-2 cm is recommended. 2. Consolidation, atelectasis of the left lung with complete obscuration of the left lower lobe bronchus and narrowing of the left upper lobe bronchus with small pleural effusion. Findings may be on the basis infectious process, neoplasm, or mucous plug. Bronchoscopy may be of benefit. 3. Nonspecific prominent mediastinal and hilar lymph nodes, may be reactive. HS:Y ATED BY: ABNER WIGGINS MD DICTATED DATE/TIME: 09/07/24430 SIGNED BY: ABNER WIGGINS MD SIGNED DATE/TIME: 09/07/24430 CC: ORDERING PHYSICIAN: RAMA ELLIS PROCEDURE(s): ECIDC - ECHO 2D MODE CARDIAC DOP REASON: evaluate cardiac function ORDER NUMBER(s): [id number], ACCESSION NUMBER(s): [id number] APPROVED REPORT EXAM: LIMITED Two-dimensional and M-mode echocardiogram with Doppler and color Doppler. Blood Pressure: 119/78 mmHg INDICATION Evaluate cardiac function RISK FACTORS Obesity: Height: 5' 8", Weight: 260 DIMENSIONS LVDd 4.6 (3.8-5.7cm) LA (2D) 3.9 (1.9-4.0cm) Aortic Root 3.3 (2.0- 3.7cm) LVDs 3.5 (2.5-4.0cm) LA (MM) (1.9-4.0cm) Aortic Cusp Exc 1.8 (1.5- 2.0cm) EF (%) 50.0 (55-70%) Rt. Atrium 4.0 (1.9-4.0cm) Asc. Aorta cm IVSd 1.1 (0.7-1.1cm) RV (D) (1.8-2.4cm) PWd 1.1 (0.7-1.1cm) Mitral Valve Mitral Mitral Stenosis E wave 1.00m/s MV Mean GR. mmHg A wave 0.90m/s MV Peak GR. mmHg E/A ratio 1.1 2D MVA cm2 Aortic Valve Aortic Valve Aortic Stenosis V1 1.30m/s AO Mean GR. 5mmHg V2 1.50m/s AO Peak GR. 9mmHg LVOT Diameter 2.1 (1.8-2.4cm) Doppler MICHAELA 3.00cm2 Pulmonic Valve V2 0.60m/s Other Information Quality : Technically Limited Rhythm : Abnormal Technically limited study due to body habitus. Conclusion MILD LVH AND MILD LV DIASTOLIC DYSFUNCTION LV EJECTION FRACTION IS 65% POSTERIOR MITRAL LEAFLET IS CALCIFIED BUT NO STENOSIS NORMAL TV,PV AND AORTIC VALVE NO EFFUSION MODERATELY DILATED RV AND RA DYSKINESIS OF IVS FINDINGS REVEAL RV FAILURE SIGNED BY: RELL STEWART MD SIGNED DATE/TIME: 09/04/24 1422 CC: Operative Report - 2 Report Details Date: 10/12/24 Preop Diagnosis: Respiratory failure Postop Diagnosis: Same Surgeon: Conner You MD Weaver Dobby Loom: None Anesthesiologist: Jose Gil CRNA Anesthesia: General Drains: Shiley [id number] tracheostomy tube Consent: The surgery and its risks including but not limited to potentially life- threatening infection and bleeding, possible perioperative WI or stroke were explained to the patient's daughter. All questions were answered to her satisfaction. She expressed verbal understanding and wished to proceed with the surgery for her mother. Complications: None Estimated Blood Loss: 5 mL Fluids: 200 mL Name of Procedure Performed Tracheostomy tube placement Procedure Details Procedure Details: After induction of general anesthesia, patient's anterior neck was prepped and draped in standard surgical fashion. A small transverse incision was made correction between the cricoid cartilage and the sternal notch. Incision extended through the soft tissue through the platysma muscles down to the strap muscles. The strap muscles were divided in midline gaining access to the isthmus of the thyroid gland. The isthmus of the thyroid gland was then divided gaining access to the anterior lumen of the trachea. Ventilation was then temporarily held an endotracheal tube cuff was deflated. Upside-down T-incision was made through the 1st and the 2nd tracheal rings gaining into the lumen of the trachea. There was lot of mucus within the lumen which was suctioned. Shiley [id number] tracheostomy tube was easily inserted into the tracheal lumen and the balloon was inflated. Patient was quickly placed back on the ventilator with good return of CO2. Interrupted 3-0 Vicryl sutures were used to reapproximate the platysmal muscle around the tube. Skin incision was then closed using interrupted 4-0 Monocryl sutures. Surgical site was cleaned and dried and dressings were applied. Sponge, needle, instrument count at the end the case were reported to be correct by the nursing staff. The patient tolerated procedure well and was transferred back to ICU in guarded condition. Condition Guarded Condition at Discharge: Guarded Final Diagnosis/Problems List Acute metabolic encephalopathy likely due to septic shock Acute hypoxic respiratory failure secondary to probable community-acquired pneumonia due to MRSA and S pneumo status post tracheostomy 10/12 Advanced COPD Chronic nicotine dependence Influenza B infection Respiratory alkalosis with metabolic alkalosis Septic shock NSTEMI likely type 2 secondary to septic shock Probable right ventricular failure Prolonged QTC-resolved History of multiple surgeries secondary to hernia and bowel obstruction Multiple ventral wall hernias Possible bowel obstruction Transaminitis secondary to septic shock Rhabdomyolysis likely secondary to immobilization FEDE, likely secondary to VMN - resolved Probable pelvic inflammatory disease Hyponatremia-resolved Hypomagnesemia Hypercalcemia Hypertriglyceridemia Likely due to propofol, discontinued propofol Obesity Polysubstance use Lower extremity DVT Discharge Disposition: Acute Care Facility Discharge Instruct/Medications Diet comment: Jevity 40 mL/hour Activity: Bed rest Follow Up/Referral: Follow up per the facility Discharge Statement: "Patient was advised to return to the ER or call 911 if any headaches, dizziness, shortness of breath, chest pain, abdominal pain, bleeding, fevers, or worsening of medical condition. Patient was counseled about treatment plan, medications, possible side effects, patientverbalized understanding. All questions were answered to the best of my ability. This discharge took greater then 30 minutes in planning, reviewing documentation, counseling the patient, and discussing with other team members." ASSESSMENT ASSESSMENT Assessment Same Date of Service: Oct 15, 2024 Billing Provider: ALIDA STEWART MD Common Visit Codes: 24214-CRT/OBS DISCH DAY >30min NAN AMAYA RESIDENT Oct 14, 2024 19:53 ALIDA STEWART MD Oct 19, 2024 21:07
--- NOTE | 2024-10-14 19:57 | DVHPN2 ---
Progress Note - Dictate Date Seen: Oct 14, 2024 Has the PT tested + for MRSA If YES, has PT been informed?: Yes Medical Necessity Reason Pt with a Central, PICC or Fol: Yes The following are medically ne: PICC Line, Betancourt Catheter Reason for betancourt catheter: Strict I&O Subjective Patient was seen and evaluated in follow up in the ICU. Patient is intubated and sedated on ventilator. 30% FiO2. 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 WBC 12.1, HCT 31.2, K 3.4, CL 108. vital signs Vital Sign Date Time Temp Pulse Resp B/P (MAP) Pulse Ox O2 Delivery O2 Flow Rate FiO2 10/14/24 10:00 105 12 147/83 (104) 95 10/14/24 10:00 Trach Collar 10 30 30 10/14/24 08:00 99.8 99.8 Total Intake and Output 10/13/24 10/13/24 10/14/24 15:00 23:00 07:00 Intake Total 284.0 ml 956.0 ml 472.5 ml Output Total 1000 ml 900 ml Balance 284.0 ml -44.0 ml -427.5 ml medications Current Medications Medications Dose Ordered Sig/Acacia Route Start Time Stop Time Status Last Admin Dose Admin Pantoprazole Sodium 40 mg DAILY IV 09/04/24 10:00 10/14/24 09:16 40 MG Albuterol 2.5 mg Q6HPRN PRN NEB 09/21/24 19:00 10/14/24 06:53 2.5 MG Ipratropium [place] 0.5 mg Q6HPRN PRN NEB 09/21/24 19:00 10/14/24 06:53 0.5 MG Midazolam HCl 50 ml @ 1 mls/hr Q24H IV 09/22/24 19:45 10/13/24 10:18 8 MLS/HR Potassium Chloride/Sodium Chloride 1,000 ml @ 50 mls/hr Q20H IV 09/25/24 12:00 Cancel Acetaminophen 650 mg Q6HP PRN GT 09/30/24 11:45 10/07/24 22:10 650 MG Metoclopramide HCl 10 mg TID IV 10/01/24 18:00 10/14/24 05:43 10 MG Lactulose 30 ml Q4HR PO 10/05/24 14:00 10/14/24 09:17 30 ML Enoxaparin Sodium 100 mg BID SC 10/13/24 10:00 10/14/24 09:16 100 MG Enteral Nutritional Formula 1,000 ml 30ML/HR GT 10/12/24 13:00 Morphine Sulfate 1 mg Q4HP PRN IV 10/14/24 10:00 UNV objective GENERAL: Intubated on ventilator. Morbidly obese. LUNGS: Decreased breath sounds. CARDIOVASCULAR: Heart sounds are good. ABDOMEN: Soft. Morbid pannus limited physical palpation. SKIN: Multiple scars to abdomen. laboratory and microbiology Laboratory Tests 10/14/24 03:27 Test 10/14/24 03:27 Range/Units Serum Glucose 100 74-106 mg/dL Problem List Septic shock. Acute on chronic respiratory failure. NSTEMI type II secondary to above. Rule out structural heart disease. Prolonged QT interval. Morbid obesity, Class 3. Influenza B Assessment/Plan Continued all current supportive medical care. Lactulose. IV antibiotics as ordered. GI prophylactics. Vasopressors for hemodynamic support. Nebulized breathing treatments. Additional plan as per the hospital course. Critical care time of 45 minutes provided to include time spent evaluation of patient at bedside, when appropriate patient/family education for diagnosis, treatment plan, review of pertinent medical information and discussion of care with specialty providers and PCP. Mechanical ventilator parameters, treatment and adjustments have personally been reviewed by me and treatment plan by pharmaceutical sales specialist has also been reviewed. Dietary Evaluation Review Comments: 1. Consider EN/TPN if NPO >7days 2. Continue plan of care Expected Outcomes/Goals: 1. Pt will meet >75% of estimated needs within 2-3 days Plan discussed with: Other RELL STEWART MD Oct 14, 2024 11:24
[2024-10-15] VITALS (56 sets, daily range): BP systolic 98–177; BP diastolic 63–101; PULSE 87–131; RESP 14–41; TEMP 99–100.4; O2SAT 88–100
[2024-10-15 03:38] LABS: Basophils # (auto) 0.1 10 ^3/uL (0-0.2); Basophils % (auto) 0.4 % (0.0-2.0); Eosinophils # (auto) 0.1 10 ^3/uL (0-0.8); Eosinophils % (auto) 0.5 % (0.0-7.0); Hematocrit 32.8 % (36.0-46.0); Hemoglobin 10.7 g/dL (12.2-16.2); Lymphocytes # (auto) 1.9 10 ^3/uL (0.4-5.4); Lymphocytes % (auto) 9.6 % (10.0-50.0); Mean Corpuscular Hemoglobin 28.6 pg (28.0-32.0); Mean Corpuscular Hgb Conc. 32.7 g/dL (32.0-36.0); Mean Corpuscular Volume 87.4 fL (80.0-100.0); Monocytes # (auto) 2.3 10 ^3/uL (0-1.3); Monocytes % (auto) 11.9 % (0.0-12.0); Neutrophils # (auto) 15.4 10 ^3/uL (1.6-8.6); Neutrophils % (auto) 77.6 % (37.0-80.0); Platelet Count (auto) 330 10^3/uL (140-450); Red Blood Cells 3.75 10^6/uL (4.0-5.20); Red Cell Distribution Width 14.5 % (11.8-14.3); White Blood Cell 19.8 10^3/uL (4.4-10.8)
[2024-10-15 03:50] LABS: Anion Gap 8 (5-15); Carbon Dioxide 25 mmol/L (20-31); Chloride 107 mmol/L (98-107); Sodium 140 mmol/L (136-145)
[2024-10-15 03:56] LABS: BUN/Creatinine Ratio 13.3 (10.0-20.0); Glucose 106 mg/dL (74-106)
[2024-10-15 03:57] LABS: Magnesium 1.7 mg/dL (1.6-2.6)
[2024-10-15 04:02] LABS: Blood Urea Nitrogen 8 mg/dL (9-23)
--- NOTE | 2024-10-15 05:29 | DVH ---
CHEST RADIOGRAPH Indication: Follow up Technique: Single frontal view of the chest was obtained COMPARISON: XY CHEST PORTABLE on DOS: 10/13/24, XY CHEST XRAY 1 VIEW on DOS: 10/12/24, XY CHEST XRAY 1 VIEW on DOS: 10/11/24, XY CHEST XRAY 1 VIEW on DOS: 10/09/24, XY CHEST XRAY 1 VIEW on DOS: 10/08/24 FINDINGS: Lines and Tubes: Tracheostomy and enteric catheter in satisfactory position. Left PICC in satisfactor y position. Lungs: Multifocal airspace disease. Pleura: No effusion. No pneumothorax. Cardiomediastinal contours: Unremarkable Bones: Unremarkable IMPRESSION: Lines and tubes in satisfactory position. No significant interval change.
[2024-10-15] MEDS: POTASSIUM CHL 20MEQ/100ML 100 ML IV SCH (07:57)
[2024-10-15] MEDS: MAGNESIUM SULFATE 1GM/100ML 100 ML IV ONE (07:58)
[2024-10-15] MEDS: cloNIDine HCL 0.1 MG TAB PO ONE (08:24)
[2024-10-15 08:52] LABS: Base Excess -0.4 mmol/L (-2.0-3.0)
[2024-10-15 10:25] LABS: Urine Bacteria None Seen /hpf (None Seen)
[2024-10-15 11:14] LABS: Urine Blood 1+ /uL (Negative); Urine Clarity Turbid (Clear); Urine Color Yellow (Yellow); Urine Hyaline Cast FEW /lpf (0 - 2); Urine Mucus FEW (None Seen); Urine Protein, UAD TRACE (Negative); Urine Squamous Epithelial Cell MOD /hpf (<5); Urine Urobilinogen Normal (Negative); Urine WBC 39 /hpf (0 - 5); Urine pH 5.5 (5.0-9.0)
[2024-10-15] MEDS: POTASSIUM CHL 20MEQ/100ML 100 ML IV ONE (11:32)
[2024-10-15 11:37] LABS: COVID19 ANTIGEN SOFIA FIA NEGATIVE (NEGATIVE)
[2024-10-15 11:44] LABS: Rapid Influenza A Negative (Negative); Rapid Influenza B Negative (Negative)
[2024-10-15] MEDS: CEFEPIME 1GM/ 50ML 50 ML IV SCH (13:31)
--- NOTE | 2024-10-15 14:01 | DVHPNRES ---
Progress Note Date Seen: Oct 15, 2024 Resident Creating Document: NAN AMAYA RESIDENT Has the PT tested + for MRSA If YES, has PT been informed?: Yes Medical Necessity Reason Pt with a Central, PICC or Fol: Yes The following are medically ne: PICC Line, Betancourt Catheter Reason for betancourt catheter: Strict I&O Subjective Review of Systems This is a 63-year-old female patient with PMHx of PE in 2015, multiple abdominal surgeries including hernia and bowel obstruction, lasts hernia surgery [place] [address] Anaya, right distal ureteral calculus in February 2024, AKA, rib fractures, chronic nicotine dependence in polysubstance use including methamphetamine and cannabis presented to the ER with a chief complaint of shortness of breaths. She was successfully intubated on 09/02. Per patient's daughter, patient became short of breath and febrile at 102.7 F, and therefore they had to call [facility]. Patient was saturating at 70% and therefore the patient was brought to the ER. She was intubated once before 4 years back after abdominal surgery at [facility] where she experienced difficult extubation. Patient is a nonsmoker for more than 50 years, currently smokes more than 1 pack a day. 09/05 - 2 small granulating wounds on abdomen are suture granulomas, sutures removed by surgeon 09/28 - Patient seen and examined at the bedside. Overnight patient became bradycardic, pulse was 30s, telemetry reviewed rhythm was regular, likely sinus bradycardia, sedation was turned off and the patient's pulse went up to 58 beats per minute which is her baseline. No bowel movements overnight. Patient made around 950 cc of urine. 40 mEq of potassium supplement and 2 g magnesium supplemented. Continue IV vancomycin and levofloxacin. Id on board. CPAP trial ended early as the patient became tachypneic with RR of 46/min. Raised Jevity 1.2 to 40 mL/hour. 09/29 - patient is sedated and mechanically intubated. Overnight patient made 450 mL of urine. ABG in the a.m. shows respiratory alkalosis, CO2 decreased from 38-32 and bicarb decreased from 25-22. Corrected calcium 12.3. PTH level 19. Chest x-ray shows left-sided aeration is better than as compared to when on admission. Patient underwent CPAP trial which and that as the patient became tachypneic. Discussed the option of tracheostomy with patient's daughter Toshia, she said that the family and herself does not want tracheostomy and did not think that patient would want tracheostomy. Patient's family requesting for bronchoscopy. Dr. Luis consulted for bronchoscopy per patient's family request. Bronchoscopy performed 09/29 shows Right lower lobe atelectasis due to mucous plugging. Mucous plugging from R6-R10 K 2.9, 80 mEq replenished. Mag 1.7, 2 g replenished. 09/30-patient seen and examined at bedside. 625 mL of urine overnight. 2 L of urine during the day of 09/29. No bowel movement. Lactulose started. T-max of 99.6 overnight. DC Levaquin today started meropenem. Family meeting for over 50 minutes today. Family declined tracheostomy, per daughter the patient would be very upset on tracheostomy and it would be a burden on her. CPAP trial earlier next week. 10/01 - patient seen and examined at bedside. DC Diflucan. Started Reglan IV 10 mg TID, started Colace and senna, lactulose increased to b.i.d.. Chest x-ray shows worsening pulmonary vascular congestion and bilateral effusion. Last bowel movement was on 23 September. Cumulative intake output less 4 L. ABG shows metabolic alkalosis with respiratory acidosis. Consider Diamox if patient becomes more alkalotic. 10/04 - over night T-max 99.7, pulse 110, blood pressure elevated to 181/103. Corrected calcium 13.2. Patient received 1 dose of calcitonin SC. Patient was tachypneic on BiPAP, rate in the range of 47-51. Patient was altered. Called family, per Toshia - family decided to go for tracheostomy, consult received for re-intubation. Patient reintubated at 12:10 p.m. ETT retracted 2 cm. Chest x- ray in a.m.. Surgeon consulted for tracheostomy. Planning tracheostomy on 07 October. Initiated half NS at 75 cc/hour. DC meropenem, switched to ceftriaxone and continue vancomycin. ABG showed compensated metabolic alkalosis. Last BM on . 10/05 - overnight low-grade fever 100.1 at the time of intubation, urine output 675 mL. No bowel movement. Increase lactulose to q.4. Increased dose of senna. On propofol 5, fentanyl 250, Versed 12 and Levophed4. 250 bolus of NS administered. ABG shows metabolic alkalosis with respiratory alkalosis. Respiratory rate decreased from 22-20. Corrected calcium 12.4 downtrending. 10/06 - patient is T-max 100.2 F. COVID, influenza, UA ordered. Tylenol 650 mg started. Discontinued half NS. Lasix 20 mg IV given in the a.m. urine output 500 mL post Lasix. Lasix 20 mg IV in the p.m.. NPO starting midnight. Holding Lovenox for tracheostomy. Repeat blood culture ordered. 10/07-patient is having temperature 101.1 F. tracheostomy postponed. WBC count elevated from 11-12. Change Betancourt. Repeat urine culture. Started meropenem. Levophed requirement increased from 2 to 12 Repeat respiratory culture, blood culture, urine culture preliminary are negative. 10/08-overnight patient was febrile at 100.8 F. WBC increased to 17 from 12. Continuing with vancomycin. Repeat preliminary blood, urine, respiratory culture negative. DC meropenem. Started Levaquin. Corrected calcium 12.1. Started D5 half NS. Restarted Lovenox 100 mg q.12. Trach planned for Friday. Hold Lovenox starting 10/10. RR increased to 21 10/11 - patient seen and examined at the bedside. Hemoglobin steadily dropping. Occult Blood ordered. Continue D5 half NS. Corrected calcium 11.7. DC vancomycin. Repeat influenza testing negative. Rectal exam completed, decreased tone, no masses felt, mucoid secretions. Patient made 1000 cc of urine in the daytime. WBC increased to 12. 10/12 - patient underwent tracheostomy placement. Patient requiring increased oxygen supplementation FiO2 60% with tracheostomy. DC half NS. DC Levaquin tomorrow if no signs of SIRS. Starting Lovenox tomorrow. Patient had overnight small bowel movement. 10/13 - patient seen and examined at bedside. She is off Levophed. Only on Versed and fentanyl. Patient seen crying. ABG shows respiratory alkalosis with metabolic alkalosis. FiO2 decreased to 30% and respiratory rate decreased today to 16. Continue to down titrate sedation. Overnight: 500 cc of urine. Administered 20 IV Lasix. 3250 cc of urine in the day shift 10/14 - patient seen and examined. Heart rate in 100s but sinus. Trach collar for 1 hour, patient vomited, switched to ventilator. 900 mL urine out overnight. X-ray KUB shows nonspecific bowel gas pattern with a distended loops of colon. Limited study. Patient is passing flatus. Patient had a bowel movement. 10/15 - patient seen and examined. Overnight, patient was febrile T-max 101.6 F. started IV vanc and Zosyn. Repeat pancultures. COVID flu negative. She was on trach collar for 1 hour, respiratory rate was 34, switch to ventilator. Patient experienced multiple episodes of yellow colored vomiting. Patient was hypertensive and tachycardic, 1 dose of clonidine 0.1 given. Started chlorthalidone 25 mg daily Objective vital signs Vital Sign Date Time Temp Pulse Resp B/P (MAP) Pulse Ox O2 Delivery O2 Flow Rate FiO2 10/15/24 13:37 90 21 128/86 (100) 95 30 10/15/24 12:00 Mechanical Ventilator+ 0 Trach Collar 10/15/24 12:00 99.6 99.6 Total Intake and Output 10/14/24 10/14/24 10/15/24 15:00 23:00 07:00 Intake Total 207.5 ml 235 ml 360 ml Output Total 650 ml 675 ml Balance 207.5 ml -415 ml -315 ml medications Current Medications Medications Dose Ordered Sig/Acacia Route Start Time Stop Time Status Last Admin Dose Admin Pantoprazole Sodium 40 mg DAILY IV 09/04/24 10:00 10/15/24 09:56 40 MG Albuterol 2.5 mg Q6HPRN PRN NEB 09/21/24 19:00 10/14/24 18:36 2.5 MG Ipratropium [place] 0.5 mg Q6HPRN PRN NEB 09/21/24 19:00 10/14/24 18:36 0.5 MG Potassium Chloride/Sodium Chloride 1,000 ml @ 50 mls/hr Q20H IV 09/25/24 12:00 Cancel Acetaminophen 650 mg Q6HP PRN GT 09/30/24 11:45 10/14/24 21:03 650 MG Metoclopramide HCl 10 mg TID IV 10/01/24 18:00 10/15/24 05:40 10 MG Lactulose 30 ml Q4HR PO 10/05/24 14:00 10/15/24 09:56 30 ML Enoxaparin Sodium 100 mg BID SC 1/1/25 10:00 10/15/24 09:56 100 MG Enteral Nutritional Formula 1,000 ml 30ML/HR GT 10/12/24 13:00 Morphine Sulfate 1 mg Q4HP PRN IV 10/14/24 10:00 Cefepime HCl 50 ml @ 12.5 mls/hr Q8HR IV 10/15/24 14:00 10/15/24 13:31 12.5 MLS/HR Examination Obese female patient lying in bed, RASS -2, on tracheostomy with vent support General: Morbidly obese, afebrile, palor, mucosae are moist, dilated and sluggish light reflex Cardiovascular: Regular S1 and S2. No murmurs, gallops or rubs. No JVD elevation. Lower and upper extremity 1+ edema noticed. Respiratory: Equal bilateral air entry, saturating 96% on FiO2 of 30%. Tracheostomy site clean. Abdomen: Abdomen is distended, normal bowel sounds, multiple ventral hernia seen, right-sided dressing removed, no drainage noticed. Stage II decubitus ulcer seen with overlying erythema but no drainage noticed. Midline scar seen. Rectal exam completed, decreased tone, no masses felt, mucoid secretions. Genitourinary: Betancourt catheter seen MSK/skin: Skin is dry and warm Neurological: Pupils are isocoric and reactive. laboratory and microbiology Laboratory Tests 10/15/24 03:12 Test 10/15/24 03:12 Range/Units Serum Glucose 106 74-106 mg/dL Microbiology Date/Time Source Procedure Growth Status 10/07/24 17:31 Urine - Betancourt [place] Urine Culture - Final Presumptive Juju albicans Complete 10/06/24 14:50 Blood Blood Culture - Final NO GROWTH AFTER 5 DAYS OF INCUBATION. Complete 10/04/24 12:40 Sputum Gram Stain - Final Complete 10/04/24 12:40 Sputum Respiratory Culture - Final Complete 09/26/24 13:00 Abdomen Gram Stain - Final Complete 09/26/24 13:00 Wound Culture - Final Methicillin Resistant S.aureus Complete 09/06/24 13:00 Vaginal Vaginal Culture - Final Enterococcus faecalis Methicillin Resistant S.aureus Complete Labs and/or images reviewed: Labs reviewed by me, Image(s) reviewed by me Problem List/Assessment/Plan Problem List/Assessment/Plan NEUROLOGY Acute metabolic encephalopathy likely due to septic shock - patient is sedated and mechanically ventilated, RASS -2 CARDIOVASCULAR Septic shock NSTEMI likely type 2 secondary to septic shock Probable right ventricular failure Prolonged QTC-resolved - cardiology recommended conservative management - echocardiogram shows dyskinesis of IVC, dilated RV and dilated RA. RV failure. Mild LVH and mild LV diastolic dysfunction with EF 65 % - blood culture 09/02 showed Staph hominis sensitive to vancomycin - repeat blood culture 09/11 showed Staphylococcus epidermidis sensitive to Cipro, clinda, linezolid, vancomycin - repeat blood culture 09/24 shows no growth - repeat blood culture 10/06 shows no growth - discontinued furosemide 40 mg IV daily starting 09/27 till 10/04 - Lasix 20 mg b.i.d. given 10/06 and 10/13 - started chlorthalidone 25 mg daily 10/15 RESPIRATORY Acute hypoxic respiratory failure secondary to probable community-acquired pneumonia due to MRSA and S pneumo status post tracheostomy 10/12 Advanced COPD Chronic nicotine dependence Influenza B infection Respiratory alkalosis with metabolic alkalosis - patient was intubated and mechanically ventilated starting 09/02 - bronchoscopy completed 09/07, results showed MRSA positive - repeat bronchoscopy 09/08, showed comparatively lesser secretions - sputum culture 09/02 showed MRSA, strep pneumo - bronchial wash specimen collected 09/07 showed MRSA - repeat respiratory culture 09/22 showed MRSA and presumtive Juju albicans - received cefepime from 09/02 to 09/06 - received meropenem 11/03 to 09/05, - received vancomycin from 09/03 to 09/11 - received ceftriaxone 2 g daily from 09/13 to 09/19 - received linezolid from 09/11 to 09/17 - continue albuterol and ipratropium q.6 hour p.r.n. - ongoing antibiotics: IV cefepime and IV vancomycin starting 10/15. Pancultures pending - Discontinued Levaquin starting 10/08 till 10/13. - vancomycin 09/27 till 10/11 and started oseltamivir 75 mg b.i.d. 10/06 till 10/11 - discontinued IV meropenem started from 09/30 till 10/04 - discontinued Diflucan-patient received from 09/27 till 10/01 - discontinued Levaquin 09/30 - 09/28 and 09/29 CPAP trial ended early as the patient became tachypneic with RR of 46/min. - 10/04- patient tachypneic on BiPAP, reintubated per family's request. Family considering tracheostomy. Consent signed. Tracheostomy 10/12 - Dr. Luis consulted for bronchoscopy. Bronchoscopy performed 09/29 shows mucus plugs in the left upper lobe. - respiratory culture preliminary shows no organism. GI History of multiple surgeries secondary to hernia and bowel obstruction Multiple ventral wall hernias Possible bowel obstruction Transaminitis secondary to septic shock Rhabdomyolysis likely secondary to immobilization Surgeon consulted-recommended conservative management, small varices could not be performed at this moment due to respiratory status of the patient Continue IV pantoprazole 40 mg daily Discontinued senna b.i.d. Lactulose increased to q.4 10/05 /KIDNEY FEDE, likely secondary to VMN - resolved Probable pelvic inflammatory disease Hyponatremia-resolved Hypomagnesemia Hypercalcemia -corrected calcium 12.1, discontinued D5 half NS 10/08 - creatinine downtrending - creatinine kinase downtrended from 8215 to 77 - nephrology consulted, last hemodialysis session was performed on 09/10 - urine bacterial culture 09/02 showed less than [id number] CFU of coagulase-negative Staphylococcus - vaginal culture 09/06 showed coagulase-negative Staphylococcus, Enterococcus faecalis, MRSA sensitive to daptomycin, linezolid, vancomycin, TMP SMX - patient had purulent vaginal discharge - 40 mEq potassium and 2 g of magnesium administered 09/28 - monitor calcium, received 1 dose of calcitonin on 10/04. Discontinued half NS 10/06 - repeat urine culture 10/07 shows <1 lac yeast ENDO Hypertriglyceridemia, TG 623 09/04, 320 at 09/15 Likely due to propofol, discontinued propofol Obesity - Continue Atorvastatin 40 mg ID Polysubstance use - Infectious disease consulted, continue management as above - Per patient's daughter, patient uses amphetamine, marijuana, smokes cigarettes - HIV testing negative - Hepatitis panel negative -repeat cultures blood and respiratory pending 10/15 Hematology Lower extremity DVT - Ultrasound Doppler of lower extremities 08/15 shows nonocclusive DVT of the left popliteal vein - restart Lovenox 100 mg b.i.d. 10/14 LINES ETT, intubated on 09/02/2024, reintubated 10/04 IV access Left upper arm PICC line, placed on 09/13 Betancourt changed 10/07 Drips: Versed 0 Propofol 0 Levophed 0 from Fentanyl 25 Last bowel movement 10/15 Nutrition Jevity 40 mL/hour Goals of care/advance care planning; FULL CODE; discussed on for 24 minutes. PUD prophylaxis; re starte 1/2 DVT prophylaxis; pantoprazole 40 mg IV daily Case discussed with Dr. Simmons. Awaiting transfer to [place]. on trach collar for 1 hour, respiratory rate was 34, switch to AC. Repeat culture pending. Plan discussed with the patient's daughter over the bedside for more than 50 minutes, code status full code Critical care time including review of chart, discussion with the family, excluding procedures: 59 minutes Plan discussed with: Patient My Orders My Orders Orders - NAN AMAYA Procedure Category Date Status Time Abg W/ Co-Ox RT 10/15/24 Logged 04:00 Chest Xray 1 View XY 10/15/24 Resulted 04:00 Blood Culture MOISES 10/15/24 In Process 06:43 Respiratory Culture MOISES 10/15/24 Logged W/ Gs 06:43 Vancomycin Per SIMRAN 10/15/24 In Process Pharmacy Protoc 10:46 Cefepime 1gm/ 50ml PHA 10/15/24 In Process (Maxipime 1gm/50ml) 14:00 Potassium LAB 10/15/24 Logged 15:00 Dietary Evaluation Review Comments: 1. Consider EN/TPN if NPO >7days 2. Continue plan of care Expected Outcomes/Goals: 1. Pt will meet >75% of estimated needs within 2-3 days Date of Service: Oct 15, 2024 Billing Provider: ALIDA SIMMONS MD Common Visit Codes: 50118-[id number] INP/OBS CARE(HIGH) NAN AMAYA Oct 15, 2024 14:01 ALIDA SIMMONS MD Oct 19, 2024 21:06
[2024-10-15] MEDS ORDERED: VANCOMYCIN PER PHARMACY 0 MG IV SCH (15:15)
[2024-10-15] MEDS: CHLORTHALIDONE 25 MG TAB PO ONE (16:34)
[2024-10-15] MEDS: VANCOMYCIN 1GM/250ML KIT 250 ML IV SCH (16:35)
--- NOTE | 2024-10-15 19:37 | DVHPN2 ---
Progress Note - Dictate Date Seen: Oct 15, 2024 Has the PT tested + for MRSA If YES, has PT been informed?: Yes Medical Necessity Reason Pt with a Central, PICC or Fol: Yes The following are medically ne: PICC Line, Betancourt Catheter Reason for betancourt catheter: Strict I&O Subjective Overnight, patient was febrile T-max 101.6 F. COVID flu negative. Patient experienced multiple episodes of green emesis. She was hypertensive and tachycardic. She was on trach collar for 1 hour, respiratory rate was 34, switch to ventilator. vital signs Vital Sign Date Time Temp Pulse Resp B/P (MAP) Pulse Ox O2 Delivery O2 Flow Rate FiO2 10/15/24 18:35 91 20 172/96 (121) 98 30 10/15/24 18:00 Mechanical Ventilator+ 0 Trach Collar 10/15/24 16:21 99.6 Total Intake and Output 10/14/24 10/14/24 10/15/24 15:00 23:00 07:00 Intake Total 207.5 ml 235 ml 360 ml Output Total 650 ml 675 ml Balance 207.5 ml -415 ml -315 ml medications Current Medications Medications Dose Ordered Sig/Acacia Route Start Time Stop Time Status Last Admin Dose Admin Pantoprazole Sodium 40 mg DAILY IV 09/04/24 10:00 10/15/24 09:56 40 MG Albuterol 2.5 mg Q6HPRN PRN NEB 09/21/24 19:00 10/15/24 18:35 2.5 MG Ipratropium [place] 0.5 mg Q6HPRN PRN NEB 09/21/24 19:00 10/15/24 18:35 0.5 MG Potassium Chloride/Sodium Chloride 1,000 ml @ 50 mls/hr Q20H IV 09/25/24 12:00 Cancel Acetaminophen 650 mg Q6HP PRN GT 09/30/24 11:45 10/14/24 21:03 650 MG Metoclopramide HCl 10 mg TID IV 10/01/24 18:00 10/15/24 05:40 10 MG Lactulose 30 ml Q4HR PO 10/05/24 14:00 10/15/24 09:56 30 ML Enoxaparin Sodium 100 mg BID SC 10/13/24 10:00 10/15/24 09:56 100 MG Enteral Nutritional Formula 1,000 ml 30ML/HR GT 10/12/24 13:00 Morphine Sulfate 1 mg Q4HP PRN IV 10/14/24 10:00 Chlorthalidone 25 mg DAILY@BREAKFAST PO 10/16/24 08:00 Cefepime/Dextrose 50 ml @ 12.5 mls/hr Q8HR IV 10/15/24 22:00 Vancomycin HCl 0 ml @ 0 mls/hr UD IV 10/15/24 15:15 Vancomycin HCl 250 ml @ 200 mls/hr Q12H IV 10/16/24 05:00 objective Obese female patient lying in bed, RASS -2, tracheostomy. General: Morbidly obese, afebrile, palor, mucosae are moist, dilated and sluggish light reflex Cardiovascular: Regular S1 and S2. No murmurs, gallops or rubs. No JVD elevation. Lower and upper extremity 1+ edema noticed. Respiratory: Right-sided crepitations heard, saturating 96% on FiO2 of 30%. Tracheostomy site clean. Abdomen: Abdomen is soft, distended, normal bowel sounds, multiple ventral hernia seen, right-sided dressing removed, no drainage noticed. Stage II decubitus ulcer seen with overlying erythema but no drainage noticed. Midline scar seen. Rectal exam completed, decreased tone, no masses felt, mucoid secretions. Genitourinary: Betancourt catheter seen MSK/skin: Skin is dry and warm Neurological: Pupils are isocoric and reactive. laboratory and microbiology Laboratory Tests 10/15/24 15:04 10/15/24 03:12 Test 10/15/24 03:12 Range/Units Serum Glucose 106 74-106 mg/dL Assessment/Plan Patient is a 63-year-old female presented to the hospital with: Staphylococcus aureus pneumonia ( MRSA) Streptococcus Pneumoniae pneumonia Septic shock resolving bacteremia : coag neg staphylococccus Acute Respiratory Failure [requiring mechanical ventilation] severe hypoxia Metabolic acidosis FEDE Morbidly obese BMI = 40 PE history Recommendations: Antibiotics review Cefepime 09/02- 09/06 Meropenem 09/03-09/05 Ceftriaxone 09/07-ongoing last given 09/18 Vancomycin 09/03- 09/11 Linezolid 09/11- ongoing - 09/17 last given overall, patient has received rx for MRSA pneumonia from 09/03 until now. total 14 days, stopped antibiotics ' monitor respiratory status is stable on vent. Blood culture:co ag neg staph, i think its contaminated. Recent on 09/07 showed no growth Pulmonary on board for vent management Corrected calcium 11.0. Pending FOBT. Pending transfer to [place]. full code prognosis guarded crit time 35 mins spent during the encounter. Thank you for consult and for giving an opportunity to take care of this patient. Dietary Evaluation Review Comments: 1. Consider EN/TPN if NPO >7days 2. Continue plan of care Expected Outcomes/Goals: 1. Pt will meet >75% of estimated needs within 2-3 days ANGELLA REYES MD Oct 15, 2024 19:37
[2024-10-15] MEDS: CEFEPIME 2GM/50ML 50 ML IV SCH (21:57)
--- NOTE | 2024-10-15 23:38 | DVHPN2 ---
Progress Note - Dictate Date Seen: Oct 15, 2024 Has the PT tested + for MRSA If YES, has PT been informed?: Yes Medical Necessity Reason Pt with a Central, PICC or Fol: Yes The following are medically ne: PICC Line, Betancourt Catheter Reason for betancourt catheter: Strict I&O Subjective Patient was seen and evaluated in follow up in the ICU. Patient is intubated and sedated on ventilator. 30% FiO2. Patient is being planned for transfer to [place]. WBC 19.8, K 3. COVID is negative. vital signs Vital Sign Date Time Temp Pulse Resp B/P (MAP) Pulse Ox O2 Delivery O2 Flow Rate FiO2 10/15/24 12:30 99 19 142/83 (102) 99 30 10/15/24 12:00 Mechanical Ventilator+ 0 Trach Collar 10/15/24 12:00 99.6 99.6 Total Intake and Output 10/14/24 10/14/24 10/15/24 15:00 23:00 07:00 Intake Total 207.5 ml 235 ml 360 ml Output Total 650 ml 675 ml Balance 207.5 ml -415 ml -315 ml medications Current Medications Medications Dose Ordered Sig/[place]acia Route Start Time Stop Time Status Last Admin Dose Admin Pantoprazole Sodium 40 mg DAILY IV 09/04/24 10:00 10/15/24 09:56 40 MG Albuterol 2.5 mg Q6HPRN PRN NEB 09/21/24 19:00 10/14/24 18:36 2.5 MG Ipratropium [place] 0.5 mg Q6HPRN PRN NEB 09/21/24 19:00 10/14/24 18:36 0.5 MG Potassium Chloride/Sodium Chloride 1,000 ml @ 50 mls/hr Q20H IV 09/25/24 12:00 Cancel Acetaminophen 650 mg Q6HP PRN GT 09/30/24 11:45 10/14/24 21:03 650 MG Metoclopramide HCl 10 mg TID IV 10/01/24 18:00 10/15/24 05:40 10 MG Lactulose 30 ml Q4HR PO 10/05/24 14:00 10/15/24 09:56 30 ML Enoxaparin Sodium 100 mg BID SC 10/13/24 10:00 10/15/24 09:56 100 MG Enteral Nutritional Formula 1,000 ml 30ML/HR GT 10/12/24 13:00 Morphine Sulfate 1 mg Q4HP PRN IV 10/14/24 10:00 Cefepime HCl 50 ml @ 12.5 mls/hr Q8HR IV 10/15/24 14:00 objective GENERAL: Intubated on ventilator. Morbidly obese. LUNGS: Decreased breath sounds. CARDIOVASCULAR: Heart sounds are good. ABDOMEN: Soft. Morbid pannus limited physical palpation. SKIN: Multiple scars to abdomen. laboratory and microbiology Laboratory Tests 10/15/24 03:12 Test 10/15/24 03:12 Range/Units Serum Glucose 106 74-106 mg/dL Problem List Septic shock. Acute on chronic respiratory failure. NSTEMI type II secondary to above. Rule out structural heart disease. Prolonged QT interval. Morbid obesity, Class 3. Influenza B Assessment/Plan Continued all current supportive medical care. Lactulose. IV antibiotics as ordered. GI prophylactics. Vasopressors for hemodynamic support. Nebulized breathing treatments. Additional plan as per the hospital course. Critical care time of 45 minutes provided to include time spent evaluation of patient at bedside, when appropriate patient/family education for diagnosis, treatment plan, review of pertinent medical information and discussion of care with specialty providers and PCP. Mechanical ventilator parameters, treatment and adjustments have personally been reviewed by me and treatment plan by quality control director has also been reviewed. Dietary Evaluation Review Comments: 1. Consider EN/TPN if NPO >7days 2. Continue plan of care Expected Outcomes/Goals: 1. Pt will meet >75% of estimated needs within 2-3 days Plan discussed with: Other RELL STEWART MD Oct 15, 2024 12:44
[2024-10-16] MEDS ORDERED: VANCOMYCIN 1.25GM/250ML 250 ML IV SCH (05:00)
[2024-10-16] MEDS ORDERED: CHLORTHALIDONE 25 MG TAB PO SCH (08:00)
== END 2024-10-15 23:15 | DRG 5 ==
LOC: EDBD 15:00 → ER 15:00 → OVERFLOW 18:47 → ICU WEST 09-04 19:51
PROVIDERS: ADMIT Student in an Organized Health Care Education/Training Program; ATTEND Student in an Organized Health Care Education/Training Program
PROC: 5A1955Z Respiratory Ventilation, Greater than 96 Consecutive Hours (ICD-10-PCS; 2024-09-02)
PROC: 0BH17EZ Insertion of Endotracheal Airway into Trachea, Via Natural or Artificial Opening (ICD-10-PCS; 2024-09-02)
PROC: 02HV33Z Insertion of Infusion Device into Superior Vena Cava, Percutaneous Approach (ICD-10-PCS; 2024-09-05)
PROC: B548ZZA Ultrasonography of Superior Vena Cava, Guidance (ICD-10-PCS; 2024-09-05)
PROC: 5A1D70Z Performance of Urinary Filtration, Intermittent, Less than 6 Hours Per Day (ICD-10-PCS; 2024-09-05)
PROC: 5A1D70Z Performance of Urinary Filtration, Intermittent, Less than 6 Hours Per Day (ICD-10-PCS; 2024-09-06)
PROC: 0B9B8ZZ Drainage of Left Lower Lobe Bronchus, Via Natural or Artificial Opening Endoscopic (ICD-10-PCS; 2024-09-07)
PROC: 0B9B8ZZ Drainage of Left Lower Lobe Bronchus, Via Natural or Artificial Opening Endoscopic (ICD-10-PCS; 2024-09-08)
PROC: 5A1D70Z Performance of Urinary Filtration, Intermittent, Less than 6 Hours Per Day (ICD-10-PCS; 2024-09-08)
PROC: 5A1D70Z Performance of Urinary Filtration, Intermittent, Less than 6 Hours Per Day (ICD-10-PCS; 2024-09-09)
PROC: 0B968ZZ Drainage of Right Lower Lobe Bronchus, Via Natural or Artificial Opening Endoscopic (ICD-10-PCS; 2024-09-10)
PROC: 0B988ZZ Drainage of Left Upper Lobe Bronchus, Via Natural or Artificial Opening Endoscopic (ICD-10-PCS; 2024-09-10)
PROC: 5A1D70Z Performance of Urinary Filtration, Intermittent, Less than 6 Hours Per Day (ICD-10-PCS; 2024-09-10)
PROC: 5A1D70Z Performance of Urinary Filtration, Intermittent, Less than 6 Hours Per Day (ICD-10-PCS; 2024-09-12)
PROC: 02HV33Z Insertion of Infusion Device into Superior Vena Cava, Percutaneous Approach (ICD-10-PCS; 2024-09-13)
PROC: B548ZZA Ultrasonography of Superior Vena Cava, Guidance (ICD-10-PCS; 2024-09-13)
PROC: 0BH17EZ Insertion of Endotracheal Airway into Trachea, Via Natural or Artificial Opening (ICD-10-PCS; 2024-09-22)
PROC: 5A1955Z Respiratory Ventilation, Greater than 96 Consecutive Hours (ICD-10-PCS; 2024-09-22)
PROC: 0B9D8ZX Drainage of Right Middle Lung Lobe, Via Natural or Artificial Opening Endoscopic, Diagnostic (ICD-10-PCS; 2024-09-22)
PROC: 5A09357 Assistance with Respiratory Ventilation, Less than 24 Consecutive Hours, Continuous Positive Airway Pressure (ICD-10-PCS; 2024-09-22)
PROC: 5A0935A Assistance with Respiratory Ventilation, Less than 24 Consecutive Hours, High Flow/Velocity Cannula (ICD-10-PCS; 2024-09-22)
PROC: 0BJ08ZZ Inspection of Tracheobronchial Tree, Via Natural or Artificial Opening Endoscopic (ICD-10-PCS; 2024-09-29)
PROC: 5A09357 Assistance with Respiratory Ventilation, Less than 24 Consecutive Hours, Continuous Positive Airway Pressure (ICD-10-PCS; 2024-10-03)
PROC: 0BH17EZ Insertion of Endotracheal Airway into Trachea, Via Natural or Artificial Opening (ICD-10-PCS; 2024-10-04)
PROC: 5A1955Z Respiratory Ventilation, Greater than 96 Consecutive Hours (ICD-10-PCS; 2024-10-04)
PROC: 5A09357 Assistance with Respiratory Ventilation, Less than 24 Consecutive Hours, Continuous Positive Airway Pressure (ICD-10-PCS; 2024-10-04)
PROC: 0B110F4 Bypass Trachea to Cutaneous with Tracheostomy Device, Open Approach (ICD-10-PCS; principal; 2024-10-12 07:42)
DX: A41.9 Sepsis, unspecified organism (principal); N17.0 Acute kidney failure with tubular necrosis; R65.21 Severe sepsis with septic shock; J10.08 Influenza due to other identified influenza virus with other specified pneumonia; G93.41 Metabolic encephalopathy; J96.21 Acute and chronic respiratory failure with hypoxia; I50.33 Acute on chronic diastolic (congestive) heart failure; J15.212 Pneumonia due to Methicillin resistant Staphylococcus aureus; K56.609 Unspecified intestinal obstruction, unspecified as to partial versus complete obstruction; I13.0 Hypertensive heart and chronic kidney disease with heart failure and stage 1 through stage 4 chronic kidney disease, or unspecified chronic kidney disease; J13 Pneumonia due to Streptococcus pneumoniae; E87.1 Hypo-osmolality and hyponatremia; E87.4 Mixed disorder of acid-base balance; K72.90 Hepatic failure, unspecified without coma; I21.A1 Myocardial infarction type 2; E66.01 Morbid (severe) obesity due to excess calories; E87.5 Hyperkalemia; F17.200 Nicotine dependence, unspecified, uncomplicated; K43.9 Ventral hernia without obstruction or gangrene; K76.0 Fatty (change of) liver, not elsewhere classified; K80.20 Calculus of gallbladder without cholecystitis without obstruction; Z20.822 Contact with and (suspected) exposure to COVID-19; N39.0 Urinary tract infection, site not specified; T81.89XA Other complications of procedures, not elsewhere classified, initial encounter; E11.22 Type 2 diabetes mellitus with diabetic chronic kidney disease; K59.00 Constipation, unspecified; N18.30 Chronic kidney disease, stage 3 unspecified; T36.8X5A Adverse effect of other systemic antibiotics, initial encounter; J90 Pleural effusion, not elsewhere classified; J44.0 Chronic obstructive pulmonary disease with (acute) lower respiratory infection; E78.1 Pure hyperglyceridemia; N89.8 Other specified noninflammatory disorders of vagina; E87.6 Hypokalemia; E83.42 Hypomagnesemia; E87.0 Hyperosmolality and hypernatremia; E83.52 Hypercalcemia; N73.9 Female pelvic inflammatory disease, unspecified; M62.82 Rhabdomyolysis; Z68.41 Body mass index [BMI] 40.0-44.9, adult; Z86.711 Personal history of pulmonary embolism; Z83.3 Family history of diabetes mellitus; Z82.49 Family history of ischemic heart disease and other diseases of the circulatory system; Z87.442 Personal history of urinary calculi; Z86.718 Personal history of other venous thrombosis and embolism; Y92.89 Other specified places as the place of occurrence of the external cause; Y83.8 Other surgical procedures as the cause of abnormal reaction of the patient, or of later complication, without mention of misadventure at the time of the procedure
CPT/HCPCS: 31500; 31645; 36415; 36556; 36569; 36584; 36600; 70450; 71045; 71250; 74018; 74176; 74250; 76604; 76705; 76937; 80048; 80053; 80061; 80074; 80202; 81001; 82040; 82140; 82306; 82550; 82565; 82570; 82805; 82962; 83036; 83605; 83615; 83690; 83735; 83880; 83970; 84100; 84132; 84156; 84295; 84300; 84443; 84478; 84484; 84550; 85007; 85025; 85027; 85610; 85652; 85730; 86141; 86703; 86850; 86900; 86901; 87040; 87070; 87077; 87081; 87086; 87088; 87186; 87205; 87426; 87804; 90935; 92610; 93005; 93306; 93970; 94002; 94003; 94640; 94660; G0378; J0131; J0171; J0690; J0692; J1100; J1450; J1642; J1885; J1956; J2003; J2185; J2250; J2405; J2470; J2704; J3480; J7060; P9047

== ENCOUNTER 2025-07-14 20:29 | Inpatient (IN) | payer MEDICAID ==
[~2025-07-14] VITALS: Ht 157.5 cm; Wt 111.0 kg
--- NOTE | 2025-07-14 20:55 | ED.PDOC ---
GI ASSESSMENT HPI Comments 64-year-old female who came to ER for abdominal pain. Patient has history of ventral hernias and small bowel obstruction, status post hernia repair. Patient admits she was in the bathroom earlier, straining, when her hernia popped out of her left upper quadrant. Complaining of abdominal pain and nausea. Patient was given Zofran and fentanyl while EN route to the ER Chief Complaint: Abdominal Pain Time Seen by MD: 20:55 Reviewed Notes: Nurses Notes Allergies: Coded Allergies: Hydrocodone (Verified Allergy, Mild, 09/02/24) Itchy Home Meds Active Scripts Tamsulosin Hcl (Flomax) 0.4 Mg Cap, 1 CAP PO HS, #10 CAP 11 Refills Prov:RADHA DE LA TORRE MD 02/25/24 Levofloxacin Hemihydrate (LEVAQUIN 500 MG) 500 Mg Tab, 1 TAB PO DAILY, #7 TAB Prov:RADHA DE LA TORRE MD 02/25/24 Information Source: Patient Mode of Arrival: EMS Timing: Hours Duration: Since onset Past Medical History PAST MEDICAL HISTORY: AFIB, CHF, COPD, HTN, Kidney Stones Past Medical History (Other): Ventral wall hernia, small bowel obstruction Surgical History: Hernia Repair HOSPITAL RECEPTIONIST History: Denies all HOSPITAL RECEPTIONIST Hx Family History Family History: No family hx of HTN Social History Smoker: Non-Smoker Alcohol: Rarely Drugs: Denies Drug Use Lives In: Home Constitutional: denies: chills, diaphoresis, fatigue, fever, malaise, sweats, weakness, others EENTM: denies: blurred vision, double vision, ear bleeding, ear discharge, ear drainage, ear pain, ear ringing, eye pain, eye redness, hearing loss, mouth pain, mouth swelling, nasal discharge, nose bleeding, nose congestion, nose pain, photophobia, tearing, throat pain, throat swelling, voice changes, others Respiratory: denies: cough, hemoptysis, orthopnea, SOB at rest, shortness of breath, SOB with excertion, stridor, wheezing, others Cardiovascular: denies: chest pain, dizzy spells, diaphoresis, Dyspnea on exertion, edema, irregular heart beat, left arm pain, lightheadedness, palpitations, PND, syncope, others Gastrointestinal: denies: abdomen distended, abdominal pain, blood streaked bowels, constipated, diarrhea, dysphagia, difficulty swallowing, hematemesis, melena, nausea, poor appetite, poor fluid intake, rectal bleeding, rectal pain, vomiting, others Genitourinary: denies: abnormal vagina bleeding, burning, dyspareunia, dysuria, flank pain, frequency, hematuria, incontinence, pain, , vagina discharge, urgency, others Neurological: denies: dizziness, fainting, headache, left sided numbness, left sided weakness, numbness, paresthesia, pre-existing deficit, right sided numbness, right sided weakness, seizure, speech problems, tingling, tremors, weakness, others Musculoskeletal: denies: back pain, gout, joint pain, joint swelling, muscle pain, muscle stiffness, neck pain, others Integumetry: denies: bruises, change in color, change in hair/nails, dryness, laceration, lesions, lumps, rash, wounds, others Allergic/Immunocompromised: denies: Difficulty Healing, Frequent Infections, Hives, Itching, others Hematologic/Lymphatic: denies: anemia, blood clots, easy bleeding, easy bruising, swollen glands, others Endocrine: denies: excessive hunger, excessive sweating, excessive thirst, excessive urination, flushing, intolerance to cold, intolerance to heat, unexplained weight gain, unexplained weight loss, others Psychiatric: denies: anxiety, bipolar disorder, depression, hopeless, panic disorder, schizophrenia, sleepless, suicidal, others Physical Exam General Appearance: No Apparent Distress, Normal HEENT: Normal ENT Inspection, Pharynx Normal, TMs Normal Neck: Full Range of Motion, Non-Tender, Normal, Normal Inspection Respiratory: Chest Non-Tender, Lungs Clear, No Accessory Muscle Use, No Respiratory Distress, Normal Breath Sounds Cardiovascular: No Edema, No JVD, No Murmur, No Gallop, Normal Peripheral Pulses, Regular Rate/Rhythm Breast Exam: Deferred Gastrointestinal: No Organomegaly, Non Tender, No Pulsatile Mass, Normal Bowel Sounds, Soft, Other (Protruding hernia left upper quadrant) Genitalia: Deferred Pelvic: Deferred Rectal: Deferred Extremities: No calf tenderness, Normal capillary refill, Normal inspection, Normal range of motion, Non-tender, No pedal edema Musculoskeletal : Apperance: Normal Neurologic: Alert, electrician helper automotive II-XII nml as Tested, No Motor Deficits, Normal Affect, Normal Mood, No Sensory Deficits Cerebellar Function: Normal Reflexes: Normal Skin: Dry, Normal Color, Warm Lymphatic: No Adenopathy EKG EKG : Pulse Rate (adult): 68 Cardiac Rhythm: NSR Was a procedure done? Was a procedure done?: No GI differential Dx Differential Diagnosis: Bowel Obstruction, Constipation, Diverticular disease, Gastritis/PUD, Hernia X-Ray, Labs, Meds, VS Vital Signs Date Time Temp Pulse Resp B/P (MAP) Pulse Ox O2 Delivery O2 Flow Rate FiO2 07/14/25 23:02 72 18 149/93 07/14/25 22:36 97.5 72 18 149/93 (111) 98 97.5 07/14/25 20:55 68 07/14/25 20:48 97.3 70 20 176/104 98 97.3 07/14/25 20:32 68 Lab Test 07/14/25 21:00 Range/Units White Blood Count 13.4 H 4.4-10.8 10^3/uL Red Blood Count 5.31 H 4.0-5.20 10^6/uL Hemoglobin 15.2 12.2-16.2 g/dL Hematocrit 45.8 36.0-46.0 % Mean Corpuscular Volume 86.2 80.0-100.0 fL Mean Corpuscular Hemoglobin 28.5 28.0-32.0 pg Mean Corpuscular Hemoglobin Concent 33.1 32.0-36.0 g/dL Red Cell Distribution Width 14.4 H 11.8-14.3 % Platelet Count 343 140-450 10^3/uL Mean Platelet Volume 8.0 6.9-10.8 fL Neutrophils (%) (Auto) 80.3 H 37.0-80.0 % Lymphocytes (%) (Auto) 11.2 10.0-50.0 % Monocytes (%) (Auto) 5.9 0.0-12.0 % Eosinophils (%) (Auto) 2.2 0.0-7.0 % Basophils (%) (Auto) 0.4 0.0-2.0 % Neutrophils # (Auto) 10.8 H 1.6-8.6 10 ^3/uL Lymphocytes # (Auto) 1.5 0.4-5.4 10 ^3/uL Monocytes # (Auto) 0.8 0-1.3 10 ^3/uL Eosinophils # (Auto) 0.3 0-0.8 10 ^3/uL Basophils # (Auto) 0.1 0-0.2 10 ^3/uL Nucleated Red Blood Cells 0.0 % Sodium Level 147 H 136-145 mmol/L Potassium Level 4.2 3.5-5.1 mmol/L Chloride Level 109 H 98-107 mmol/L Carbon Dioxide Level 29 20-31 mmol/L Anion Gap 9 5-15 Blood Urea Nitrogen 11 9-23 mg/dL Creatinine 0.88 0.550-1.02 mg/dL Glomerular Filtration Rate Calc 74 >90 mL/min BUN/Creatinine Ratio 12.5 10.0-20.0 Serum Glucose 101 74-106 mg/dL Calcium Level 10.0 8.7-10.4 mg/dL Total Bilirubin 0.5 0.2-1.0 mg/dL Aspartate Amino Transferase (AST) 15 13-40 U/L Alanine Aminotransferase (ALT) 15 7-40 U/L Alkaline Phosphatase 200 H 46-116 U/L Total Protein 6.8 5.7-8.2 g/dL Albumin 4.2 3.2-4.8 g/dL Lipase 27 12-53 U/L Current Medications Medications (Trade) Dose Ordered Sig/Acacia Route Start Time Stop Time Status Last Admin Ondansetron HCl (Zofran) 4 mg ONCE ONCE IV 07/14/25 21:00 07/14/25 21:01 DC 07/14/25 23:03 Hydromorphone HCl (Dilaudid Injection) 1 mg ONCE ONCE IV 07/14/25 21:00 07/14/25 21:01 DC 07/14/25 23:02 Sodium Chloride 1,000 ml @ 1,000 mls/hr Q1H ONCE IVB 07/14/25 21:00 07/14/25 21:59 DC 07/14/25 23:00 Time of 1ST Reevaluation: 20:49 Reevaluation 1ST: Unchanged Patient Education/Counseling: Diagnosis, Treatment Family Education/Counseling: No Family Present SEPSIS Sepsis Screen Physician Orders Electrocardigram (07/14/25 20:43) Urinalysis (07/14/25 20:48) Ct Ab Pel With Iv Con Only (07/14/25 20:48) Vital Signs Date Time Temp Pulse Resp B/P (MAP) Pulse Ox O2 Delivery O2 Flow Rate FiO2 07/14/25 23:02 72 18 149/93 07/14/25 22:36 97.5 72 18 149/93 (111) 98 97.5 07/14/25 20:55 68 07/14/25 20:48 97.3 70 20 176/104 98 97.3 07/14/25 20:32 68 Laboratory Tests Test 07/14/25 21:00 White Blood Count 13.4 10^3/uL (4.4-10.8) H Medications Medications Dose Ordered Sig/Acacia Route Start Time Stop Time Status Last Admin Dose Admin Hydromorphone HCl 1 mg ONCE ONCE IV 07/14/25 21:00 07/14/25 21:01 DC 07/14/25 23:02 Ondansetron HCl 4 mg ONCE ONCE IV 07/14/25 21:00 07/14/25 21:01 DC 07/14/25 23:03 Sodium Chloride 1,000 ml @ 1,000 mls/hr Q1H ONCE IVB 07/14/25 21:00 07/14/25 21:59 DC 07/14/25 23:00 Departure 1 Departure Time of Disposition: 00:38 Impression: Primary Impression: Acute abdominal pain Additional Impressions: Ventral hernia Bowel obstruction Disposition: HOME / SELF CARE / HOMELESS Condition: Stable Discharged With: Self Comments 64-year-old female with a history of ventral hernias now with severe abdominal pain and tenderness at the hernia site. Lab results reviewed. White blood cell count elevated at 13. Mild hypernatremia at 1:47 a.m.. Chloride elevated 109. Alk-phos elevated 200. CT of the abdomen and pelvis suggest bowel obstruction. Patient will need to be admitted for ventral hernias and bowel obstruction for supportive care and further workup and surgical consultation. Critical Care Note Critical Care Time?: No Stability Stability form required: No Heart Score Heart Score: Heart Score Response (Comments) Value History N/A 0 EKG N/A 0 Age N/A 0 Risk Factors N/A 0 Troponin N/A 0 Total 0 I personally scribed for STEVAN CRAWLEY MD ([email or web address]) on 07/14/25 at 20:55. Electronically submitted by Taz Redding ([email or web address]). STEVAN CRAWLEY MD Jul 14, 2025 20:55
[2025-07-14 21:27] LABS: Hematocrit 45.8 % (36.0-46.0); Hemoglobin 15.2 g/dL (12.2-16.2); Mean Corpuscular Hemoglobin 28.5 pg (28.0-32.0); Mean Corpuscular Volume 86.2 fL (80.0-100.0); Nucleated Red Blood Cells % 0.0 %
[2025-07-14 21:43] LABS: Alanine Aminotransferase 15 U/L (7-40); Albumin 4.2 g/dL (3.2-4.8); Anion Gap 9 (5-15); BUN/Creatinine Ratio 12.5 (10.0-20.0); Bilirubin, Total 0.5 mg/dL (0.2-1.0); Blood Urea Nitrogen 11 mg/dL (9-23); Calcium 10.0 mg/dL (8.7-10.4); Carbon Dioxide 29 mmol/L (20-31); Glucose 101 mg/dL (74-106); Lipase 27 U/L (12-53); Potassium 4.2 mmol/L (3.5-5.1); Total Protein 6.8 g/dL (5.7-8.2)
[2025-07-14 22:03] LABS: Alkaline Phosphatase 200 U/L (46-116); Chloride 109 mmol/L (98-107); Sodium 147 mmol/L (136-145)
[2025-07-14] MEDS: SODIUM CHLORIDE 0.9% 1,000 ML IVB ONE (23:00)
[2025-07-14] MEDS: HYDROmorphone HCL 2 MG/ML VL/or syr IV ONE (23:02)
[2025-07-14] MEDS: ONDANSETRON HCL 4 MG/2 ML VIAL IV ONE (23:03)
--- NOTE | 2025-07-14 23:57 | DVH ---
Exam: CT CT AB PEL WITH IV CON ONLY History: abd pain ventral hernia Comparison Study: CT CT AB PEL WO CON-NO ORAL OR IV on DOS: 09/03/24, CT CT AB PEL WO CON-NO ORAL OR IV on DOS: 09/03/24, CT CT AB PEL WO CON-NO ORAL OR IV on DOS: 02/21/24 TECHNIQUE: A digital mission worker image was obtained. During the uneventful, intravenous administration of c ontrast material, multislice data acquisition was obtained through the abdomen and pelvis. The data s et was subsequently reconstructed into multiplanar reformats. RADIATION DOSE: CTDI vol 25.26 mGy. DLP 1465.24 mGy.cm Findings: Lungs: Nonspecific mild ground-glass opacities are seen at the lung bases. Scattered atelectasis / s carring. Trace bilateral pleural effusions. Liver: Unremarkable. Spleen: Unremarkable. Pancreas: Pancreatic acinar atrophy. Gallbladder: Unremarkable. Adrenals: Unremarkable Kidneys: Unremarkable. Pelvic Viscera: Unremarkable. Vasculature: Mild atherosclerotic aortoiliac calcification. Retroperitoneum: Unremarkable. Bowel: There is wide mouth ventral abdominal wall hernia containing bowel, with bowel extending outsi de field of view of this examination, limiting assessment. A smaller left paracentral superior ventra l abdominal wall hernia is seen containing large bowel, with dilated large bowel seen proximal to thi s point and the distal bowel appearing decompressed. Musculoskeletal: Grade 1 anterolisthesis of L4 on L5. Soft tissues: Wide mouth ventral abdominal wall hernias containing bowel, with stranding seen about t he inferior ventral abdominal wall, incompletely assessed. Impression: 1. Findings as above raising the possibility of a large-bowel obstruction in the appropriate clinical setting, on the basis of ventral abdominal wall hernias. Please note, the bowel is incompletely imag ed on this examination and a repeat examination is suggested as clinically indicated. 2. Stranding is seen within the ventral abdominal wall, infectious/inflammatory process cannot be exc luded. 3. Nonspecific scattered ground-glass opacities at the lung bases, infectious/ inflammatory process c annot be excluded. 4. Additional findings as detailed.
[2025-07-15] VITALS (10 sets, daily range): BP systolic 128–142; BP diastolic 64–71; PULSE 73–99; RESP 12–19; TEMP 97.8–99.7; O2SAT 90–98
--- NOTE | 2025-07-15 00:49 | DVHHPRES ---
History of Present Illness Resident Creating Document: EV CABRAL RESIDENT History of Present Illness Rene Armendariz is a 64-year-old female patient who presents to ED with chief complaint of cramping abdominal pain which started on 07/14/2025 at 3:00 p.m. abruptly, associated with nausea and only one episode of vomiting with nonbloody emesis. Patient reports history of umbilical hernia since 2017 with multiple surgeries (four hernia repairs, last one two years ago), but she was recently admitted in 08/2024 due to sepsis secondary to bowel obstruction, requiring tracheostomy and rehabilitation LTAC ([facility], discharged on 01/2025). Patient feels similar symptoms as when she had sepsis secondary to bowel obstruction on 08/2024. Denies any other associated symptoms including fever, chills and syncope. Past medical history: Umbilical hernia initially diagnosed in 2017 requiring multiple surgeries for hernia repair, last one two years ago. Hospitalized in [facility] on 08/2024 due to sepsis secondary to bowel obstruction requiring endotracheal intubation with tracheostomy, and posterior recuperation in LTAC. 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 Ex tobacco abuse (50 pack-year history) quit approximately 10 years ago. Methamphetamine abuse (last time she consume was two weeks ago). Denies any other drug and alcohol abuse Allergy: [place] Home medication: Does not recall. Per EMR levofloxacin and tamsulosin Patient seen and examined at bedside. Patient currently is in acute distress, asking for medication, educated her on avoiding opiates due to probable bowel obstruction, indicated NSAIDs (normal kidney function). Also indicated NG tube, but patient refused to have NG tube placed. Have explained recent in V5 and G- tube and consequences of not being compliant, patient understands risk. Patient will be admitted to telemetry for further management Past Medical History Per HPI Past Surgical History Per HPI Family History Per HPI Past Social History Per HPI Review of Systems Review of Systems Per HPI Allergies: Coded Allergies: Hydrocodone (Verified Allergy, Mild, 09/02/24) Itchy Exam Vital Signs Vital Signs Date Time Temp Pulse Resp B/P (MAP) Pulse Ox O2 Delivery O2 Flow Rate FiO2 07/14/25 23:02 72 18 149/93 07/14/25 22:36 97.5 98 97.5 Exam Patient lying in bed, in moderate acute distress General: Lucid, afebrile, mucosae are dry Cardiovascular: Normal S1 and S2. No murmurs, gallops or rubs Respiratory: Normal ventilation mechanics. Clear lung sounds on auscultation Abdomen: Distended, diffuse tenderness especially in umbilical area, palpable bowel (no musculature), organomegaly could not be evaluated due to prominent umbilical hernia, increased bowel sounds MSK/skin: Mobilizes 4 limbs. Skin is dry and warm. Bilateral infrapatellar non pitting edema. Neurological: Oriented in 3 spheres. No motor no sensitive deficits. Pupils are isocoric and reactive Labs/Xrays Labs Test 07/14/25 21:00 Range/Units White Blood Count 13.4 H 4.4-10.8 10^3/uL Red Blood Count 5.31 H 4.0-5.20 10^6/uL Hemoglobin 15.2 12.2-16.2 g/dL Hematocrit 45.8 36.0-46.0 % Mean Corpuscular Volume 86.2 80.0-100.0 fL Mean Corpuscular Hemoglobin 28.5 28.0-32.0 pg Mean Corpuscular Hemoglobin Concent 33.1 32.0-36.0 g/dL Red Cell Distribution Width 14.4 H 11.8-14.3 % Platelet Count 343 140-450 10^3/uL Mean Platelet Volume 8.0 6.9-10.8 fL Neutrophils (%) (Auto) 80.3 H 37.0-80.0 % Lymphocytes (%) (Auto) 11.2 10.0-50.0 % Monocytes (%) (Auto) 5.9 0.0-12.0 % Eosinophils (%) (Auto) 2.2 0.0-7.0 % Basophils (%) (Auto) 0.4 0.0-2.0 % Neutrophils # (Auto) 10.8 H 1.6-8.6 10 ^3/uL Lymphocytes # (Auto) 1.5 0.4-5.4 10 ^3/uL Monocytes # (Auto) 0.8 0-1.3 10 ^3/uL Eosinophils # (Auto) 0.3 0-0.8 10 ^3/uL Basophils # (Auto) 0.1 0-0.2 10 ^3/uL Nucleated Red Blood Cells 0.0 % Sodium Level 147 H 136-145 mmol/L Potassium Level 4.2 3.5-5.1 mmol/L Chloride Level 109 H 98-107 mmol/L Carbon Dioxide Level 29 20-31 mmol/L Anion Gap 9 5-15 Blood Urea Nitrogen 11 9-23 mg/dL Creatinine 0.88 0.550-1.02 mg/dL Glomerular Filtration Rate Calc 74 >90 mL/min BUN/Creatinine Ratio 12.5 10.0-20.0 Serum Glucose 101 74-106 mg/dL Calcium Level 10.0 8.7-10.4 mg/dL Total Bilirubin 0.5 0.2-1.0 mg/dL Aspartate Amino Transferase (AST) 15 13-40 U/L Alanine Aminotransferase (ALT) 15 7-40 U/L Alkaline Phosphatase 200 H 46-116 U/L Total Protein 6.8 5.7-8.2 g/dL Albumin 4.2 3.2-4.8 g/dL Lipase 27 12-53 U/L SEPSIS Sepsis Screen Date sepsis recognized/suspect: Jul 14, 2025 Time Sepsis recognized/suspect: 2042 Recent Procedure: No On Antibiotic Therapy: No Respiratory Rate >20: No Heart Rate >90: No Temp<36 C (96.8 F) or >38.3 C: No SBP <90 or MAP <65 mmHG: No New Acute Mental Status Change: No Is the patient on CPAP, BIPAP,: No Physician Orders Electrocardigram (07/14/25 20:43) Urinalysis (07/14/25 20:48) Ct Ab Pel With Iv Con Only (07/14/25 20:48) Vital Signs Date Time Temp Pulse Resp B/P (MAP) Pulse Ox O2 Delivery O2 Flow Rate FiO2 07/14/25 23:02 72 18 149/93 07/14/25 22:36 97.5 72 18 149/93 (111) 98 97.5 07/14/25 20:55 68 07/14/25 20:48 97.3 70 20 176/104 98 97.3 07/14/25 20:32 68 Laboratory Tests Test 07/14/25 21:00 White Blood Count 13.4 10^3/uL (4.4-10.8) H Medications Medications Dose Ordered Sig/Acacia Route Start Time Stop Time Status Last Admin Dose Admin Hydromorphone HCl 1 mg ONCE ONCE IV 07/14/25 21:00 07/14/25 21:01 DC 07/14/25 23:02 1 MG Ondansetron HCl 4 mg ONCE ONCE IV 07/14/25 21:00 07/14/25 21:01 DC 07/14/25 23:03 4 MG Sodium Chloride 1,000 ml @ 1,000 mls/hr Q1H ONCE IVB 07/14/25 21:00 07/14/25 21:59 DC 07/14/25 23:00 1,000 MLS/HR Assessment/Plan Assessment/Plan Sepsis secondary to bowel obstruction Large bowel obstruction Complicated umbilical hernia - s/p multiple hernia repair surgeries Completed abdomen and pelvis CT which shows possible large bowel obstruction and ventral abdominal wall hernias, with stranding within the ventral abdominal wall, nonspecific ground-glass opacities at the lung bases. Indicated bowel rest with NPO, also indicated NG tube placement but patient refused. Consulted Surgeon for further evaluation (all her previous surgeries completed in [facility]) Currently under empiric IV antibiotics (Ceftriaxone and Metronidazole) Ordered pancultures (blood, urine and sputum) Optimized pain management. Avoiding opioids (can worsen bowel obstruction). Indicated NSAIDs at this time and NG tube (patient refused the later) COPD not exacerbated - with no home O2 requirement Indicated bronchodilators, no need for IV steroids Chronic diastolic congestive heart failure (LVEF 65%) Last echocardiogram completed in 2023: mild LVH, LVEF 65%, posterior mitral leaflet calcified, moderately dilated RV and RA Ordered new echocardiogram for eventual pre-op clearance Patient does nor recall home medication Methamphetamine abuse Ex-tobacco abuse (50 pack year history) Counseled strongly on cessation of polysubstance abuse for over 16 minutes. She quit tobacco over 10 years ago. Last methamphetamine use 2 weeks ago. Morbid obesity Gave advice on healthy life style habits Goals of care discussed with patient for over 18 minutes: full code status Case discussed with Dr Ann, patient and nurses: Patient admitted to telemetry. Indicated NPO, NG tube, IV antibiotics, pain management and IV fluids. Patient refused NG tube placement (have educated patient on importance of placing tube, patient takes full responsibilities of her actions). Consulted surgery for evaluation. Patient has poor prognosis Plan discussed with: Patient, Other (Nurses) Date of Service: Jul 15, 2025 Billing Provider: JESSICA BONDS MD Common Visit Codes: [id number] INP/OBS CARE (HIGH) Secondary Visit Codes: [id number] CARE PLAN 30 MINUTES EV CABRAL RESIDENT Jul 15, 2025 00:49
[2025-07-15] MEDS: ACETAMINOPHEN 325 MG TAB PO PRN (03:02)
[2025-07-15] MEDS ORDERED: ONDANSETRON HCL 4 MG/2 ML VIAL IV PRN (03:15)
[2025-07-15] MEDS: SODIUM CHLORIDE 0.9% 250 ML IV ONE (03:15)
[2025-07-15 04:03] LABS: Hematocrit 50.9 % (36.0-46.0); Hemoglobin 16.8 g/dL (12.2-16.2); Mean Corpuscular Hemoglobin 28.8 pg (28.0-32.0); Mean Corpuscular Volume 87.5 fL (80.0-100.0); Nucleated Red Blood Cells % 0.1 %
[2025-07-15] MEDS: PANTOPRAZOLE 40 MG/10 ML VIAL INJ IV ONE (04:23)
[2025-07-15 04:38] LABS: Alanine Aminotransferase 17 U/L (7-40); Anion Gap 12 (5-15); BUN/Creatinine Ratio 10.8 (10.0-20.0); Blood Urea Nitrogen 9 mg/dL (9-23); Calcium 10.3 mg/dL (8.7-10.4); Carbon Dioxide 24 mmol/L (20-31); Magnesium 2.3 mg/dL (1.6-2.6); Potassium 4.0 mmol/L (3.5-5.1); Total Protein 7.4 g/dL (5.7-8.2)
[2025-07-15 04:39] LABS: Albumin 4.6 g/dL (3.2-4.8)
[2025-07-15 04:40] LABS: Bilirubin, Total 0.7 mg/dL (0.2-1.0)
[2025-07-15 04:49] LABS: Alkaline Phosphatase 221 U/L (46-116); Chloride 109 mmol/L (98-107); Glucose 124 mg/dL (74-106); Sodium 145 mmol/L (136-145)
[2025-07-15 05:09] LABS: Lactic Acid w/Reflex 2.3 mmol/L (0.4-2.0)
[2025-07-15 05:21] LABS: Triglycerides 107 mg/dL (< 150)
[2025-07-15 05:23] LABS: Cholesterol 174 mg/dL (< 200); HDL Cholesterol 46 mg/dL (40-59)
--- NOTE | 2025-07-15 05:40 | DVH ---
CHEST RADIOGRAPH Indication: CHF Technique: Single frontal view of the chest was obtained Comparison: XY CHEST XRAY 1 VIEW on DOS: 10/15/24 FINDINGS: Lines and Tubes: None Lungs: There is mild bilateral increased interstitial prominence. No focal airspace disease. Pleura: No effusion. No pneumothorax. Cardiomediastinal contours: Unremarkable. Bones: No acute osseous abnormality. IMPRESSION: 1. Mild bilateral increased interstitial prominence which may be due to mild pulmonary vascular conge stion or viral pneumonitis.
[2025-07-15] MEDS: KETOROLAC TROMETH 30 MG/ML 1ML VIAL IV PRN (06:47)
[2025-07-15 07:04] LABS: INR 0.99 (0.9-1.15); Partial Thromboplastin Time 25.1 SEC (24.5-34.5); Prothrombin Time 10.5 sec (9.3-11.8)
[2025-07-15] MEDS: LEVALBUTEROL HCL 1.25 MG/3 ML NEB NEB SCH (07:14)
[2025-07-15] MEDS: IPRATROPIUM BROM 0.5 MG/2.5ML INH SOL NEB SCH (07:14)
[2025-07-15] MEDS: PANTOPRAZOLE 40 MG/10 ML VIAL INJ IV SCH (10:11)
[2025-07-15] MEDS: ENOXAPARIN SOD 40 MG/0.4 ML SYRINGE SC SCH (10:11)
--- NOTE | 2025-07-15 12:03 | ECG ---
[facility] Test Date: 2025-07-14 Test Time: 20:32:38 Pat Name: JJ GLYNN Department: [facility] ED Room: [address] [place] [address] Gender: F Laborer/Grade Check: MARJORIE : 1960 Requested By: STEVAN CRAWLEY Order Number: [id number] Reading MD: Ben Hilton Measurements Intervals [place] Rate: 68 P: 37 MO: 156 QRS: 80 QRSD: 90 T: 53 QT: 394 QTc: 420 Interpretive Statements Sinus rhythm Electronically Signed On 07-15-2025 12:19:00 PDT by Ben Hilton Please click the below link to view image of tracing.
[2025-07-15] MEDS: SODIUM CHLORIDE 0.9% 1,000 ML IV SCH (12:26)
[2025-07-16] VITALS (15 sets, daily range): BP systolic 110–136; BP diastolic 65–81; PULSE 72–85; RESP 16–20; TEMP 97.6–98.8; O2SAT 92–98
--- NOTE | 2025-07-16 00:54 | DVHSR ---
APPROVED REPORT EXAM: Two-dimensional and M-mode echocardiogram with Doppler and color Doppler. Blood Pressure: 142/70 mmHg INDICATION Pre-Op RISK FACTORS Height: 62, Weight: 250 DIMENSIONS LVDd (3.8-5.7cm)LA (2D) (1.9-4.0cm)Aortic Root3.5 (2.0-3.7cm) LVDs (2.5-4.0cm)LA (MM) (1.9-4.0cm)Aortic Cusp Exc1.8 (1.5-2.0cm) EF (%) 62.0 (55-70%)Rt. Atrium (1.9-4.0cm)Asc. Aorta cm Mitral Valve MitralMitral Stenosis E wave1.04m/sMV Mean GR.mmHg A wave1.15m/sMV Peak GR.mmHg E/A ratio0.92D MVAcm2 DECEL [id number] 1/2 [id number] IVRTmsDop MVA3.35cm2 Aortic Valve Aortic ValveAortic Stenosis V11.58m/Castillo Mean GR.6mmHg V21.81m/[place] Peak GR.13mmHg LVOT Diameter2.0 (1.8-2.4cm)Doppler AVA2.74cm2 Pulmonic Valve V21.24m/s Tricuspid Valve TR Velocity2.83m/s [id number] Other Information Technically limited study due to body habitus, patient position, patient moving and patient sensitiv e to touch. Conclusion MODERATELY DILATED RV NORMAL LV EF IS 65% NORMAL VALVES POSTERIOR MV CALCIFIED NO EFFUSION
[2025-07-16 06:48] LABS: Urine Budding Yeast OCCASIONAL /hpf (None Seen); Urine Protein, UAD TRACE (Negative)
[2025-07-16 06:54] LABS: Cannabinoid Screen, Urine Pos (NEGATIVE)
[2025-07-16 06:59] LABS: Amphetamine Screen, Urine Pos (NEGATIVE); Barbiturate Scree,Urine Neg (NEGATIVE); Benzodiazephine Screen, Urine Neg (NEGATIVE); Cocaine Screen, Urine Neg (NEGATIVE); Opiate Scree,Urine Neg (NEGATIVE); Phencyclidine Screen, Urine Neg (NEGATIVE)
[2025-07-17] VITALS (13 sets, daily range): BP systolic 126–140; BP diastolic 75–94; PULSE 67–84; RESP 14–18; TEMP 97.1–98.9; O2SAT 91–97
[2025-07-17] MEDS: IPRATROPIUM BROM 0.5 MG/2.5ML INH SOL NEB SCH (06:28)
--- NOTE | 2025-07-17 12:37 | DVHINCON2 ---
Date of service: Jul 17, 2025 Family History: Diabetes mellitus G8 BROTHER FH: hypertension G8 FATHER Allergies: Coded Allergies: Hydrocodone (Verified Allergy, Mild, 09/02/24) Itchy Home Meds Active Scripts Tamsulosin Hcl (Flomax) 0.4 Mg Cap, 1 CAP PO HS, #10 CAP 11 Refills Prov:RADHA DE LA TORRE MD 02/25/24 Levofloxacin Hemihydrate (LEVAQUIN 500 MG) 500 Mg Tab, 1 TAB PO DAILY, #7 TAB Prov:RADHA DE LA TORRE MD 02/25/24 Current Medications Current Medications Medications (Trade) Dose Ordered Sig/[place] Route PRN Reason Start Time Stop Time Status Last Admin Ipratropium [place] (Atrovent Medneb) 0.5 mg Q6HR NEB 07/17/25 06:00 07/17/25 06:28 Vital Signs Vital Signs Date Time Temp Pulse Resp B/P (MAP) Pulse Ox O2 Delivery O2 Flow Rate FiO2 07/17/25 10:00 94 Nasal Cannula* 3 32 07/17/25 09:00 97.1 72 14 126/78 (94) 97.1 Labs/Diagnostic Data Labs Test 07/15/25 10:13 07/15/25 06:44 07/15/25 05:34 07/15/25 03:32 Range/Units Urine Color Light-orange Yellow Urine Clarity Clear Clear Urine pH 5.5 5.0-9.0 Urine Specific [place] 1.035 1.001-1.035 Urine Protein Trace H Negative Urine Ketones Trace Negative Urine Blood Negative Negative /uL Urine Nitrite Negative Negative Urine Bilirubin Negative Negative Urine Urobilinogen Normal Negative mg/dL Urine Leukocyte Esterase Negative Negative /uL Urine RBC <1 0 - 4 /hpf Urine Microscopic WBC < 1 0-5 /HPF Urine Squamous Epithelial Cells Few <5 /hpf Urine Bacteria Few H None Seen /hpf Urine Mucus Few None Seen Urine Yeast (Budding) Occasional None Seen /hpf Urine Glucose Normal Normal mg/dL Urine Opiates Screen Neg NEGATIVE Urine Fentanyl Screen Pos NEGATIVE Urine Barbiturates Screen Neg NEGATIVE Urine Phencyclidine Screen Neg NEGATIVE Urine Amphetamines Screen Pos NEGATIVE Urine Benzodiazepines Screen Neg NEGATIVE Urine Cocaine Screen Neg NEGATIVE Urine Cannabinoids Screen Pos NEGATIVE Prothrombin Time 10.5 9.3-11.8 sec Prothrombin Time INR 0.99 0.9-1.15 Activated Partial Thromboplast Time 25.1 24.5-34.5 SEC Lactic Acid Level 1.8 0.4-2.0 mmol/L White Blood Count 17.7 #H 4.4-10.8 10^3/uL Red Blood Count 5.82 H 4.0-5.20 10^6/uL Hemoglobin 16.8 H 12.2-16.2 g/dL Hematocrit 50.9 #H 36.0-46.0 % Mean Corpuscular Volume 87.5 80.0-100.0 fL Mean Corpuscular Hemoglobin 28.8 28.0-32.0 pg Mean Corpuscular Hemoglobin Concent 33.0 32.0-36.0 g/dL Red Cell Distribution Width 14.5 H 11.8-14.3 % Platelet Count 340 140-450 10^3/uL Mean Platelet Volume 7.9 6.9-10.8 fL Neutrophils (%) (Auto) 87.2 H 37.0-80.0 % Lymphocytes (%) (Auto) 6.3 L 10.0-50.0 % Monocytes (%) (Auto) 5.8 0.0-12.0 % Eosinophils (%) (Auto) 0.2 0.0-7.0 % Basophils (%) (Auto) 0.5 0.0-2.0 % Neutrophils # (Auto) 15.4 H 1.6-8.6 10 ^3/uL Lymphocytes # (Auto) 1.1 0.4-5.4 10 ^3/uL Monocytes # (Auto) 1.0 0-1.3 10 ^3/uL Eosinophils # (Auto) 0 0-0.8 10 ^3/uL Basophils # (Auto) 0.1 0-0.2 10 ^3/uL Nucleated Red Blood Cells 0.1 % Sodium Level 145 136-145 mmol/L Potassium Level 4.0 3.5-5.1 mmol/L Chloride Level 109 H 98-107 mmol/L Carbon Dioxide Level 24 20-31 mmol/L Anion Gap 12 5-15 Blood Urea Nitrogen 9 9-23 mg/dL Creatinine 0.83 0.550-1.02 mg/dL Glomerular Filtration Rate Calc 80 >90 mL/min BUN/Creatinine Ratio 10.8 10.0-20.0 Serum Glucose 124 H 74-106 mg/dL Hemoglobin A1c 5.4 <5.7 % A1C Calcium Level 10.3 8.7-10.4 mg/dL Phosphorus Level 3.6 2.4-5.1 mg/dL Magnesium Level 2.3 1.6-2.6 mg/dL Total Bilirubin 0.7 0.2-1.0 mg/dL Aspartate Amino Transferase (AST) 16 13-40 U/L Alanine Aminotransferase (ALT) 17 7-40 U/L Alkaline Phosphatase 221 H 46-116 U/L Total Protein 7.4 5.7-8.2 g/dL Albumin 4.6 3.2-4.8 g/dL Triglycerides Level 107 < 150 mg/dL Cholesterol Level 174 < 200 mg/dL LDL Cholesterol 124 H < 100 mg/dL HDL Cholesterol 46 40-59 mg/dL Vitamin D 25-Hydroxy 19.9 L 30.0-100 ng/mL Thyroid Stimulating Hormone (TSH) 3.93 0.55-4.78 uIU/mL Test 07/14/25 21:00 Range/Units Lipase 27 12-53 U/L Vitamin B12 Level 255 211-911 pg/mL Microbiology Date/Time Source Procedure Growth Status 07/15/25 20:30 Nose MRSA Screen - Final Complete 07/15/25 10:13 Voided Urine Urine Culture - Preliminary Resulted 07/15/25 03:40 Blood Blood Culture - Preliminary NO GROWTH AFTER 48 HOURS OF INCUBATION. Resulted Assessment 64 year old female with recurring abdominal wall hernias, her abdomen is non tender, morbidly obese, several easily reducible hernias, she is passing flatus and denies nausea or vomiting, will get a gastrografin small bowel series to r/o obstruction, she is not a candidate for elective repair of her hernias and i explained tpo her that as long as she remains this morbidly obese the hernias will continue to recur Plan discussed with: Patient JUNI DRISCOLL MD Jul 17, 2025 12:37
[2025-07-17] MEDS: GASTROGRAFIN 120 ML SOL ONE (14:25)
--- NOTE | 2025-07-17 14:54 | DVHPN2 ---
Reviewed: Care Plan, H&P, Labs, Medications, Previous Orders Changes from previous H/P or p: No Changes General: Per HPI Objective Vitals Vital Signs Date Time Temp Pulse Resp B/P (MAP) Pulse Ox O2 Delivery O2 Flow Rate FiO2 07/17/25 13:00 97.7 70 18 140/81 (100) 95 97.7 07/17/25 10:00 Nasal Cannula* 3 32 Intake/Output Intake and Output 07/17/25 07:00 Intake Total 350 ml Output Total 1 ml Balance 349 ml Intake Oral 0 ml IV Total 350 ml Output Urine Total 1 ml # Voids 2 General Appearance: Alert, Oriented X3, Cooperative Cardiovascular: Normal S1, Normal S2 Abdomen: Soft Neuro: Normal speech Medications Current Medications Medications Dose Ordered Sig/[place] Route Start Time Stop Time Status Last Admin Dose Admin Acetaminophen 325 mg Q4HP PRN PO 07/15/25 01:00 07/15/25 03:02 325 MG Sodium Chloride 1,000 ml @ 125 mls/hr Q8H IV 07/15/25 03:15 07/16/25 13:07 125 MLS/HR Ketorolac Tromethamine 15 mg Q6HPRN PRN IV 07/15/25 03:15 07/20/25 03:14 07/17/25 14:48 15 MG Ondansetron HCl 4 mg Q4HPRN PRN IV 07/15/25 03:15 Pantoprazole Sodium 40 mg DAILY IV 07/15/25 10:00 07/17/25 09:38 40 MG Ceftriaxone Sodium 50 ml @ 100 mls/hr DAILY@0300 IV 07/16/25 03:00 07/17/25 03:22 100 MLS/HR Metronidazole 100 ml @ 100 mls/hr Q8H IV 07/15/25 12:00 07/17/25 12:08 100 MLS/HR Levalbuterol HCl 0.625 mg Q6HR NEB 07/15/25 06:00 07/16/25 23:58 0.625 MG Enoxaparin Sodium 40 mg DAILY SC 07/15/25 10:00 07/16/25 09:15 40 MG Ipratropium [place] 0.5 mg Q6HR NEB 07/17/25 06:00 07/17/25 06:28 0.5 MG Laboratory Results Laboratory Tests 07/15/25 03:32 Urinalysis Test 07/15/25 10:13 Urine Color Light-orange (Yellow) Urine Clarity Clear (Clear) Urine pH 5.5 (5.0-9.0) Urine Specific [place] 1.035 (1.001-1.035) Urine Protein Trace (Negative) H Urine Ketones Trace (Negative) Urine Blood Negative /uL (Negative) Urine Nitrite Negative (Negative) Urine Bilirubin Negative (Negative) Urine Urobilinogen Normal mg/dL (Negative) Urine Leukocyte Esterase Negative /uL (Negative) Urine RBC <1 /hpf (0 - 4) Urine Microscopic WBC < 1 /HPF (0-5) Urine Squamous Epithelial Cells Few /hpf (<5) Urine Bacteria Few /hpf (None Seen) H Urine Mucus Few (None Seen) Urine Yeast (Budding) Occasional /hpf (None Urine Glucose Normal mg/dL (Normal) Microbiology Microbiology Date/Time Source Procedure Growth Status 07/15/25 20:30 Nose MRSA Screen - Final Complete 07/15/25 10:13 Voided Urine Urine Culture - Preliminary Resulted 07/15/25 03:40 Blood Blood Culture - Preliminary NO GROWTH AFTER 48 HOURS OF INCUBATION. Resulted Labs and/or images reviewed: Labs reviewed by me, Image(s) reviewed by me Assessment/Plan Assessment/Plan Rene Armendariz is a 64-year-old female patient who presents to ED with chief complaint of cramping abdominal pain which started on 07/14/2025 at 3:00 p.m. abruptly, associated with nausea and only one episode of vomiting with nonbloody emesis. Patient reports history of umbilical hernia since 2016 with multiple surgeries (four hernia repairs, last one two years ago), but she was recently admitted in 08/2024 due to sepsis secondary to bowel obstruction, requiring tracheostomy and rehabilitation LTAC ([facility], discharged on 01/2025). Patient feels similar symptoms as when she had sepsis secondary to bowel obstruction on 08/2024. Denies any other associated symptoms including fever, chills and syncope. Past medical history: Umbilical hernia initially diagnosed in 2017 requiring multiple surgeries for hernia repair, last one two years ago. Hospitalized in [facility] on 08/2024 due to sepsis secondary to bowel obstruction requiring endotracheal intubation with tracheostomy, and posterior recuperation in LTAC. 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 Ex tobacco abuse (50 pack-year history) quit approximately 10 years ago. Methamphetamine abuse (last time she consume was two weeks ago). Denies any other drug and alcohol abuse Allergy: [place] Home medication: Does not recall. Per EMR levofloxacin and tamsulosin Patient seen and examined at bedside. Patient currently is in acute distress, asking for medication, educated her on avoiding opiates due to probable bowel obstruction, indicated NSAIDs (normal kidney function). Also indicated NG tube, but patient refused to have NG tube placed. Have explained recent in V5 and G- tube and consequences of not being compliant, patient understands risk. Patient will be admitted to telemetry for further management Sepsis secondary to bowel obstruction bowel obstruction Complicated umbilical hernia - s/p multiple hernia repair surgeries Completed abdomen and pelvis CT which shows possible large bowel obstruction and ventral abdominal wall hernias, with stranding within the ventral abdominal wall, nonspecific ground-glass opacities at the lung bases. Indicated bowel rest with NPO, also indicated NG tube placement but patient refused. Consulted Surgeon for further evaluation (all her previous surgeries completed in [facility]) Currently under empiric IV antibiotics (Ceftriaxone and Metronidazole) Ordered pancultures (blood, urine and sputum) Optimized pain management. Avoiding opioids (can worsen bowel obstruction). Indicated NSAIDs at this time and NG tube (patient refused the later) COPD not exacerbated - with no home O2 requirement Indicated bronchodilators, no need for IV steroids Chronic diastolic congestive heart failure (LVEF 65%) Last echocardiogram completed in 2023: mild LVH, LVEF 65%, posterior mitral leaflet calcified, moderately dilated RV and RA Ordered new echocardiogram for eventual pre-op clearance Patient does nor recall home medication Methamphetamine abuse Ex-tobacco abuse (50 pack year history) Counseled strongly on cessation of polysubstance abuse for over 16 minutes. She quit tobacco over 10 years ago. Last methamphetamine use 2 weeks ago. Morbid obesity Gave advice on healthy life style habits Goals of care discussed with patient for over 18 minutes: full code status 07/16/2025: remains NPO. bowel follow through per Gen Surg ordered Plan discussed with: Patient Date of Service: Jul 16, 2025 Billing Provider: VINH GARCIA DO Common Visit Codes: [id number] INP/OBS CARE(HIGH) VINH GARCIA DO Jul 17, 2025 14:54
[2025-07-17] MEDS ORDERED: LACTULOSE 20Gm/30ML SOLN PO PRN (16:00)
--- NOTE | 2025-07-17 19:49 | DVH ---
Procedure: XY SMALL BOWEL SERIES-W GASTROGRA Reason for study/Clinical History: r/o obstruction Comparison Study: XY SMALL BOWEL SERIES-W GASTROGRA on DOS: 09/04/24 Technique: Single contrast small bowel series performed. FINDINGS/IMPRESSION: Initial ski tow operator view of the abdomen and pelvis appears demonstrates no acute process. Contrast is identified within the colon by 4.5 hours. This represents a delay in small bowel transit time without obstruction.
[2025-07-18] VITALS (12 sets, daily range): BP systolic 123–145; BP diastolic 69–81; PULSE 58–75; RESP 18–20; TEMP 96.6–98.5; O2SAT 90–98
--- NOTE | 2025-07-18 11:21 | DVHPN2 ---
Progress Note Date Seen: Jul 18, 2025 Medical Necessity Reason Pt with a Central, PICC or Fol: No Objective vital signs Vital Sign Date Time Temp Pulse Resp B/P (MAP) Pulse Ox O2 Delivery O2 Flow Rate FiO2 07/18/25 07:02 95 Nasal Cannula* 2 28 07/18/25 05:00 97.6 58 18 132/69 (90) 97.6 Total Intake and Output 07/17/25 07/17/25 07/18/25 15:00 23:00 07:00 Intake Total 100 ml 1100 ml 1150 ml Balance 100 ml 1100 ml 1150 ml medications Current Medications Medications Dose Ordered Sig/[place] Route Start Time Stop Time Status Last Admin Dose Admin Acetaminophen 325 mg Q4HP PRN PO 07/15/25 01:00 07/15/25 03:02 325 MG Sodium Chloride 1,000 ml @ 125 mls/hr Q8H IV 07/15/25 03:15 07/18/25 03:30 125 MLS/HR Ketorolac Tromethamine 15 mg Q6HPRN PRN IV 07/15/25 03:15 07/20/25 03:14 07/18/25 08:24 15 MG Ondansetron HCl 4 mg Q4HPRN PRN IV 07/15/25 03:15 Pantoprazole Sodium 40 mg DAILY IV 07/15/25 10:00 07/18/25 08:24 40 MG Ceftriaxone Sodium 50 ml @ 100 mls/hr DAILY@0300 IV 07/16/25 03:00 07/18/25 02:55 100 MLS/HR Metronidazole 100 ml @ 100 mls/hr Q8H IV 07/15/25 12:00 07/18/25 03:30 100 MLS/HR Levalbuterol HCl 0.625 mg Q6HR NEB 07/15/25 06:00 07/16/25 23:58 0.625 MG Enoxaparin Sodium 40 mg DAILY SC 07/15/25 10:00 07/18/25 08:24 40 MG Ipratropium [place] 0.5 mg Q6HR NEB 07/17/25 06:00 07/17/25 06:28 0.5 MG Lactulose 30 ml Q6HPRN PRN PO 07/17/25 16:00 UNV laboratory and microbiology Laboratory Tests 07/15/25 03:32 Test 07/15/25 03:32 Range/Units Serum Glucose 124 H 74-106 mg/dL Problem List/Assessment/Plan Problem List/Assessment/Plan 07/18/25 GASTREOGRAFIN STUDY SHOWS CONTRAST REACHING COLON AND PATIENT REPORTS HAVING HAD SEVERAL BOWEL MOVEMENTS. WILL ALLOW PO, NO OPERATRION BEING PLANNED, HAVE PATIENT RETURN TO DR. YODER WHO DID HER PRIOR HERNIA REPAIRS Plan discussed with: Patient Dietary Evaluation Review Recommendations by RD: Dietary education by RD Comments: 1) If patient remains NPO > 7 days, consider EN/TPN to meet at least 75% estimated daily needs 2) Advance to cardiac diet when medically feasible 3) Refer to outpatient RD for weight management 4) Follow-up with gastroenterology, cardiology, and pulmonology 5) Follow-up with geriatric social work professor r/t polysubstance abuse 6) Continue to monitor I&O, labs, and skin integrity Expected Outcomes/Goals: 1) patient to receive nutritional support within 7 days of NPO status 2) labs and GI symptoms to improve 3) diet to advance 4) gradual wt loss 5) f/u in 3-5 days JUNI DRISCOLL MD Jul 18, 2025 11:21
[2025-07-18 13:45] LABS: Hematocrit 41.5 % (36.0-46.0); Hemoglobin 13.7 g/dL (12.2-16.2); Mean Corpuscular Hemoglobin 28.9 pg (28.0-32.0); Mean Corpuscular Volume 87.7 fL (80.0-100.0); Nucleated Red Blood Cells % 0.1 %
[2025-07-18 14:02] LABS: Alanine Aminotransferase 11 U/L (7-40); Albumin 3.4 g/dL (3.2-4.8); Anion Gap 13 (5-15); BUN/Creatinine Ratio 25.0 (10.0-20.0); Bilirubin, Total 0.8 mg/dL (0.2-1.0); Blood Urea Nitrogen 16 mg/dL (9-23); Calcium 9.2 mg/dL (8.7-10.4); Carbon Dioxide 22 mmol/L (20-31); Potassium 4.4 mmol/L (3.5-5.1)
[2025-07-18 14:03] LABS: Alkaline Phosphatase 145 U/L (46-116); Chloride 112 mmol/L (98-107); Glucose 64 mg/dL (74-106); Sodium 147 mmol/L (136-145); Total Protein 5.4 g/dL (5.7-8.2)
[2025-07-18] MEDS ORDERED: IPRATROPIUM BROM 0.5 MG/2.5ML INH SOL NEB PRN (18:00)
[2025-07-18] MEDS ORDERED: LEVALBUTEROL HCL 1.25 MG/3 ML NEB NEB PRN (18:00)
--- NOTE | 2025-07-18 21:00 | DVHPN2 ---
Reviewed: Care Plan, H&P, Labs, Medications, Previous Orders Changes from previous H/P or p: No Changes General: Per HPI Objective Vitals Vital Signs Date Time Temp Pulse Resp B/P (MAP) Pulse Ox O2 Delivery O2 Flow Rate FiO2 07/18/25 19:16 98 Nasal Cannula* 1 24 07/18/25 17:00 98.1 74 18 123/73 (90) 98.1 Intake/Output Intake and Output 07/18/25 07:00 Intake Total 2350 ml Balance 2350 ml Intake Oral 0 ml IV Total 2350 ml # Voids 3 General Appearance: Alert, Oriented X3, Cooperative Cardiovascular: Normal S1, Normal S2 Abdomen: Soft Neuro: Normal speech Medications Current Medications Medications Dose Ordered Sig/[place] Route Start Time Stop Time Status Last Admin Dose Admin Acetaminophen 325 mg Q4HP PRN PO 07/15/25 01:00 07/15/25 03:02 325 MG Ketorolac Tromethamine 15 mg Q6HPRN PRN IV 07/15/25 03:15 07/20/25 03:14 07/18/25 15:17 15 MG Ondansetron HCl 4 mg Q4HPRN PRN IV 07/15/25 03:15 Pantoprazole Sodium 40 mg DAILY IV 07/15/25 10:00 07/18/25 08:24 40 MG Ceftriaxone Sodium 50 ml @ 100 mls/hr DAILY@0300 IV 07/16/25 03:00 07/18/25 02:55 100 MLS/HR Metronidazole 100 ml @ 100 mls/hr Q8H IV 07/15/25 12:00 07/18/25 20:25 100 MLS/HR Enoxaparin Sodium 40 mg DAILY SC 07/15/25 10:00 07/18/25 08:24 40 MG Lactulose 30 ml Q6HPRN PRN PO 07/17/25 16:00 UNV Ipratropium [place] 0.5 mg Q6HPRN PRN NEB 07/18/25 18:00 Levalbuterol HCl 0.625 mg Q6HPRN PRN NEB 07/18/25 18:00 Laboratory Results Laboratory Tests 07/18/25 13:10 Chemistry Test 07/18/25 13:10 Albumin 3.4 g/dL (3.2-4.8) Calcium Level 9.2 mg/dL (8.7-10.4) Total Protein 5.4 g/dL (5.7-8.2) L LFT Test 07/18/25 13:10 Alanine Aminotransferase (ALT) 11 U/L (7-40) Alkaline Phosphatase 145 U/L (46-116) H Aspartate Amino Transferase (AST) 12 U/L (13-40) L Total Bilirubin 0.8 mg/dL (0.2-1.0) Urinalysis Test 07/15/25 10:13 Urine Color Light-orange (Yellow) Urine Clarity Clear (Clear) Urine pH 5.5 (5.0-9.0) Urine Specific [place] 1.035 (1.001-1.035) Urine Protein Trace (Negative) H Urine Ketones Trace (Negative) Urine Blood Negative /uL (Negative) Urine Nitrite Negative (Negative) Urine Bilirubin Negative (Negative) Urine Urobilinogen Normal mg/dL (Negative) Urine Leukocyte Esterase Negative /uL (Negative) Urine RBC <1 /hpf (0 - 4) Urine Microscopic WBC < 1 /HPF (0-5) Urine Squamous Epithelial Cells Few /hpf (<5) Urine Bacteria Few /hpf (None Seen) H Urine Mucus Few (None Seen) Urine Yeast (Budding) Occasional /hpf (None Urine Glucose Normal mg/dL (Normal) Microbiology Microbiology Date/Time Source Procedure Growth Status 07/15/25 20:30 Nose MRSA Screen - Final Complete 07/15/25 10:13 Voided Urine Urine Culture - Final Complete 07/15/25 03:40 Blood Blood Culture - Preliminary NO GROWTH AFTER 72 HOURS OF INCUBATION. Resulted Labs and/or images reviewed: Labs reviewed by me, Image(s) reviewed by me Assessment/Plan Assessment/Plan Rene Armendariz is a 64-year-old female patient who presents to ED with chief complaint of cramping abdominal pain which started on 07/14/2025 at 3:00 p.m. abruptly, associated with nausea and only one episode of vomiting with nonbloody emesis. Patient reports history of umbilical hernia since 2017 with multiple surgeries (four hernia repairs, last one two years ago), but she was recently admitted in 08/2024 due to sepsis secondary to bowel obstruction, requiring tracheostomy and rehabilitation LTAC ([facility], discharged on 01/2025). Patient feels similar symptoms as when she had sepsis secondary to bowel obstruction on 08/2024. Denies any other associated symptoms including fever, chills and syncope. Past medical history: Umbilical hernia initially diagnosed in 2017 requiring multiple surgeries for hernia repair, last one two years ago. Hospitalized in [facility] on 08/2024 due to sepsis secondary to bowel obstruction requiring endotracheal intubation with tracheostomy, and posterior recuperation in LTAC. 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 Ex tobacco abuse (50 pack-year history) quit approximately 10 years ago. Methamphetamine abuse (last time she consume was two weeks ago). Denies any other drug and alcohol abuse Allergy: [place] Home medication: Does not recall. Per EMR levofloxacin and tamsulosin Patient seen and examined at bedside. Patient currently is in acute distress, asking for medication, educated her on avoiding opiates due to probable bowel obstruction, indicated NSAIDs (normal kidney function). Also indicated NG tube, but patient refused to have NG tube placed. Have explained recent in V5 and G- tube and consequences of not being compliant, patient understands risk. Patient will be admitted to telemetry for further management Sepsis secondary to bowel obstruction bowel obstruction Complicated umbilical hernia - s/p multiple hernia repair surgeries Completed abdomen and pelvis CT which shows possible large bowel obstruction and ventral abdominal wall hernias, with stranding within the ventral abdominal wall, nonspecific ground-glass opacities at the lung bases. Indicated bowel rest with NPO, also indicated NG tube placement but patient refused. Consulted Surgeon for further evaluation (all her previous surgeries completed in [facility]) Currently under empiric IV antibiotics (Ceftriaxone and Metronidazole) Ordered pancultures (blood, urine and sputum) Optimized pain management. Avoiding opioids (can worsen bowel obstruction). Indicated NSAIDs at this time and NG tube (patient refused the later) COPD not exacerbated - with no home O2 requirement Indicated bronchodilators, no need for IV steroids Chronic diastolic congestive heart failure (LVEF 65%) Last echocardiogram completed in 2023: mild LVH, LVEF 65%, posterior mitral leaflet calcified, moderately dilated RV and RA Ordered new echocardiogram for eventual pre-op clearance Patient does nor recall home medication Methamphetamine abuse Ex-tobacco abuse (50 pack year history) Counseled strongly on cessation of polysubstance abuse for over 16 minutes. She quit tobacco over 10 years ago. Last methamphetamine use 2 weeks ago. Morbid obesity Gave advice on healthy life style habits Goals of care discussed with patient for over 18 minutes: full code status 07/16/2025: remains NPO. bowel follow through per Gen Surg ordered 07/17/2025: pt to have bowel follow through Plan discussed with: Patient My Orders Orders - VINH GARCIA DO Procedure Category Date Status Time Soft Diet DIET 07/18/25 Transmitted Lunch Ipratropium Medneb PHA 07/18/25 In Process (Atrovent Medneb) 18:00 Levalbuterol Hcl PHA 07/18/25 In Process (Xopenex Medneb) 18:00 Date of Service: Jul 17, 2025 Billing Provider: VINH GARCIA DO Common Visit Codes: [id number] INP/OBS CARE(HIGH) VINH GARCIA DO Jul 18, 2025 21:00
--- NOTE | 2025-07-18 21:05 | DVHPN2 ---
Reviewed: Care Plan, H&P, Labs, Medications, Previous Orders Changes from previous H/P or p: No Changes General: Per HPI Objective Vitals Vital Signs Date Time Temp Pulse Resp B/P (MAP) Pulse Ox O2 Delivery O2 Flow Rate FiO2 07/18/25 19:16 98 Nasal Cannula* 1 24 07/18/25 17:00 98.1 74 18 123/73 (90) 98.1 Intake/Output Intake and Output 07/18/25 07:00 Intake Total 2350 ml Balance 2350 ml Intake Oral 0 ml IV Total 2350 ml # Voids 3 General Appearance: Alert, Oriented X3, Cooperative Cardiovascular: Normal S1, Normal S2 Abdomen: Soft Neuro: Normal speech Medications Current Medications Medications Dose Ordered Sig/Acacia Route Start Time Stop Time Status Last Admin Dose Admin Acetaminophen 325 mg Q4HP PRN PO 07/15/25 01:00 07/15/25 03:02 325 MG Ketorolac Tromethamine 15 mg Q6HPRN PRN IV 07/15/25 03:15 07/20/25 03:14 07/18/25 15:17 15 MG Ondansetron HCl 4 mg Q4HPRN PRN IV 07/15/25 03:15 Pantoprazole Sodium 40 mg DAILY IV 07/15/25 10:00 07/18/25 08:24 40 MG Ceftriaxone Sodium 50 ml @ 100 mls/hr DAILY@0300 IV 07/16/25 03:00 07/18/25 02:55 100 MLS/HR Metronidazole 100 ml @ 100 mls/hr Q8H IV 07/15/25 12:00 07/18/25 20:25 100 MLS/HR Enoxaparin Sodium 40 mg DAILY SC 07/15/25 10:00 07/18/25 08:24 40 MG Lactulose 30 ml Q6HPRN PRN PO 07/17/25 16:00 UNV Ipratropium [place] 0.5 mg Q6HPRN PRN NEB 07/18/25 18:00 Levalbuterol HCl 0.625 mg Q6HPRN PRN NEB 07/18/25 18:00 Laboratory Results Laboratory Tests 07/18/25 13:10 Chemistry Test 07/18/25 13:10 Albumin 3.4 g/dL (3.2-4.8) Calcium Level 9.2 mg/dL (8.7-10.4) Total Protein 5.4 g/dL (5.7-8.2) L LFT Test 07/18/25 13:10 Alanine Aminotransferase (ALT) 11 U/L (7-40) Alkaline Phosphatase 145 U/L (46-116) H Aspartate Amino Transferase (AST) 12 U/L (13-40) L Total Bilirubin 0.8 mg/dL (0.2-1.0) Urinalysis Test 07/15/25 10:13 Urine Color Light-orange (Yellow) Urine Clarity Clear (Clear) Urine pH 5.5 (5.0-9.0) Urine Specific [place] 1.035 (1.001-1.035) Urine Protein Trace (Negative) H Urine Ketones Trace (Negative) Urine Blood Negative /uL (Negative) Urine Nitrite Negative (Negative) Urine Bilirubin Negative (Negative) Urine Urobilinogen Normal mg/dL (Negative) Urine Leukocyte Esterase Negative /uL (Negative) Urine RBC <1 /hpf (0 - 4) Urine Microscopic WBC < 1 /HPF (0-5) Urine Squamous Epithelial Cells Few /hpf (<5) Urine Bacteria Few /hpf (None Seen) H Urine Mucus Few (None Seen) Urine Yeast (Budding) Occasional /hpf (None Urine Glucose Normal mg/dL (Normal) Microbiology Microbiology Date/Time Source Procedure Growth Status 07/15/25 20:30 Nose MRSA Screen - Final Complete 07/15/25 10:13 Voided Urine Urine Culture - Final Complete 07/15/25 03:40 Blood Blood Culture - Preliminary NO GROWTH AFTER 72 HOURS OF INCUBATION. Resulted Assessment/Plan Assessment/Plan Rene Armendariz is a 64-year-old female patient who presents to ED with chief complaint of cramping abdominal pain which started on 07/14/2025 at 3:00 p.m. abruptly, associated with nausea and only one episode of vomiting with nonbloody emesis. Patient reports history of umbilical hernia since 2017 with multiple surgeries (four hernia repairs, last one two years ago), but she was recently admitted in 08/2024 due to sepsis secondary to bowel obstruction, requiring tracheostomy and rehabilitation LTAC ([place], discharged on 01/2025). Patient feels similar symptoms as when she had sepsis secondary to bowel obstruction on 08/2024. Denies any other associated symptoms including fever, chills and syncope. Past medical history: Umbilical hernia initially diagnosed in 2017 requiring multiple surgeries for hernia repair, last one two years ago. Hospitalized in [facility] on 08/2024 due to sepsis secondary to bowel obstruction requiring endotracheal intubation with tracheostomy, and posterior recuperation in LTAC. 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 Ex tobacco abuse (50 pack-year history) quit approximately 10 years ago. Methamphetamine abuse (last time she consume was two weeks ago). Denies any other drug and alcohol abuse Allergy: [place] Home medication: Does not recall. Per EMR levofloxacin and tamsulosin Patient seen and examined at bedside. Patient currently is in acute distress, asking for medication, educated her on avoiding opiates due to probable bowel obstruction, indicated NSAIDs (normal kidney function). Also indicated NG tube, but patient refused to have NG tube placed. Have explained recent in V5 and G- tube and consequences of not being compliant, patient understands risk. Patient will be admitted to telemetry for further management Sepsis secondary to bowel obstruction bowel obstruction Complicated umbilical hernia - s/p multiple hernia repair surgeries Completed abdomen and pelvis CT which shows possible large bowel obstruction and ventral abdominal wall hernias, with stranding within the ventral abdominal wall, nonspecific ground-glass opacities at the lung bases. Indicated bowel rest with NPO, also indicated NG tube placement but patient refused. Consulted Surgeon for further evaluation (all her previous surgeries completed in [facility]) Currently under empiric IV antibiotics (Ceftriaxone and Metronidazole) Ordered pancultures (blood, urine and sputum) Optimized pain management. Avoiding opioids (can worsen bowel obstruction). Indicated NSAIDs at this time and NG tube (patient refused the later) COPD not exacerbated - with no home O2 requirement Indicated bronchodilators, no need for IV steroids Chronic diastolic congestive heart failure (LVEF 65%) Last echocardiogram completed in 2023: mild LVH, LVEF 65%, posterior mitral leaflet calcified, moderately dilated RV and RA Ordered new echocardiogram for eventual pre-op clearance Patient does nor recall home medication Methamphetamine abuse Ex-tobacco abuse (50 pack year history) Counseled strongly on cessation of polysubstance abuse for over 16 minutes. She quit tobacco over 10 years ago. Last methamphetamine use 2 weeks ago. Morbid obesity Gave advice on healthy life style habits Goals of care discussed with patient for over 18 minutes: full code status 07/16/2025: remains NPO. bowel follow through per Gen Surg ordered 07/17/2025: pt to have bowel follow through 07/18/2025: advance diet as tolerated per GEn Surg time: >45 minutes in the coordination of care Plan discussed with: Patient My Orders Orders - VINH GARCIA DO Procedure Category Date Status Time Soft Diet DIET 07/18/25 Transmitted Lunch Ipratropium Medneb PHA 07/18/25 In Process (Atrovent Medneb) 18:00 Levalbuterol Hcl PHA 07/18/25 In Process (Xopenex Medneb) 18:00 Date of Service: Jul 18, 2025 Billing Provider: VINH GARCIA DO Common Visit Codes: [id number] INP/OBS CARE(HIGH) VINH GARCIA DO Jul 18, 2025 21:05
[2025-07-19] VITALS (11 sets, daily range): BP systolic 129–188; BP diastolic 59–87; PULSE 63–83; RESP 18–20; TEMP 97.7–98.6; O2SAT 92–99
[2025-07-20] VITALS (7 sets, daily range): BP systolic 141–152; BP diastolic 83–90; PULSE 60–79; RESP 18–19; TEMP 97.8–98.9; O2SAT 92–96
--- NOTE | 2025-07-20 09:16 | DVHPN2 ---
Progress Note Date Seen: Jul 20, 2025 Medical Necessity Reason Pt with a Central, PICC or Fol: No Objective vital signs Vital Sign Date Time Temp Pulse Resp B/P (MAP) Pulse Ox O2 Delivery O2 Flow Rate FiO2 07/20/25 07:12 95 Room Air 0.0 07/20/25 07:12 21 07/20/25 05:00 98.9 64 18 144/89 (107) 98.9 Total Intake and Output 07/19/25 07/19/25 07/20/25 15:00 23:00 07:00 Intake Total 870 ml 550 ml Balance 870 ml 550 ml medications Current Medications Medications Dose Ordered Sig/[place]acia Route Start Time Stop Time Status Last Admin Dose Admin Acetaminophen 325 mg Q4HP PRN PO 07/15/25 01:00 07/20/25 09:12 325 MG Ondansetron HCl 4 mg Q4HPRN PRN IV 07/15/25 03:15 Pantoprazole Sodium 40 mg DAILY IV 07/15/25 10:00 07/20/25 09:03 40 MG Ceftriaxone Sodium 50 ml @ 100 mls/hr DAILY@0300 IV 07/16/25 03:00 07/20/25 02:43 100 MLS/HR Metronidazole 100 ml @ 100 mls/hr Q8H IV 07/15/25 12:00 07/20/25 03:32 100 MLS/HR Enoxaparin Sodium 40 mg DAILY SC 07/15/25 10:00 07/20/25 09:04 40 MG Lactulose 30 ml Q6HPRN PRN PO 07/17/25 16:00 UNV Ipratropium [place] 0.5 mg Q6HPRN PRN NEB 07/18/25 18:00 Levalbuterol HCl 0.625 mg Q6HPRN PRN NEB 07/18/25 18:00 laboratory and microbiology Laboratory Tests 07/18/25 13:10 Test 07/18/25 13:10 Range/Units Serum Glucose 64 L 74-106 mg/dL Problem List/Assessment/Plan Problem List/Assessment/Plan 07/18/25 GASTROGRAFIN STUDY SHOWS CONTRAST REACHING COLON AND PATIENT REPORTS HAVING HAD SEVERAL BOWEL MOVEMENTS. WILL ALLOW PO, NO OPERATRION BEING PLANNED, HAVE PATIENT RETURN TO DR. YODER WHO DID HER PRIOR HERNIA REPAIRS 07/20/25 PATIENT CONTINUES TO HAVE BOWEL MOVEMENTS, I WILL SIGN OFF, PLEASE RECALL IF NEEDED Plan discussed with: Patient Dietary Evaluation Review Recommendations by RD: Dietary education by RD Comments: 1) If patient remains NPO > 7 days, consider EN/TPN to meet at least 75% estimated daily needs 2) Advance to cardiac diet when medically feasible 3) Refer to outpatient RD for weight management 4) Follow-up with gastroenterology, cardiology, and pulmonology 5) Follow-up with social media editor r/t polysubstance abuse 6) Continue to monitor I&O, labs, and skin integrity Expected Outcomes/Goals: 1) patient to receive nutritional support within 7 days of NPO status 2) labs and GI symptoms to improve 3) diet to advance 4) gradual wt loss 5) f/u in 3-5 days JUNI DRISCOLL MD Jul 20, 2025 09:16
[2025-07-20] MEDS: KETOROLAC TROMETH 30 MG/ML 1ML VIAL IV PRN (13:02)
[2025-07-20] MEDS ORDERED: LEVO500T91 PO (14:12)
[2025-07-20] MEDS ORDERED: TAMS-35 PO (14:12)
--- NOTE | 2025-07-20 14:13 | DVHPN2 ---
Reviewed: Care Plan, H&P, Labs, Medications, Previous Orders Changes from previous H/P or p: No Changes General: Per HPI Objective Vitals Vital Signs Date Time Temp Pulse Resp B/P (MAP) Pulse Ox O2 Delivery O2 Flow Rate FiO2 07/20/25 13:00 98.1 79 19 152/89 (110) 92 98.1 07/20/25 10:00 Room Air* 0 21 Intake/Output Intake and Output 07/20/25 07:00 Intake Total 1420 ml Balance 1420 ml Intake Oral 1070 ml IV Total 350 ml # Voids 3 # Bowel Movements 1 General Appearance: Alert, Oriented X3, Cooperative Cardiovascular: Normal S1, Normal S2 Abdomen: Soft Neuro: Normal speech Medications Current Medications Medications Dose Ordered Sig/[place] Route Start Time Stop Time Status Last Admin Dose Admin Acetaminophen 325 mg Q4HP PRN PO 07/15/25 01:00 07/20/25 09:12 325 MG Ondansetron HCl 4 mg Q4HPRN PRN IV 07/15/25 03:15 Pantoprazole Sodium 40 mg DAILY IV 07/15/25 10:00 07/20/25 09:03 40 MG Ceftriaxone Sodium 50 ml @ 100 mls/hr DAILY@0300 IV 07/16/25 03:00 07/20/25 02:43 100 MLS/HR Metronidazole 100 ml @ 100 mls/hr Q8H IV 07/15/25 12:00 07/20/25 13:02 100 MLS/HR Enoxaparin Sodium 40 mg DAILY SC 07/15/25 10:00 07/20/25 09:04 40 MG Lactulose 30 ml Q6HPRN PRN PO 07/17/25 16:00 UNV Ipratropium [place] 0.5 mg Q6HPRN PRN NEB 07/18/25 18:00 Levalbuterol HCl 0.625 mg Q6HPRN PRN NEB 07/18/25 18:00 Ketorolac Tromethamine 15 mg Q6HPRN PRN IV 07/20/25 12:00 07/25/25 11:59 07/20/25 13:02 15 MG Laboratory Results Laboratory Tests 07/18/25 13:10 Urinalysis Test 07/15/25 10:13 Urine Color Light-orange (Yellow) Urine Clarity Clear (Clear) Urine pH 5.5 (5.0-9.0) Urine Specific [place] 1.035 (1.001-1.035) Urine Protein Trace (Negative) H Urine Ketones Trace (Negative) Urine Blood Negative /uL (Negative) Urine Nitrite Negative (Negative) Urine Bilirubin Negative (Negative) Urine Urobilinogen Normal mg/dL (Negative) Urine Leukocyte Esterase Negative /uL (Negative) Urine RBC <1 /hpf (0 - 4) Urine Microscopic WBC < 1 /HPF (0-5) Urine Squamous Epithelial Cells Few /hpf (<5) Urine Bacteria Few /hpf (None Seen) H Urine Mucus Few (None Seen) Urine Yeast (Budding) Occasional /hpf (None Urine Glucose Normal mg/dL (Normal) Microbiology Microbiology Date/Time Source Procedure Growth Status 07/15/25 20:30 Nose MRSA Screen - Final Complete 07/15/25 10:13 Voided Urine Urine Culture - Final Complete 07/15/25 03:40 Blood Blood Culture - Final NO GROWTH AFTER 5 DAYS OF INCUBATION. Complete Labs and/or images reviewed: Labs reviewed by me, Image(s) reviewed by me Assessment/Plan Assessment/Plan Rene Armendariz is a 64-year-old female patient who presents to ED with chief complaint of cramping abdominal pain which started on 07/14/2025 at 3:00 p.m. abruptly, associated with nausea and only one episode of vomiting with nonbloody emesis. Patient reports history of umbilical hernia since 2017 with multiple surgeries (four hernia repairs, last one two years ago), but she was recently admitted in 08/2024 due to sepsis secondary to bowel obstruction, requiring tracheostomy and rehabilitation LTAC ([place], discharged on 01/2025). Patient feels similar symptoms as when she had sepsis secondary to bowel obstruction on 08/2024. Denies any other associated symptoms including fever, chills and syncope. Past medical history: Umbilical hernia initially diagnosed in 2017 requiring multiple surgeries for hernia repair, last one two years ago. Hospitalized in [facility] on 08/2024 due to sepsis secondary to bowel obstruction requiring endotracheal intubation with tracheostomy, and posterior recuperation in LTAC. 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 Ex tobacco abuse (50 pack-year history) quit approximately 10 years ago. Methamphetamine abuse (last time she consume was two weeks ago). Denies any other drug and alcohol abuse Allergy: [place] Home medication: Does not recall. Per EMR levofloxacin and tamsulosin Patient seen and examined at bedside. Patient currently is in acute distress, asking for medication, educated her on avoiding opiates due to probable bowel obstruction, indicated NSAIDs (normal kidney function). Also indicated NG tube, but patient refused to have NG tube placed. Have explained recent in V5 and G- tube and consequences of not being compliant, patient understands risk. Patient will be admitted to telemetry for further management Sepsis secondary to bowel obstruction bowel obstruction Complicated umbilical hernia - s/p multiple hernia repair surgeries Completed abdomen and pelvis CT which shows possible large bowel obstruction and ventral abdominal wall hernias, with stranding within the ventral abdominal wall, nonspecific ground-glass opacities at the lung bases. Indicated bowel rest with NPO, also indicated NG tube placement but patient refused. Consulted Surgeon for further evaluation (all her previous surgeries completed in [facility]) Currently under empiric IV antibiotics (Ceftriaxone and Metronidazole) Ordered pancultures (blood, urine and sputum) Optimized pain management. Avoiding opioids (can worsen bowel obstruction). Indicated NSAIDs at this time and NG tube (patient refused the later) COPD not exacerbated - with no home O2 requirement Indicated bronchodilators, no need for IV steroids Chronic diastolic congestive heart failure (LVEF 65%) Last echocardiogram completed in 2023: mild LVH, LVEF 65%, posterior mitral leaflet calcified, moderately dilated RV and RA Ordered new echocardiogram for eventual pre-op clearance Patient does nor recall home medication Methamphetamine abuse Ex-tobacco abuse (50 pack year history) Counseled strongly on cessation of polysubstance abuse for over 16 minutes. She quit tobacco over 10 years ago. Last methamphetamine use 2 weeks ago. Morbid obesity Gave advice on healthy life style habits Goals of care discussed with patient for over 18 minutes: full code status 07/16/2025: remains NPO. bowel follow through per Gen Surg ordered 07/17/2025: pt to have bowel follow through 07/18/2025: advance diet as tolerated per GEn Surg : advancing diet time: >45 minutes in the coordination of care Plan discussed with: Patient My Orders Orders - VINH GARCIA DO Procedure Category Date Status Time Ketorolac Injection PHA 07/20/25 In Process (Toradol Injection) 12:00 Date of Service: Jul 19, 2025 Billing Provider: VINH GARCIA DO Common Visit Codes: [id number] INP/OBS CARE(HIGH) VINH GARCIA DO Jul 20, 2025 14:13
--- NOTE | 2025-07-20 14:15 | DVHDS2 ---
Discharge Summary Date of Admission Jul 15, 2025 at 00:46 Date of Discharge: Jul 20, 2025 Labs/Diagnostic Data: Laboratory Results Test 07/18/25 13:10 07/15/25 10:13 07/15/25 06:44 07/15/25 03:32 White Blood Count 7.7 10^3/uL (4.4-10.8) Red Blood Count 4.74 10^6/uL (4.0-5.20) Hemoglobin 13.7 g/dL (12.2-16.2) Hematocrit 41.5 % (36.0-46.0) Mean Corpuscular Volume 87.7 fL (80.0-100.0) Mean Corpuscular Hemoglobin 28.9 pg (28.0-32.0) Mean Corpuscular Hemoglobin Concent 33.0 g/dL (32.0-36.0) Red Cell Distribution Width 13.8 % (11.8-14.3) Platelet Count 306 10^3/uL (140-450) Mean Platelet Volume 8.0 fL (6.9-10.8) Neutrophils (%) (Auto) 76.7 % (37.0-80.0) Lymphocytes (%) (Auto) 13.4 % (10.0-50.0) Monocytes (%) (Auto) 6.1 % (0.0-12.0) Eosinophils (%) (Auto) 3.4 % (0.0-7.0) Basophils (%) (Auto) 0.4 % (0.0-2.0) Neutrophils # (Auto) 5.9 10 ^3/uL (1.6-8.6) Lymphocytes # (Auto) 1.0 10 ^3/uL (0.4-5.4) Monocytes # (Auto) 0.5 10 ^3/uL (0-1.3) Eosinophils # (Auto) 0.3 10 ^3/uL (0-0.8) Basophils # (Auto) 0 10 ^3/uL (0-0.2) Nucleated Red Blood Cells 0.1 % Sodium Level 147 mmol/L (136-145) Potassium Level 4.4 mmol/L (3.5-5.1) Chloride Level 112 mmol/L (98-107) Carbon Dioxide Level 22 mmol/L (20-31) Anion Gap 13 (5-15) Blood Urea Nitrogen 16 mg/dL (9-23) Creatinine 0.64 mg/dL (0.550-1.02) Glomerular Filtration Rate Calc 100 mL/min (>90) BUN/Creatinine Ratio 25.0 (10.0-20.0) Serum Glucose 64 mg/dL (74-106) Lactic Acid Level 1.0 mmol/L (0.4-2.0) Calcium Level 9.2 mg/dL (8.7-10.4) Total Bilirubin 0.8 mg/dL (0.2-1.0) Aspartate Amino Transferase (AST) 12 U/L (13-40) Alanine Aminotransferase (ALT) 11 U/L (7-40) Alkaline Phosphatase 145 U/L (46-116) Total Protein 5.4 g/dL (5.7-8.2) Albumin 3.4 g/dL (3.2-4.8) Urine Color Light-orange (Yellow) Urine Clarity Clear (Clear) Urine pH 5.5 (5.0-9.0) Urine Specific [place] 1.035 (1.001-1.035) Urine Protein Trace (Negative) Urine Ketones Trace (Negative) Urine Blood Negative /uL (Negative) Urine Nitrite Negative (Negative) Urine Bilirubin Negative (Negative) Urine Urobilinogen Normal mg/dL (Negative) Urine Leukocyte Esterase Negative /uL (Negative) Urine RBC <1 /hpf (0 - 4) Urine Microscopic WBC < 1 /HPF (0-5) Urine Squamous Epithelial Cells Few /hpf (<5) Urine Bacteria Few /hpf (None Seen) Urine Mucus Few (None Seen) Urine Yeast (Budding) Occasional /hpf (None Urine Glucose Normal mg/dL (Normal) Urine Opiates Screen Neg (NEGATIVE) Urine Fentanyl Screen Pos (NEGATIVE) Urine Barbiturates Screen Neg (NEGATIVE) Urine Phencyclidine Screen Neg (NEGATIVE) Urine Amphetamines Screen Pos (NEGATIVE) Urine Benzodiazepines Screen Neg (NEGATIVE) Urine Cocaine Screen Neg (NEGATIVE) Urine Cannabinoids Screen Pos (NEGATIVE) Prothrombin Time 10.5 sec (9.3-11.8) Prothrombin Time INR 0.99 (0.9-1.15) Activated Partial Thromboplast Time 25.1 SEC (24.5-34.5) Hemoglobin A1c 5.4 % A1C (<5.7) Phosphorus Level 3.6 mg/dL (2.4-5.1) Magnesium Level 2.3 mg/dL (1.6-2.6) Triglycerides Level 107 mg/dL (< 150) Cholesterol Level 174 mg/dL (< 200) LDL Cholesterol 124 mg/dL (< 100) HDL Cholesterol 46 mg/dL (40-59) Vitamin D 25-Hydroxy 19.9 ng/mL (30.0-100) Thyroid Stimulating Hormone (TSH) 3.93 uIU/mL (0.55-4.78) Test 07/14/25 21:00 Lipase 27 U/L (12-53) Vitamin B12 Level 255 pg/mL (211-911) Other Laboratory Tests 07/18/25 13:10 Brief Hx & Hospital Course: Rene Armendariz is a 64-year-old female patient who presents to ED with chief complaint of cramping abdominal pain which started on 07/14/2025 at 3:00 p.m. abruptly, associated with nausea and only one episode of vomiting with nonbloody emesis. Patient reports history of umbilical hernia since 2016 with multiple surgeries (four hernia repairs, last one two years ago), but she was recently admitted in 08/2024 due to sepsis secondary to bowel obstruction, requiring tracheostomy and rehabilitation LT[facility] ([facility], discharged on 01/2025). Patient feels similar symptoms as when she had sepsis secondary to bowel obstruction on 08/2024. Denies any other associated symptoms including fever, chills and syncope. Past medical history: Umbilical hernia initially diagnosed in 2017 requiring multiple surgeries for hernia repair, last one two years ago. Hospitalized in [facility] on 08/2024 due to sepsis secondary to bowel obstruction requiring endotracheal intubation with tracheostomy, and posterior recuperation in LTAC. 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 Ex tobacco abuse (50 pack-year history) quit approximately 10 years ago. Methamphetamine abuse (last time she consume was two weeks ago). Denies any other drug and alcohol abuse Allergy: Kinde Home medication: Does not recall. Per EMR levofloxacin and tamsulosin Patient seen and examined at bedside. Patient currently is in acute distress, asking for medication, educated her on avoiding opiates due to probable bowel obstruction, indicated NSAIDs (normal kidney function). Also indicated NG tube, but patient refused to have NG tube placed. Have explained recent in V5 and G- tube and consequences of not being compliant, patient understands risk. Patient will be admitted to telemetry for further management Sepsis secondary to bowel obstruction bowel obstruction Complicated umbilical hernia - s/p multiple hernia repair surgeries Completed abdomen and pelvis CT which shows possible large bowel obstruction and ventral abdominal wall hernias, with stranding within the ventral abdominal wall, nonspecific ground-glass opacities at the lung bases. Indicated bowel rest with NPO, also indicated NG tube placement but patient refused. Consulted Surgeon for further evaluation (all her previous surgeries completed in [facility]) Currently under empiric IV antibiotics (Ceftriaxone and Metronidazole) Ordered pancultures (blood, urine and sputum) Optimized pain management. Avoiding opioids (can worsen bowel obstruction). Indicated NSAIDs at this time and NG tube (patient refused the later) COPD not exacerbated - with no home O2 requirement Indicated bronchodilators, no need for IV steroids Chronic diastolic congestive heart failure (LVEF 65%) Last echocardiogram completed in 2023: mild LVH, LVEF 65%, posterior mitral leaflet calcified, moderately dilated RV and RA Ordered new echocardiogram for eventual pre-op clearance Patient does nor recall home medication Methamphetamine abuse Ex-tobacco abuse (50 pack year history) Counseled strongly on cessation of polysubstance abuse for over 16 minutes. She quit tobacco over 10 years ago. Last methamphetamine use 2 weeks ago. Morbid obesity Gave advice on healthy life style habits Goals of care discussed with patient for over 18 minutes: full code status 07/16/2025: remains NPO. bowel follow through per Gen Surg ordered 07/17/2025: pt to have bowel follow through 07/18/2025: advance diet as tolerated per GEn Surg : advancing diet 07/20/2025: discharge to home Condition at Discharge: Fair Final Diagnosis/Problems List see above Discharge Disposition: Home Discharge Instruct/Medications Diet: Cardiac 2g Na,low cholest Activity: No Restrictions, As Tolerated Scheduled Levofloxacin Hemihydrate (Levaquin 500 Mg), 1 TAB PO DAILY Levofloxacin Hemihydrate (Levofloxacin), 1 TAB PO DAILY Tamsulosin Hcl (Flomax), 1 CAP PO HS Discharge Statement: "Patient was advised to return to the ER or call 911 if any headaches, dizziness, shortness of breath, chest pain, abdominal pain, bleeding, fevers, or worsening of medical condition. Patient was counseled about treatment plan, medications, possible side effects, patientverbalized understanding. All questions were answered to the best of my ability. This discharge took greater then 30 minutes in planning, reviewing documentation, counseling the patient, and discussing with other team members." ASSESSMENT ASSESSMENT Assessment Date of Service: Jul 20, 2025 Billing Provider: VINH GARCIA DO Common Visit Codes: 33451-OMO/OBS DISCH DAY >30min VINH GARCIA DO Jul 20, 2025 14:15
--- NOTE | 2025-07-20 19:11 | DVHINCON2 ---
Date of service: Jul 20, [address] Garcia History of Present Illness Home Meds Active Scripts Levofloxacin Hemihydrate (LEVOFLOXACIN) 500 Mg Tab, 1 TAB PO DAILY, #7 TAB Prov:VINH GARCIA DO 07/20/25 Tamsulosin Hcl (Flomax) 0.4 Mg Cap, 1 CAP PO HS for 30 Days, #30 CAP 11 Refills Prov:VINH GARCIA DO 07/20/25 Discontinued Scripts Levofloxacin Hemihydrate (LEVAQUIN 500 MG) 500 Mg Tab, 1 TAB PO DAILY, #7 TAB Prov:RADHA DE LA TORRE MD 02/25/24 Past Medical History Patient Family History: Diabetes mellitus G8 BROTHER FH: hypertension G8 FATHER H&P Exam Vital Signs Vital Signs Date Time Temp Pulse Resp B/P (MAP) Pulse Ox O2 Delivery O2 Flow Rate FiO2 07/20/25 13:00 98.1 79 19 152/89 (110) 92 98.1 07/20/25 10:00 Room Air* 0 21 Labs/Xrays Labs Test 07/18/25 13:10 07/15/25 10:13 07/15/25 06:44 07/15/25 03:32 Range/Units White Blood Count 7.7 # 4.4-10.8 10^3/uL Red Blood Count 4.74 4.0-5.20 10^6/uL Hemoglobin 13.7 # 12.2-16.2 g/dL Hematocrit 41.5 # 36.0-46.0 % Mean Corpuscular Volume 87.7 80.0-100.0 fL Mean Corpuscular Hemoglobin 28.9 28.0-32.0 pg Mean Corpuscular Hemoglobin Concent 33.0 32.0-36.0 g/dL Red Cell Distribution Width 13.8 11.8-14.3 % Platelet Count 306 140-450 10^3/uL Mean Platelet Volume 8.0 6.9-10.8 fL Neutrophils (%) (Auto) 76.7 37.0-80.0 % Lymphocytes (%) (Auto) 13.4 10.0-50.0 % Monocytes (%) (Auto) 6.1 0.0-12.0 % Eosinophils (%) (Auto) 3.4 0.0-7.0 % Basophils (%) (Auto) 0.4 0.0-2.0 % Neutrophils # (Auto) 5.9 1.6-8.6 10 ^3/uL Lymphocytes # (Auto) 1.0 0.4-5.4 10 ^3/uL Monocytes # (Auto) 0.5 0-1.3 10 ^3/uL Eosinophils # (Auto) 0.3 0-0.8 10 ^3/uL Basophils # (Auto) 0 0-0.2 10 ^3/uL Nucleated Red Blood Cells 0.1 % Sodium Level 147 H 136-145 mmol/L Potassium Level 4.4 3.5-5.1 mmol/L Chloride Level 112 H 98-107 mmol/L Carbon Dioxide Level 22 20-31 mmol/L Anion Gap 13 5-15 Blood Urea Nitrogen 16 9-23 mg/dL Creatinine 0.64 0.550-1.02 mg/dL Glomerular Filtration Rate Calc 100 >90 mL/min BUN/Creatinine Ratio 25.0 H 10.0-20.0 Serum Glucose 64 L 74-106 mg/dL Lactic Acid Level 1.0 0.4-2.0 mmol/L Calcium Level 9.2 8.7-10.4 mg/dL Total Bilirubin 0.8 0.2-1.0 mg/dL Aspartate Amino Transferase (AST) 12 L 13-40 U/L Alanine Aminotransferase (ALT) 11 7-40 U/L Alkaline Phosphatase 145 H 46-116 U/L Total Protein 5.4 L 5.7-8.2 g/dL Albumin 3.4 3.2-4.8 g/dL Urine Color Light-orange Yellow Urine Clarity Clear Clear Urine pH 5.5 5.0-9.0 Urine Specific [place] 1.035 1.001-1.035 Urine Protein Trace H Negative Urine Ketones Trace Negative Urine Blood Negative Negative /uL Urine Nitrite Negative Negative Urine Bilirubin Negative Negative Urine Urobilinogen Normal Negative mg/dL Urine Leukocyte Esterase Negative Negative /uL Urine RBC <1 0 - 4 /hpf Urine Microscopic WBC < 1 0-5 /HPF Urine Squamous Epithelial Cells Few <5 /hpf Urine Bacteria Few H None Seen /hpf Urine Mucus Few None Seen Urine Yeast (Budding) Occasional None Seen /hpf Urine Glucose Normal Normal mg/dL Urine Opiates Screen Neg NEGATIVE Urine Fentanyl Screen Pos NEGATIVE Urine Barbiturates Screen Neg NEGATIVE Urine Phencyclidine Screen Neg NEGATIVE Urine Amphetamines Screen Pos NEGATIVE Urine Benzodiazepines Screen Neg NEGATIVE Urine Cocaine Screen Neg NEGATIVE Urine Cannabinoids Screen Pos NEGATIVE Prothrombin Time 10.5 9.3-11.8 sec Prothrombin Time INR 0.99 0.9-1.15 Activated Partial Thromboplast Time 25.1 24.5-34.5 SEC Hemoglobin A1c 5.4 <5.7 % A1C Phosphorus Level 3.6 2.4-5.1 mg/dL Magnesium Level 2.3 1.6-2.6 mg/dL Triglycerides Level 107 < 150 mg/dL Cholesterol Level 174 < 200 mg/dL LDL Cholesterol 124 H < 100 mg/dL HDL Cholesterol 46 40-59 mg/dL Vitamin D 25-Hydroxy 19.9 L 30.0-100 ng/mL Thyroid Stimulating Hormone (TSH) 3.93 0.55-4.78 uIU/mL Test 07/14/25 21:00 Range/Units Lipase 27 12-53 U/L Vitamin B12 Level 255 211-911 pg/mL Microbiology Date/Time Source Procedure Growth Status 07/15/25 20:30 Nose MRSA Screen - Final Complete 07/15/25 10:13 Voided Urine Urine Culture - Final Complete 07/15/25 03:40 Blood Blood Culture - Final NO GROWTH AFTER 5 DAYS OF INCUBATION. Complete ORION NEWBY MD Jul 20, 2025 19:11
== END 2025-07-20 16:40 | disposition home or self-care (01) | DRG 720 ==
LOC: EDUNIT# 20:29 → ER 20:29 → EDBD 20:29 → OVERFLOW 07-15 00:46 → TELE-WESTW 07-15 16:30
PROVIDERS: ADMIT Internal Medicine; ATTEND Internal Medicine
DX: A41.9 Sepsis, unspecified organism (principal); K43.6 Other and unspecified ventral hernia with obstruction, without gangrene; I11.0 Hypertensive heart disease with heart failure; J96.10 Chronic respiratory failure, unspecified whether with hypoxia or hypercapnia; K42.0 Umbilical hernia with obstruction, without gangrene; I50.32 Chronic diastolic (congestive) heart failure; J44.9 Chronic obstructive pulmonary disease, unspecified; E66.01 Morbid (severe) obesity due to excess calories; I48.91 Unspecified atrial fibrillation; F15.10 Other stimulant abuse, uncomplicated; Z88.6 Allergy status to analgesic agent; Z83.3 Family history of diabetes mellitus; Z82.49 Family history of ischemic heart disease and other diseases of the circulatory system; Z87.442 Personal history of urinary calculi; Z87.891 Personal history of nicotine dependence; Z79.899 Other long term (current) drug therapy; Z68.42 Body mass index [BMI] 45.0-49.9, adult
CPT/HCPCS: 36415; 71045; 74177; 74250; 80053; 80061; 80307; 81001; 82306; 82607; 83036; 83605; 83690; 83735; 84100; 84443; 85025; 85610; 85730; 87040; 87081; 87086; 93005; 93306; 94640; G0378; J1885; J2405; J2470; J3490